=== PATIENT | male | born 1950 | race Caucasian/White ===

== ENCOUNTER 2018-01-15 14:40 | Inpatient (IN) | payer OTHER, MEDICARE ==
[~2018-01-15] VITALS: Ht 188 cm; Wt 106.6 kg
[~2018-01-15 14:40] MED LIST: AMLODIPINE BESYL5 M1 PO; HYZAAR 25 MG-101 TAB PO; LOSARTAN POTAS100 M1 PO; NORVASC 5MG TAB5 MG PO; TYLENOL XSTR500 MG PO; VALTREX1000 MG PO
--- NOTE | 2018-01-15 15:00 | ED DYSPNEA/ASTHMA COMPLAINT ---
History of Present Illness General Chief Complaint: Dyspnea (COPD, CHF, Other) Stated Complaint: SOB Source: patient, old records, EMS Exam Limitations: no limitations Vital Signs & Intake/Output Vital Signs & Intake/Output ED Intake and Output 01/19 0000 01/18 1200 Intake Total 350 Output Total Balance 350 Intake, Oral 350 Allergies Coded Allergies: No Known Allergies (09/13/17) Triage Note: 67 YO MALE FRANSISCO FROM URGENT CARE. PT STATES HE HAS BEEN HAVING EXERTIONAL SOB FOR THE PAST COUPLE DAYS. STATES HE HAS ARTHRITIS IN HIS BACK AND HAS BEEN TAKING IT EASY AT HOME. STATES TODAY THE SOB GOT WORSE AND HE WENT TO THE URGENT CARE WHO SENT HIM HERE. DENEIS ANY PAIN. STATSE TOOK 2 TYLENOL TABS THIS AM FOR HIS BACK PAIN WITH RELIEF. RA SATS 97%. HR 110s ON MONITOR. Triage Nurses Notes Reviewed? yes Onset: Abrupt Duration: day(s): (3), constant, getting worse Timing: recent history Severity: moderate Activities at Onset: none Modifying Factors: Improves With: rest. Worsens With: movement. Associated Symptoms: denies HPI: 67-year-old male history of hypertension high cholesterol presents brought in by an was from urgent care. The patient states that he has had progressively worsening exertional dyspnea now at rest for the past few days. No history of underlying lung disease or shortness of breath in the past. No cough or pain with inspiration or hemoptysis. No chest pain. He does not smoke. The patient was recently seen by his orthopedist because he was having a sore lower back for which she's been wearing a brace. He denies recent immobility he's been caring for his who recently had hip surgery. No leg swelling. No history of similar symptoms in the past (Clarke MONTEIRO,Pipo) Reconcile Medications Amlodipine Besylate 5 MG TABLET 1 TAB PO DAILY BP (Reported) Losartan Potassium 100 MG TABLET 1 TAB PO DAILY BP (Reported) Meloxicam 7.5 MG TABLET 1 TAB PO DAILY inflammation pain (Reported) Rivaroxaban (Xarelto) 15 MG TABLET 1 TAB PO BID pulmonary embolism take 1 tab (15 mg) twice a day for 3 weeks then switch to 1 tab (20 mg) daily with food. Rivaroxaban (Xarelto) 20 MG TABLET 1 TAB PO DAILY pulmonary embolism with food (Andrew CORTES,Nino Laguna) Past History Travel History Traveled to [place] past 21 day No Medical History Any Pertinent Medical History? see below for history Cardiovascular: hypertension, hyperlipidemia Gastrointestinal: pancreatitis Musculoskeletal: rotator cuff injury History of MRSA: No History of VRE: No History of CDIFF: No Tetanus Vaccine: 09/13/17 Surgical History Surgical History: none Psychosocial History Who do you live with Spouse Services at Home None What is your primary language Nigerien Tobacco Use: Never used Family History Family History, If Any: SISTER FH: colon cancer Hx Contributory? No (Pipo Martins) Review of Systems Review of Systems Constitutional: Reports: see HPI. Comments Review of systems: See HPI, All other systems negative. Constitutional, no chills no fever HEENT: no sore throat no congestion Cardiovascular: No chest pain , Skin: no rashes, no change in skin Respiratory: dyspnea no cough no sputum GI: No nausea no vomiting, no diarrhea : No dysuria Muscle skeletal: No joint pain, no back pain, Neurologic: , no headache Heme/endocrine: No bruising Immunology: No lymphadenopathy (Pipo Martins) Physical Exam Physical Exam General Appearance: well developed/nourished, alert, awake Respiratory: normal breath sounds Comments: Well-developed well-nourished person in no acute distress HEENT: Normal EENT exam; PERRL, EOMI, HEAD is atraumatic. moist mucous membranes. Neck: Supple, normal range of motion Back: Nontender, Full range of motion Cardiovascular: Regular rate and rhythms no murmurs rubs or gallops, normal JVP Respiratory: Chest nontender.There were no bony deformities, no asymmetry. No respiratory distress. Patient speaking in full complete sentences. Breath sounds clear to auscultation bilaterally: NO W/R/R Abdomen: Soft, nontender nondistended, no appreciable organomegaly. Normal bowel sounds. No rebound/guarding, No ascites. Rectal: Nontender. Heme negative stool. Extremity: No edema, full range of motion of extremities, Neuro: Alert oriented x3, motor sensory normal, There were no obvious focal neurologic abnormalities. Skin: No appreciable rash on exposed skin, skin is warm and dry. Psych: Mood and affect is normal, memory and judgment is normal. Core Measures ACS in differential dx? Yes CVA/TIA Diagnosis No Sepsis Present: No Sepsis Focused Exam Completed? No (Pipo Martins) Progress Differential Diagnosis: asthma, AMI, CHF, COPD, pericarditis, pulmonary embolism , pneumonia, pneumothorax, unstable angina Diagnostic Imaging: Viewed by Me: Radiology Read. Discussed w/RAD: Radiology Read. Radiology Impression: PATIENT: CHARLINE SHAFER PRESENT AGE: 67 PATIENT ACCOUNT NO: [id number] : 52 LOCATION: ER ORDERING PHYSICIAN: Pipo MONTEIRO SERVICE DATE: 01/15/18150 EXAM TYPE: RAD - XRY-PORTABLE CHEST XRAY EXAMINATION: XR PORTABLE CHEST CLINICAL INFORMATION: Dyspnea, evaluate for pneumonia or CHF. COMPARISON: Chest x-ray dated 01/19/2015. TECHNIQUE: Portable frontal view of the chest was obtained. FINDINGS: No significant abnormality is noted involving the heart, lungs, mediastinum, bony thorax or soft tissues. IMPRESSION: No acute cardiopulmonary findings, no significant interval change compared to the previous study. DICTATED BY: Estrella Ludwig MD DATE/TIME DICTATED:01/15/181530 ASSOCIATE PROFESSOR:ASMITA DATE/TIME TRANSCRIBED:01/15/181530 CONFIDENTIAL, DO NOT COPY WITHOUT APPROPRIATE AUTHORIZATION. <Electronically signed in Other Vendor System> SIGNED BY: Estrella Lduwig MD 01/15/18 1536, PATIENT: CHARLINE SHAFER PRESENT AGE: 67 PATIENT ACCOUNT NO : [id number] : 52 LOCATION: [facility] ORDERING PHYSICIAN: Pipo MONTEIRO SERVICE DATE: 01/15/18651 EXAM TYPE: CAT - CTA CHEST-PULMONARY EMBOLISM EXAMINATION: CT ANGIOGRAM OF THE CHEST WITH AND WITHOUT CONTRAST (CT PULMONARY ANGIOGRAM FOR PE) CLINICAL INFORMATION: Dyspnea. COMPARISON: Portable chest . CT of abdomen and pelvis 01/19/2016, 11/26/2014. TECHNIQUE: Prior to contrast administration, noncontrast localization images were obtained. Subsequently, multidetector volumetric imaging was performed from the thoracic inlet to below the diaphragms following the administration of 95 mL Optiray 350 intravenous contrast. No contrast reaction reported. Sagittal, coronal, and MIP oblique sagittal reformatted images were obtained on the CT workstation, uploaded to PACS, and reviewed. DLP: 532.45 mGy-cm FINDINGS: QUALITY OF STUDY/ CONTRAST BOLUS: Satisfactory. PULMONARY ARTERIES: There is extensive bilateral pulmonary emboli. Multiple emboli seen in both the right and left lungs in the secondary and tertiary branches of the vessels involving all lobes. THORACIC AORTA: No aneurysm or dissection. Scattered vascular wall calcification of the aorta at the aortic arch. LUNG: No focal consolidation, nodules or masses. PLEURA: No pleural effusion or pneumothorax. MEDIASTINUM: Normal heart size. No pericardial effusion. No hilar or mediastinal lymphadenopathy. No evidence of septal bowing or right heart strain. CHEST WALL/AXILLA: No axillary or internal mammary lymphadenopathy. OSSEOUS STRUCTURES: Degenerative spondylosis of spine with multilevel endplate spurring of the vertebrae. UPPER ABDOMEN: Focal low attenuation in the left lobe of liver adjacent to the gallbladder fossa and around a geographic area measuring about 5 cm. This is likely focal fatty infiltration. Not seen on the CAT scan of 01/19/2015. This can be further assessed with MRI. No reflux of contrast into the hepatic veins to suggest elevated right heart pressures. IMPRESSION: 1. Extensive bilateral pulmonary emboli. 2. Focal low-attenuation left lobe of liver near the gallbladder fossa likely from focal fatty change. This can be further assessed with dynamic MRI imaging. VTE: Negative. This critical result was discussed with Pipo Mir on 01/15/2018, 5:10 PM and it was ascertained that the content and urgency of the report was understood at the time of direct communication. DICTATED BY: Evan Garcia MD DATE/TIME DICTATED:01/15/181702 ASSOCIATE PROFESSOR:ASMITA DATE/TIME TRANSCRIBED:01/15/181702 CONFIDENTIAL, DO NOT COPY WITHOUT APPROPRIATE AUTHORIZATION. <Electronically signed in Other Vendor System> SIGNED BY: Evan Garcia MD 01/15/18 173 Initial ED EKG: stach at 100, no acute st seg changes, normal axis Rhythm Strip: sinus tachycardia (Pipo Martins) Plan of Care: Orders Procedure Date/time Status Heart Healthy Diet 01/16 B Active Patient Data 01/15 1835 Active ED Holding Orders 01/15 1719 Active Admit to inpatient 01/15 1719 Active Vital Signs 01/15 1719 Active Code Status 01/15 1719 Active Add-on Test (ER Only) 01/15 1714 Active PARTIAL THROMBOPLASTIN TIME 01/15 1550 Complete FingerStick- Glucose 01/15 1547 Active D-DIMER 01/15 1506 Complete Telemetry/Cube Cutter 01/15 1500 Active TROPONIN LEVEL 01/15 1500 Complete PROTHROMBIN TIME 01/15 1500 Complete COMPREHENSIVE METABOLIC PANEL 01/15 1500 Complete CBC WITHOUT DIFFERENTIAL 01/15 1500 Complete B-TYPE NATRIURETIC PEP (BNP) 01/15 1500 Complete Intake & Output 01/15 1448 Active EKG 01/15 1442 Active Laboratory Tests 01/15/18 1550: PT 13.1 H, INR 1.25 H 01/15/18 1550: Anion Gap 14, Estimated GFR > 60, BUN/Creatinine Ratio 16.7, Glucose 111 H, Calcium 9.4, Total Bilirubin 0.4, AST 20, ALT 10 L, Alkaline Phosphatase 81, Troponin I 0.59 *H, Dok-E-Qiponxinqsc Pept 864 H, Total Protein 7.7, Albumin 4.2, Globulin 3.5, Albumin/Globulin Ratio 1.2, APTT 31, D-Dimer High Sensitivty 61869 H, CBC w Diff NO MAN DIFF REQ, RBC 3.81 L, MCV 86.7, MCH 28.3, MCHC 32.6 L, RDW 13.4, MPV 8.7, Gran % 71.7, Lymphocytes % 15.8 L, Monocytes % 8.5, Eosinophils % 3.0, Basophils % 1.0, Absolute Granulocytes 8.1 H, Absolute Lymphocytes 1.8, Absolute Monocytes 1.0 H, Absolute Eosinophils 0.3, Absolute Basophils 0.1 Labs ordered juanjo Capps reviewed patient make you sign Medrol DuoNeb with minimal improvement after breathing treatment plan patient placed on 2 L by myself medicated morphine 4 Nicolas grams IV for comfort as he cannot find a comfortable position secondary to his chronic lower back pain CTA ordered after I discussed with the patient his labs to date and a troponin Case discussed with Dr. Morales heparin ordered pending CTA results Dr. Morales spoke with Dr. ALICEA- we will admit to telemetry I spoke with Dr. Mckee's community relations assistant who will consult there has been no chest pain, no ekg changes (Pipo Martins) (Andrew CORTES,Nino Laguna) Departure Departure Time of Disposition: 1708 Disposition: STILL A PATIENT Condition: Stable Clinical Impression Primary Impression: Pulmonary emboli Secondary Impressions: Elevated troponin, Liver lesion Referrals: Doroteo CORTES,Evan Payne (PCP/Family) Departure Forms: Customer Survey General Discharge Information Admission Note Spoke With: Cheko CORTES,Debbie Documentation of Exam: Documentation of any treatments & extenuating circumstances including Concerns Regarding Discharge (functional status, medication knowledge or non-compliance, living conditions, etc.) that warrant an admission rather than observation: CARDIOLOGY CONSULT, TREND LABS, TREND TROPS TELE MONOTRING PRMEATURE DISCHARGE MEDICALLY HARMFUL, MRI OF ABD TO INVESTIGATE LIVER FINDINGS (Pipo Martins) Departure Prescriptions: Current Visit Scripts Rivaroxaban (Xarelto) 1 TAB PO BID #42 TAB take 1 tab (15 mg) twice a day for 3 weeks then switch to 1 tab (20 mg) daily with food. Rivaroxaban (Xarelto) 1 TAB PO DAILY #14 TAB with food Admission Note Documentation of Exam: Documentation of any treatments & extenuating circumstances including Concerns Regarding Discharge (functional status, medication knowledge or non-compliance, living conditions, etc.) that warrant an admission rather than observation: PA/OFFICE SPEC Co-Sign Statement Statement: ED Attending supervision documentation- [X] I saw and evaluated the patient. I have also reviewed all the pertinent lab results and diagnostic results. I agree with the findings and the plan of care as documented in the PA's/OFFICE SPEC's documentation. [X] I have reviewed the ED Record and agree with the PA's/OFFICE SPEC's documentation. [] Additions or exceptions (if any) to the PAs/OFFICE SPEC's note and plan are summarized below: [PT TO BE ADMITTED IV HEPARIN, CARDIOLOGY CONSULTATION, PULM CONSULT, ECHO, ] (Andrew CORTES,Nino Laguna) Critical Care Note Critical Care Note Critical Care Time: 30-74 min (Pipo Martins)
--- NOTE | 2018-01-15 15:36 | RADIOLOGY REPORT ---
EXAMINATION: XR PORTABLE CHEST CLINICAL INFORMATION: Dyspnea, evaluate for pneumonia or CHF. COMPARISON: Chest x-ray dated 01/19/2015. TECHNIQUE: Portable frontal view of the chest was obtained. FINDINGS: No significant abnormality is noted involving the heart, lungs, mediastinum, bony thorax or soft tissues. IMPRESSION: No acute cardiopulmonary findings, no significant interval change compared to the previous study.
[2018-01-15 16:10] LABS: PT 13.1 SEC (9.4-12.5)
[2018-01-15 16:11] LABS: ABSOLUTE BASOPHIL COUNT 0.1 /CUMM (0.0-0.2); ABSOLUTE EOSINOPHIL COUNT 0.3 /CUMM (0.0-0.7); ABSOLUTE GRANULOCYTE CT 8.1 /CUMM (1.4-6.5); ABSOLUTE LYMPH COUNT 1.8 /CUMM (1.2-3.4); GRANULOCYTE % 71.7 % (42.2-75.2); MEAN CORPUSCULAR HGB 28.3 PG (27.0-31.0); MEAN CORPUSCULAR HGB CONC 32.6 G/DL (33.0-37.0); MEAN CORPUSCULAR VOLUME 86.7 FL (80.0-94.0); MEAN PLATELET VOLUME 8.7 FL (7.4-10.4); PLATELET COUNT 361 /CUMM (130-400); RBC DISTRIBUTION WIDTH 13.4 % (11.5-14.5); RED BLOOD CELL CT 3.81 /CUMM (4.70-6.10); WHITE BLOOD CELL COUNT 11.2 /CUMM (4.8-10.8)
[2018-01-15 17:29] LABS: PTT 31 SEC (25-37)
--- NOTE | 2018-01-15 17:30 | History & Physical ---
General Information and HPI Allergies/Medications Allergies: Coded Allergies: No Known Allergies (09/13/17) Home Med list Amlodipine Besylate 5 MG TABLET 1 TAB PO DAILY BP (Reported) Losartan Potassium 100 MG TABLET 1 TAB PO DAILY BP (Reported) Past History Travel History Traveled to [place] past 21 day No Medical History Cardiovascular: hypertension, hyperlipidemia Gastrointestinal: pancreatitis Musculoskeletal: rotator cuff injury History of MRSA: No History of VRE: No History of CDIFF: No Tetanus Vaccine: 09/13/17 Surgical History Surgical History: none Past Family/Social History Family History Relations & Conditions if any SISTER FH: colon cancer Psychosocial History Services at Home: None
--- NOTE | 2018-01-15 17:30 | CT SCAN REPORT ---
EXAMINATION: CT ANGIOGRAM OF THE CHEST WITH AND WITHOUT CONTRAST (CT PULMONARY ANGIOGRAM FOR PE) CLINICAL INFORMATION: Dyspnea. COMPARISON: Portable chest 01/15/2018. CT of abdomen and pelvis 01/19/2016, 11/26/2014. TECHNIQUE: Prior to contrast administration, noncontrast localization images were obtained. Subsequently, multidetector volumetric imaging was performed from the thoracic inlet to below the diaphragms following the administration of 95 mL Optiray 350 intravenous contrast. No contrast reaction reported. Sagittal, coronal, and MIP oblique sagittal reformatted images were obtained on the CT workstation, uploaded to PACS, and reviewed. DLP: 532.45 mGy-cm FINDINGS: QUALITY OF STUDY/CONTRAST BOLUS: Satisfactory. PULMONARY ARTERIES: There is extensive bilateral pulmonary emboli. Multiple emboli seen in both the right and left lungs in the secondary and tertiary branches of the vessels involving all lobes. THORACIC AORTA: No aneurysm or dissection. Scattered vascular wall calcification of the aorta at the aortic arch. LUNG: No focal consolidation, nodules or masses. PLEURA: No pleural effusion or pneumothorax. MEDIASTINUM: Normal heart size. No pericardial effusion. No hilar or mediastinal lymphadenopathy. No evidence of septal bowing or right heart strain. CHEST WALL/AXILLA: No axillary or internal mammary lymphadenopathy. OSSEOUS STRUCTURES: Degenerative spondylosis of spine with multilevel endplate spurring of the vertebrae. UPPER ABDOMEN: Focal low attenuation in the left lobe of liver adjacent to the gallbladder fossa and around a geographic area measuring about 5 cm. This is likely focal fatty infiltration. Not seen on the CAT scan of 01/19/2015. This can be further assessed with MRI. No reflux of contrast into the hepatic veins to suggest elevated right heart pressures. IMPRESSION: 1. Extensive bilateral pulmonary emboli. 2. Focal low-attenuation left lobe of liver near the gallbladder fossa likely from focal fatty change. This can be further assessed with dynamic MRI imaging. VTE: Negative. This critical result was discussed with Pipo Mir on 01/15/2018, 5:10 PM and it was ascertained that the content and urgency of the report was understood at the time of direct communication.
--- NOTE | 2018-01-15 19:31 | History & Physical ---
Melissa CORTES,[facility] 01/15/181930: General Information and [facility] MD Statement: I have seen and personally examined CHARLINE SHAFER and documented this H&P. The patient is a 67 year old M who presented with a patient stated chief complaint of [shortness of breath]. Source of Information: patient Exam Limitations: no limitations History of Present Illness: Patient is a 67-year-old man with a past medical history of hypertension, hyperlipidemia, alcohol abuse with pancreatitis, vocal cord polyp and back pain due to cervical degenerative joint disease with recent aggravation in November ( on a back brace for symptomatic relief). He presents with shortness of breath of one-week duration with worsening 3 days ago. Patient noticed that had progressively worsening shortness of breath at exertion which started last week. Initially he was able to go up a flight of stairs and feels slightly short of breath but this progressed until he could only walk a few steps and felt extremity short of breath. Today he was feeling short of breath even at rest and while he was in the shower he experienced lightheadedness and palpitations then decided to go for evaluation in the urgent care clinic. He was sent to the ER from there. He denies chest pains, diaphoresis, orthopnea, leg swelling. However he did notice pain in his right calf and leg which he called a "charley horse" starting 1 week ago-at the onset of shortness of breath. The right leg pain subsequently resolved after a few days. He denies recent long distance travel or trauma to his legs. He denies prior history of DVT or pulmonary embolism. He has been fairly active despite his back pain for which he uses a back brace and is seen by orthopedic surgeon Dr. Bullock. Of note he reports intentional weight loss of about 70 pounds over the past 3 years from diet modifications. He denies loss of appetite change in bowel habits , nausea or abdominal pain. He denies dysuria, hematuria or difficulty with urine. He denies cough, fevers, chills or malaise. Allergies/Medications Allergies: Coded Allergies: No Known Allergies (09/13/17) Home Med list Amlodipine Besylate 5 MG TABLET 1 TAB PO DAILY BP (Reported) Losartan Potassium 100 MG TABLET 1 TAB PO DAILY BP (Reported) Meloxicam 7.5 MG TABLET 1 TAB PO DAILY inflammation pain (Reported) Past History Travel History Traveled to [place] past 21 day No Medical History Cardiovascular: hypertension, hyperlipidemia Gastrointestinal: pancreatitis Musculoskeletal: rotator cuff injury History of MRSA: No History of VRE: No History of CDIFF: No Tetanus Vaccine: 09/13/17 Surgical History Surgical History: rotator cuff repair Past Family/Social History Family History Relations & Conditions if any SISTER FH: colon cancer BROTHER FHx: congenital heart disease Psychosocial History Where do you live? Home Who Do You Live With? spouse Services at Home: None Primary Language: Hungarian Smoking Status: Former Smoker (quit 30 years ago. 3 pack yrs) ETOH Use: occasional use Functional Ability Ambulation: independent Review of Systems Review of Systems Constitutional: Reports: see HPI. Exam & Diagnostic Data Last 24 Hrs of Vital Signs/I&O Vital Signs Date Time Temp Pulse Resp B/P B/P Pulse O2 O2 Flow FiO2 Mean Ox Delivery Rate 01/15 2236 98.1 107 14 134/82 97 01/15 2157 Nasal 2.0L Cannula 01/15 2130 Nasal 2.0L Cannula 01/15 2043 98.7 117 16 150/84 92 01/15 1946 98.6 105 18 110/74 97 Nasal 2.0L Cannula 01/15 1639 98.4 103 18 116/83 100 Nasal 2.0L Cannula 01/15 1520 95 01/15 1448 97 Room Air 01/15 1445 97.3 113 18 126/73 97 Room Air Intake & Output 01/15 1600 01/15 0800 01/15 0000 Intake Total 0 Output Total Balance 0 Intake, Oral 0 Patient 235 lb Weight Weight Reported by Patient Measurement Method Physical Exam General Appearance Alert, Oriented X3, Cooperative, Mild Distress Skin No Rashes Skin Temp/Moisture Exam: Warm/Dry Sepsis Skin Exam (color): Normal for Ethnicity HEENT Atraumatic, PERRLA, EOMI, Mucous Membr. moist/pink Neck Supple, No JVD, No thryomegaly Lymphatic Cervical nl Cardiovascular Regular Rate, Normal S1, Normal S2, No Murmurs Lungs Clear to Auscultation, Normal Air Movement Abdomen Normal Bowel Sounds, Soft, No Tenderness, No Hepatospenomegaly, No Masses Neurological Normal Speech, Strength at 5/5 X4 Ext, Normal Tone, Sensation Intact, Cranial Nerves 3-12 NL Extremities No Edema, Normal Pulses Diagnostic Data CXR Results IMPRESSION: No acute cardiopulmonary findings, no significant interval change compared to the previous study. Other Results CTA chest IMPRESSION: 1. Extensive bilateral pulmonary emboli. 2. Focal low-attenuation left lobe of liver near the gallbladder fossa likely from focal fatty change. This can be further assessed with dynamic MRI imaging. Assessment/Plan Assessment: Patient is a 67-year-old man with a past medical history of hypertension, hyperlipidemia, alcohol abuse with pancreatitis, vocal cord polyp and back pain due to cervical degenerative joint disease with recent aggravation in November ( on a back brace for symptomatic relief). He presents with shortness of breath of one-week duration with worsening 3 days ago, and transient right calf/leg pain 1 week ago. He was tachypneic, tachycardic with an elevated d-dimer on presentation. He had a CT angiogram of his chest that shows extensive bilateral pulmonary embolism but without overt signs of elevated right heart pressures. He has elevated troponin to 0.59 ng/ML with no chest pain and no EKG changes which could possibly be secondary to type II GA. He is hemodynamically stable and is on an IV heparin drip at this time which will be continued. There is some concern that his pulmonary embolism is unprovoked and he will need to be investigated with a hematology oncology workup and hematology consultation. Problem list 1. Acute bilateral pulmonary embolism 2. Suspected right leg DVT 3. Elevated troponin secondary to probable type II GA 3. Hypertension 4. Hyperlipidemia Plan * Admit to telemetry * Continue IV heparin drip pulmonary embolism protocol * Serial EKGs and troponins and trend troponins to a peak * Monitor CBC while on heparin drip * Urgent echocardiogram * Doppler ultrasound bilateral lower extremities to rule out DVT * Continue oxygen by nasal cannula to keep O2 sat greater than 92% * Monitor vital signs and blood pressure closely and if he becomes hypotensive we'll consider fibrinolytic therapy with TPA * Pulmonology consultation * Cardiology consultation * Hematology oncology evaluation in the morning for unprovoked pulmonary embolism * Hold antihypertensives with losartan and amlodipine for now and can restart his blood pressure greater than 160/100 mmhg * By mouth Tylenol, by mouth Motrin and IV morphine when necessary for pain * DVT prophylaxis with IV heparin drip * Add lipid panel in the a.m. * Patient is full code As Ranked By This Provider Problem List: 1. Pulmonary emboli 2. Elevated troponin 3. HTN (hypertension) 4. DVT prophylaxis 5. Full code status Core Measures/Misc (08/11) Acute Coronary Syndrome ACS Diagnosis: No Congestive Heart Failure Congestive Heart Failure Diagnosis No Cerebrovascular Accident CVA/TIA Diagnosis: No VTE (View Protocol) VTE Risk Factors Age>40 No Mechanical VTE Prophylaxis d/t N/A MechProphylax Ordered No VTE Pharm Prophylaxis d/t NA PharmProphylax ordered Sepsis (View protocol) Sepsis Present: No Jose M CORTES, [facility] 01/15/182035: Attending MD Review Statement Attending Statement Attending MD Statement: examined this patient, discuss w/resident/PA/CERTIFIED CREDIT COUNSELOR, agreed w/resident/PA/CERTIFIED CREDIT COUNSELOR, reviewed images, amended to note Attending Assessment/Plan: 67 yo M with h/o HTN, previous alcohol abuse, pancreatitis, is here for evaluation of progressively worsening exertional dyspnea and palpitations over the past 1 week. He is not able to carry out his activities of daily living for the past 3 days due to dyspnea with minimal exertion. He went to an Urgent care center from where he was sent to ER for evaluation. Of note, patient developed low back pain (Nov 2017) after shoveling snow. He was seen at a walk-in and prescribed naproxen, flexeril and vicodin without much relief. He then saw Dr. Bullock who suggested anti-inflammatory meloxicam and a back brace. If symptoms do not improve, plan is for MRI of lumbar spine. Due to the back pain, patient has been more sedentary than his usual active self. He also noticed pain in right calf 1 week back which he presumed was a ' charley horse'. He denies any personal h/o DVT or PE. No family h/o VTE. He denies recent long flights/ travel, hormone use or recent surgery. He reports 70 lbs weight loss over 2-3 years intentional. Never had a colonoscopy. Last PSA (May 2017) was normal. Vitals stable except for tachycardia. Exam as above. Labs: WBC 11.2, H/H 10.8/33 , Plt 361, INR 1.25, D-dimer 56105, glucose 111, trop 0.59. CXR: no acute findings. CTA chest: extensive bilateral pulmonary emboli, focal low attenuation left lobe of liver likely focal fatty change. Degenerative spondylosis of spine with multilevel endplate spurring of vertebrae. EKG: sinus tachycardia, Qtc 474. LE doppler: right occlusive thrombus from distal femoral vein through calf, left DVT in peroneal vein and posterior tibial vein. Assessment and plan: 1. Acute bilateral pulmonary embolism provoked vs unprovoked 2. Bilateral leg DVT 3. Elevated troponin likely Type 2 GA 4. Essential hypertension 5. Leukocytosis likely reactive - Admit to Telemetry - Serial EKG and troponin - Obtain Echo - Cardio consult - IV heparin per PTT protocol - Transition to NOAC in AM - Guaiac all stools, monitor H/H and Platelet counts - check urinalysis and urine tox screen - Pulm and Hematology consults - Vascular consult given extent of DVT - Hold amlodipine and losartan tonight, resume in AM - Check TSH, free T4, HbA1c, lipid panel - continue back brace and pain management with motrin and morphine PRN. DVT ppx IV heparin. Full code.
[2018-01-15 20:43] VITALS: BP 150/84
[2018-01-15] MEDS ORDERED: MELOXICAM7.5 M1 PO (20:44)
--- NOTE | 2018-01-15 21:54 | Admission Certification ---
Admission Certification Certification Statement - As attending physician, I certify that at the time of - admission, based on clinical presentation, severity of - symptoms, need for further diagnostic testing and - therapeutic interventions, and risk of adverse outcomes - without in-hospital treatment, in my clinical assessment, - this patient requires an acute hospital stay for a minimum - of two nights or longer. I have also considered psychsocial - factors such as support system, advanced age, financial - issues, cognitive issues, and failed out-patient treatments, - past re-admission history, safety of patient, and lack of - compliance as applicable. Specific rationale supporting this admission is: Acute bilateral pulmonary embolism, elevated troponin with bilateral leg DVT.
[2018-01-15 22:36] VITALS: BP 134/82
--- NOTE | 2018-01-15 23:47 | ULTRASOUND REPORT ---
EXAMINATION: US TRIPLEX OF LOWER EXTREMITIES, BILATERAL CLINICAL INFORMATION: Pulmonary embolism. 1 heparin. COMPARISON: None TECHNIQUE: Color-flow triplex imaging with spectral analysis and compression Doppler were performed on the lower extremities. FINDINGS: There is bilateral lower extremity deep vein thrombosis. Right lower leg: Thrombus present from the distal femoral vein through the popliteal vein into the calf involving the posterior tibial vein and peroneal veins. Left lower leg: Deep vein thrombosis is seen in the calf involving one of the paired posterior tibial veins and both of the peroneal veins. The veins more proximal, from the popliteal vein through the groin, is normal. There is no Morris's cyst. IMPRESSION: 1. Right lower extremity: Occlusive thrombus from the distal femoral vein through the calf. 2. Left lower extremity: Deep vein thrombosis in the peroneal vein and posterior tibial vein. This critical result was discussed with Dr. Lurdes Joya on 01/15/2018, 11:40 PM and it was ascertained that the content and urgency of the report was understood at the time of direct communication.
[2018-01-16 00:43] LABS: PTT 36 SEC (25-37)
[2018-01-16 04:04] LABS: ABSOLUTE BASOPHIL COUNT 0 /CUMM (0.0-0.2); ABSOLUTE EOSINOPHIL COUNT 0 /CUMM (0.0-0.7); ABSOLUTE GRANULOCYTE CT 10.6 /CUMM (1.4-6.5); ABSOLUTE LYMPH COUNT 0.6 /CUMM (1.2-3.4); ABSOLUTE MONOCYTE COUNT 0.2 /CUMM (0.10-0.60); BASOPHIL % 0.1 % (0.0-2.0); EOSINOPHIL % 0.2 % (0-5); MEAN CORPUSCULAR HGB 28.8 PG (27.0-31.0); MEAN CORPUSCULAR HGB CONC 33.2 G/DL (33.0-37.0); MEAN CORPUSCULAR VOLUME 86.8 FL (80.0-94.0); MEAN PLATELET VOLUME 8.7 FL (7.4-10.4); PLATELET COUNT 380 /CUMM (130-400); RBC DISTRIBUTION WIDTH 13.2 % (11.5-14.5); RED BLOOD CELL CT 3.81 /CUMM (4.70-6.10); WHITE BLOOD CELL COUNT 11.4 /CUMM (4.8-10.8)
[2018-01-16 06:00] VITALS: BP 130/76
--- NOTE | 2018-01-16 07:36 | PN- Housestaff ---
Casi CORTES,[facility] 01/16/18 0735: Subjective Follow-up For: Bilateral lower extremity DVT Bilateral PE Tele-Events Since Last Visit: Sinus tachycardia Heart rate 85-104. Subjective: Patient resting comfortably in bed, denies any chest pain, palpitations, shortness of breath, lightheadedness/dizziness or any syncopal episodes. Review of Systems Constitutional: Reports: no symptoms. EENTM: Reports: no symptoms. Cardiovascular: Reports: no symptoms. Respiratory: Reports: no symptoms. Gastrointestinal: Reports: no symptoms. Genitourinary: Reports: no symptoms. Musculoskeletal: Reports: no symptoms. Skin: Reports: no symptoms. Neurological/Psychological: Reports: no symptoms. Hematologic/Endocrine: Reports: no symptoms. Immunologic/Allergic: Reports: no symptoms. Objective Last 24 Hrs of Vital Signs/I&O Vital Signs Date Time Temp Pulse Resp B/P B/P Pulse O2 O2 Flow FiO2 Mean Ox Delivery Rate 01/16 1433 98.8 90 20 156/84 96 Room Air 01/16 0800 Nasal 2.0L Cannula 01/16 0600 98.5 93 20 130/76 100 01/15 2236 98.1 107 14 134/82 97 01/15 2157 Nasal 2.0L Cannula 01/150 Nasal 2.0L Cannula 01/153 98.7 117 16 150/84 92 01/15 1946 98.6 105 18 110/74 97 Nasal 2.0L Cannula Intake & Output 01/16 1600 01/16 0800 01/16 0000 Intake Total 1214.5 600 26 Output Total 250 Balance 1214.5 350 26 Intake, IV 254.5 240 26 Intake, Oral 960 360 Output, Urine 250 Weight Reported by Patient Measurement Method Physical Exam General Appearance: Alert, Oriented X3, Cooperative Skin: No Rashes, No Breakdown Cardiovascular: Regular Rate, Normal S1, Normal S2 Lungs: Normal Air Movement Abdomen: Normal Bowel Sounds, Soft, No Tenderness Extremities: No Clubbing, No Cyanosis, No Edema Current Medications: Current Medications Sig/Natalee Start time Last Medication Dose Route Stop Time Status Admin Acetaminophen 650 MG Q6P PRN 01/15 2100 AC PO Heparin Sodium 4,200 UNIT ONCE ONE 01/16 1700 DC 01/16 (Porcine) IV 01/16 1701 1655 Heparin Sodium 10,000 UNIT .STK-MED ONE 01/16 0133 DC (Porcine) IV 01/16 0134 Heparin Sodium 7,995 UNIT ONCE ONE 01/16 013 DC 01/16 (Porcine) IV 01/16 013 0130 Heparin Sodium 25,000 UNIT Q24H 01/15 2100 AC 01/16 (Porcine) IV 1109 Sodium Chloride 500 ML Ibuprofen 600 MG Q6P PRN 01/15 2100 AC 01/16 PO 0306 Melatonin 5 MG AT BEDTIME 01/16 2345 AC PO Morphine Sulfate 2 MG Q4P PRN 01/15 2100 AC 01/15 IV 2155 Last 24 Hrs of Lab/Marlon Results Last 24 Hrs of Labs/Mics: Laboratory Tests 01/16/18 1540: APTT 53 H 01/16/18 0630: APTT 100 H 01/16/18 0550: Urine Opiates Screen 3825.00 H, Methadone Screen < 40, Barbiturate Screen < 60, Ur Phencyclidine Scrn < 6.00, Amphetamines Screen < 100, U Benzodiazepines Scrn < 85, Urine Cocaine Screen < 50, Urine Cannabis Screen > 80.00 H, Urine Color YEL, Urine Clarity CLEAR, Urine pH 6.0, Ur Specific [place] 1.020, Urine Protein TRACE H, Urine Ketones TRACE H, Urine Nitrite NEG, Urine Bilirubin NEG, Urine Urobilinogen 0.2, Ur Leukocyte Esterase NEG, Ur Microscopic SEDIMENT EXAMINED, Urine WBC RARE, Urine Mucus MOD H, Urine Hemoglobin NEG, Urine Glucose 100 H 01/16/18 0300: Anion Gap 15, Estimated GFR > 60, BUN/Creatinine Ratio 17.8, Troponin I 0.35 *H, Triglycerides 60, Cholesterol 176, LDL Cholesterol, Calc 106, HDL Cholesterol 58 , Cholesterol/HDL Ratio 3, APTT Cancelled, CBC w Diff NO MAN DIFF REQ, RBC 3.81 L, MCV 86.8, MCH 28.8, MCHC 33.2, RDW 13.2, MPV 8.7, Gran % 93.0 H, Lymphocytes % 5.3 L, Monocytes % 1.4 L, Eosinophils % 0.2, Basophils % 0.1, Absolute Granulocytes 10.6 H, Absolute Lymphocytes 0.6 L, Absolute Monocytes 0.2, Absolute Eosinophils 0, Absolute Basophils 0 01/15/18 2350: APTT 36 01/15/18 2100: Troponin I 0.49 *H Assessment/Plan Assessment: Patient is a 67-year-old man with a past medical history of hypertension, hyperlipidemia, alcohol abuse with pancreatitis, vocal cord polyp and back pain due to cervical degenerative joint disease with recent aggravation in November ( on a back brace for symptomatic relief) presents with shortness of breath and right leg pain. Problem list; 1. Bilateral lower extremity DVT 2. Bilateral PE 3. History of hypertension, hyperlipidemia, pancreatitis and back pain due to DJD - Continue IV heparin. We'll change to oral anticoagulation tomorrow - Appreciate Haem/Onc recommendations. Suggests hypercoagulable workup as an outpatient. - O2 sats 93% on 2 L of oxygen. Will try to wean the patient off of oxygen. - Appreciate vascular surgery consult; recommends continuing IV heparin. No surgical intervention needed for now. - Echocardiogram pending - U tox positive for opiates and cannabis. Denies opiate use, states it could be from the morphine injection he was given in the ER for pain. - TSH, free T4 and A1c pending. - Repeat CBC in the a.m. while on heparin. - Continue home medications. DVT prophylaxis; on IV heparin Patient is full code Problem List: 1. DVT (deep venous thrombosis) 2. Pulmonary emboli 3. Elevated troponin Pain Ratin Pain Location: None Pain Goal: Remain pain free Pain Plan: Pain pathway Tomorrow's Labs & Rationales: CBC(on Heparin) Cheko CORTES,Debbie 01/16/18 1629: Attending MD Review Statement Attending Statement Attending Statement: examined this patient, discuss w/resident/PA/JEWELRY BEARING MAKER, agreed w/resident/PA/JEWELRY BEARING MAKER, reviewed EMR data (avail) Attending Assessment/Plan: Patient seen and examined. Plan of care discussed with the medical team and the patient. Available lab work and radiology test reports were reviewed. Patient does not report any difficulty breathing. Overnight he was slightly tachycardic but afebrile. Other vital signs are stable. Room air saturations 96%. Chest exam is clear legs do not show any tender spots or swelling. WBC count is 11.4 and chemistry labs within normal limits. Tox screen positive for opiates and cannabis. Findings on venous Doppler and CT were noted. Assessment plan Unprovoked DVT bilateral with primary embolism Rule out metastatic malignancy liver Note that patient had not had any colonoscopy Plan Obtain ultrasound the liver to further delineate the hypoattenuated lesion in the left lobe Check CEA and PSA, check alpha-fetoprotein Patient should undergo colonoscopy in near future Echocardiogram to assess heart function Await [facility] surgery input Will plan to switch to oral eliquis in the morning
[2018-01-16 09:39] LABS: PTT 100 SEC (25-37)
--- NOTE | 2018-01-16 09:57 | Cons- Hematology ---
General Information and HPI Consulting Request Date of Consult: 01/16/18 Requested By: Cheko CORTES,Debbie Reason for Consult: PE Source of Information: patient Exam Limitations: no limitations History of Present Illness: Mr. Salter is a 67-year-old male with hypertension, hyperlipidemia, alcohol abuse with pancreatitis, vocal cord polyp and back pain due to cervical degenerative joint disease who presented to [facility] with new worsening dyspnea. He has been having worsening shortness of breath for about 1 week. Over last 3 days he is unable to do much activity due to the dyspnea. Due to the progressive symptoms, he presented to urgent care clinic. He was subsequently sent to the hospital for evaluation. Of note, he had hurt his back and has been relatively immobile for the last few weeks. He has had a back brace in place. On presentation to the hospital, CTA was done and showed extensive bilateral pulmonary emboli. Ultrasound of the lower extremity demonstrated bilateral DVT. He was started on heparin drip and admitted to the hospital. He is doing well this morning. He has no new symptoms. Breathing is about the same. He has no nausea or vomiting. He has no bleeding complication. Allergies/Medications Allergies: Coded Allergies: No Known Allergies (09/13/17) Home Med List: Amlodipine Besylate 5 MG TABLET 1 TAB PO DAILY BP (Reported) Losartan Potassium 100 MG TABLET 1 TAB PO DAILY BP (Reported) Meloxicam 7.5 MG TABLET 1 TAB PO DAILY inflammation pain (Reported) Current Medications: Current Medications Sig/Natalee Start time Last Medication Dose Route Stop Time Status Admin Acetaminophen 650 MG Q6P PRN 01/15 2100 AC PO Albuterol Sulfate 3 ML ONCE ONE 01/15 1515 DC 01/15 INH 01/15 1516 1509 Heparin Sodium 10,000 UNIT .STK-MED ONE 01/16 0133 DC (Porcine) IV 01/16 0134 Heparin Sodium 7,995 UNIT ONCE ONE 01/16 0130 DC 01/16 (Porcine) IV 01/16 0131 0130 Heparin Sodium 25,000 UNIT Q24H 01/15 2100 AC 01/15 (Porcine) IV 0930 Sodium Chloride 500 ML Heparin Sodium 0 .STK-MED ONE 01/15 1648 DC (Porcine) .ROUTE Heparin Sodium 5,000 UNIT ONCE ONE 01/15 1645 DC 01/15 (Porcine) IV 01/15 1646 1657 Heparin Sodium/ 25,000 UNIT ONCE ONE 01/15 1645 DC 01/15 Dextrose IV 01/15 1646 1657 Dextrose/Water 500 ML Ibuprofen 600 MG Q6P PRN 01/15 2100 AC 01/16 PO 0306 Ipratropium [place] 2.5 ML ONCE ONE 01/15 1515 DC 01/15 INH 01/15 1516 1509 Melatonin 5 MG AT BEDTIME 01/16 2345 AC PO Methylprednisolone 0 .STK-MED ONE 01/15 1523 DC .ROUTE Methylprednisolone 125 MG ONCE ONE 01/15 1515 DC 01/15 IV 01/15 1516 1526 Morphine Sulfate 2 MG Q4P PRN 01/15 2100 AC 01/15 IV 2155 Morphine Sulfate 0 .STK-MED ONE 01/15 1650 DC .ROUTE Morphine Sulfate 4 MG ONCE ONE 01/15 1645 DC 01/15 IV 01/15 1646 1657 Review of Systems Review of Systems Constitutional: Denies: chills, fever, malaise, weakness. EENTM: Denies: blurred vision, double vision. Cardiovascular: Denies: chest pain. Respiratory: Reports: short of breath. GI: Denies: abdominal pain. Genitourinary: Denies: dysuria. Musculoskeletal: Reports: back pain. Neurological/Psychological: Denies: anxiety, confusion. Hematologic/Endocrine: Denies: bruising, bleeding. 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 Home Who Do You Live With? spouse Services at Home: None Primary Language: Angolan Smoking Status: Former Smoker (quit 30 years ago. 3 pack yrs) ETOH Use: occasional use Functional Ability Ambulation: independent Exam & Diagnostic Data Vital Signs and I&O Vital Signs Date Time Temp Pulse Resp B/P B/P Pulse O2 O2 Flow FiO2 Mean Ox Delivery Rate 01/16 0800 Nasal 2.0L Cannula 01/16 0600 98.5 93 20 130/76 100 01/15 2236 98.1 107 14 134/82 97 01/15 2157 Nasal 2.0L Cannula 01/150 Nasal 2.0L Cannula 01/15 2043 98.7 117 16 150/84 92 01/15 1946 98.6 105 18 110/74 97 Nasal 2.0L Cannula 01/15 1639 98.4 103 18 116/83 100 Nasal 2.0L Cannula 01/15 1520 95 01/15 1448 97 Room Air 01/15 1445 97.3 113 18 126/73 97 Room Air Intake & Output 01/16 1600 01/16 0800 01/16 0000 Intake Total 600 26 Output Total 250 Balance 350 26 Intake, IV 240 26 Intake, Oral 360 Output, Urine 250 Weight Reported by Patient Measurement Method Physical Exam General Appearance: well developed/nourished, no apparent distress, alert, awake , comfortable Head: atraumatic, normal appearance Eyes: Bilateral: PERRL, EOMI. Ears, Nose, Throat: normal pharynx Neck: normal inspection Respiratory: normal breath sounds, chest non-tender, no respiratory distress Cardiovascular: regular rate/rhythm Gastrointestinal: normal bowel sounds, soft, non-tender Extremities: normal inspection, no edema Neurologic/Psych: awake, alert, oriented x 3 Lymphatic: no anterior cervical sara Last 48 Hours of Lab Results: Laboratory Tests 01/16 01/16 0630 0550 Coagulation APTT (25 - 37 SEC) 100 H Toxicology Urine Opiates Screen (>2000 NG/ML) 3825.00 H Methadone Screen (>300 NG/ML) < 40 Barbiturate Screen (>200 NG/ML) < 60 Ur Phencyclidine Scrn (>25 NG/ML) < 6.00 Amphetamines Screen (>1000 NG/ML) < 100 U Benzodiazepines Scrn (>200 NG/ML) < 85 Urine Cocaine Screen (>300 NG/ML) < 50 Urine Cannabis Screen (>50 NG/ML) > 80.00 H Urines Urine Color (YEL,AMB,STR) YEL Urine Clarity (CLEAR) CLEAR Urine pH (5.0 - 8.0) 6.0 Ur Specific [place] (1.001 - 1.035) 1.020 Urine Protein (NEG,<30 MG/DL) TRACE H Urine Ketones (NEG) TRACE H Urine Nitrite (NEG) NEG Urine Bilirubin (NEG) NEG Urine Urobilinogen (0.1 - 1.0 EU/dl) 0.2 Ur Leukocyte Esterase (NEG) NEG Ur Microscopic SEDIMENT EXAMINED Urine WBC (0 - 2 /HPF) RARE Urine Mucus (FEW,NONE) MOD H Urine Hemoglobin (NEG) NEG Urine Glucose (N MG/DL) 100 H 01/16 01/15 01/15 0300 2350 2100 Chemistry Sodium (137 - 145 mmol/L) 141 Potassium (3.5 - 5.1 mmol/L) 4.2 Chloride (98 - 107 mmol/L) 100 Carbon Dioxide (22 - 30 mmol/L) 25 Anion Gap (5 - 16) 15 BUN (9 - 20 mg/dL) 16 Creatinine (0.7 - 1.2 mg/dL) 0.9 Estimated GFR (>60 ml/min) > 60 BUN/Creatinine Ratio (7 - 25 %) 17.8 Troponin I (<0.11 ng/ml) 0.35 *H 0.49 *H Triglycerides (<150 mg/dL) 60 Cholesterol (< 200 MG/DL) 176 LDL Cholesterol, Calc (65 - 129 mg/dL) 106 HDL Cholesterol (40 - 60 mg/dL) 58 Cholesterol/HDL Ratio (0.00 - 4.88 %) 3 Coagulation APTT (25 - 37 SEC) Cancelled 36 Hematology CBC w Diff NO MAN DIFF REQ WBC (4.8 - 10.8 /CUMM) 11.4 H RBC (4.70 - 6.10 /CUMM) 3.81 L Hgb (14.0 - 18.0 G/DL) 11.0 L Hct (42 - 52 %) 33.0 L MCV (80.0 - 94.0 FL) 86.8 MCH (27.0 - 31.0 PG) 28.8 MCHC (33.0 - 37.0 G/DL) 33.2 RDW (11.5 - 14.5 %) 13.2 Plt Count (130 - 400 /CUMM) 380 MPV (7.4 - 10.4 FL) 8.7 Gran % (42.2 - 75.2 %) 93.0 H Lymphocytes % (20.5 - 51.1 %) 5.3 L Monocytes % (1.7 - 9.3 %) 1.4 L Eosinophils % (0 - 5 %) 0.2 Basophils % (0.0 - 2.0 %) 0.1 Absolute Granulocytes (1.4 - 6.5 /CUMM) 10.6 H Absolute Lymphocytes (1.2 - 3.4 /CUMM) 0.6 L Absolute Monocytes (0.10 - 0.60 /CUMM) 0.2 Absolute Eosinophils (0.0 - 0.7 /CUMM) 0 Absolute Basophils (0.0 - 0.2 /CUMM) 0 01/15 01/15 1550 1550 Chemistry Sodium (137 - 145 mmol/L) 141 Potassium (3.5 - 5.1 mmol/L) 4.0 Chloride (98 - 107 mmol/L) 101 Carbon Dioxide (22 - 30 mmol/L) 26 Anion Gap (5 - 16) 14 BUN (9 - 20 mg/dL) 15 Creatinine (0.7 - 1.2 mg/dL) 0.9 Estimated GFR (>60 ml/min) > 60 BUN/Creatinine Ratio (7 - 25 %) 16.7 Glucose (65 - 99 mg/dL) 111 H Calcium (8.4 - 10.2 mg/dL) 9.4 Total Bilirubin (0.2 - 1.3 mg/dL) 0.4 AST (17 - 59 U/L) 20 ALT (21 - 72 U/L) 10 L Alkaline Phosphatase (< 127 U/L) 81 Troponin I (<0.11 ng/ml) 0.59 *H Eru-G-Pncpeobvxrm Pept (<125 pg/mL) 864 H Total Protein (6.3 - 8.2 g/dL) 7.7 Albumin (3.5 - 5.0 g/dL) 4.2 Globulin (1.9 - 4.2 gm/dL) 3.5 Albumin/Globulin Ratio (1.1 - 2.2 %) 1.2 Coagulation PT (9.4 - 12.5 SEC) 13.1 H INR (0.90 - 1.17) 1.25 H APTT (25 - 37 SEC) 31 D-Dimer High Sensitivty (0 - 243 ng/ml) 98652 H Hematology CBC w Diff NO MAN DIFF REQ WBC (4.8 - 10.8 /CUMM) 11.2 H RBC (4.70 - 6.10 /CUMM) 3.81 L Hgb (14.0 - 18.0 G/DL) 10.8 L Hct (42 - 52 %) 33.0 L MCV (80.0 - 94.0 FL) 86.7 MCH (27.0 - 31.0 PG) 28.3 MCHC (33.0 - 37.0 G/DL) 32.6 L RDW (11.5 - 14.5 %) 13.4 Plt Count (130 - 400 /CUMM) 361 MPV (7.4 - 10.4 FL) 8.7 Gran % (42.2 - 75.2 %) 71.7 Lymphocytes % (20.5 - 51.1 %) 15.8 L Monocytes % (1.7 - 9.3 %) 8.5 Eosinophils % (0 - 5 %) 3.0 Basophils % (0.0 - 2.0 %) 1.0 Absolute Granulocytes (1.4 - 6.5 /CUMM) 8.1 H Absolute Lymphocytes (1.2 - 3.4 /CUMM) 1.8 Absolute Monocytes (0.10 - 0.60 /CUMM) 1.0 H Absolute Eosinophils (0.0 - 0.7 /CUMM) 0.3 Absolute Basophils (0.0 - 0.2 /CUMM) 0.1 Imaging/Other Studies: US lower extremity 01/15/2018: 1. Right lower extremity: Occlusive thrombus from the distal femoral vein through the calf. 2. Left lower extremity: Deep vein thrombosis in the peroneal vein and posterior tibial vein. Chest CTA 01/15/2018: 1. Extensive bilateral pulmonary emboli. 2. Focal low-attenuation left lobe of liver near the gallbladder fossa likely from focal fatty change. This can be further assessed with dynamic MRI imaging. Assessment/Plan Assessment: Mr. Salter is a 67-year-old male with hypertension, hyperlipidemia, alcohol abuse with pancreatitis, vocal cord polyp and back pain due to cervical degenerative joint disease who presented to [facility] with new worsening dyspnea. On admission he was found to have bilateral pulmonary embolism and bilateral DVT. He has been relatively immobile recently due to a back injury. He has a back brace on previously. His DVT is concerning for provoked PE. He does have a family history with a brother with clotting issues. Due to the family history, he may need hypercoagulable workup as an outpatient. For now, he will discontinue on anticoagulation as workup primary team. He will need his age-appropriate health screening including colonoscopy. Recommendations: Bilateral pulmonary emboli with bilateral lower extremity DVT: - hypercoagulable workup as outpatient - continue anticoagulation and transition to oral anticoagulant as per primary team - obtain echocardiogram - age-appropriate health screening recommendation - plan for at least 6 months of anticoagulation Problem List: 1. Pulmonary emboli 2. DVT (deep venous thrombosis) Other Findings/Comments: Please call [phone] with any questions or concerns. Consult Acknowledgment - Thank you for your consult request.
[2018-01-16 14:33] VITALS: BP 156/84
[2018-01-16 16:23] LABS: PTT 53 SEC (25-37)
--- NOTE | 2018-01-16 17:29 | Cons- Vascular Surgery ---
General Information and HPI Consulting Request Date of Consult: 01/16/18 Requested By: Cheko CORTES,Debbie Reason for Consult: DVT, PE Source of Information: patient History of Present Illness: This is a 67 year-old male with a history of hypertension, hyperlipidemia, alcohol abuse with pancreatitis, vocal cord polyp and chronic back pain who was admitted to medicine yesterday with a one week history of worsening dyspnea, found on imaging to have extensive bilateral pulmonary emboli and DVT. He states he's been having worsening back pain and saw his Orthopedic surgeon, Dr. Bullock who recommended a back brace for osteoarthritis back in November. He states he is realtively active in his community and denies any trauma, recent travel or hypercoaguable problems. He denies ever having a colonoscopy. Currently, he denies any chest pain, shortness of breath or dyspnea. Allergies/Medications Allergies: Coded Allergies: No Known Allergies (09/13/17) Home Med List: Amlodipine Besylate 5 MG TABLET 1 TAB PO DAILY BP (Reported) Losartan Potassium 100 MG TABLET 1 TAB PO DAILY BP (Reported) Meloxicam 7.5 MG TABLET 1 TAB PO DAILY inflammation pain (Reported) Current Medications: Current Medications Sig/Natalee Start time Last Medication Dose Route Stop Time Status Admin Acetaminophen 650 MG Q6P PRN 01/15 2100 AC PO Heparin Sodium 4,200 UNIT ONCE ONE 01/16 1700 DC 01/16 (Porcine) IV 01/16 1701 1655 Heparin Sodium 10,000 UNIT .STK-MED ONE 01/16 0133 DC (Porcine) IV 01/16 0134 Heparin Sodium 7,995 UNIT ONCE ONE 01/16 0130 DC 01/16 (Porcine) IV 01/16 0131 0130 Heparin Sodium 25,000 UNIT Q24H 01/15 2100 AC 01/16 (Porcine) IV 1109 Sodium Chloride 500 ML Ibuprofen 600 MG Q6P PRN 01/15 2100 AC 01/16 PO 0306 Melatonin 5 MG AT BEDTIME 01/16 2345 AC PO Morphine Sulfate 2 MG Q4P PRN 01/15 2100 AC 01/15 IV 2155 Past History Medical History Blood Transfusion Hx: No Neurological: NONE EENT: NONE Cardiovascular: hypertension, hyperlipidemia Respiratory: NONE Gastrointestinal: pancreatitis Hepatic: NONE Renal: NONE Musculoskeletal: osteoarthritis, rotator cuff injury Psychiatric: NONE Endocrine: NONE Blood Disorders: NONE Cancer(s): NONE 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 Home Who Do You Live With? spouse Services at Home: None Primary Language: Luxembourgish Smoking Status: Former Smoker (quit 30 years ago. 3 pack yrs) ETOH Use: occasional use Illicit Drug Use: marijuana (occasionally for insomina) Functional Ability Ambulation: independent Employment History Employment: Retired Exam & Diagnostic Data Vital Signs and I&O Vital Signs Date Time Temp Pulse Resp B/P B/P Pulse O2 O2 Flow FiO2 Mean Ox Delivery Rate 01/16 1433 98.8 90 20 156/84 96 Room Air 01/16 0800 Nasal 2.0L Cannula 01/16 06 98.5 93 20 130/76 100 01/15 2236 98.1 107 14 134/82 97 01/15 2157 Nasal 2.0L Cannula 01/15 2130 Nasal 2.0L Cannula 01/153 98.7 117 16 150/84 92 01/15 1946 98.6 105 18 110/74 97 Nasal 2.0L Cannula Intake & Output 01/16 1600 01/16 0800 01/16 0000 01/15 1600 01/15 0800 01/15 0000 Intake Total 1214.5 600 26 0 Output Total 250 Balance 1214.5 350 26 0 Intake, IV 254.5 240 26 Intake, Oral 960 360 0 Output, Urine 250 Patient 235 lb Weight Weight Reported by Patient Reported by Patient Measurement Method Physical Exam: General: Resting comfortably in NAD Cardiac: S1S2 noted, RRR Lungs: CTAB Abdomen: Soft, nontender Extremities: No edema or swelling B/L, firm to palpation on the posterior right calf Neuro: Alert and oriented x3 Skin: Warm and nondiaphoretic Last 24 Hours of Labs: Laboratory Tests 01/16 01/16 01/16 1540 0630 0550 Coagulation APTT (25 - 37 SEC) 53 H 100 H Toxicology Urine Opiates Screen (>2000 NG/ML) 3825.00 H Methadone Screen (>300 NG/ML) < 40 Barbiturate Screen (>200 NG/ML) < 60 Ur Phencyclidine Scrn (>25 NG/ML) < 6.00 Amphetamines Screen (>1000 NG/ML) < 100 U Benzodiazepines Scrn (>200 NG/ML) < 85 Urine Cocaine Screen (>300 NG/ML) < 50 Urine Cannabis Screen (>50 NG/ML) > 80.00 H Urines Urine Color (YEL,AMB,STR) YEL Urine Clarity (CLEAR) CLEAR Urine pH (5.0 - 8.0) 6.0 Ur Specific [place] (1.001 - 1.035) 1.020 Urine Protein (NEG,<30 MG/DL) TRACE H Urine Ketones (NEG) TRACE H Urine Nitrite (NEG) NEG Urine Bilirubin (NEG) NEG Urine Urobilinogen (0.1 - 1.0 EU/dl) 0.2 Ur Leukocyte Esterase (NEG) NEG Ur Microscopic SEDIMENT EXAMINED Urine WBC (0 - 2 /HPF) RARE Urine Mucus (FEW,NONE) MOD H Urine Hemoglobin (NEG) NEG Urine Glucose (N MG/DL) 100 H 01/16 01/15 01/15 0300 2350 2100 Chemistry Sodium (137 - 145 mmol/L) 141 Potassium (3.5 - 5.1 mmol/L) 4.2 Chloride (98 - 107 mmol/L) 100 Carbon Dioxide (22 - 30 mmol/L) 25 Anion Gap (5 - 16) 15 BUN (9 - 20 mg/dL) 16 Creatinine (0.7 - 1.2 mg/dL) 0.9 Estimated GFR (>60 ml/min) > 60 BUN/Creatinine Ratio (7 - 25 %) 17.8 Troponin I (<0.11 ng/ml) 0.35 *H 0.49 *H Triglycerides (<150 mg/dL) 60 Cholesterol (< 200 MG/DL) 176 LDL Cholesterol, Calc (65 - 129 mg/dL) 106 HDL Cholesterol (40 - 60 mg/dL) 58 Cholesterol/HDL Ratio (0.00 - 4.88 %) 3 Coagulation APTT (25 - 37 SEC) Cancelled 36 Hematology CBC w Diff NO MAN DIFF REQ WBC (4.8 - 10.8 /CUMM) 11.4 H RBC (4.70 - 6.10 /CUMM) 3.81 L Hgb (14.0 - 18.0 G/DL) 11.0 L Hct (42 - 52 %) 33.0 L MCV (80.0 - 94.0 FL) 86.8 MCH (27.0 - 31.0 PG) 28.8 MCHC (33.0 - 37.0 G/DL) 33.2 RDW (11.5 - 14.5 %) 13.2 Plt Count (130 - 400 /CUMM) 380 MPV (7.4 - 10.4 FL) 8.7 Gran % (42.2 - 75.2 %) 93.0 H Lymphocytes % (20.5 - 51.1 %) 5.3 L Monocytes % (1.7 - 9.3 %) 1.4 L Eosinophils % (0 - 5 %) 0.2 Basophils % (0.0 - 2.0 %) 0.1 Absolute Granulocytes (1.4 - 6.5 /CUMM) 10.6 H Absolute Lymphocytes (1.2 - 3.4 /CUMM) 0.6 L Absolute Monocytes (0.10 - 0.60 /CUMM) 0.2 Absolute Eosinophils (0.0 - 0.7 /CUMM) 0 Absolute Basophils (0.0 - 0.2 /CUMM) 0 Imaging Results: SERVICE DATE: 01/15/18 EXAM TYPE: RAD - XRY-PORTABLE CHEST XRAY EXAMINATION: XR PORTABLE CHEST CLINICAL INFORMATION: Dyspnea, evaluate for pneumonia or CHF. COMPARISON: Chest x-ray dated 01/19/2015. TECHNIQUE: Portable frontal view of the chest was obtained. FINDINGS: No significant abnormality is noted involving the heart, lungs, mediastinum, bony thorax or soft tissues. IMPRESSION: No acute cardiopulmonary findings, no significant interval change compared to the previous study. SERVICE DATE: 01/15/18 EXAM TYPE: CAT - CTA CHEST-PULMONARY EMBOLISM EXAMINATION: CT ANGIOGRAM OF THE CHEST WITH AND WITHOUT CONTRAST (CT PULMONARY ANGIOGRAM FOR PE) CLINICAL INFORMATION: Dyspnea. COMPARISON: Portable chest 01/15/2018. CT of abdomen and pelvis 01/19/2016, 11/26/2014. TECHNIQUE: Prior to contrast administration, noncontrast localization images were obtained. Subsequently, multidetector volumetric imaging was performed from the thoracic inlet to below the diaphragms following the administration of 95 mL Optiray 350 intravenous contrast. No contrast reaction reported. Sagittal, coronal, and MIP oblique sagittal reformatted images were obtained on the CT workstation, uploaded to PACS, and reviewed. DLP: 532.45 mGy-cm FINDINGS: QUALITY OF STUDY/CONTRAST BOLUS: Satisfactory. PULMONARY ARTERIES: There is extensive bilateral pulmonary emboli. Multiple emboli seen in both the right and left lungs in the secondary and tertiary branches of the vessels involving all lobes. THORACIC AORTA: No aneurysm or dissection. Scattered vascular wall calcification of the aorta at the aortic arch. LUNG: No focal consolidation, nodules or masses. PLEURA: No pleural effusion or pneumothorax. MEDIASTINUM: Normal heart size. No pericardial effusion. No hilar or mediastinal lymphadenopathy. No evidence of septal bowing or right heart strain. CHEST WALL/AXILLA: No axillary or internal mammary lymphadenopathy. OSSEOUS STRUCTURES: Degenerative spondylosis of spine with multilevel endplate spurring of the vertebrae. UPPER ABDOMEN: Focal low attenuation in the left lobe of liver adjacent to the gallbladder fossa and around a geographic area measuring about 5 cm. This is likely focal fatty infiltration. Not seen on the CAT scan of 01/19/2015. This can be further assessed with MRI. No reflux of contrast into the hepatic veins to suggest elevated right heart pressures. IMPRESSION: 1. Extensive bilateral pulmonary emboli. 2. Focal low-attenuation left lobe of liver near the gallbladder fossa likely from focal fatty change. This can be further assessed with dynamic MRI imaging. VTE: Negative. SERVICE DATE: 01/15/18 EXAM TYPE: US - US-EXT BILAT VENOUS DOPPLER EXAMINATION: US TRIPLEX OF LOWER EXTREMITIES, BILATERAL CLINICAL INFORMATION: Pulmonary embolism. 1 heparin. COMPARISON: None TECHNIQUE: Color-flow triplex imaging with spectral analysis and compression Doppler were performed on the lower extremities. FINDINGS: There is bilateral lower extremity deep vein thrombosis. Right lower leg: Thrombus present from the distal femoral vein through the popliteal vein into the calf involving the posterior tibial vein and peroneal veins. Left lower leg: Deep vein thrombosis is seen in the calf involving one of the paired posterior tibial veins and both of the peroneal veins. The veins more proximal, from the popliteal vein through the groin, is normal. There is no Morris's cyst. IMPRESSION: 1. Right lower extremity: Occlusive thrombus from the distal femoral vein through the calf. 2. Left lower extremity: Deep vein thrombosis in the peroneal vein and posterior tibial vein. Assessment/Plan Assessment/Plan This is a 67 year-old male with a history of hypertension, hyperlipidemia, alcohol abuse with pancreatitis, vocal cord polyp and chronic back pain who was admitted to medicine yesterday with a one week history of worsening dyspnea, found on imaging to have extensive bilateral pulmonary emboli and bilateral DVT, with no evidence of right-sided heart strain on echo. He is currently being transitioned off a heparin drip. No surgical intervention is warrented at this time Transition to oral anticoagulation per primary team Will likely require hypercoagulable workup as outpatient Follow up with Dr. Garcia in [address] Garcia who is in agreement Consult Acknowledgment - Thank you for your consult request.
--- NOTE | 2018-01-16 20:37 | Cons- Cardiology ---
General Information and HPI Consulting Request Date of Consult: 01/16/18 Requested By: Cheko CORTES,Debbie History of Present Illness: Fermin is a 67 year old male with history of hypertension, dyslipidemia and alcohol abuse with pancreatitis. He presented to [facility] for evaluation of shortness of breath which began acutely and became progressively worse until he could only walk a few steps. This symptom was accompanied by lightheadedness and palpitations. He denies any chest discomfort or pleuritic discomfort. He did mention a right lower extremity cramp beginning a week ago without any associated swelling. He denies any prolonged period of inactivity or LE trauma. It should be noted that this patient has had a 70 pound weight loss over the past 3 years. He thinks that he is eating less but it does not appear that he went on an active and purposeful diet. In the ER the patient was discovered to have multiple pulmonary emboli and positive cardiac enzymes. Allergies/Medications Allergies: Coded Allergies: No Known Allergies (09/13/17) Home Med List: Amlodipine Besylate 5 MG TABLET 1 TAB PO DAILY BP (Reported) Losartan Potassium 100 MG TABLET 1 TAB PO DAILY BP (Reported) Meloxicam 7.5 MG TABLET 1 TAB PO DAILY inflammation pain (Reported) Review of Systems Review of Systems: A 12 point review of systems is unremarkable other than the above. Past History Travel History Traveled to [place] past 21 day No Medical History Blood Transfusion Hx: No Neurological: NONE EENT: NONE Cardiovascular: hypertension, hyperlipidemia Respiratory: NONE Gastrointestinal: pancreatitis Hepatic: NONE Renal: NONE Musculoskeletal: osteoarthritis, rotator cuff injury Psychiatric: NONE Endocrine: NONE Blood Disorders: NONE Cancer(s): NONE BODY REPAIRER/Reproductive: NONE Surgical History Surgical History: B/L rotator cuff repair Family History Relations & Conditions If Any: SISTER FH: colon cancer BROTHER FHx: congenital heart disease Psychosocial History Where Do You Live? Home Who Do You Live With? spouse Services at Home: None Primary Language: Colombian Smoking Status: Former Smoker (quit 30 years ago. 3 pack yrs) ETOH Use: occasional use Illicit Drug Use: marijuana (occasionally for insomina) Functional Ability Ambulation: independent Employment History Employment: Retired Exam & Diagnostic Data Vital Signs and I&O Vital Signs Date Time Temp Pulse Resp B/P B/P Pulse O2 O2 Flow FiO2 Mean Ox Delivery Rate 01/16 1433 98.8 90 20 156/84 96 Room Air 01/16 0800 Nasal 2.0L Cannula 01/16 0600 98.5 93 20 130/76 100 01/15 2236 98.1 107 14 134/82 97 01/15 2157 Nasal 2.0L Cannula 01/15 2130 Nasal 2.0L Cannula 01/15 2043 98.7 117 16 150/84 92 Intake & Output 01/16 1600 01/16 0800 01/16 0000 01/15 1600 01/15 0800 01/15 0000 Intake Total 1214.5 600 26 0 Output Total 250 Balance 1214.5 350 26 0 Intake, IV 254.5 240 26 Intake, Oral 960 360 0 Output, Urine 250 Patient 235 lb Weight Weight Reported by Patient Reported by Patient Measurement Method Physical Exam: General: WD/overweight male in NAD; alert and oriented x 3 HEENT: NC/AT, PERRL, EOMI Neck: no JVD, no carotid bruit Heart: RRR w/o murmur Lungs: clear bilaterally Abdomen: soft, NT, +ve bowel sounds Extremities: no edema Assessment/Plan Assessment/Plan * This patient has multiple pulmonary emboli along with bilateral DVT's. This alone is enough to elicit the troponin rise in this patient although it is reasonable to pursue a routine stress test to assess for myocardial ischemia as an outpatient when more stable considering his risk factors. I would also obtain an echocardiogram today. * This patient will need to be anticoagulated. I am suspicious of a hypercoagulable state due to a malignancy given his tremendous weight loss. His liver lesion is hypoattenuating but is still suspicious for an anatomical abnormality. A hypercoagulable workup should be pursued. If he does have a chronic hypercoagulable state then consideration should be given to an IVC filter. Consult Acknowledgment - Thank you for your consult request.
[2018-01-16 21:58] VITALS: BP 148/78
[2018-01-16 23:03] LABS: PTT 49 SEC (25-37)
[2018-01-17 06:30] VITALS: BP 126/68
--- NOTE | 2018-01-17 07:16 | PN- Housestaff ---
Subjective Follow-up For: Bilateral lower extremity DVT Bilateral PE Tele-Events Since Last Visit: Normal sinus rhythm Heart rate 74-97 Subjective: Patient states he was able to sleep last night after getting the Ambien. Complaining of back pain which was precipitated while performing the echo last night. Denies any chest pain, shortness of breath, palpitations, or lightheadedness/dizziness. Review of Systems Constitutional: Reports: no symptoms. EENTM: Reports: no symptoms. Cardiovascular: Reports: no symptoms. Respiratory: Reports: no symptoms. Gastrointestinal: Reports: no symptoms. Genitourinary: Reports: no symptoms. Musculoskeletal: Reports: back pain. Skin: Reports: no symptoms. Neurological/Psychological: Reports: no symptoms. Hematologic/Endocrine: Reports: no symptoms. Immunologic/Allergic: Reports: no symptoms. Objective Last 24 Hrs of Vital Signs/I&O Vital Signs Date Time Temp Pulse Resp B/P B/P Pulse O2 O2 Flow FiO2 Mean Ox Delivery Rate 01/17 1246 128/72 01/17 1245 128/72 01/17 0630 98.0 90 18 126/68 96 01/17 0000 Room Air 01/16 2158 98.3 95 16 148/78 95 01/16 1433 98.8 90 20 156/84 96 Room Air Intake & Output 01/17 1600 01/17 0800 01/17 0000 Intake Total 440 783.1 Output Total Balance 440 783.1 Intake, IV 240 123.1 Intake, Oral 200 660 Physical Exam General Appearance: Alert, Oriented X3, Cooperative Skin: No Rashes, No Breakdown Cardiovascular: Regular Rate, Normal S1, Normal S2 Lungs: Clear to Auscultation, Normal Air Movement Abdomen: Normal Bowel Sounds, Soft, No Tenderness Extremities: No Clubbing, No Cyanosis, No Edema Current Medications: Current Medications Sig/Natalee Start time Last Medication Dose Route Stop Time Status Admin Acetaminophen 650 MG Q6P PRN 01/15 2100 AC PO Amlodipine Besylate 5 MG DAILY 01/17 1105 AC 01/17 PO 1246 Apixaban 5 MG BID 01/17 1000 AC 01/17 PO 1024 Diclofenac Sodium 1 RAFIA 4 TIMES/DAY PRN 01/17 1315 AC TOP Heparin Sodium 5,000 UNIT .STK-MED ONE 01/16 2359 DC (Porcine) IV 01/17 0000 Heparin Sodium 4,264 UNIT ONCE ONE 01/16 2245 DC 01/16 (Porcine) IV 01/16 2246 2345 Heparin Sodium 4,264 UNIT ONCE ONE 01/16 2045 CAN (Porcine) IV 01/17 0200 Heparin Sodium 4,200 UNIT ONCE ONE 01/16 1700 DC 01/16 (Porcine) IV 01/16 1701 1655 Heparin Sodium 25,000 UNIT Q24H 01/15 2100 DC 01/17 (Porcine) IV 0409 Sodium Chloride 500 ML Ibuprofen 600 MG Q6P PRN 01/15 2100 DC 01/16 PO 1855 Losartan Potassium 100 MG DAILY 01/17 1105 AC 01/17 PO 1245 Melatonin 5 MG AT BEDTIME 01/16 2345 DC 01/16 PO 2221 Morphine Sulfate 2 MG Q4P PRN 01/15 2100 AC 01/16 IV 2018 Zolpidem Tartrate 5 MG AT BEDTIME 01/16 220 AC 01/16 PO 222 Last 24 Hrs of Lab/Marlon Results Last 24 Hrs of Labs/Mics: Laboratory Tests 01/17/18 0645: Total PSA 0.56 01/17/18 0645: Alpha Fetoprotein Pending, Carcinoembryonic Ag Pending, APTT 59 H, CBC w Diff NO MAN DIFF REQ, RBC 3.33 L, MCV 86.9, MCH 29.0, MCHC 33.3, RDW 13.3, MPV 8.6, Gran % 74.4, Lymphocytes % 16.9 L, Monocytes % 6.1, Eosinophils % 1.9, Basophils % 0.7, Absolute Granulocytes 9.1 H, Absolute Lymphocytes 2.1, Absolute Monocytes 0.7 H, Absolute Eosinophils 0.2, Absolute Basophils 0.1 01/16/18 2210: APTT 49 H 01/16/18 1540: APTT 53 H Assessment/Plan Assessment: Patient is a 67-year-old man with a past medical history of hypertension, hyperlipidemia, alcohol abuse with pancreatitis, vocal cord polyp and back pain due to cervical degenerative joint disease with recent aggravation in November ( on a back brace for symptomatic relief) presents with shortness of breath and right leg pain. Problem list; 1. Bilateral lower extremity DVT 2. Bilateral PE 3. History of hypertension, hyperlipidemia, pancreatitis and back pain due to DJD - Will change to oral anticoagulation (Eliquis) today. - Patient saturating above 90s on room air. Was weaned off oxygen yesterday evening. - Appreciate Haem/Onc recommendations. - Appreciate vascular surgery consult; - Echocardiogram shows ejection fraction > 55% with no regional wall motion abnormalities. Diastolic filling pattern is consistent with impaired LV relaxation. - Focal low attenuation in the left lobe of liver was found on CAT scan, we will do an abdominal ultrasound to look rule out any liver pathology. Patient might need an MRI as an outpatient for further evaluation. Also will need a colonoscopy as an outpatient. - Continue home medications. DVT prophylaxis; on IV heparin Patient is full code Problem List: 1. DVT (deep venous thrombosis) 2. Pulmonary emboli Pain Ratin Pain Location: Back Pain Goal: Remain pain free Pain Plan: PAin [facility] Tomorrow's Labs & Rationales: None
--- NOTE | 2018-01-17 07:50 | PN- Hematology ---
Subjective Subjective: He feels well. He denies any new symptoms. Breathing is stable. Review of Systems Constitutional: Denies: chills, fever, weakness. Cardiovascular: Denies: chest pain. Respiratory: Denies: short of breath. Gastrointestinal: Denies: abdominal pain. Genitourinary: Denies: dysuria. Musculoskeletal: Reports: back pain. Neurological/Psychological: Denies: anxiety, confusion. Hematologic/Endocrine: Denies: bruising, bleeding. All Other Systems: Reviewed and Negative Objective Vital Signs and I&Os Vital Signs Date Time Temp Pulse Resp B/P B/P Pulse O2 O2 Flow FiO2 Mean Ox Delivery Rate 01/17 0000 Room Air 01/16 2158 98.3 95 16 148/78 95 01/16 1433 98.8 90 20 156/84 96 Room Air 01/16 0800 Nasal 2.0L Cannula Intake & Output 01/17 0800 01/17 0000 01/16 1600 01/16 0800 01/16 0000 01/15 1600 Intake Total 440 783.1 1214.5 600 26 0 Output Total 250 Balance 440 783.1 1214.5 350 26 0 Intake, IV 240 123.1 254.5 240 26 Intake, Oral 200 660 960 360 0 Output, Urine 250 Patient 106.594 kg Weight Weight Reported by Patient Reported by Patient Measurement Method Physical Exam: General Appearance: well developed/nourished, no apparent distress, alert, awake , comfortable Head: atraumatic, normal appearance Respiratory: normal breath sounds, chest non-tender, no respiratory distress Cardiovascular: regular rate/rhythm Gastrointestinal: normal bowel sounds, soft, non-tender Extremities: normal inspection, no edema Neurologic/Psych: awake, alert, oriented x 3 Current Medications: Current Medications Sig/Natalee Start time Last Medication Dose Route Stop Time Status Admin Acetaminophen 650 MG Q6P PRN 01/15 2100 AC PO Heparin Sodium 4,264 UNIT ONCE ONE 01/16 2245 DC 01/16 (Porcine) IV 01/16 224 2345 Heparin Sodium 4,264 UNIT ONCE ONE 01/16 2045 CAN (Porcine) IV 01/17 0200 Heparin Sodium 4,200 UNIT ONCE ONE 01/16 1700 DC 01/16 (Porcine) IV 01/16 1701 1655 Heparin Sodium 25,000 UNIT Q24H 01/15 2100 AC 01/17 (Porcine) IV 0409 Sodium Chloride 500 ML Ibuprofen 600 MG Q6P PRN 01/15 2100 AC 01/16 PO 1855 Melatonin 5 MG AT BEDTIME 01/16 2345 DC 01/16 PO 2221 Morphine Sulfate 2 MG Q4P PRN 01/15 2100 AC 01/16 IV 2018 Zolpidem Tartrate 5 MG AT BEDTIME 01/16 2200 AC 01/16 PO 2221 Results Last 24 Hours of Lab Results: Laboratory Tests 01/17 01/17 01/16 01/16 0645 0645 2210 1540 Chemistry Alpha Fetoprotein Pending Carcinoembryonic Ag Pending Total PSA Pending Coagulation APTT (25 - 37 SEC) Pending 49 H 53 H Hematology CBC w Diff Pending WBC Pending RBC Pending Hgb Pending Hct Pending MCV Pending MCH Pending MCHC Pending RDW Pending Plt Count Pending MPV Pending Assessment/Plan Hematology Assessment/Recommendations: Mr. Salter is a 67-year-old male with hypertension, hyperlipidemia, alcohol abuse with pancreatitis, vocal cord polyp and back pain due to cervical degenerative joint disease who presented to [facility] with new worsening dyspnea. On admission he was found to have bilateral pulmonary embolism and bilateral DVT. He has been relatively immobile recently due to a back injury. He has a back brace on previously. His DVT is concerning for provoked PE. He does have a family history with a brother with clotting issues. Due to the family history, he may benefit from hypercoagulable workup as an outpatient. He will be on anticoagulation for at least 6 months. IV heparin will be transitioned to oral anticoagulant. He will need his age-appropriate health screening including colonoscopy. Liver finding is nonspecific and concerning for infiltrate. It was recommended to be evaluated with MRI. Bilateral pulmonary emboli with bilateral lower extremity DVT: - hypercoagulable workup as outpatient - transition to oral anticoagulant as per primary team - obtain echocardiogram - age-appropriate health screening recommendation - plan for at least 6 months of anticoagulation Liver abnormality: - may be work up with MRI Please call [phone] with any questions or concerns. Problem List: 1. DVT (deep venous thrombosis) 2. Liver lesion 3. Pulmonary emboli
--- NOTE | 2018-01-17 08:16 | ECHOCARDIOGRAM REPORT ---
CHARLINE SHAFER Age: 67 : 1950 Gender: M Exam Date: 01/16/2018 15:51 Exam Location: 1 [address] Ht (in): 74 Wt (lb): 235 BSA: 2.38 BP: 130 / 76 Ordering Physician: Suki Torres MD Referring Physician: Ramírez Mckee MD, PhD Technologist: Stephanie Simmons [facility] Room Number: [id number] Indications: ACUTE PULMONARY EMBOLISM Rhythm: Technical Quality: good FINDINGS Left Ventricle Normal left ventricular size with mild left ventricular hypertrophy. Normal systolic function with no obvious regional wall motion abnormalities. Diastolic filling pattern is consistent with impaired LV relaxation. The ejection fraction is visually estimated at 55%. Right Ventricle The right ventricle is normal in size and function. Right Atrium The right atrium is normal in size. Left Atrium The left atrium is mildly enlarged. The interatrial septum is intact. Mitral Valve The mitral valve is normal in structure and function. There is mild mitral regurgitation. Aortic Valve Structurally normal aortic valve without significant sclerosis or stenosis. There is no aortic regurgitation. Tricuspid Valve The tricuspid valve is normal in structure and function. There is trace to mild tricuspid regurgitation. Pulmonary artery systolic pressure is normal. Pulmonic Valve Structurally normal pulmonic valve. There is no pulmonic regurgitation. Pericardium Normal pericardium without effusion. No pleural effusion. Great Vessels Normal aortic root dimension. The aortic arch and great vessels are well seen and are normal. CONCLUSIONS 1. Normal EF of 55% with impaired LV relaxation. 2. Mild left ventricular hypertrophy. 3. Mild left atrial enlargement. 4. Mild mitral regurgitation. 5. Trace to mild tricuspid regurgitation. 6. Normal pulmonary pressures. Ramírez Mckee M.D. (Electronically Signed) Final Date: 17 January 2018 08:15 MEASUREMENTS (Male / Female) Normal Values 2D ECHO LV Diastolic Diameter PLAX 5.2 cm 4.2 - 5.9 / 3.9 - 5.3 cm LV Systolic Diameter PLAX 3.2 cm 2.1 - 4.0 cm LV Fractional Shortening PLAX 38.5 % 25 - 46 % LV Ejection Fraction 2D Teich 68.4 % IVS Diastolic Thickness 1.3 cm LVPW Diastolic Thickness 1.2 cm LV Relative Wall Thickness 0.5 RV Internal Dim ED PLAX 3.4 cm 1.9 - 3.8 cm LVOT Diameter 2.4 cm Aortic Root Diameter 3.5 cm LA Systolic Diameter LX 4.4 cm 3.0 - 4.0 / 2.7 - 3.8 cm Ascending Aorta Diameter 3.5 cm DOPPLER AV Peak Velocity 150.0 cm/s AV Peak Gradient 9.0 mmHg AV Mean Velocity 101.0 cm/s AV Mean Gradient 5.0 mmHg AV Velocity Time Integral 29.1 cm LVOT Peak Velocity 120.0 cm/s LVOT Peak Gradient 5.8 mmHg LVOT Mean Velocity 76.9 cm/s LVOT Mean Gradient 3.0 mmHg LVOT Velocity Time Integral 23.7 cm LVOT Stroke Volume 107.2 cm AV Area Cont Eq vti 3.7 cm AV Area Cont Eq pk 3.6 cm MV Peak Velocity 127.0 cm/s MV Peak Gradient 6.5 mmHg MV Mean Velocity 75.0 cm/s MV Mean Gradient 3.0 mmHg Mitral E Point Velocity 75.5 cm/s Mitral A Point Velocity 106.0 cm/s Mitral E to A Ratio 0.7 MV PHT Velocity 104.0 cm/s MV Deceleration Tillman 319.0 cm/s MV Pressure Half Time 97.8 ms MV Area PHT 2.2 cm MV Deceleration Time 277.0 ms TR Peak Velocity 247.0 cm/s TR Peak Gradient 24.4 mmHg Right Atrial Pressure 5.0 mmHg Pulmonary Artery Systolic Pressu 29.4 mmHg Right Ventricular Systolic Press 29.4 mmHg PV Peak Velocity 84.1 cm/s PV Peak Gradient 2.8 mmHg PV Mean Velocity 56.2 cm/s PV Mean Gradient 1.0 mmHg PV Velocity Time Integral 17.7 cm LV E' Lateral Velocity 11.1 cm/s Mitral E to LV E' Lateral Ratio 6.8 LV E' Septal Velocity 7.5 cm/s Mitral E to LV E' Septal Ratio 10.0
[2018-01-17 08:17] LABS: PTT 59 SEC (25-37)
[2018-01-17 08:19] LABS: ABSOLUTE BASOPHIL COUNT 0.1 /CUMM (0.0-0.2); ABSOLUTE EOSINOPHIL COUNT 0.2 /CUMM (0.0-0.7); ABSOLUTE GRANULOCYTE CT 9.1 /CUMM (1.4-6.5); ABSOLUTE LYMPH COUNT 2.1 /CUMM (1.2-3.4); ABSOLUTE MONOCYTE COUNT 0.7 /CUMM (0.10-0.60); BASOPHIL % 0.7 % (0.0-2.0); EOSINOPHIL % 1.9 % (0-5); GRANULOCYTE % 74.4 % (42.2-75.2); HEMATOCRIT 28.9 % (42-52); MEAN CORPUSCULAR HGB CONC 33.3 G/DL (33.0-37.0); MEAN CORPUSCULAR VOLUME 86.9 FL (80.0-94.0); MEAN PLATELET VOLUME 8.6 FL (7.4-10.4); PLATELET COUNT 373 /CUMM (130-400); RBC DISTRIBUTION WIDTH 13.3 % (11.5-14.5); RED BLOOD CELL CT 3.33 /CUMM (4.70-6.10); WHITE BLOOD CELL COUNT 12.2 /CUMM (4.8-10.8)
--- NOTE | 2018-01-17 11:57 | PN- Att Addend ---
Attending Addendum Attending Brief Note Attending MD Statement: examined this patient, discuss w/resident/PA/MONOTYPE CASTER, agreed w/resident/PA/MONOTYPE CASTER, reviewed EMR data (avail) Attending Assessment/Plan: Patient seen and examined. Plan of care discussed with the medical team and the patient. Available lab work and radiology test reports were reviewed. Patient does not report any difficulty breathing. Overnight he was slightly tachycardic but afebrile. Chest exam is clear. Legs show no edema. Assessment plan Unprovoked DVT bilateral with pulmonary embolism Rule out metastatic malignancy and liver liver Note that patient had not had any colonoscopy Plan Obtain ultrasound the liver to further delineate the hypoattenuated lesion in the left lobe; patient may need their outpatient MRI of liver Follow-up on CEA and PSA, alpha-fetoprotein Patient should undergo colonoscopy in near future; he is agreeable to colonoscopy in the future Will plan to switch to oral eliquis today and then stop IV heparin in 2-4 hours Patient likely can be discharged home in the afternoon with close follow-up with primary care physician to workup underlying malignancy; patient was informed about our concerns about underlying cancer. He is aware that he may need MRI of liver as well as colonoscopy as outpatient.
[2018-01-17] MEDS ORDERED: ELIQUIS5 M1 PO (13:49)
--- NOTE | 2018-01-17 13:55 | Patient Discharge Instructions ---
Discharge Instructions General Discharge Information You were seen/treated for: Bilateral lower extremity DVT Bilateral pulmonary embolism Watch for these problems: Please return to the ER in case of any chest pain, shortness of breath, palpitations, lightheadedness/dizziness or lower extremity pain/swelling. Special Instructions: Please follow-up with your PCP within a week after discharge. You may need MRI of liver( for the suspicious lesions seen on Ct scan and Ultrasound) as well as colonoscopy as outpatient. Please follow-up with the full stack developer/oncologist within a week after discharge. Please follow-up with the personnel generalist manager within a week after discharge. Please follow-up with the vascular surgeon within 1 month after discharge. Diet Continue normal diet: Yes Activity Full Activity/No Limits: Yes Acute Coronary Syndrome Inclusion Criteria At DC or during hospital stay patient has or had the following: ACS DIAGNOSIS No Discharge Core Measures Meds if any: Prescribed or Continued at Discharge Meds if any: NOT Prescribed or Continued at Discharge Congestive Heart Failure Inclusion Criteria At DC or during hospital stay patient has or had the following: CHF DIAGNOSIS No Discharge Core Measures Meds if any: Prescribed or Continued at Discharge Meds if any: NOT Prescribed or Continued at Discharge Cerebrovascular accident Inclusion Criteria At DC or during hospital stay patient has or had the following: CVA/TIA Diagnosis No Discharge Core Measures Meds if any: Prescribed or Continued at Discharge Meds if any: NOT Prescribed or Continued at Discharge Venous thromboembolism Inclusion Criteria VTE Diagnosis Yes VTE Type Pulmonary Embolism VTE Confirmed by (Test) CT CHEST ANGIOGRAM Discharge Core Measures - Per Current guidelines, there needs to be overlap - treatment for the first 5 days of Warfarin therapy. - If discharged on Warfarin prior to 5 days of - overlap therapy, the patient will need to be - assessed for post discharge needs including - *Post discharge parental anticoagulation - *Warfarin and/or parental anticoagulation education - *Follow up date to check INR post discharge At least 5 days overlap therapy as Inpatient Yes Meds if any: Prescribed or Continued at Discharge Note: Overlap Therapy is Warfarin and Anticoagulant Meds if any: NOT Prescribed or Continued at Discharge
[2018-01-17 14:51] VITALS: BP 146/82
--- NOTE | 2018-01-17 18:16 | PN- Cardiology ---
Subjective Subjective: * Patient is a bit worn-out without shortness of breath at rest. No chest pain. * sinus rhythm * Normal EF with normal RV size and pressures on echo. Objective Vital Signs and I&Os Vital Signs Date Time Temp Pulse Resp B/P B/P Pulse O2 O2 Flow FiO2 Mean Ox Delivery Rate 01/17 1451 97.7 86 18 146/82 98 Room Air 01/17 1246 128/72 01/17 1245 128/72 01/17 0630 98.0 90 18 126/68 96 01/17 0000 Room Air 01/16 2158 98.3 95 16 148/78 95 Intake & Output 01/17 1600 01/17 0800 01/17 0000 01/16 1600 01/16 0800 01/16 0000 Intake Total 240 440 783.1 1214.5 600 26 Output Total 250 Balance 240 440 783.1 1214.5 350 26 Intake, IV 40 240 123.1 254.5 240 26 Intake, Oral 200 200 660 960 360 Output, Urine 250 Weight Reported by Patient Measurement Method Physical Exam: General: WD/overweight male in NAD; alert and oriented x 3 HEENT: NC/AT, PERRL, EOMI Neck: no JVD, no carotid bruit Heart: RRR w/o murmur Lungs: clear bilaterally Abdomen: soft, NT, +ve bowel sounds Extremities: no edema Assessment/Plan Assessment/Plan * This patient has multiple pulmonary emboli along with bilateral DVT's. This alone is enough to elicit the troponin rise in this patient although it is reasonable to pursue a routine stress test to assess for myocardial ischemia as an outpatient when more stable considering his risk factors. Normal RV size and pressures on echocardiogram. * This patient will need to be anticoagulated. The initial dosing of Eliquis is 10mg BID. I am suspicious of a hypercoagulable state due to a malignancy given his tremendous weight loss. His liver lesion is hypoattenuating but is still suspicious for an anatomical abnormality. A hypercoagulable workup should be pursued. If he does have a chronic hypercoagulable state then consideration should be given to an IVC filter. Continue telemetry? Yes
--- NOTE | 2018-01-17 19:23 | ULTRASOUND REPORT ---
EXAMINATION: US ABDOMEN COMPLETE CLINICAL INFORMATION: Tachycardia. DVT. Focal liver lesion seen on CTA of chest.. COMPARISON: CTA of chest 01/15/2018 TECHNIQUE: Real-time imaging of the abdominal viscera. Color Doppler exam is used. FINDINGS: PANCREAS: Limited visibility due to bowel gas. ABDOMINAL AORTA: Proximal aorta is not visualized. Portion of the mid aorta is unremarkable. INFERIOR VENA CAVA: Visualized portions are normal. LIVER: There are 2 round focal hypoechoic lesions in the liver. Both are within the right lobe. The largest measures 4.9 x 4.2 x 5.9 cm. This correlates with a hypodense lesion seen on the CTA of the chest. The second measures 1.9 x 1.4 x 1.8 cm. There is no intrahepatic bile duct dilatation. There are lymph nodes in the epigastric area near the liver at the jessica hepatis measuring about 2 cm of size. GALLBLADDER: The gallbladder is nearly filled with hyperechoic material with multiple tiny echogenic foci. The small foci though do have some ring down artifact. May be tiny gallstones and/or echogenic sludge. The thickness of the gallbladder wall is borderline measuring 0.4 cm. There is no pericholecystic fluid. Negative ultrasound Sin's sign. The gallbladder is distended to a length of 10 cm. COMMON BILE DUCT: Normal in caliber measuring 0.2 cm in diameter. RIGHT KIDNEY: There is an anechoic cyst in the upper pole of the right kidney measuring 1.8 cm. No hydronephrosis. No renal calculi or focal parenchymal lesions. The kidney measures 11.9 cm in maximum dimension. LEFT KIDNEY: Normal. No hydronephrosis. No renal calculi or focal parenchymal lesions. The kidney measures 12.7 cm in maximum dimension. SPLEEN: Normal. The spleen measures 12.6 cm in maximum dimension. FREE FLUID: None. IMPRESSION: 1. 2 hypoechoic lesions in the liver. The largest correlates to the hypodense lesion seen on the CTA of the chest. This is suspicious for metastatic malignancy. Dynamic MRI would be helpful for further assessment. 2. Lymphadenopathy at the jessica hepatis. This also suggest metastatic disease. 3. Echogenic material nearly fills the gallbladder likely from tiny gallstones and echogenic sludge. Borderline gallbladder wall thickening but no pericholecystic fluid and negative ultrasound Sin's sign. The gallbladder however is distended to a length of 10 cm. 4. Cyst upper pole of right kidney. This critical result was discussed with Dr. Florez on 01/17/2018, 7:15 PM. and it was ascertained that the content and urgency of the report was understood at the time of direct communication.
[2018-01-17 21:51] VITALS: BP 142/80
[2018-01-18 06:48] VITALS: BP 130/80
--- NOTE | 2018-01-18 08:16 | PN- Housestaff ---
Casi CORTES,Meagan 01/18/18 0816: Subjective Follow-up For: Bilateral lower extremity DVT Bilateral unprovoked PE Tele-Events Since Last Visit: Normal sinus rhythm No overnight events noted Subjective: Patient sitting comfortably in bed, denies any active complaints. Abdominal Ultrasound findings and need for further workup including liver MRI, biopsy and colonoscopy as an outpatient discussed with the patient. Review of Systems Constitutional: Reports: no symptoms. EENTM: Reports: no symptoms. Cardiovascular: Reports: no symptoms. Respiratory: Reports: no symptoms. Gastrointestinal: Reports: no symptoms. Genitourinary: Reports: no symptoms. Musculoskeletal: Reports: no symptoms. Skin: Reports: no symptoms. Neurological/Psychological: Reports: no symptoms. Hematologic/Endocrine: Reports: no symptoms. Immunologic/Allergic: Reports: no symptoms. Objective Last 24 Hrs of Vital Signs/I&O Vital Signs Date Time Temp Pulse Resp B/P B/P Pulse O2 O2 Flow FiO2 Mean Ox Delivery Rate 01/18 0842 96 120/66 01/18 0842 96 120/66 01/18 0841 96 120/01/18 0800 Room Air 01/18 0648 98.1 82 20 130/80 96 Room Air 01/17 2151 98.2 86 16 142/80 94 Intake & Output 01/18 1600 01/18 0800 01/18 0000 Intake Total 350 310 Output Total Balance 350 310 Intake, IV 10 Intake, Oral 350 300 Physical Exam General Appearance: Alert, Oriented X3, Cooperative, No Acute Distress Skin: No Rashes, No Breakdown Cardiovascular: Regular Rate, Normal S1, Normal S2 Lungs: Clear to Auscultation, Normal Air Movement Abdomen: Normal Bowel Sounds, Soft, No Tenderness Extremities: No Clubbing, No Cyanosis, No Edema Current Medications: Current Medications Sig/Natalee Start time Last Medication Dose Route Stop Time Status Admin Acetaminophen 650 MG .STK-MED ONE 01/18 044 DC PO 01/18 044 Acetaminophen 650 MG .STK-MED ONE 01/18 044 DC PO 01/18 0447 Acetaminophen 650 MG Q6P PRN 01/15 2100 DCD PO Amlodipine Besylate 5 MG DAILY 01/17 1105 DCD 01/18 PO 0842 Apixaban 10 MG BID 01/18 1000 DCD 01/18 PO 0842 Apixaban 5 MG ONCE ONE 01/17 2045 DC 01/17 PO 01/17 Apixaban 5 MG BID 01/17 1000 DC 01/17 PO 2021 Diclofenac Sodium 1 RAFIA 4 TIMES/DAY PRN 01/17 1315 DCD TOP Losartan Potassium 100 MG DAILY 01/17 1105 DCD 01/18 PO 0842 Morphine Sulfate 2 MG Q4P PRN 01/15 2100 DCD 01/17 IV 1918 Zolpidem Tartrate 5 MG AT BEDTIME 01/16 2200 DCD 01/17 PO 2020 Assessment/Plan Assessment: Patient is a 67-year-old man with a past medical history of hypertension, hyperlipidemia, alcohol abuse with pancreatitis, vocal cord polyp and back pain due to cervical degenerative joint disease with recent aggravation in November ( on a back brace for symptomatic relief) presents with shortness of breath and right leg pain. Problem list; 1. Bilateral lower extremity DVT 2. Bilateral PE 3. History of hypertension, hyperlipidemia, pancreatitis and back pain due to DJD - Eliquis changed to Xarelto(patient's insurance has a higher co-pay for Eliquis ). We'll continue Xarelto 15 mg twice a day for 3 weeks and then changed to 20 mg daily for 3-6 months. - Abdominal ultrasound done yesterday shows 2 hypoechoic lesions in the liver and lymphadenopathy at the jessica hepatis which are suspicious for metastatic disease. Discussed with the patient that he will need further workup for the lesions and lymphadenopathy found on ultrasound and he will need to follow-up with his primary care physician and precision jig grinder for outpatient MRI, biopsy and colonoscopy. - Continue home medications. DVT prophylaxis; on Xarelto Patient is full code Problem List: 1. Pulmonary emboli 2. Liver lesion 3. DVT (deep venous thrombosis) Pain Ratin Pain Location: None Pain Goal: Remain pain free Pain Plan: Pain pathway Tomorrow's Labs & Rationales: None Shashank CORTES,Amir 01/18/18 1255: Attending MD Review Statement Attending Statement Attending MD Statement: examined this patient, discuss w/resident/PA/TUG MASTER, agreed w/resident/PA/TUG MASTER, reviewed EMR data (avail), discussed with nursing Attending Assessment/Plan: Pt was seen. Chart reviwed. Reprots doing well and wants to go home. Liver US findigns were d/w him. Pt wants to follow with GI and Onc as outpt. Cont current meds. Pt advised to f/u with his PCP and specialisty. Rest of the plan as per resident's note.
[2018-01-18 08:41] VITALS: BP 120/66
[2018-01-18 08:42] VITALS: BP 120/66
[2018-01-18] MEDS ORDERED: ELIQUIS5 M1 PO ×4 (11:48→11:55)
[2018-01-18] MEDS ORDERED: XARELTO15 M1 PO (12:40)
[2018-01-18] MEDS ORDERED: XARELTO20 M2 PO (12:40)
--- NOTE | 2018-01-18 16:18 | Discharge Summary ---
Visit Information Visit Dates Admission Date: 01/15/18 Discharge Date: 01/18/18 Hospital Course Course Attending Physician: Cheko CORTES,Debbie Primary Care Physician: Doroteo CORTES,Evan Payne Hospital Course: Patient is a 67-year-old man with a past medical history of hypertension, hyperlipidemia, alcohol abuse with pancreatitis, vocal cord polyp and back pain due to cervical degenerative joint disease with recent aggravation in November ( on a back brace for symptomatic relief) presents with shortness of breath and right leg pain. Patient was admitted to the telemetry floor and following issues were addressed; 1. Bilateral lower extremity DVT 2. Bilateral unprovoked PE 3. History of hypertension, hyperlipidemia, pancreatitis and back pain due to DJD Patient was started on IV heparin after he was found to have bilateral emboli on CT angiogram and bilateral lower extremity DVT. Vascular surgery was consulted who did not recommend any surgical intervention at the time. Haem/Onc was also called who suggested doing a hypercoagulable workup as an outpatient. Cardiology was consulted for elevated troponins which were likely secondary to demand ischemia. Heparin was later switched to Xarelto to continue anti- cooperation for 3-[address] chest also showed a hypoechoic lesion in the right lobe of the liver which was further evaluated with an abdominal ultrasound showing 2 hypoechoic lesions in the right lobe and lymphadenopathy near the jessica hepatis. Patient was advised to follow-up with his primary care physician and the electric distribution engineer as he will need further workup i.e, MRI and liver biopsy for the lesions found on ultrasound abdomen. Patient will also need a colonoscopy as an outpatient as he has never had one in the past. Rest of [facility] home medications were continued. Allergies: Coded Allergies: No Known Allergies (09/13/17) Significant Procedures: XRY-PORTABLE CHEST XRAY IMPRESSION: No acute cardiopulmonary findings, no significant interval change compared to the previous study. CTA CHEST-PULMONARY EMBOLISM IMPRESSION: 1. Extensive bilateral pulmonary emboli. 2. Focal low-attenuation left lobe of liver near the gallbladder fossa likely from focal fatty change. This can be further assessed with dynamic MRI imaging. VTE: Negative. US-EXT BILAT VENOUS DOPPLER IMPRESSION: 1. Right lower extremity: Occlusive thrombus from the distal femoral vein through the calf. 2. Left lower extremity: Deep vein thrombosis in the peroneal vein and posterior tibial vein. ECHOCARDIOGRAM CONCLUSIONS 1. Normal EF of 55% with impaired LV relaxation. 2. Mild left ventricular hypertrophy. 3. Mild left atrial enlargement. 4. Mild mitral regurgitation. 5. Trace to mild tricuspid regurgitation. 6. Normal pulmonary pressures. US ABDOMEN IMPRESSION: 1. 2 hypoechoic lesions in the liver. The largest correlates to the hypodense lesion seen on the CTA of the chest. This is suspicious for metastatic malignancy. Dynamic MRI would be helpful for further assessment. 2. Lymphadenopathy at the jessica hepatis. This also suggest metastatic disease. 3. Echogenic material nearly fills the gallbladder likely from tiny gallstones and echogenic sludge. Borderline gallbladder wall thickening but no pericholecystic fluid and negative ultrasound Sin's sign. The gallbladder however is distended to a length of 10 cm. 4. Cyst upper pole of right kidney. Disposition Summary Disposition Principal Diagnosis: Bilateral lower extremity DVT Additional Diagnosis: Bilateral unprovoked PE Discharge Disposition: home or self care Discharge Instructions General Discharge Information Code Status: Full Code Patient's Diet: Regular Patient's Activity: As tolerated Follow-Up Instructions/Appts: Please follow-up with your PCP within a week after discharge. You may need MRI of liver( for the suspicious lesions seen on Ct scan and Ultrasound) as well as colonoscopy as outpatient. Please follow-up with the billposting supervisor/oncologist within a week after discharge. Please follow-up with the bi data architect within a week after discharge. Please follow-up with the vascular surgeon within 1 month after discharge. Medications at Discharge Discharge Medications: Continue taking these medications: Losartan Potassium (Losartan Potassium) 100 MG TABLET 1 Tablet ORAL DAILY Qty = 90 Comments: Last Taken: 01/18/18 Time: 9AM Amlodipine Besylate (Amlodipine Besylate) 5 MG TABLET 1 Tablet ORAL DAILY Qty = 90 Comments: Last Taken: 01/18/18 Time: 9AM Meloxicam (Meloxicam) 7.5 MG TABLET 1 Tablet ORAL DAILY Qty = 30 Comments: NOT GIVEN IN HOSPITAL Start taking the following new medications: Rivaroxaban (Xarelto) 15 MG TABLET 1 Tablet ORAL TWICE DAILY Qty = 42 No Refills Instructions: take 1 tab (15 mg) twice a day for 3 weeks then switch to 1 tab (20 mg) daily with food. Comments: NOT GIVEN IN HOSPITAL Rivaroxaban (Xarelto) 20 MG TABLET 1 Tablet ORAL DAILY Qty = 14 No Refills Instructions: with food Comments: NOT GIVEN IN HOSPITAL Copies To: Doroteo CORTES,Evan Payne; Devika CORTES,Josh; Anya CORTES,Getachew Acosta; Chong CORTES, [place]; Rylee CORTES PHD,Ramírez Stearns
== END 2018-01-18 13:18 | DRG 299 ==
LOC: ERH 14:40 → 1NO 17:19 → ERHI 17:19 → ENRESERV 18:59 → ENTRNSPT 19:50 → EDTRNSPTSTS 20:05 → EDTRNSPT 20:05 → 1NO 20:22 → CMPTRNSPT 20:27 → 1NO 22:40 → ENPENDDIS 01-18 12:14 → 1NO 01-18 13:18
PROVIDERS: Hospitalist; Internal Medicine; Physician Assistant Medical
DX: I82.411 Acute embolism and thrombosis of right femoral vein (principal); I26.99 Other pulmonary embolism without acute cor pulmonale; K86.0 Alcohol-induced chronic pancreatitis; D68.59 Other primary thrombophilia; I82.442 Acute embolism and thrombosis of left tibial vein; E78.5 Hyperlipidemia, unspecified; F10.10 Alcohol abuse, uncomplicated; J38.1 Polyp of vocal cord and larynx; M47.9 Spondylosis, unspecified; Z87.891 Personal history of nicotine dependence; D72.829 Elevated white blood cell count, unspecified; F12.90 Cannabis use, unspecified, uncomplicated; K76.9 Liver disease, unspecified; R00.0 Tachycardia, unspecified
CPT/HCPCS: 1NSP; 36415; 36592; 71045; 80307; 81001; 82436; 93005; 93010; 93306; 93970; J1644; J2930; J3490; J7060

== ENCOUNTER 2018-01-20 11:10 | Inpatient (IN) | payer OTHER, MEDICARE ==
[~2018-01-20] VITALS: Ht 188 cm; Wt 94.1 kg
[~2018-01-20 11:10] MED LIST changes: +ELIQUIS5 M1 PO; +MELOXICAM7.5 M1 PO; +XARELTO15 M1 PO; +XARELTO20 M2 PO
--- NOTE | 2018-01-20 12:13 | ED DYSPNEA/ASTHMA COMPLAINT ---
History of Present Illness General Chief Complaint: Dyspnea (COPD, CHF, Other) Stated Complaint: SOB RIGHT SIDE ACHES DOWN RIGHT LEG X5 DAYS Source: patient, old records Exam Limitations: no limitations Vital Signs & Intake/Output Vital Signs & Intake/Output Vital Signs Date Time Temp Pulse Resp B/P B/P Pulse O2 O2 Flow FiO2 Mean Ox Delivery Rate 01/20 1448 98.0 95 18 158/99 96 Room Air 01/20 1359 97.0 92 18 114/81 100 Room Air 01/20 1247 97.0 77 16 150/70 94 Room Air 01/20 1212 99 Room Air 01/20 1129 98.9 85 20 136/65 100 Room Air Allergies Coded Allergies: No Known Allergies (09/13/17) Reconcile Medications Amlodipine Besylate 5 MG TABLET 1 TAB PO DAILY BP (Reported) Losartan Potassium 100 MG TABLET 1 TAB PO DAILY BP (Reported) Meloxicam 7.5 MG TABLET 1 TAB PO DAILY inflammation pain (Reported) Rivaroxaban (Xarelto) 15 MG TABLET 1 TAB PO BID pulmonary embolism take 1 tab (15 mg) twice a day for 3 weeks then switch to 1 tab (20 mg) daily with food. Triage Note: STATES HE WAS DX WITH MULTIPLE PE'S LAST SATURDAY AND D/C ON SATURDAY. STATES TODAY HE GOT UP AND HAD BREAKFAST, STARTED HAVING AN ACHE IN THE RIGHT CALF, HAD SOB WITH EXERTION, ACHE IN RIGHT SIDE. Triage Nurses Notes Reviewed? yes Onset: Gradual Duration: day(s): Timing: recent history HPI: 67yo male with hx of recent PE/DVT diagnosis on Xarelto discharge 01/18, HTN presents to ED complaining of dyspnea x yesterday, worsening since onset. Dyspnea is worse with exertion. Patient also reports cramping in right calf which improved slightly after he walks. Patient has right lateral chest aching pain which has been constant. This morning patient reports lightheadedness. Patient reports blood in stool this morning described as dark stool with dark red tinge to water and toilet. Patient reports epistaxis yesterday. The patient denies chest pain, syncope, abdominal pain, fevers, chills, vomiting. (Farzana MONTEIRO,Carmelita Nolen) Past History Travel History Traveled to [place] past 21 day No Medical History Any Pertinent Medical History? 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 No (Carmelita Prescott) Review of Systems Review of Systems Constitutional: Reports: no symptoms. EENTM: Reports: see HPI. Respiratory: Reports: see HPI. Cardiovascular: Reports: no symptoms. GI: Reports: see HPI. Genitourinary: Reports: no symptoms. Musculoskeletal: Reports: see HPI. Skin: Reports: no symptoms. Neurological/Psychological: Reports: no symptoms. Hematologic/Endocrine: Reports: no symptoms. Immunologic/Allergic: Reports: no symptoms. All Other Systems: Reviewed and Negative (Carmelita Prescott) Physical Exam Physical Exam General Appearance: well developed/nourished, no apparent distress, alert, awake Head: atraumatic, normal appearance Eyes: Bilateral: normal appearance. Ears, Nose, Throat: hearing grossly normal Neck: normal inspection, supple, full range of motion Respiratory: normal breath sounds, no respiratory distress, lungs clear Cardiovascular: regular rate/rhythm Peripheral Pulses: 2+ radial (R), 2+ radial (L) Gastrointestinal: normal bowel sounds, soft, non-tender, no organomegaly Rectal: normal rectal tone, heme positive stool Extremities: normal inspection, normal capillary refill, NO CALF TENDERNESS Neurologic/Psych: awake, alert, oriented x 3 Skin: intact, normal color, warm/dry Core Measures ACS in differential dx? Yes CVA/TIA Diagnosis No Sepsis Present: No Sepsis Focused Exam Completed? No (Carmelita Prescott) Progress Differential Diagnosis: asthma, AMI, costochondritis, COPD, pulmonary embolism, DVT, ADVERSE DRUG REACTION, BLEEDING Plan of Care: Orders Procedure Date/time Status Regular Diet 01/[address] in observation 01/20 1454 Active Pathway - chart 01/20 1446 Active House Staff 01/20 1446 Active Patient Data 01/20 1446 Active Code Status 01/20 1446 Active Patient Data 01/20 1425 Active OXYGEN SETUP (GEN) 01/20 1348 Active Saline Lock 01/20 1348 Active Vital Signs 01/20 1348 Active Activity/Ambulation 01/20 1348 Active Code Status 01/20 1348 Complete Intake & Output 01/20 1212 Active TROPONIN LEVEL 01/20 1153 Complete PARTIAL THROMBOPLASTIN TIME 01/20 1153 Complete PROTHROMBIN TIME 01/20 1153 Complete CBC WITHOUT DIFFERENTIAL 01/20 1153 Complete BASIC ELECTROLYTES PLUS BUN&CR 01/20 1153 Complete EKG 01/20 1114 Active VTE Mechanical Prophylaxis 01/20 UNK Active MISTAKE 01/20 UNK Active Telemetry/Business Development Analyst 01/20 UNK Active Laboratory Tests 01/20/18 1155: Anion Gap 12, Estimated GFR > 60, BUN/Creatinine Ratio 22.7, Troponin I 0.19 *H, PT 28.2 H, INR 2.71 H, APTT 34, CBC w Diff NO MAN DIFF REQ, RBC 3.38 L, MCV 85.6, MCH 28.8, MCHC 33.7, RDW 13.3, MPV 8.3, Gran % 69.9, Lymphocytes % 12.1 L , Monocytes % 8.1, Eosinophils % 9.0 H, Basophils % 0.9, Absolute Granulocytes 8.2 H, Absolute Lymphocytes 1.4, Absolute Monocytes 0.9 H, Absolute Eosinophils 1.1, Absolute Basophils 0.1 Patient's troponin is elevated today however compared to recent studies his troponin is trending down since discharge. Patient has elevated coagulation panel, guaiac positive stool here in the emergency department, bleeding despite being on Xarelto for only a few days. I discussed this patient with Dr. Manjarrez, given recent symptoms he will require hospital stay for further evaluation of his anticoagulation. Spoke with hospitalist Dr. Simpson, patient is a candidate for IVC filter. Spoke with Dr. Soto, IR. Patient's last dose of Xarelto was this morning, patient can have IVC placement tomorrow possibly. Case management discussed this case with Dr. Arteaga and it was recommended patient started as observation. Initial ED EKG: sinus rythm @ 85, nonspecific ST changes Prior EKG: unchanged (Carmelita Prescott) Departure Departure Disposition: STILL A PATIENT Condition: Stable Clinical Impression Primary Impression: Pulmonary emboli Secondary Impressions: DVT (deep venous thrombosis), Epistaxis, Guaiac positive stools Referrals: Doroteo CORTES,Evan Payne (PCP/Family) Departure Forms: Customer Survey General Discharge Information Observation Note Spoke With: Calvin CORTES,Lamar Stearns Physician Advisor Notified: TAYLOR CORTES,SHAVONNE [place] Patient In: Non-ED OBS Care Area Rationale for Observation: My rational for observation is as follows [patient was bleeding well and Xarelto with elevated prothrombin time acquiring IVC filter placement tomorrow with IR, repeat labs, telemetry monitoring, recent diagnosis of pulmonary embolism/DVT]. (Carmelita Prescott) PA/GROUP LEADER SEMICONDUCTOR TESTING Co-Sign Statement Statement: ED Attending supervision documentation- x I saw and evaluated the patient. I have also reviewed all the pertinent lab results and diagnostic results. I agree with the findings and the plan of care as documented in the PA's/GROUP LEADER SEMICONDUCTOR TESTING's documentation. PE / DVT with epistaxis, continued leg pain, SOB [] I have reviewed the ED Record and agree with the PA's/GROUP LEADER SEMICONDUCTOR TESTING's documentation. [] Additions or exceptions (if any) to the PAs/GROUP LEADER SEMICONDUCTOR TESTING's note and plan are summarized below: [] (Josseline CORTES,Damian) Critical Care Note Critical Care Note Critical Care Time: non-applicable (Carmelita Prescott)
[2018-01-20 12:17] LABS: PT 28.2 SEC (9.4-12.5); PTT 34 SEC (25-37)
[2018-01-20 12:23] LABS: ABSOLUTE BASOPHIL COUNT 0.1 /CUMM (0.0-0.2); ABSOLUTE EOSINOPHIL COUNT 1.1 /CUMM (0.0-0.7); ABSOLUTE GRANULOCYTE CT 8.2 /CUMM (1.4-6.5); ABSOLUTE LYMPH COUNT 1.4 /CUMM (1.2-3.4); ABSOLUTE MONOCYTE COUNT 0.9 /CUMM (0.10-0.60); BASOPHIL % 0.9 % (0.0-2.0); GRANULOCYTE % 69.9 % (42.2-75.2); HEMATOCRIT 28.9 % (42-52); MEAN CORPUSCULAR HGB 28.8 PG (27.0-31.0); MEAN CORPUSCULAR HGB CONC 33.7 G/DL (33.0-37.0); MEAN CORPUSCULAR VOLUME 85.6 FL (80.0-94.0); MEAN PLATELET VOLUME 8.3 FL (7.4-10.4); PLATELET COUNT 441 /CUMM (130-400); RBC DISTRIBUTION WIDTH 13.3 % (11.5-14.5); RED BLOOD CELL CT 3.38 /CUMM (4.70-6.10); WHITE BLOOD CELL COUNT 11.7 /CUMM (4.8-10.8)
--- NOTE | 2018-01-20 14:30 | History & Physical ---
Goyo Paul 01/20/18 1429: General Information and HPI History of Present Illness: Mr. Salter is a 67-year-old man with a past medical history of Bilateral lower extremity DVT and Bilateral unprovoked PE (on Rivaroxaban) with recent admission 01/15/18-01/18/18 hypertension, hyperlipidemia, alcohol abuse with pancreatitis, vocal cord polyp and back pain due to cervical degenerative joint disease who presents to the ED with SOB and RLE pain. Patient reports yesterday he went to an [employer] with some friends and felt fine during the day. Later that day he had some Greek food. Yesterday evening after blowing his nose he noticed a "pinkish" colored tissue without gross blood. He states it "freaked him out with the blood thinner and all that" he also reports he had some mild shortness of breath that became progressively worse this morning. He felt lightheaded and that was aggravated by sitting and standing. This morning he also noticed after moving his bowels the toilet was filled with a reddish colored water with formed stools. He reports a right lateral abdominal and back pain and took one Tylenol PM pill without relief. He denies trauma, gingival bleeding, chest pain, nausea , vomiting, palpitations or urinary symptoms. Allergies/Medications Allergies: Coded Allergies: No Known Allergies (09/13/17) Home Med list Amlodipine Besylate 5 MG TABLET 1 TAB PO DAILY BP (Reported) Losartan Potassium 100 MG TABLET 1 TAB PO DAILY BP (Reported) Meloxicam 7.5 MG TABLET 1 TAB PO DAILY inflammation pain (Reported) Rivaroxaban (Xarelto) 15 MG TABLET 1 TAB PO BID pulmonary embolism take 1 tab (15 mg) twice a day for 3 weeks then switch to 1 tab (20 mg) daily with food. Past History Travel History Traveled to [place] past 21 day No Medical History Neurological: NONE EENT: NONE Cardiovascular: hypertension, hyperlipidemia Respiratory: NONE Gastrointestinal: pancreatitis Hepatic: NONE Renal: NONE Musculoskeletal: osteoarthritis, rotator cuff injury Psychiatric: NONE Endocrine: NONE Blood Disorders: NONE Cancer(s): NONE COMMUNITY PROGRAM ASSISTANT/Reproductive: NONE History of MRSA: No History of VRE: No History of CDIFF: No Tetanus Vaccine: 09/13/17 Surgical History Surgical History: B/L rotator cuff repair Past Family/Social History Family History Relations & Conditions if any SISTER FH: colon cancer BROTHER FHx: congenital heart disease Psychosocial History Who Do You Live With? spouse Services at Home: None Primary Language: Wolof ETOH Use: occasional use Illicit Drug Use: denies illicit drug use Functional Ability Ambulation: independent Review of Systems Review of Systems Constitutional: Reports: see HPI. Exam & Diagnostic Data Last 24 Hrs of Vital Signs/I&O Vital Signs Date Time Temp Pulse Resp B/P B/P Pulse O2 O2 Flow FiO2 Mean Ox Delivery Rate 01/20 1359 97.0 92 18 114/81 100 Room Air 01/20 1247 97.0 77 16 150/70 94 Room Air 01/20 1212 99 Room Air 01/20 1129 98.9 85 20 136/65 100 Room Air Intake & Output 01/20 1600 01/20 0800 01/20 0000 Intake Total 0 Output Total Balance 0 Intake, Oral 0 Patient 229 lb Weight Weight Reported by Patient Measurement Method Physical Exam General Appearance Alert, Oriented X3, Cooperative HEENT Atraumatic, PERRLA, EOMI, dry mucous membranes Cardiovascular Regular Rate, Normal S1, Normal S2, No Murmurs Lungs Clear to Auscultation, Normal Air Movement Abdomen Normal Bowel Sounds, Soft, No Tenderness Extremities No Edema, Normal Pulses Rectal Guaiac positive stools Last 24 Hrs of Labs/Marlon: Laboratory Tests 01/20/18 1155: Anion Gap 12, Estimated GFR > 60, BUN/Creatinine Ratio 22.7, Troponin I 0.19 *H, PT 28.2 H, INR 2.71 H, APTT 34, CBC w Diff NO MAN DIFF REQ, RBC 3.38 L, MCV 85.6, MCH 28.8, MCHC 33.7, RDW 13.3, MPV 8.3, Gran % 69.9, Lymphocytes % 12.1 L , Monocytes % 8.1, Eosinophils % 9.0 H, Basophils % 0.9, Absolute Granulocytes 8.2 H, Absolute Lymphocytes 1.4, Absolute Monocytes 0.9 H, Absolute Eosinophils 1.1, Absolute Basophils 0.1 Diagnostic Data EKG Results 11:23 SR, LAD, nonspecific T wave inversions in V2, V3 HR 85 QTc 452 Assessment/Plan Assessment: Mr. Salter is a 67-year-old man with a past medical history of Bilateral lower extremity DVT and Bilateral unprovoked PE (on Rivaroxaban) with recent admission 01/15/18-01/18/18 hypertension, hyperlipidemia, alcohol abuse with pancreatitis, vocal cord polyp and back pain due to cervical degenerative joint disease who presents to the ED with SOB and RLE pain. Dyspnea His SOB may be secondary to his recent VTE. Patient was recently admitted for an unprovoked PE with BLE DVT. He was initially placed on IV heparin and transitioned to Rivaroxaban upon discharge. Previous ECHO demonstrated a normal EF of 55% with impaired LV relaxation. * Place on 24-hour observation * Serial TROP/ECG to rule out ACS * Vitals every shift * Strict I&O * Cardiology consult * Continue home medications UGIB and LGIB Patient reported epistaxis and BRBPR. His GI bleeding may be secondary to anticoagulation with NSAID use or secondary to liver lesions. His stools was heme positive. On patient's previous admission he was found to have 2 hypoechoic lesions in the liver suspicious for metastatic malignancy on abdominal ultrasound. * GI consult for possible colonoscopy/endoscopy * Saline nasal spray for epistaxis * Avoid NSAIDs * Hold meloxicam * Vascular consult for possible IVC filter placement Elevated troponin most likely secondary to demand ischemia, history of DVT/PE Diet: NPO for possible IVC filter as per IR DVT prophylaxis: ALPS, Rivaroxaban on hold Code: FULL As Ranked By This Provider Problem List: 1. Elevated troponin Core Measures/Misc (08/11) Acute Coronary Syndrome ACS Diagnosis: No Congestive Heart Failure Congestive Heart Failure Diagnosis No Cerebrovascular Accident CVA/TIA Diagnosis: No VTE (View Protocol) VTE Risk Factors VTE (Previous) No Mechanical VTE Prophylaxis d/t N/A MechProphylax Ordered No VTE Pharm Prophylaxis d/t Bleeding (Active) Sepsis (View protocol) Sepsis Present: No Joe Wade MD 01/20/18 1436: Resident Review Statement Other Findings: Patient is a 67-year-old male recently discharged from the referring hospital on 01/18/2018 presented with shortness of breath,epistaxis, blood in the stool since one day, leading to anxiety so he came to the hospital. According to the patient he was having difficulty breathing going up and down stairs that was not new for him.Yesterday he was comfortable throughout the day and later on in the evening he had an episode of epistaxis/pinkish colored fluid from the nose, he become very anxious overnight and not able to sleep. In the morning he was slightly short of breath especially on walking up and down stairs , he felt a little bit lightheaded to. That he went to the bathroom he just saw some blood in the water along with a stool. He got scared and came to the . He denies currently chest pain, palpitation, nausea, vomiting, fever, runny nose , bleeding from any site of the body. Of note patient was also complaining of pain in the right side of the chest and upper abdomen. It was mild, aching in nature. Denies any aggravating or relieving factor. He took Tylenol for the pain. He was also complaining of pain in the right side of the knee and the calf. ED course - Vital signs -temperature 98.9, pulse 85, respiratory 20, blood pressure 136/65, SPO2 100% on room air.Blood work up WBC 9.7, hemoglobin 9.7, hematocrit 28.9, platelet count 441, granulocyte 69.9, sodium 140, potassium 3.7, BUN 25, creatinine 1.1, glucose 111, troponin I 0.19(0.35) 16, PT/INR -28.2/2.71 Past medical history - * History of PE/DVT on Xarelto * History of hypertension * History of hyperlipidemia * History of pancreatitis * History of osteoarthritis * Rotator cuff injury Allergies no known drug allergies Medication history -amlodipine, losartan, meloxicam, Rivaroxaban. Assessment and plan - Patient is a 67-year-old male recently discharged from the referring hospital treated for, bilateral DVT and PE by IV heparin followed by Xarelto. He was discharged on 01/18/2018 and was having baseline shortness of breath.He had bleeding through the nose and GI. His EKG was showing T-wave inversion in V2 and V3.His vitals were stable and on blood workup hemoglobin and hematocrit was stable. He denies for any active bleeding. Stool for occult blood was positive. It seems that he may have hemorrhoidal bleeding, but we need to stop anticoagulant for a while and discussed with GI for further evaluation and vascular if patient needed IVC filter. History of DVT/PE presented with, episodes of bleeding -GI bleeding and epistaxis * We will admit the patient to telemetry floor * We will repeat troponin and EKG in the morning * We will do CBC and BMP to see if there is any evidence of bleeding * Will obtain GI consult, to know the source of bleeding * We discussed with Dr. Borjas over the phone, he advised that patient may need IVC filter. To keep patient n.p.o. for tomorrow and call Dr. Soto, for IR guided IVC filter placement. * We will consult ENT to know the source of bleeding from the nose and start patient on saline nasal spray. * We will avoid NSAIDs including meloxicam * If patient had deteriorated or unstable will call GI immediately. Pain the right side of the chest - * Patient was having aching right-sided chest pain. He was having a mass in the right lobe of the liver. I am concerned that he might have, bleeding the mass. * We will watch for pain and if get worse than we will consider ultrasound of the abdomen. Hypertension - * Patient's blood pressure is stable we will continue all antihypertensive medication. CODE STATUS -full code Diet -heart healthy diet DVT prophylaxis-Fco Washington MD 01/20/18 2211: Attending MD Review Statement Attending Statement Attending MD Statement: examined this patient, discuss w/resident/PA/TRAVEL MANAGER, agreed w/resident/PA/TRAVEL MANAGER, reviewed EMR data (avail), reviewed images, amended to note Attending Assessment/Plan: The patient is a 67 yo male with h/o recent Can admission with diagnosis of bilateral LE DVT's along with bilateral pulmonary emboli. He was discharged on on Xarelto with plans for GI workup as OP. He presented in ED with c/o worsening GARAY and some generalized right sided discomfort. He denied any leg swelling. He c/o some blood from right nostril this morning and some red blood in bowl after bowel movement (no blood in stool itself or dark stool). He denied h/o recent nasal bleeding/GI bleeding. PA in ED had spoken to IR about possible IVC filter. H/H was stable since discharge. Physical Exam: VS: T 98.9, P 84, 20, BP 1136/65, PO 100% RA HEENT: eyes- PERRLA, EOMI nose- dry mucosa bilaterally w/o blood/bleeding (had blood day prior) nirav- no lesions Neck: no adenopathy Chest: clear Cor: RRR nl S1, S2 w/o murm Abd; BS+, soft, NT Ext: no edema, tenderness, cords- pulses 2+ Neuro: alert & oriented x 3, non-focal exam Labs/Tests- as above Impression/Plan: #Rectal Bleeding- patient describes red blood in toilet bowl with no blood in stool or dark stools. Possible etiologies include hemorrhoidal bleed, diverticular bleed, etc. Prior abd/pel CT showed some adenopathy and plan was for eventual colonoscopy to evaluate for tumor as cause of DVT/PE. Has been on Xarelto and Meloxicam since discharge. Plan: Bring in as observation patient per case management. Holding Xarelto/Meloxicam at present (took dose this morning). Follow H/H and for additional rectal bleeding. GI consult. Will determine if needs IVC filter pending evaluation. ? Colonoscopy. #Epistaxis- mild as noted by patient. As above, on Xarelto and Meloxicam. Plan: Hold meds- watch for further nasal bleeding. Nasal saline spray for moisturization and nasal bacitracin ointment (on Q-tip). ENT consult to evaluate for risk of further bleed. #Bilateral DVT's/PE's- as above, has been on Xarelto since discharge. Plan: Consider IVC filter in IR tomorrow. Holding Xarelto and Meloxicam. #Elevated Troponin I Level- is lower than last admission. Was considered demand ischemia. Plan: Will follow up troponin level in morning. Watch on telemetry tonight. #HTN- on Amlodipine/Losartan Plan: Continue Amlodipine/Losartan. #Chronic Back Pain- on Meloxicam. Plan: Hold Meloxicam- use Tylenol/Tramadol if needed.
[2018-01-20 16:51] VITALS: BP 130/70
[2018-01-20 22:16] VITALS: BP 140/80
[2018-01-21 07:08] VITALS: BP 146/78
[2018-01-21 08:23] LABS: ABSOLUTE BASOPHIL COUNT 0.1 /CUMM (0.0-0.2); ABSOLUTE EOSINOPHIL COUNT 0.9 /CUMM (0.0-0.7); ABSOLUTE GRANULOCYTE CT 6.5 /CUMM (1.4-6.5); ABSOLUTE LYMPH COUNT 1.3 /CUMM (1.2-3.4); BASOPHIL % 1.1 % (0.0-2.0); EOSINOPHIL % 9.4 % (0-5); GRANULOCYTE % 66.2 % (42.2-75.2); HEMATOCRIT 27.1 % (42-52); MEAN CORPUSCULAR HGB 28.8 PG (27.0-31.0); MEAN CORPUSCULAR HGB CONC 33.6 G/DL (33.0-37.0); MEAN CORPUSCULAR VOLUME 85.7 FL (80.0-94.0); MEAN PLATELET VOLUME 8.6 FL (7.4-10.4); PLATELET COUNT 406 /CUMM (130-400); RBC DISTRIBUTION WIDTH 13.9 % (11.5-14.5); RED BLOOD CELL CT 3.16 /CUMM (4.70-6.10); WHITE BLOOD CELL COUNT 9.8 /CUMM (4.8-10.8)
--- NOTE | 2018-01-21 09:59 | PN-Observation ---
Observation Note Observation Note _ I have personally examined CHARLINE SHAFER. him disposition is uncertain at this time. Before a determination can be made, he requires continued observation for the following reasons [bleeding per rectum]. Assessment/Plan Medical Assessment: Mr. Shafer is a 67-year-old man with a past medical history of Bilateral lower extremity DVT and Bilateral unprovoked PE (on Rivaroxaban) with recent admission 01/15/18-01/18/18 hypertension, hyperlipidemia, alcohol abuse with pancreatitis, vocal cord polyp and back pain due to cervical degenerative joint disease who presents to the ED with 1 episode of bleeding per retum on the morning of presentation. Patient was discharged on Xarelto on the after found to have unprovoked bilateral lower extremity DVT and bilateral PE. He was also found to have 2 hypoecoeic lesions in liver on abdominal US, with elevated CEA level(64) and with no colonoscopy done in the past. Family history also positive for sister with colon cancer. Problem List: 1. Epistaxis 2. Pulmonary emboli 3. Elevated troponin 4. Liver lesion 5. DVT (deep venous thrombosis) 6. Guaiac positive stools Plan: Probelm list; 1. Shortness of Breath 2. Positive troponins 3. GI Bleeding 4. Epistaxis 5. Liver lesions with elevated CEA ?? Colon Cancer - Continue to observe on telemetry floor. - Shortness of breath likely secondary to recent bilateral pulmonary emboli. - Positive troponins likely secondary to demand ischemia, troponin trended down from 0.119 0.15. - GI consult; plan for colonoscopy tomorrow. We'll start the patient on a clear liquid diet and bowel prep with GoLYTELY. - IV heparin -Patient was supposed to get an IVC filter placement today, we will defer the filter placement until colonoscopy results. - Saline nasal spray for epistaxis. - Repeat CBC in am to monitor H&H. HB goal > 8. DVT prophylaxis: IV heparin Patient is full code Subjective Follow-up For: GI Bleeding Episatxis Recent DVT/PE on Xarelto Tele-Events Since Last Visit: Sinus tachycardia Heart rate 85-124. Subjective: Patient sitting comfortably in the chair, no active complaints. Review of Systems Constitutional: Reports: no symptoms. Objective Last 24 Hrs of Vital Signs/I&O Vital Signs Date Time Temp Pulse Resp B/P B/P Pulse O2 O2 Flow FiO2 Mean Ox Delivery Rate 01/21 0933 86 146/70 01/21 0800 Room Air 01/21 0708 98.8 89 20 146/78 94 Room Air 01/21 0000 Room Air 01/20 2216 98.0 112 20 140/80 96 01/20 1755 Room Air 01/20 1651 97.9 92 20 130/70 95 01/20 1600 97.9 93 18 154/82 97 Room Air 01/20 1448 98.0 95 18 158/99 96 Room Air 01/20 1359 97.0 92 18 114/81 100 Room Air 01/20 1247 97.0 77 16 150/70 94 Room Air 01/20 1212 99 Room Air Intake & Output 01/21 1600 01/21 0800 01/21 0000 Intake Total 500 Output Total 400 Balance -400 500 Intake, Oral 500 Number 0 Bowel Movements Output, Urine 400 Patient 230 lb Weight Physical Exam General Appearance: Alert, Oriented X3, Cooperative Skin: No Rashes, No Breakdown Cardiovascular: Regular Rate, Normal S1, Normal S2 Lungs: Clear to Auscultation, Normal Air Movement Abdomen: Normal Bowel Sounds, Soft, No Tenderness Extremities: No Clubbing, No Cyanosis, No Edema, Normal Pulses Current Medications: Current Medications Sig/Natalee Start time Last Medication Dose Route Stop Time Status Admin Acetaminophen 650 MG Q4P PRN 01/21 0800 AC 01/21 PO 0835 Acetaminophen 650 MG ONCE ONE 01/20 2100 DC 01/20 PO 01/20 2101 2101 Amlodipine Besylate 5 MG DAILY 01/21 1000 AC 01/21 PO 0933 Dextrose/Sodium 1,000 ML Q13H 01/21 0930 AC 01/21 Chloride IV 01/21 2229 0933 Diclofenac Sodium 1 RAFIA 4 TIMES/DAY PRN 01/21 0800 AC 01/21 TOP 0844 Heparin Sodium 25,000 UNIT Q24H 01/21 1130 AC (Porcine) IV Sodium Chloride 500 ML Lidocaine 1 PAT DAILY 01/21 1000 AC EXT Losartan Potassium 100 MG DAILY 01/21 1000 AC 01/21 PO 0933 Morphine Sulfate 2 MG Q4P PRN 01/21 0800 AC IV Polyethylene Glycol 0.5 GAL 0500 01/22 0500 CAN PO 01/22 0501 Polyethylene Glycol 0.5 GAL 1700,0500 01/21 1700 AC PO 01/22 0501 Sodium Chloride 2 SPRAY Q4P PRN 01/20 1630 AC BEAU Zolpidem Tartrate 5 MG AT BEDTIME 01/20 2200 AC 01/20 PO 2148 Last 24 Hrs of Labs/Mics: Laboratory Tests 01/21/18 0615: Anion Gap 10, Estimated GFR > 60, BUN/Creatinine Ratio 20.0, Troponin I 0.15 *H, CBC w Diff NO MAN DIFF REQ, RBC 3.16 L, MCV 85.7, MCH 28.8, MCHC 33.6, RDW 13.9 , MPV 8.6, Gran % 66.2, Lymphocytes % 12.9 L, Monocytes % 10.4 H, Eosinophils % 9.4 H, Basophils % 1.1, Absolute Granulocytes 6.5, Absolute Lymphocytes 1.3, Absolute Monocytes 1.0 H, Absolute Eosinophils 0.9, Absolute Basophils 0.1 01/20/18 1155: Anion Gap 12, Estimated GFR > 60, BUN/Creatinine Ratio 22.7, Troponin I 0.19 *H, PT 28.2 H, INR 2.71 H, APTT 34, CBC w Diff NO MAN DIFF REQ, RBC 3.38 L, MCV 85.6, MCH 28.8, MCHC 33.7, RDW 13.3, MPV 8.3, Gran % 69.9, Lymphocytes % 12.1 L , Monocytes % 8.1, Eosinophils % 9.0 H, Basophils % 0.9, Absolute Granulocytes 8.2 H, Absolute Lymphocytes 1.4, Absolute Monocytes 0.9 H, Absolute Eosinophils 1.1, Absolute Basophils 0.1
--- NOTE | 2018-01-21 10:09 | PN- Att Addend ---
Attending Addendum Attending Brief Note Patient is a 67-year-old male recently diagnosed with unprovoked bilateral lower extremity deep vein thrombosis and bilateral pulmonary embolism. He was discharged home a few days ago on anticoagulation therapy with Xarelto. He presents with complaints of one episode of mild epistaxis and complaint of bright red blood per rectum. He is fortunately hemodynamically stable with normal blood pressure and no tachycardia. His hemoglobin level appears stable over the past few days. baseline hemoglobin in May and July 2017 was 15. On presentation to the hospital 6 days ago his hemoglobin was 10.8/11.0. During the hospitalization hemoglobin dropped to 9.6 on the day of discharge. His hemoglobin this morning is 9.1. Although he has had a significant drop of his hemoglobin level compared to baseline, over the past few days he does not appear to have had any significant blood loss. Also significant during his workup during the last admission was a hypoechoic lesion in the right lobe of the liver with lymphadenopathy near the jessica hepatis. His LFTs are within normal limits. He is currently lying comfortably in bed not in any acute distress. He is very jovial. He is not requiring oxygen supplementation. Denies nausea vomiting. Denies abdominal pain. Denies chest pain or shortness of breath. Denies palpitations. On examination heart sounds are regular. Lungs are clear to auscultation bilaterally. Abdomen is nondistended soft and nontender. He has no peripheral edema. He has no calf tenderness. Problems: 1. Lower GI bleed in the setting of oral anticoagulation therapy. 2. Recently diagnosed DVT/pulmonary embolism. 3. Chronic normocytic anemia. 4. Liver lesion. 5. Elevated CEA raising concern for colonic malignancy. 6. Elevated troponin; trending downwards from last admission. Attributed to demand ischemia at the time. Plan: -Keep n.p.o. Awaiting evaluation by the gastroenterology service. Patient will require colonoscopy. -Monitor H&H daily. Transfuse to keep hemoglobin level greater than 8. -Hold off placement of IVC filter for now. Decision will be made after colonoscopy if patient is not able to return on oral anticoagulation therapy. -Further workup of the liver lesion will be based on colonoscopy findings. Lesion may not need to be biopsied if a lesion that can be biopsied is noted on colonoscopy -His troponin appears to be down trending from last admission. No further cardiac workup indicated at present. -Patient is currently on observation level of care. Decision about discharge versus admitting to an inpatient level of care will be made after colonoscopy tomorrow.
--- NOTE | 2018-01-21 10:35 | PN- Student ---
Subjective Subjective: Mr. Alberts is 67 year old male who presented to the ED 01/19 after he noticed blood in his stools. He desribed it as "dark well formed stool with red in the water". He was discharged 01/17/18 on Xarelto due to DVT/PE. Pt also takes Mobic daily for back pain. He has no pain now and didnt have any yesterday before he presented to the ED. He does mention that the night before he noticed the bleeding that he had a "couple beers". On his last admisison 2 hypoechoic liver lesion were found on ultrasound 01/09/28. He has never had a colonoscopy. Denies any family history of malignancies. Objective Objective: General Appearance Alert, Oriented X3, Cooperative HEENT Atraumatic, PERRLA, EOMI, dry mucous membranes Cardiovascular Regular Rate, Normal S1, Normal S2, No Murmurs Lungs Clear to Auscultation, Normal Air Movement Abdomen Normal Bowel Sounds, Soft, No Tenderness Extremities No Edema, Normal Pulses Hb: 9.1 today down from 9.7 yesterday. Was 15 back in jul 2017. Assessment/Plan Assessment: 1. Rectal bleeding: colonoscopy to rule out any active bleeding or masses. Upper endoscopy to rule out esophageal varcies or ulcers. Pt. to be put on clear liquid diet with bowel prep at 5pm. 2. Liver masses: Further investigation with MRI and AFP level. 3. HTN: continue home medications 4. DVT/PE prophylaxis: Stop Xarelto due to its increased risk of GI bleeding and start on Levonox with last dose being tonight.
[2018-01-21 14:31] VITALS: BP 130/68
--- NOTE | 2018-01-21 17:04 | Cons- Gastroenterology ---
General Information and HPI Consulting Request Date of Consult: 01/21/18 Requested By: Hema Lamas MD Reason for Consult: 1. Acute Blood Loss Anemia 2. Abnormal US Abdomen 3. Elevated CEA 4. Chronic Anticoagulation Source of Information: patient, Electronic Medical Record History of Present Illness: Mr. Salter is a 67-year-old male who was admitted to [facility] in December () with acute shortness of breath. Patient was found to have bilateral DVT with bilateral pulmonary embolus with no clear risk factors. He was discharged to home on xarelto with plans for an outpatient workup for hypercoagulable state. He does report that he has a brother who has had a clotting disorder which is unspecified. He had not yet seen hematology as an outpatient when he returned to the hospital for a chief complaint of shortness of breath, mild epistaxis, and dark stools admixed with fresh blood. He takes Meloxicam for cervical arthritis as well as low back pain. He denies nausea, vomiting, abdominal pain. He has had no hematemesis. During patient's last admission he had an ultrasound of the abdomen the results of which are as follows. FINDINGS: PANCREAS: Limited visibility due to bowel gas. ABDOMINAL AORTA: Proximal aorta is not visualized. Portion of the mid aorta is unremarkable. INFERIOR VENA CAVA: Visualized portions are normal. LIVER: There are 2 round focal hypoechoic lesions in the liver. Both are within the right lobe. The largest measures 4.9 x 4.2 x 5.9 cm. This correlates with a hypodense lesion seen on the CTA of the chest. The second measures 1.9 x 1.4 x 1.8 cm. There is no intrahepatic bile duct dilatation. There are lymph nodes in the epigastric area near the liver at the jessica hepatis measuring about 2 cm of size. GALLBLADDER: The gallbladder is nearly filled with hyperechoic material with multiple tiny echogenic foci. The small foci though do have some ring down artifact. May be tiny gallstones and/or echogenic sludge. The thickness of the gallbladder wall is borderline measuring 0.4 cm. There is no pericholecystic fluid. Negative ultrasound Sin's sign. The gallbladder is distended to a length of 10 cm. COMMON BILE DUCT: Normal in caliber measuring 0.2 cm in diameter. RIGHT KIDNEY: There is an anechoic cyst in the upper pole of the right kidney measuring 1.8 cm. No hydronephrosis. No renal calculi or focal parenchymal lesions. The kidney measures 11.9 cm in maximum dimension. LEFT KIDNEY: Normal. No hydronephrosis. No renal calculi or focal parenchymal lesions. The kidney measures 12.7 cm in maximum dimension. SPLEEN: Normal. The spleen measures 12.6 cm in maximum dimension. FREE FLUID: None. IMPRESSION: 1. 2 hypoechoic lesions in the liver. The largest correlates to the hypodense lesion seen on the CTA of the chest. This is suspicious for metastatic malignancy. Dynamic MRI would be helpful for further assessment. 2. Lymphadenopathy at the jessica hepatis. This also suggest metastatic disease. 3. Echogenic material nearly fills the gallbladder likely from tiny gallstones and echogenic sludge. Borderline gallbladder wall thickening but no pericholecystic fluid and negative ultrasound Sin's sign. The gallbladder however is distended to a length of 10 cm. 4. Cyst upper pole of right kidney. As part of the workup given these abnormal findings on ultrasound he had a CEA which was 64.8 and alpha-fetoprotein which was 2.2. 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 He reports that he was a heavy drinker up until the mid but currently drinks only 2 or 3 beers on Saturday or Saturday. Allergies/Medications Allergies: Coded Allergies: No Known Allergies (09/13/17) Home Med List: Amlodipine Besylate 5 MG TABLET 1 TAB PO DAILY BP (Reported) Losartan Potassium 100 MG TABLET 1 TAB PO DAILY BP (Reported) Meloxicam 7.5 MG TABLET 1 TAB PO DAILY inflammation pain (Reported) Rivaroxaban (Xarelto) 15 MG TABLET 1 TAB PO BID pulmonary embolism take 1 tab (15 mg) twice a day for 3 weeks then switch to 1 tab (20 mg) daily with food. Current Medications: Current Medications Sig/Natalee Start time Last Medication Dose Route Stop Time Status Admin Acetaminophen 650 MG Q4P PRN 01/21 0800 AC 01/21 PO 0835 Acetaminophen 650 MG ONCE ONE 01/20 2100 DC 01/20 PO 01/201 2101 Amlodipine Besylate 5 MG DAILY 01/21 1000 AC 01/21 PO 0933 Dextrose/Sodium 1,000 ML Q13H 01/21 0930 AC 01/21 Chloride IV 01/21 2229 0933 Diclofenac Sodium 1 RAFIA 4 TIMES/DAY PRN 01/21 0800 AC 01/21 TOP 0844 Heparin Sodium 25,000 UNIT Q24H 01/21 1130 AC 01/21 (Porcine) IV 1233 Sodium Chloride 500 ML Lidocaine 1 PAT DAILY 01/21 1000 AC EXT Losartan Potassium 100 MG DAILY 01/21 1000 AC 01/21 PO 0933 Morphine Sulfate 2 MG Q4P PRN 01/21 0800 AC IV Patient Medication 1 ED ONE ONE 01/21 1515 DC Teaching ED 01/21 1516 Polyethylene Glycol 0.5 GAL 0500 01/22 0500 CAN PO 01/22 0501 Polyethylene Glycol 0.5 GAL 1700,0500 01/21 1700 AC 01/21 PO 01/22 0501 1639 Sodium Chloride 2 SPRAY Q4P PRN 01/20 1630 AC BEAU Zolpidem Tartrate 5 MG AT BEDTIME 01/20 2200 AC 01/20 PO 2148 Past History Travel History Traveled to [place] past 21 day No Medical History Blood Transfusion Hx: No Neurological: NONE EENT: NONE Cardiovascular: hypertension, hyperlipidemia Respiratory: NONE Gastrointestinal: pancreatitis Hepatic: NONE Renal: NONE Musculoskeletal: osteoarthritis, rotator cuff injury Psychiatric: NONE Endocrine: NONE Blood Disorders: DVT, PE Cancer(s): NONE MANAGER INSPECTION/Reproductive: NONE Surgical History Surgical History: B/L rotator cuff repair Family History Relations & Conditions If Any: SISTER FH: colon cancer BROTHER FHx: congenital heart disease Psychosocial History Who Do You Live With? spouse Services at Home: None Primary Language: Mozambican Smoking Status: Former Smoker ETOH Use: occasional use Illicit Drug Use: denies illicit drug use Functional Ability Ambulation: independent Exam & Diagnostic Data Vital Signs and I&O Vital Signs Date Time Temp Pulse Resp B/P B/P Pulse O2 O2 Flow FiO2 Mean Ox Delivery Rate 01/21 1431 98.9 83 18 130/68 98 Room Air 01/21 1346 Nasal 3.0L Cannula 01/21 0933 86 146/70 01/21 0800 Room Air 01/21 0708 98.8 89 20 146/78 94 Room Air 01/21 0000 Room Air 01/20 2216 98.0 112 20 140/80 96 01/20 1755 Room Air 01/20 1651 97.9 92 20 130/70 95 Intake & Output 0201/21 0400 01/20 0400 01/19 0400 Intake Total 1107 500 0 Output Total 400 Balance 707 500 0 Intake, IV 427 Intake, Oral 680 500 0 Number 0 Bowel Movements Output, Urine 400 Patient 230 lb 230 lb 229 lb Weight Weight Bed scale Reported by Patient Measurement Method Physical Exam General Appearance: no apparent distress, alert, awake Head: atraumatic, normal appearance Eyes: Bilateral: normal appearance. Ears, Nose, Throat: hearing grossly normal, rhinophyma Neck: supple, full range of motion Respiratory: normal breath sounds, chest non-tender, lungs clear Cardiovascular: regular rate/rhythm, Normal S1 and S2 Gastrointestinal: normal bowel sounds, soft, non-tender, no organomegaly Extremities: normal inspection, no edema Neurologic/Psych: awake, alert, oriented x 3 Cranial Nerves: Cranial Nerves II-XII intact Skin: warm/dry, pallor, No telangiectasia Results Pertinent Lab Results: Laboratory Tests 01/21 01/20 0615 1155 Chemistry Sodium (137 - 145 mmol/L) 139 140 Potassium (3.5 - 5.1 mmol/L) 4.2 3.7 Chloride (98 - 107 mmol/L) 103 101 Carbon Dioxide (22 - 30 mmol/L) 26 27 Anion Gap (5 - 16) 10 12 BUN (9 - 20 mg/dL) 20 25 H Creatinine (0.7 - 1.2 mg/dL) 1.0 1.1 Estimated GFR (>60 ml/min) > 60 > 60 BUN/Creatinine Ratio (7 - 25 %) 20.0 22.7 Troponin I (<0.11 ng/ml) 0.15 *H 0.19 *H Coagulation PT (9.4 - 12.5 SEC) 28.2 H INR (0.90 - 1.17) 2.71 H APTT (25 - 37 SEC) 34 Hematology CBC w Diff NO MAN DIFF REQ NO MAN DIFF REQ WBC (4.8 - 10.8 /CUMM) 9.8 11.7 H RBC (4.70 - 6.10 /CUMM) 3.16 L 3.38 L Hgb (14.0 - 18.0 G/DL) 9.1 L 9.7 L Hct (42 - 52 %) 27.1 L 28.9 L MCV (80.0 - 94.0 FL) 85.7 85.6 MCH (27.0 - 31.0 PG) 28.8 28.8 MCHC (33.0 - 37.0 G/DL) 33.6 33.7 RDW (11.5 - 14.5 %) 13.9 13.3 Plt Count (130 - 400 /CUMM) 406 H 441 H MPV (7.4 - 10.4 FL) 8.6 8.3 Gran % (42.2 - 75.2 %) 66.2 69.9 Lymphocytes % (20.5 - 51.1 %) 12.9 L 12.1 L Monocytes % (1.7 - 9.3 %) 10.4 H 8.1 Eosinophils % (0 - 5 %) 9.4 H 9.0 H Basophils % (0.0 - 2.0 %) 1.1 0.9 Absolute Granulocytes (1.4 - 6.5 /CUMM) 6.5 8.2 H Absolute Lymphocytes (1.2 - 3.4 /CUMM) 1.3 1.4 Absolute Monocytes (0.10 - 0.60 /CUMM) 1.0 H 0.9 H Absolute Eosinophils (0.0 - 0.7 /CUMM) 0.9 1.1 Absolute Basophils (0.0 - 0.2 /CUMM) 0.1 0.1 Assessment/Plan Assessment/Recommendations: ASSESSMENT: 1. Acute on chronic blood loss anemia 2. Chronic use of anticoagulation 3. Elevated CEA 4. Hypodense lesion seen on ultrasound but not visualized on CT of the abdomen. Question metastatic disease versus fatty replacement of the liver. 5. Chronic use of NSAIDs. Given patient's acute blood loss would be concerned about the possibility of peptic ulcer disease. Especially given history of dark stools. RECOMMENDATIONS: 1. EGD and Colonoscopy in a.m. 2. GoLYTELY 2 L at 5 PM and 2 L at 4 AM nothing by mouth after second 2 L 3. Protonix 40 mg IV q [address] Scan abdomen as well as Ultrasound with radiology. Patient may need MRI with and without contrast to beter delineate hepatic lesions seen on US of the RUQ. 5. Discontinue meloxicam. 6. PT/INR in a.m. 7. Would heparinize and discontinue 4-6 hours prior to EGD and colonoscopy. 8. Hold anticoagulation 9. Would get iron studies, B12 and folate as patient's anemia is normocytic and RDW is normal Consult Acknowledgment - Thank you for your consult request.
[2018-01-21 20:19] LABS: PTT 37 SEC (25-37)
[2018-01-21 22:28] VITALS: BP 132/80
[2018-01-22 04:44] LABS: ABSOLUTE BASOPHIL COUNT 0.1 /CUMM (0.0-0.2); ABSOLUTE EOSINOPHIL COUNT 0.8 /CUMM (0.0-0.7); ABSOLUTE GRANULOCYTE CT 6.2 /CUMM (1.4-6.5); ABSOLUTE LYMPH COUNT 1.3 /CUMM (1.2-3.4); ABSOLUTE MONOCYTE COUNT 0.9 /CUMM (0.10-0.60); BASOPHIL % 1.2 % (0.0-2.0); EOSINOPHIL % 8.2 % (0-5); GRANULOCYTE % 66.4 % (42.2-75.2); HEMATOCRIT 24.5 % (42-52); MEAN CORPUSCULAR HGB 28.4 PG (27.0-31.0); MEAN CORPUSCULAR HGB CONC 33.1 G/DL (33.0-37.0); MEAN CORPUSCULAR VOLUME 85.9 FL (80.0-94.0); MEAN PLATELET VOLUME 8.4 FL (7.4-10.4); PLATELET COUNT 401 /CUMM (130-400); RBC DISTRIBUTION WIDTH 13.7 % (11.5-14.5); RED BLOOD CELL CT 2.85 /CUMM (4.70-6.10); WHITE BLOOD CELL COUNT 9.4 /CUMM (4.8-10.8)
[2018-01-22 04:50] LABS: PT 14.4 SEC (9.4-12.5)
[2018-01-22 04:52] LABS: PTT 87 SEC (25-37)
--- NOTE | 2018-01-22 07:14 | PN- Housestaff ---
Casi CORTES,[facility] 01/22/18 0713: Subjective Follow-up For: - Blood Per rectum - Recently diagnosed bilateral DVT and PE on Xarelto - ?? Colon cancer - Ileocecal mass on colonoscopy with liver lesions Tele-Events Since Last Visit: Normal sinus rhythm Heart rate 62-87 Subjective: Patient denies any active complaints. Review of Systems Constitutional: Reports: no symptoms. EENTM: Reports: no symptoms. Cardiovascular: Reports: no symptoms. Respiratory: Reports: no symptoms. Gastrointestinal: Reports: no symptoms. Genitourinary: Reports: no symptoms. Musculoskeletal: Reports: no symptoms. Skin: Reports: no symptoms. Neurological/Psychological: Reports: no symptoms. Hematologic/Endocrine: Reports: no symptoms. Immunologic/Allergic: Reports: no symptoms. Objective Last 24 Hrs of Vital Signs/I&O Vital Signs Date Time Temp Pulse Resp B/P B/P Pulse O2 O2 Flow FiO2 Mean Ox Delivery Rate 01/22 1435 98.5 75 18 142/82 98 Room Air 01/22 0826 91 140/68 01/22 0826 91 140/68 01/22 0720 97.7 91 20 118/58 99 Room Air 01/21 2228 97.9 89 18 132/80 99 Intake & Output 01/22 1600 01/22 0800 01/22 0000 Intake Total 400 274.4 523 Output Total Balance 400 274.4 523 Intake, IV 274.4 303 Intake, Oral 400 0 220 Number 3 8 3 Bowel Movements Patient 230 lb Weight Weight Bed scale Measurement Method Physical Exam General Appearance: Alert, Oriented X3, Cooperative, No Acute Distress Skin: No Rashes, No Breakdown Cardiovascular: Regular Rate, Normal S1, Normal S2 Lungs: Clear to Auscultation, Normal Air Movement Abdomen: Normal Bowel Sounds, Soft, No Tenderness Extremities: No Clubbing, No Cyanosis, No Edema, Normal Pulses Current Medications: Current Medications Sig/Natalee Start time Last Medication Dose Route Stop Time Status Admin Acetaminophen 650 MG Q4P PRN 01/21 0800 AC 01/22 PO 1707 Amlodipine Besylate 5 MG DAILY 01/21 1000 AC 01/22 PO 0826 Chlorhexidine 1 GM .STK-MED ONE 01/22 1332 DC Gluconate TOP 01/22 1333 Dextrose/Sodium 1,000 ML Q13H 01/21 0930 DC 01/21 Chloride IV 02/27 2229 0933 Diclofenac Sodium 1 RAFIA 4 TIMES/DAY PRN 01/21 0800 AC 01/22 TOP 1706 Heparin Sodium 5,000 UNIT .STK-MED ONE 01/21 2201 DC (Porcine) IV 01/21 2202 Heparin Sodium 5,000 UNIT .STK-MED ONE 01/21 2156 DC (Porcine) IV 01/21 2157 Heparin Sodium 5,000 UNIT .STK-MED ONE 01/21 2153 DC (Porcine) IV 01/21 2154 Heparin Sodium 7,837.5 UNIT ONCE ONE 01/21 2045 DC 01/21 (Porcine) IV 01/21 Heparin Sodium 25,000 UNIT Q24H 01/21 1130 AC 01/22 (Porcine) IV 06 Sodium Chloride 500 ML Lidocaine 1 PAT DAILY 01/21 1000 AC EXT Losartan Potassium 100 MG DAILY 01/21 1000 AC 01/22 PO 08 Morphine Sulfate 2 MG Q4P PRN 01/21 0800 AC IV Pantoprazole Sodium 40 MG BID 01/21 2200 AC 01/22 IV 0826 Polyethylene Glycol 0.5 GAL 1700,0500 01/21 1700 DC 01/22 PO 01/22 0501 0503 Sodium Chloride 2 SPRAY Q4P PRN 01/20 1630 AC BEAU Zolpidem Tartrate 5 MG AT BEDTIME 01/20 2200 AC 01/21 PO 2101 Last 24 Hrs of Lab/Marlon Results Last 24 Hrs of Labs/Mics: Laboratory Tests 01/22/18 1600: APTT Cancelled 01/22/18 0356: PT 14.4 H, INR 1.38 H 01/22/18 0356: Iron 23 L, TIBC 264, Ferritin 138.0, Vitamin B12 321, Folate 8.9, APTT 87 H, CBC w Diff NO MAN DIFF REQ, RBC 2.85 L, MCV 85.9, MCH 28.4, MCHC 33.1, RDW 13.7 , MPV 8.4, Gran % 66.4, Lymphocytes % 14.3 L, Monocytes % 9.9 H, Eosinophils % 8.2 H, Basophils % 1.2, Absolute Granulocytes 6.2, Absolute Lymphocytes 1.3, Absolute Monocytes 0.9 H, Absolute Eosinophils 0.8, Absolute Basophils 0.1 01/21/18 1845: APTT 37 Assessment/Plan Assessment: Mr. 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 Probelm list; 1. Shortness of Breath 2. Positive troponins 3. GI Bleeding 4. Epistaxis 5. Liver lesions with elevated CEA ?? Colon Cancer -We will admit the patient to telemetry floor after found to have an ileocecal mass on colonoscopy today with elevated CEA and liver lesions , which will require further workup. Awaiting biopsy results. - Patient will go for an IVC filter placement tomorrow. - Continue IV heparin with close monitoring of H&H given GI bleeding. - General surgery consult - Hemoglobin consult - Saline nasal spray for epistaxis. - Repeat CBC in am to monitor H&H. HB goal > 8. DVT prophylaxis: IV heparin Patient is full code Problem List: 1. Epistaxis 2. Demand ischemia 3. DVT (deep venous thrombosis) 4. Pulmonary emboli 5. Colon malignancy Pain Ratin Pain Location: None Pain Goal: Remain pain free Pain Plan: Pain pathway Tomorrow's Labs & Rationales: CBC(bleeding per rectum, on IV heparin) Hema Lamas MD 01/22/18 1042: Attending MD Review Statement Attending Statement Attending MD Statement: examined this patient, discuss w/resident/PA/MILLING MACHINIST, agreed w/resident/PA/MILLING MACHINIST, reviewed EMR data (avail), discussed with nursing, discussed with case mgmt, amended to note Attending Assessment/Plan: Patient seen and examined. Resting comfortably and not in any acute distress. Bowel prep done overnight. Patient reported bowel movements overnight but did lighten up towards the end of his treatment. His hemoglobin level trended down from 9.1 yesterday to 8.1 this morning. He fortunately remains hemodynamically stable. He denies chest pain or shortness of breath. He denies palpitations. On examination heart sounds are regular. Lungs are clear bilaterally. He has no peripheral edema. Recommendations: Heparin drip is on hold and patient is scheduled to undergo and endoscopy evaluation later on today. Continue to monitor hemoglobin level daily. Will transfuse to keep hemoglobin level greater than 7 In view of his anemia with drop in hemoglobin level will need to monitor patient more closely to ensure that he does not need blood transfusion. Recommend changing patient to inpatient level of care. Decision regarding resuming his oral anticoagulation therapy will be decided after evaluation of colonoscopy results. Discontinue telemetry monitoring.
[2018-01-22 07:20] VITALS: BP 118/58
--- NOTE | 2018-01-22 13:04 | Proc Note Colonoscopy ---
Colonoscopy Procedure Medical History: unchanged Mental Status: alert/oriented Heart/Lung Eval Prior to Sedation: within normal limits Candidate for Sedation? Yes Date of Last Colonoscopy: Baseline Colonoscopy Procedure Date: 01/22/18 Procedure Type: Colonoscopy with biopsy and submucosal electrical prospecting observer: MD New Deborah E. Indications: 1. Acute on chronic blood loss anemia 2. Hematochezia 3. Elevated CEA Meds Received: MAC Patient's Tolerance: good Complications: none Extent Reached: cecum Prep: good Procedure: The patient took a split dose colonic preparation after which they were NPO for an appropriate time prior to procedure. Note: Informed consent was obtained prior to procedure. Risks and benefits of procedure were discussed with patient. Potential complications discussed included perforation, bleeding, abdominal pain, and adverse reaction to medications. It was explained that iany or all of these complications could result in the need for extended hospitalization, emergency surgery, transfusion of packed red blood cells (with the risk of HIV or hepatitis virus), intubation with mechanical ventilation, and possible need for antibiotics. It was further explained that an existing tumor polyp or mucosal abnormality might not be identified at the time of the procedure thus resulting in a missed opportunity for early diagnosis and treatment of a gastrointestinal malignancy or disease with possible interval development of a gastrointestinal cancer or other disease with possible worsening of clinical condition in the interval between endoscopies. It was also discussed that complications are not limited to those listed above. Possible alternatives to endoscopic treatment or evaluation were discussed. All questions were answered. Continuous EKG and blood pressure monitors were attached. Supplemental oxygen was provided with O2 Sat monitoring. Patient was placed in the left lateral decubitus position. A surgical timeout was performed. All persons in the room were identified. All concerns were expressed and answered. Sedation was administered by anesthesia and titrated to comfort prior to starting procdedure. A digital rectal exam was performed. There was normal tone and no masses. The Olympus CHF 180AL video colonoscope was advanced under direct vision to the level of the cecum. Cecal landmarks could not be clearly visualized and the ileocecal valve could not be intubated. There appeared to be a large ulcerated fungating mass involving was presumed to be the ileocecal valve. Multiple biopsies were obtained from this mass. Tattoo was applied in all 4 quadrants proximal to the mass once 2 mL per quadrant with appropriate blebs being visualized. There was also a 1 cm lipoma proximal to the mass which was not biopsied. With colonoscope in the forward-viewing position it was slowly withdrawn and all areas were reinspected. The cecum, ascending colon, hepatic flexure, transverse colon, splenic flexure, descending colon, sigmoid colon, rectosigmoid junction, rectum and retroflexed view of the rectum all fully examined. Retroflexed view of the rectum revealed a normal mucosal and vascular pattern. Biopsy of normal-appearing colonic mucosa was obtained for a normal control for MSI testing. Medium-sized, nonbleeding, Grade 2 Internal and External hemorrhoids seen on retroflexion. There was a normal mucosal and vascular pattern throughout the remainder of the colon. There was maroon- colored blood scattered throughout the descending and descending colon which was suctioned. Air was suctioned as the scope was withdrawn from the colon. Patient tolerated the procedure well. Cecal withdrawal time: 9 minutes Colonic preparation: Right Colon: 2.75; Transverse Colon: 3; Left Colon: 2.75. [place] Prep Scale Total: 8.5. Difficulty of Colonoscopy: Not difficult EBL: 2 mL Specimens Removed: 1. 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 Random normal colonic mucosa for MSI testing Findings: 1. 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 Proximal ascending colon lipoma 3. Medium-sized, nonbleeding, Grade 2 Internal and External hemorrhoids Impression: 1. Mass, presumed malignant involving the ileocecal valve 2. Proximal ascending colon lipoma 3. Medium-sized, nonbleeding, Grade 2 Internal and External hemorrhoids Recommendations: 1. Await pathology 2. Would place IVC filter given patient's need for surgical resection as well as likely need for ongoing anticoagulation 3. Would obtain MRI with and without contrast given lesions seen on ultrasound of the abdomen 4. Consult surgery for hemicolectomy 5. GI will sign off for now please do not hesitate to contact us as needed 6. Would re-consult hematology. CC: Doroteo CORTES,Evan Payne
--- NOTE | 2018-01-22 13:11 | Proc Note Endoscopy ---
See Addendum Endoscopy Procedure Medical History: unchanged Mental Status: alert/oriented Heart/Lung Eval Prior to Sedation: within normal limits Candidate for Sedation? Yes Procedure Date: 01/22/18 Procedure Type: EGD w/biopsy Medical Management Trainer: MD New Deborah E. ASA Classification: III Indications: 1. Chronic use of NSAIDs 2. Acute blood loss anemia 3. Melena Instrument: diagnostic gastroscope Meds Received: MAC Patient's Tolerance: good Complications: none Extent Reached: second part of duodenum Procedure: Note: Informed consent was obtained prior to procedure. Risks and benefits of procedure were discussed with patient. Potential complications discussed included perforation, bleeding, abdominal pain, and adverse reaction to medications. It was explained that iany or all of these complications could result in the need for extended hospitalization, emergency surgery, transfusion of packed red blood cells (with the risk of HIV or hepatitis virus), intubation with mechanical ventilation, and possible need for antibiotics. It was further explained that an existing tumor polyp or mucosal abnormality might not be identified at the time of the procedure thus resulting in a missed opportunity for early diagnosis and treatment of a gastrointestinal malignancy or disease with possible interval development of a gastrointestinal cancer or other disease with possible worsening of clinical condition in the interval between endoscopies. It was also discussed that complications are not limited to those listed above. Possible alternatives to endoscopic treatment or evaluation were discussed. All questions were answered. Continuous EKG and blood pressure monitors were attached. Supplemental oxygen was provided with O2 Sat monitoring. Patient was placed in the left lateral decubitus position. A surgical timeout was performed. All persons in the room were identified. All concerns were expressed and answered. A bite block was placed in the mouth and sedation was administered by anesthesia and titrated to comfort prior to starting the procedure. The Olympus upper endoscope was advanced under direct vision to the level of the third portion of the duodenum. Esophagus: The esophagus had a normal mucosal vascular pattern throughout its entirety. The GE junction was identified and was normal. The Z line was located at 43 cm from the incisors and was nondisplaced. There is a nonobstructing Schatzki's ring noted at the GE junction. Stomach: The stomach had a normal mucosal and vascular pattern throughout its entirety with the exception of scattered small linear erosions with no stigmata of bleeding.. Retroflexed view of the cardiofundic region revealed a normal mucosal and vascular pattern. There were normal rugae and normal distensibility. The pylorus was patent and easily intubated. Biopsies were obtained from the antrum, angularis, gastric body and lesser curvature to rule out H. Pylori. Duodenum: The duodenum was fully examined from bulb down to the third portion. There was a normal mucosal vascular pattern throughout. There was a submucosal nodule within the second portion of the duodenum. Multiple biopsies were obtained from this. It was nonobstructing and not clearly a lipoma although it was not tethered to the duodenal wall and was freely movable. With the endoscope in the forward-viewing position, it was slowly withdrawn and all areas were re-inspected and findings are as described previously. Patient tolerated the procedure well. EBL: Minimal Specimens Removed: 1. Submucosal nodule second portion of the duodenum 2. antrum, angularis, gastric body and lesser curvature to rule out H. Pylori. Findings: 1. Submucosal nodule second portion of duodenum 2. Scattered gastric erosions with no stigmata of bleeding 3. Nonobstructing Schatzki's ring Impression: 1. Submucosal nodule second portion of duodenum 2. Scattered gastric erosions with no stigmata of bleeding 3. Nonobstructing Schatzki's ring Recommendations: 1. Await pathology 2. Colonoscopy to complete workup 3. Avoid NSAIDs
[2018-01-22 14:35] VITALS: BP 142/82
--- NOTE | 2018-01-22 20:04 | Cons- Vascular Surgery ---
General Information and HPI Consulting Request Date of Consult: 01/22/18 Requested By: Hema Lamas MD Reason for Consult: IVC filter placement Source of Information: patient, old records Exam Limitations: no limitations History of Present Illness: Mr. Salter is a 7-year-old male admitted for bleeding per rectum, taking Xeralto at the time of admission for newly diagnosed bilateral leg DVT and bilateral lung PE. Subsequent workup on this admission by general surgery, gastroenterology, and radiographic studies revealed a likely source of this rectal bleeding is due to colon neoplasm. He has been put on a heparin drip and rectal bleeding has been followed closely by the medical service after gastroenterology intervention. However due to the expected prolonged nature of his current course and diagnosis of bilateral lower extremity DVT vascular surgery has been consult to place an IVC filter to help with the management of this current diagnosis area Allergies/Medications Allergies: Coded Allergies: No Known Allergies (09/13/17) Home Med List: Amlodipine Besylate 5 MG TABLET 1 TAB PO DAILY BP (Reported) Losartan Potassium 100 MG TABLET 1 TAB PO DAILY BP (Reported) Meloxicam 7.5 MG TABLET 1 TAB PO DAILY inflammation pain (Reported) Rivaroxaban (Xarelto) 15 MG TABLET 1 TAB PO BID pulmonary embolism take 1 tab (15 mg) twice a day for 3 weeks then switch to 1 tab (20 mg) daily with food. 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 spouse Services at Home: None Primary Language: Maltese Smoking Status: Former Smoker ETOH Use: occasional use Illicit Drug Use: denies illicit drug use Functional Ability Ambulation: independent Exam & Diagnostic Data Vital Signs and I&O Vital Signs Date Time Temp Pulse Resp B/P B/P Pulse O2 O2 Flow FiO2 Mean Ox Delivery Rate 01/22 1600 Room Air 01/22 1435 98.5 75 18 142/82 98 Room Air 01/22 0826 91 140/68 01/22 0826 91 140/68 01/22 0720 97.7 91 20 118/58 99 Room Air 01/21 2228 97.9 89 18 132/80 99 Intake & Output 01/22 0801/22 0000 01/21 0000 Intake Total 400 274.4 423 1207 500 Output Total 400 Balance 400 274.4 423 1207 -400 500 Intake, IV 274.4 303 427 Intake, Oral 400 0 120 780 500 Number 3 8 3 0 Bowel Movements Output, Urine 400 Patient 230 lb 230 lb 230 lb Weight Weight Bed scale Bed scale Measurement Method Last 24 Hours of Labs: Laboratory Tests 01/22 01/22 01/22 1600 0356 0356 Chemistry Iron (49 - 181 ug/dL) 23 L TIBC (261 - 462 ug/dL) 264 Ferritin (17.9 - 464 ng/mL) 138.0 Vitamin B12 (239 - 931 pg/mL) 321 Folate (2.76 - 20.0 ng/mL) 8.9 Coagulation PT (9.4 - 12.5 SEC) 14.4 H INR (0.90 - 1.17) 1.38 H APTT (25 - 37 SEC) Cancelled 87 H Hematology CBC w Diff NO MAN DIFF REQ WBC (4.8 - 10.8 /CUMM) 9.4 RBC (4.70 - 6.10 /CUMM) 2.85 L Hgb (14.0 - 18.0 G/DL) 8.1 L Hct (42 - 52 %) 24.5 L MCV (80.0 - 94.0 FL) 85.9 MCH (27.0 - 31.0 PG) 28.4 MCHC (33.0 - 37.0 G/DL) 33.1 RDW (11.5 - 14.5 %) 13.7 Plt Count (130 - 400 /CUMM) 401 H MPV (7.4 - 10.4 FL) 8.4 Gran % (42.2 - 75.2 %) 66.4 Lymphocytes % (20.5 - 51.1 %) 14.3 L Monocytes % (1.7 - 9.3 %) 9.9 H Eosinophils % (0 - 5 %) 8.2 H Basophils % (0.0 - 2.0 %) 1.2 Absolute Granulocytes (1.4 - 6.5 /CUMM) 6.2 Absolute Lymphocytes (1.2 - 3.4 /CUMM) 1.3 Absolute Monocytes (0.10 - 0.60 /CUMM) 0.9 H Absolute Eosinophils (0.0 - 0.7 /CUMM) 0.8 Absolute Basophils (0.0 - 0.2 /CUMM) 0.1 Imaging Results: SERVICE DATE: 01/15/18 EXAM TYPE: US - US-EXT BILAT VENOUS DOPPLER EXAMINATION: US TRIPLEX OF LOWER EXTREMITIES, BILATERAL CLINICAL INFORMATION: Pulmonary embolism. 1 heparin. COMPARISON: None TECHNIQUE: Color-flow triplex imaging with spectral analysis and compression Doppler were performed on the lower extremities. FINDINGS: There is bilateral lower extremity deep vein thrombosis. Right lower leg: Thrombus present from the distal femoral vein through the popliteal vein into the calf involving the posterior tibial vein and peroneal veins. Left lower leg: Deep vein thrombosis is seen in the calf involving one of the paired posterior tibial veins and both of the peroneal veins. The veins more proximal, from the popliteal vein through the groin, is normal. There is no Morris's cyst. IMPRESSION: 1. Right lower extremity: Occlusive thrombus from the distal femoral vein through the calf. 2. Left lower extremity: Deep vein thrombosis in the peroneal vein and posterior tibial vein. This critical result was discussed with Dr. Lurdes Joya on 01/15/2018, 11:40 PM and it was ascertained that the content and urgency of the report was understood at the time of direct communication. DICTATED BY: Evan Garcia MD DATE/TIME DICTATED:01/15/182334 ENTERPRISE APPLICATIONS MANAGER:ASMITA DATE/TIME TRANSCRIBED:01/15/182334 Other Results: SERVICE DATE: 01/15/18 EXAM TYPE: CAT - CTA CHEST-PULMONARY EMBOLISM EXAMINATION: CT ANGIOGRAM OF THE CHEST WITH AND WITHOUT CONTRAST (CT PULMONARY ANGIOGRAM FOR PE) CLINICAL INFORMATION: Dyspnea. COMPARISON: Portable chest 01/15/2018. CT of abdomen and pelvis 01/19/2016, 11/26/2014. TECHNIQUE: Prior to contrast administration, noncontrast localization images were obtained. Subsequently, multidetector volumetric imaging was performed from the thoracic inlet to below the diaphragms following the administration of 95 mL Optiray 350 intravenous contrast. No contrast reaction reported. Sagittal, coronal, and MIP oblique sagittal reformatted images were obtained on the CT workstation, uploaded to PACS, and reviewed. DLP: 532.45 mGy-cm FINDINGS: QUALITY OF STUDY/CONTRAST BOLUS: Satisfactory. PULMONARY ARTERIES: There is extensive bilateral pulmonary emboli. Multiple emboli seen in both the right and left lungs in the secondary and tertiary branches of the vessels involving all lobes. THORACIC AORTA: No aneurysm or dissection. Scattered vascular wall calcification of the aorta at the aortic arch. LUNG: No focal consolidation, nodules or masses. PLEURA: No pleural effusion or pneumothorax. MEDIASTINUM: Normal heart size. No pericardial effusion. No hilar or mediastinal lymphadenopathy. No evidence of septal bowing or right heart strain. CHEST WALL/AXILLA: No axillary or internal mammary lymphadenopathy. OSSEOUS STRUCTURES: Degenerative spondylosis of spine with multilevel endplate spurring of the vertebrae. UPPER ABDOMEN: Focal low attenuation in the left lobe of liver adjacent to the gallbladder fossa and around a geographic area measuring about 5 cm. This is likely focal fatty infiltration. Not seen on the CAT scan of 01/19/2015. This can be further assessed with MRI. No reflux of contrast into the hepatic veins to suggest elevated right heart pressures. IMPRESSION: 1. Extensive bilateral pulmonary emboli. 2. Focal low-attenuation left lobe of liver near the gallbladder fossa likely from focal fatty change. This can be further assessed with dynamic MRI imaging. VTE: Negative. This critical result was discussed with Pipo Mir on 01/15/2018, 5:10 PM and it was ascertained that the content and urgency of the report was understood at the time of direct communication. DICTATED BY: Evan Garcia MD DATE/TIME DICTATED:01/15/181702 ENTERPRISE APPLICATIONS MANAGER:ASMITA DATE/TIME TRANSCRIBED:01/15/181702 Assessment/Plan Assessment/Plan Mr. Salter is a 67-year-old male history of bilateral lower extremity DVT, bilateral lung PE, taking Xarelto at time of admission with GI bleed being managed by gastroenterology and medicine. Endoscopy by gastroenterology reveals mass that has been biopsied and is likely the source of his rectal bleeding. To help with the management of this current course, Dr. Guerra plans to take Mr. Salter to the operating room on 01/23/2018 for placement of IVC filter. Plan The patient be nothing by mouth after midnight Heparin drip should be stopped husbandry person to OR in a.m. This procedure was discussed with the patient in detail and he is in agreement Dr. Guerra will discuss this plan with the patient in a.m. prior to procedure. Consult Acknowledgment - Thank you for your consult request.
[2018-01-22 22:19] VITALS: BP 138/80
[2018-01-22 22:34] LABS: ABSOLUTE BASOPHIL COUNT 0.1 /CUMM (0.0-0.2); ABSOLUTE EOSINOPHIL COUNT 0.6 /CUMM (0.0-0.7); ABSOLUTE GRANULOCYTE CT 7.2 /CUMM (1.4-6.5); ABSOLUTE LYMPH COUNT 1.7 /CUMM (1.2-3.4); ABSOLUTE MONOCYTE COUNT 1.1 /CUMM (0.10-0.60); BASOPHIL % 0.8 % (0.0-2.0); EOSINOPHIL % 5.3 % (0-5); GRANULOCYTE % 68.2 % (42.2-75.2); HEMATOCRIT 24.6 % (42-52); MEAN CORPUSCULAR HGB 28.4 PG (27.0-31.0); MEAN CORPUSCULAR HGB CONC 33.6 G/DL (33.0-37.0); MEAN CORPUSCULAR VOLUME 84.7 FL (80.0-94.0); MEAN PLATELET VOLUME 8.5 FL (7.4-10.4); PLATELET COUNT 412 /CUMM (130-400); RBC DISTRIBUTION WIDTH 13.6 % (11.5-14.5); WHITE BLOOD CELL COUNT 10.6 /CUMM (4.8-10.8)
[2018-01-22 22:56] LABS: PTT 59 SEC (25-37)
--- NOTE | 2018-01-22 23:02 | Cons- General Surgery ---
General Information and HPI Consulting Request Date of Consult: 02/19/18 Requested By: Adams CORTES,Hema History of Present Illness: cc: Colon tumor HPI: 67-year-old nondiabetic nonsmoker, with a remote history of alcoholic pancreatitis, hypertension hypercholesterolemia, came to the ER last week with progressive dyspnea especially on exertion and was found to have bilateral leg DVT's, bilateral pulmonary emboli and liver lesions he was started on Xarelto was discharged stable planning outpatient workup but then returned two days ago, after noting bloody nose and with bowel movements. Colonoscopy today showed a tumor in the cecum. Postprocedure patient is tolerating diet denies shortness of breath chest pain or abdominal pain bloating and nausea cramping, no more bloody bowel movements, he's on a heparin drip he has not been transfused. Otherwise no changes bowel habits, weight or appetite. I've reviewed the [facility]. No history of GERD, PUD, bleeding problems, heart disease or issues with anesthesia. His sister had colon cancer in her 60s patient doesn't recall details of stage and treatment. Allergies/Medications Allergies: Coded Allergies: No Known Allergies (09/13/17) Home Med List: Amlodipine Besylate 5 MG TABLET 1 TAB PO DAILY BP (Reported) Losartan Potassium 100 MG TABLET 1 TAB PO DAILY BP (Reported) Meloxicam 7.5 MG TABLET 1 TAB PO DAILY inflammation pain (Reported) Rivaroxaban (Xarelto) 15 MG TABLET 1 TAB PO BID pulmonary embolism take 1 tab (15 mg) twice a day for 3 weeks then switch to 1 tab (20 mg) daily with food. Current Medications: I reviewed Current Medications Sig/Natalee Start time Last Medication Dose Route Stop Time Status Admin Acetaminophen 650 MG Q4P PRN 01/21 0800 AC 01/22 PO 1707 Amlodipine Besylate 5 MG DAILY 01/21 1000 AC 01/22 PO 0826 Chlorhexidine 1 GM .STK-MED ONE 01/22 1332 DC Gluconate TOP 01/22 1333 Diclofenac Sodium 1 RAFIA 4 TIMES/DAY PRN 01/21 0800 AC 01/22 TOP 2152 Heparin Sodium 25,000 UNIT Q24H 01/21 1130 AC 01/22 (Porcine) IV 0627 Sodium Chloride 500 ML Lidocaine 1 PAT DAILY 01/21 1000 AC EXT Losartan Potassium 100 MG DAILY 01/21 1000 AC 01/22 PO 0826 Morphine Sulfate 2 MG Q4P PRN 01/21 0800 AC IV Pantoprazole Sodium 40 MG BID 01/21 2200 AC 01/22 IV 2150 Polyethylene Glycol 0.5 GAL 1700,0500 01/21 1700 DC 01/22 PO 01/22 0501 0503 Sodium Chloride 2 SPRAY Q4P PRN 01/20 1630 AC BEAU Zolpidem Tartrate 5 MG AT BEDTIME 01/20 2200 AC 01/22 PO 2151 Past History Medical History Blood Transfusion Hx: No Neurological: NONE EENT: NONE Cardiovascular: hypertension, hyperlipidemia Respiratory: NONE Gastrointestinal: pancreatitis Hepatic: NONE Renal: NONE Musculoskeletal: osteoarthritis, rotator cuff injury Psychiatric: NONE Endocrine: NONE Blood Disorders: DVT, PE Cancer(s): NONE 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 spouse Services at Home: None Primary Language: Tamazight Smoking Status: Former Smoker ETOH Use: occasional use Illicit Drug Use: denies illicit drug use Functional Ability Ambulation: independent Review of Systems Review of Systems: Constitutional: No fever, sweats or weight loss ENMT: No sore throat Cardiovascular: No chest pain, palpitations or leg swelling Respiratory: No shortness of breath, cough, or sputum or dyspnea on exertion GI: No GERD or bleeding per rectum : No dysuria or hematuria Musculoskeletal: No new muscle weakness, bone or joint pain Skin / Breast: No jaundice, rashes or itching Psychiatric: No history of drug or alcohol abuse no depression or anxiety Hematologic / lymphatic system: No problems with excessive bleeding, bruising, or blood clots Exam & Diagnostic Data Vital Signs and I&O I reviewed Vital Signs Date Time Temp Pulse Resp B/P B/P Pulse O2 O2 Flow FiO2 Mean Ox Delivery Rate 01/22 2219 98.6 87 21 138/80 95 01/22 1600 Room Air 01/22 1435 98.5 75 18 142/82 98 Room Air 01/22 08 91 140/68 01/22 0826 91 140/68 01/22 0720 97.7 91 20 118/58 99 Room Air I reviewed Intake & Output 01/22 1600 01/22 0800 01/22 0000 01/21 1600 01/21 0801/21 0000 Intake Total 400 274.4 423 1207 500 Output Total 400 Balance 400 274.4 423 1207 -400 500 Intake, IV 274.4 303 427 Intake, Oral 400 0 120 780 500 Number 3 8 3 0 Bowel Movements Output, Urine 400 Patient 230 lb 230 lb 230 lb Weight Weight Bed scale Bed scale Measurement Method Physical Exam: Constitutional: pleasant, no acute distress, conversant Eyes: sclera anicteric ENMT: ears and nose atraumatic, moist mucous membranes, good dentition, no lip lesions Neck: Supple, trachea is midline, no cervical or supraclavicular adenopathy and no palpable thyromegaly Cardiovascular: S1, S2, no murmurs, no peripheral edema Respiratory: clear to auscultation with normal respiratory effort and no intercostal retractions GI: abdomen soft, nontender, nondistended, no palpable hepatosplenomegaly and no obvious right lower quadrant mass or tenderness Extremities / lymphatics: symmetrically warm, free range of motion no peripheral edema, no cervical, supraclavicular, axillary, or inguinal adenopathy Musculoskeletal: Did not evaluate gait and station, no digital cyanosis, good muscle strength and tone no atrophy, motor grossly 5 out of 5 throughout Skin: no jaundice, no rashes warm, nondiaphoretic, no areas of erythema or induration Psychiatric: mood and affect are appropriate and alert and oriented to person place and time Last 24 Hours of Labs: I reviewed Laboratory Tests 01/22 01/22 01/22 7479 1600 0356 Coagulation PT (9.4 - 12.5 SEC) 14.4 H INR (0.90 - 1.17) 1.38 H APTT (25 - 37 SEC) 59 H Cancelled Hematology CBC w Diff NO MAN DIFF REQ WBC (4.8 - 10.8 /CUMM) 10.6 RBC (4.70 - 6.10 /CUMM) 2.90 L Hgb (14.0 - 18.0 G/DL) 8.3 L Hct (42 - 52 %) 24.6 L MCV (80.0 - 94.0 FL) 84.7 MCH (27.0 - 31.0 PG) 28.4 MCHC (33.0 - 37.0 G/DL) 33.6 RDW (11.5 - 14.5 %) 13.6 Plt Count (130 - 400 /CUMM) 412 H MPV (7.4 - 10.4 FL) 8.5 Gran % (42.2 - 75.2 %) 68.2 Lymphocytes % (20.5 - 51.1 %) 15.7 L Monocytes % (1.7 - 9.3 %) 10.0 H Eosinophils % (0 - 5 %) 5.3 H Basophils % (0.0 - 2.0 %) 0.8 Absolute Granulocytes (1.4 - 6.5 /CUMM) 7.2 H Absolute Lymphocytes (1.2 - 3.4 /CUMM) 1.7 Absolute Monocytes (0.10 - 0.60 /CUMM) 1.1 H Absolute Eosinophils (0.0 - 0.7 /CUMM) 0.6 Absolute Basophils (0.0 - 0.2 /CUMM) 0.1 01/22 0356 Chemistry Iron (49 - 181 ug/dL) 23 L TIBC (261 - 462 ug/dL) 264 Ferritin (17.9 - 464 ng/mL) 138.0 Vitamin B12 (239 - 931 pg/mL) 321 Folate (2.76 - 20.0 ng/mL) 8.9 Coagulation APTT (25 - 37 SEC) 87 H Hematology CBC w Diff NO MAN DIFF REQ WBC (4.8 - 10.8 /CUMM) 9.4 RBC (4.70 - 6.10 /CUMM) 2.85 L Hgb (14.0 - 18.0 G/DL) 8.1 L Hct (42 - 52 %) 24.5 L MCV (80.0 - 94.0 FL) 85.9 MCH (27.0 - 31.0 PG) 28.4 MCHC (33.0 - 37.0 G/DL) 33.1 RDW (11.5 - 14.5 %) 13.7 Plt Count (130 - 400 /CUMM) 401 H MPV (7.4 - 10.4 FL) 8.4 Gran % (42.2 - 75.2 %) 66.4 Lymphocytes % (20.5 - 51.1 %) 14.3 L Monocytes % (1.7 - 9.3 %) 9.9 H Eosinophils % (0 - 5 %) 8.2 H Basophils % (0.0 - 2.0 %) 1.2 Absolute Granulocytes (1.4 - 6.5 /CUMM) 6.2 Absolute Lymphocytes (1.2 - 3.4 /CUMM) 1.3 Absolute Monocytes (0.10 - 0.60 /CUMM) 0.9 H Absolute Eosinophils (0.0 - 0.7 /CUMM) 0.8 Absolute Basophils (0.0 - 0.2 /CUMM) 0.1 Assessment/Plan Assessment/Plan Studies I reviewed patient's historical labs in July as hemoglobin was 15 prior this month when he came initially with shortness of breath it was 10, already low before the anticoagulant I reviewed the chest CT from last week on PACS myself it does not show the colon you can see some liver lesions and portal adenopathy in the bilateral pulmonary emboli. CEA is 68, BUN/creatinine are normal Impression is colon tumor that's bleeding, and metastatic to the liver, he's on for Lyle filter placement tomorrow but he will still need anticoagulation because of the extent of the pulmonary emboli and hypercoagulable state from the malignancy. Given the high CEA and extensive clot related to malignancy, first a needs more imaging I discussed with radiology will order a CT scan with IV contrast the abdomen and pelvis need to see the anatomic relationship of the tumor, and will see the entire liver. I also discussed the case with hematology oncology, although the pathology of the biopsy still pending, clinically he has metastatic malignancy, usually if the primary lesion is not symptomatic and there are metastases, surgery is not the first step but in his case this tumor is bleeding even without anticoagulation so he will need resection soon. Presently he is not actively bleeding is stable good urine output no signs of obstruction continue workup tomorrow and the Lyle filter and plan for surgery on Saturday. It is noted that regarding the pulmonary emboli and perioperative risks, his echo does not show significant effects from the emboli, his breathing has improved, the slightly elevated troponin was felt to be secondary to the pulmonary status initially and not primary cardiac. Problem List: 1. Colon malignancy 2. Demand ischemia 3. DVT (deep venous thrombosis) 4. Liver lesion 5. Elevated troponin 6. 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 Gastrointestinal bleeding Consult Acknowledgment - Thank you for your consult request.
[2018-01-23 07:11] VITALS: BP 122/64
--- NOTE | 2018-01-23 07:27 | PN- Housestaff ---
Casi CORTES,Meagan 01/23/18726: Subjective Follow-up For: Colon Mass with liver mets Bilateral lower extremity DVt Bilateral PE Tele-Events Since Last Visit: Off Telemetry Subjective: Patient just back from the IVC filter placement. Wondering if he could eat now. Otherwise remains asymptomatic. Review of Systems Constitutional: Reports: no symptoms. EENTM: Reports: no symptoms. Cardiovascular: Reports: no symptoms. Respiratory: Reports: no symptoms. Gastrointestinal: Reports: no symptoms. Genitourinary: Reports: no symptoms. Musculoskeletal: Reports: no symptoms. Skin: Reports: no symptoms. Neurological/Psychological: Reports: no symptoms. Hematologic/Endocrine: Reports: no symptoms. Immunologic/Allergic: Reports: no symptoms. Objective Last 24 Hrs of Vital Signs/I&O Vital Signs Date Time Temp Pulse Resp B/P B/P Pulse O2 O2 Flow FiO2 Mean Ox Delivery Rate 01/23 0952 84 122/64 01/23 0951 84 122/64 01/23 0711 98.4 84 20 122/64 99 Room Air 01/22 2219 98.6 87 21 138/80 95 01/22 1600 Room Air 01/22 1435 98.5 75 18 142/82 98 Room Air Intake & Output 01/23 1600 01/23 0800 01/23 0000 Intake Total 408 650 Output Total Balance 408 650 Intake, IV 308 275 Intake, Oral 100 375 Number 0 Bowel Movements Physical Exam General Appearance: Alert, Oriented X3, Cooperative Skin: No Rashes, No Breakdown Cardiovascular: Regular Rate, Normal S1, Normal S2 Lungs: Clear to Auscultation, Normal Air Movement Abdomen: Normal Bowel Sounds, Soft, No Tenderness Extremities: No Clubbing, No Cyanosis, No Edema Current Medications: Current Medications Sig/Natalee Start time Last Medication Dose Route Stop Time Status Admin Acetaminophen 650 MG .STK-MED ONE 01/22 1706 DC PO 01/22 1707 Acetaminophen 650 MG Q4P PRN 01/21 0800 AC 01/22 PO 1707 Amlodipine Besylate 5 MG DAILY 01/21 1000 AC 01/23 PO 0952 Chlorhexidine 1 GM .STK-MED ONE 01/22 1332 DC Gluconate TOP 01/22 1333 Diclofenac Sodium 1 RAFIA 4 TIMES/DAY PRN 01/21 0800 AC 01/22 TOP 2152 Heparin Sodium 4,172 UNIT BOLUS ONE 01/22 2340 DC 01/23 (Porcine) IV 01/22 2341 0231 Heparin Sodium 25,000 UNIT Q24H 01/21 1130 AC 01/23 (Porcine) IV 01/24 0700 0402 Sodium Chloride 500 ML Lidocaine 1 PAT DAILY 01/21 1000 AC EXT Losartan Potassium 100 MG DAILY 01/21 1000 AC 01/23 PO 0951 Morphine Sulfate 2 MG Q4P PRN 01/21 0800 AC IV Pantoprazole Sodium 40 MG BID 01/21 2200 AC 01/23 IV 0951 Sodium Chloride 2 SPRAY Q4P PRN 01/20 1630 AC BEAU Zolpidem Tartrate 5 MG AT BEDTIME 01/20 2200 AC 01/22 PO 2151 Last 24 Hrs of Lab/Marlon Results Last 24 Hrs of Labs/Mics: Laboratory Tests 01/23/18 0607: APTT > 120 *H, CBC w Diff NO MAN DIFF REQ, RBC 2.96 L, MCV 85.6, MCH 28.7, MCHC 33.5, RDW 13.9, MPV 8.6, Gran % 67.2, Lymphocytes % 14.2 L, Monocytes % 10.1 H , Eosinophils % 7.3 H, Basophils % 1.2, Absolute Granulocytes 6.2, Absolute Lymphocytes 1.3, Absolute Monocytes 0.9 H, Absolute Eosinophils 0.7, Absolute Basophils 0.1 01/22/185: APTT 59 H, CBC w Diff NO MAN DIFF REQ, RBC 2.90 L, MCV 84.7, MCH 28.4, MCHC 33.6, RDW 13.6, MPV 8.5, Gran % 68.2, Lymphocytes % 15.7 L, Monocytes % 10.0 H , Eosinophils % 5.3 H, Basophils % 0.8, Absolute Granulocytes 7.2 H, Absolute Lymphocytes 1.7, Absolute Monocytes 1.1 H, Absolute Eosinophils 0.6, Absolute Basophils 0.1 01/22/18 1600: APTT Cancelled Assessment/Plan Assessment: Mr. 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 Probelm list; 1. Shortness of Breath 2. Positive troponins 3. GI Bleeding 4. Epistaxis 5. Liver lesions with elevated CEA ?? Colon Cancer - Patient had IVC filter placed this morning. - City abdomen and pelvis with IV contrast shows Large hepatic flexure mass suspicious for a colon cancer which appears to be widely metastatic with large mesenteric, retroperitoneal and upper abdominal lymph nodes, and suspected hepatic metastases with 4 hypoenhancing solid liver masses. - We'll start the patient on clear liquid diet and keep him nothing by mouth after midnight for hemicolectomy tomorrow. - Appreciate Hemoccult recommendations - Continue IV heparin with close monitoring of H&H given GI bleeding, remains stable so far. Hemoglobin goal > 8. DVT prophylaxis: IV heparin Patient is full code Problem List: 1. Gastrointestinal bleeding 2. Colon malignancy 3. Epistaxis 4. Demand ischemia 5. DVT (deep venous thrombosis) 6. Pulmonary emboli Pain Ratin Pain Location: None Pain Goal: Remain pain free Pain Plan: None Tomorrow's Labs & Rationales: CBC, BEP (Pre-Op) Hema Lamas MD 01/23/18 1116: Attending MD Review Statement Attending Statement Attending MD Statement: examined this patient, discuss w/resident/PA/ENTRY LEVEL ACCOUNT EXECUTIVE, agreed w/resident/PA/ENTRY LEVEL ACCOUNT EXECUTIVE, reviewed EMR data (avail), discussed with nursing, discussed with case mgmt, amended to note Attending Assessment/Plan: Patient seen and examined. Resting comfortably not in any acute distress. No issues overnight. IVC filter was successfully placed today by the vascular surgery service. He is hemodynamically stable. Hemoglobin level is stable. He has no new complaints today. On examination abdomen is soft and nontender with normal bowel sounds. He has no peripheral edema. I did discuss this case with the oncology service as well as general Recommendations: -Keep patient on clear liquid diet today. Keep n.p.o. past midnight surgical resection of his colonic mass tomorrow. -Patient will undergo CT abdomen and pelvis today for further evaluation of his colonic mass. -Continue anticoagulation with heparin. Hold preoperatively tomorrow. Follow- up with surgical service tomorrow regarding when heparin may be reinitiated.
--- NOTE | 2018-01-23 08:08 | Cons- Oncology ---
General Information and HPI Consulting Request Date of Consult: 01/23/18 Requested By: Adams CORTES,Hema Reason for Consult: PE, colonic mass, liver mass Source of Information: patient, old records Exam Limitations: no limitations History of Present Illness: Mr. Salter is a 67-year-old male with recent admission on 01/15/2018-01/18/2018 with diagnosis of bilateral lower extremity DVT and bilateral pulmonary embolism been treated with rituximab, hypertension, hyperlipidemia, alcohol abuse with pancreatitis, vocal cord polyp and back pain due to cervical degenerative joint disease who presents hospital with blood in stool. Symptoms started day before admission. He started noticing having some blood in his nose and subsequently had a bowel movement with blood in the stool. Since admission he was seen by Gastroenterology and had underwent an EGD and colonoscopy on 01/22/[address] New. EGD noted submucosa nodule in the second portion of the duodenum and scatter gastric erosion. Colonoscopy noted mass involving the ileocecal valve. He has been on heparin drip for his anticoagulation. Vascular surgery has been consulted for IVC filter placed. General surgery has been consulted for evaluation of the colonic mass. This morning he is feeling well without any new symptoms. He has no fever or chills. He denies any new pain. He has no new bleeding. Allergies/Medications Allergies: Coded Allergies: No Known Allergies (09/13/17) Home Med List: Amlodipine Besylate 5 MG TABLET 1 TAB PO DAILY BP (Reported) Losartan Potassium 100 MG TABLET 1 TAB PO DAILY BP (Reported) Meloxicam 7.5 MG TABLET 1 TAB PO DAILY inflammation pain (Reported) Rivaroxaban (Xarelto) 15 MG TABLET 1 TAB PO BID pulmonary embolism take 1 tab (15 mg) twice a day for 3 weeks then switch to 1 tab (20 mg) daily with food. Current Medications: Current Medications Sig/Natalee Start time Last Medication Dose Route Stop Time Status Admin Acetaminophen 650 MG .STK-MED ONE 01/22 1706 DC PO 01/22 1707 Acetaminophen 650 MG Q4P PRN 01/21 0800 AC 01/22 PO 1707 Amlodipine Besylate 5 MG DAILY 01/21 1000 AC 01/22 PO 0826 Chlorhexidine 1 GM .STK-MED ONE 01/22 1332 DC Gluconate TOP 01/22 1333 Diclofenac Sodium 1 RAFIA 4 TIMES/DAY PRN 01/21 0800 AC 01/22 TOP 2152 Heparin Sodium 4,172 UNIT BOLUS ONE 01/22 2340 DC 01/23 (Porcine) IV 01/22 2341 0231 Heparin Sodium 25,000 UNIT Q24H 01/21 1130 AC 01/23 (Porcine) IV 0402 Sodium Chloride 500 ML Lidocaine 1 PAT DAILY 01/21 1000 AC EXT Losartan Potassium 100 MG DAILY 01/21 1000 AC 01/22 PO 0826 Morphine Sulfate 2 MG Q4P PRN 01/21 0800 AC IV Pantoprazole Sodium 40 MG BID 01/21 2200 AC 01/22 IV 2150 Sodium Chloride 2 SPRAY Q4P PRN 01/20 1630 AC BEAU Zolpidem Tartrate 5 MG AT BEDTIME 01/20 2200 AC 01/22 PO 2151 Review of Systems Review of Systems Constitutional: Denies: chills, fever, weakness. Cardiovascular: Denies: chest pain. Respiratory: Denies: short of breath. GI: Reports: melena, bloody stool. Denies: abdominal pain. Genitourinary: Denies: dysuria. Musculoskeletal: Reports: back pain, neck pain. Neurological/Psychological: Denies: anxiety, confusion. Hematologic/Endocrine: Reports: bleeding. All Other Systems: Reviewed and Negative Past History Travel History Traveled to [place] past 21 day No Medical History Blood Transfusion Hx: No Neurological: NONE EENT: NONE Cardiovascular: hypertension, hyperlipidemia Respiratory: NONE Gastrointestinal: pancreatitis Hepatic: NONE Renal: NONE Musculoskeletal: osteoarthritis, rotator cuff injury Psychiatric: NONE Endocrine: NONE Blood Disorders: DVT, PE Cancer(s): NONE COATING MIXER TENDER/Reproductive: NONE Surgical History Surgical History: B/L rotator cuff repair Family History Relations & Conditions If Any: SISTER FH: colon cancer BROTHER FHx: congenital heart disease Psychosocial History Who Do You Live With? spouse Services at Home: None Primary Language: Mauritanian Smoking Status: Former Smoker ETOH Use: occasional use Illicit Drug Use: denies illicit drug use Functional Ability Ambulation: independent Exam & Diagnostic Data Vital Signs and I&O Vital Signs Date Time Temp Pulse Resp B/P B/P Pulse O2 O2 Flow FiO2 Mean Ox Delivery Rate 01/23 0711 98.4 84 20 122/64 99 Room Air 01/22 2219 98.6 87 21 138/80 95 01/22 1600 Room Air 01/22 1435 98.5 75 18 142/82 98 Room Air Intake & Output 01/23 1600 01/23 0800 01/23 0000 Intake Total 408 650 Output Total Balance 408 650 Intake, IV 308 275 Intake, Oral 100 375 Number 0 Bowel Movements Physical Exam General Appearance: well developed/nourished, no apparent distress, alert, awake , comfortable Head: atraumatic, normal appearance Eyes: Bilateral: PERRL, EOMI. Ears, Nose, Throat: normal pharynx, normal ENT inspection Respiratory: normal breath sounds, chest non-tender, no respiratory distress, quiet respiration Cardiovascular: regular rate/rhythm Gastrointestinal: normal bowel sounds, soft, non-tender Extremities: no edema Neurologic/Psych: awake, alert, oriented x 3 Cranial Nerves: normal hearing, normal speech Skin: normal color, warm/dry Last 48 Hours of Lab Results: Laboratory Tests 01/23 01/22 0607 2135 Coagulation APTT (25 - 37 SEC) Pending 59 H Hematology CBC w Diff NO MAN DIFF REQ NO MAN DIFF REQ WBC (4.8 - 10.8 /CUMM) 9.3 10.6 RBC (4.70 - 6.10 /CUMM) 2.96 L 2.90 L Hgb (14.0 - 18.0 G/DL) 8.5 L 8.3 L Hct (42 - 52 %) 25.4 L 24.6 L MCV (80.0 - 94.0 FL) 85.6 84.7 MCH (27.0 - 31.0 PG) 28.7 28.4 MCHC (33.0 - 37.0 G/DL) 33.5 33.6 RDW (11.5 - 14.5 %) 13.9 13.6 Plt Count (130 - 400 /CUMM) 420 H 412 H MPV (7.4 - 10.4 FL) 8.6 8.5 Gran % (42.2 - 75.2 %) 67.2 68.2 Lymphocytes % (20.5 - 51.1 %) 14.2 L 15.7 L Monocytes % (1.7 - 9.3 %) 10.1 H 10.0 H Eosinophils % (0 - 5 %) 7.3 H 5.3 H Basophils % (0.0 - 2.0 %) 1.2 0.8 Absolute Granulocytes (1.4 - 6.5 /CUMM) 6.2 7.2 H Absolute Lymphocytes (1.2 - 3.4 /CUMM) 1.3 1.7 Absolute Monocytes (0.10 - 0.60 /CUMM) 0.9 H 1.1 H Absolute Eosinophils (0.0 - 0.7 /CUMM) 0.7 0.6 Absolute Basophils (0.0 - 0.2 /CUMM) 0.1 0.1 01/22 01/22 01/22 1600 0356 0356 Chemistry Iron (49 - 181 ug/dL) 23 L TIBC (261 - 462 ug/dL) 264 Ferritin (17.9 - 464 ng/mL) 138.0 Vitamin B12 (239 - 931 pg/mL) 321 Folate (2.76 - 20.0 ng/mL) 8.9 Coagulation PT (9.4 - 12.5 SEC) 14.4 H INR (0.90 - 1.17) 1.38 H APTT (25 - 37 SEC) Cancelled 87 H Hematology CBC w Diff NO MAN DIFF REQ WBC (4.8 - 10.8 /CUMM) 9.4 RBC (4.70 - 6.10 /CUMM) 2.85 L Hgb (14.0 - 18.0 G/DL) 8.1 L Hct (42 - 52 %) 24.5 L MCV (80.0 - 94.0 FL) 85.9 MCH (27.0 - 31.0 PG) 28.4 MCHC (33.0 - 37.0 G/DL) 33.1 RDW (11.5 - 14.5 %) 13.7 Plt Count (130 - 400 /CUMM) 401 H MPV (7.4 - 10.4 FL) 8.4 Gran % (42.2 - 75.2 %) 66.4 Lymphocytes % (20.5 - 51.1 %) 14.3 L Monocytes % (1.7 - 9.3 %) 9.9 H Eosinophils % (0 - 5 %) 8.2 H Basophils % (0.0 - 2.0 %) 1.2 Absolute Granulocytes (1.4 - 6.5 /CUMM) 6.2 Absolute Lymphocytes (1.2 - 3.4 /CUMM) 1.3 Absolute Monocytes (0.10 - 0.60 /CUMM) 0.9 H Absolute Eosinophils (0.0 - 0.7 /CUMM) 0.8 Absolute Basophils (0.0 - 0.2 /CUMM) 0.1 01/21 1845 Coagulation APTT (25 - 37 SEC) 37 Imaging/Other Studies: Colonoscopy 01/22/2018 Dr. Fanny New: 1. 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 Proximal ascending colon lipoma 3. Medium-sized, nonbleeding, Grade 2 Internal and External hemorrhoids EGD 01/22/2018 Dr. Fanny New: 1. Submucosal nodule second portion of duodenum 2. Scattered gastric erosions with no stigmata of bleeding 3. Nonobstructing Schatzki's ring Assessment/Plan Assessment: Mr. Salter is a 67-year-old male with recent admission on 01/15/2018-01/18/2018 with diagnosis of bilateral lower extremity DVT and bilateral pulmonary embolism been treated with rituximab, hypertension, hyperlipidemia, alcohol abuse with pancreatitis, vocal cord polyp and back pain due to cervical degenerative joint disease who presents hospital with blood in stool. Since admission, he had had an EGD and colonoscopy done. colonoscopy demonstrated a large ulcerated fungating mass involving the ileocecal valve. This is concerning for malignancy. He also does have an ultrasound during the last admission which demonstrated possible 2 liver lesions with portal adenopathy. He has not had a complete staging scan. It would be reasonable to obtain a CT scan of the abdomen pelvis with contrast to evaluate the liver lesion and the extent of the abdominal mass. If liver lesions are not definitively defined, MRI may be done to further evaluate the liver. Depending on the imaging finding, he may be a surgical candidate and curable. His hemoglobin continues to trend downward since admission. Vascular surgery has been consulted for IVC filter. Given his bilateral lower extremity DVT and bilateral PE, he was still need anticoagulation. Anticoagulation will be difficult given his history of GI bleeding from his ulcerated fungating mass. The decision will be whether to undergo surgical resection of the mass given the persistent bleeding and need for anticoagulation. Radiation with likely not be a great option for the patient. Embolization with also unlikely to be beneficial in a bleeding tumor. Option would be to put him on heparin drip and monitor for bleeding. if he does bleed, he may need surgical resection. Other option would be to proceed with palliative resection and continue with anticoagulation afterward. This case was discussed with Dr. Patiño. He will likely undergo a right hemicolectomy for palliation and continue anticoagulation afterward. Recommendations: Ileocecal mass likely malignant: -obtain CT of the abdomen/pelvis with contrast -consider MRI if liver imaging is inconclusive on CT -general surgery evaluation with likely hemicolectomy for recurrent bleeding Bilateral PE/DVT: -heparin drip -IVC filter Problem List: 1. Colon malignancy 2. Epistaxis 3. Guaiac positive stools 4. DVT (deep venous thrombosis) 5. Liver lesion 6. Pulmonary emboli Other Findings/Comments: Please call [phone] with any questions or concerns. Consult Acknowledgment - Thank you for your consult request.
[2018-01-23 08:09] LABS: ABSOLUTE BASOPHIL COUNT 0.1 /CUMM (0.0-0.2); ABSOLUTE EOSINOPHIL COUNT 0.7 /CUMM (0.0-0.7); ABSOLUTE GRANULOCYTE CT 6.2 /CUMM (1.4-6.5); ABSOLUTE LYMPH COUNT 1.3 /CUMM (1.2-3.4); ABSOLUTE MONOCYTE COUNT 0.9 /CUMM (0.10-0.60); BASOPHIL % 1.2 % (0.0-2.0); EOSINOPHIL % 7.3 % (0-5); GRANULOCYTE % 67.2 % (42.2-75.2); HEMATOCRIT 25.4 % (42-52); MEAN CORPUSCULAR HGB 28.7 PG (27.0-31.0); MEAN CORPUSCULAR HGB CONC 33.5 G/DL (33.0-37.0); MEAN CORPUSCULAR VOLUME 85.6 FL (80.0-94.0); MEAN PLATELET VOLUME 8.6 FL (7.4-10.4); PLATELET COUNT 420 /CUMM (130-400); RBC DISTRIBUTION WIDTH 13.9 % (11.5-14.5); RED BLOOD CELL CT 2.96 /CUMM (4.70-6.10); WHITE BLOOD CELL COUNT 9.3 /CUMM (4.8-10.8)
--- NOTE | 2018-01-23 08:42 | Operative Report ---
Operative/Inv Procedure Report Surgery Date: 01/23/18 Name of Procedure: Ultrasound guidance for vascular access, insertion of IVC filter (Cook Celect) Pre-Operative Diagnosis: DVT with contraindication to anticoagulation due to GI bleeding Post-Operative Diagnosis: Same Estimated Blood Loss: scant Surgeon/Deputy Editor In Chief: Ramesh Guerra MD Anesthesia: local monitored anesthesi Complications: None Operative Indication: 67-year-old male seen by the PA yesterday with a history of bilateral lower extremity infrapopliteal DVT. He is also recently developed a GI bleeding related to a possible gastrointestinal mass. He has a contraindication to anticoagulation. IVC filter is indicated. Operative/Procedure Note Note: Patient was brought to the operating room prepped and draped and lunate supine on the operating table. After adequate anesthesia, IV lines, timeout was held in accordance with [facility] policy. With the use of ultrasound guidance a 21-gauge micropuncture needle was used to puncture the vein. This was exchanged for 5 Georgian coaxial dilator system and a sheath. This was advanced into the right femoral vein. It was advanced to the level of the infrarenal IVC. A dilator was then brought into the field and used to dilate the tract. A Cook IVC filter sheath was then brought into the field and advanced into the region of the L1-L2 lumbar space. An IVC venogram was performed. IVC venography demonstrates a patent IVC and the level of the renal veins. A Cook Celect IVC filter sheath was then brought into the field and deployed under direct fluoroscopy in an upright position. Post completion venography demonstrates an upright filter with no evidence of extravasation. The catheter sheath and wire systems were removed. Direct manual compression was held on the groin for 4 minutes. BioGlue was used to close the tract. The patient tolerated the procedure well. The patient should follow up as an outpatient for DVT surveillance and discussion for IVC filter retrieval.
[2018-01-23 08:58] LABS: PTT > 120 SEC (25-37)
--- NOTE | 2018-01-23 09:57 | PN- General Surgery ---
Subjective Subjective: Follow-up of colon tumor Objective Vital Signs and I&Os I reviewed Vital Signs Date Time Temp Pulse Resp B/P B/P Pulse O2 O2 Flow FiO2 Mean Ox Delivery Rate 01/23 0952 84 122/64 01/23 0951 84 122/64 01/23 0711 98.4 84 20 122/64 99 Room Air 01/22 2219 98.6 87 21 138/80 95 01/22 1600 Room Air 01/22 1435 98.5 75 18 142/82 98 Room Air I reviewed Intake & Output 01/23 0801/23 0000 01/22 1600 01/22 0801/22 0000 Intake Total 408 650 400 274.4 523 Output Total Balance 408 650 400 274.4 523 Intake, IV 308 275 274.4 303 Intake, Oral 100 375 400 0 220 Number 0 3 8 3 Bowel Movements Patient 230 lb Weight Weight Bed scale Measurement Method Current Medications: I reviewed Current Medications Sig/Natalee Start time Last Medication Dose Route Stop Time Status Admin Acetaminophen 650 MG .STK-MED ONE 01/22 1706 DC PO 01/22 1707 Acetaminophen 650 MG Q4P PRN 01/21 0800 AC 01/22 PO 1707 Amlodipine Besylate 5 MG DAILY 01/21 1000 AC 01/23 PO 0952 Chlorhexidine 1 GM .STK-MED ONE 01/22 1332 DC Gluconate TOP 01/22 1333 Diclofenac Sodium 1 RAFIA 4 TIMES/DAY PRN 01/21 0800 AC 01/22 TOP 2152 Heparin Sodium 4,172 UNIT BOLUS ONE 01/22 2340 DC 01/23 (Porcine) IV 01/22 2341 0231 Heparin Sodium 25,000 UNIT Q24H 01/21 1130 AC 01/23 (Porcine) IV 0402 Sodium Chloride 500 ML Lidocaine 1 PAT DAILY 01/21 1000 AC EXT Losartan Potassium 100 MG DAILY 01/21 1000 AC 01/23 PO 0951 Morphine Sulfate 2 MG Q4P PRN 01/21 0800 AC IV Pantoprazole Sodium 40 MG BID 01/21 2200 AC 01/23 IV 0951 Sodium Chloride 2 SPRAY Q4P PRN 01/20 1630 AC BEAU Zolpidem Tartrate 5 MG AT BEDTIME 01/20 2200 AC 01/22 PO 2151 Results Last 48 Hours of Labs: I rev Laboratory Tests 01/23 01/22 0607 2135 Coagulation APTT (25 - 37 SEC) > 120 *H 59 H Hematology CBC w Diff NO MAN DIFF REQ NO MAN DIFF REQ WBC (4.8 - 10.8 /CUMM) 9.3 10.6 RBC (4.70 - 6.10 /CUMM) 2.96 L 2.90 L Hgb (14.0 - 18.0 G/DL) 8.5 L 8.3 L Hct (42 - 52 %) 25.4 L 24.6 L MCV (80.0 - 94.0 FL) 85.6 84.7 MCH (27.0 - 31.0 PG) 28.7 28.4 MCHC (33.0 - 37.0 G/DL) 33.5 33.6 RDW (11.5 - 14.5 %) 13.9 13.6 Plt Count (130 - 400 /CUMM) 420 H 412 H MPV (7.4 - 10.4 FL) 8.6 8.5 Gran % (42.2 - 75.2 %) 67.2 68.2 Lymphocytes % (20.5 - 51.1 %) 14.2 L 15.7 L Monocytes % (1.7 - 9.3 %) 10.1 H 10.0 H Eosinophils % (0 - 5 %) 7.3 H 5.3 H Basophils % (0.0 - 2.0 %) 1.2 0.8 Absolute Granulocytes (1.4 - 6.5 /CUMM) 6.2 7.2 H Absolute Lymphocytes (1.2 - 3.4 /CUMM) 1.3 1.7 Absolute Monocytes (0.10 - 0.60 /CUMM) 0.9 H 1.1 H Absolute Eosinophils (0.0 - 0.7 /CUMM) 0.7 0.6 Absolute Basophils (0.0 - 0.2 /CUMM) 0.1 0.1 01/22 01/22 01/22 1600 0356 0356 Chemistry Iron (49 - 181 ug/dL) 23 L TIBC (261 - 462 ug/dL) 264 Ferritin (17.9 - 464 ng/mL) 138.0 Vitamin B12 (239 - 931 pg/mL) 321 Folate (2.76 - 20.0 ng/mL) 8.9 Coagulation PT (9.4 - 12.5 SEC) 14.4 H INR (0.90 - 1.17) 1.38 H APTT (25 - 37 SEC) Cancelled 87 H Hematology CBC w Diff NO MAN DIFF REQ WBC (4.8 - 10.8 /CUMM) 9.4 RBC (4.70 - 6.10 /CUMM) 2.85 L Hgb (14.0 - 18.0 G/DL) 8.1 L Hct (42 - 52 %) 24.5 L MCV (80.0 - 94.0 FL) 85.9 MCH (27.0 - 31.0 PG) 28.4 MCHC (33.0 - 37.0 G/DL) 33.1 RDW (11.5 - 14.5 %) 13.7 Plt Count (130 - 400 /CUMM) 401 H MPV (7.4 - 10.4 FL) 8.4 Gran % (42.2 - 75.2 %) 66.4 Lymphocytes % (20.5 - 51.1 %) 14.3 L Monocytes % (1.7 - 9.3 %) 9.9 H Eosinophils % (0 - 5 %) 8.2 H Basophils % (0.0 - 2.0 %) 1.2 Absolute Granulocytes (1.4 - 6.5 /CUMM) 6.2 Absolute Lymphocytes (1.2 - 3.4 /CUMM) 1.3 Absolute Monocytes (0.10 - 0.60 /CUMM) 0.9 H Absolute Eosinophils (0.0 - 0.7 /CUMM) 0.8 Absolute Basophils (0.0 - 0.2 /CUMM) 0.1 01/21 1845 Coagulation APTT (25 - 37 SEC) 37
--- NOTE | 2018-01-23 10:13 | RADIOLOGY REPORT ---
EXAMINATION: XR ABDOMEN CLINICAL INDICATION: IVC filter placement in the OR. COMPARISON: CT abdomen 01/19/2015. TECHNIQUE: Multiple fluoroscopic images were provided for intraoperative guidance for IVC filter placement by Dr. Guerra. Fluoroscopy time: 1 minute 40 seconds Number of images: 3 fluoro runs and 1 spot view FINDINGS: Infrarenal IVC filter placement with retrievable filter. IMPRESSION: Retrievable IVC filter placement. Refer to operative notes for details.
--- NOTE | 2018-01-23 12:17 | CT SCAN REPORT ---
EXAMINATION: CT ABDOMEN AND PELVIS WITH CONTRAST CLINICAL INFORMATION: Colon mass on colonoscopy. Rectal bleeding. Liver nodules on previous imaging. Evaluate colon mass and liver nodule. COMPARISON: Ultrasound of the abdomen dated 01/17/2018. CTA of the chest dated 01/15/2018. CT scan of the abdomen dated 01/19/2013. CT scan of the abdomen and pelvis dated 11/26/2014. TECHNIQUE: Multidetector CT volumetric acquisition of the abdomen and pelvis was performed after the administration of 94 mL of intravenous Optiray 320. The data set was reformatted in the sagittal and coronal planes and reviewed on an independent workstation. DLP: 865.32 mGy-cm. FINDINGS: LOWER CHEST: Pleural-based reticular nodular opacities in the lateral basal segment of left lower lobe noted, possibly due to atelectasis. Included lung bases otherwise unremarkable. LIVER, GALLBLADDER, BILIARY TREE: Liver normal size and attenuation. There are at least 4 abnormal hypoenhancing solid liver masses seen, suspicious for metastatic disease, largest of which is a subcapsular segment 4B mass measuring 3.9 x 5.0 cm (series 2, image 22). Additional mass in segment 5/6 (series 2, image 28) measures 1.2 x 1.1 cm, subcapsular mass in segment 7 (series 2, image 14) measures 1.8 x 1.4 cm and mass in segment 2 (series 2, image 14) measures 1.0 x 0.6 cm. No intra-or extrahepatic ductal dilatation. Hepatic and portal veins patent (see pancreas section below). Gallbladder partially distended and filled with dense material as seen on the previous ultrasound, likely sludge. No gallbladder wall thickening or pericholecystic fluid. PANCREAS: Pancreatic head poorly evaluated due to extensive peripancreatic, periportal, periceliac axis, and portacaval low-attenuation adenopathy, with the largest lymph node masses measuring approximately 2.9 x 4.9 cm and 2.2 x 3.2 cm. There is extrinsic compression of the mid portal vein by the adenopathy. No pancreatic ductal dilatation, definite pancreatic mass, or surrounding stranding. SPLEEN: Normal size and appearance. 1 cm accessory splenule seen in the splenic hilum. Splenic vein patent. ADRENAL GLANDS AND KIDNEYS: Adrenal glands normal. Kidneys bilaterally symmetric in size and function. There is a partially exophytic 1.8 x 1.6 cm low-attenuation mass in the upper pole of the right kidney (series 2, image 23), a 1.8 x 1.3 cm low-attenuation mass in the lower pole of the right kidney (series 2, image 36), and a 0.9 x 0.8 cm low-attenuation mass in the mid right kidney (series 2, image 33), not adequately assessed on this exam but similar to the older CT scan from 01/19/2015, suggesting cysts. In the mid left kidney, a 0.5 cm low-attenuation mass is seen (series 2, image 33), unchanged, likely also a tiny cyst. No hydronephrosis, nephrolithiasis or perinephric stranding. URETERS AND BLADDER: Ureters decompressed and within normal limits. Bladder partially distended and within normal limits. PELVIC ORGANS: Coarse calcifications within the central gland of the prostate are noted. Seminal vesicles bilaterally are symmetric. GASTROINTESTINAL TRACT: Moderate sigmoid colonic diverticulosis with no evidence of acute diverticulitis. Abnormal circumferential segmental thickening of the hepatic flexure is seen extending over a length of approximately 6.7 cm (series 2, image 38), suspicious for a colon cancer. There is an adjacent bilobed low-attenuation mass (series 2, image 34), measuring 2.6 x 5.2 cm, suspicious for large mesenteric lymph node metastasis. Other smaller mesenteric lymph nodes are also seen. Small and large bowel loops remain decompressed, and no evidence of bowel obstruction or perforation is seen. Appendix is not visualized. LYMPHATIC STRUCTURES: As discussed in the various sections above, there is extensive bulky low attenuation adenopathy seen in the abdomen, including in the periportal, peripancreatic, periceliac axis regions, as well as in the right upper quadrant colonic mesentery. There is abnormal retroperitoneal adenopathy with aortocaval lymph nodes seen, measuring up to 2.6 cm in short axis, above, at, and slightly below the level of the renal diallo. There is an abnormal 2.0 x 1.5 cm low-attenuation lymph node in the left inguinal region just deep to the skin. VASCULAR STRUCTURES: An IVC filter is in place with tip below the level of the left renal vein. Abdominal aorta normal in caliber with moderate atherosclerotic calcifications. No periaortic collections. BONES: Scattered thoracolumbar vertebral spondylosis. No suspicious bone findings. IMPRESSION: 1. Large hepatic flexure mass is seen suspicious for a colon cancer. This appears to be widely metastatic with large mesenteric lymph nodes, retroperitoneal and upper abdominal lymph nodes, and suspected hepatic metastases seen. 2. No evidence of bowel obstruction or perforation. 3. Large amounts of dense material within the gallbladder, likely sludge. Gallbladder otherwise unremarkable. 4. Multiple bilateral renal masses, incompletely characterized on this exam, but similar to older exams and most likely small cysts.
[2018-01-23 14:16] VITALS: BP 140/68
[2018-01-23 19:48] LABS: PTT 72 SEC (25-37)
[2018-01-23 22:21] VITALS: BP 138/68
[2018-01-24 06:49] VITALS: BP 120/62
--- NOTE | 2018-01-24 07:25 | PN- Housestaff ---
Casi CORTES,Meagan 01/24/18 0725: Subjective Follow-up For: Colon Mass with liver mets Bilateral lower extremity DVt Bilateral PE Tele-Events Since Last Visit: Off telemetry Subjective: Patient resting comfortably, denies any active complaints. Review of Systems Constitutional: Reports: no symptoms. EENTM: Reports: no symptoms. Cardiovascular: Reports: no symptoms. Respiratory: Reports: no symptoms. Gastrointestinal: Reports: no symptoms. Genitourinary: Reports: no symptoms. Musculoskeletal: Reports: no symptoms. Skin: Reports: no symptoms. Neurological/Psychological: Reports: no symptoms. Hematologic/Endocrine: Reports: no symptoms. Immunologic/Allergic: Reports: no symptoms. Objective Last 24 Hrs of Vital Signs/I&O Vital Signs Date Time Temp Pulse Resp B/P B/P Pulse O2 O2 Flow FiO2 Mean Ox Delivery Rate 01/24 0649 98.0 84 20 120/62 97 Room Air 01/23 2221 98.8 85 20 138/68 98 Room Air 01/23 1416 98.3 86 20 140/68 97 Room Air Intake & Output 01/24 1600 01/24 0800 01/24 0000 Intake Total 270 Output Total Balance 270 Intake, IV 270 Patient 227 lb Weight Weight Bed scale Measurement Method Physical Exam General Appearance: Alert, Oriented X3, Cooperative, No Acute Distress Skin: No Rashes, No Breakdown Cardiovascular: Regular Rate, Normal S1, Normal S2 Lungs: Clear to Auscultation Abdomen: Normal Bowel Sounds, Soft, No Tenderness Extremities: No Clubbing, No Cyanosis, No Edema Current Medications: Current Medications Sig/Natalee Start time Last Medication Dose Route Stop Time Status Admin Acetaminophen 650 MG Q4P PRN 01/21 0800 AC 01/22 PO 1707 Amlodipine Besylate 5 MG DAILY 01/21 1000 AC 01/23 PO 0952 Dextrose/Sodium 1,000 ML Q13H 01/24 0845 AC Chloride IV Diclofenac Sodium 1 RAFIA 4 TIMES/DAY PRN 01/21 0800 AC 01/23 TOP 2106 Heparin Sodium 25,000 UNIT Q24H 01/21 1130 DC 01/23 (Porcine) IV 01/24 07 2320 Sodium Chloride 500 ML Lidocaine 1 PAT DAILY 01/21 1000 AC EXT Losartan Potassium 100 MG DAILY 01/21 1000 AC 01/23 PO 0951 Morphine Sulfate 2 MG Q4P PRN 01/21 0800 AC IV Pantoprazole Sodium 40 MG BID 01/21 2200 AC 01/23 IV 2102 Sodium Chloride 2 SPRAY Q4P PRN 01/20 1630 AC BEAU Zolpidem Tartrate 5 MG AT BEDTIME 01/20 2200 AC 01/23 PO 2102 Last 24 Hrs of Lab/Marlon Results Last 24 Hrs of Labs/Mics: Laboratory Tests 01/24/18 0630: Anion Gap 15, Estimated GFR > 60, BUN/Creatinine Ratio 8.0, APTT 94 H, CBC w Diff NO MAN DIFF REQ, RBC 3.06 L, MCV 86.2, MCH 27.9, MCHC 32.3 L, RDW 13.6, MPV 8.5, Gran % 71.7, Lymphocytes % 11.6 L, Monocytes % 7.5, Eosinophils % 8.1 H, Basophils % 1.1, Absolute Granulocytes 6.0, Absolute Lymphocytes 1.0 L, Absolute Monocytes 0.6, Absolute Eosinophils 0.7, Absolute Basophils 0.1 01/23/18 1755: APTT 72 H Assessment/Plan Assessment: Mr. 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 Probelm list; 1. Colon mass with metastatic liver lesion 2. Bialteral Lower Extremity DVTs and Bilateral PE s/p IVC Filter placement 3. Hx of hypertension and hyperlipidemia - Patient will follow for a hemicolectomy today. We will follow surgical recommendations regarding restarting heparin after the surgery. - Patient will be discharged on oral anticoagulation(lovenox or coumadin) for his recent bilateral PE. - Will check for KRAS, BRAF and MSI mutations. - Appreciate general surgery recommendations - Appreciate Hemoccult recommendations - Continue home medications. DVT prophylaxis: IV heparin Patient is full code Problem List: 1. Gastrointestinal bleeding 2. Colon malignancy 3. Liver lesion 4. DVT (deep venous thrombosis) 5. Pulmonary emboli Pain Ratin Pain Location: None Pain Goal: Remain pain free Pain Plan: Pain pathway Tomorrow's Labs & Rationales: CBC, BEP(Post Op) Adams CORTES,Hema 01/24/18 1122: Attending MD Review Statement Attending Statement Attending MD Statement: examined this patient, discuss w/resident/PA/DISTRIBUTOR OF DIRECTORIES, agreed w/resident/PA/DISTRIBUTOR OF DIRECTORIES, reviewed EMR data (avail), discussed with nursing, discussed with case mgmt, amended to note Attending Assessment/Plan: Patient seen and examined. Resting comfortably and not in any acute distress. No issues overnight. IVC filter was placed successfully yesterday. He is scheduled today to undergo a hemicolectomy by the surgical service. He is doing well this morning and offers no complaints. Denies any abdominal pain. On examination abdomen is soft and nontender. Hemoglobin level remained stable with no further drop. Recommendations: -Heparin infusion is on hold in anticipation of surgical intervention later on today. -Follow-up with surgical service regarding when heparin can be resumed postoperatively. -Please follow-up with the pathology lab to send tumor markers is recommended by the oncology service. -If patient does well postoperatively over the weekend he may be discharged home Saturday to follow-up with the oncology service as an outpatient.
--- NOTE | 2018-01-24 07:54 | PN- Oncology ---
Subjective Subjective: He is aggitated this morning due to everyone repeating the same information about his malignant. He tolerated the IVC placement yesterday. He is back on heparin drip and stable. He has had his CT scan. He is tentatively scheduled for palliative hemicolectomy today. Review of Systems Constitutional: Denies: chills, fever, weakness. Cardiovascular: Denies: chest pain. Gastrointestinal: Denies: abdominal pain. Genitourinary: Denies: dysuria, hematuria. Musculoskeletal: Denies: back pain. Skin: Denies: erythema. Neurological/Psychological: Reports: see HPI. Hematologic/Endocrine: Denies: bruising, bleeding. All Other Systems: Reviewed and Negative Objective Vital Signs and I&Os Vital Signs Date Time Temp Pulse Resp B/P B/P Pulse O2 O2 Flow FiO2 Mean Ox Delivery Rate 01/24 0649 98.0 84 20 120/62 97 Room Air 01/23 2221 98.8 85 20 138/68 98 Room Air 01/23 1416 98.3 86 20 140/68 97 Room Air 01/23 0952 84 122/64 01/23 0951 84 122/64 Intake & Output 01/24 0000 01/23 1600 01/23 0801/23 0000 01/22 1600 Intake Total 550 408 650 400 Output Total Balance 550 408 650 400 Intake, IV 200 308 275 Intake, Oral 350 100 375 400 Number 0 3 Bowel Movements Patient 102.965 kg 104.326 kg Weight Weight Bed scale Bed scale Measurement Method Physical Exam General Appearance: well developed/nourished, no apparent distress, alert, awake , comfortable Head: atraumatic, normal appearance Respiratory: normal breath sounds, chest non-tender, no respiratory distress Cardiovascular: regular rate/rhythm Abdomen: normal bowel sounds, soft, non-tender Extremities: no edema Neurologic/Psychiatric: awake, alert, oriented x 3 Skin: intact, normal color, warm/dry Current Medications: Current Medications Sig/Natalee Start time Last Medication Dose Route Stop Time Status Admin Acetaminophen 650 MG Q4P PRN 01/21 08 AC 01/22 PO 1707 Amlodipine Besylate 5 MG DAILY 01/21 1000 AC 01/23 PO 0952 Diclofenac Sodium 1 RAFIA 4 TIMES/DAY PRN 01/21 0800 AC 01/23 TOP 2106 Fentanyl Citrate 100 MCG .STK-MED ONE 01/23 0743 DC IM 01/23 0744 Heparin Sodium 25,000 UNIT Q24H 01/21 1130 DC 01/23 (Porcine) IV 01/24 0700 2320 Sodium Chloride 500 ML Lidocaine 1 PAT DAILY 01/21 1000 AC EXT Losartan Potassium 100 MG DAILY 01/21 1000 AC 01/23 PO 0951 Midazolam HCl 4 MG .STK-MED ONE 01/23 0743 DC IM 01/23 0744 Morphine Sulfate 2 MG Q4P PRN 01/21 0800 AC IV Pantoprazole Sodium 40 MG BID 01/21 2200 AC 01/23 IV 2103 Sodium Chloride 2 SPRAY Q4P PRN 01/20 1630 AC BEAU Zolpidem Tartrate 5 MG AT BEDTIME 01/20 2200 AC 01/23 PO 2103 Results Last 24 Hours of Lab Results: Laboratory Tests 01/24 01/23 0630 1755 Chemistry Sodium Pending Potassium Pending Chloride Pending Carbon Dioxide Pending Anion Gap Pending BUN Pending Creatinine Pending BUN/Creatinine Ratio Pending Coagulation APTT (25 - 37 SEC) Pending 72 H Hematology CBC w Diff Pending WBC Pending RBC Pending Hgb Pending Hct Pending MCV Pending MCH Pending MCHC Pending RDW Pending Plt Count Pending MPV Pending Recent Imaging Studies: LOWER CHEST: Pleural-based reticular nodular opacities in the lateral basal segment of left lower lobe noted, possibly due to atelectasis. Included lung bases otherwise unremarkable. LIVER, GALLBLADDER, BILIARY TREE: Liver normal size and attenuation. There are at least 4 abnormal hypoenhancing solid liver masses seen, suspicious for metastatic disease, largest of which is a subcapsular segment 4B mass measuring 3.9 x 5.0 cm (series 2, image 22). Additional mass in segment 5/6 (series 2, image 28) measures 1.2 x 1.1 cm, subcapsular mass in segment 7 (series 2, image 14) measures 1.8 x 1.4 cm and mass in segment 2 (series 2, image 14) measures 1.0 x 0.6 cm. No intra-or extrahepatic ductal dilatation. Hepatic and portal veins patent (see pancreas section below). Gallbladder partially distended and filled with dense material as seen on the previous ultrasound, likely sludge. No gallbladder wall thickening or pericholecystic fluid. PANCREAS: Pancreatic head poorly evaluated due to extensive peripancreatic, periportal, periceliac axis, and portacaval low-attenuation adenopathy, with the largest lymph node masses measuring approximately 2.9 x 4.9 cm and 2.2 x 3.2 cm. There is extrinsic compression of the mid portal vein by the adenopathy. No pancreatic ductal dilatation, definite pancreatic mass, or surrounding stranding. SPLEEN: Normal size and appearance. 1 cm accessory splenule seen in the splenic hilum. Splenic vein patent. ADRENAL GLANDS AND KIDNEYS: Adrenal glands normal. Kidneys bilaterally symmetric in size and function. There is a partially exophytic 1.8 x 1.6 cm low- attenuation mass in the upper pole of the right kidney (series 2, image 23), a 1.8 x 1.3 cm low-attenuation mass in the lower pole of the right kidney (series 2, image 36), and a 0.9 x 0.8 cm low-attenuation mass in the mid right kidney (series 2, image 33), not adequately assessed on this exam but similar to the older CT scan from 01/19/2015, suggesting cysts. In the mid left kidney, a 0.5 cm low-attenuation mass is seen (series 2, image 33), unchanged, likely also a tiny cyst. No hydronephrosis, nephrolithiasis or perinephric stranding. URETERS AND BLADDER: Ureters decompressed and within normal limits. Bladder partially distended and within normal limits. PELVIC ORGANS: Coarse calcifications within the central gland of the prostate are noted. Seminal vesicles bilaterally are symmetric. GASTROINTESTINAL TRACT: Moderate sigmoid colonic diverticulosis with no evidence of acute diverticulitis. Abnormal circumferential segmental thickening of the hepatic flexure is seen extending over a length of approximately 6.7 cm (series 2, image 38), suspicious for a colon cancer. There is an adjacent bilobed low- attenuation mass (series 2, image 34), measuring 2.6 x 5.2 cm, suspicious for large mesenteric lymph node metastasis. Other smaller mesenteric lymph nodes are also seen. Small and large bowel loops remain decompressed, and no evidence of bowel obstruction or perforation is seen. Appendix is not visualized. LYMPHATIC STRUCTURES: As discussed in the various sections above, there is extensive bulky low attenuation adenopathy seen in the abdomen, including in the periportal, peripancreatic, periceliac axis regions, as well as in the right upper quadrant colonic mesentery. There is abnormal retroperitoneal adenopathy with aortocaval lymph nodes seen, measuring up to 2.6 cm in short axis, above, at, and slightly below the level of the renal diallo. There is an abnormal 2.0 x 1.5 cm low-attenuation lymph node in the left inguinal region just deep to the skin. VASCULAR STRUCTURES: An IVC filter is in place with tip below the level of the left renal vein. Abdominal aorta normal in caliber with moderate atherosclerotic calcifications. No periaortic collections. BONES: Scattered thoracolumbar vertebral spondylosis. No suspicious bone findings. IMPRESSION: 1. Large hepatic flexure mass is seen suspicious for a colon cancer. This appears to be widely metastatic with large mesenteric lymph nodes, retroperitoneal and upper abdominal lymph nodes, and suspected hepatic metastases seen. 2. No evidence of bowel obstruction or perforation. 3. Large amounts of dense material within the gallbladder, likely sludge. Gallbladder otherwise unremarkable. 4. Multiple bilateral renal masses, incompletely characterized on this exam, but similar to older exams and most likely small cysts. Assessment/Plan Assessment/Recommendations: Mr. Salter is a 67-year-old male with recent admission on 01/15/2018-01/18/2018 with diagnosis of bilateral lower extremity DVT and bilateral pulmonary embolism been treated with rituximab, hypertension, hyperlipidemia, alcohol abuse with pancreatitis, vocal cord polyp and back pain due to cervical degenerative joint disease who presents hospital with blood in stool. EGD and colonoscopy were done on 01/22/2018. Colonoscopy demonstrated a large ulcerated fungating mass involving the ileocecal valve. Ultrasound during the last admission demonstrated possible 2 liver lesions with portal adenopathy. CT of the abdomen and pelvis were done yesterday and demonstrated large hepatic flexure mass, lymphadenopathy in the mesenteric lymph nodes, retroperitoneal and upper abdominal lymph nodes, and hepatic metastases. He has had IVC filter in place. Hemoglobin seems stable. Due to bilateral PE, he will need to be on anticoagulation. He will undergo palliative resection of colonic mass due to bleeding. He will get liver biopsy at that time. Tumor will need to be evaluated for KRAS, BRAF, and MSI. He will follow up as outpatient to discuss management of likely colonic malignancy. Ileocecal mass likely malignant: -general surgery evaluation with likely hemicolectomy for recurrent bleeding -tumor for KRAS, BRAF, and MSI -follow up as outpatient Bilateral PE/DVT: -heparin drip and likely transition of enoxaparin after discharge Please call [phone] with any questions or concerns. Problem List: 1. 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 Colon malignancy 4. Liver lesion 5. DVT (deep venous thrombosis) 6. Pulmonary emboli
[2018-01-24 07:59] LABS: ABSOLUTE BASOPHIL COUNT 0.1 /CUMM (0.0-0.2); ABSOLUTE EOSINOPHIL COUNT 0.7 /CUMM (0.0-0.7); ABSOLUTE MONOCYTE COUNT 0.6 /CUMM (0.10-0.60); BASOPHIL % 1.1 % (0.0-2.0); EOSINOPHIL % 8.1 % (0-5); GRANULOCYTE % 71.7 % (42.2-75.2); HEMATOCRIT 26.4 % (42-52); MEAN CORPUSCULAR HGB 27.9 PG (27.0-31.0); MEAN CORPUSCULAR HGB CONC 32.3 G/DL (33.0-37.0); MEAN CORPUSCULAR VOLUME 86.2 FL (80.0-94.0); MEAN PLATELET VOLUME 8.5 FL (7.4-10.4); PLATELET COUNT 457 /CUMM (130-400); RBC DISTRIBUTION WIDTH 13.6 % (11.5-14.5); RED BLOOD CELL CT 3.06 /CUMM (4.70-6.10); WHITE BLOOD CELL COUNT 8.3 /CUMM (4.8-10.8)
[2018-01-24 08:28] LABS: PTT 94 SEC (25-37)
[2018-01-24 14:32] VITALS: BP 130/52
--- NOTE | 2018-01-24 21:48 | PN- General Surgery ---
Subjective Subjective: POSTOP CHECK sleepy, some abd pain, no n/v, +uo via hitchcock. no oob. no cp/sob Objective Vital Signs and I&Os Vital Signs Date Time Temp Pulse Resp B/P B/P Pulse O2 O2 Flow FiO2 Mean Ox Delivery Rate 01/24 1432 98.9 83 18 130/52 99 Room Air 01/24 0649 98.0 84 20 120/62 97 Room Air Intake & Output 01/24 1600 01/24 0800 01/24 0000 01/23 1600 01/23 0800 01/23 0000 Intake Total 225 270 550 408 650 Output Total Balance 225 270 550 408 650 Intake, IV 225 270 200 308 275 Intake, Oral 350 100 375 Number 0 Bowel Movements Patient 227 lb Weight Weight Bed scale Measurement Method Physical Exam: GEN: NAD CARD: S1S2 RRR PULM: CTAB ABD: soft, ttp, incision dressed- cdi. quiet bs EXT: calves soft nt URO: clear yellow urine in hitchcock Assessment/Plan Assessment/Plan A- POD0 sp extended right colectomy, excisional liver biopsy, stable postop with appropriate pain and ngt/hitchcock in place, await return bowel fxn P- prn pain meds IVF NPO NGT OOB, ambulate Hold Hep gtt (and all anticoag) until OK'ed by Dr. Patiño home meds dc hitchcock in am will valentin attending
[2018-01-24 22:00] VITALS: BP 148/66
[2018-01-25] VITALS (8 sets, daily range): BP systolic 126–158; BP diastolic 48–70
[2018-01-25 08:35] LABS: ABSOLUTE BASOPHIL COUNT 0 /CUMM (0.0-0.2); ABSOLUTE EOSINOPHIL COUNT 0 /CUMM (0.0-0.7); ABSOLUTE LYMPH COUNT 0.7 /CUMM (1.2-3.4); BASOPHIL % 0.2 % (0.0-2.0); EOSINOPHIL % 0.1 % (0-5)
--- NOTE | 2018-01-25 08:45 | PN- Housestaff ---
Subjective Follow-up For: Colon Mass with liver mets Bilateral lower extremity DVt Bilateral PE Tele-Events Since Last Visit: Off telemetry Subjective: Was seen and examined at bedside, complaint of abdominal pain especially when moving, no acute events overnight, he underwent right hemicolectomy yesterday, excisional liver biopsy this morning Review of Systems Constitutional: Reports: see HPI. Objective Last 24 Hrs of Vital Signs/I&O Vital Signs Date Time Temp Pulse Resp B/P B/P Pulse O2 O2 Flow FiO2 Mean Ox Delivery Rate 01/25 1526 97.8 89 20 126/48 96 01/25 1235 97.8 89 20 126/48 96 01/25 1114 83 138/66 01/25 1114 83 138/66 01/25 0817 98 Nasal 1.0L Cannula 01/25 0817 98.0 83 18 138/66 98 Nasal 1.0L Cannula 01/25 0200 98.2 92 18 128/66 96 Nasal 1.0L Cannula 01/25 0200 98.2 96 18 140/68 97 Nasal 2.0L Cannula 01/25 0020 98.1 95 16 130/68 97 Nasal 3.0L Cannula 01/25 0000 97 Nasal 3.0L Cannula 01/24 2200 97.8 96 18 148/66 97 Nasal 3.0L Cannula Intake & Output 01/25 1600 01/25 0800 01/25 0000 Intake Total 950 700 Output Total 820 700 Balance 130 0 Intake, IV 950 700 Output, 20 Gastric Drainage Output, Urine 800 700 Patient 221 lb Weight Weight Bed scale Measurement Method Physical Exam General Appearance: Alert, Oriented X3, Cooperative, No Acute Distress HEENT: Atraumatic, PERRLA, EOMI, Mucous Membr. moist/pink Neck: Supple, No JVD Cardiovascular: Normal S1, Normal S2, No Murmurs Lungs: Clear to Auscultation Abdomen: Normal Bowel Sounds, Soft, No Tenderness Neurological: Normal Speech, Strength at 5/5 X4 Ext Extremities: No Clubbing, No Cyanosis, No Edema Vascular: Normal Pulses Assessment/Plan Assessment: Mr. 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 Probelm list; 1. Colon mass with metastatic liver lesion 2. Bialteral Lower Extremity DVTs and Bilateral PE s/p IVC Filter placement 3. Hx of hypertension and hyperlipidemia Plan -N.p.o. with nasogastric tube suction -Start heparin drip 25,000 units as per surgery recommendation -Hold p.o. antihypertensives -IV hydralazine 10 mg q. 8 as needed for blood pressure over 170, can increase the dose if still hypertensive -Pain controlled with IV morphine, IV Tylenol [id number] - Patient will be discharged on oral anticoagulation(lovenox or coumadin) for his recent bilateral PE. - Will check for KRAS, BRAF and MSI mutations. - Appreciate general surgery recommendations - Appreciate hematology recommendations - Continue home medications. DVT prophylaxis: IV heparin Patient is full code Problem List: 1. Colon malignancy 2. Liver lesion Pain Ratin Pain Location: Abdomen Pain Goal: Remain pain free Pain Plan: pathway Tomorrow's Labs & Rationales: cbc bep
--- NOTE | 2018-01-25 09:22 | PN- Att Addend ---
Attending Addendum Attending Brief Note Patient seen and examined. He underwent right hemicolectomy yesterday and excisional liver biopsy this morning he is lying in bed. Complains of abdominal discomfort. Hemodynamically stable. Vital Signs Date Time Temp Pulse Resp B/P B/P Pulse O2 O2 Flow FiO2 Mean Ox Delivery Rate 01/25 0817 98 Nasal 1.0L Cannula 01/25 0817 98.0 83 18 138/66 98 Nasal 1.0L Cannula 01/25 0200 98.2 92 18 128/66 96 Nasal 1.0L Cannula 01/25 0200 98.2 96 18 140/68 97 Nasal 2.0L Cannula 01/25 0020 98.1 95 16 130/68 97 Nasal 3.0L Cannula 01/25 0000 97 Nasal 3.0L Cannula 01/24 2200 97.8 96 18 148/66 97 Nasal 3.0L Cannula 01/24 1432 98.9 83 18 130/52 99 Room Air General appearance: Not in respiratory distress. Heart: S1-S2 regular Lungs: Clear bilaterally Abdomen: Intact surgical dressing along the midline. No blood stains. Abdomen is soft, mild diffuse tenderness. No rebound. No guarding. Bowel sounds are hypoactive. Extremities: No pedal edema. Laboratory Tests 01/25/18 0612: Anion Gap 12, Estimated GFR > 60, BUN/Creatinine Ratio 10.0, CBC w Diff Pending, WBC Pending, RBC Pending, Hgb Pending, Hct Pending, MCV Pending, MCH Pending, MCHC Pending, RDW Pending, Plt Count Pending, MPV Pending Microbiology 01/24 1700 URINE ROUT: Urine Culture - RECD Problems: 1. Colon cancer(biopsy results from colonoscopy shows poorly differentiated adenocarcinoma) with likely liver metastasis. 2. Recently diagnosed lower extremity DVT and PE. 3. Hypertension Plan: -Patient currently n.p.o. with NG tube to suction. Follow-up surgical recommendations. -Continue current pain management regimen with IV morphine. Add on IV Tylenol [id number] in addition to optimize pain control. -Hold heparin infusion pending clearance from the surgical service. Patient currently has an IVC filter in place. Lower extremity sequential compression device. -While he is n.p.o. hold his oral antihypertensive medications. Administer hydralazine 25 mg IV every 8 hours as needed for systolic blood pressure greater than 170.
[2018-01-25 09:35] LABS: ABSOLUTE MONOCYTE COUNT 1.2 /CUMM (0.10-0.60); HEMATOCRIT 25.3 % (42-52); MEAN CORPUSCULAR HGB 27.8 PG (27.0-31.0); MEAN CORPUSCULAR HGB CONC 32.1 G/DL (33.0-37.0); MEAN CORPUSCULAR VOLUME 86.6 FL (80.0-94.0); MEAN PLATELET VOLUME 8.6 FL (7.4-10.4); PLATELET COUNT 384 /CUMM (130-400); RBC DISTRIBUTION WIDTH 13.8 % (11.5-14.5); RED BLOOD CELL CT 2.92 /CUMM (4.70-6.10)
--- NOTE | 2018-01-25 22:42 | PN- General Surgery ---
Subjective Subjective: POD 1, sleepy, sore, not yet OOB, no CP SOB nausea Objective Vital Signs and I&Os I rev Vital Signs Date Time Temp Pulse Resp B/P B/P Pulse O2 O2 Flow FiO2 Mean Ox Delivery Rate 01/25 1550 98.1 90 20 140/56 91 01/25 1526 97.8 89 20 126/48 96 01/25 1235 97.8 89 20 126/48 96 01/25 1114 83 138/66 01/25 1114 83 138/66 01/25 0817 98 Nasal 1.0L Cannula 01/25 0817 98.0 83 18 138/66 98 Nasal 1.0L Cannula 01/25 0200 98.2 92 18 128/66 96 Nasal 1.0L Cannula 01/25 0200 98.2 96 18 140/68 97 Nasal 2.0L Cannula 01/25 0020 98.1 95 16 130/68 97 Nasal 3.0L Cannula 01/25 0000 97 Nasal 3.0L Cannula I rev Intake & Output 01/25 1600 01/25 0800 01/25 0000 01/24 1600 01/24 0800 01/24 0000 Intake Total 950 700 225 270 Output Total 820 700 Balance 130 0 225 270 Intake, IV 950 700 225 270 Output, 20 Gastric Drainage Output, Urine 800 700 Patient 221 lb 227 lb Weight Weight Bed scale Bed scale Measurement Method Physical Exam: Constitutional: no acute distress no pain Eyes: sclera anicteric ENMT: moist mucous membranes Cardiovascular: S1-S2 no murmurs no peripheral edema Respiratory: clear to auscultation with normal respiratory effort and no intercostal retractions GI: abdomen soft nondistended, incision dressing dry Extremities / lymphatics: free range of motion no peripheral edema Skin: no jaundice no rashes warm, nondiaphoretic Psychiatric: mood and affect are appropriate and alert and oriented to person place and time Current Medications: I revi Current Medications Sig/Natalee Start time Last Medication Dose Route Stop Time Status Admin Acetaminophen 1,000 MG Q8 01/25 1400 AC 01/25 N/A 1 UNIT IV 2212 Acetaminophen 650 MG Q4P PRN 01/21 0800 DC 01/22 PO 1707 Amlodipine Besylate 5 MG DAILY 01/21 1000 DC 01/23 PO 0952 Ampicillin Sodium/ 1,500 MG Q6 01/24 2359 DC 01/25 Sulbactam Sodium IV 01/25 1229 1054 Sodium Chloride 100 ML Dextrose/Sodium 1,000 ML Q13H 01/24 0845 AC 01/25 Chloride IV 1604 Diclofenac Sodium 1 RAFIA 4 TIMES/DAY PRN 01/21 0800 AC 01/23 TOP 2106 Heparin Sodium 25,000 UNIT Q24H 01/25 1500 AC 01/25 (Porcine) IV 1549 Sodium Chloride 500 ML Hydralazine HCl 10 MG Q8 PRN 01/25 1452 AC IV Hydralazine HCl 10 MG Q8 PRN 01/25 1200 DC IV Lidocaine 1 PAT DAILY 01/21 1000 AC EXT Losartan Potassium 100 MG DAILY 01/21 1000 DC 01/23 PO 0951 Morphine Sulfate 2 MG Q2-3 HRS NEEDED.. 01/24 2015 AC 01/25 IV 1100 Pantoprazole Sodium 40 MG BID 01/21 220 AC 01/25 IV 2208 Sodium Chloride 2 SPRAY Q4P PRN 01/20 1630 AC BEAU Zolpidem Tartrate 5 MG AT BEDTIME 01/20 220 AC 01/23 PO 2103 Results Last 48 Hours of Labs: I rev Laboratory Tests 01/25 01/25 2220 0612 Chemistry Sodium (137 - 145 mmol/L) 139 Potassium (3.5 - 5.1 mmol/L) 4.1 Chloride (98 - 107 mmol/L) 101 Carbon Dioxide (22 - 30 mmol/L) 26 Anion Gap (5 - 16) 12 BUN (9 - 20 mg/dL) 8 L Creatinine (0.7 - 1.2 mg/dL) 0.8 Estimated GFR (>60 ml/min) > 60 BUN/Creatinine Ratio (7 - 25 %) 10.0 Coagulation APTT Pending Hematology CBC w Diff NO MAN DIFF REQ WBC (4.8 - 10.8 /CUMM) 14.0 H RBC (4.70 - 6.10 /CUMM) 2.92 L Hgb (14.0 - 18.0 G/DL) 8.1 L Hct (42 - 52 %) 25.3 L MCV (80.0 - 94.0 FL) 86.6 MCH (27.0 - 31.0 PG) 27.8 MCHC (33.0 - 37.0 G/DL) 32.1 L RDW (11.5 - 14.5 %) 13.8 Plt Count (130 - 400 /CUMM) 384 MPV (7.4 - 10.4 FL) 8.6 Gran % (42.2 - 75.2 %) 86.0 H Lymphocytes % (20.5 - 51.1 %) 4.9 L Monocytes % (1.7 - 9.3 %) 8.8 Eosinophils % (0 - 5 %) 0.1 Basophils % (0.0 - 2.0 %) 0.2 Absolute Granulocytes (1.4 - 6.5 /CUMM) 12.0 H Absolute Lymphocytes (1.2 - 3.4 /CUMM) 0.7 L Absolute Monocytes (0.10 - 0.60 /CUMM) 1.2 H Absolute Eosinophils (0.0 - 0.7 /CUMM) 0 Absolute Basophils (0.0 - 0.2 /CUMM) 0 03/02 0630 Chemistry Sodium (137 - 145 mmol/L) 140 Potassium (3.5 - 5.1 mmol/L) 3.8 Chloride (98 - 107 mmol/L) 101 Carbon Dioxide (22 - 30 mmol/L) 24 Anion Gap (5 - 16) 15 BUN (9 - 20 mg/dL) 8 L Creatinine (0.7 - 1.2 mg/dL) 1.0 Estimated GFR (>60 ml/min) > 60 BUN/Creatinine Ratio (7 - 25 %) 8.0 Coagulation APTT (25 - 37 SEC) 94 H Hematology CBC w Diff NO MAN DIFF REQ WBC (4.8 - 10.8 /CUMM) 8.3 RBC (4.70 - 6.10 /CUMM) 3.06 L Hgb (14.0 - 18.0 G/DL) 8.5 L Hct (42 - 52 %) 26.4 L MCV (80.0 - 94.0 FL) 86.2 MCH (27.0 - 31.0 PG) 27.9 MCHC (33.0 - 37.0 G/DL) 32.3 L RDW (11.5 - 14.5 %) 13.6 Plt Count (130 - 400 /CUMM) 457 H MPV (7.4 - 10.4 FL) 8.5 Gran % (42.2 - 75.2 %) 71.7 Lymphocytes % (20.5 - 51.1 %) 11.6 L Monocytes % (1.7 - 9.3 %) 7.5 Eosinophils % (0 - 5 %) 8.1 H Basophils % (0.0 - 2.0 %) 1.1 Absolute Granulocytes (1.4 - 6.5 /CUMM) 6.0 Absolute Lymphocytes (1.2 - 3.4 /CUMM) 1.0 L Absolute Monocytes (0.10 - 0.60 /CUMM) 0.6 Absolute Eosinophils (0.0 - 0.7 /CUMM) 0.7 Absolute Basophils (0.0 - 0.2 /CUMM) 0.1 Assessment/Plan Assessment/Plan Typical course postop day 1 no signs of active bleeding Hb stable encouraged out of bed may restart heparin drip no bolus Problem List: 1. 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 Colon malignancy 4. Pulmonary emboli Core Measures Venous Thromboembolism VTE Risk Factors VTE (Previous) No Mechanical VTE Prophylaxis d/t N/A MechProphylax Ordered No VTE Pharm Prophylaxis d/t Bleeding (Active)
[2018-01-25 23:17] LABS: PTT 36 SEC (25-37)
[2018-01-26 06:00] VITALS: BP 134/72
[2018-01-26 08:26] LABS: PTT 52 SEC (25-37)
--- NOTE | 2018-01-26 08:39 | PN- Housestaff ---
Subjective Follow-up For: Colon Mass with liver mets s/p R colectomy Bilateral lower extremity DVT s/p IVC filter Bilateral PE Subjective: Patient reports abdominal pain overnight that subsided with pain meds. Review of Systems Constitutional: Reports: see HPI. Objective Last 24 Hrs of Vital Signs/I&O Vital Signs Date Time Temp Pulse Resp B/P B/P Pulse O2 O2 Flow FiO2 Mean Ox Delivery Rate 01/26 0600 97.7 73 20 134/72 96 01/25 2308 99.2 96 18 152/64 92 Room Air 01/25 2300 98.5 92 18 158/70 92 01/25 2235 92 Room Air 01/25 1550 98.1 90 20 140/56 91 01/25 1526 97.8 89 20 126/48 96 01/25 1235 97.8 89 20 126/48 96 03 1114 83 138/66 01/25 1114 83 138/66 Intake & Output 01/26 1600 01/26 0800 01/26 0000 Intake Total 940 280 Output Total 1000 525 Balance -60 -245 Intake, IV 940 280 Output, 250 Gastric Drainage Output, Urine 750 525 Patient 225 lb 226 lb Weight Weight Bed scale Measurement Method Physical Exam General Appearance: Alert, Oriented X3, Cooperative, No Acute Distress Cardiovascular: Regular Rate, Normal S1, Normal S2, No Murmurs Lungs: Clear to Auscultation, Normal Air Movement Abdomen: abdominal surgical incision dressing intact without drainage, hematoma or warmth Extremities: No Edema Current Medications: Current Medications Sig/Natalee Start time Last Medication Dose Route Stop Time Status Admin Acetaminophen 1,000 MG Q8 01/25 1400 AC 01/26 N/A 1 UNIT IV 0645 Acetaminophen 650 MG Q4P PRN 01/21 0800 DC 01/22 PO 1707 Amlodipine Besylate 5 MG DAILY 01/21 1000 DC 01/23 PO 0952 Ampicillin Sodium/ 1,500 MG Q6 01/24 2359 DC 01/25 Sulbactam Sodium IV 01/25 1229 1054 Sodium Chloride 100 ML Dextrose/Sodium 1,000 ML Q13H 01/24 0845 AC 01/26 Chloride IV 0234 Diclofenac Sodium 1 RAFIA 4 TIMES/DAY PRN 01/21 0800 AC 01/23 TOP 2106 Heparin Sodium 10,000 UNIT .STK-MED ONE 01/26 0044 DC (Porcine) IV 01/26 0045 Heparin Sodium 7,687 UNIT BOLUS ONE 01/26 0040 DC 01/26 (Porcine) IV 01/26 0041 0101 Heparin Sodium 25,000 UNIT Q24H 01/25 1500 AC 01/25 (Porcine) IV 1549 Sodium Chloride 500 ML Hydralazine HCl 10 MG Q8 PRN 01/25 1452 AC IV Hydralazine HCl 10 MG Q8 PRN 01/25 1200 DC IV Lidocaine 1 PAT DAILY 01/21 1000 AC EXT Losartan Potassium 100 MG DAILY 01/21 1000 DC 01/23 PO 0951 Morphine Sulfate 2 MG Q2-3 HRS NEEDED.. 01/24 2015 AC 01/26 IV 0459 Pantoprazole Sodium 40 MG BID 01/21 220 AC 01/26 IV 0828 Sodium Chloride 2 SPRAY Q4P PRN 01/20 1630 AC BEAU Zolpidem Tartrate 5 MG AT BEDTIME 01/20 2200 AC 01/23 PO 2103 Last 24 Hrs of Lab/Marlon Results Last 24 Hrs of Labs/Mics: Laboratory Tests 01/26/18 0643: Anion Gap 11, Estimated GFR > 60, BUN/Creatinine Ratio 6.3 L, APTT 52 H, CBC w Diff NO MAN DIFF REQ, RBC 2.93 L, MCV 84.8, MCH 28.1, MCHC 33.1, RDW 14.0, MPV 8.7, Gran % 80.2 H, Lymphocytes % 8.3 L, Monocytes % 5.6, Eosinophils % 5.4 H , Basophils % 0.5, Absolute Granulocytes 11.3 H, Absolute Lymphocytes 1.2, Absolute Monocytes 0.8 H, Absolute Eosinophils 0.8, Absolute Basophils 0.1 01/25/18 2220: APTT 36 Lines/Diet/Fluids Catheters/Tubes: NG Assessment/Plan Assessment: Mr. 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 Probelm list: 1. Colon mass with metastatic liver lesion s/p R colectomy 2. Bialteral Lower Extremity DVTs and Bilateral PE s/p IVC Filter placement 3. Hx of hypertension and hyperlipidemia Plan: * Monitor white count * Discontinue NGT as per surgery * Keep nothing by mouth as per surgery, will most likely advance tomorrow * Surgery recommendations appreciated * Vascular recommendations appreciated * Oncology recommendations appreciated * GI recommendations appreciated Problem List: 1. Colon malignancy 2. Liver lesion Pain Ratin Pain Location: NA Pain Goal: Remain pain free Pain Plan: Morphine, Lidoderm, Tylenol, diclofenac Tomorrow's Labs & Rationales: CBC for white count BEP for potassium
[2018-01-26 08:51] LABS: ABSOLUTE BASOPHIL COUNT 0.1 /CUMM (0.0-0.2); ABSOLUTE EOSINOPHIL COUNT 0.8 /CUMM (0.0-0.7); ABSOLUTE GRANULOCYTE CT 11.3 /CUMM (1.4-6.5); ABSOLUTE LYMPH COUNT 1.2 /CUMM (1.2-3.4); ABSOLUTE MONOCYTE COUNT 0.8 /CUMM (0.10-0.60); BASOPHIL % 0.5 % (0.0-2.0); EOSINOPHIL % 5.4 % (0-5); GRANULOCYTE % 80.2 % (42.2-75.2); HEMATOCRIT 24.8 % (42-52); MEAN CORPUSCULAR HGB 28.1 PG (27.0-31.0); MEAN CORPUSCULAR HGB CONC 33.1 G/DL (33.0-37.0); MEAN CORPUSCULAR VOLUME 84.8 FL (80.0-94.0); MEAN PLATELET VOLUME 8.7 FL (7.4-10.4); PLATELET COUNT 433 /CUMM (130-400); RED BLOOD CELL CT 2.93 /CUMM (4.70-6.10); WHITE BLOOD CELL COUNT 14.1 /CUMM (4.8-10.8)
--- NOTE | 2018-01-26 10:21 | PN- Att Addend ---
Attending Addendum Attending Brief Note Patient seen and examined. Sitting up in bed. Complains of some abdominal discomfort. Reports improvement with use of analgesic regimen. Denies nausea or vomiting. Denies shortness of breath or palpitations. NG tube remains in place to suction. NG tube output over 24 hours was documented as 20 yesterday. However so far today he has 250 cc documented. Vital Signs Date Time Temp Pulse Resp B/P B/P Pulse O2 O2 Flow FiO2 Mean Ox Delivery Rate 01/26 0600 97.7 73 20 134/72 96 01/25 2308 99.2 96 18 152/64 92 Room Air 01/25 2300 98.5 92 18 158/70 92 01/25 2235 92 Room Air 01/25 1550 98.1 90 20 140/56 91 01/25 1526 97.8 89 20 126/48 96 01/25 1235 97.8 89 20 126/48 96 03 1114 83 138/66 03 1114 83 138/66 General appearance: Well-developed. Not in respiratory distress. Heart: S1-S2 regular Lungs: Clear to auscultation bilaterally. Abdomen: Nondistended, soft, hypoactive bowel sounds. Intact surgical dressing. Extremities: No pedal edema bilaterally. Skin: Intact. Laboratory Tests 01/26/18 0643: Anion Gap 11, Estimated GFR > 60, BUN/Creatinine Ratio 6.3 L, APTT 52 H, CBC w Diff NO MAN DIFF REQ, RBC 2.93 L, MCV 84.8, MCH 28.1, MCHC 33.1, RDW 14.0, MPV 8.7, Gran % 80.2 H, Lymphocytes % 8.3 L, Monocytes % 5.6, Eosinophils % 5.4 H , Basophils % 0.5, Absolute Granulocytes 11.3 H, Absolute Lymphocytes 1.2, Absolute Monocytes 0.8 H, Absolute Eosinophils 0.8, Absolute Basophils 0.1 01/25/18 2220: APTT 36 Problems: 1. Colon cancer(biopsy results from colonoscopy shows poorly differentiated adenocarcinoma) with likely liver metastasis. 2. Recently diagnosed lower extremity DVT and PE. 3. Hypertension 4. Leukocytosis; likely reactive following surgery. No evidence of infectious process at present. Plan: -Continue current pain regimen. -Surgical service is clear patient for reinitiation of heparin infusion for his thromboembolic disease. -Follow-up with surgical service regarding when diet may be advanced. -If his n.p.o. status is going to be prolonged may consider administering TPN at that time. For now we will await further recommendations from the surgical service. -Hemoglobin level is stable. -Blood pressure remains stable off his antihypertensive medications. Administer hydralazine as needed for elevated blood pressure.
[2018-01-26 14:55] VITALS: BP 152/70
[2018-01-26 18:31] LABS: PTT 55 SEC (25-37)
--- NOTE | 2018-01-26 19:15 | PN- General Surgery ---
See Addendum Subjective Subjective: pt sitting in bad, feeling significantly better since his NGT was removed earlier today by Dr Comer. Minimal pain. Denies nausea. Still no flatus. Ambulating. voiding. using IS. Denies Cp/sob, fever Objective Vital Signs and I&Os Vital Signs Date Time Temp Pulse Resp B/P B/P Pulse O2 O2 Flow FiO2 Mean Ox Delivery Rate 01/26 1455 98.8 96 18 152/70 95 Room Air 01/26 0600 97.7 73 20 134/72 96 01/25 2308 99.2 96 18 152/64 92 Room Air 01/25 2300 98.5 92 18 158/70 92 01/25 2235 92 Room Air Intake & Output 01/26 1600 01/26 0801/26 0000 01/25 1600 01/25 0800 01/25 0000 Intake Total 1150 940 280 950 700 Output Total 800 1000 525 820 700 Balance 350 -60 -245 130 0 Intake, IV 1000 940 280 950 700 Intake, Oral 0 Intake, Other 150 Output, 250 20 Gastric Drainage Output, Urine 800 750 525 800 700 Patient 225 lb 226 lb 221 lb Weight Weight Bed scale Bed scale Measurement Method Physical Exam: gen- nad, much better spirits resp- clear cardio-rrr abd- ND, +BS, soft, appropriately tender around incision. dressing clean and dry ext- pulses equal 2+PT pulse bilat. no edema Assessment/Plan Assessment/Plan 67yo M SP extended right colectomy POD2, excisional liver biopsy, stable. Awaiting return of bowel function. NGT remved today per Dr. Comer request NPO for now, as long as pt isnt nauseous overnight, will likely advance to clear liquid diet in am prn pain meds IVF OOB, ambulate Hep gtt home meds will dw attending Core Measures Venous Thromboembolism VTE Risk Factors VTE (Previous) No Mechanical VTE Prophylaxis d/t N/A MechProphylax Ordered No VTE Pharm Prophylaxis d/t Bleeding (Active)
[2018-01-26 21:19] VITALS: BP 164/68
--- NOTE | 2018-01-26 21:48 | Operative Report ---
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 Using the preoperative CT as a guide and planning to access the liver for biopsy we aimed a midline incision supraumbilical ending about 5 cm below the xiphoid, about 16 cm total length Incision was made with a 10 blade then deepened with cautery through Jarvis's fascia clearing off the linea alba first then carefully incising it avoiding injury to the underlying bowel. The abdomen was explored there was no free fluid peritoneal studding . You could see an obvious liver metastases behind the gallbladder medially. The tumor was obvious in the mid transverse colon and the underlying mesentery seemed by palpation to be a continuation of the tumor encasing the middle colic vein practically to its origin with a palpable pulse just medial. The cecum was grasped and then retracted towards the incision, opening up the lateral and posterior attachments to the retroperitoneum with cautery including those to the terminal ileum and appendix continuing the retraction superiorly and mobilizing inferiorly and a little medially as well and then continuing laterally up towards the hepatic flexure along the white line of Toldt. Here cares taken to avoid injury to the ureter and gonadal vessels which are identified and left alone in a deeper plane This is continued back and forth mostly with cautery and a little bit of blunt dissection in the avascular areas until it starts to come up off Gerota's fascia and then the duodenum, the higher you get cares taken to avoid pulling because of the tension on the middle colic vessels. Next the hepatic flexure is taken down with the aid of LigaSure where it's more vascular and care is taken to distinguish between an separate the mesocolon and the omentum here. A point on the distal transverse colon is marked lightly with cautery and the omentum is divided here as well. On the other end, the terminal ileum was similarly marked just proximal to Treve's sail fold and in both areas, a small window was made on the mesenteric border to lane the lines of transection of the mesentery. Where it was supple the intervening mesentery was divided with LigaSure and also 2-0 Vicryl suture ligature for the ileocolic vessels but the middle colic was encased as mentioned above, we could also feel the enlarged portal nodes, There was edema at this level also around the duodenum. We could not peel or pull up those notes off the origin which was close to the SMV on the inferior border of the pancreas so making sure we had enough room for suture, we cut across the solid mass of nodes as high as possible there were vessels there and we oversewed them with 2-0 Vicryl suture and we inspected this numerous times to closure to make sure it wasn't bleeding. Next a side to side functional end to end stapled anastomosis was made using a KASSI stapler with two 80 mm cartridges, the first to make a common enterotomy, and the second to "T" -off the first. Before actually firing the stapler first we made sure that the distal small bowel and transverse colon are lined up parallel not twisted or stretched and that the mesenteric fat is cleared off circumferentially where the carmelo will go, we placed a 3-0 silk suture at the top and at the bottom to line them up, then make adjacent enterotomies on the antimesenteric borders inserted the stapler check that fat hasn't rolled in posteriorly, and fired. The second firing which completes the anastomosis and the resection, is checked for hemostasis with cautery but also the corners are dunked with 3-0 silk Lemberts. Next the abdomen is irrigated checked for hemostasis small bowel is run and checked for any twisting and positioned down and away from the mesenteric defect , repeatedly checking the anastomosis for any bleeding or twisting. We had Surgicel and chose a spot on the liver metastasis to cut a wedge of tissue out right next to the medial border of the gallbladder this hole oozed initially but then stopped and we laced some omentum over the hole. The position of the NG tube was checked and then the incision is closed in layers using 2 continuous runs of single 1 Maxon suture for the fascia then the subcutaneous layer is irrigated again, reapproximated subdermally with interrupted 3-0 Vicryl, followed by skin carmelo and an island dressing. EBL minimal lap and sponge counts correct wound expectancy was clean- contaminated, IV fluids crystalloid complications none, patient tolerated the procedure well and was returned to the recovery room in satisfactory condition.
[2018-01-27 01:28] LABS: PTT 77 SEC (25-37)
[2018-01-27 05:53] VITALS: BP 158/82
--- NOTE | 2018-01-27 07:37 | PN- Oncology ---
Subjective Subjective: He feels better today. He has not passed gas. He feels hungry. He denies any new pain. He is status post extended right hemicolectomy and open wedge biopsy of liver mass on 01/26/2018. Review of Systems Constitutional: Denies: chills, fever. Cardiovascular: Denies: chest pain. Gastrointestinal: Denies: abdominal pain. Musculoskeletal: Denies: back pain. Neurological/Psychological: Denies: anxiety, confusion. Hematologic/Endocrine: Denies: bruising, bleeding. All Other Systems: Reviewed and Negative Objective Vital Signs and I&Os Vital Signs Date Time Temp Pulse Resp B/P B/P Pulse O2 O2 Flow FiO2 Mean Ox Delivery Rate 01/27 0553 98.7 89 16 158/82 96 Room Air 01/26 2119 98.4 92 16 164/68 95 Room Air 01/26 1455 98.8 96 18 152/70 95 Room Air Intake & Output 01/27 0800 / 0000 01/26 1600 01/26 0800 01/26 0000 01/25 1600 Intake Total 642 201 0674 940 280 950 Output Total 800 1000 525 820 Balance 750 370 350 -60 -245 130 Intake, IV 587 782 0637 940 280 950 Intake, Oral 0 Intake, Other 150 Output, 250 20 Gastric Drainage Output, Urine 800 750 525 800 Patient 101.775 kg 102.058 kg 102.512 kg Weight Weight Bed scale Measurement Method Physical Exam: General Appearance: well developed/nourished, no apparent distress, alert, awake , comfortable Head: atraumatic, normal appearance Respiratory: normal breath sounds, chest non-tender, no respiratory distress Cardiovascular: regular rate/rhythm Abdomen: normal bowel sounds, soft, tender, midline dressing in place. Extremities: no edema Neurologic/Psychiatric: awake, alert, oriented x 3 Skin: intact, normal color, warm/dry Current Medications: Current Medications Sig/Natalee Start time Last Medication Dose Route Stop Time Status Admin Acetaminophen 1,000 MG Q8 01/25 1400 AC 01/27 N/A 1 UNIT IV 0557 Dextrose/Sodium 1,000 ML Q20H 01/26 1415 AC 01/27 Chloride IV 0559 Dextrose/Sodium 1,000 ML Q13H 01/24 0845 DC 01/26 Chloride IV 0234 Diclofenac Sodium 1 RAFIA 4 TIMES/DAY PRN 01/21 0800 AC 01/23 TOP 2106 Heparin Sodium 25,000 UNIT .STK-MED ONE 01/26 1054 DC (Porcine) IV 01/26 1055 Heparin Sodium 25,000 UNIT Q24H 01/25 1500 AC 01/26 (Porcine) IV 2348 Sodium Chloride 500 ML Hydralazine HCl 10 MG Q8 PRN 01/25 1452 AC IV Lidocaine 1 PAT DAILY 01/27 1000 DC EXT Lidocaine 1 PAT DAILY 01/26 1445 AC EXT Lidocaine 1 PAT DAILY 01/21 1000 DC EXT Morphine Sulfate 2 MG Q2-3 HRS NEEDED.. 01/24 2015 AC 01/26 IV 0459 Pantoprazole Sodium 40 MG BID 01/26 220 AC 01/26 IV 2105 Pantoprazole Sodium 40 MG BID 01/21 2200 DC 01/26 IV 0828 Sodium Chloride 2 SPRAY Q4P PRN 01/20 1630 AC BEAU Zolpidem Tartrate 5 MG AT BEDTIME 01/20 220 AC 01/27 PO 0042 Results Last 24 Hours of Lab Results: Laboratory Tests 01/27 01/27 01/26 0607 0049 1600 Chemistry Sodium Pending Potassium Pending Chloride Pending Carbon Dioxide Pending Anion Gap Pending BUN Pending Creatinine Pending BUN/Creatinine Ratio Pending Coagulation APTT (25 - 37 SEC) 77 H 55 H Hematology CBC w Diff Pending WBC Pending RBC Pending Hgb Pending Hct Pending MCV Pending MCH Pending MCHC Pending RDW Pending Plt Count Pending MPV Pending Assessment/Plan Assessment/Recommendations: Mr. Salter is a 67-year-old male with recent admission on 01/15/2018-01/18/2018 with diagnosis of bilateral lower extremity DVT and bilateral pulmonary embolism been treated with rituximab, hypertension, hyperlipidemia, alcohol abuse with pancreatitis, vocal cord polyp and back pain due to cervical degenerative joint disease who presents hospital with blood in stool. EGD and colonoscopy were done on 01/22/2018. Colonoscopy demonstrated a large ulcerated fungating mass involving the ileocecal valve. Ultrasound during the last admission demonstrated possible 2 liver lesions with portal adenopathy. CT of the abdomen and pelvis demonstrated large hepatic flexure mass, lymphadenopathy in the mesenteric lymph nodes, retroperitoneal and upper abdominal lymph nodes, and hepatic metastases. He has had IVC filter in place. He is status post extended right hemicolectomy and open wedge liver biopsy on 01/26/2018. Pathology is pending. KRAS, BRAF, and MSI pending. He is on heparin drip and is stable. He will need anticoagulation. He will likely need enoxaparin and transition back to oral anticoagulant once recovered from surgery. Metastatic adenocarcinoma of the colon: -follow up pathology from liver biopsy -follow up recent KRAS, BRAF, and MSI evaluation -follow up as outpatient Bilateral PE/DVT: -s/p IVC filter -heparin drip and likely transition of enoxaparin after discharge Please call [phone] with any questions or concerns. Problem List: 1. 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 DVT (deep venous thrombosis) 4. Liver lesion 5. Adenocarcinoma of colon metastatic to liver
--- NOTE | 2018-01-27 07:45 | PN- Housestaff ---
Subjective Follow-up For: - Poorly differentiated AdenoCa of Colon with Liver mets s/p right hemicolectomy - Bilateral Lower Ext PE and bialteral PE s/p IVC filter placement Tele-Events Since Last Visit: Off Telemetry Subjective: PAtient resting comfortably in bed, denies any fever,chills, abdominalpain except for tenderness at the incision site or nausea/vomiting and would want something to eat since he has not eaten properly for almost 1 week now. Review of Systems Constitutional: Reports: no symptoms. EENTM: Reports: no symptoms. Cardiovascular: Reports: no symptoms. Respiratory: Reports: no symptoms. Gastrointestinal: Reports: abdominal pain (at the incision site only). Genitourinary: Reports: no symptoms. Musculoskeletal: Reports: no symptoms. Skin: Reports: no symptoms. Neurological/Psychological: Reports: no symptoms. Hematologic/Endocrine: Reports: no symptoms. Immunologic/Allergic: Reports: no symptoms. Objective Last 24 Hrs of Vital Signs/I&O Vital Signs Date Time Temp Pulse Resp B/P B/P Pulse O2 O2 Flow FiO2 Mean Ox Delivery Rate 01/27 0553 98.7 89 16 158/82 96 Room Air 01/26 2119 98.4 92 16 164/68 95 Room Air / 1455 98.8 96 18 152/70 95 Room Air Intake & Output 01/27 1600 01/27 0800 01/27 0000 Intake Total 750 370 Output Total Balance 750 370 Intake, IV 750 370 Patient 224 lb Weight Physical Exam General Appearance: Alert, Oriented X3, Cooperative, No Acute Distress Skin: No Rashes, No Breakdown Cardiovascular: Regular Rate, Normal S1, Normal S2 Lungs: Clear to Auscultation Abdomen: Normal Bowel Sounds, Soft, No Tenderness Extremities: No Clubbing, No Cyanosis, No Edema, Normal Pulses Current Medications: Current Medications Sig/Antalee Start time Last Medication Dose Route Stop Time Status Admin Acetaminophen 1,000 MG Q8 01/25 1400 AC 01/27 N/A 1 UNIT IV 0557 Dextrose/Sodium 1,000 ML Q20H 01/26 1415 AC 01/27 Chloride IV 0559 Diclofenac Sodium 1 RAFIA 4 TIMES/DAY PRN 01/21 0800 AC 01/23 TOP 2106 Heparin Sodium 25,000 UNIT Q24H 01/25 1500 AC 01/26 (Porcine) IV 2348 Sodium Chloride 500 ML Hydralazine HCl 10 MG TID 01/27 1000 AC 01/27 PO 1139 Hydralazine HCl 10 MG Q8 PRN 01/25 1452 DC IV Insulin Aspart 0 TIDAC 01/27 1200 AC SC Lidocaine 1 PAT DAILY 01/27 1000 DC EXT Lidocaine 1 PAT DAILY 01/26 1445 AC EXT Morphine Sulfate 2 MG Q2-3 HRS NEEDED.. 01/24 2015 AC 01/26 IV 0459 Pantoprazole Sodium 40 MG BID 01/26 220 AC 01/27 IV 1131 Potassium Chloride 40 MEQ ONCE ONE 01/27 1000 DC 01/27 PO 01/27 1001 1130 Sodium Chloride 2 SPRAY Q4P PRN 01/20 1630 AC BEAU Zolpidem Tartrate 5 MG AT BEDTIME 01/20 220 AC 01/27 PO 0042 Last 24 Hrs of Lab/Marlon Results Last 24 Hrs of Labs/Mics: Laboratory Tests 01/27/18 1305: APTT 72 H 01/27/18 0607: Anion Gap 10, Estimated GFR > 60, BUN/Creatinine Ratio 6.3 L, CBC w Diff NO MAN DIFF REQ, RBC 3.02 L, MCV 85.1, MCH 28.4, MCHC 33.4, RDW 13.7, MPV 8.6, Gran % 78.2 H, Lymphocytes % 7.9 L, Monocytes % 4.9, Eosinophils % 8.5 H, Basophils % 0.5, Absolute Granulocytes 12.8 H, Absolute Lymphocytes 1.3, Absolute Monocytes 0.8 H, Absolute Eosinophils 1.4, Absolute Basophils 0.1 01/27/18 0049: APTT 77 H 01/26/18 1600: APTT 55 H Assessment/Plan Assessment: Mr. 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 Probelm list: 1. Colon mass with metastatic liver lesion s/p R colectomy 2. Bialteral Lower Extremity DVTs and Bilateral PE s/p IVC Filter placement 3. Leukocytosis 4. Hx of hypertension and hyperlipidemia Plan: - Right Hemicolectomy POD # 3. Patient started on clear liquid diet, will advance as tolerated. - Continue IV Heparin, likely transition to Lovenox on D/C. - White count slightly trending up, no obvious current source of infection. Will Continue to monitor. - Oncology and Surgery recommendations appreciated. DVT prophylaxis; IV Heparin Patient is full codePatient is full code Problem List: 1. Colon malignancy 2. Adenocarcinoma of colon metastatic to liver 3. DVT (deep venous thrombosis) 4. Pulmonary emboli Pain Ratin Pain Location: Abdominal Incision Site Pain Goal: Remain pain free Pain Plan: Pain Pathway Tomorrow's Labs & Rationales: BEP(hypokalemia), CBC (Leukocytosis)
[2018-01-27 08:07] LABS: ABSOLUTE BASOPHIL COUNT 0.1 /CUMM (0.0-0.2); ABSOLUTE EOSINOPHIL COUNT 1.4 /CUMM (0.0-0.7); ABSOLUTE GRANULOCYTE CT 12.8 /CUMM (1.4-6.5); ABSOLUTE LYMPH COUNT 1.3 /CUMM (1.2-3.4); ABSOLUTE MONOCYTE COUNT 0.8 /CUMM (0.10-0.60); BASOPHIL % 0.5 % (0.0-2.0); EOSINOPHIL % 8.5 % (0-5); GRANULOCYTE % 78.2 % (42.2-75.2); HEMATOCRIT 25.7 % (42-52); MEAN CORPUSCULAR HGB 28.4 PG (27.0-31.0); MEAN CORPUSCULAR HGB CONC 33.4 G/DL (33.0-37.0); MEAN CORPUSCULAR VOLUME 85.1 FL (80.0-94.0); MEAN PLATELET VOLUME 8.6 FL (7.4-10.4); PLATELET COUNT 412 /CUMM (130-400); RBC DISTRIBUTION WIDTH 13.7 % (11.5-14.5); RED BLOOD CELL CT 3.02 /CUMM (4.70-6.10); WHITE BLOOD CELL COUNT 16.4 /CUMM (4.8-10.8)
[2018-01-27 08:44] VITALS: BP 166/84
--- NOTE | 2018-01-27 08:44 | PN- Att Addend ---
Attending Addendum Attending Brief Note Patient seen and examined. Resting comfortably and not in any distress. NGT removed by the surgical service with plans for lear fluids today. Patient reports passing gas. Denies abdominal pain. No N/V. He is being transferred to the medical floor today. Vital Signs Date Time Temp Pulse Resp B/P B/P Pulse O2 O2 Flow FiO2 Mean Ox Delivery Rate 01/27 0553 98.7 89 16 158/82 96 Room Air / 2119 98.4 92 16 164/68 95 Room Air / 1455 98.8 96 18 152/70 95 Room Air Gen; Not in any distress. Heart: S1, S2 RRR Lungs: CTA bilaterally Abd: Soft, non-tender, BS + Ext: Trace edema bilateraly Current Medications Sig/Natalee Start time Last Medication Dose Route Stop Time Status Admin Acetaminophen 1,000 MG Q8 01/25 1400 AC 01/27 N/A 1 UNIT IV 0557 Dextrose/Sodium 1,000 ML Q20H 01/26 1415 AC 01/27 Chloride IV 0559 Dextrose/Sodium 1,000 ML Q13H 01/24 0845 DC 01/26 Chloride IV 0234 Diclofenac Sodium 1 RAFIA 4 TIMES/DAY PRN 01/21 0800 AC 01/23 TOP 2106 Heparin Sodium 25,000 UNIT .STK-MED ONE 01/26 1054 DC (Porcine) IV 01/26 1055 Heparin Sodium 25,000 UNIT Q24H 01/25 1500 AC 01/26 (Porcine) IV 2348 Sodium Chloride 500 ML Hydralazine HCl 10 MG Q8 PRN 01/25 1452 AC IV Lidocaine 1 PAT DAILY 01/27 1000 DC EXT Lidocaine 1 PAT DAILY 01/26 1445 AC EXT Lidocaine 1 PAT DAILY 01/21 1000 DC EXT Morphine Sulfate 2 MG Q2-3 HRS NEEDED.. 01/24 2015 AC 01/26 IV 0459 Pantoprazole Sodium 40 MG BID 01/26 220 AC 01/26 IV 2105 Pantoprazole Sodium 40 MG BID 01/21 220 DC 01/26 IV 0828 Sodium Chloride 2 SPRAY Q4P PRN 01/20 1630 AC BEAU Zolpidem Tartrate 5 MG AT BEDTIME 01/20 2200 AC 01/27 PO 0042 Laboratory Tests 01/27/18 0607: Anion Gap 10, Estimated GFR > 60, BUN/Creatinine Ratio 6.3 L, CBC w Diff Pending, WBC Pending, RBC Pending, Hgb Pending, Hct Pending, MCV Pending, MCH Pending, MCHC Pending, RDW Pending, Plt Count Pending, MPV Pending 01/27/18 0049: APTT 77 H 01/26/18 1600: APTT 55 H Problems: 1. Colon cancer(biopsy results from colonoscopy shows poorly differentiated adenocarcinoma) with likely liver metastasis. 2. Recently diagnosed lower extremity DVT and PE. 3. Hypertension 4. Leukocytosis; likely reactive following surgery. No evidence of infectious process at present. Plan: - Advance diet as recommended by the surgical service. -Follow up with the surgical service about transitioning back to his oral anti- coagulant. -Mobilize patient. -Follow up pathology report. -Out-patient follow up with the oncology service.
--- NOTE | 2018-01-27 09:29 | PN- General Surgery ---
Subjective Subjective: feeling good, no pain, walking, +voids, no flatus, no bm, no n/v, no belching. excited for clr liquids. Objective Vital Signs and I&Os Vital Signs Date Time Temp Pulse Resp B/P B/P Pulse O2 O2 Flow FiO2 Mean Ox Delivery Rate 01/28 844 98.0 87 20 166/84 96 Room Air 01/27 0553 98.7 89 16 158/82 96 Room Air 01/26 2119 98.4 92 16 164/68 95 Room Air 01/26 1455 98.8 96 18 152/70 95 Room Air Intake & Output 01/27 1600 01/27 0800 01/27 0000 01/26 1600 01/26 0800 01/26 0000 Intake Total 414 591 1657 940 280 Output Total 800 1000 525 Balance 750 370 350 -60 -245 Intake, IV 440 704 1541 940 280 Intake, Oral 0 Intake, Other 150 Output, 250 Gastric Drainage Output, Urine 800 750 525 Patient 224 lb 225 lb 226 lb Weight Weight Bed scale Measurement Method Physical Exam: geb- nad card- s1s2 rrr pulm- ctab abd- soft, mildly ttp at incision, dressed dc'ed- stapleline cdi, quiet bs ext- calves soft nt, no edema Assessment/Plan Assessment/Plan A- POD3 sp r colectomy, liver bx, stable, awating return bowel fxn. P- cont current meds clr liquids. HL once tolerating oob, ambulate hep gtt- ?transition to po agent for dvt/pe will dw attending Core Measures Venous Thromboembolism VTE Risk Factors VTE (Previous) No Mechanical VTE Prophylaxis d/t N/A MechProphylax Ordered No VTE Pharm Prophylaxis d/t Bleeding (Active)
[2018-01-27 14:24] VITALS: BP 160/80
[2018-01-27 14:25] LABS: PTT 72 SEC (25-37)
[2018-01-27 22:38] VITALS: BP 140/70
[2018-01-28 01:38] LABS: PTT 65 SEC (25-37)
[2018-01-28 06:46] VITALS: BP 150/80
--- NOTE | 2018-01-28 07:07 | PN- Housestaff ---
See Addendum Subjective Follow-up For: colon cancer with metastasis s/p hemicolectomy Subjective: No overnight events. PAtients tolerated clear liquid diet well and has passed flatulence. No BM yet. He has some incisional pain but not terrible and is well controlled. He walked with PT yesterday and is ok going home self care. Review of Systems Constitutional: Reports: no symptoms. EENTM: Reports: no symptoms. Cardiovascular: Reports: no symptoms. Respiratory: Reports: no symptoms. Gastrointestinal: Reports: see HPI. Genitourinary: Reports: no symptoms. Musculoskeletal: Reports: no symptoms. Skin: Reports: no symptoms. Neurological/Psychological: Reports: no symptoms. Hematologic/Endocrine: Reports: no symptoms. Immunologic/Allergic: Reports: no symptoms. Objective Last 24 Hrs of Vital Signs/I&O Vital Signs Date Time Temp Pulse Resp B/P B/P Pulse O2 O2 Flow FiO2 Mean Ox Delivery Rate 01/28 0646 98.2 87 20 150/80 96 Room Air 01/27 2238 98.4 86 18 140/70 96 Room Air 01/27 2232 88 154/70 01/27 1828 89 160/72 / 1424 97.6 83 20 160/80 100 Room Air / 1139 78 158/80 03/ 0844 98.0 87 20 166/84 96 Room Air Intake & Output 01/28 0800 01/28 0000 01/27 1600 Intake Total 496 1000 Output Total Balance 496 1000 Intake, IV 376 600 Intake, Oral 120 400 Number 0 0 Bowel Movements Physical Exam General Appearance: Alert, Oriented X3, Cooperative, No Acute Distress Skin: midline abd incision without erythema, induration, or drainage HEENT: Atraumatic Cardiovascular: Regular Rate, Normal S1, Normal S2 Lungs: Clear to Auscultation Abdomen: Normal Bowel Sounds, Soft, mildly tender around incision Extremities: No Edema, Normal Pulses Current Medications: Current Medications Sig/Natalee Start time Last Medication Dose Route Stop Time Status Admin Acetaminophen 1,000 MG Q8 01/25 1400 AC 01/28 N/A 1 UNIT IV 0551 Dextrose/Sodium 1,000 ML Q20H 01/26 1415 DC 01/27 Chloride IV 0559 Diclofenac Sodium 1 RAFIA 4 TIMES/DAY PRN 01/21 0800 AC 01/23 TOP 2106 Heparin Sodium 25,000 UNIT Q24H 01/25 1500 AC 01/28 (Porcine) IV 0343 Sodium Chloride 500 ML Hydralazine HCl 10 MG TID 01/27 1000 AC 01/27 PO 2232 Hydralazine HCl 10 MG Q8 PRN 01/25 1452 DC IV Insulin Aspart 0 TIDAC 01/27 1200 AC SC Lidocaine 1 PAT DAILY 01/27 1000 DC EXT Lidocaine 1 PAT DAILY 01/26 1445 AC EXT Morphine Sulfate 2 MG Q2-3 HRS NEEDED.. 01/24 2015 AC 01/26 IV 0459 Pantoprazole Sodium 40 MG BID 01/26 220 AC 01/27 IV 2232 Potassium Chloride 40 MEQ ONCE ONE 01/27 1000 DC 01/27 PO 01/27 1001 1130 Sodium Chloride 2 SPRAY Q4P PRN 01/20 1630 AC BEAU Zolpidem Tartrate 5 MG AT BEDTIME 01/20 2200 AC 01/27 PO 2232 Last 24 Hrs of Lab/Marlon Results Last 24 Hrs of Labs/Mics: Laboratory Tests 01/28/18 0105: APTT 65 H 01/27/18 1305: APTT 72 H Assessment/Plan Assessment: Mr. Salter is a 67-year-old man with a past medical history of Bilateral lower extremity DVT and Bilateral unprovoked PE (on Rivaroxaban) with recent admission 01/15/18-01/18/18 hypertension, hyperlipidemia, alcohol abuse with pancreatitis, vocal cord polyp and back pain due to cervical degenerative joint disease who was initially admitted to telemetry for GI bleed, found to have metastatic colon cancer after colonoscopy and imaging, now status post hemicolectomy. Probelm list: 1. Stage IV colon cancer with liver metastasis 2. Bialteral Lower Extremity DVTs and Bilateral PE s/p IVC Filter placement #Stage IV colon cancer with liver metastasis: Colonoscopy revealed an ileocecal valve mass. Pathology revealed invasive moderately to poorly differentiated adenocarcinoma. He then underwent right hemicolectomy for bleeding, now POD # 4. Patient tolerated clear liquid diet well yesterday and once his diet to be advanced. He has not had a bowel movement yet -Continue IV Heparin. Switch to oral anticoagulation versus enoxaparin depending on oncology and surgery recommendations -Oncology and Surgery recommendations appreciated. -Pain control -Follow pathology -Outpatient oncology follow-up #Chronic medical problems: -Hold oral hypoglycemics -insulin sliding scale -Continue home medications DVT prophylaxis with heparin Full liquid diet Full code Problem List: 1. Adenocarcinoma of colon metastatic to liver Pain Ratin Pain Location: no Pain Goal: Remain pain free Pain Plan: see a/p Tomorrow's Labs & Rationales: no
[2018-01-28 08:04] LABS: ABSOLUTE BASOPHIL COUNT 0.1 /CUMM (0.0-0.2); ABSOLUTE EOSINOPHIL COUNT 1.5 /CUMM (0.0-0.7); ABSOLUTE GRANULOCYTE CT 10.4 /CUMM (1.4-6.5); ABSOLUTE MONOCYTE COUNT 0.8 /CUMM (0.10-0.60); BASOPHIL % 0.7 % (0.0-2.0); EOSINOPHIL % 10.8 % (0-5); GRANULOCYTE % 75.6 % (42.2-75.2); HEMATOCRIT 24.5 % (42-52); MEAN CORPUSCULAR HGB 27.6 PG (27.0-31.0); MEAN CORPUSCULAR HGB CONC 32.5 G/DL (33.0-37.0); MEAN CORPUSCULAR VOLUME 85.1 FL (80.0-94.0); MEAN PLATELET VOLUME 8.2 FL (7.4-10.4); PLATELET COUNT 399 /CUMM (130-400); RBC DISTRIBUTION WIDTH 13.5 % (11.5-14.5); RED BLOOD CELL CT 2.88 /CUMM (4.70-6.10); WHITE BLOOD CELL COUNT 13.8 /CUMM (4.8-10.8)
--- NOTE | 2018-01-28 09:35 | PN- Oncology ---
Subjective Subjective: He is doing well without any new complaints. He is tolerating his clear diet. He is passing gas. He denies any new pain. He is ready to go home Review of Systems: . Review of Systems Constitutional: Denies: chills, fever. Cardiovascular: Denies: chest pain. Gastrointestinal: Reports: abdominal pain (improving). Hematologic/Endocrine: Denies: bruising, bleeding. All Other Systems: Reviewed and Negative Objective Vital Signs and I&Os Vital Signs Date Time Temp Pulse Resp B/P B/P Pulse O2 O2 Flow FiO2 Mean Ox Delivery Rate 01/28 0646 98.2 87 20 150/80 96 Room Air 01/27 2238 98.4 86 18 140/70 96 Room Air 01/27 2232 88 154/70 01/27 1828 89 160/72 01/27 1424 97.6 83 20 160/80 100 Room Air 01/27 1139 78 158/80 Intake & Output 01/28 1600 01/28 0800 01/28 0000 01/27 1600 01/27 0800 01/27 0000 Intake Total 787 093 7213 750 370 Output Total Balance 025 318 8994 750 370 Intake, IV 456 376 600 750 370 Intake, Oral 240 120 400 Number 0 0 0 Bowel Movements Patient 101.775 kg Weight Physical Exam General Appearance: well developed/nourished, no apparent distress, comfortable Head: atraumatic, normal appearance Respiratory: normal breath sounds, chest non-tender, no respiratory distress Cardiovascular: regular rate/rhythm Abdomen: normal bowel sounds, soft, tenderness Extremities: no edema Skin: normal color Current Medications: Current Medications Sig/Natalee Start time Last Medication Dose Route Stop Time Status Admin Acetaminophen 1,000 MG Q8 01/25 1400 AC 01/28 N/A 1 UNIT IV 0551 Amlodipine Besylate 5 MG DAILY 01/28 1000 AC PO Dextrose/Sodium 1,000 ML Q20H 01/26 1415 DC 01/27 Chloride IV 0559 Diclofenac Sodium 1 RAFIA 4 TIMES/DAY PRN 01/21 0800 AC 01/23 TOP 2106 Heparin Sodium 25,000 UNIT Q24H / 1500 AC 01/28 (Porcine) IV 0343 Sodium Chloride 500 ML Hydralazine HCl 10 MG TID 01/27 1000 DC 01/27 PO 2232 Hydralazine HCl 10 MG Q8 PRN 01/25 1452 DC IV Insulin Aspart 0 TIDAC 01/27 1200 AC SC Lidocaine 1 PAT DAILY 01/27 1000 DC EXT Lidocaine 1 PAT DAILY 01/26 1445 AC EXT Losartan Potassium 100 MG DAILY 01/28 1000 AC PO Morphine Sulfate 2 MG Q2-3 HRS NEEDED.. 01/24 2015 AC 01/26 IV 0459 Pantoprazole Sodium 40 MG BID 01/26 220 AC 01/27 IV 2232 Potassium Chloride 40 MEQ ONCE ONE 01/27 1000 DC 01/27 PO 01/27 1001 1130 Sodium Chloride 2 SPRAY Q4P PRN 01/20 1630 AC BEAU Zolpidem Tartrate 5 MG AT BEDTIME 01/20 2200 AC 01/27 PO 2232 Results Last 24 Hours of Lab Results: Laboratory Tests 01/28 01/28 01/27 0720 0105 1305 Chemistry Sodium (137 - 145 mmol/L) 136 L Potassium (3.5 - 5.1 mmol/L) 3.3 L Chloride (98 - 107 mmol/L) 99 Carbon Dioxide (22 - 30 mmol/L) 26 Anion Gap (5 - 16) 11 BUN (9 - 20 mg/dL) 7 L Creatinine (0.7 - 1.2 mg/dL) 0.7 Estimated GFR (>60 ml/min) > 60 BUN/Creatinine Ratio (7 - 25 %) 10.0 Coagulation APTT (25 - 37 SEC) 65 H 72 H Hematology CBC w Diff NO MAN DIFF REQ WBC (4.8 - 10.8 /CUMM) 13.8 H RBC (4.70 - 6.10 /CUMM) 2.88 L Hgb (14.0 - 18.0 G/DL) 8.0 L Hct (42 - 52 %) 24.5 L MCV (80.0 - 94.0 FL) 85.1 MCH (27.0 - 31.0 PG) 27.6 MCHC (33.0 - 37.0 G/DL) 32.5 L RDW (11.5 - 14.5 %) 13.5 Plt Count (130 - 400 /CUMM) 399 MPV (7.4 - 10.4 FL) 8.2 Gran % (42.2 - 75.2 %) 75.6 H Lymphocytes % (20.5 - 51.1 %) 7.2 L Monocytes % (1.7 - 9.3 %) 5.7 Eosinophils % (0 - 5 %) 10.8 H Basophils % (0.0 - 2.0 %) 0.7 Absolute Granulocytes (1.4 - 6.5 /CUMM) 10.4 H Absolute Lymphocytes (1.2 - 3.4 /CUMM) 1.0 L Absolute Monocytes (0.10 - 0.60 /CUMM) 0.8 H Absolute Eosinophils (0.0 - 0.7 /CUMM) 1.5 Absolute Basophils (0.0 - 0.2 /CUMM) 0.1 Assessment/Plan Assessment/Recommendations: Mr. Salter is a 67-year-old male with recent admission on 01/15/2018-01/18/2018 with diagnosis of bilateral lower extremity DVT and bilateral pulmonary embolism been treated with rituximab, hypertension, hyperlipidemia, alcohol abuse with pancreatitis, vocal cord polyp and back pain due to cervical degenerative joint disease who presents hospital with blood in stool. EGD and colonoscopy were done on 01/22/2018. Colonoscopy demonstrated a large ulcerated fungating mass involving the ileocecal valve. Ultrasound during the last admission demonstrated possible 2 liver lesions with portal adenopathy. CT of the abdomen and pelvis demonstrated large hepatic flexure mass, lymphadenopathy in the mesenteric lymph nodes, retroperitoneal and upper abdominal lymph nodes, and hepatic metastases. He has had IVC filter in place. He is status post extended right hemicolectomy and open wedge liver biopsy on 01/26/2018. Pathology is pending. KRAS, BRAF, and MSI pending. He is on heparin drip and is stable. He will need anticoagulation. He will likely need enoxaparin and transition back to oral anticoagulant once recovered risk of bleeding is lower. He may be transitioned to oral if surgery amenable. He will follow up as outpatient for discussion of treatment. Metastatic adenocarcinoma of the colon: -follow up pathology from liver biopsy and KRAS, BRAF, and MSI evaluation -follow up as outpatient Bilateral PE/DVT: -s/p IVC filter -heparin drip and likely transition of enoxaparin or oral if amenable by surgeon Please call [phone] with any questions or concerns. Problem List: 1. Adenocarcinoma of colon metastatic to liver 2. 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 DVT (deep venous thrombosis) 5. Pulmonary emboli
--- NOTE | 2018-01-28 09:53 | PN- General Surgery ---
See Addendum Subjective Subjective: No acute overnight events reported. Tolerated full liquid diet last night and this am. Anticipates regular diet this am. Is without complaints of chest pain , shortness of breath and difficulty breathing. Is without nausea or vomitting. Has passed flatus. Objective Vital Signs and I&Os Vital Signs Date Time Temp Pulse Resp B/P B/P Pulse O2 O2 Flow FiO2 Mean Ox Delivery Rate 01/28 646 98.2 87 20 150/80 96 Room Air 01/27 2238 98.4 86 18 140/70 96 Room Air 01/27 2232 88 154/70 01/27 1828 89 160/72 01/27 1424 97.6 83 20 160/80 100 Room Air 01/27 1139 78 158/80 Intake & Output 01/28 1600 01/28 0800 01/28 0000 01/27 1600 01/27 0800 01/27 0000 Intake Total 145 898 4452 750 370 Output Total Balance 089 955 7418 750 370 Intake, IV 456 376 600 750 370 Intake, Oral 240 120 400 Number 0 0 0 Bowel Movements Patient 224 lb Weight Physical Exam: General: Alert and oriented x3, no acute distress Cardiac: RRR, s1s2 Pulm: CTA bilaterally, diminished at bialteral bases Abdomen: Soft. No distension. Faviola-incisional tenderness. Wound open to air. [place] intact. No redness. No drainage. Extremities: Moves all extremities, distal sensation grossly intact. Skin warm and well perfused. DP pulses palpable. Bilateral calves non-tender. Assessment/Plan Assessment/Plan This is a 67 year old male, POD 4 s/p hemicolectomy for colon ca with metastatic evidence, biopies and pathology pending. Bowel function appears to be returning. -Regular diet -Discussed anticoagulation with Dr. Patiño. From surgical standpoint it is okay to resume the appropriate anticoagulation to treat his bilateral PE and DVT.
[2018-01-28] MEDS ORDERED: XARELTO10 M1 PO (13:46)
[2018-01-28 15:13] VITALS: BP 132/72
[2018-01-28 21:55] VITALS: BP 136/62
[2018-01-29 05:59] VITALS: BP 118/62
--- NOTE | 2018-01-29 06:50 | PN- Housestaff ---
See Addendum Subjective Follow-up For: Stage IV colon cancer s/p hemicolectomy Subjective: No overnight events. Patient feels physically well this morning but is upset that he has not had a BM yet. He very much wants to leave today. He also reports some back pain associated with laying in bed relieved by acetaminophen. He ate decently yesterday and has continued to pass flatulence. No abd pain, SOB, CP, or other issues. Review of Systems Constitutional: Reports: no symptoms. EENTM: Reports: no symptoms. Cardiovascular: Reports: no symptoms. Respiratory: Reports: no symptoms. Gastrointestinal: Reports: see HPI. Genitourinary: Reports: no symptoms. Musculoskeletal: Reports: no symptoms. Skin: Reports: no symptoms. Neurological/Psychological: Reports: no symptoms. Hematologic/Endocrine: Reports: no symptoms. Immunologic/Allergic: Reports: no symptoms. Objective Last 24 Hrs of Vital Signs/I&O Vital Signs Date Time Temp Pulse Resp B/P B/P Pulse O2 O2 Flow FiO2 Mean Ox Delivery Rate 01/29 0559 98.8 81 20 118/62 97 Room Air 01/28 2155 99.4 96 18 136/62 97 Room Air 01/28 1513 98.1 88 20 132/72 97 Room Air 01/28 1013 87 140/60 01/28 1013 87 140/60 Intake & Output 01/29 0800 01/29 0000 01/28 1600 Intake Total 800 576 Output Total Balance 800 576 Intake, IV 126 Intake, Oral 800 450 Number 0 Bowel Movements Physical Exam General Appearance: Alert, Oriented X3, Cooperative, No Acute Distress Cardiovascular: Regular Rate, Normal S1, Normal S2 Lungs: Clear to Auscultation Abdomen: Normal Bowel Sounds, Soft, No Tenderness, incision clean and dry Extremities: No Edema, Normal Pulses, No Tenderness/Swelling Current Medications: Current Medications Sig/[place] Start time Last Medication Dose Route Stop Time Status Admin Acetaminophen 975 MG Q8P PRN 01/28 1000 AC 01/29 PO 0614 Acetaminophen 1,000 MG Q8 01/25 1400 DC 01/28 N/A 1 UNIT IV 0551 Amlodipine Besylate 5 MG DAILY 01/28 1000 AC 01/28 PO 1013 Diclofenac Sodium 1 RAFIA 4 TIMES/DAY PRN 01/21 0800 AC 01/23 TOP 2106 Docusate Sodium 100 MG DAILY NEEDED PRN 01/29 0500 AC PO Heparin Sodium 25,000 UNIT Q24H 01/25 1500 DC 01/28 (Porcine) IV 0343 Sodium Chloride 500 ML Hydralazine HCl 10 MG TID 01/27 1000 DC 01/27 PO 2232 Insulin Aspart 0 TIDAC 01/27 1200 DC SC Lidocaine 1 PAT DAILY 01/26 1445 AC EXT Losartan Potassium 100 MG DAILY 01/28 1000 AC 01/28 PO 1013 Morphine Sulfate 2 MG Q2-3 HRS NEEDED.. 01/24 2015 AC 01/26 IV 0459 Omeprazole 40 MG DAILY AC 01/28 0952 AC 01/28 PO 1013 Pantoprazole Sodium 40 MG BID 01/26 2200 DC 01/27 IV 2232 Patient Medication 1 ED ONE ONE 01/28 1345 DC 01/28 Teaching ED 01/28 1346 1723 Polyethylene Glycol 17 GM DAILY 01/29 1000 AC PO Potassium Chloride 40 MEQ BID 01/28 1000 DC 01/28 PO 01/28 2201 2127 Rivaroxaban 20 MG DAILY 01/28 1100 AC 01/28 PO 1123 Senna 187 MG AT BEDTIME 01/29 2200 AC PO Sodium Chloride 2 SPRAY Q4P PRN 01/20 1630 AC BEAU Zolpidem Tartrate 5 MG AT BEDTIME 01/20 2200 AC 01/28 PO 2126 Last 24 Hrs of Lab/Marlon Results Last 24 Hrs of Labs/Mics: Laboratory Tests 01/28/18 1400: APTT Cancelled 01/28/18 0720: Anion Gap 11, Estimated GFR > 60, BUN/Creatinine Ratio 10.0, CBC w Diff NO MAN DIFF REQ, RBC 2.88 L, MCV 85.1, MCH 27.6, MCHC 32.5 L, RDW 13.5, MPV 8.2, Gran % 75.6 H, Lymphocytes % 7.2 L, Monocytes % 5.7, Eosinophils % 10.8 H, Basophils % 0.7, Absolute Granulocytes 10.4 H, Absolute Lymphocytes 1.0 L, Absolute Monocytes 0.8 H, Absolute Eosinophils 1.5, Absolute Basophils 0.1 Assessment/Plan Assessment: Mr. Salter is a 67-year-old man with a past medical history of Bilateral lower extremity DVT and Bilateral unprovoked PE (on Rivaroxaban) with recent admission 01/15/18-01/18/18 hypertension, hyperlipidemia, alcohol abuse with pancreatitis, vocal cord polyp and back pain due to cervical degenerative joint disease who was initially admitted to telemetry for GI bleed, found to have metastatic colon cancer after colonoscopy and imaging, now status post hemicolectomy and transfer to [facility] on 01/27/18. Probelm list: 1. Stage IV colon cancer with liver metastasis 2. Bialteral Lower Extremity DVTs and Bilateral PE s/p IVC Filter placement #Stage IV colon cancer with liver metastasis: Colonoscopy revealed an ileocecal valve mass. Pathology revealed invasive moderately to poorly differentiated adenocarcinoma. He then underwent right hemicolectomy for bleeding, now POD #5. He start a regular diet yesterday and tolerated it well. He has not had a bowel movement yet. He can likely be discharged after having a bowel movement. -Continue rivaroxaban -Oncology and Surgery recommendations appreciated. -Pain control -Follow pathology -Outpatient oncology follow-up #Chronic medical problems: -Hold oral hypoglycemics -insulin sliding scale -Continue home medications DVT prophylaxis with heparin Full liquid diet Full code Problem List: 1. Adenocarcinoma of colon metastatic to liver Pain Ratin Pain Location: no Pain Goal: Remain pain free Pain Plan: see a/p Tomorrow's Labs & Rationales: no
--- NOTE | 2018-01-29 07:14 | PN- General Surgery ---
See Addendum Subjective Subjective: POD#5 S/P RIGHT COLECTOMY NO MAJOR ISSUES OVENIGHT DENEIS CP, SOB, NO N+V OR BELCHING WITH REG DIET STARTED YESTERDAY Objective Vital Signs and I&Os Vital Signs Date Time Temp Pulse Resp B/P B/P Pulse O2 O2 Flow FiO2 Mean Ox Delivery Rate / 0559 98.8 81 20 118/62 97 Room Air / 2155 99.4 96 18 136/62 97 Room Air / 1513 98.1 88 20 132/72 97 Room Air / 1013 87 140/60 / 1013 87 140/60 Intake & Output 03/ 0800 03/ 0000 / 1600 / 0800 / 0000 / 1600 Intake Total 800 576 577 478 1710 Output Total Balance 800 576 533 455 5588 Intake, IV 126 456 376 600 Intake, Oral 800 450 240 120 400 Number 0 0 0 0 Bowel Movements Patient 208 lb Weight Physical Exam: CV: RRR LUNGS: CLEAR ABD: SOFT, +BS WOUND C/D/I NO TENDERNESS TO PALP EXT: WARM, NO CALF TENDERNESS CMS INTACT Assessment/Plan Assessment/Plan SURGICAL STABLE PLAN CONT DIET OOB AMBULATE FORM A SURGICAL STANDPOINT WILL SIGN OFF F/U DR JEAN 10 DAYS FOR STAPLE REMOVAL AVAILABLE FOR RECONSULT IF NECESSARY
--- NOTE | 2018-01-29 08:59 | Discharge Summary ---
Visit Information Visit Dates Admission Date: 01/22/18 Discharge Date: 01/29/18 Hospital Course Course Attending Physician: Marisol Vasquez MD Primary Care Physician: Evan Sadler MD Hospital Course: Mr. Salter is a 67-year-old man with a past medical history of bilateral lower extremity DVT and bilateral unprovoked PE (on Rivaroxaban) with recent admission 01/15/18-01/18/18, hypertension, hyperlipidemia, alcohol abuse complicated by pancreatitis, vocal cord polyp and back pain due to cervical degenerative joint disease who was initially admitted to telemetry for GI bleed, found to have metastatic colon cancer after colonoscopy and imaging, now status post hemicolectomy and transfer to [facility] on 01/27/18. On admission, vital signs were T 98.9, HR 85, RR 20, BP 136/65, saturating 100% on room air. Laboratories were significant for multiple cell count 11.7, hemoglobin 9.7, platelets 441, BUN 25, troponin 0.19. He was admitted initially to telemetry and then transferred to general medicine on 01/27/18 and treated for the following problems: 1. Stage IV colon cancer with liver metastasis 2. Bialteral Lower Extremity DVTs and Bilateral PE s/p IVC Filter placement 3. Epistaxis 4. Elevated troponin #Stage IV colon cancer with liver metastasis: The patient presented with rectal bleeding described as red blood in the toilet bowl. His anticoagulation was held and gastroenterology was consulted. The patient was placed on IV proton pump inhibitor. Endoscopy revealed submucosal nodule second portion of the duodenum, scattered gastric erosions with no stigmata of bleeding, and non-obstructing schtazki's ring. Colonoscopy revealed an ileocecal valve mass which pathology subsequently showed to be invasive moderately to poorly differentiated adenocarcinoma. Oncology was consulted and recommended CT abdomen/pelvis that revealed metastatic disease with large mesenteric lymph nodes, retroperitoneal and upper abdominal lymph nodes, and suspected hepatic metastases with no evidence of bowel obstruction. It also showed multiple bilateral renal masses, incompletely characterized on this exam, but similar to older exams and most likely small cysts and large amounts of dense material within the gallbladder, likely sludge. Surgery was consulted. He then underwent right hemicolectomy for bleeding and tolerated the surgery well with no complications. His diet was advanced as tolerated and he did have a bowel movement. He is being discharged on his home medications and can resume anticoagulation. He should also follow up with oncology as well as primary care. #Bialteral Lower Extremity DVTs and Bilateral PE s/p IVC Filter placement: Patient was recently admitted for bilateral lower extremity DVTs and PE. Because he needed to have a hemicolectomy, an IVC filter was placed by vascular surgery. He can now continue on the rivaroxaban and follow-up with primary care. The patient should also follow up as an outpatient for DVT surveillance and discussion for IVC filter retrieval. #Elevated troponin: On presentation, patient had mildly elevated troponin. Patient was recently admitted here and had a type II GA, demand ischemia. This troponin level was less than previous laboratory analysis showed that it was trended down further. It was therefore thought that this was not in acute elevation but rather residual elevation from prior event. #Epistaxis: Patient had some mild epistaxis on admission. Anticoagulation was held and then this resolved with saline nasal spray. #Chronic medical problems: His other medications from home were continued except as above. Allergies: Coded Allergies: No Known Allergies (09/13/17) Disposition Summary Disposition Principal Diagnosis: 1. Stage IV colon cancer with liver metastasis Additional Diagnosis: 2. Bialteral Lower Extremity DVTs and Bilateral PE s/p IVC Filter placement 3. Epistaxis 4. Elevated troponin Discharge Disposition: home or self care Discharge Instructions General Discharge Information Code Status: Full Code Patient's Diet: Regular diet Patient's Activity: As tolerated Follow-Up Instructions/Appts: Physical medications as directed. Please follow-up with primary care, oncology, and vascular surgery. Medications at Discharge Discharge Medications: Continue taking these medications: Losartan Potassium (Losartan Potassium) 100 MG TABLET 1 Tablet ORAL DAILY Qty = 90 Comments: Last Taken: 01/29/18 Time: 9:17 AM Amlodipine Besylate (Amlodipine Besylate) 5 MG TABLET 1 Tablet ORAL DAILY Qty = 90 Comments: Last Taken: 01/29/18 Time: 9:18 AM Meloxicam (Meloxicam) 7.5 MG TABLET 1 Tablet ORAL DAILY Qty = 30 Comments: NOT GIVEN IN HOSPITAL Rivaroxaban (Xarelto) 15 MG TABLET 1 Tablet ORAL TWICE DAILY Qty = 42 Instructions: take 1 tab (15 mg) twice a day for 3 weeks then switch to 1 tab (20 mg) daily with food. Comments: NOT GIVEN IN HOSPITAL XARELTO 20 MG GIVEN 01/29/18 @ 9:18 AM Copies To: Doroteo CORTES,Evan Payne; Shaq CORTES,Fanny; Devika CORTES,Josh; Kaylyn CORTES,Roel Acosta; Charlie CORTES,Ramesh Attending MD Review Statement Documenting Attending: Fco Osei MD Other Findings: I saw the patient on the day of discharge (was followed by Dr. Vasquez near end of hospital stay). Agree with the jeremias of care upon discharge. To follow-up with Oncology, surgery, PCP.
--- NOTE | 2018-01-29 09:03 | Patient Discharge Instructions ---
Discharge Instructions General Discharge Information You were seen/treated for: Stage IV colon cancer with hemicolectomy Watch for these problems: Fever, chest pain, shortness of breath Special Instructions: Please take all medications as directed. Please follow-up with primary care and oncology. Diet Continue normal diet: Yes Activity Full Activity/No Limits: Yes Acute Coronary Syndrome Inclusion Criteria At DC or during hospital stay patient has or had the following: ACS DIAGNOSIS No Discharge Core Measures Meds if any: Prescribed or Continued at Discharge Meds if any: NOT Prescribed or Continued at Discharge Congestive Heart Failure Inclusion Criteria At DC or during hospital stay patient has or had the following: CHF DIAGNOSIS No Discharge Core Measures Meds if any: Prescribed or Continued at Discharge Meds if any: NOT Prescribed or Continued at Discharge Cerebrovascular accident Inclusion Criteria At DC or during hospital stay patient has or had the following: CVA/TIA Diagnosis No Discharge Core Measures Meds if any: Prescribed or Continued at Discharge Meds if any: NOT Prescribed or Continued at Discharge Venous thromboembolism Inclusion Criteria VTE Diagnosis No VTE Type NONE VTE Confirmed by (Test) NONE Discharge Core Measures - Per Current guidelines, there needs to be overlap - treatment for the first 5 days of Warfarin therapy. - If discharged on Warfarin prior to 5 days of - overlap therapy, the patient will need to be - assessed for post discharge needs including - *Post discharge parental anticoagulation - *Warfarin and/or parental anticoagulation education - *Follow up date to check INR post discharge At least 5 days overlap therapy as Inpatient No Meds if any: Prescribed or Continued at Discharge Note: Overlap Therapy is Warfarin and Anticoagulant Meds if any: NOT Prescribed or Continued at Discharge
[2018-01-29 09:18] VITALS: BP 138/60
== END 2018-01-29 10:10 | DRG 329 ==
LOC: ERH 11:10 → ERHI 13:48 → EDBEDREQ 14:36 → 1NO 14:54 → ERH 14:54 → ERHI 14:54 → ENRESERV 15:19 → ENTRNSPT 16:04 → EDTRNSPT 16:21 → EDTRNSPTSTS 16:21 → 1NO 16:35 → ERHI 16:35 → 1NO 16:36 → CMPTRNSPT 16:39 → 1NO 22:38 → 2NB 01-22 16:12 → 1NO 01-22 16:18 → DELTRNSPT 01-23 09:21 → ENTRNSPT 01-23 09:21 → EDTRNSPT 01-23 09:39 → EDTRNSPTSTS 01-23 09:39 → CMPTRNSPT 01-23 09:59 → 1NO 01-23 22:54 → ENTRNSPT 01-24 21:13 → EDTRNSPTSTS 01-24 21:24 → EDTRNSPT 01-24 21:24 → CMPTRNSPT 01-24 21:42 → ENTRNSPT 01-27 07:52 → EDTRNSPTSTS 01-27 08:15 → 2NB 01-27 08:31 → CMPTRNSPT 01-27 08:37 → 2NB 01-27 08:45 → ENPENDDIS 01-29 08:59 → 2NB 01-29 10:10
PROVIDERS: Internal Medicine; Internal Medicine Adolescent Medicine; Physician Assistant; Student in an Organized Health Care Education/Training Program
PROC: 0DBB8ZX Excision of Ileum, Via Natural or Artificial Opening Endoscopic, Diagnostic (ICD-10-PCS; principal; 2018-01-22)
PROC: 0DB98ZX Excision of Duodenum, Via Natural or Artificial Opening Endoscopic, Diagnostic (ICD-10-PCS; 2018-01-22)
PROC: 0DB68ZX Excision of Stomach, Via Natural or Artificial Opening Endoscopic, Diagnostic (ICD-10-PCS; 2018-01-22)
PROC: 06H03DZ Insertion of Intraluminal Device into Inferior Vena Cava, Percutaneous Approach (ICD-10-PCS; 2018-01-23)
PROC: 0DTF0ZZ Resection of Right Large Intestine, Open Approach (ICD-10-PCS; 2018-01-24)
PROC: 0FB10ZX Excision of Right Lobe Liver, Open Approach, Diagnostic (ICD-10-PCS; 2018-01-24)
PROC: 3E0T3BZ Introduction of Anesthetic Agent into Peripheral Nerves and Plexi, Percutaneous Approach (ICD-10-PCS; 2018-01-24)
DX: C18.0 Malignant neoplasm of cecum (principal); I26.99 Other pulmonary embolism without acute cor pulmonale; I82.411 Acute embolism and thrombosis of right femoral vein; D62 Acute posthemorrhagic anemia; K22.2 Esophageal obstruction; C78.7 Secondary malignant neoplasm of liver and intrahepatic bile duct; I24.8 Other forms of acute ischemic heart disease; K92.2 Gastrointestinal hemorrhage, unspecified; K86.0 Alcohol-induced chronic pancreatitis; I82.442 Acute embolism and thrombosis of left tibial vein; I10 Essential (primary) hypertension; R04.0 Epistaxis; M54.9 Dorsalgia, unspecified; D17.79 Benign lipomatous neoplasm of other sites; Z79.01 Long term (current) use of anticoagulants; E78.5 Hyperlipidemia, unspecified; J38.1 Polyp of vocal cord and larynx; M47.9 Spondylosis, unspecified; Z80.0 Family history of malignant neoplasm of digestive organs; R79.89 Other specified abnormal findings of blood chemistry; Z87.891 Personal history of nicotine dependence; F10.10 Alcohol abuse, uncomplicated; K64.1 Second degree hemorrhoids
CPT/HCPCS: 1NP; 1NSP; 2NBSP; 36415; 36592; 74018; 74177; 82436; 87086; 88305; 88312; 93005; 93010; 97161-GP; C1725; C9290; C9399; J0131; J0360; J0690; J1644; J2270; J3490; J7042; Q9967

== ENCOUNTER 2018-02-11 21:17 | Inpatient (IN) | payer OTHER, MEDICARE ==
[~2018-02-11] VITALS: Ht 188 cm; Wt 92.7 kg
[~2018-02-11 21:17] MED LIST changes: +XARELTO10 M1 PO
--- NOTE | 2018-02-11 21:29 | ED NEURO DEFICIT/STROKE ---
History of Present Illness General Chief Complaint: General Adult Stated Complaint: BIBA FOR EVAL ?CVA Source: patient, old records Exam Limitations: aphasia, frustration Vital Signs & Intake/Output Vital Signs & Intake/Output Vital Signs Date Time Temp Pulse Resp B/P B/P Pulse O2 O2 Flow FiO2 Mean Ox Delivery Rate 02/17 0905 85 120/60 02/17 0904 85 120/60 02/17 0633 98.2 85 20 120/60 96 Room Air 02/17 0000 Room Air 02/16 2248 96.9 80 20 118/58 97 Room Air 02/16 1425 98.2 93 18 124/82 97 Room Air ED Intake and Output 02/17 0000 02/16 1200 Intake Total 620 110 Output Total Balance 620 110 Intake, IV 20 10 Intake, Oral 600 100 Number 1 Bowel Movements Patient 210 lb Weight Weight Bed scale Measurement Method Allergies Coded Allergies: No Known Allergies (09/13/17) Reconcile Medications Amlodipine Besylate 5 MG TABLET 1 TAB PO DAILY BP (Reported) Losartan Potassium 100 MG TABLET 1 TAB PO DAILY BP (Reported) Meloxicam 7.5 MG TABLET 1 TAB PO DAILY inflammation pain (Reported) Oxycodone HCl/Acetaminophen (Percocet 5-325 MG Tablet) 5 MG-325 MG TABLET 1 TAB PO Q4P PRN PAIN SCALE 7-10 (SEVERE) Rivaroxaban (Xarelto) 15 MG TABLET 1 TAB PO BID pulmonary embolism take 1 tab (15 mg) twice a day for 3 weeks then switch to 1 tab (20 mg) daily with food. Triage Nurses Notes Reviewed? yes HPI: Patient presents for evaluation of right hand grasp weakness and trouble speaking that began this morning. History is somewhat limited as the patient is extremely frustrated with the fact that he is having trouble expressing himself. He states he was seen by his primary care doctor earlier this morning and stated "the more I see doctors the more [expletive] up I get). Past History Travel History Traveled to [place] past 21 day No Medical History Any Pertinent Medical History? see below for history Neurological: NONE EENT: NONE Cardiovascular: hypertension, hyperlipidemia Respiratory: NONE Gastrointestinal: pancreatitis Hepatic: NONE Renal: NONE Musculoskeletal: osteoarthritis, rotator cuff injury Psychiatric: NONE Endocrine: NONE Blood Disorders: DVT, PE Cancer(s): NONE ON SITE PROPERTY MANAGER/Reproductive: NONE History of MRSA: No History of VRE: No History of CDIFF: No Tetanus Vaccine: 10/20/17 Surgical History Surgical History: B/L rotator cuff repair Psychosocial History Who do you live with Spouse Services at Home None What is your primary language Kiswahili ETOH Use: unknown Illicit Drug Use: unknown Other addictive behavior Hx Unknown Family History Family History, If Any: SISTER FH: colon cancer BROTHER FHx: congenital heart disease Hx Contributory? No Review of Systems Review of Systems Constitutional: Reports: no symptoms. EENTM: Reports: no symptoms. Respiratory: Reports: no symptoms. Cardiovascular: Reports: no symptoms. GI: Reports: no symptoms. Genitourinary: Reports: no symptoms. Musculoskeletal: Reports: no symptoms. Skin: Reports: no symptoms. Neurological/Psychological: Reports: see HPI. Hematologic/Endocrine: Reports: no symptoms. Immunologic/Allergic: Reports: no symptoms. All Other Systems: Reviewed and Negative Physical Exam Physical Exam General Appearance: see below Cranial Nerves: see below Core Measures CVA/TIA Diagnosis: Yes NIH Stroke Scale NIH Stroke Scale Response Value Level of Consciousness alert 0 LOC Questions answers both correctly 0 LOC Commands obeys both correctly 0 Best Gaze normal 0 Visual Parmar no visual loss 0 Facial Paresis normal 0 Motor Arm - Left drift 1 Motor Arm - Right drift 1 Motor Leg - Left no drift 0 Motor Leg - Right no drift 0 Limb Ataxia present in one limb 1 Sensory normal 0 Best Language mild to moderate aphasia 1 Dysarthria mild/mod slurring words 1 Extinction and Inattention no neglect 0 Total 5 Swallow Evaluation Pass Swallow eval date 02/12/18 Sepsis Present: No Sepsis Focused Exam Completed? No Progress Differential Diagnosis: cva, tia, HYPOGLYCEMIA, MEDICATION REACTION, COMPLICATED MIGRAINE Plan of Care: Orders Procedure Date/time Status Clear Liquid Diet 02/17 B Active CBC WITHOUT DIFFERENTIAL 02/17 0600 Complete BASIC ELECTROLYTES PLUS BUN&CR 02/17 0600 Complete Change service to 02/17 UNK Active Precautions 02/17 UNK Active PSYCHIATRIC CONSULT 02/17 UNK Active BLOOD PRODUCT PICKUP 02/16 2129 Active LEUKOCYTE POOR (PACKED CELLS) 02/16 2043 Active CBC WITHOUT DIFFERENTIAL 02/16 1728 Complete TYPE & SCREEN (NOT X-MATCH) 02/16 1727 Complete MISSING MEDICATION FORM 02/16 1359 Active Hemoccult 02/16 UNK Active Current Medications Sig/Natalee Start time Last Medication Dose Stop Time Status Admin Aspirin Buffered 81 MG DAILY 02/17 1000 AC 02/17 (Ecotrin) 0906 Omeprazole 40 MG DAILY AC 02/17 0045 AC (Prilosec) Zolpidem Tartrate 10 MG AT BEDTIME PRN 02/16 2345 AC 02/16 (Ambien) 2359 Senna/Docusate Sodium 2 TAB QPM 02/15 2200 AC 02/16 (Senokot S) 213 Simethicone 80 MG Q4P PRN 02/15 0300 AC 02/15 (Mylicon) 0335 Ramelteon 8 MG AT BEDTIME NEED.. 02/14 2115 AC 02/16 (Rozerem) 214 Docusate Sodium 100 MG DAILY NEEDED PRN 02/13 1915 AC (Colace) Senna 187 MG AT BEDTIME PRN 02/13 1915 AC 02/14 (Senokot) 0746 Nitroglycerin 0.5 GM Q6 02/13 1200 AC 02/16 (Nitro-Bid) 173 Alprazolam 0.25 MG DAILY 02/13 1000 AC 02/17 (Xanax) 02/20 0959 0901 Lidocaine 1 PAT DAILY 02/13 1000 AC 02/17 (Lidoderm) 0905 Morphine Sulfate 2 MG Q6-PRN PRN 02/12 1745 AC 02/17 (MORPHINE SULFATE) 0901 Oxycodone/ 1 TAB Q4P PRN 02/12 174 AC 02/16 Acetaminophen 2141 (Percocet) Cyclobenzaprine HCl 10 MG TID PRN 02/12 1545 AC 02/16 (Flexeril 10MG Tab) 0821 Amlodipine Besylate 5 MG DAILY 02/12 1000 AC 02/17 (Norvasc) 0905 Losartan Potassium 100 MG DAILY 02/12 1000 AC 02/17 (Cozaar) 0904 Atorvastatin Calcium 40 MG 1700 02/12 0300 AC 02/16 (Lipitor) 1733 Laboratory Tests 02/17/18 0937: Anion Gap 12, Estimated GFR > 60, BUN/Creatinine Ratio 27.5 H 02/17/18 0624: CBC w Diff NO MAN DIFF REQ, RBC 3.02 L, MCV 80.3, MCH 26.3 L, MCHC 32.8 L, RDW 15.3 H, MPV 8.5, Gran % 72.5, Lymphocytes % 11.5 L, Monocytes % 8.4, Eosinophils % 7.0 H, Basophils % 0.6, Absolute Granulocytes 7.7 H, Absolute Lymphocytes 1.2, Absolute Monocytes 0.9 H, Absolute Eosinophils 0.7, Absolute Basophils 0.1 02/16/181843: CBC w Diff NO MAN DIFF REQ, RBC 2.80 L, MCV 79.9 L, MCH 25.7 L, MCHC 32.1 L, RDW 15.9 H, MPV 8.6, Gran % 79.7 H, Lymphocytes % 9.3 L, Monocytes % 6.5, Eosinophils % 3.8, Basophils % 0.7, Absolute Granulocytes 7.3 H, Absolute Lymphocytes 0.9 L, Absolute Monocytes 0.6, Absolute Eosinophils 0.3, Absolute Basophils 0.1 Diagnostic Imaging: Discussed w/RAD: CT Scan. Radiology Impression: PATIENT: FERMIN HSAFER PRESENT AGE: 67 PATIENT ACCOUNT NO: [id number] : 52 LOCATION: ER ORDERING PHYSICIAN: Demetrio MONTEIRO SERVICE DATE: 02/11/18 EXAM TYPE : CAT - CT HEAD WO IV CONTRAST EXAMINATION: CT HEAD WITHOUT CONTRAST CLINICAL INFORMATION: Weakness COMPARISON: None TECHNIQUE: Contiguous axial imaging was performed from the skull base to vertex without intravenous administration of contrast. There is no midline shift. No mass effect. No hemorrhage. Basilar cisterns appear patent. Posterior fossa risk grossly within normal limits. There is no extra-axial collection. Areas of scattered white matter ischemic change most noted high parietal region on the right and occipital region IMPRESSION: Evidence of chronic white matter infarction and ischemic change. No acute midline shift, mass effect or hemorrhage here. DICTATED BY: Fermin Hidalgo MD DATE/TIME DICTATED:02/11/182218 BREAKFAST SERVER:ASMITA DATE/TIME TRANSCRIBED:02/11/182218 CONFIDENTIAL, DO NOT COPY WITHOUT APPROPRIATE AUTHORIZATION. <Electronically signed in Other Vendor System> SIGNED BY: Fermin Hidalgo MD 02/11/182224, PATIENT: FERMIN SHAFER PRESENT AGE: 67 PATIENT ACCOUNT NO: [id number] : 52 LOCATION: ER ORDERING PHYSICIAN: Fermin Ramos MD SERVICE DATE: 02/11/18 EXAM TYPE : CAT - CT HEAD ANGIOGRAM EXAMINATION: CT ANGIOGRAM HEAD CLINICAL INFORMATION: Aphasia. Weakness right hand. COMPARISON: CT head February 11, 2018 TECHNIQUE: Test bolus sequences followed by intravenous administration 95 mL of Optiray 320 intravenous contrast. Helical imaging was performed in the axial plane from the mediastinum to the skull vertex. The data was processed at the instructional technologist' s workstation for generation of MIP sequences. No 3-D images were performed. DLP : 1427.49 mGy-cm FINDINGS: HEAD: No abnormal enhancing lesion in the head. No intracranial mass, intercerebral edema, hemorrhage, or midline shift is evident. The ventricles and sulci are stable in size and configuration. No extra-axial collections are appreciated. The paranasal sinuses are well aerated and clear. CRANIAL CTA: There is normal opacification of the major intracranial vessels. No acute proximal large vessel occlusion, focal flow-limiting stenosis, or saccular intracranial aneurysm is identified. No abnormal parenchymal enhancement or regional oligemia is visualized. IMPRESSION: Normal CTA of head. DICTATED BY: Evan Garcia MD DATE/TIME DICTATED:02/12/1820 BREAKFAST SERVER:ASMITA DATE/TIME TRANSCRIBED:02/12/1820 CONFIDENTIAL, DO NOT COPY WITHOUT APPROPRIATE AUTHORIZATION. <Electronically signed in Other Vendor System> SIGNED BY: Evan Garcia MD 02/12/1827 Initial ED EKG: NSR, rate (77) Prior EKG: unchanged Comments: 02/11/2018 10:00:31 PM patient's case discussed with Dr. cheung who feels the patient could be a candidate for intravascular clot removal if a clot is seen on a CTA of the head, so long as there is no large infarct present. I've confirmed with his that symptoms began intermittently yesterday consisting of weakness of the right hand and then again today at about 8:00 this morning with an expressive aphasia. 02/12/2018 12:52:02 AM patient's case discussed with Dr. Mckee who feels that the troponins should be trended, otherwise, no acute change in medical management given the patient's anticoagulation. asa held due to current anticoagulation pending eval by neurology. Departure Departure Disposition: STILL A PATIENT Condition: Stable Clinical Impression Primary Impression: CVA (cerebral vascular accident) Qualifiers: CVA mechanism: unspecified Qualified Code: I63.9 - Cerebral infarction, unspecified Secondary Impressions: Elevated troponin Referrals: Doroteo CORTES,Evan Payne (PCP/Family) Departure Forms: Customer Survey General Discharge Information Prescriptions: Current Visit Scripts Oxycodone HCl/Acetaminophen (Percocet 5-325 MG Tablet) 1 TAB PO Q4P PRN PAIN SCALE 7-10 (SEVERE) #10 TAB Admission Note Spoke With: Jose M CORTES,Syed Documentation of Exam: Documentation of any treatments & extenuating circumstances including Concerns Regarding Discharge (functional status, medication knowledge or non-compliance, living conditions, etc.) that warrant an admission rather than observation: Patient presents with an expressive aphasia and decreased right hand grasp consistent with a CVA. Feel this patient now requires an expedited evaluation of potentially reversible causes of a stroke including cardioembolic phenomenon and carotid artery disease. He should have a neurology consultation, follow-up MRI scan echocardiogram and carotid Doppler studies as well as adjustment of his current medications. Given his expressive aphasia and weakness of his right hand, physical and occupational therapy should also be considered. Short-term rehabilitation placement is a possibility under the circumstances. In addition to the above and complicating this patient's care is the fact that he is currently taking an anticoagulant for a recent history of DVT and PE. I feel the patient will require a multiple day hospitalization.
--- NOTE | 2018-02-11 22:25 | CT SCAN REPORT ---
EXAMINATION: CT HEAD WITHOUT CONTRAST CLINICAL INFORMATION: Weakness COMPARISON: None TECHNIQUE: Contiguous axial imaging was performed from the skull base to vertex without intravenous administration of contrast. There is no midline shift. No mass effect. No hemorrhage. Basilar cisterns appear patent. Posterior fossa risk grossly within normal limits. There is no extra-axial collection. Areas of scattered white matter ischemic change most noted high parietal region on the right and occipital region IMPRESSION: Evidence of chronic white matter infarction and ischemic change. No acute midline shift, mass effect or hemorrhage here.
[2018-02-11 22:27] LABS: ABSOLUTE BASOPHIL COUNT 0.1 /CUMM (0.0-0.2); ABSOLUTE EOSINOPHIL COUNT 1.2 /CUMM (0.0-0.7); ABSOLUTE GRANULOCYTE CT 8.6 /CUMM (1.4-6.5); ABSOLUTE LYMPH COUNT 1.8 /CUMM (1.2-3.4); BASOPHIL % 0.9 % (0.0-2.0); EOSINOPHIL % 9.4 % (0-5); GRANULOCYTE % 67.7 % (42.2-75.2); MEAN CORPUSCULAR HGB 26.2 PG (27.0-31.0); MEAN CORPUSCULAR HGB CONC 32.5 G/DL (33.0-37.0); MEAN CORPUSCULAR VOLUME 80.6 FL (80.0-94.0); MEAN PLATELET VOLUME 8.1 FL (7.4-10.4); PLATELET COUNT 486 /CUMM (130-400); RBC DISTRIBUTION WIDTH 15.6 % (11.5-14.5); RED BLOOD CELL CT 3.35 /CUMM (4.70-6.10); WHITE BLOOD CELL COUNT 12.7 /CUMM (4.8-10.8)
[2018-02-11 22:47] LABS: PT 24.9 SEC (9.4-12.5); PTT 29 SEC (25-37)
--- NOTE | 2018-02-12 00:28 | CT SCAN REPORT ---
EXAMINATION: CT ANGIOGRAM HEAD CLINICAL INFORMATION: Aphasia. Weakness right hand. COMPARISON: CT head February 11, 2018 TECHNIQUE: Test bolus sequences followed by intravenous administration 95 mL of Optiray 320 intravenous contrast. Helical imaging was performed in the axial plane from the mediastinum to the skull vertex. The data was processed at the electrical engineering technologist's workstation for generation of MIP sequences. No 3-D images were performed. DLP: 1427.49 mGy-cm FINDINGS: HEAD: No abnormal enhancing lesion in the head. No intracranial mass, intercerebral edema, hemorrhage, or midline shift is evident. The ventricles and sulci are stable in size and configuration. No extra-axial collections are appreciated. The paranasal sinuses are well aerated and clear. CRANIAL CTA: There is normal opacification of the major intracranial vessels. No acute proximal large vessel occlusion, focal flow-limiting stenosis, or saccular intracranial aneurysm is identified. No abnormal parenchymal enhancement or regional oligemia is visualized. IMPRESSION: Normal CTA of head.
--- NOTE | 2018-02-12 01:56 | History & Physical ---
Casi CORTES,[facility] 02/12/18 0155: General Information and HPI MD Statement: I have seen and personally examined CHARLINE SHAFER and documented this H&P. The patient is a 67 year old M who presented with a patient stated chief complaint of [trouble speaking]. Source of Information: family Exam Limitations: clinical condition History of Present Illness: Mr. Shafer is a 67-year-old gentleman with past medical history significant for hypertension, hyperlipidemia, pancreatitis, osteoarthritis, recently diagnosed DVT and PE s/p IVC filter placement on Xarelto (Dec 2017) and metastatic poorly differentiated adenocarcinoma of the colon status post right hemicolectomy on presents with difficulty talking starting this morning. History was obtained from the as the patient was frustrated because of difficulty speaking. Per the , around 8-9 AM this morning patient mentioned that he wasn't able to make sentences and words were not coming out of his mouth. brought him to the ER in the evening as symptoms continued to persist without any improvement. Patient also had a transient episode of her right hand weakness, unable to make a fist, yesterday(saturday) that resolved on its own. Denies any confusion, facial droop, weakness or numbness in any part of the body, loss of consciousness or any visual changes. Patient has history of chronic headaches and denies any recent worsening. Patient continues to have the symptoms and reports feeling tired and frustrated. Endorses mild shortness of breath likely secondary to the recent PE but it has been getting better. No chest pain or palpitations. Patient has also been having a low backache since November. A bone scan was recommended by Dr. Moreno to rule out any metastasis from colon cancer even though less likely. Patient is also supposed to get a chemotherapy port and start the chemotherapy next month. Allergies/Medications Allergies: Coded Allergies: No Known Allergies (09/13/17) Home Med list Amlodipine Besylate 5 MG TABLET 1 TAB PO DAILY BP (Reported) Losartan Potassium 100 MG TABLET 1 TAB PO DAILY BP (Reported) Meloxicam 7.5 MG TABLET 1 TAB PO DAILY inflammation pain (Reported) Rivaroxaban (Xarelto) 15 MG TABLET 1 TAB PO BID pulmonary embolism take 1 tab (15 mg) twice a day for 3 weeks then switch to 1 tab (20 mg) daily with food. Past History Travel History Traveled to [place] past 21 day No Medical History Neurological: NONE EENT: NONE Cardiovascular: hypertension, hyperlipidemia Respiratory: NONE Gastrointestinal: pancreatitis Hepatic: NONE Renal: NONE Musculoskeletal: osteoarthritis, rotator cuff injury Psychiatric: NONE Endocrine: NONE Blood Disorders: DVT, PE Cancer(s): colon/rectal cancer OCEANOLOGIST/Reproductive: NONE History of MRSA: No History of VRE: No History of CDIFF: No Tetanus Vaccine: 09/13/17 Surgical History Surgical History: colon resection, B/L rotator cuff repair Past Family/Social History Family History Relations & Conditions if any SISTER FH: colon cancer BROTHER FHx: congenital heart disease Psychosocial History Who Do You Live With? spouse Services at Home: None Primary Language: Grenadian ETOH Use: unknown Illicit Drug Use: unknown Other Social History: Unknown Functional Ability ADLs Independent: dressing, eating, toileting, bathing. Ambulation: independent IADLs Independent: shopping, housework, finances, food prep, telephone, transportation , medication admin. Review of Systems Review of Systems Constitutional: Reports: malaise. EENTM: Reports: no symptoms. Cardiovascular: Reports: no symptoms. Respiratory: Reports: short of breath. GI: Reports: no symptoms. Genitourinary: Reports: no symptoms. Musculoskeletal: Reports: no symptoms. Skin: Reports: no symptoms. Neurological/Psychological: Reports: other. Hematologic/Endocrine: Reports: no symptoms. Immunologic/Allergic: Reports: no symptoms. All Other Systems: Reviewed and Negative Exam & Diagnostic Data Last 24 Hrs of Vital Signs/I&O Vital Signs Date Time Temp Pulse Resp B/P B/P Pulse O2 O2 Flow FiO2 Mean Ox Delivery Rate 02/12 0236 97.8 93 18 134/58 97 Room Air 02/12 0053 97.8 110 18 145/62 100 Room Air 02/11 2212 Room Air 02/11 2131 98.0 88 16 150/70 99 Room Air Room Air Intake & Output 02/12 0800 02/12 0000 02/11 1600 Intake Total Output Total Balance Patient 205 lb Weight Weight Bed scale Measurement Method Physical Exam General Appearance Alert, Cooperative, Frustrated Skin No Rashes, No Breakdown HEENT Atraumatic, PERRLA, EOMI Neck Supple, No JVD Cardiovascular Regular Rate, Normal S1, Normal S2, No Murmurs Lungs Clear to Auscultation, Normal Air Movement Abdomen Normal Bowel Sounds, Soft, No Tenderness Neurological Normal Tone, Sensation Intact, Reflexes 2+, RUE and RLE +4/5, left side 5/5, pronator drift +ve on right Last 24 Hrs of Labs/Marlon: Laboratory Tests 02/12/18 0400: Hemoglobin A1c Pending, Troponin I Pending, Triglycerides Pending, Cholesterol Pending, LDL Cholesterol, Calc Pending, HDL Cholesterol Pending, Cholesterol/HDL Ratio Pending 02/12/18 0400: Sodium Pending, Potassium Pending, Chloride Pending, Carbon Dioxide Pending, Anion Gap Pending, BUN Pending, Creatinine Pending, BUN/Creatinine Ratio Pending , CBC w Diff Pending, WBC Pending, RBC Pending, Hgb Pending, Hct Pending, MCV Pending, MCH Pending, MCHC Pending, RDW Pending, Plt Count Pending, MPV Pending 02/11/18 2205: Anion Gap 9, Estimated GFR > 60, BUN/Creatinine Ratio 20.0, Glucose 111 H, Calcium 9.0, Total Bilirubin 0.4, AST 18, ALT 27, Alkaline Phosphatase 104, Troponin I 0.42 *H, Total Protein 6.7, Albumin 3.5, Globulin 3.2, Albumin/ Globulin Ratio 1.1, PT 24.9 H, INR 2.27 H, APTT 29, CBC w Diff NO MAN DIFF REQ , RBC 3.35 L, MCV 80.6, MCH 26.2 L, MCHC 32.5 L, RDW 15.6 H, MPV 8.1, Gran % 67.7, Lymphocytes % 14.1 L, Monocytes % 7.9, Eosinophils % 9.4 H, Basophils % 0.9, Absolute Granulocytes 8.6 H, Absolute Lymphocytes 1.8, Absolute Monocytes 1.0 H, Absolute Eosinophils 1.2, Absolute Basophils 0.1 Diagnostic Data EKG Results Normal sinus rhythm Heart rate [address] QTC [address] Head There is no midline shift. No mass effect. No hemorrhage. Basilar cisterns appear patent. Posterior fossa risk grossly within normal limits. There is no extra-axial collection. Areas of scattered white matter ischemic change most noted high parietal region on the right and occipital region IMPRESSION: Evidence of chronic white matter infarction and ischemic change. No acute midline shift, mass effect or hemorrhage here. CT HEAD ANGIOGRAM FINDINGS: HEAD: No abnormal enhancing lesion in the head. No intracranial mass, intercerebral edema, hemorrhage, or midline shift is evident. The ventricles and sulci are stable in size and configuration. No extra-axial collections are appreciated. The paranasal sinuses are well aerated and clear. CRANIAL CTA: There is normal opacification of the major intracranial vessels. No acute proximal large vessel occlusion, focal flow-limiting stenosis, or saccular intracranial aneurysm is identified. No abnormal parenchymal enhancement or regional oligemia is visualized. IMPRESSION: Normal CTA of head. Assessment/Plan Assessment: Mr. Shafer is a 67-year-old gentleman with past medical history significant for hypertension, hyperlipidemia, pancreatitis, osteoarthritis, lower back pain, recently diagnosed DVT and PE s/p IVC filter placement on Xarelto (Dec 2017) and metastatic poorly differentiated adenocarcinoma of the colon status post right hemicolectomy on 01/24/18 presents with difficulty talking starting around 8:52 AM this morning. Problem list; 1. Stroke likely ischemic. The possibility of brain metastases from colon cancer is unlikely but could be one of the differentials. 2. Elevated troponins without any EKG changes. ?? demand Ischemia. 3. Recently diagnosed colon cancer status post right hemicolectomy 3. Recent DVT and PE s/p IVC filter on Xarelto 4. History of hypertension, hyperlipidemia, osteoarthritis and back pain. - We will admit patient to telemetry floor. - Start the patient on aspirin 81 mg and atorvastatin 40 mg daily. - MRI brain in am. - Carotid ultrasound. - Troponin and EKG 3 to rule out ACS. - Recent echocardiogram on January 16 showed an ejection fraction of greater than then 55% with impaired left ventricular relaxation. No need to repeat echocardiogram. - Neurology consult - Check lipid panel and A1c. - Hold antihypertensives for permissive hypertension. - Patient passed bedside swallow evaluation. - OT/PT evaluation in a.m. - Adequate pain management. - Haem/Onc Consult. - Continue Xarelto for DVT and PE. DVT prophylaxis; on Xarelto Patient is full code As Ranked By This Provider Problem List: 1. Adenocarcinoma of colon metastatic to liver 2. CVA (cerebral vascular accident) Qualifiers CVA mechanism: unspecified Qualified Code: I63.9 - Cerebral infarction, unspecified Core Measures/Misc (08/11) Acute Coronary Syndrome ACS Diagnosis: No Congestive Heart Failure Congestive Heart Failure Diagnosis No Cerebrovascular Accident CVA/TIA Diagnosis: Yes Swallow Evaluation Pass VTE (View Protocol) VTE Risk Factors Cancer/chemo/othr therapy No Mechanical VTE Prophylaxis d/t N/A MechProphylax Ordered No VTE Pharm Prophylaxis d/t NA PharmProphylax ordered Sepsis (View protocol) Sepsis Present: No Nishant Sifuentes 02/12/18 0307: Resident Review Statement Resident Statement: examined this patient, discussed with manager international, agreed with manager international, discussed with family, reviewed EMR data (avail), discussed with nursing , discussed with case mgmt, reviewed images, amended to note Other Findings: This is a 67-year-old unfortunate male with past medical history significant for hypertension, hyperlipidemia, alcohol induced pancreatitis, osteoarthritis, bilateral lower extremity DVT, bilateral unprovoked pulmonary embolism on Xarelto 15 twice daily, colon cancer status post resection presented to the emergency department with chief complaint of change in speech since 02/11/2018 8 AM. Patient was admitted to [facility] from 01/22 - 01/29 for GI bleed, found to have colon cancer with liver metastasis, status post hemicolectomy. He is following up with oncologist as an outpatient, planning to start chemotherapy in February. Of note he was admitted to [facility] 01/15/01/18 for bilateral lower extremity deep vein thrombosis and bilateral unprovoked pulmonary embolism, elevated troponin and he has been taking Xarelto 15 mg twice daily and he is status post IVC filter placement. After discharge from the hospital, he has been following up with oncologist and general surgeon. He is compliant with all the medications and follow-ups. Most of the history was provided by the who is at bedside as patient is frustrated about his speech changes. According to the , patient has some speech changes since 8 AM, and he couldnt speak full sentences, couldn't express what he wanted to speak, he feels that words are not coming out. He doesn't notice any facial droop, weakness, numbness, sensory changes, vision changes, gait abnormalities, headache. He is alert awake and oriented 3. Off note he and his also reports that he has some problems with the right hand grasping for 1 day. He denies any chest pain, palpitations, short of breath, fever, chills, productive cough, nausea, vomiting, abdominal pain, change in bladder or bowel habits. However he reports chronic back pain, his oncologist is planning to get bone scan to look for any metastasis. Last echocardiogram was done in December 2017 showed ejection fraction of 55% with impaired left ventricle relaxation ------- Vitals Afebrile, heart rate 90, respiratory rate 16, blood pressure 1 5270, saturating at 99 on room air On exam HEENT within normal limits, no JVD, S1-S2 normal no murmurs, bilateral breath sounds normal, Abdomen soft nontender nondistended Motor strength 5 out of 5 left, 4 out of 5 right, sensory exam within normal limit, cranial nerve exam 2-12 normal, cerebellar exam abnormal. Pertinent labs Leukocytosis 12.7, hemoglobin 8.8, hematocrit 27, platelets 486 CMP within normal limits EKG 77, sinus rhythm, no ST-T wave changes. CT head Evidence of chronic white matter infarction and ischemic change. No acute midline shift, mass effect or hemorrhage here. CTA head normal Ruling out stroke Patient presented with speech changes, expressive aphasia since 8 AM. Also reports difficulty with right hand grasping. Mild weakness noticed on right side. However CT head, CTA head was negative. Given his recent anticoagulation , Hemorrhage was ruled out. However given all his his risk factors- deep vein thrombosis, pulmonary embolism, cancer history we'll admit him to telemetry and get MRi head to rule out stroke. * Admit to telemetry * Continuous telemetry monitoring * Monitor vitals every shift * NIH stroke scale * Fall precautions * Aspirin 81 daily * Lipitor 40 daily * Follow-up MRi headache for any infarct * Follow-up carotid Doppler * Recent echo in December 2017 showed ejection fraction 55% with impaired left ventricular relaxation * Cardio consult * Neuro consult * PTOT * Speech and swallow * Passed bedside swallow eval * Follow-up HbA1c and lipid panel Elevated troponin On presentation, patient had mildly elevated troponin. Patient was recently admitted here and had a type II ID, demand ischemia. Troponin 0.42 at the time of admission. EKG showed sinus rhythm, rates of [address]-T wave changes. Looks like a type II ID/demand ischemia from PE. * Serial troponin and EKG * Cardiology consult * Telemetry monitoring * Echo based on cardiology recommendation * Continue aspirin and Lipitor Stage IV colon cancer with liver metastasis: During his last admission, Endoscopy revealed submucosal nodule second portion of the duodenum, scattered gastric erosions with no stigmata of bleeding, and non-obstructing schtazki's ring. Colonoscopy revealed an ileocecal valve mass which pathology subsequently showed to be invasive moderately to poorly differentiated adenocarcinoma. Oncology was consulted and recommended CT abdomen /pelvis that revealed metastatic disease with large mesenteric lymph nodes, retroperitoneal and upper abdominal lymph nodes, and suspected hepatic metastases with no evidence of bowel obstruction. Underwent hemicolectomy and he has been following up with oncologist as an outpatient to start chemotherapy. Bialteral Lower Extremity DVTs and Bilateral PE s/p IVC Filter placement: Patient was recently admitted for bilateral lower extremity DVTs and PE. Because he needed to have a hemicolectomy, an IVC filter was placed by vascular surgery. * xaralto 50 mg twice daily for 1 more week and then start 20 mg daily Hypertension * Continue amlodipine 5 daily and losartan 100 daily Chronic back pain * Continue Tylenol for mild pain and Percocet for moderate to severe. Patient is full code DVT prophylaxis on Xarelto Regular diet Jose M CORTES, [facility] 02/12/18 0548: Attending MD Review Statement Attending Statement Attending MD Statement: examined this patient, discuss w/resident/PA/TAXICAB DISPATCHER, agreed w/resident/PA/TAXICAB DISPATCHER, discussed with family, reviewed images, amended to note Attending Assessment/Plan: 67 yo M with h/o HTN, previous alcohol abuse, pancreatitis, recently diagnosed with bilateral DVT and PE s/p IVC filter on xarelto (Dec 2017), subsequently diagnosed with colon adenocarcinoma metastatic to the liver for which he underwent right hemicolectomy and is scheduled for chemotherapy later. He is brought in for evaluation of speech deficits. provides history. One day prior to admission, patient noted right hand stiffness (inability to make a fist) that resolved on its own. He went for his follow up visit to Dr. Comer (incisional carmelo removed) and Dr. Fortune (for eventual plan for chemo) and did well overnight. This morning, around 8 am, patient's speech was slurred and 'words were not coming out correctly' and patient was having difficulty forming sentences. did not notice any facial droop or hemiparesis. Patient is frustrated about his inability to express himself. He tried writing for me but just scribbled. He denies chest pain, dyspnea, vision changes, palpitations or lightheadedness. Patient has had chronic headaches and low back pain which seems to have been persistent. He is scheduled for a PET CT ?bone scan to assess for bony mets. Vitals stable except for mild tachycardia. Neuro exam: awake, alert, but unable to express words, speech slurred, power 4/5 on right upper and lower extremity, sensation is reduced on right side, cranial nerves normal, pronator drift to right, cerebellar function normal, romberg's test negative, gait slow and unsteady. Labs: H/H 8.8/27, WBC 12.7, Plt 486, INR 2.27, trop 0.42. CT head: chronic white matter infarction and ischemic change. CTA head: normal. EKG: sinus rhythm, TWI/ flattening in III, aVF. Echo (2018): EF 55%, impaired LV relaxation. Assessment and plan: 1. Expressive aphasia with RUE weakness 2. Acute ischemic stroke vs brain mets 3. Metastatic colonic adenocarcinoma s/p hemicolectomy 4. Elevated troponin likely demand ischemia 5. Bilateral DVT and PE s/p IVC filter on xarelto 6. Chronic blood loss anemia from colon cancer - Admit to Telemetry - Neurochecks Q2 - Fall, aspiration precautions - NPO - Aspirin and high dose statin - MRI brain w and w/o DONNIE - Serial EKG and troponin - No need to repeat Echo - Neuro and Cardio consult - Check lipid panel, TSH, free T4, A1C - Carotid dopplers - PT/OT/ speech-swallow therapist - Oncology Dr. Fortune to be informed about patient's admission DVT ppx xarelto. Full code.
[2018-02-12 04:00] VITALS: BP 127/59
[2018-02-12 04:44] LABS: ABSOLUTE BASOPHIL COUNT 0.1 /CUMM (0.0-0.2); ABSOLUTE EOSINOPHIL COUNT 0.7 /CUMM (0.0-0.7); ABSOLUTE GRANULOCYTE CT 9.6 /CUMM (1.4-6.5); ABSOLUTE LYMPH COUNT 1.4 /CUMM (1.2-3.4); ABSOLUTE MONOCYTE COUNT 0.8 /CUMM (0.10-0.60); BASOPHIL % 0.7 % (0.0-2.0); EOSINOPHIL % 5.5 % (0-5); GRANULOCYTE % 75.9 % (42.2-75.2); HEMATOCRIT 26.9 % (42-52); MEAN CORPUSCULAR HGB 25.8 PG (27.0-31.0); MEAN CORPUSCULAR HGB CONC 31.8 G/DL (33.0-37.0); MEAN CORPUSCULAR VOLUME 81.1 FL (80.0-94.0); MEAN PLATELET VOLUME 8.3 FL (7.4-10.4); PLATELET COUNT 476 /CUMM (130-400); RBC DISTRIBUTION WIDTH 15.4 % (11.5-14.5); RED BLOOD CELL CT 3.31 /CUMM (4.70-6.10); WHITE BLOOD CELL COUNT 12.6 /CUMM (4.8-10.8)
--- NOTE | 2018-02-12 05:50 | Admission Certification ---
Admission Certification Certification Statement - As attending physician, I certify that at the time of - admission, based on clinical presentation, severity of - symptoms, need for further diagnostic testing and - therapeutic interventions, and risk of adverse outcomes - without in-hospital treatment, in my clinical assessment, - this patient requires an acute hospital stay for a minimum - of two nights or longer. I have also considered psychsocial - factors such as support system, advanced age, financial - issues, cognitive issues, and failed out-patient treatments, - past re-admission history, safety of patient, and lack of - compliance as applicable. Specific rationale supporting this admission is: Expressive aphasia, acute stroke. Rule out brain mets in this patient with metastatic colon cancer.
--- NOTE | 2018-02-12 07:11 | Cons- Oncology ---
General Information and HPI Consulting Request Date of Consult: 02/12/18 Requested By: Jose M CORTES,Syed Reason for Consult: metastatic colon cancer, CVA Source of Information: patient, old records Exam Limitations: clinical condition History of Present Illness: Mr. Salter is a 67-year-old male with HTN, HLD, EtOH pancreatitis, OA, DVT/PE s /p IVC filter and currently on rivaroxaban, and stage IV adenocarcinoma of the colon with metastases to the liver s/p right hemicolectomy who presented with word finding difficulty, slurred speech, and right sided weakness. He states symptoms started Saturday morning around 8AM. He was seen last week in the clinic and was noted to have right sided headaches. CT of the head with contrast was planned. The symptoms didn't improved and his brought him to the ER to be evaluated. He denies any confusion, vision changes, facial drooping, numbness, falls, or significant weakness. He does have some trouble with dropping stuff at times. On presentation to the ER, he continues to have slurred speech and word finding difficulty. CT head and CTA of the head were done and were unremarkable. He had some elevation in troponin. He had a leukocytosis and anemia was stable. He was given aspirin and placed on telemetry. He continues to have word finding difficulties this morning. He denies any confusion. He is frustrated with the word finding difficulties. Allergies/Medications Allergies: Coded Allergies: No Known Allergies (09/13/17) Home Med List: Amlodipine Besylate 5 MG TABLET 1 TAB PO DAILY BP (Reported) Losartan Potassium 100 MG TABLET 1 TAB PO DAILY BP (Reported) Meloxicam 7.5 MG TABLET 1 TAB PO DAILY inflammation pain (Reported) Rivaroxaban (Xarelto) 15 MG TABLET 1 TAB PO BID pulmonary embolism take 1 tab (15 mg) twice a day for 3 weeks then switch to 1 tab (20 mg) daily with food. Current Medications: Current Medications Sig/Natalee Start time Last Medication Dose Route Stop Time Status Admin Acetaminophen 650 MG Q6P PRN 02/12 0230 AC PO Amlodipine Besylate 5 MG DAILY 02/12 1000 AC PO Aspirin 0 .STK-MED ONE 02/12 0320 DC PO Aspirin 81 MG DAILY 02/12 0300 AC 02/12 PO 0320 Atorvastatin Calcium 40 MG 1700 02/12 0300 AC PO Cyclobenzaprine HCl 0 .STK-MED ONE 02/12 010 DC PO Cyclobenzaprine HCl 10 MG ONCE ONE 02/12 0100 DC 02/12 PO 02/12 010 0102 Hydrocodone Bitart/ 0 .STK-MED ONE 02/12 0105 DC Acetaminophen PO Hydrocodone Bitart/ 1 TAB ONCE ONE 02/12 0100 DC 02/12 Acetaminophen PO 02/12 0101 0102 Losartan Potassium 100 MG DAILY 02/12 1000 AC PO Oxycodone/ 1 TAB Q6P PRN 02/12 0230 AC 02/12 Acetaminophen PO 0349 Rivaroxaban 15 MG BID 02/12 1000 AC PO Zolpidem Tartrate 0 .STK-MED ONE 02/12 0155 DC PO Zolpidem Tartrate 5 MG ONCE ONE 02/12 014 DC 02/12 PO 02/12 014 0155 Review of Systems Review of Systems Constitutional: Reports: weakness. Denies: chills, fever, malaise. EENTM: Denies: blurred vision, double vision. Cardiovascular: Denies: chest pain. Respiratory: Denies: short of breath. GI: Reports: abdominal pain. Genitourinary: Denies: dysuria. Musculoskeletal: Reports: back pain, joint pain. Neurological/Psychological: Reports: ataxia, headache, weakness (right), other (slurred speech). Hematologic/Endocrine: Denies: bruising, bleeding. 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 Home Who Do You Live With? spouse Services at Home: None Primary Language: Georgian Smoking Status: Never Smoked ETOH Use: unknown Illicit Drug Use: unknown Other Social History: Unknown Functional Ability ADLs Independent: dressing, eating, toileting, bathing. Ambulation: independent IADLs Independent: shopping, housework, finances, food prep, telephone, transportation , medication admin. Exam & Diagnostic Data Vital Signs and I&O Vital Signs Date Time Temp Pulse Resp B/P B/P Pulse O2 O2 Flow FiO2 Mean Ox Delivery Rate 02/12 0400 97.6 101 20 127/59 98 Room Air 02/12 0236 97.8 93 18 134/58 97 Room Air 02/12 0053 97.8 110 18 145/62 100 Room Air 02/11 2212 Room Air 02/11 2131 98.0 88 16 150/70 99 Room Air Room Air Intake & Output 02/12 0800 02/12 0000 02/11 1600 Intake Total 120 Output Total Balance 120 Intake, Oral 120 Patient 92.986 kg Weight Weight Bed scale Measurement Method Physical Exam General Appearance: no apparent distress, alert, awake, comfortable Head: atraumatic, normal appearance Eyes: Bilateral: PERRL, EOMI. Neck: supple Respiratory: normal breath sounds, chest non-tender, no respiratory distress, quiet respiration Cardiovascular: regular rate/rhythm Gastrointestinal: normal bowel sounds, soft, non-tender Extremities: no edema Neurologic/Psych: awake, alert, oriented x 3, slurred speech, no facial droop, word finding difficulty Cranial Nerves: PERRL, abnormal speech Skin: normal color Lymphatic: no anterior cervical sraa Last 48 Hours of Lab Results: Laboratory Tests 02/12 02/12 0400 0400 Chemistry Sodium (137 - 145 mmol/L) 140 Potassium (3.5 - 5.1 mmol/L) 4.0 Chloride (98 - 107 mmol/L) 101 Carbon Dioxide (22 - 30 mmol/L) 25 Anion Gap (5 - 16) 14 BUN (9 - 20 mg/dL) 14 Creatinine (0.7 - 1.2 mg/dL) 0.8 Estimated GFR (>60 ml/min) > 60 BUN/Creatinine Ratio (7 - 25 %) 17.5 Hemoglobin A1c (4.2 - 5.8 %) Pending Troponin I (<0.11 ng/ml) 0.36 *H Triglycerides (<150 mg/dL) 123 Cholesterol (< 200 MG/DL) 145 LDL Cholesterol, Calc (65 - 129 mg/dL) 73 HDL Cholesterol (40 - 60 mg/dL) 48 Cholesterol/HDL Ratio (0.00 - 4.88 %) 3 TSH (0.270 - 4.200 uIU/mL) 1.060 Free T4 (0.78 - 2.44 ng/dL) 1.67 Hematology CBC w Diff NO MAN DIFF REQ WBC (4.8 - 10.8 /CUMM) 12.6 H RBC (4.70 - 6.10 /CUMM) 3.31 L Hgb (14.0 - 18.0 G/DL) 8.6 L Hct (42 - 52 %) 26.9 L MCV (80.0 - 94.0 FL) 81.1 MCH (27.0 - 31.0 PG) 25.8 L MCHC (33.0 - 37.0 G/DL) 31.8 L RDW (11.5 - 14.5 %) 15.4 H Plt Count (130 - 400 /CUMM) 476 H MPV (7.4 - 10.4 FL) 8.3 Gran % (42.2 - 75.2 %) 75.9 H Lymphocytes % (20.5 - 51.1 %) 11.4 L Monocytes % (1.7 - 9.3 %) 6.5 Eosinophils % (0 - 5 %) 5.5 H Basophils % (0.0 - 2.0 %) 0.7 Absolute Granulocytes (1.4 - 6.5 /CUMM) 9.6 H Absolute Lymphocytes (1.2 - 3.4 /CUMM) 1.4 Absolute Monocytes (0.10 - 0.60 /CUMM) 0.8 H Absolute Eosinophils (0.0 - 0.7 /CUMM) 0.7 Absolute Basophils (0.0 - 0.2 /CUMM) 0.1 02/11 2205 Chemistry Sodium (137 - 145 mmol/L) 141 Potassium (3.5 - 5.1 mmol/L) 4.0 Chloride (98 - 107 mmol/L) 102 Carbon Dioxide (22 - 30 mmol/L) 29 Anion Gap (5 - 16) 9 BUN (9 - 20 mg/dL) 16 Creatinine (0.7 - 1.2 mg/dL) 0.8 Estimated GFR (>60 ml/min) > 60 BUN/Creatinine Ratio (7 - 25 %) 20.0 Glucose (65 - 99 mg/dL) 111 H Calcium (8.4 - 10.2 mg/dL) 9.0 Total Bilirubin (0.2 - 1.3 mg/dL) 0.4 AST (17 - 59 U/L) 18 ALT (21 - 72 U/L) 27 Alkaline Phosphatase (< 127 U/L) 104 Troponin I (<0.11 ng/ml) 0.42 *H Total Protein (6.3 - 8.2 g/dL) 6.7 Albumin (3.5 - 5.0 g/dL) 3.5 Globulin (1.9 - 4.2 gm/dL) 3.2 Albumin/Globulin Ratio (1.1 - 2.2 %) 1.1 Coagulation PT (9.4 - 12.5 SEC) 24.9 H INR (0.90 - 1.17) 2.27 H APTT (25 - 37 SEC) 29 Hematology CBC w Diff NO MAN DIFF REQ WBC (4.8 - 10.8 /CUMM) 12.7 H RBC (4.70 - 6.10 /CUMM) 3.35 L Hgb (14.0 - 18.0 G/DL) 8.8 L Hct (42 - 52 %) 27.0 L MCV (80.0 - 94.0 FL) 80.6 MCH (27.0 - 31.0 PG) 26.2 L MCHC (33.0 - 37.0 G/DL) 32.5 L RDW (11.5 - 14.5 %) 15.6 H Plt Count (130 - 400 /CUMM) 486 H MPV (7.4 - 10.4 FL) 8.1 Gran % (42.2 - 75.2 %) 67.7 Lymphocytes % (20.5 - 51.1 %) 14.1 L Monocytes % (1.7 - 9.3 %) 7.9 Eosinophils % (0 - 5 %) 9.4 H Basophils % (0.0 - 2.0 %) 0.9 Absolute Granulocytes (1.4 - 6.5 /CUMM) 8.6 H Absolute Lymphocytes (1.2 - 3.4 /CUMM) 1.8 Absolute Monocytes (0.10 - 0.60 /CUMM) 1.0 H Absolute Eosinophils (0.0 - 0.7 /CUMM) 1.2 Absolute Basophils (0.0 - 0.2 /CUMM) 0.1 Assessment/Plan Assessment: Mr. Salter is a 67-year-old male with HTN, HLD, EtOH pancreatitis, OA, DVT/PE s /p IVC filter and currently on rivaroxaban, and stage IV adenocarcinoma of the colon with metastases to the liver s/p right hemicolectomy who presented with word finding difficulty, slurred speech, and right sided weakness. He states symptoms started Saturday morning around 8AM. His presentation is concerning for CVA. CT head without contrast and CTA head were done and was unremarkable. It would be reasonable to obtain MRI/MRA of the head and neck. He has no obvious metastatic disease or ICH. He should also be elevated for infection. Neurology should be consulted. With his metastatic colon cancer, he is due to get port placed and have chemotherapy started in the next 1-2 weeks. Pathology is still pending KRAS and BRAF status. He should be continued on rivaroxaban for his PE/DVT. Recommendations: CVA: -MRI/MRA head/neck -neurology evaluation -continue anticoagulation -check blood cultures/UA Metastatic colon cancer: -bone scan to evaluate for metastatic disease -plan for port placement -plan for outpatient chemotherapy -follow up pathology for KRAS/BRAF status -follow up as outpatient DVT/PE: -continue anticoagulation Problem List: 1. Pulmonary emboli 2. DVT (deep venous thrombosis) 3. Adenocarcinoma of colon metastatic to liver 4. CVA (cerebral vascular accident) Other Findings/Comments: Please call [phone] with any questions or concerns. Consult Acknowledgment - Thank you for your consult request.
[2018-02-12 07:23] VITALS: BP 134/60
--- NOTE | 2018-02-12 07:35 | PN- Housestaff ---
EmilBrandi Audi Lara 02/12/18 0734: Subjective Follow-up For: 1. Expressive aphasia with RUE weakness 2. Acute ischemic stroke vs brain mets 3. Metastatic colonic adenocarcinoma s/p hemicolectomy 4. Elevated troponin likely demand ischemia 5. Bilateral DVT and PE s/p IVC filter on xarelto 6. Chronic blood loss anemia from colon cancer Tele-Events Since Last Visit: NSR Subjective: No overnight event. Patient appeared sad regarding this new-onset symptom and would not like to talk much pending MRI results. Review of Systems Constitutional: Reports: see HPI. Objective Last 24 Hrs of Vital Signs/I&O Vital Signs Date Time Temp Pulse Resp B/P B/P Pulse O2 O2 Flow FiO2 Mean Ox Delivery Rate 02/12 0951 94 134/60 02/12 0951 88 134/60 02/12 0723 98.2 84 20 134/60 95 Room Air 02/12 0400 97.6 101 20 127/59 98 Room Air 02/12 0236 97.8 93 18 134/58 97 Room Air 02/12 0053 97.8 110 18 145/62 100 Room Air 02/11 2212 Room Air 02/11 2131 98.0 88 16 150/70 99 Room Air Room Air Intake & Output 02/12 1600 02/12 0800 02/12 0000 Intake Total 120 Output Total Balance 120 Intake, Oral 120 Patient 92.986 kg Weight Weight Bed scale Measurement Method Physical Exam General Appearance: Alert, Oriented X3, No Acute Distress Cardiovascular: Regular Rate Current Medications: Current Medications Sig/Natalee Start time Last Medication Dose Route Stop Time Status Admin Acetaminophen 650 MG Q6P PRN 02/12 0230 AC PO Alprazolam 0.5 MG ONCE ONE 02/12 1015 DC 02/12 PO 02/12 1016 1035 Amlodipine Besylate 5 MG DAILY 02/12 1000 AC 02/12 PO 0951 Aspirin 0 .STK-MED ONE 02/12 0320 DC PO Aspirin 81 MG DAILY 02/12 0300 AC 02/12 PO 0949 Atorvastatin Calcium 40 MG 1700 02/12 0300 AC PO Cyclobenzaprine HCl 0 .STK-MED ONE 02/12 0105 DC PO Cyclobenzaprine HCl 10 MG ONCE ONE 02/12 0100 DC 02/12 PO 02/12 0101 0102 Hydrocodone Bitart/ 0 .STK-MED ONE 02/12 010 DC Acetaminophen PO Hydrocodone Bitart/ 1 TAB ONCE ONE 02/12 0100 DC 02/12 Acetaminophen PO 02/12 101 010 Losartan Potassium 100 MG DAILY 02/12 1000 AC 02/12 PO 0951 Oxycodone/ 1 TAB Q6P PRN 02/12 0230 AC 02/12 Acetaminophen PO 0952 Rivaroxaban 15 MG BID 02/12 1000 AC 02/12 PO 0951 Zolpidem Tartrate 0 .STK-MED ONE 02/12 0155 DC PO Zolpidem Tartrate 5 MG ONCE ONE 02/12 0145 DC 02/12 PO 02/12 0146 0155 Last 24 Hrs of Lab/Marlon Results Last 24 Hrs of Labs/Mics: Laboratory Tests 02/12/18 1115: Troponin I Pending 02/12/18 040: Hemoglobin A1c 5.1, Troponin I 0.36 *H, Triglycerides 123, Cholesterol 145, LDL Cholesterol, Calc 73, HDL Cholesterol 48, Cholesterol/HDL Ratio 3 02/12/18 0400: Anion Gap 14, Estimated GFR > 60, BUN/Creatinine Ratio 17.5, TSH 1.060, Free T4 1.67, CBC w Diff NO MAN DIFF REQ, RBC 3.31 L, MCV 81.1, MCH 25.8 L, MCHC 31.8 L, RDW 15.4 H, MPV 8.3, Gran % 75.9 H, Lymphocytes % 11.4 L, Monocytes % 6.5, Eosinophils % 5.5 H, Basophils % 0.7, Absolute Granulocytes 9.6 H, Absolute Lymphocytes 1.4, Absolute Monocytes 0.8 H, Absolute Eosinophils 0.7, Absolute Basophils 0.1 02/11/182204: Anion Gap 9, Estimated GFR > 60, BUN/Creatinine Ratio 20.0, Glucose 111 H, Calcium 9.0, Total Bilirubin 0.4, AST 18, ALT 27, Alkaline Phosphatase 104, Troponin I 0.42 *H, Total Protein 6.7, Albumin 3.5, Globulin 3.2, Albumin/ Globulin Ratio 1.1, PT 24.9 H, INR 2.27 H, APTT 29, CBC w Diff NO MAN DIFF REQ , RBC 3.35 L, MCV 80.6, MCH 26.2 L, MCHC 32.5 L, RDW 15.6 H, MPV 8.1, Gran % 67.7, Lymphocytes % 14.1 L, Monocytes % 7.9, Eosinophils % 9.4 H, Basophils % 0.9, Absolute Granulocytes 8.6 H, Absolute Lymphocytes 1.8, Absolute Monocytes 1.0 H, Absolute Eosinophils 1.2, Absolute Basophils 0.1 Assessment/Plan Assessment: Mr. Salter is a 67-year-old unfortunate male with past medical history significant for hypertension, hyperlipidemia, alcohol induced pancreatitis, osteoarthritis, bilateral lower extremity DVT, bilateral unprovoked pulmonary embolism on Xarelto 15 twice daily, colon cancer status post resection presented to the emergency department with chief complaint of change in speech since 02/11 8 AM, and RUE stiffness (cannot make a fist) which was self-resolved. ------- Vitals Afebrile, heart rate 90, respiratory rate 16, blood pressure 1 5270, saturating at 99 on room air On exam HEENT within normal limits, no JVD, S1-S2 normal no murmurs, bilateral breath sounds normal, Abdomen soft nontender nondistended Motor strength 5 out of 5 left, 4 out of 5 right, sensory exam within normal limit, cranial nerve exam 2-12 normal, cerebellar exam abnormal. Pertinent labs Leukocytosis 12.7, hemoglobin 8.8, hematocrit 27, platelets 486 CMP within normal limits EKG 77, sinus rhythm, no ST-T wave changes. CT head Evidence of chronic white matter infarction and ischemic change. No acute midline shift, mass effect or hemorrhage here. CTA head normal Ruling out stroke Patient presented with speech changes, expressive aphasia since 8 AM on the day of admission. Also reports difficulty with right hand grasping, however self- resolved. Mild weakness noticed on right side. However CT head, CTA head was negative. Given his recent anticoagulation, Hemorrhage was ruled out. However given all his his risk factors- deep vein thrombosis, pulmonary embolism, cancer history, further workup should be done. * Continue telemetry * Monitor vitals every shift * NIH stroke scale, mostly 2-4 * Fall precautions * Aspirin 81 daily * Lipitor 40 daily * Follow-up MRi w/ & w/o DONNIE for any infarct * Follow-up carotid Doppler * Recent echo in December 2017 showed ejection fraction 55% with impaired left ventricular relaxation * Cardio consult * Neuro consult * PTOT * Speech and swallow * Passed bedside swallow eval * Follow-up HbA1c and lipid panel (WNL) Elevated troponin On presentation, patient had mildly elevated troponin. Patient was recently admitted here and had a type II ID, demand ischemia. Troponin 0.42 at the time of admission. EKG showed sinus rhythm, rates of [address]-T wave changes. Looks like a type II ID/demand ischemia from PE. * Serial troponin and EKG had been trending down to 0.36 on 2nd set. * Cardiology consult * Telemetry monitoring * Echo based on cardiology recommendation * Continue aspirin and Lipitor as above Stage IV colon cancer with liver metastasis: During his last admission, Endoscopy revealed submucosal nodule second portion of the duodenum, scattered gastric erosions with no stigmata of bleeding, and non-obstructing schtazki's ring. Colonoscopy revealed an ileocecal valve mass which pathology subsequently showed to be invasive moderately to poorly differentiated adenocarcinoma. Oncology was consulted and recommended CT abdomen /pelvis that revealed metastatic disease with large mesenteric lymph nodes, retroperitoneal and upper abdominal lymph nodes, and suspected hepatic metastases with no evidence of bowel obstruction. Underwent hemicolectomy and he has been following up with oncologist as an outpatient to start chemotherapy. - Pending MRI for r/o CVA, and if any brain metastases. Bilateral Lower Extremity DVTs and Bilateral PE s/p IVC Filter placement: Patient was recently admitted for bilateral lower extremity DVTs and PE. Because he needed to have a hemicolectomy, an IVC filter was placed by vascular surgery. * xaralto 15 mg twice daily for 1 more week and then start 20 mg daily Hypertension * Continue amlodipine 5 daily and losartan 100 daily Chronic back pain * Continue Tylenol for mild pain and Percocet for moderate to severe. Patient is full code DVT prophylaxis on Xarelto + ALPS Regular diet Problem List: 1. Alcohol use 2. Adenocarcinoma of colon metastatic to liver 3. CVA (cerebral vascular accident) Pain Ratin Pain Location: NA Pain Goal: Remain pain free Pain Plan: see AP Tomorrow's Labs & Rationales: LUIS Lamas MD,Jaydanay 02/12/18 1449: Attending MD Review Statement Attending Statement Attending MD Statement: examined this patient, discuss w/resident/PA/HOUSING GRANT ANALYST, agreed w/resident/PA/HOUSING GRANT ANALYST, reviewed EMR data (avail), discussed with nursing, discussed with case mgmt, amended to note Attending Assessment/Plan: Patient seen and examined. He is very frustrated about his inability to express himself verbally. He clearly understands what is being said but is unable to express himself. Speech is garbled when he is able to vocalize himself. On examination he has mild weakness in the right upper and lower extremities. He is not in any respiratory distress. An MRI of the brain was attempted today to confirm diagnosis of stroke rule out any cerebral metastatic process however patient complained of back discomfort I was unable to tolerate the procedure. He reports that the back pain is chronic. He is on Percocet at home for this. Recommendations: -Reattempt MRI tomorrow. -Begin patient on Xanax 0.25 mg orally daily. -Continue PT/OT evaluation. Will need placement in an acute rehab facility upon discharge. -Continue anticoagulant therapy for his DVT/PE. -Follow-up with cardiology service regarding his elevated troponins. Troponins were elevated in the past when he had his DVT/PE at that time was attributed to his thromboembolic events. His current troponin rise is likely related to his stroke. Follow-up with the cardiology service regarding the need for ischemic workup. -Continue pain management with Percocet. We will escalated pain management as needed. -Patient to follow-up with the hematology/oncology service as an outpatient for PET scan to rule out diffuse metastasis. If back pain is requiring escalating pain medications he will benefit from imaging in the hospital to rule out metastatic lesions of the lower back.
--- NOTE | 2018-02-12 10:13 | Cons- Neurology ---
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 He states symptoms started yesterday morning around 8AM. There is no family history of stroke to his knowledge. He is a former smoker. Allergies/Medications Allergies: Coded Allergies: No Known Allergies (09/13/17) Home Med List: Amlodipine Besylate 5 MG TABLET 1 TAB PO DAILY BP (Reported) Losartan Potassium 100 MG TABLET 1 TAB PO DAILY BP (Reported) Meloxicam 7.5 MG TABLET 1 TAB PO DAILY inflammation pain (Reported) Rivaroxaban (Xarelto) 15 MG TABLET 1 TAB PO BID pulmonary embolism take 1 tab (15 mg) twice a day for 3 weeks then switch to 1 tab (20 mg) daily with food. Current Medications: Current Medications Sig/Natalee Start time Last Medication Dose Route Stop Time Status Admin Acetaminophen 650 MG Q6P PRN 02/12 0230 AC PO Alprazolam 0.5 MG ONCE ONE 02/12 1015 AC PO 02/12 1016 Amlodipine Besylate 5 MG DAILY 02/12 1000 AC 02/12 PO 0951 Aspirin 0 .STK-MED ONE 02/12 0320 DC PO Aspirin 81 MG DAILY 02/12 0300 AC 02/12 PO 0949 Atorvastatin Calcium 40 MG 1700 02/12 0300 AC PO Cyclobenzaprine HCl 0 .STK-MED ONE 02/12 0105 DC PO Cyclobenzaprine HCl 10 MG ONCE ONE 02/12 0100 DC 02/12 PO 02/12 010 0102 Hydrocodone Bitart/ 0 .STK-MED ONE 02/12 0105 DC Acetaminophen PO Hydrocodone Bitart/ 1 TAB ONCE ONE 02/12 0100 DC 02/12 Acetaminophen PO 02/12 0101 0102 Losartan Potassium 100 MG DAILY 02/12 1000 AC 02/12 PO 0951 Oxycodone/ 1 TAB Q6P PRN 02/12 0230 AC 02/12 Acetaminophen PO 0952 Rivaroxaban 15 MG BID 02/12 1000 AC 02/12 PO 0951 Zolpidem Tartrate 0 .STK-MED ONE 02/12 0155 DC PO Zolpidem Tartrate 5 MG ONCE ONE 02/12 0145 DC 02/12 PO 02/12 0146 0155 Review of Systems Review of Systems: REVIEW OF SYSTEMS: (-) = negative / normal blank = not discussed Neurologic: see HPI Eyes: Wears glasses ENT: Pending swallow evaluation Constitutional: (-) CV: (-) Respiratory: (-) /Renal: (-) Musculoskeletal: (-) Skin: (-) Psychiatric: Reports feeling anxious about his current speech difficulties Heme: (-) GI: See HPI Allergy/Immune: (-) Endocrine: (-) Other: (-) Past History Travel History Traveled to [place] past 21 day No Medical History Blood Transfusion Hx: No Neurological: NONE EENT: NONE Cardiovascular: hypertension, hyperlipidemia Respiratory: NONE Gastrointestinal: pancreatitis Hepatic: NONE Renal: NONE Musculoskeletal: osteoarthritis, rotator cuff injury Psychiatric: NONE Endocrine: NONE Blood Disorders: DVT, PE 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 Home Who Do You Live With? spouse Services at Home: None Primary Language: Frisian Smoking Status: Never Smoked ETOH Use: unknown Illicit Drug Use: unknown Other Social History: Unknown Functional Ability ADLs Independent: dressing, eating, toileting, bathing. Ambulation: independent IADLs Independent: shopping, housework, finances, food prep, telephone, transportation , medication admin. Exam & Diagnostic Data Vital Signs and I&O Vital Signs Date Time Temp Pulse Resp B/P B/P Pulse O2 O2 Flow FiO2 Mean Ox Delivery Rate 02/12 0951 94 134/60 02/12 0951 88 134/60 02/12 0723 98.2 84 20 134/60 95 Room Air 02/12 0400 97.6 101 20 127/59 98 Room Air 02/12 0236 97.8 93 18 134/58 97 Room Air 02/12 0053 97.8 110 18 145/62 100 Room Air 02/11 2212 Room Air 03/20 2131 98.0 88 16 150/70 99 Room Air Room Air Intake & Output 02/12 1600 02/12 0800 02/12 0000 Intake Total 120 Output Total Balance 120 Intake, Oral 120 Patient 205 lb Weight Weight Bed scale Measurement Method Physical Exam: Awake and alert, seated at the edge of the bed Head normocephalic atraumatic Neck supple No audible carotid or cranial bruits Heart regular rate and rhythm Extremities without clubbing cyanosis or edema Neurologic exam: Awake, alert, oriented Moderate dysarthria and apraxia of speech, with preserved comprehension Becomes frustrated and tearful when attempting to speak Cranial nerves: Visual morin full to confrontation Fundi benign Pupils equal round reactive to light Extraocular movements full Mild right lower facial weakness Symmetric elevation of the uvula and palate. Symmetric shoulder shrug Midline tongue protrusion Grossly intact hearing Motor: Mild right-sided weakness in the 4 out of 5 range. Left-sided strength normal. No abnormal involuntary movements. Rapid alternating and fine motor movements mildly impaired on the right Sensation of light touch and pin intact Tendon reflexes diffusely hypoactive Plantar responses flexor on the left extensor on the right Gait not tested Last 48 Hours of Lab Results: Laboratory Tests 02/12 02/12 0400 0400 Chemistry Sodium (137 - 145 mmol/L) 140 Potassium (3.5 - 5.1 mmol/L) 4.0 Chloride (98 - 107 mmol/L) 101 Carbon Dioxide (22 - 30 mmol/L) 25 Anion Gap (5 - 16) 14 BUN (9 - 20 mg/dL) 14 Creatinine (0.7 - 1.2 mg/dL) 0.8 Estimated GFR (>60 ml/min) > 60 BUN/Creatinine Ratio (7 - 25 %) 17.5 Hemoglobin A1c (4.2 - 5.8 %) 5.1 Troponin I (<0.11 ng/ml) 0.36 *H Triglycerides (<150 mg/dL) 123 Cholesterol (< 200 MG/DL) 145 LDL Cholesterol, Calc (65 - 129 mg/dL) 73 HDL Cholesterol (40 - 60 mg/dL) 48 Cholesterol/HDL Ratio (0.00 - 4.88 %) 3 TSH (0.270 - 4.200 uIU/mL) 1.060 Free T4 (0.78 - 2.44 ng/dL) 1.67 Hematology CBC w Diff NO MAN DIFF REQ WBC (4.8 - 10.8 /CUMM) 12.6 H RBC (4.70 - 6.10 /CUMM) 3.31 L Hgb (14.0 - 18.0 G/DL) 8.6 L Hct (42 - 52 %) 26.9 L MCV (80.0 - 94.0 FL) 81.1 MCH (27.0 - 31.0 PG) 25.8 L MCHC (33.0 - 37.0 G/DL) 31.8 L RDW (11.5 - 14.5 %) 15.4 H Plt Count (130 - 400 /CUMM) 476 H MPV (7.4 - 10.4 FL) 8.3 Gran % (42.2 - 75.2 %) 75.9 H Lymphocytes % (20.5 - 51.1 %) 11.4 L Monocytes % (1.7 - 9.3 %) 6.5 Eosinophils % (0 - 5 %) 5.5 H Basophils % (0.0 - 2.0 %) 0.7 Absolute Granulocytes (1.4 - 6.5 /CUMM) 9.6 H Absolute Lymphocytes (1.2 - 3.4 /CUMM) 1.4 Absolute Monocytes (0.10 - 0.60 /CUMM) 0.8 H Absolute Eosinophils (0.0 - 0.7 /CUMM) 0.7 Absolute Basophils (0.0 - 0.2 /CUMM) 0.1 03/20 2205 Chemistry Sodium (137 - 145 mmol/L) 141 Potassium (3.5 - 5.1 mmol/L) 4.0 Chloride (98 - 107 mmol/L) 102 Carbon Dioxide (22 - 30 mmol/L) 29 Anion Gap (5 - 16) 9 BUN (9 - 20 mg/dL) 16 Creatinine (0.7 - 1.2 mg/dL) 0.8 Estimated GFR (>60 ml/min) > 60 BUN/Creatinine Ratio (7 - 25 %) 20.0 Glucose (65 - 99 mg/dL) 111 H Calcium (8.4 - 10.2 mg/dL) 9.0 Total Bilirubin (0.2 - 1.3 mg/dL) 0.4 AST (17 - 59 U/L) 18 ALT (21 - 72 U/L) 27 Alkaline Phosphatase (< 127 U/L) 104 Troponin I (<0.11 ng/ml) 0.42 *H Total Protein (6.3 - 8.2 g/dL) 6.7 Albumin (3.5 - 5.0 g/dL) 3.5 Globulin (1.9 - 4.2 gm/dL) 3.2 Albumin/Globulin Ratio (1.1 - 2.2 %) 1.1 Coagulation PT (9.4 - 12.5 SEC) 24.9 H INR (0.90 - 1.17) 2.27 H APTT (25 - 37 SEC) 29 Hematology CBC w Diff NO MAN DIFF REQ WBC (4.8 - 10.8 /CUMM) 12.7 H RBC (4.70 - 6.10 /CUMM) 3.35 L Hgb (14.0 - 18.0 G/DL) 8.8 L Hct (42 - 52 %) 27.0 L MCV (80.0 - 94.0 FL) 80.6 MCH (27.0 - 31.0 PG) 26.2 L MCHC (33.0 - 37.0 G/DL) 32.5 L RDW (11.5 - 14.5 %) 15.6 H Plt Count (130 - 400 /CUMM) 486 H MPV (7.4 - 10.4 FL) 8.1 Gran % (42.2 - 75.2 %) 67.7 Lymphocytes % (20.5 - 51.1 %) 14.1 L Monocytes % (1.7 - 9.3 %) 7.9 Eosinophils % (0 - 5 %) 9.4 H Basophils % (0.0 - 2.0 %) 0.9 Absolute Granulocytes (1.4 - 6.5 /CUMM) 8.6 H Absolute Lymphocytes (1.2 - 3.4 /CUMM) 1.8 Absolute Monocytes (0.10 - 0.60 /CUMM) 1.0 H Absolute Eosinophils (0.0 - 0.7 /CUMM) 1.2 Absolute Basophils (0.0 - 0.2 /CUMM) 0.1 Imaging/Other Studies: Hd CT & CTA: normal Assessment/Plan Assessment: On clinical grounds, findings consistent with an acute left MCA territory ischemic stroke History of hypertension, hyperlipidemia, tobacco use, colon cancer On anticoagulation for DVT/PE prior to admission Recommendations: Continue low-dose aspirin, statin Obtain a brain MRI Nothing by mouth pending speech therapy swallow assessment Also speech therapy for speech articulation and expressive language dysfunction Physical and occupational therapy Consider acute rehabilitation at the [facility] Consider starting an SSRI for anxiety/dysthymia Consult Acknowledgment - Thank you for your consult request.
--- NOTE | 2018-02-12 14:26 | ULTRASOUND REPORT ---
EXAMINATION: DUPLEX BILATERAL CAROTID ULTRASOUND CLINICAL INFORMATION: Stroke COMPARISON: None. TECHNIQUE: Duplex bilateral carotid US was performed using real-time ultrasound and Doppler techniques (integrating B-mode 2D vascular images, Doppler spectral analysis and color flow Doppler imaging). These techniques were utilized to interrogate the extracranial carotid and vertebral arteries bilaterally. The degree of stenosis is based off criteria similar to NASCET. FINDINGS: 1. On the right: Plaque is present at the carotid bifurcation but velocity measurements are normal and do not suggest a stenosis of greater than 50% diameter reduction in the right ICA. The right ECA demonstrates a mild stenosis with peak systolic velocity of under 200 cm/s. The vertebral artery is patent demonstrating antegrade flow. 2. On the left: Plaque is present at the carotid bifurcation but velocity measurements are normal and do not suggest a stenosis of greater than 50% diameter reduction in the left ICA. The left ECA demonstrates a mild stenosis with peak systolic velocity of under 200 cm/s. Left vertebral artery was not visualized. IMPRESSION: Plaque is present in the internal carotid arteries but velocity measurements are normal and there is no evidence to suggest a hemodynamically significant stenosis of greater than 50% diameter reduction. Left vertebral artery is not visualized.
[2018-02-12 14:51] VITALS: BP 146/65
--- NOTE | 2018-02-12 16:22 | Patient Discharge Instructions ---
Discharge Instructions General Discharge Information Watch for these problems: In case of nausea, vomiting, abdominal pain, bleeding please go to nearest emergency room. Special Instructions: - Please ask the receiving facility to call and make an appointment for you at [facility] outpatient psychiatry: [phone]. [address], [place] The patient will need ongoing medication management for escitalopram, or other psychotropic medications that may be added later. -Please recheck CBC tomorrow. - Please follow up with your neurologist Dr. Cobos within 1-2 weeks of discharge. - Please follow up with your pharmacy specialist Dr. Mckee within 1-2 weeks of discharge. - Please follow up with your primary care physician within 1-2 weeks of discharge. Inform your primary care physician of this admission to [facility]. - Continue your current medications per discharge instructions. - Please watch for these problems: Fever, Chills, Nausea, Vomiting, Shortness of Breath, Productive Cough, Chest Pain/Discomfort, Abdominal Pain, Active Bleeding or Bloody urine/stool. Diet Continue normal diet: Yes Recommended Diet: Heart Healthy Activity Full Activity/No Limits: Yes Acute Coronary Syndrome Inclusion Criteria At DC or during hospital stay patient has or had the following: ACS DIAGNOSIS No Discharge Core Measures Meds if any: Prescribed or Continued at Discharge Meds if any: NOT Prescribed or Continued at Discharge Congestive Heart Failure Inclusion Criteria At DC or during hospital stay patient has or had the following: CHF DIAGNOSIS No Discharge Core Measures Meds if any: Prescribed or Continued at Discharge Meds if any: NOT Prescribed or Continued at Discharge Cerebrovascular accident Inclusion Criteria At DC or during hospital stay patient has or had the following: CVA/TIA Diagnosis Yes Discharge Core Measures Meds if any: Prescribed or Continued at Discharge Antithrombotic No Statin (required if LDL =>70) Yes Anticoagulant Yes Meds if any: NOT Prescribed or Continued at Discharge No Antithrombotic d/t Medical Contraindication Venous thromboembolism Inclusion Criteria VTE Diagnosis No VTE Type NONE VTE Confirmed by (Test) NONE Discharge Core Measures - Per Current guidelines, there needs to be overlap - treatment for the first 5 days of Warfarin therapy. - If discharged on Warfarin prior to 5 days of - overlap therapy, the patient will need to be - assessed for post discharge needs including - *Post discharge parental anticoagulation - *Warfarin and/or parental anticoagulation education - *Follow up date to check INR post discharge At least 5 days overlap therapy as Inpatient No Meds if any: Prescribed or Continued at Discharge Note: Overlap Therapy is Warfarin and Anticoagulant Meds if any: NOT Prescribed or Continued at Discharge
[2018-02-12 17:41] VITALS: BP 140/60
--- NOTE | 2018-02-12 19:53 | Cons- Cardiology ---
General Information and HPI Consulting Request Date of Consult: 02/12/18 Requested By: Hema Lamas MD History of Present Illness: Fermin is a 67 year old male with history of hypertension, dyslipidemia and alcohol abuse with pancreatitis. He also carries a history of adenocarcinoma of the colon with metastases that was recently diagnosed after presenting to [facility] with severe shortness of breath and being found to have a DVT and multiple pulmonary emboli. During his recent admission he was lucid of thought and reported a 70 pound weight loss. He denied chest pain but did demonstrate positive cardiac enzymes. He was started on Xarelto and had an IVC filter placed. He also had a hemicolectomy. This patient was brought to the ER for evaluation of right sided weakness consistent with a CVA. He was noted to have elevated cardiac enzymes. The patient is currently agitated with a speech deficit and unable to offer a cogent history. He denies chest pain or shortness of breath. Allergies/Medications Allergies: Coded Allergies: No Known Allergies (09/13/17) Home Med List: Amlodipine Besylate 5 MG TABLET 1 TAB PO DAILY BP (Reported) Losartan Potassium 100 MG TABLET 1 TAB PO DAILY BP (Reported) Meloxicam 7.5 MG TABLET 1 TAB PO DAILY inflammation pain (Reported) Rivaroxaban (Xarelto) 15 MG TABLET 1 TAB PO BID pulmonary embolism take 1 tab (15 mg) twice a day for 3 weeks then switch to 1 tab (20 mg) daily with food. Review of Systems Review of Systems: A review of systems was not obtainable. 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 Home Who Do You Live With? spouse Services at Home: None Primary Language: Bahraini Smoking Status: Never Smoked ETOH Use: unknown Illicit Drug Use: unknown Other Social History: Unknown Functional Ability ADLs Independent: dressing, eating, toileting, bathing. Ambulation: independent IADLs Independent: shopping, housework, finances, food prep, telephone, transportation , medication admin. Exam & Diagnostic Data Vital Signs and I&O Vital Signs Date Time Temp Pulse Resp B/P B/P Pulse O2 O2 Flow FiO2 Mean Ox Delivery Rate 02/12 1741 80 140/60 02/12 1451 97.4 85 20 146/65 98 Room Air 02/12 0951 94 134/60 02/12 0951 88 134/60 02/12 0723 98.2 84 20 134/60 95 Room Air 02/12 0400 97.6 101 20 127/59 98 Room Air 02/12 0236 97.8 93 18 134/58 97 Room Air 02/12 0053 97.8 110 18 145/62 100 Room Air 02/11 2212 Room Air 02/11 2131 98.0 88 16 150/70 99 Room Air Room Air Intake & Output 02/12 1600 02/12 0800 02/12 0000 02/11 1600 02/11 0800 02/11 0000 Intake Total 200 120 Output Total 500 Balance -300 120 Intake, Oral 200 120 Output, Urine 500 Patient 205 lb Weight Weight Bed scale Measurement Method Physical Exam: General: WD/overweight male in NAD; confused and agitated HEENT: NC/AT, PERRL, EOMI Neck: no JVD, no carotid bruit Heart: RRR w/o murmur Lungs: clear bilaterally Abdomen: soft, NT, +ve bowel sounds Extremities: no edema Assessment/Plan Assessment/Plan * This patient has elevated cardiac enzymes without a typical rise and fall and without clear chest discomfort. He may have recurrent or persistent pulmonary emboli although myocardial ischemia cannot be excluded. Continue Xarelto and aspirin at 81mg daily. Add nitroglycerin paste 1/2 inch Q 6 hours and a statin. In consideration of the patient's co-morbidities we will treat him medically. Repeat an echocardiogram. Consult Acknowledgment - Thank you for your consult request.
[2018-02-12 22:29] VITALS: BP 148/62
[2018-02-13 06:34] VITALS: BP 124/62
--- NOTE | 2018-02-13 07:26 | PN- Housestaff ---
EmilBrandi 02/13/18 0726: Subjective Follow-up For: 1. Expressive aphasia with RUE weakness 2. Acute ischemic stroke vs brain mets 3. Metastatic colonic adenocarcinoma s/p hemicolectomy 4. Elevated troponin likely demand ischemia 5. Bilateral DVT and PE s/p IVC filter on xarelto 6. Chronic blood loss anemia from colon cancer Tele-Events Since Last Visit: NSR 70-90s Subjective: No overngiht event. Patietn still have difficulty finding words, and rated his back pain as 10/10. Appeared frustrated however would still want to try for MRI today. Patient was walking with a walker along with physical therapy in [address] this morning as well. Review of Systems Constitutional: Reports: see HPI. Objective Last 24 Hrs of Vital Signs/I&O Vital Signs Date Time Temp Pulse Resp B/P B/P Pulse O2 O2 Flow FiO2 Mean Ox Delivery Rate 02/13 0634 97.7 107 20 124/62 97 Room Air 02/12 2229 97.1 64 14 148/62 98 Room Air 02/12 1741 80 140/60 02/12 1451 97.4 85 20 146/65 98 Room Air 02/12 0951 94 134/60 02/12 0951 88 134/60 Intake & Output 02/13 1600 02/13 0800 02/13 0000 Intake Total 200 240 Output Total 450 Balance -250 240 Intake, Oral 200 240 Output, Urine 450 Patient 94.631 kg Weight Physical Exam General Appearance: Alert, Oriented X3, Cooperative, Mild Distress Cardiovascular: Regular Rate Lungs: Clear to Auscultation, Normal Air Movement Abdomen: Soft, No Tenderness Neurological: difficulty finding words, walks with walker Extremities: No Edema, Normal Pulses Current Medications: Current Medications Sig/Natalee Start time Last Medication Dose Route Stop Time Status Admin Acetaminophen 1,000 MG Q6P PRN 02/12 1745 AC N/A 1 UNIT IV Acetaminophen 650 MG Q6P PRN 02/12 0230 DC PO Alprazolam 0.25 MG DAILY 02/13 1000 AC PO 02/20 0959 Alprazolam 0.5 MG Q6P PRN 02/12 1430 DC 02/12 PO 02/19 1429 1422 Alprazolam 0.5 MG ONCE ONE 02/12 1015 DC 02/12 PO 02/12 1016 1035 Amlodipine Besylate 5 MG DAILY 02/12 1000 AC 02/12 PO 0951 Aspirin 81 MG DAILY 02/12 0300 AC 02/12 PO 0949 Atorvastatin Calcium 40 MG 1700 02/12 0300 AC 02/12 PO 1700 Cyclobenzaprine HCl 10 MG TID PRN 02/12 1545 AC 02/13 PO 0525 Losartan Potassium 100 MG DAILY 02/12 1000 AC 02/12 PO 0951 Morphine Sulfate 2 MG Q6-PRN PRN 02/12 1745 AC 02/13 IV 0341 Morphine Sulfate 2 MG ONCE ONE 02/12 1315 DC IV 02/12 1316 Nitroglycerin 0.5 GM Q6 02/13 0600 AC 02/13 TOP 0548 Oxycodone/ 1 TAB Q4P PRN 02/12 1745 AC 02/12 Acetaminophen PO 2057 Oxycodone/ 1 TAB Q6P PRN 02/12 0230 DC 02/12 Acetaminophen PO 1517 Rivaroxaban 15 MG BID 02/12 1000 AC 02/12 PO 2057 Zolpidem Tartrate 5 MG ONCE ONE 02/12 2315 DC 02/12 PO 02/12 2316 2335 Last 24 Hrs of Lab/Marlon Results Last 24 Hrs of Labs/Mics: Laboratory Tests 02/13/18 0643: CBC w Diff Pending, WBC Pending, RBC Pending, Hgb Pending, Hct Pending, MCV Pending, MCH Pending, MCHC Pending, RDW Pending, Plt Count Pending, MPV Pending 02/12/18 1115: Troponin I 0.32 *H Assessment/Plan Assessment: Mr. Salter is a 67-year-old unfortunate male with past medical history significant for hypertension, hyperlipidemia, alcohol induced pancreatitis, osteoarthritis, bilateral lower extremity DVT, bilateral unprovoked pulmonary embolism on Xarelto 15 twice daily, colon cancer status post resection presented to the emergency department with chief complaint of change in speech since 02/11 8 AM, and RUE stiffness (cannot make a fist) which was self-resolved. ------- Vitals Afebrile, heart rate 90, respiratory rate 16, blood pressure 1 5270, saturating at 99 on room air On exam HEENT within normal limits, no JVD, S1-S2 normal no murmurs, bilateral breath sounds normal, Abdomen soft nontender nondistended Motor strength 5 out of 5 left, 4 out of 5 right, sensory exam within normal limit, cranial nerve exam 2-12 normal, cerebellar exam abnormal. Pertinent labs Leukocytosis 12.7, hemoglobin 8.8, hematocrit 27, platelets 486 CMP within normal limits EKG 77, sinus rhythm, no ST-T wave changes. CT head Evidence of chronic white matter infarction and ischemic change. No acute midline shift, mass effect or hemorrhage here. CTA head normal Ruling out stroke Patient presented with speech changes, expressive aphasia since 8 AM on the day of admission. Also reports difficulty with right hand grasping, however self- resolved. Mild weakness noticed on right side. However CT head, CTA head was negative. Given his recent anticoagulation, Hemorrhage was ruled out. However given all his his risk factors- deep vein thrombosis, pulmonary embolism, cancer history, further workup should be done. * May discontinue telemetry * Monitor vitals every shift * NIH stroke scale overnight mostly 3-4, unchanged from previous days * Fall precautions * Aspirin 81 daily * Lipitor 40 daily * Follow-up MRi w/ & w/o DONNIE for any infarct * Follow-up carotid Doppler * Recent echo in December 2017 showed ejection fraction 55% with impaired left ventricular relaxation * Cardio consult recommended adding NG ointment 0.5gm q6. * Neuro consult appreciated, pending MRI reattempt today * PTOT * Speech and swallow recommended Puree/thin liquid * HbA1c 5.1 and lipid panel (WNL) Elevated troponin On presentation, patient had mildly elevated troponin. Patient was recently admitted here and had a type II [place], demand ischemia. Troponin 0.42 at the time of admission. EKG showed sinus rhythm, rates of [address]-T wave changes. Looks like a type II [place]/demand ischemia from PE. * Serial troponin and EKG had been trending down to 0.32. * Cardiology consult as above * Pending Echo * Continue aspirin and Lipitor as above Stage IV colon cancer with liver metastasis: During his last admission, Endoscopy revealed submucosal nodule second portion of the duodenum, scattered gastric erosions with no stigmata of bleeding, and non-obstructing schtazki's ring. Colonoscopy revealed an ileocecal valve mass which pathology subsequently showed to be invasive moderately to poorly differentiated adenocarcinoma. Oncology was consulted and recommended CT abdomen /pelvis that revealed metastatic disease with large mesenteric lymph nodes, retroperitoneal and upper abdominal lymph nodes, and suspected hepatic metastases with no evidence of bowel obstruction. Underwent hemicolectomy and he has been following up with oncologist as an outpatient to start chemotherapy. - Pending MRI for r/o CVA, and if any brain metastases. Bilateral Lower Extremity DVTs and Bilateral PE s/p IVC Filter placement: Patient was recently admitted for bilateral lower extremity DVTs and PE. Because he needed to have a hemicolectomy, an IVC filter was placed by vascular surgery. * xaralto 15 mg twice daily for 1 more week and then start 20 mg daily Hypertension * Continue amlodipine 5 daily and losartan 100 daily Chronic back pain * Currently on IV tylenol (1-3), Percocet (4-6) and IV morphine 2mg (7-10). However pain still not controlled. -Potential pain management consult. Patient is full code DVT prophylaxis on Xarelto + ALPS Regular diet Problem List: 1. CVA (cerebral vascular accident) 2. Expressive aphasia Pain Ratin Pain Location: Back pain Pain Goal: Pain 7 or less Pain Plan: see AP Tomorrow's Labs & Rationales: Hema Lloyd MD 02/13/18 1053: Attending MD Review Statement Attending Statement Attending MD Statement: examined this patient, discuss w/resident/PA/CAR CARDER, agreed w/resident/PA/CAR CARDER, reviewed EMR data (avail), discussed with nursing, discussed with case mgmt, amended to note Attending Assessment/Plan: Patient seen and examined. Resting comfortably. No events on telemetry monitoring overnight. He continues to have difficulty expressing himself verbally. Continues to have weakness in the right upper and lower extremities. Continues to be frustrated about his current clinical state. Physical examination is no significant change from the day prior. I did discuss this case with the radiologist today. We reviewed his head imaging studies together. Patient has evidence of chronic infections in the right temporal and left occipital region. There was concern raised on the carotid ultrasound that the left vertebral artery could not be visualized. On the CT angiogram done on on admission the left vertebral artery is clearly seen and is prominence which is typical. Patient reports that his low back pain started first in November. He has required intravenous analgesics for pain control during this admission. Given his history of colon cancer there is concern for bony metastasis. This was discussed with the radiologist and he recommends an MRI of the lumbar spine as a better imaging modality. Recommendations: -Obtain MRI of the head confirmed presence of stroke and rule out any intracranial metastasis. -Obtain MRI of the lumbar spine to rule out any bony metastasis to this region causing the patient's pain. -No need for further imaging of the cranial vasculature at this time. -Continue anxiolytic therapy with Xanax as needed. -Continue pain control with Percocet. May utilize morphine for breakthrough pain. Discontinue IV Tylenol. -Continue anticoagulation with Xarelto. -Cardiology evaluation and recommendations appreciated. Repeat echocardiogram. If his ejection fraction remains within normal limits discontinue further telemetry monitoring. -Anticipate discharge tomorrow to residential facility for acute rehab.
[2018-02-13 08:29] LABS: ABSOLUTE BASOPHIL COUNT 0.1 /CUMM (0.0-0.2); ABSOLUTE EOSINOPHIL COUNT 1.2 /CUMM (0.0-0.7); ABSOLUTE GRANULOCYTE CT 6.3 /CUMM (1.4-6.5); ABSOLUTE LYMPH COUNT 1.1 /CUMM (1.2-3.4); ABSOLUTE MONOCYTE COUNT 0.7 /CUMM (0.10-0.60); BASOPHIL % 1.4 % (0.0-2.0); EOSINOPHIL % 12.5 % (0-5); GRANULOCYTE % 66.6 % (42.2-75.2); HEMATOCRIT 25.5 % (42-52); MEAN CORPUSCULAR HGB CONC 32.3 G/DL (33.0-37.0); MEAN CORPUSCULAR VOLUME 80.6 FL (80.0-94.0); MEAN PLATELET VOLUME 8.6 FL (7.4-10.4); PLATELET COUNT 397 /CUMM (130-400); RBC DISTRIBUTION WIDTH 15.3 % (11.5-14.5); RED BLOOD CELL CT 3.16 /CUMM (4.70-6.10); WHITE BLOOD CELL COUNT 9.4 /CUMM (4.8-10.8)
--- NOTE | 2018-02-13 08:42 | PN- Oncology ---
Subjective Subjective: He continues to have agitation. He continues to have severe back pain. He continues to have word finding difficulties. Review of Systems Constitutional: Denies: weakness. Cardiovascular: Denies: chest pain. Gastrointestinal: Reports: abdominal pain. Musculoskeletal: Reports: back pain. Neurological/Psychological: Reports: other (apraxia, dysarthria). Hematologic/Endocrine: Denies: bruising, bleeding. All Other Systems: Reviewed and Negative Objective Vital Signs and I&Os Vital Signs Date Time Temp Pulse Resp B/P B/P Pulse O2 O2 Flow FiO2 Mean Ox Delivery Rate 02/13 0810 107 124/62 02/13 0809 107 124/62 02/13 0634 97.7 107 20 124/62 97 Room Air 02/12 2229 97.1 64 14 148/62 98 Room Air 02/12 1741 80 140/60 02/12 1451 97.4 85 20 146/65 98 Room Air 02/12 0951 94 134/60 02/12 0951 88 134/60 Intake & Output 02/13 1600 02/13 0800 02/13 0000 02/12 1600 02/12 0800 02/12 0000 Intake Total 200 240 200 120 Output Total 450 500 Balance -250 240 -300 120 Intake, Oral 200 240 200 120 Output, Urine 450 500 Patient 94.631 kg 92.986 kg Weight Weight Bed scale Measurement Method Physical Exam General Appearance: well developed/nourished, alert, awake, anxious, mild distress Head: normal appearance Respiratory: normal breath sounds, chest non-tender, no respiratory distress Cardiovascular: regular rate/rhythm Abdomen: normal bowel sounds, soft, non-tender, midline incision intact Extremities: normal inspection Neurologic/Psychiatric: awake, alert, oriented x 3, apraxia, dysarthria Skin: normal color Current Medications: Current Medications Sig/Natalee Start time Last Medication Dose Route Stop Time Status Admin Acetaminophen 1,000 MG Q6P PRN 02/12 1745 AC N/A 1 UNIT IV Acetaminophen 650 MG Q6P PRN 02/12 0230 DC PO Alprazolam 0.25 MG DAILY 02/13 1000 AC 02/13 PO 02/20 0959 0810 Alprazolam 0.5 MG Q6P PRN 02/12 1430 DC 02/12 PO 02/19 1429 1422 Alprazolam 0.5 MG ONCE ONE 02/12 1015 DC 02/12 PO 02/12 1016 1035 Amlodipine Besylate 5 MG DAILY 02/12 1000 AC 02/13 PO 0810 Aspirin 81 MG DAILY 02/12 0300 AC 02/13 PO 0809 Atorvastatin Calcium 40 MG 1700 02/12 0300 AC 02/12 PO 1700 Cyclobenzaprine HCl 10 MG TID PRN 02/12 1545 AC 02/13 PO 0525 Lidocaine 1 PAT DAILY 02/13 1000 AC EXT Losartan Potassium 100 MG DAILY 02/12 1000 AC 02/13 PO 0809 Morphine Sulfate 2 MG Q6-PRN PRN 02/12 1745 AC 02/13 IV 0341 Morphine Sulfate 2 MG ONCE ONE 02/12 1315 DC IV 02/12 1316 Nitroglycerin 0.5 GM Q6 02/13 0600 AC 02/13 TOP 0548 Oxycodone/ 1 TAB Q4P PRN 02/12 1745 AC 02/13 Acetaminophen PO 0810 Oxycodone/ 1 TAB Q6P PRN 02/12 0230 DC 02/12 Acetaminophen PO 1517 Rivaroxaban 15 MG BID 02/12 1000 AC 02/13 PO 0810 Zolpidem Tartrate 5 MG ONCE ONE 02/12 2315 DC 02/12 PO 02/12 2316 2335 Results Last 24 Hours of Lab Results: Laboratory Tests 02/13 02/12 0643 1115 Chemistry Troponin I (<0.11 ng/ml) 0.32 *H Hematology CBC w Diff Pending WBC Pending RBC Pending Hgb Pending Hct Pending MCV Pending MCH Pending MCHC Pending RDW Pending Plt Count Pending MPV Pending Assessment/Plan Assessment/Recommendations: Mr. Salter is a 67-year-old male with HTN, HLD, EtOH pancreatitis, OA, DVT/PE s /p IVC filter and currently on rivaroxaban, and stage IV adenocarcinoma of the colon with metastases to the liver s/p right hemicolectomy who presented with word finding difficulty, slurred speech, and right sided weakness. He states symptoms started Saturday morning around 8AM. His presentation is concerning for CVA. CT head without contrast and CTA head were done and was unremarkable. He has no obvious metastatic disease or ICH. Neurology is following. MRI brain is pending. Given back pain, CT of the spines may be done versus bone scan. With his metastatic colon cancer, he is due to get port placed and have chemotherapy started in the next 1-2 weeks. Pathology is still pending KRAS and BRAF status. He should be continued on rivaroxaban for his PE/DVT. CVA: -MRI/MRA head/neck -neurology following -continue anticoagulation, ASA Metastatic colon cancer: -CT spines and bone scan to evaluate for metastatic disease -plan for port placement -plan for outpatient chemotherapy -follow up pathology for KRAS/BRAF status -follow up as outpatient DVT/PE: -continue anticoagulation Please call [phone] with any questions or concerns. Problem List: 1. Expressive aphasia 2. CVA (cerebral vascular accident) 3. 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 DVT (deep venous thrombosis) 6. Pulmonary emboli
--- NOTE | 2018-02-13 12:55 | MRI REPORT ---
EXAMINATION: MR BRAIN WITHOUT CONTRAST CLINICAL INFORMATION: Right upper extremity/right lower extremity weakness with expressive aphasia. COMPARISON: CT head CTA head 02/11/2018. TECHNIQUE: MRI of the brain without contrast was obtained using routine sequences. Images are degraded by patient motion artifact on some sequences. FINDINGS: There are multiple areas of increased diffusion signal. These are noted in the left greater than right cerebellar hemispheres, in the bilateral occipital lobes and in the right greater than left frontoparietal regions. There is also restricted diffusion in the left aspect of the splenium of the corpus callosum, and in the left falcon radiata. Most of these regions demonstrate increased T2 and FLAIR signal. Some of these areas correspond to foci of low attenuation on the prior CT scan, and may be consistent with subacute infarcts There is no evidence of hemorrhage. There is no significant mass effect from these areas. No mass effect or midline shift is seen. The ventricles and sulci are commensurately prominent consistent with diffuse volume loss. In addition to the above mentioned parenchymal changes there are scattered T2 and FLAIR hyperintensities in the periventricular and subcortical white matter, No extra-axial fluid collections are seen. The brainstem appears normal. No pathologic magnetic susceptibility artifact is identified on the gradient refocused acquisition. The craniovertebral junction, marrow signal, and midline structures are normal. The major intracranial flow-voids at the level of the [place] are preserved, but are suboptimally visualized due to patient motion artifact and technique. The dural venous sinus flow-voids are maintained. The mastoid air cells and paranasal sinuses are well-aerated. IMPRESSION: 1. There are multiple areas of restricted diffusion in the cerebellar hemispheres in the bilateral frontoparietal regions, most extensive on the right superiorly, consistent with areas of infarction. There is no evidence of hemorrhagic transformation. 2. There is diffuse volume loss and there are chronic microvascular ischemic changes. 3. This critical result was discussed with Brandi Stein by telephone on 02/13/2018 at 12:50 PM and it was ascertained that the content and urgency of the report was understood at the time of direct communication..
--- NOTE | 2018-02-13 13:14 | MRI REPORT ---
EXAMINATION: MR LUMBAR SPINE WITHOUT CONTRAST CLINICAL INFORMATION: Right upper extremity/lower extremity weakness. COMPARISON: CT scan of the abdomen and pelvis 01/23/2018. TECHNIQUE: MRI of the lumbar spine without contrast was obtained using routine sequences. The patient could not tolerate the exam, into anterolaterally motion degraded localizer, sagittal T1 and sagittal T2 sequences were obtained. FINDINGS: VERTEBRAL BODIES AND PARASPINAL STRUCTURES: There is a dextroscoliosis. There is a mild retrolisthesis of L4 on L5. There is narrowing of intervertebral disc height at this level posteriorly. Intervertebral disc signal is decreased at multiple levels. Vertebral body heights are maintained and there are no compression fractures. There are areas of increased T1 and T2 signal in multiple vertebrae consistent with focal fat or hemangiomata. The paravertebral structures are poorly evaluated. CONUS MEDULLARIS AND CAUDA EQUINA: The lower thoracic spinal cord appears normal. The conus is at the level of L1-L2. SPINAL LEVELS: Evaluation is limited as no axial images are available. L1-L2: Unremarkable L2-L3: There is a broad-based posterior disc protrusion extending into the inferior neural foramina bilaterally. There is no central stenosis. L3-L4: Unremarkable. L4-L5: There is a broad-based posterior disc protrusion with an annular fissure extending into the left greater than right neural foramina, and there may be impingement on the exiting left L4 nerve root. There is no central stenosis. There appears to be bilateral facet arthropathy. L5-S1: There is a posterior disc protrusion extending into the inferior neural foramina bilaterally without definite nerve root impingement. This appears worse on the left. There is no central stenosis. IMPRESSION: 1. Markedly suboptimal study, and only motion degraded sagittal images were obtained. 2. There is spondylosis at L2-L3, L4-L5 and L5-S1 as described above. There does not appear to be central stenosis.
[2018-02-13] MEDS ORDERED: PERCOCET 5-3251 EACH PO (13:44)
[2018-02-13 14:38] VITALS: BP 122/70
--- NOTE | 2018-02-13 15:34 | Discharge Summary ---
Visit Information Visit Dates Admission Date: 02/12/18 Discharge Date: 02/25/18 Hospital Course Course Attending Physician: Hema Lamas MD Primary Care Physician: Doroteo CORTES,Evan Payne Hospital Course: Mr. Salter is a 67-year-old unfortunate male with past medical history significant for hypertension, hyperlipidemia, alcohol induced pancreatitis, osteoarthritis, bilateral lower extremity DVT, bilateral unprovoked pulmonary embolism on Xarelto 15 twice daily, colon cancer status post resection presented to the emergency department with chief complaint of change in speech since 02/11 8 AM, and RUE stiffness (cannot make a fist) which was self-resolved. ------- On admission: Vitals Afebrile, heart rate 90, respiratory rate 16, blood pressure 1 5270, saturating at 99 on room air On exam HEENT within normal limits, no JVD, S1-S2 normal no murmurs, bilateral breath sounds normal, Abdomen soft nontender nondistended Motor strength 5 out of 5 left, 4 out of 5 right, sensory exam within normal limit, cranial nerve exam 2-12 normal, cerebellar exam abnormal. Pertinent labs Leukocytosis 12.7, hemoglobin 8.8, hematocrit 27, platelets 486 CMP within normal limits EKG 77, sinus rhythm, no ST-T wave changes. CT head Evidence of chronic white matter infarction and ischemic change. No acute midline shift, mass effect or hemorrhage here. CTA head normal #Ischemic stroke Patient presented with speech changes, expressive aphasia/dysphasia since 8 AM on the day of admission. Patient also reported difficulty with right hand grasping, however self-resolved prior this admission. He had mild weakness noticed on right side. However CT head, CTA head was negative. Given his recent anticoagulation, Hemorrhage was ruled out. However given all his his risk factors- deep vein thrombosis, pulmonary embolism, cancer history, patient was arranged for MRI however the first attempt was not successful due to his chronic back pain which prevented him from lying still within the machine. Premedication with morphine/xanax was given and second attempt was successful. MRI revealed multiple areas of restricted diffusion in the cerebellar hemispheres in the bilateral frontoparietal regions, most extensive on the right superiorly, consistent with areas of infarction. There is no evidence of hemorrhagic transformation. Over the hospital course, patient's NIH stroke scale remained about 3-4, with mostly symptomatic on speech difficulty (dysphasia/expressive aphasia), and RUE/ RLE weakness. Patient was given Aspirin 81 daily, Lipitor 40 daily, Cardio consult recommended adding NG ointment 0.5gm q6. Patient's HbA1c was 5.1 and lipid panel was unremarkable for hyperlipidemia. #Elevated troponin 2/2 demand ischemia On presentation, patient had mildly elevated troponin. Patient was recently admitted at [facility] and had a type II HI, demand ischemia. His troponin 0.42 at the time of this admission. EKG showed sinus rhythm, rates of [address]-T wave changes. Serial troponin and EKG had been trending down to 0.32. Cleared by cardiology #Stage IV colon cancer with liver metastasis: During his last admission, Endoscopy revealed submucosal nodule second portion of the duodenum, scattered gastric erosions with no stigmata of bleeding, and non-obstructing schtazki's ring. Colonoscopy revealed an ileocecal valve mass which pathology subsequently showed to be invasive moderately to poorly differentiated adenocarcinoma. Oncology was consulted and recommended CT abdomen /pelvis that revealed metastatic disease with large mesenteric lymph nodes, retroperitoneal and upper abdominal lymph nodes, and suspected hepatic metastases with no evidence of bowel obstruction. Underwent hemicolectomy and he has been following up with oncologist as an outpatient to start chemotherapy. Oncology consult recommend to plan for port placement, outpatient chemotherapy, follow up on KRAS/BRAF status, and continue to hold anticoagulation. Bone scan of patient's lumbar spine may be considered for further follow up of his chronic back pain. #Hx of Bilateral Lower Extremity DVTs and Bilateral PE s/p IVC Filter placement: Patient was recently admitted for bilateral lower extremity DVTs and PE. Because he needed to have a hemicolectomy, an Cook Celect IVC filter (MRI capable) was placed by vascular surgery. Patient was initially stated on xarelto but unfortunaltely developed GIB and aanemia. Full anticoag was stopped nad patient was then kept on baby ASA. Oncology/hematology awre and agree with this. #Hypertension Patient was continued on amlodipine 5 daily and losartan 50 daily. #Chronic back pain Patient back pain was managed with IV tylenol (1-3), Percocet (4-6) and IV morphine 2mg (7-10). However pain still not adequately controlled. His MRI spine study was limited to however no spondylosis was found. It remained questionable whether bone metastases would have caused his back pain. In this case, outpatient follow up is needed for further management. Patient sent with gabapentin, cyclobenzaprine, Lexapro. Due to usage of opiates for pain patient has constipation. He was started on stool softeners. #ABLA Bleeding likely from the site of surgery/anastamosis s/p hemicolectomy. Transfused 2 PRBCs. Hb stable now. Discontinued all anticoagulants as per Oncology. Patient is on aspirin 81 daily. No intervention such as colonoscopy to avoid risk of dehiscience of the surgical anastamosis. #Suicidal attempt Patient was seen by psychiatry who suggested that patient still has suicidal ideation and needs to be monitored by one is to one sitter. Psychiatry also suggested to be transferred to psych unit for the same. Patient is full code DVT prophylaxis on Xarelto + ALPS Heart Healthy Diet/Puree/Thin liquid Allergies: Coded Allergies: No Known Allergies (09/13/17) Pertinent Lab Results: SERVICE DATE: 02/11/18 EXAM TYPE: CAT - CT HEAD WO IV CONTRAST IMPRESSION: Evidence of chronic white matter infarction and ischemic change. No acute midline shift, mass effect or hemorrhage here. SERVICE DATE: 02/11/18 EXAM TYPE: CAT - CT HEAD ANGIOGRAM IMPRESSION: Normal CTA of head. SERVICE DATE: 02/12/18 EXAM TYPE: US - UV-VBYVIDS-AAEAPYGSS DOPPLER IMPRESSION: Plaque is present in the internal carotid arteries but velocity measurements are normal and there is no evidence to suggest a hemodynamically significant stenosis of greater than 50% diameter reduction. Left vertebral artery is not visualized. SERVICE DATE: 02/13/18- EXAM TYPE: MRI - MRI-HEAD W/O DONNIE IMPRESSION: 1. There are multiple areas of restricted diffusion in the cerebellar hemispheres in the bilateral frontoparietal regions, most extensive on the right superiorly, consistent with areas of infarction. There is no evidence of hemorrhagic transformation. 2. There is diffuse volume loss and there are chronic microvascular ischemic changes. 3. This critical result was discussed with Brandi Stein by telephone on 02/13/2018 at 12:50 PM and it was ascertained that the content and urgency of the report was understood at the time of direct communication. SERVICE DATE: 02/13/18- EXAM TYPE: MRI - MRI-LUMBAR SPINE IMPRESSION: 1. Markedly suboptimal study, and only motion degraded sagittal images were obtained. 2. There is spondylosis at L2-L3, L4-L5 and L5-S1 as described above. There does not appear to be central stenosis. CT abdomen and pelvis Partially visualized within the lung bases are bilateral pulmonary arterial filling defects concerning for pulmonary emboli. No abdominal or pelvic free fluid. Extensive abdominal lymphadenopathy, unchanged from prior exam. Low-attenuation lesion within the liver suspicious for metastatic disease. Status post hemicolectomy. No arterial injury identified. No contrast extravasati Disposition Summary Disposition Principal Diagnosis: 1. Expressive aphasia with RUE weakness 2. Acute ischemic stroke vs brain mets 3. Metastatic colonic adenocarcinoma s/p hemicolectomy 4. Elevated troponin likely demand ischemia 5. Bilateral DVT and PE s/p IVC filter on xarelto 6. Chronic blood loss anemia from colon cancer 7. Suicidal ideation Additional Diagnosis: As above Discharge Disposition: psychiatric unit at [facility] Discharge Instructions General Discharge Information Code Status: Full Code Patient's Diet: Regular diet Patient's Activity: As tolerated Follow-Up Instructions/Appts: Please follow-up with primary care physician/investor relations associate/oncologist / psychiatrist within 1-2 weeks of discharge. Medications at Discharge Discharge Medications: Stop taking the following medications: Losartan Potassium (Losartan Potassium) 100 MG TABLET ORAL DAILY Qty = 90 Amlodipine Besylate (Amlodipine Besylate) 5 MG TABLET ORAL DAILY Qty = 90 Meloxicam (Meloxicam) 7.5 MG TABLET ORAL DAILY Qty = 30 Rivaroxaban (Xarelto) 15 MG TABLET ORAL TWICE DAILY Qty = 42 Start taking the following new medications: Sennosides/Docusate Sodium (Senna Plus Tablet) 8.6 MG-50 MG TABLET 2 Tablet ORAL Every night as needed for constipation Qty = 60 No Refills Comments: Last Taken: 02/24/18 Time: 20:13 Oxycodone HCl/Acetaminophen (Percocet 5-325 MG Tablet) 5 MG-325 MG TABLET 1 Tablet ORAL EVERY 4 HOURS NEEDED as needed for PAIN SCALE 7-10 (SEVERE) Qty = 10 No Refills Comments: Last Taken: 02/22/18 Time: 13:59 Atorvastatin Calcium (Atorvastatin Calcium) 40 MG TABLET 40 Milligram ORAL 5 PM Qty = 30 No Refills Comments: Last Taken: 02/25/18 Time: 16:52 Losartan Potassium (Losartan Potassium) 50 MG TABLET 50 Milligram ORAL DAILY Qty = 30 No Refills Comments: Last Taken: 02/25/18 Time: 10:41 Aspirin (Ecotrin*) 81 MG TABLET. 81 Milligram ORAL DAILY Qty = 60 No Refills Comments: Last Taken: 02/25/18 Time: 10:41 Polyethylene Glycol 3350 (Miralax) 17 GRAM/DOSE POWDER 17 Gram ORAL DAILY Qty = 30 No Refills Comments: Last Taken: 02/25/18 Time: 10:42 Omeprazole (Omeprazole) 20 MG CAPSULE. 40 Milligram ORAL DAILY BEFORE BREAKFAST Qty = 30 No Refills Comments: Last Taken: 02/25/18 Time: 10:40 Lidocaine (Lidoderm) 5 % ADH..PATCH 1 Patch ON SKIN DAILY Qty = 30 No Refills Comments: Last Taken: 02/23/18 Time: 10:17 Gabapentin (Gabapentin) 100 MG CAPSULE 200 Milligram ORAL THREE TIMES DAILY Qty = 90 No Refills Comments: Last Taken: 02/25/18 Time: 16:52 Cyclobenzaprine HCl (Cyclobenzaprine HCl) 10 MG TABLET 10 Milligram ORAL THREE TIMES DAILY as needed for PAIN SCALE 4-6 (MODERATE) Qty = 90 No Refills Comments: Last Taken: 02/25/18 Time: 11:21 Escitalopram Oxalate (Lexapro) 10 MG TABLET 10 Milligram ORAL DAILY Qty = 30 No Refills Instructions: Monitor for hyponatremia or QTC prolongation; hold for either condition. Comments: Last Taken: 02/25/18 Time: 10:41 Copies To: Doroteo CORTES,Evan Payne; Devika CORTES,Josh; Anya CORTES,Getachew Acosta Attending MD Review Statement Documenting Attending: Cheko CORTES,Debbie
--- NOTE | 2018-02-13 21:12 | PN- Cardiology ---
Subjective Subjective: * Patient is very frustrated by inability to speak well. He has low back pain. No discernible chest pain. * Cardiac enzymes are coming down. * decreasing H/H with INR 2.2 Objective Vital Signs and I&Os Vital Signs Date Time Temp Pulse Resp B/P B/P Pulse O2 O2 Flow FiO2 Mean Ox Delivery Rate 02/13 1438 97.4 85 20 122/70 98 02/13 0810 107 124/62 02/13 0809 107 124/62 02/13 0634 97.7 107 20 124 97 Room Air 02/12 2229 97.1 64 14 148/62 98 Room Air Intake & Output 02/13 1600 02/13 0800 02/13 0000 02/12 1600 02/12 0800 02/12 0000 Intake Total 410 200 240 200 120 Output Total 450 450 500 Balance -40 -250 240 -300 120 Intake, IV 10 Intake, Oral 400 200 240 200 120 Output, Urine 450 450 500 Patient 209 lb 205 lb Weight Weight Bed scale Measurement Method Physical Exam: General: WD/overweight male in NAD; confused and agitated HEENT: NC/AT, PERRL, EOMI Neck: no JVD, no carotid bruit Heart: RRR w/o murmur Lungs: clear bilaterally Abdomen: soft, NT, +ve bowel sounds Extremities: no edema Assessment/Plan Assessment/Plan * This patient has elevated cardiac enzymes without a typical rise and fall and without clear chest discomfort. He may have recurrent or persistent pulmonary emboli although myocardial ischemia cannot be excluded. Continue Xarelto and aspirin at 81mg daily. Continue nitroglycerin paste 1/2 inch Q 6 hours and a statin. In consideration of the patient's co-morbidities we will treat him medically. Repeat an echocardiogram. Continue telemetry? Yes
[2018-02-13 21:20] VITALS: BP 122/50
--- NOTE | 2018-02-14 07:23 | PN- Housestaff ---
EmilBrandi 02/14/18 0723: Subjective Follow-up For: 1. Expressive aphasia with RUE weakness 2. Acute ischemic stroke vs brain mets 3. Metastatic colonic adenocarcinoma s/p hemicolectomy 4. Elevated troponin likely demand ischemia 5. Bilateral DVT and PE s/p IVC filter on xarelto 6. Chronic blood loss anemia from colon cancer Tele-Events Since Last Visit: Off Tele Subjective: No overngiht event. Patient still have difficulty finding words and denied any improvement, nor alleviation of his back pain. Denied chest pain/SOB/headache. Review of Systems Constitutional: Reports: see HPI. Objective Last 24 Hrs of Vital Signs/I&O Vital Signs Date Time Temp Pulse Resp B/P B/P Pulse O2 O2 Flow FiO2 Mean Ox Delivery Rate 02/130 98.8 95 18 122/50 97 Room Air 02/13 1438 97.4 85 20 122/70 98 02/13 0810 107 124/62 02/13 0809 107 124/62 Intake & Output 02/14 0800 02/14 0000 02/13 1600 Intake Total 120 410 Output Total 450 Balance 120 -40 Intake, IV 10 Intake, Oral 120 400 Output, Urine 450 Patient 95.396 kg Weight Weight Bed scale Measurement Method Physical Exam General Appearance: Alert, Oriented X3, Mild Distress Cardiovascular: Regular Rate Lungs: Clear to Auscultation, Normal Air Movement Abdomen: Soft, No Tenderness, Surgical site in dressing, no swelling/erythema/ signs of infection Neurological: Dysphasia Extremities: No Edema Current Medications: Current Medications Sig/Natalee Start time Last Medication Dose Route Stop Time Status Admin Acetaminophen 1,000 MG Q6P PRN 02/12 1745 DC N/A 1 UNIT IV Alprazolam 0.25 MG ONCE ONE 02/13 1830 DC 02/13 PO 02/13 1831 1842 Alprazolam 0.25 MG ONCE ONE 02/13 1315 DC 02/13 PO 02/13 1316 1313 Alprazolam 0.25 MG DAILY 02/13 1000 AC 02/14 PO 02/20 0959 0747 Amlodipine Besylate 5 MG DAILY 02/12 1000 AC 02/14 PO 0747 Aspirin 81 MG DAILY 02/12 0300 AC 02/14 PO 0746 Atorvastatin Calcium 40 MG 1700 02/12 0300 AC 02/13 PO 1640 Cyclobenzaprine HCl 10 MG TID PRN 02/12 1545 AC 02/13 PO 2209 Docusate Sodium 100 MG DAILY NEEDED PRN 02/13 1915 AC PO Lidocaine 1 PAT DAILY 02/13 1000 AC 02/14 EXT 0747 Losartan Potassium 100 MG DAILY 02/12 1000 AC 02/14 PO 0747 Morphine Sulfate 2 MG ONCE ONE 02/13 1315 DC 02/13 IV 02/13 1316 1314 Morphine Sulfate 2 MG Q6-PRN PRN 02/12 1745 AC 02/14 IV 0746 Nitroglycerin 0.5 GM Q6 02/13 1200 AC 02/14 TOP 0036 Nitroglycerin 0.5 GM Q6 02/13 0600 DC 02/13 TOP 0548 Oxycodone/ 1 TAB Q4P PRN 02/12 1745 AC 02/13 Acetaminophen PO 0810 Patient Medication 1 ED ONE ONE 02/13 1300 DC Teaching ED 02/13 1301 Rivaroxaban 15 MG BID 02/12 1000 AC 02/14 PO 0747 Senna 187 MG AT BEDTIME PRN 02/13 1915 AC 02/14 PO 0746 Zolpidem Tartrate 5 MG ONCE ONE 02/13 2215 DC 02/14 PO 02/13 2216 0036 Assessment/Plan Assessment: Mr. Salter is a 67-year-old unfortunate male with past medical history significant for hypertension, hyperlipidemia, alcohol induced pancreatitis, osteoarthritis, bilateral lower extremity DVT, bilateral unprovoked pulmonary embolism on Xarelto 15 twice daily, colon cancer status post resection presented to the emergency department with chief complaint of change in speech since 02/11 8 AM, and RUE stiffness (cannot make a fist) which was self-resolved. ------- Vitals Afebrile, heart rate 90, respiratory rate 16, blood pressure 1 5270, saturating at 99 on room air On exam HEENT within normal limits, no JVD, S1-S2 normal no murmurs, bilateral breath sounds normal, Abdomen soft nontender nondistended Motor strength 5 out of 5 left, 4 out of 5 right, sensory exam within normal limit, cranial nerve exam 2-12 normal, cerebellar exam abnormal. Pertinent labs Leukocytosis 12.7, hemoglobin 8.8, hematocrit 27, platelets 486 CMP within normal limits EKG 77, sinus rhythm, no ST-T wave changes. CT head Evidence of chronic white matter infarction and ischemic change. No acute midline shift, mass effect or hemorrhage here. CTA head normal Ischemic Stroke Patient presented with speech changes, expressive aphasia since 8 AM on the day of admission. Also reports difficulty with right hand grasping, however self- resolved. Mild weakness noticed on right side. However CT head, CTA head was negative. Given his recent anticoagulation, Hemorrhage was ruled out. However given all his his risk factors- deep vein thrombosis, pulmonary embolism, cancer history, further workup should be done. * NIH stroke scale overnight mostly 3-4, unchanged from previous days * Fall precautions * Aspirin 81 daily * Lipitor 40 daily * Recent echo in December 2017 showed ejection fraction 55% with impaired left ventricular relaxation - MRI Head: 1. There are multiple areas of restricted diffusion in the cerebellar hemispheres in the bilateral frontoparietal regions, most extensive on the right superiorly, consistent with areas of infarction. There is no evidence of hemorrhagic transformation. 2. There is diffuse volume loss and there are chronic microvascular ischemic changes. - MRI Spine: 1. Markedly suboptimal study, and only motion degraded sagittal images were obtained. 2. There is spondylosis at L2-L3, L4-L5 and L5-S1 as described above. There does not appear to be central stenosis. * Cardio consult recommended adding NG ointment 0.5gm q6. * Neuro consult appreciated * PTOT recommended STR * Speech and swallow recommended Puree/thin liquid * HbA1c 5.1 and lipid panel (WNL) Elevated troponin, demand ischemia On presentation, patient had mildly elevated troponin. Patient was recently admitted here and had a type II OK, demand ischemia. Troponin 0.42 at the time of admission. EKG showed sinus rhythm, rates of [address]-T wave changes. Looks like a type II OK/demand ischemia from PE. * Serial troponin and EKG had been trending down to 0.32. * Cardiology consult as above - Pending Echo - Continue aspirin and Lipitor as above Stage IV colon cancer with liver metastasis: During his last admission, Endoscopy revealed submucosal nodule second portion of the duodenum, scattered gastric erosions with no stigmata of bleeding, and non-obstructing schtazki's ring. Colonoscopy revealed an ileocecal valve mass which pathology subsequently showed to be invasive moderately to poorly differentiated adenocarcinoma. Oncology was consulted and recommended CT abdomen /pelvis that revealed metastatic disease with large mesenteric lymph nodes, retroperitoneal and upper abdominal lymph nodes, and suspected hepatic metastases with no evidence of bowel obstruction. Underwent hemicolectomy and he has been following up with oncologist as an outpatient to start chemotherapy. Bilateral Lower Extremity DVTs and Bilateral PE s/p IVC Filter placement: Patient was recently admitted for bilateral lower extremity DVTs and PE. Because he needed to have a hemicolectomy, an IVC filter was placed by vascular surgery. * xaralto 15 mg twice daily for 1 more week and then start 20 mg daily Hypertension * Continue amlodipine 5 daily and losartan 100 daily Chronic back pain * Currently on Percocet/IV morphine 2mg. Patient appeared restless overnight but refused pain meds. Patient is full code DVT prophylaxis on Xarelto + ALPS Regular diet Problem List: 1. Expressive aphasia 2. CVA (cerebral vascular accident) Pain Ratin Pain Location: Chronic back pain Pain Goal: Pain 7 or less Pain Plan: see AP Tomorrow's Labs & Rationales: AMI Lamas MD,Hema 02/14/18 1222: Attending MD Review Statement Attending Statement Attending MD Statement: examined this patient, discuss w/resident/PA/ICE GUARD INSPECTOR, agreed w/resident/PA/ICE GUARD INSPECTOR, reviewed EMR data (avail), discussed with nursing, discussed with case mgmt, amended to note Attending Assessment/Plan: Patient seen and examined. Resting comfortably not in any acute distress. No issues overnight. He continues to have significant dysarthria this morning. He is able to participate in physical therapy however continues to have right upper extremity weakness. MRI of the brain done yesterday showed multiple areas of restricted diffusion in the cerebral hemispheres in the bilateral frontoparietal regions more extensive on the right. The lower aspect of surgical incision has some nonpurulent discharge today. There is very mild surrounding erythema in this area. The wound continues to appear intact with no open areas. It is nontender and is no palpable crepitus. Recommendations: -Patient will require further care in an acute rehab facility. According to the case management service patient will now have a bed available until Saturday. He will continue physical therapy as tolerated in the hospital until then. -Since patient will be here over the weekend, please follow-up with the patient' s surgeon regarding timing of placement of a port in order to allow for planning of holding anticoagulations therapy. -Recommend consultation with the patient's general surgeon regarding evaluation of the surgical wound and recommendations on wound care. -Cardiology follow-up appreciated. Follow-up repeat echocardiogram. No recommendations for further ischemic workup with a stress test at this time. -No need for further telemetry monitoring at this time.
--- NOTE | 2018-02-14 08:48 | PN- Oncology ---
Subjective Subjective: He continues to have dsyarthria and apraxia. He continues to have back pain. He seems irritable. Review of Systems Constitutional: Denies: chills, fever. Cardiovascular: Denies: chest pain. Respiratory: Denies: short of breath. Gastrointestinal: Reports: abdominal pain. Musculoskeletal: Reports: back pain. Neurological/Psychological: Reports: other (word finding difficulties). All Other Systems: Reviewed and Negative Objective Vital Signs and I&Os Vital Signs Date Time Temp Pulse Resp B/P B/P Pulse O2 O2 Flow FiO2 Mean Ox Delivery Rate 02/14 0747 88 142/68 02/14 0747 88 142/68 02/13 2120 98.8 95 18 122/50 97 Room Air 02/13 1438 97.4 85 20 122/70 98 Intake & Output 02/14 1600 02/14 0800 02/14 0000 02/13 1600 02/13 0800 02/13 0000 Intake Total 120 410 200 240 Output Total 450 450 Balance 120 -40 -250 240 Intake, IV 10 Intake, Oral 120 400 200 240 Output, Urine 450 450 Patient 95.396 kg 94.631 kg Weight Weight Bed scale Measurement Method Physical Exam: General Appearance: well developed/nourished, alert, awake, anxious, moderate distress, irritable. Respiratory: normal breath sounds, chest non-tender, no respiratory distress Cardiovascular: regular rate/rhythm Abdomen: normal bowel sounds, soft, non-tender, midline incision intact Extremities: normal inspection Neurologic/Psychiatric: awake, alert, oriented x 3, apraxia, dysarthria, irritable Current Medications: Current Medications Sig/Natalee Start time Last Medication Dose Route Stop Time Status Admin Acetaminophen 1,000 MG Q6P PRN 02/12 1745 DC N/A 1 UNIT IV Alprazolam 0.25 MG ONCE ONE 02/13 1830 DC 02/13 PO 02/13 1831 1842 Alprazolam 0.25 MG ONCE ONE 02/13 1315 DC 02/13 PO 02/13 1316 1313 Alprazolam 0.25 MG DAILY 02/13 1000 AC 02/14 PO 02/20 0959 0747 Amlodipine Besylate 5 MG DAILY 02/12 1000 AC 02/14 PO 0747 Aspirin 81 MG DAILY 02/12 0300 AC 02/14 PO 0746 Atorvastatin Calcium 40 MG 1700 02/12 0300 AC 02/13 PO 1640 Cyclobenzaprine HCl 10 MG TID PRN 02/12 1545 AC 02/13 PO 2209 Docusate Sodium 100 MG DAILY NEEDED PRN 02/13 1915 AC PO Lidocaine 1 PAT DAILY 02/13 1000 AC 02/14 EXT 0747 Losartan Potassium 100 MG DAILY 02/12 1000 AC 02/14 PO 0747 Morphine Sulfate 2 MG ONCE ONE 02/13 1315 DC 02/13 IV 02/13 1316 1314 Morphine Sulfate 2 MG Q6-PRN PRN 02/12 1745 AC 02/14 IV 0746 Nitroglycerin 0.5 GM Q6 02/13 1200 AC 02/14 TOP 0036 Nitroglycerin 0.5 GM Q6 02/13 0600 DC 02/13 TOP 0548 Oxycodone/ 1 TAB Q4P PRN 02/12 1745 AC 02/13 Acetaminophen PO 0810 Patient Medication 1 ED ONE ONE 02/13 1300 DC Teaching ED 02/13 1301 Rivaroxaban 15 MG BID 02/12 1000 AC 02/14 PO 0747 Senna 187 MG AT BEDTIME PRN 02/13 1915 AC 02/14 PO 0746 Zolpidem Tartrate 5 MG .STK-MED ONE 02/14 0031 DC PO 02/14 0032 Zolpidem Tartrate 5 MG ONCE ONE 02/13 2215 DC 02/14 PO 02/13 2216 0036 Results Recent Imaging Studies: MRI brain 02/13/2018: 1. There are multiple areas of restricted diffusion in the cerebellar hemispheres in the bilateral frontoparietal regions, most extensive on the right superiorly, consistent with areas of infarction. There is no evidence of hemorrhagic transformation. 2. There is diffuse volume loss and there are chronic microvascular ischemic changes. MRI lumbar spine 02/13/2018: 1. Markedly suboptimal study, and only motion degraded sagittal images were obtained. 2. There is spondylosis at L2-L3, L4-L5 and L5-S1 as described above. There does not appear to be central stenosis. Assessment/Plan Assessment/Recommendations: Mr. Salter is a 67-year-old male with HTN, HLD, EtOH pancreatitis, OA, DVT/PE s /p IVC filter and currently on rivaroxaban, and stage IV adenocarcinoma of the colon with metastases to the liver s/p right hemicolectomy who presented with word finding difficulty, slurred speech, and right sided weakness. He states symptoms started Saturday morning around 8AM. His presentation is concerning for CVA. CT head without contrast and CTA head were done and was unremarkable. He has no obvious metastatic disease or ICH. Neurology is following. MRI brain is demonstrated multiple areas of restricted diffusion in the cerebellar hemispheres and in the bilateral frontoparietal regions. These were consistent with infarction. MRI lumbar demonstrated no evidence of metastatic disease. He has no evidence of hemorrhagic transformation. He will continue on rivaroxaban. He will need rehab. With his metastatic colon cancer, he is due to get port placed and have chemotherapy started in the next 1-2 weeks. Pathology is still pending KRAS and BRAF status. He should be continued on rivaroxaban for his PE/ DVT. CVA: -neurology following -continue anticoagulation, ASA -STR Metastatic colon cancer: -bone scan to evaluate for metastatic disease -need for port placement -outpatient chemotherapy pending (4-6 weeks after surgery) -follow up pathology for KRAS/BRAF status -follow up as outpatient DVT/PE: -continue anticoagulation Please call [phone] with any questions or concerns. Problem List: 1. CVA (cerebral vascular accident) 2. Adenocarcinoma of colon metastatic to liver 3. DVT (deep venous thrombosis) 4. Pulmonary emboli
--- NOTE | 2018-02-14 10:57 | ECHOCARDIOGRAM REPORT ---
CHARLINE SHAFER Age: 67 : 1950 Gender: M Exam Date: 02/13/2018 18:06 Exam Location: [address] Ht (in): 74 Wt (lb): 209 BSA: 2.24 BP: 124 / 62 Ordering Physician: Meagan Lance MD Referring Physician: Ramírez Mckee MD, PhD Technologist: Emanuel Beach [facility] Room Number: [id number] Indications: STROKE Rhythm: Sinus Technical Quality: limited study due to patient agitation FINDINGS Left Ventricle Normal left ventricular size, wall thickness and systolic function with no obvious regional wall motion abnormalities. Normal left ventricular diastolic filling pattern for age. The ejection fraction is visually estimated at 55%. Right Ventricle The right ventricle is normal in size and function. Right Atrium The right atrium is normal in size. Left Atrium The left atrium is normal in size. The interatrial septum is intact. Mitral Valve The mitral valve is normal in structure and function. There is trace mitral regurgitation. Aortic Valve Structurally normal aortic valve without significant sclerosis or stenosis. There is mild aortic regurgitation. Tricuspid Valve The tricuspid valve is normal in structure and function. There is trace tricuspid regurgitation. Pulmonary artery systolic pressure is normal. Pulmonic Valve Structurally normal pulmonic valve. There is no pulmonic regurgitation. Pericardium Normal pericardium without effusion. No pleural effusion. Great Vessels Normal aortic root dimension. The aortic arch and great vessels are well seen and are normal. CONCLUSIONS 1. Limited study due to patient agitation. 2. Normal EF of 55%. 3. Trace mitral regurgitation. 4. Trace tricuspid regurgitation. 5. Mild aortic regurgitation. Ramírez Mckee M.D. (Electronically Signed) Final Date: 14 February 2018 10:57 MEASUREMENTS (Male / Female) Normal Values 2D ECHO LV Diastolic Diameter PLAX 5.4 cm 4.2 - 5.9 / 3.9 - 5.3 cm LV Systolic Diameter PLAX 3.4 cm 2.1 - 4.0 cm LV Fractional Shortening PLAX 37.0 % 25 - 46 % LV Ejection Fraction 2D Teich 66.4 % IVS Diastolic Thickness 1.1 cm LVPW Diastolic Thickness 1.1 cm LV Relative Wall Thickness 0.4 LVOT Diameter 2.5 cm Aortic Root Diameter 3.5 cm LA Systolic Diameter LX 3.4 cm 3.0 - 4.0 / 2.7 - 3.8 cm Ascending Aorta Diameter 3.3 cm DOPPLER MV Peak Velocity 77.7 cm/s MV Peak Gradient 2.4 mmHg MV Mean Velocity 55.5 cm/s MV Mean Gradient 1.0 mmHg Mitral E Point Velocity 86.3 cm/s Mitral A Point Velocity 102.0 cm/s Mitral E to A Ratio 0.8 MV PHT Velocity 78.8 cm/s MV Deceleration [place] 400.5 cm/s MV Pressure Half Time 59.0 ms MV Area PHT 3.7 cm MV Deceleration Time 246.0 ms TV Peak Velocity 240.0 cm/s TV Peak E Velocity 40.4 cm/s TV Peak A Velocity 35.3 cm/s TV E to A Ratio 1.1 Right Atrial Pressure 5.0 mmHg PV Peak Velocity 95.9 cm/s PV Peak Gradient 3.7 mmHg PV Mean Velocity 80.0 cm/s PV Mean Gradient 3.0 mmHg PV Velocity Time Integral 16.4 cm
--- NOTE | 2018-02-14 12:01 | PN- Neurology ---
Subjective Subjective: Out of bed in the chair, appears calm Objective Vital Signs and I&Os Vital Signs Date Time Temp Pulse Resp B/P B/P Pulse O2 O2 Flow FiO2 Mean Ox Delivery Rate 02/14 0747 88 142/68 02/14 0747 88 142/68 02/13 2120 98.8 95 18 122/50 97 Room Air 02/13 1438 97.4 85 20 122/70 98 Intake & Output 02/14 1600 02/14 0800 02/14 0000 02/13 1600 02/13 0800 02/13 0000 Intake Total 120 410 200 240 Output Total 450 450 Balance 120 -40 -250 240 Intake, IV 10 Intake, Oral 120 400 200 240 Output, Urine 450 450 Patient 210 lb 209 lb Weight Weight Bed scale Measurement Method Physical Exam: Awake alert and oriented Moderate dysarthria/verbal apraxia Preserved comprehension Visual morin full to confrontation Full extraocular motility Mild right lower facial weakness Midline tongue protrusion Right upper extremity strength 3+ to 4 minus out of 5 right lower extremity strength 4-4+ out of 5. Left arm and leg strength normal Current Medications: Current Medications Sig/Naatlee Start time Last Medication Dose Route Stop Time Status Admin Acetaminophen 1,000 MG Q6P PRN 02/12 1745 DC N/A 1 UNIT IV Alprazolam 0.25 MG ONCE ONE 02/13 1830 DC 02/13 PO 02/13 1831 1842 Alprazolam 0.25 MG ONCE ONE 02/13 1315 DC 02/13 PO 02/13 1316 1313 Alprazolam 0.25 MG DAILY 02/13 1000 AC 02/14 PO 02/20 0959 0747 Amlodipine Besylate 5 MG DAILY 02/12 1000 AC 02/14 PO 0747 Aspirin 81 MG DAILY 02/12 0300 AC 02/14 PO 0746 Atorvastatin Calcium 40 MG 1700 02/12 0300 AC 02/13 PO 1640 Cyclobenzaprine HCl 10 MG TID PRN 02/12 1545 AC 02/13 PO 2209 Docusate Sodium 100 MG DAILY NEEDED PRN 02/13 1915 AC PO Lidocaine 1 PAT DAILY 02/13 1000 AC 02/14 EXT 0747 Losartan Potassium 100 MG DAILY 02/12 1000 AC 02/14 PO 0747 Morphine Sulfate 2 MG ONCE ONE 02/13 1315 DC 02/13 IV 02/13 1316 1314 Morphine Sulfate 2 MG Q6-PRN PRN 02/12 1745 AC 02/14 IV 0746 Nitroglycerin 0.5 GM Q6 02/13 1200 AC 02/14 TOP 0036 Oxycodone/ 1 TAB Q4P PRN 02/12 1745 AC 02/13 Acetaminophen PO 0810 Patient Medication 1 ED ONE ONE 02/13 1300 DC Teaching ED 02/13 1301 Rivaroxaban 15 MG BID 02/12 1000 AC 02/14 PO 0747 Senna 187 MG AT BEDTIME PRN 02/13 1915 AC 02/14 PO 0746 Zolpidem Tartrate 5 MG .STK-MED ONE 02/14 0031 DC PO 02/14 0032 Zolpidem Tartrate 5 MG ONCE ONE 02/13 2215 DC 02/14 PO 02/13 2216 0036 Results Recent Imaging Studies: Brain MRI shows acute infarcts in the right MCA and right PICA territories Carotid ultrasound shows no hemodynamically significant stenosis Lumbar spine MRI negative for metastatic disease Assessment/Plan Assessment: Embolic ischemic strokes in a 67-year-old man with colon cancer, presumably hypercoagulable on this basis, already on anticoagulation for DVT/PE Plan: Continue aspirin, statin, anticoagulation Excellent candidate for acute rehabilitation, after which the plan according to oncology is to begin chemotherapy ?To have bone scan/port prior to d/c
[2018-02-14 15:08] VITALS: BP 128/60
--- NOTE | 2018-02-14 16:41 | Event Note ---
Event Note Event Note: Roel Patiño MD was consulted for patient's port placement for chemotherapy in the future. Roel Patiño MD stated that patient will not need a port placement in the coming week and there is no need to hold patient's anticoagulation until decision made for the date of port placement.
--- NOTE | 2018-02-14 19:13 | PN- General Surgery ---
Surgical Brief Attending Note Brief Attending Note: Patient underwent colectomy on 01/24/2018 I just saw him in the office on Saturday took out the carmelo, he was following up with his oncologist, because of the dyspnea we referred him to a title searcher, he's had some serous drainage from the bottom of his incision all along, this continues I feel is an element of fat necrosis it's not pus, no signs of infection or surrounding cellulitis I would continue local wound care and regarding a Port-A-Cath it's too soon for him I would not mg of procedure right now as he has more acute issues. Interestingly his dyspnea has much improved.
--- NOTE | 2018-02-14 21:49 | PN- Cardiology ---
Subjective Subjective: * Patient continues to have difficulty with his speech and word finding. * Normal EF on echo without any obvious thrombus or significant valvular disease. * moderate anemia noted Objective Vital Signs and I&Os Vital Signs Date Time Temp Pulse Resp B/P B/P Pulse O2 O2 Flow FiO2 Mean Ox Delivery Rate 02/14 1508 97.5 90 20 128/60 96 02/14 0747 88 142/68 02/14 0747 88 142/68 Intake & Output 02/14 1600 02/14 0800 02/14 0000 02/13 1600 02/13 0800 02/13 0000 Intake Total 410 120 410 200 240 Output Total 450 450 Balance 410 120 -40 -250 240 Intake, IV 10 10 Intake, Oral 400 120 400 200 240 Output, Urine 450 450 Patient 210 lb 209 lb Weight Weight Bed scale Measurement Method Physical Exam: General: WD/overweight male in NAD; confused and agitated HEENT: NC/AT, PERRL, EOMI Neck: no JVD, no carotid bruit Heart: RRR w/o murmur Lungs: clear bilaterally Abdomen: soft, NT, +ve bowel sounds Extremities: no edema Assessment/Plan Assessment/Plan * This patient had elevated cardiac enzymes without a typical rise and fall and without clear chest discomfort. He may have recurrent or persistent pulmonary emboli although myocardial ischemia cannot be excluded. Continue Xarelto and aspirin at 81mg daily. Continue nitroglycerin paste 1/2 inch Q 6 hours and a statin. In consideration of the patient's co-morbidities we will treat him medically. His EF is normal without regional wall motion abnormality and without thrombus. No PFO/ASD. Stable for discharge to rehabilitation facility. Continue telemetry? Yes
[2018-02-14 22:15] VITALS: BP 122/54
[2018-02-15 07:00] VITALS: BP 120/52
--- NOTE | 2018-02-15 08:38 | PN- Housestaff ---
Subjective Follow-up For: Ischemic CVA Complaints: complains of back pain Tele-Events Since Last Visit: off tele Subjective: Mr Alberts was comfortably sleeping in a sterile and walked into his room this morning. He walked with PT prior to me examining the patient. He did not have any new concerns, but was frustrated that he could not express himself. He also continued to complain of pain in his lower back. Vitals remain stable overnight. He did not have any fever. Review of Systems Constitutional: Reports: see HPI. Objective Last 24 Hrs of Vital Signs/I&O Vital Signs Date Time Temp Pulse Resp B/P B/P Pulse O2 O2 Flow FiO2 Mean Ox Delivery Rate 02/15 0700 97.6 86 16 120/52 96 Room Air 02/14 2215 97.7 90 16 122/54 96 Room Air 02/14 1508 97.5 90 20 128/60 96 Intake & Output 02/15 1600 02/15 0800 02/15 0000 Intake Total Output Total Balance Patient 210 lb Weight Weight Bed scale Measurement Method Physical Exam General Appearance: No Acute Distress Other Physical Findings: General Appearance: Alert, Oriented X3, Mild Distress Cardiovascular: Regular Rate Lungs: Clear to Auscultation, Normal Air Movement Abdomen: Soft, No Tenderness, Surgical site in dressing, no swelling/erythema/ signs of infection, skin ulceration( dressing in place ). Neurological: Strength 4/5 on RUE, Strenght 5/5 on LUE, LLE, RLE. Expressive aphasia. Reflexes 2+, No sensory deficits. Extremities: No Edema Current Medications: Current Medications Sig/Natalee Start time Last Medication Dose Route Stop Time Status Admin Alprazolam 0.25 MG ONCE ONE 02/14 2115 DC 02/14 PO 02/14 Alprazolam 0.25 MG DAILY 02/13 1000 AC 02/14 PO 02/20 0959 0747 Amlodipine Besylate 5 MG DAILY 02/12 1000 AC 02/14 PO 0747 Aspirin 81 MG DAILY 02/12 0300 AC 02/14 PO 0746 Atorvastatin Calcium 40 MG 1700 02/12 0300 AC 02/14 PO 1845 Cyclobenzaprine HCl 10 MG TID PRN 02/12 1545 AC 02/13 PO 2209 Docusate Sodium 100 MG DAILY NEEDED PRN 02/13 1915 AC PO Lidocaine 1 PAT DAILY 02/13 1000 AC 02/14 EXT 0747 Losartan Potassium 100 MG DAILY 02/12 1000 AC 02/14 PO 0747 Morphine Sulfate 2 MG Q6-PRN PRN 02/12 1745 AC 02/15 IV 0428 Nitroglycerin 0.5 GM Q6 02/13 1200 AC 02/14 TOP 2241 Oxycodone/ 1 TAB Q4P PRN 02/12 1745 AC 02/14 Acetaminophen PO 1205 Ramelteon 8 MG AT BEDTIME NEED.. 02/14 2115 AC 02/14 PO 2141 Rivaroxaban 15 MG BID 02/12 1000 AC 02/14 PO 2141 Senna 187 MG AT BEDTIME PRN 02/13 1915 AC 02/14 PO 0746 Simethicone 80 MG Q4P PRN 02/15 0300 AC 02/15 PO 0335 Zolpidem Tartrate 10 MG AT BEDTIME PRN 02/14 2130 AC PO Assessment/Plan Assessment: Mr. Salter is a 67-year-old unfortunate male with past medical history significant for hypertension, hyperlipidemia, alcohol induced pancreatitis, osteoarthritis, bilateral lower extremity DVT, bilateral unprovoked pulmonary embolism on Xarelto 15 twice daily, colon cancer status post resection presented to the emergency department with chief complaint of change in speech since 02/11 8 AM, and RUE stiffness (cannot make a fist) which was self-resolved. Pertinent labs in the last 24 hrs: No new labs Ischemic Stroke: Patient presented with speech changes, expressive aphasia since 8 AM on the day of admission. Also reports difficulty with right hand grasping, however self-resolved. Mild weakness noticed on right side. However CT head, CTA head was negative. Given his recent anticoagulation, Hemorrhage was ruled out. However given all his his risk factors- deep vein thrombosis, pulmonary embolism, cancer history, further workup should be done. * NIH stroke scale overnight mostly 3, unchanged from previous days * Fall precautions * Aspirin 81 daily * Lipitor 40 daily * Recent echo in December 2017 showed ejection fraction 55% with impaired left ventricular relaxation - MRI Head: 1. There are multiple areas of restricted diffusion in the cerebellar hemispheres in the bilateral frontoparietal regions, most extensive on the right superiorly, consistent with areas of infarction. There is no evidence of hemorrhagic transformation. 2. There is diffuse volume loss and there are chronic microvascular ischemic changes. - MRI Spine: 1. Markedly suboptimal study, and only motion degraded sagittal images were obtained. 2. There is spondylosis at L2-L3, L4-L5 and L5-S1 as described above. There does not appear to be central stenosis. * Cardio consult recommended adding NG ointment 0.5gm q6. * Neuro consult appreciated * PTOT recommended STR * Speech and swallow recommended Puree/thin liquid * HbA1c 5.1 and lipid panel (WNL) Elevated troponin, demand ischemia: On presentation, patient had mildly elevated troponin. Patient was recently admitted here and had a type II OH, demand ischemia. Troponin 0.42 at the time of admission. EKG showed sinus rhythm, rates of [address]-T wave changes. Looks like a type II OH/demand ischemia from PE. * Serial troponin and EKG had been trending down to 0.32. * Cardiology consult as above - Pending Echo - Continue aspirin and Lipitor as above Stage IV colon cancer with liver metastasis: During his last admission, Endoscopy revealed submucosal nodule second portion of the duodenum, scattered gastric erosions with no stigmata of bleeding, and non-obstructing schtazki's ring. Colonoscopy revealed an ileocecal valve mass which pathology subsequently showed to be invasive moderately to poorly differentiated adenocarcinoma. Oncology was consulted and recommended CT abdomen/pelvis that revealed metastatic disease with large mesenteric lymph nodes, retroperitoneal and upper abdominal lymph nodes, and suspected hepatic metastases with no evidence of bowel obstruction. Underwent hemicolectomy and he has been following up with oncologist as an outpatient to start chemotherapy. Bilateral Lower Extremity DVTs and Bilateral PE s/p IVC Filter placement: Patient was recently admitted for bilateral lower extremity DVTs and PE. Because he needed to have a hemicolectomy, an IVC filter was placed by vascular surgery. * xaralto 15 mg twice daily for 1 more week and then start 20 mg daily Hypertension * Continue amlodipine 5 daily and losartan 100 daily Chronic back pain * Currently on Percocet/IV morphine 2mg. Patient appeared restless overnight but refused pain meds. Patient is full code DVT prophylaxis on Xarelto + ALPS Regular diet Problem List: 1. Expressive aphasia 2. CVA (cerebral vascular accident) 3. Adenocarcinoma of colon metastatic to liver Pain Ratin Pain Location: Back Pain Goal: Pain 4 or less Pain Plan: percocet Tomorrow's Labs & Rationales: cbc
--- NOTE | 2018-02-15 12:10 | PN- Att Addend ---
Attending Addendum Attending Brief Note Patient seen and examined. Plan of care discussed with the medical team and the patient. Available lab work and radiology test reports were reviewed. Patient's found to be sitting in chair. He appears pale. Patient states that he is having lower back pain and appears irritable. His by mouth intake has been relatively poor. Patient denies any recent fever or chest pain difficulty breathing. Exam: General: Patient awake but appears lethargic and irritable- patient suddenly pushed his table away; he appears pale CVS: S1 plus S2 without any murmur or gallops Chest: Few scattered crepitation without any wheeze. There is no respiratory distress. 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: Residual right-sided weaknessl appears lethargic but follows commands appropriately Extremities: No edema; no clubbing or cyanosis noted Current Medications Sig/Natalee Start time Last Medication Dose Route Stop Time Status Admin Alprazolam 0.25 MG ONCE ONE 02/14 2115 DC 02/14 PO 02/14 Alprazolam 0.25 MG DAILY 02/13 1000 AC 02/15 PO 02/20 0959 0851 Amlodipine Besylate 5 MG DAILY 02/12 1000 AC 02/15 PO 0850 Aspirin 81 MG DAILY 02/12 0300 AC 02/15 PO 0850 Atorvastatin Calcium 40 MG 1700 02/12 0300 AC 02/14 PO 1845 Cyclobenzaprine HCl 10 MG TID PRN 02/12 1545 AC 02/13 PO 2209 Docusate Sodium 100 MG DAILY NEEDED PRN 02/13 1915 AC PO Lidocaine 1 PAT DAILY 02/13 1000 AC 02/15 EXT 0857 Losartan Potassium 100 MG DAILY 02/12 1000 AC 02/15 PO 0850 Morphine Sulfate 2 MG Q6-PRN PRN 02/12 1745 AC 02/15 IV 1012 Nitroglycerin 0.5 GM Q6 02/13 1200 AC 02/14 TOP 2241 Oxycodone/ 1 TAB Q4P PRN 02/12 174 AC 02/14 Acetaminophen PO 1205 Ramelteon 8 MG AT BEDTIME NEED.. 02/14 2115 AC 02/14 PO 2141 Rivaroxaban 15 MG BID 02/12 1000 AC 02/15 PO 0850 Senna 187 MG AT BEDTIME PRN 02/13 1915 AC 02/14 PO 0746 Senna/Docusate Sodium 2 TAB QPM 02/15 2200 AC PO Simethicone 80 MG Q4P PRN 02/15 0300 AC 02/15 PO 0335 Zolpidem Tartrate 10 MG AT BEDTIME PRN 02/14 2130 AC PO Laboratory Tests 02/13/18 0643: CBC w Diff NO MAN DIFF REQ, RBC 3.16 L, MCV 80.6, MCH 26.0 L, MCHC 32.3 L, RDW 15.3 H, MPV 8.6, Gran % 66.6, Lymphocytes % 12.1 L, Monocytes % 7.4, Eosinophils % 12.5 H, Basophils % 1.4, Absolute Granulocytes 6.3, Absolute Lymphocytes 1.1 L, Absolute Monocytes 0.7 H, Absolute Eosinophils 1.2, Absolute Basophils 0.1 Vital Signs Date Time Temp Pulse Resp B/P B/P Pulse O2 O2 Flow FiO2 Mean Ox Delivery Rate 02/15 0850 86 120/52 02/15 0700 97.6 86 16 120/52 96 Room Air 02/14 2215 97.7 90 16 122/54 96 Room Air 02/14 1508 97.5 90 20 128/60 96 Intake & Output 02/15 1600 02/15 0800 02/15 0000 Intake Total Output Total Balance Patient 210 lb Weight Weight Bed scale Measurement Method Assessment * CVA * Elevated troponin * hypertension, * hyperlipidemia, * History of alcohol induced pancreatitis, * osteoarthritis, * bilateral lower extremity DVT, bilateral unprovoked pulmonary embolism on Xarelto * Stage IV adenocarcinoma of colon with liver metastases- waiting for port insertion Plan * Continue aspirin and Lipitor and other medications * Await short-term rehabilitation placement on Saturday * Continue PT/OT
[2018-02-15 16:01] VITALS: BP 124/54
[2018-02-15 22:31] VITALS: BP 120/60
[2018-02-16 06:13] VITALS: BP 120/55
--- NOTE | 2018-02-16 09:14 | PN- Housestaff ---
Subjective Follow-up For: CVA Tele-Events Since Last Visit: Off telemetry Subjective: No acute events overnight. Patient states no issues. Review of Systems Constitutional: Reports: see HPI. Objective Last 24 Hrs of Vital Signs/I&O Vital Signs Date Time Temp Pulse Resp B/P B/P Pulse O2 O2 Flow FiO2 Mean Ox Delivery Rate 02/16 1425 98.2 93 18 124/82 97 Room Air 02/16 0613 97.8 78 20 120/55 96 Room Air 02/15 2231 97.8 83 16 120/60 98 Room Air Intake & Output 02/16 1600 02/16 0800 02/16 0000 Intake Total 400 110 350 Output Total 300 Balance 400 110 50 Intake, IV 10 Intake, Oral 400 100 350 Output, Urine 300 Patient 201 lb Weight Weight Bed scale Measurement Method Physical Exam General Appearance: Alert, uncooperative and reluctant neuro exam Skin: skin ulcerations covered by dressing Cardiovascular: Regular Rate, Normal S1, Normal S2 Lungs: Clear to Auscultation, Normal Air Movement Abdomen: Normal Bowel Sounds, Soft, No Tenderness Neurological: Reflexes 2+, cranial nerves II through XII appears grossly intact except patient appears to have trouble with following finger/ movements. Unclear whether this is due to poor effort this patient was able to follow my finger with his eyes after 3 attempts of repeat commands Extremities: 4-5 right sided strengthcompared to left 5 out of 5 Assessment/Plan Assessment: A: 67-year-old unfortunate male with past medical history significant for hypertension, hyperlipidemia, alcohol induced pancreatitis, osteoarthritis, bilateral lower extremity DVT, bilateral unprovoked pulmonary embolism on Xarelto 15 twice daily, colon cancer status post resection presented to the emergency department with chief complaint of change in speech since 02/11/2018 8 AM, and RUE stiffness found to have a CVA. P: #?bloody BM H/H dropped 8.2 -> 7.2 -nurse reported blood BM with maggie blood this evening -repeat cbc @ 530pm -guaiac all stools -consider GI consult -typed and cross pending #CVA: MRI Head: 1. There are multiple areas of restricted diffusion in the cerebellar hemispheres in the bilateral frontoparietal regions, most extensive on the right superiorly, consistent with areas of infarction. There is no evidenceof hemorrhagic transformation. 2. There is diffuse volume loss and there are chronic microvascular ischemicchanges. MRI Spine: 1. Markedly suboptimal study, and only motion degraded sagittal images were obtained. 2. There is spondylosis at L2-L3, L4-L5 and L5-S1 as described above. Theredoes not appear to be central stenosis. * Continue neuro checks and fall precautions * Continue aspirin and Lipitor * Recent echo in December 2017 showed ejection fraction 55% with impaired left ventricular relaxation * Cardio consult recommended adding NG ointment 0.5gm q6. * Continue cardiology neurology recommendations * PTOT recommended STR * Speech and swallow recommended Puree/thin liquid * HbA1c 5.1 and lipid panel (WNL) #Elevated troponin, demand ischemia Troponins 0.42, 0.26, 0.32 Echocardiogram: 1. Limited study due to patient agitation. 2. Normal EF of 55% . * Continue cardiology recommendations * Continue aspirin and Lipitor as above #Stage IV colon cancer with liver metastasis: During his last admission, Endoscopy revealed submucosal nodule second portion of the duodenum, scattered gastric erosions with no stigmata of bleeding, and non-obstructing schtazki's ring. Colonoscopy revealed an ileocecal valve mass which pathology subsequently showed to be invasive moderately to poorly differentiated adenocarcinoma. Oncology was consulted and recommended CT abdomen/pelvis that revealed metastatic disease with large mesenteric lymph nodes, retroperitoneal and upper abdominal lymph nodes, and suspected hepatic metastases with no evidence of bowel obstruction. Underwent hemicolectomy and he has been following up with oncologist as an outpatient to start chemotherapy. #Bilateral Lower Extremity DVTs and Bilateral PE s/p IVC Filter placement: Patient was recently admitted for bilateral lower extremity DVTs and PE. Because he needed to have a hemicolectomy, an IVC filter was placed by vascular surgery. * xaralto 15 mg twice daily for 1 more week and then start 20 mg daily #Hypertension * Continue amlodipine and losartan #Chronic back pain * Continue pain control #full code #DVT prophylaxis - Xarelto Problem List: 1. CVA (cerebral vascular accident) 2. Adenocarcinoma of colon metastatic to liver Pain Ratin Pain Location: none Pain Goal: Pain 4 or less Pain Plan: pain pathway Tomorrow's Labs & Rationales: cbc bep
--- NOTE | 2018-02-16 11:32 | PN- Att Addend ---
Attending Addendum Attending Brief Note Patient seen and examined. Plan of care discussed with the medical team and the patient. Available lab work and radiology test reports were reviewed. Patient's found to be lying in bed with his clothes off. Patient has a sitter. As per sitter patient has been confused a table and could not sleep last night. He appears pale. His by mouth intake has been relatively poor. Patient denies any recent fever or chest pain difficulty breathing. Exam: General: Patient awake but appears lethargic and irritable- patient suddenly pushed his table away; he appears pale; patient lying in bed with only underwear on CVS: S1 plus S2 without any murmur or gallops Chest: Few scattered crepitation without any wheeze. There is no respiratory distress. Abdomen: Soft non-tender, bowel sound present, no guarding or rebound [employer]: Residual right-sided weaknessl appears lethargic but follows commands appropriately Extremities: No edema; no clubbing or cyanosis noted Assessment * CVA * Elevated troponin * ? delirium * hypertension, * hyperlipidemia, * History of alcohol induced pancreatitis, * osteoarthritis, * bilateral lower extremity DVT, bilateral unprovoked pulmonary embolism on Xarelto * Stage IV adenocarcinoma of colon with liver metastases- waiting for port insertion as out pt Plan * Continue aspirin and Lipitor and other medications * Await short-term rehabilitation placement when mental status stable * Continue PT/OT Current Medications Sig/Natalee Start time Last Medication Dose Route Stop Time Status Admin Alprazolam 0.25 MG DAILY 02/13 1000 AC 02/16 PO 02/20 0959 0821 Amlodipine Besylate 5 MG DAILY 02/12 1000 AC 02/16 PO 0821 Aspirin 81 MG DAILY 02/12 0300 AC 02/16 PO 0820 Atorvastatin Calcium 40 MG 1700 02/12 0300 AC 02/15 PO 2216 Cyclobenzaprine HCl 10 MG TID PRN 02/12 1545 AC 02/16 PO 0821 Docusate Sodium 100 MG DAILY NEEDED PRN 02/13 1915 AC PO Lidocaine 1 PAT DAILY 02/13 1000 AC 02/16 EXT 0829 Losartan Potassium 100 MG DAILY 02/12 1000 AC 02/16 PO 0821 Morphine Sulfate 2 MG Q6-PRN PRN 02/12 1745 AC 02/16 IV 0823 Nitroglycerin 0.5 GM Q6 02/13 1200 AC 03/25 TOP 0540 Oxycodone/ 1 TAB Q4P PRN 02/12 1745 AC 02/15 Acetaminophen PO 2356 Ramelteon 8 MG AT BEDTIME NEED.. 02/14 211 AC 02/14 PO 2141 Rivaroxaban 15 MG BID 02/12 1000 AC 02/16 PO 0821 Senna 187 MG AT BEDTIME PRN 02/13 1915 AC 02/14 PO 0746 Senna/Docusate Sodium 2 TAB QPM 02/15 2200 AC 02/15 PO 2216 Simethicone 80 MG Q4P PRN 02/15 0300 AC 02/15 PO 0335 Zolpidem Tartrate 10 MG AT BEDTIME PRN 02/14 2130 DC 02/15 PO 2351 Vital Signs Date Time Temp Pulse Resp B/P B/P Pulse O2 O2 Flow FiO2 Mean Ox Delivery Rate 02/16 0613 97.8 78 20 120/55 96 Room Air 02/15 2231 97.8 83 16 120/60 98 Room Air 02/15 1601 98.3 88 16 124/54 95 Intake & Output 02/16 1600 02/16 0800 02/16 0000 Intake Total 110 350 Output Total 300 Balance 110 50 Intake, IV 10 Intake, Oral 100 350 Output, Urine 300 Patient 201 lb Weight Weight Bed scale Measurement Method
[2018-02-16 14:25] VITALS: BP 124/82
[2018-02-16 19:23] LABS: ABSOLUTE BASOPHIL COUNT 0.1 /CUMM (0.0-0.2); ABSOLUTE EOSINOPHIL COUNT 0.3 /CUMM (0.0-0.7); ABSOLUTE GRANULOCYTE CT 7.3 /CUMM (1.4-6.5); ABSOLUTE LYMPH COUNT 0.9 /CUMM (1.2-3.4); ABSOLUTE MONOCYTE COUNT 0.6 /CUMM (0.10-0.60); BASOPHIL % 0.7 % (0.0-2.0); EOSINOPHIL % 3.8 % (0-5); GRANULOCYTE % 79.7 % (42.2-75.2); MEAN CORPUSCULAR HGB 25.7 PG (27.0-31.0); MEAN CORPUSCULAR HGB CONC 32.1 G/DL (33.0-37.0); MEAN CORPUSCULAR VOLUME 79.9 FL (80.0-94.0); MEAN PLATELET VOLUME 8.6 FL (7.4-10.4); PLATELET COUNT 394 /CUMM (130-400); RBC DISTRIBUTION WIDTH 15.9 % (11.5-14.5); WHITE BLOOD CELL COUNT 9.1 /CUMM (4.8-10.8)
[2018-02-16 19:44] LABS: HEMATOCRIT 22.3 % (42-52)
--- NOTE | 2018-02-16 20:59 | Event Note ---
Event Note Event Note: The patient had an episode of unwitnessed rectal bleeding earlier this evening. Stat CBC and stat GI consult was requested. * Type and crossmatch done. * Got consent from patient regarding blood transfusion * Hemoglobin dropped to 7.2 from 8.8. * Spoke with Dr. Angel on-call business support regarding rectal bleed and acute drop in hemoglobin. * Advised to change diet to clear liquids * Transfuse 1 unit, keep hemoglobin about 8 * 2 large IV bore needles * Check CBC Q12h for now. * May continue ASA 81 mg daily, but switch to enteric coated form- Ecotrin 81 mg daily * Added prophylactic PPI daily. * hold Xarelto, for now. * Advised following up with oncology in am to get a general consensus regarding the overall risk:benefit ratio, or when to resume A/C therapy. * If active rebleed of any hemodynamic significance, will call GI. * DVT prophylaxis with mechanical ALPS. * Notified Dr. Carmen zaman about the above events * Discussed with patient at bedside
[2018-02-16 22:48] VITALS: BP 118/58
--- NOTE | 2018-02-16 22:49 | Cons- Gastroenterology ---
General Information and HPI Consulting Request Date of Consult: 02/16/18 Requested By: Adams CORTES,Hema Reason for Consult: I was just notified about 1/2 hour ago of a request to assess rectal bleeding in a patient on aspirin & Xarelto, with numerous comorbidities, including metastatic colon CA post right hemicolectomy, recent B/L PE & B/L LE DVT, recently readmitted 02/12/18 with [place] & CVA. *Extensive records reviewed. Source of Information: patient, old records Exam Limitations: extensive PMHx/PSHx History of Present Illness: Unfortunate 67 y/o male, HTN, HLD, hx EtOH pancreatitis, ex-smoker, DJD, post recent 01/15/18: B/L LE infrapopliteal DVT & large B/L PE (verified by B/L LE doppler & CTA chest ; d-Dimer [id number] then)-> placed on Xarelto. 01/17/18: elevated CEA 64.8, nl AFP 2.2. The patient subsequently had 01/22/18: EGD to D3/baseline colonoscopy per Dr. New (for anemia, GI bleeding, NSAID use, elevated CEA, & hypercoaguable state)- gastric erosions with antral bxs HP-neg, submucosal nodule D2- bxs nl duodenal mucosa & submucosa, nonobstructing Schatzki ring with Z line at 43 cm; large fungating mass at ICV- SPOT tattoo/bxs moderate to poorly differentiated adeno CA, no abnormal loss of DNA mismatch repair, 1 cm right colon lipoma, & mixed grade 2 hemorrhoids. There was no mention of diverticula on the colonoscopy report, however preoperative CT showed moderate sigmoid diverticula & suggestion of liver metastases. The colon lesion on CT appeared to be at the hepatic flexure. 01/23/18: *IVC filter placed, as patient was at risk for GI bleeding. Having stated that, the patient obviously was hypercoagulable from underlying malignancy & A/C tx was advised for 3 months, per Heme/Onc, based on the large B/L PE (which existed prior to the IVC filter) & B/L LE DVT. 01/24/18: Extended right hemicolectomy, removal of 5 cm TI, & open wedge bx of liver mass, per Dr. Patiño- Colon pathology- poorly differentiated adeno CA extending into pericolonic adipose tissue, 2 of 13 nodes positive, no loss of DNA mismatch repair, submucosal lipoma; liver bx- met colon Ca (*consistent with Stage 4/Asher D colon Ca). The patient had not yet had a Port-A-Cath placed for CTX, which had not yet been started. He is a full code. The patient was admitted to [facility] 02/12/18 with dysarthria, slurred speech, and right-sided weakness, clinically consistent with acute left MCA ischemic stroke. He had multiple imaging studies per neurology (*see imaging section). He also had a troponin bump, felt to probably be demand ischemia. : Echocardiogram- normal LVEF 55%, without regional wall motion abnormality or thrombus. No PFO/ASD. There is no history of A. fib. *He was on outpatient Xarelto, started approximately 1 month prior, at the time of the B/L LE DVT & large B/L PE. *ASA 81 mg daily was added to the Xarelto at the time of his 02/12 readmission for CVA/demand ischemia. Over the past 1-2 months, the has been seen by numerous disciplines, including oncology, GI, surgery, vascular, cardiology, & neurology. He was getting PT/OT. The patient's Hgb since 01/22/18 has been in the low-to-mid 8 range. He had never been transfused. 02/11/18: PT 24.9, INR 2.27, PTT 29 (albeit on Xarelto), nl LFTs with alb 3.5, glob 3.2, *troponin 0.42-> 0.36-> 0.32. 02/12/18: Admission WBC 12.6 (76% gran/10 gran Ab), *H/H 8.6/26.9, MCV 81.1, RDW 15.4, PLT 476, BUN/Cr 14/0.8, GFR > 60, Na 140, K 4.0, HCO3 25, AG 14, nl FT4 with nl TSH 1.06 The patient had an episode of unwitnessed rectal bleeding earlier this evening of 02/16/18, & his 02/16/18: Labs- WBC 9.1, *H/H 7.2/22.3, MCV 79.9, RDW 15.9, PLT 394, prompting the request for a GI consult. He was hemodynamically stable and afebrile, with O2 sat RA 97%. He was neither hypotensive nor tachycardic. As per my discussion with the medical house staff a short while ago, Xarelto was held, but baby ASA was continued. He was not on NSAIDs. According to the patient's RN, he was on the toilet bowl and was found to have blood in the toilet water, along with brown stool and urine. The patient will only answer limited questions. He denied any abdominal pain, rectal pain, diarrhea, constipation, obstipation, or incomplete evacuation. He had no upper GI symptoms, hematemesis, or melena. He denied any chest pain, shortness of breath, or additional neurologic symptoms, compared to when he was admitted 02/12/18. He stated his sister had colon CA. The patient has a 1:1 sitter. The patient had been confused, but is now O x 3. His intake has been poor. He was previously lethargic and irritable. He was previously found lying in bed by the hospitalist service with only his underwear on. The patient was extremely depressed. He claimed he had no living will or POA and "wanted to ". He was in the process of being transfused. He had passed a swallow evaluation on 02/12/18. Allergies/Medications Allergies: Coded Allergies: No Known Allergies (09/13/17) Home Med List: Amlodipine Besylate 5 MG TABLET 1 TAB PO DAILY BP (Reported) Losartan Potassium 100 MG TABLET 1 TAB PO DAILY BP (Reported) Meloxicam 7.5 MG TABLET 1 TAB PO DAILY inflammation pain (Reported) Oxycodone HCl/Acetaminophen (Percocet 5-325 MG Tablet) 5 MG-325 MG TABLET 1 TAB PO Q4P PRN PAIN SCALE 7-10 (SEVERE) Rivaroxaban (Xarelto) 15 MG TABLET 1 TAB PO BID pulmonary embolism take 1 tab (15 mg) twice a day for 3 weeks then switch to 1 tab (20 mg) daily with food. Current Medications: Current Medications Sig/Natalee Start time Last Medication Dose Route Stop Time Status Admin Alprazolam 0.25 MG DAILY 02/13 1000 AC 02/16 PO 02/20 0959 0821 Amlodipine Besylate 5 MG DAILY 02/12 1000 AC 02/16 PO 0821 Aspirin 81 MG DAILY 02/12 0300 AC 02/16 PO 0820 Atorvastatin Calcium 40 MG 1700 02/12 0300 AC 02/16 PO 1733 Cyclobenzaprine HCl 10 MG TID PRN 02/12 1545 AC 02/16 PO 0821 Docusate Sodium 100 MG DAILY NEEDED PRN 02/13 191 AC PO Lidocaine 1 PAT DAILY 02/13 1000 AC 02/16 EXT 0829 Losartan Potassium 100 MG DAILY 02/12 1000 AC 02/16 PO 0821 Morphine Sulfate 2 MG Q6-PRN PRN 02/12 1745 AC 02/16 IV 1738 Nitroglycerin 0.5 GM Q6 02/13 1200 AC 02/16 TOP 1732 Oxycodone/ 1 TAB Q4P PRN 02/12 1745 AC 02/16 Acetaminophen PO 2141 Ramelteon 8 MG AT BEDTIME NEED.. 02/14 2115 AC 02/16 PO 2141 Rivaroxaban 15 MG BID 02/12 1000 DC 02/16 PO 0821 Senna 187 MG AT BEDTIME PRN 02/13 1915 AC 02/14 PO 0746 Senna/Docusate Sodium 2 TAB QPM 02/15 2200 AC 02/16 PO 2137 Simethicone 80 MG Q4P PRN 02/15 0300 AC 02/15 PO 0335 Zolpidem Tartrate 10 MG AT BEDTIME PRN 02/16 2345 UNVr 02/16 PO 2359 Zolpidem Tartrate 10 MG AT BEDTIME PRN 02/14 2130 DC 02/15 PO 2351 Past History Travel History Traveled to [place] past 21 day No Medical History Blood Transfusion Hx: No (not before 02/16/18) Neurological: NONE (02/12/18), CVA EENT: NONE Cardiovascular: hypertension, hyperlipidemia Respiratory: NONE Gastrointestinal: pancreatitis (ex-smoker/ex-EtOH) Hepatic: NONE Renal: NONE Musculoskeletal: osteoarthritis, rotator cuff injury Psychiatric: depression (post CVA) Endocrine: NONE Blood Disorders: DVT (01/15/18: B/L LE; has IVC filt), PE (01/15/18: large B/L PE-Xarelto) Cancer(s): colon/rectal cancer LEATHER LEVELER/Reproductive: NONE Surgical History Surgical History: colon resection (01/24/18: extended right thomas), B/L rotator cuff repair Family History Relations & Conditions If Any: SISTER, Age 63. FH: colon cancer BROTHER FHx: congenital heart disease MOTHER, ; Cause: Old age. FATHER, ; Cause: Old age. Relation not specified for: colon cancer Psychosocial History Where Do You Live? Home Who Do You Live With? spouse Services at Home: None Primary Language: Greenlandic Smoking Status: Former Smoker ETOH Use: former EtOH Illicit Drug Use: denies illicit drug use (qzzzzzzzzzzzzzzzzzzzzzzzzzzzzz), unknown Living Will? no Power of Core Driller Helper/HCP? no Other Social History: to Rowena aSlter (cell:[phone]). No children. Remote hx cigarette smoking & EtOH, both reportedly stopped in the . Denied illicit drug use. 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 Functional Ability ADLs Unknown: dressing, eating, toileting, bathing. Ambulation: unknown IADLs Unknown: shopping, housework, finances, food prep, telephone, transportation, medication admin. 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 (*See HPI). Review of Systems All Other Systems: Reviewed and Negative (pt refused to elaborate ROS) Exam & Diagnostic Data Vital Signs and I&O Vital Signs Date Time Temp Pulse Resp B/P B/P Pulse O2 O2 Flow FiO2 Mean Ox Delivery Rate 02/16 1425 98.2 93 18 124/82 97 Room Air 02/16 0613 97.8 78 20 120/55 96 Room Air 02/15 2231 97.8 83 16 120/60 98 Room Air Intake & Output 02/16 1600 02/16 0400 02/15 1600 02/15 0400 02/14 1600 02/14 040 Intake Total 510 350 420 410 120 Output Total 300 350 Balance 510 50 70 410 120 Intake, IV 10 10 Intake, Oral 500 350 420 400 120 Output, Urine 300 350 Patient 201 lb 210 lb 210 lb Weight Weight Bed scale Bed scale Bed scale Measurement Method Physical Exam: Well-developed, well-nourished, depressed male, in NAD, slightly agitated. Sclera anicteric. Conjunctiva pink. Oropharynx clear. No oral thrush. No aphthous ulcers. There is no adenopathy, thyromegaly, or JVD. No peripheral stigmata of inflammatory bowel disease or chronic liver disease on exam. No spiders on the anerior chest wall. No gynecomastia. No CVA tenderness. Lungs: clear to A&P, with slight decreased BS at the bases B/L. No wheezing, rales, or rhonchi. Heart exam: regular rate rhythm, S1 and S2, without any murmur. Abdominal exam: normal bowel sounds, soft belly, essentially nontender (except near healing wound), without guarding or rebound. Midline wound dressed. No mass. No organomegaly. No fluid shift. No pulsatile mass. No epigastric bruit. Digital rectal exam by myself 02/16/18: Brown stool mixed with BRB, obviously OB positive, no masses, normal sphincter tone, no external hemorrhoids , no fissure, smooth enlarged prostate. Extremities: without C, C, or E. No palpable cords. Mild DJD, without acute arthropathy. No rash. Old tattoo. No palmar erythema. No Dupuytren's contractures. DP 1+ bilaterally. Right handed. Mild to moderate dysarthria & verbal apraxia, CN II-XII essentially intact, except for mild R VII. Motor RUE 3-4/5, RLE 4-5/5. Motor 5/5 on left. DTR 2+ on left, 2-3+ on right. No clonus. Alert and oriented x 3, but very depressed & agitated. No tremor. No asterixis. Results Pertinent Lab Results: Laboratory Tests 02/17 1844 Hematology CBC w Diff NO MAN DIFF REQ WBC (4.8 - 10.8 /CUMM) 9.1 RBC (4.70 - 6.10 /CUMM) 2.80 L Hgb (14.0 - 18.0 G/DL) 7.2 *L Hct (42 - 52 %) 22.3 L MCV (80.0 - 94.0 FL) 79.9 L MCH (27.0 - 31.0 PG) 25.7 L MCHC (33.0 - 37.0 G/DL) 32.1 L RDW (11.5 - 14.5 %) 15.9 H Plt Count (130 - 400 /CUMM) 394 MPV (7.4 - 10.4 FL) 8.6 Gran % (42.2 - 75.2 %) 79.7 H Lymphocytes % (20.5 - 51.1 %) 9.3 L Monocytes % (1.7 - 9.3 %) 6.5 Eosinophils % (0 - 5 %) 3.8 Basophils % (0.0 - 2.0 %) 0.7 Absolute Granulocytes (1.4 - 6.5 /CUMM) 7.3 H Absolute Lymphocytes (1.2 - 3.4 /CUMM) 0.9 L Absolute Monocytes (0.10 - 0.60 /CUMM) 0.6 Absolute Eosinophils (0.0 - 0.7 /CUMM) 0.3 Absolute Basophils (0.0 - 0.2 /CUMM) 0.1 Imaging/Other Studies: 01/23/18: CT ABDOMEN AND PELVIS WITH CONTRAST- 1. *Large hepatic flexure mass is seen suspicious for a colon cancer. This appears to be widely metastatic with large mesenteric lymph nodes, retroperitoneal and upper abdominal lymph nodes, and suspected hepatic metastases seen. 2. No evidence of bowel obstruction or perforation. 3. Large amounts of dense material within the gallbladder, likely sludge. Gallbladder otherwise unremarkable. 4. Multiple bilateral renal masses, incompletely characterized on this exam, but similar to older exams and most likely small cysts. 02/11/18: EKG- NSR @ 77, baseline artifact, IRBBB, flipped T in III, flat T in F , w/o significant change. 02/12/18: EKG- NSR @ 97, borderline LAD, IRBBB, w/o change. 02/12/18: EKG- NSR @ 78, IRBBB, borderline T wave abnl inferiorly. 02/11/18: CT HEAD WO IV CONTRAST- Evidence of chronic white matter infarction and ischemic change, mostly in right parietal & occipital region. No acute midline shift, mass effect or hemorrhage. 02/11/18: CT HEAD ANGIOGRAM- Normal CTA of head. 02/12/18: DUPLEX BILATERAL CAROTID ULTRASOUND- Plaque is present in the internal carotid arteries but velocity measurements are normal and there is no evidence to suggest a hemodynamically significant stenosis of greater than 50% diameter reduction. Left vertebral artery is not visualized. 02/13/18: MRI-HEAD W/O DONNIE- 1. There are multiple areas of restricted diffusion in the cerebellar hemispheres in the bilateral frontoparietal regions, most extensive on the right superiorly, consistent with areas of infarction. There is no evidence of hemorrhagic transformation. 2. There is diffuse volume loss and there are chronic microvascular ischemic changes. 3. This critical result was discussed with Brandi Stein by telephone on 02/13/2018 at 12:50 PM and it was ascertained that the content and urgency of the report was understood at the time of direct communication.. DICTATED BY: Chaim Francis MD DATE/TIME DICTATED:02/13/18 / 1238 02/13/18: MR LUMBAR SPINE WITHOUT CONTRAST- 1. Markedly suboptimal study, and only motion degraded sagittal images were obtained. 2. There is spondylosis at L2-L3, L4-L5 and L5-S1 as described above. There does not appear to be central stenosis. DICTATED BY: Chaim Francis MD DATE/TIME DICTATED:02/13/18 / 12502/13/18: Echocardiogram- normal LVEF 55%, without regional wall motion abnormality or thrombus. Tr MR/TR. Mild AR. No PFO/ASD. Assessment/Plan Assessment/Recommendations: Unfortunate 67 y/o male, HTN, HLD, hx EtOH pancreatitis, ex-smoker, DJD, post recent 01/15/18: B/L LE infrapopliteal DVT & large B/L PE (verified by B/L LE doppler & CTA chest ; d-Dimer [id number] then)-> placed on Xarelto. 01/17/18: elevated CEA 64.8, nl AFP 2.2.The patient subsequently had 01/22/18: EGD to D3/baseline colonoscopy per Dr. New (for anemia, GI bleeding, NSAID use, elevated CEA, & hypercoaguable state)- gastric erosions with antral bxs HP-neg, submucosal nodule D2- bxs nl duodenal mucosa & submucosa, nonobstructing Schatzki ring with Z line at 43 cm; large fungating mass at ICV- SPOT tattoo/bxs moderate to poorly differentiated adeno CA, no abnormal loss of DNA mismatch repair, 1 cm right colon lipoma, & mixed grade 2 hemorrhoids. There was no mention of diverticula on the colonoscopy report, however preoperative CT showed moderate sigmoid diverticula & suggestion of liver metastases. The colon lesion on CT appeared to be at the hepatic flexure. 01/23/18: *IVC filter placed, as patient was at risk for GI bleeding. Having stated that, the patient obviously was hypercoagulable from underlying malignancy & A/C tx was advised for 3 months, per Heme/Onc, based on the large B/L PE (which existed prior to the IVC filter) & B/L LE DVT. 01/24/18: Extended right hemicolectomy, removal of 5 cm TI, & open wedge bx of liver mass, per Dr. Patiño- Colon pathology- poorly differentiated adeno CA extending into pericolonic adipose tissue, 2 of 13 nodes positive, no loss of DNA mismatch repair, submucosal lipoma; liver bx- met colon Ca (*consistent with Stage 4/Asher D colon Ca). The patient had not yet had a Port-A-Cath placed for CTX, which had not yet been started. He is a full code. The patient was admitted to [facility] 02/12/18 with dysarthria, slurred speech, and right-sided weakness, clinically consistent with acute left MCA ischemic stroke. He had multiple imaging studies per neurology (*see imaging section). He also had a troponin bump, felt to probably be demand ischemia. : Echocardiogram- normal LVEF 55%, without regional wall motion abnormality or thrombus. No PFO/ASD. There is no history of A. fib. *He was on outpatient Xarelto, started approximately 1 month prior, at the time of the B/L LE DVT & large B/L PE. *ASA 81 mg daily was added to the Xarelto at the time of his 02/12 readmission for CVA/demand ischemia. Over the past 1-2 months, the has been seen by numerous disciplines, including oncology, GI, surgery, vascular, cardiology, & neurology. He was getting PT/OT. The patient's Hgb since 01/22/18 has been in the low-to-mid 8 range. He had never been transfused. 02/11/18: PT 24.9, INR 2.27, PTT 29 (albeit on Xarelto), nl LFTs with alb 3.5, glob 3.2, *troponin 0.42-> 0.36-> 0.32. 02/12/18: Admission WBC 12.6 (76% gran/10 gran Ab), *H/H 8.6/26.9, MCV 81.1, RDW 15.4, PLT 476, BUN/Cr 14/0.8, GFR > 60, Na 140, K 4.0, HCO3 25, AG 14, nl FT4 with nl TSH 1.06 The patient had an episode of unwitnessed rectal bleeding earlier this evening of 02/16/18, & his 02/16/18: Labs- WBC 9.1, *H/H 7.2/22.3, MCV 79.9, RDW 15.9, PLT 394, prompting the request for a GI consult. He was hemodynamically stable and afebrile, with O2 sat RA 97%. He was neither hypotensive nor tachycardic. As per my discussion with the medical house staff a short while ago, Xarelto was held, but baby ASA was continued. He was not on NSAIDs. According to the patient's RN, he was on the toilet bowl and was found to have blood in the toilet water, along with brown stool and urine. The patient will only answer limited questions. He denied any abdominal pain, rectal pain, diarrhea, constipation, obstipation, or incomplete evacuation. He had no upper GI symptoms, hematemesis, or melena. He denied any chest pain, shortness of breath, or additional neurologic symptoms, compared to when he was admitted 02/12/18. He stated his sister had colon CA. The patient has a 1:1 sitter. The patient had been confused, but is now O x 3. His intake has been poor. He was previously lethargic and irritable. He was previously found lying in bed by the hospitalist service with only his underwear on. The patient was extremely depressed. He claimed he had no living will or POA (verified by his , whom I called), and "wanted to ". He was in the process of being transfused. He had passed a swallow evaluation on 02/12/18. *The patient's 01/15/18: B/L LE DVT & large B/L PE most probably were from a hypercoagulable state, related to his stage IV colon Ca. *He was placed on Xarelto at that time. Colon cancer was subsequently diagnosed as above, by the relatively recent 01/22/18: EGD/baseline colonoscopy. 01/23/18: IVC filter placed. However, although this will potentially prevent further clots from going to the lungs, the large B/L PE preceded this & ideally, Heme Onc wanted A/C tx continued for 3 months, if possible. Additionally, the patient was just readmitted 02/12/18 for embolic ischemic strokes, again presumably hypercoagulable, on the basis of metastatic colon CA & had a mild troponin bump, felt to be from demand ischemia. 02/13/18: Echo- normal LVEF without wall motion abnormalities, thrombus, PFO or ASD. The patient has not yet had a Port-A-Cath placed to start CTX, due to his other numerous issues. His abdominal wounds were still healing. *I had a long discussion with the patient's , Rowena Salter, on at 11:20 PM, at cell: [phone], regarding the above. She is aware of the fact that her is stuck in a precarious position. He is at risk for further thrombotic/embolic events off of A/C therapy, but on the other hand, he has subacute on chronic anemia, and was bleeding on the Xarelto. The patient could be oozing from his recent 01/24/18: ileocolonic anastomosis. The colonic mucosa was recently cleared, as above. There is a possibility, albeit less likely, that he was having a slow diverticular bleed. The above clinically did not appear to be a rapid transit UGI bleed, and he recently had an EGD, as well. *Furthermore, at the moment, I would not advocate a repeat colonoscopy, as his recent wounds and anastomosis could dehisce. Additionally, I would be leery of performing a colonoscopy on a patient post recent CVA. The patient and his were okay with holding the Xarelto at present. *SUGGEST: Change diet to clears po, with aspiration precautions. T&C 2u PRBC. Keep Hgb > 8 (probable underlying ASHD). 2 large bore IV. Check CBC Q12h for now. Supplemental O2 as needed. May continue ASA 81 mg daily, but switch to enteric coated form- Ecotrin 81 mg daily). *Empirically add prophylactic PPI daily. * Carefully hold Xarelto, for now. *Advise following up with numerous disciplines (including oncology, neurology, cardiology, vascular, etc.), to get a general consensus regarding the overall risk:benefit ratio, of if or when to resume A/C therapy. *If active rebleed of any hemodynamic significance, call GI & get *CTA abdomen. DVT prophylaxis with mechanical ALPS. Continue OT/PT. Eventual bone scan per oncology. Pathology is still pending, regarding KRAS and BRAF status. Eventual Port-A-Cath placement for initiation of CTX (as patient allows), once patient hopefully stabilizes. Treatment of depression, which is understandable. *Code status needs to be readdressed, especially if patient refuses therapy. The case was discussed with the medical house staff earlier this evening, & briefly witrh Dr. Fortune, although he was not officially flowers salesperson. I will speak with oncology again tomorrow. *Further GI recommendations to follow, depending on clinical course. Problem List: 1. Adenocarcinoma of colon metastatic to liver 2. Gastrointestinal bleeding 3. Anemia 4. Diverticulosis of colon 5. Pulmonary emboli 6. DVT (deep venous thrombosis) 7. Elevated troponin 8. Demand ischemia 9. CVA (cerebral vascular accident) 10. Expressive aphasia 11. Family history of colon cancer Copies To: Adams CORTES,Hema; Doroteo CORTES,Evan Payne; Shaq CORTES,Fanny; Devika CORTES,On License Of [facility]; Kaylyn CORTES,Roel N.; Charlie CORTES,Ramesh; Rylee CORTES PHD,[facility] [employer]; Papito CORTES, Yolande Alberto. Consult Acknowledgment - Thank you for your consult request.
[2018-02-17 06:33] VITALS: BP 120/60
--- NOTE | 2018-02-17 07:14 | PN- Oncology ---
Subjective Subjective: He was noted to have a GI bleeding over the weekend. Hemoglobin decreased to 7.2 from 8.2. He was given 1 unit pRBC. GI was consulted. Rivaroxaban was held. This morning he continues to be agitated. He is irritable and unable to answer many questions. He denies any pain. He states "who knows" when asked if he had bleeding or pain. Review of Systems: Limited due to mental status. Review of Systems Constitutional: Denies: chills, fever. Gastrointestinal: Reports: abdominal pain, bloody stool. Hematologic/Endocrine: Denies: bruising, bleeding. All Other Systems: Reviewed and Negative Objective Vital Signs and I&Os Vital Signs Date Time Temp Pulse Resp B/P B/P Pulse O2 O2 Flow FiO2 Mean Ox Delivery Rate 02/17 0633 98.2 85 20 120/60 96 Room Air 02/17 0000 Room Air 02/16 2248 96.9 80 20 118/58 97 Room Air 02/16 1425 98.2 93 18 124/82 97 Room Air Intake & Output 02/17 0800 02/17 0000 02/16 1600 02/16 0800 02/16 0000 02/15 1600 Intake Total 240 220 400 110 350 420 Output Total 500 300 350 Balance -260 220 400 110 50 70 Intake, IV 20 10 Intake, Oral 240 200 400 100 350 420 Number 1 Bowel Movements Output, Urine 500 300 350 Patient 95.056 kg 91.2 kg Weight Weight Bed scale Bed scale Measurement Method Physical Exam: General Appearance: well developed/nourished, alert, awake, anxious, moderate distress, irritable, disoriented. Respiratory: normal breath sounds, chest non-tender, no respiratory distress Cardiovascular: regular rate/rhythm Abdomen: normal bowel sounds, soft, non-tender, midline incision intact, mild drainage Extremities: normal inspection Neurologic/Psychiatric: awake, alert, oriented x 3, apraxia, dysarthria, irritable, agitated Current Medications: Current Medications Sig/Natalee Start time Last Medication Dose Route Stop Time Status Admin Alprazolam 0.25 MG DAILY 02/13 1000 AC 02/16 PO 02/20 0959 0821 Amlodipine Besylate 5 MG DAILY 02/12 1000 AC 02/16 PO 0821 Aspirin 81 MG DAILY 02/12 0300 DC 02/16 PO 0820 Aspirin Buffered 81 MG DAILY 02/17 1000 AC PO Atorvastatin Calcium 40 MG 1700 02/12 0300 AC 02/16 PO 1733 Cyclobenzaprine HCl 10 MG TID PRN 02/12 1545 AC 02/16 PO 0821 Docusate Sodium 100 MG DAILY NEEDED PRN 02/13 191 AC PO Lidocaine 1 PAT DAILY 02/13 1000 AC 02/16 EXT 0829 Losartan Potassium 100 MG DAILY 02/12 1000 AC 02/16 PO 0821 Morphine Sulfate 2 MG Q6-PRN PRN 02/12 1745 AC 02/16 IV 1738 Nitroglycerin 0.5 GM Q6 02/13 1200 AC 02/16 TOP 1732 Omeprazole 40 MG DAILY AC 02/17 0045 AC PO Oxycodone/ 1 TAB Q4P PRN 02/12 1745 AC 02/16 Acetaminophen PO 2141 Ramelteon 8 MG .STK-MED ONE 02/16 2139 DC PO 02/16 2140 Ramelteon 8 MG AT BEDTIME NEED.. 02/14 211 AC 02/16 PO 2141 Rivaroxaban 15 MG BID 02/12 1000 DC 02/16 PO 0821 Senna 187 MG AT BEDTIME PRN 02/13 1915 AC 02/14 PO 0746 Senna/Docusate Sodium 2 TAB QPM 02/15 2200 AC 02/16 PO 2137 Simethicone 80 MG Q4P PRN 02/15 0300 AC 02/15 PO 0335 Zolpidem Tartrate 10 MG AT BEDTIME PRN 02/16 2345 AC 02/16 PO 2359 Zolpidem Tartrate 10 MG AT BEDTIME PRN 02/14 2130 DC 02/15 PO 2351 Results Last 24 Hours of Lab Results: Laboratory Tests 02/17 02/16 0624 1844 Chemistry Sodium Pending Potassium Pending Chloride Pending Carbon Dioxide Pending Anion Gap Pending BUN Pending Creatinine Pending BUN/Creatinine Ratio Pending Hematology CBC w Diff Pending NO MAN DIFF REQ WBC (4.8 - 10.8 /CUMM) Pending 9.1 RBC (4.70 - 6.10 /CUMM) Pending 2.80 L Hgb (14.0 - 18.0 G/DL) Pending 7.2 *L Hct (42 - 52 %) Pending 22.3 L MCV (80.0 - 94.0 FL) Pending 79.9 L MCH (27.0 - 31.0 PG) Pending 25.7 L MCHC (33.0 - 37.0 G/DL) Pending 32.1 L RDW (11.5 - 14.5 %) Pending 15.9 H Plt Count (130 - 400 /CUMM) Pending 394 MPV (7.4 - 10.4 FL) Pending 8.6 Gran % (42.2 - 75.2 %) 79.7 H Lymphocytes % (20.5 - 51.1 %) 9.3 L Monocytes % (1.7 - 9.3 %) 6.5 Eosinophils % (0 - 5 %) 3.8 Basophils % (0.0 - 2.0 %) 0.7 Absolute Granulocytes (1.4 - 6.5 /CUMM) 7.3 H Absolute Lymphocytes (1.2 - 3.4 /CUMM) 0.9 L Absolute Monocytes (0.10 - 0.60 /CUMM) 0.6 Absolute Eosinophils (0.0 - 0.7 /CUMM) 0.3 Absolute Basophils (0.0 - 0.2 /CUMM) 0.1 Assessment/Plan Assessment/Recommendations: Mr. Salter is a 67-year-old male with HTN, HLD, EtOH pancreatitis, OA, DVT/PE s /p IVC filter and currently on rivaroxaban, and stage IV adenocarcinoma of the colon with metastases to the liver s/p right hemicolectomy who presented with word finding difficulty, slurred speech, and right sided weakness. CT head without contrast and CTA head were done and was unremarkable. He has no obvious metastatic disease or ICH. MRI brain is demonstrated multiple areas of restricted diffusion in the cerebellar hemispheres and in the bilateral frontoparietal regions. These were consistent with infarction. MRI lumbar demonstrated no evidence of metastatic disease. He has no evidence of hemorrhagic transformation. Neurology is following. Over the weekend, he had an episode of GI bleeding (unwitnessed). His hemoglobin decreased from 8.2 to 7.2. He was taken of rivaroxaban. Aspirin was continued. GI was consulted. It is reasonable to keep him off rivaroxaban for now. He should be observed for worsening bleeding. If stable, he may go back on anticoagulation. One option would be enoxaparin for a more short acting anticoagulant. If stable, he may be switched back to rivaroxaban. With his metastatic colon cancer, he will eventually need port placed and have chemotherapy started. Hopefully, this will occur in the next few weeks once he is stable. Pathology is still pending KRAS and BRAF status. He should be continued on rivaroxaban for his PE/DVT. ?GI Bleeding: -hold anticoagulation at the moment -if no bleeding >24 hours, consider restarting with enoxaparin 1 mg/kg q12 hour -once stable, can restart rivaroxaban CVA: -neurology following -continue ASA -STR Metastatic colon cancer: -bone scan to evaluate for metastatic disease -need for port placement -outpatient chemotherapy 4-6 weeks after surgery -follow up pathology for KRAS/BRAF status DVT/PE: -hold anticoagulation for now, given GI bleeding and anemia -consider enoxaparin if no bleeding Please call [phone] with any questions or concerns. Problem List: 1. Anemia 2. Expressive aphasia 3. CVA (cerebral vascular accident) 4. Adenocarcinoma of colon metastatic to liver 5. Gastrointestinal bleeding 6. DVT (deep venous thrombosis) 7. Pulmonary emboli
--- NOTE | 2018-02-17 07:28 | PN- Housestaff ---
Subjective Follow-up For: 1. Expressive aphasia with RUE weakness 2. Acute ischemic stroke vs brain mets 3. Metastatic colonic adenocarcinoma s/p hemicolectomy 4. Elevated troponin likely demand ischemia 5. Bilateral DVT and PE s/p IVC filter on xarelto 6. Chronic blood loss anemia from colon cancer 7. New onset GI bleed 02/16 Tele-Events Since Last Visit: Off tele Subjective: Patient had an episode of GI bleed overnight and s/p 1U transfusion. This morning patient was lying on bed without specific complaint, however appeared to be frustrated and did not wish to talk much. Review of Systems Constitutional: Reports: see HPI. Objective Last 24 Hrs of Vital Signs/I&O Vital Signs Date Time Temp Pulse Resp B/P B/P Pulse O2 O2 Flow FiO2 Mean Ox Delivery Rate 02/17 0905 85 120/60 02/17 0904 85 120/60 02/17 0633 98.2 85 20 120/60 96 Room Air 02/17 0000 Room Air 02/16 2248 96.9 80 20 118/58 97 Room Air 02/16 1425 98.2 93 18 124/82 97 Room Air Intake & Output 02/17 1600 02/17 0800 02/17 0000 Intake Total 240 220 Output Total 500 Balance -260 220 Intake, IV 20 Intake, Oral 240 200 Number 1 Bowel Movements Output, Urine 500 Patient 95.056 kg Weight Weight Bed scale Measurement Method Physical Exam General Appearance: Alert, Oriented X3, No Acute Distress Cardiovascular: Regular Rate, Normal S1 Lungs: Clear to Auscultation, Normal Air Movement Abdomen: Surgical dressing on, without much serous discharge. Extremities: No Edema Current Medications: Current Medications Sig/Natalee Start time Last Medication Dose Route Stop Time Status Admin Alprazolam 0.25 MG DAILY 02/13 1000 AC 02/17 PO 02/20 0959 0901 Amlodipine Besylate 5 MG DAILY 02/12 1000 AC 02/17 PO 0905 Aspirin 81 MG DAILY 02/12 0300 DC 02/16 PO 0820 Aspirin Buffered 81 MG DAILY 02/17 1000 AC 02/17 PO 0906 Atorvastatin Calcium 40 MG 1700 02/12 0300 AC 02/16 PO 1733 Cyclobenzaprine HCl 10 MG TID PRN 02/12 1545 AC 02/16 PO 0821 Docusate Sodium 100 MG DAILY NEEDED PRN 02/13 1915 AC PO Lidocaine 1 PAT DAILY 02/13 1000 AC 02/17 EXT 0905 Losartan Potassium 100 MG DAILY 02/12 1000 AC 02/17 PO 0904 Morphine Sulfate 2 MG Q6-PRN PRN 02/12 1745 AC 02/17 IV 0901 Nitroglycerin 0.5 GM Q6 02/13 1200 AC 02/16 TOP 1732 Omeprazole 40 MG DAILY AC 02/17 0045 AC PO Oxycodone/ 1 TAB Q4P PRN 02/12 1745 AC 02/16 Acetaminophen PO 214 Ramelteon 8 MG .STK-MED ONE 02/16 2139 DC PO 02/16 2140 Ramelteon 8 MG AT BEDTIME NEED.. 02/14 2115 AC 02/16 PO 2141 Rivaroxaban 15 MG BID 02/12 1000 DC 02/16 PO 0821 Senna 187 MG AT BEDTIME PRN 02/13 1915 AC 02/14 PO 0746 Senna/Docusate Sodium 2 TAB QPM 02/15 2200 AC 02/16 PO 2137 Simethicone 80 MG Q4P PRN 02/15 0300 AC 02/15 PO 0335 Zolpidem Tartrate 10 MG .STK-MED ONE 02/16 2358 DC PO 02/16 2359 Zolpidem Tartrate 10 MG AT BEDTIME PRN 02/16 2345 AC 02/16 PO 2359 Last 24 Hrs of Lab/[place] Results Last 24 Hrs of Labs/Mics: Laboratory Tests 02/17/18 0937: Anion Gap 12, Estimated GFR > 60, BUN/Creatinine Ratio 27.5 H 02/17/18 0624: CBC w Diff NO MAN DIFF REQ, RBC 3.02 L, MCV 80.3, MCH 26.3 L, MCHC 32.8 L, RDW 15.3 H, MPV 8.5, Gran % 72.5, Lymphocytes % 11.5 L, Monocytes % 8.4, Eosinophils % 7.0 H, Basophils % 0.6, Absolute Granulocytes 7.7 H, Absolute Lymphocytes 1.2, Absolute Monocytes 0.9 H, Absolute Eosinophils 0.7, Absolute Basophils 0.1 02/16/18 1844: CBC w Diff NO MAN DIFF REQ, RBC 2.80 L, MCV 79.9 L, MCH 25.7 L, MCHC 32.1 L, RDW 15.9 H, MPV 8.6, Gran % 79.7 H, Lymphocytes % 9.3 L, Monocytes % 6.5, Eosinophils % 3.8, Basophils % 0.7, Absolute Granulocytes 7.3 H, Absolute Lymphocytes 0.9 L, Absolute Monocytes 0.6, Absolute Eosinophils 0.3, Absolute Basophils 0.1 Assessment/Plan Assessment: 67-year-old unfortunate male with past medical history significant for hypertension, hyperlipidemia, alcohol induced pancreatitis, osteoarthritis, bilateral lower extremity DVT, bilateral unprovoked pulmonary embolism on Xarelto 15 twice daily, colon cancer status post resection presented to the emergency department with chief complaint of change in speech since 02/11/2018 8 AM, and RUE stiffness found to have a CVA. P: #?bloody BM H/H dropped 8.2 -> 7.2 -> 7.9 on latest lab s/p 1U pRBC. Will continue monitor this PM and in the AM. - If stable, will restart Enoxaprin 1mg/kg q12 per Oncology recommendation. -guaiac all stools -Pending GI consult #CVA: MRI Head: 1. There are multiple areas of restricted diffusion in the cerebellar hemispheres in the bilateral frontoparietal regions, most extensive on the right superiorly, consistent with areas of infarction. There is no evidenceof hemorrhagic transformation. 2. There is diffuse volume loss and there are chronic microvascular ischemicchanges. MRI Spine: 1. Markedly suboptimal study, and only motion degraded sagittal images were obtained. 2. There is spondylosis at L2-L3, L4-L5 and L5-S1 as described above. Theredoes not appear to be central stenosis. * Continue neuro checks and fall precautions * Continue aspirin and Lipitor * Recent echo in December 2017 showed ejection fraction 55% with impaired left ventricular relaxation * Cardio consult recommended adding NG ointment 0.5gm q6. * Continue cardiology neurology recommendations * PTOT recommended STR, pending bed placement. * Speech and swallow recommended Puree/thin liquid * HbA1c 5.1 and lipid panel (WNL) #Elevated troponin, demand ischemia Troponins 0.42, 0.26, 0.32 Echocardiogram: 1. Limited study due to patient agitation. 2. Normal EF of 55% . * Continue cardiology recommendations * Continue aspirin and Lipitor as above #Stage IV colon cancer with liver metastasis: During his last admission, Endoscopy revealed submucosal nodule second portion of the duodenum, scattered gastric erosions with no stigmata of bleeding, and non-obstructing schtazki's ring. Colonoscopy revealed an ileocecal valve mass which pathology subsequently showed to be invasive moderately to poorly differentiated adenocarcinoma. Oncology was consulted and recommended CT abdomen/pelvis that revealed metastatic disease with large mesenteric lymph nodes, retroperitoneal and upper abdominal lymph nodes, and suspected hepatic metastases with no evidence of bowel obstruction. Underwent hemicolectomy and he has been following up with oncologist as an outpatient to start chemotherapy. #Bilateral Lower Extremity DVTs and Bilateral PE s/p IVC Filter placement: Patient was recently admitted for bilateral lower extremity DVTs and PE. Because he needed to have a hemicolectomy, an IVC filter was placed by vascular surgery. * original plan was xaralto 15 mg twice daily for 1 more week and then start 20 mg daily, however now on hold as above due to GI pleed. #Hypertension * Continue amlodipine and losartan #Chronic back pain * Continue pain control #full code #DVT prophylaxis none 2/2 GI bleed Problem List: 1. Anemia 2. Expressive aphasia Pain Ratin Pain Location: see AP Pain Goal: Remain pain free Pain Plan: see AP Tomorrow's Labs & Rationales: CBC/BEP
[2018-02-17 09:57] LABS: ABSOLUTE BASOPHIL COUNT 0.1 /CUMM (0.0-0.2); ABSOLUTE EOSINOPHIL COUNT 0.7 /CUMM (0.0-0.7); ABSOLUTE GRANULOCYTE CT 7.7 /CUMM (1.4-6.5); ABSOLUTE LYMPH COUNT 1.2 /CUMM (1.2-3.4); ABSOLUTE MONOCYTE COUNT 0.9 /CUMM (0.10-0.60); BASOPHIL % 0.6 % (0.0-2.0); GRANULOCYTE % 72.5 % (42.2-75.2); HEMATOCRIT 24.3 % (42-52); MEAN CORPUSCULAR HGB 26.3 PG (27.0-31.0); MEAN CORPUSCULAR HGB CONC 32.8 G/DL (33.0-37.0); MEAN CORPUSCULAR VOLUME 80.3 FL (80.0-94.0); MEAN PLATELET VOLUME 8.5 FL (7.4-10.4); PLATELET COUNT 360 /CUMM (130-400); RBC DISTRIBUTION WIDTH 15.3 % (11.5-14.5); RED BLOOD CELL CT 3.02 /CUMM (4.70-6.10); WHITE BLOOD CELL COUNT 10.7 /CUMM (4.8-10.8)
--- NOTE | 2018-02-17 11:55 | PN- Att Addend ---
Attending Addendum Attending Brief Note Patient seen and examined. Plan of care discussed with the medical team and the patient. Available lab work and radiology test reports were reviewed. Patient had an acute lower GI bleed yesterday. He was given 1 unit of blood transfusion and his a Xarelto was held. Patient's found to be lying in bed with his clothes off. Patient has a sitter. As per sitter patient has been confused and agitated at times. Patient denies any recent fever or chest pain difficulty breathing. He does not report any abdominal pain and nausea vomiting. Exam: General: Patient awake but appears lethargic and irritable- patient suddenly pushed his table away; he appears pale; patient lying in bed with only underwear on CVS: S1 plus S2 without any murmur or gallops Chest: Few scattered crepitation without any wheeze. There is no respiratory distress. Abdomen: Soft non-tender, bowel sound present, no guarding or rebound [employer]: Residual right-sided weaknessl appears lethargic but follows commands appropriately Extremities: No edema; no clubbing or cyanosis noted Assessment * CVA * Elevated troponin * ? delirium * hypertension, * hyperlipidemia, * History of alcohol induced pancreatitis, * osteoarthritis, * bilateral lower extremity DVT, bilateral unprovoked pulmonary embolism on Xarelto * Stage IV adenocarcinoma of colon with liver metastases- waiting for port insertion as out pt * Possible depression * Lower GI bleed- likely contributed by adenocarcinoma of colon and being on Xeralto Plan * Continue aspirin and Lipitor and other medications * Continue to hold Xeralto * Recheck CBC tomorrow * Await GI consult * As per hematology no if no further bleeding is noted issue and can resume Lovenox in next 24 hours * Await short-term rehabilitation placement when mental status stable and GI workup has been completed * Continue PT/OT * Consider psychiatry evaluation for depression Current Medications Sig/Natalee Start time Last Medication Dose Route Stop Time Status Admin Alprazolam 0.25 MG DAILY 02/13 1000 AC 02/17 PO 02/20 0959 0901 Amlodipine Besylate 5 MG DAILY 02/12 1000 AC 02/17 PO 0905 Aspirin 81 MG DAILY 02/12 0300 DC 02/16 PO 0820 Aspirin Buffered 81 MG DAILY 02/17 1000 AC 02/17 PO 0906 Atorvastatin Calcium 40 MG 1700 02/12 0300 AC 02/16 PO 1733 Cyclobenzaprine HCl 10 MG TID PRN 02/12 1545 AC 02/16 PO 0821 Docusate Sodium 100 MG DAILY NEEDED PRN 02/13 1915 AC PO Lidocaine 1 PAT DAILY 02/13 1000 AC 02/17 EXT 0905 Losartan Potassium 100 MG DAILY 02/12 1000 AC 02/17 PO 0904 Morphine Sulfate 2 MG Q6-PRN PRN 02/12 1745 AC 02/17 IV 0901 Nitroglycerin 0.5 GM Q6 02/13 1200 AC 02/16 TOP 1732 Omeprazole 40 MG DAILY AC 02/17 0045 AC PO Oxycodone/ 1 TAB Q4P PRN 02/12 1745 AC 02/16 Acetaminophen PO 2141 Ramelteon 8 MG .STK-MED ONE 02/16 2139 DC PO 02/16 2140 Ramelteon 8 MG AT BEDTIME NEED.. 02/14 2115 AC 02/16 PO 2141 Rivaroxaban 15 MG BID 02/12 1000 DC 02/16 PO 0821 Senna 187 MG AT BEDTIME PRN 02/13 1915 AC 02/14 PO 0746 Senna/Docusate Sodium 2 TAB QPM 02/15 2200 AC 02/16 PO 2137 Simethicone 80 MG Q4P PRN 02/15 0300 AC 02/15 PO 0335 Zolpidem Tartrate 10 MG .STK-MED ONE 02/16 2358 DC PO 02/16 2359 Zolpidem Tartrate 10 MG AT BEDTIME PRN 02/16 2345 AC 02/16 PO 2359 Laboratory Tests 02/17/18 0937: Anion Gap 12, Estimated GFR > 60, BUN/Creatinine Ratio 27.5 H 02/17/18 0624: CBC w Diff NO MAN DIFF REQ, RBC 3.02 L, MCV 80.3, MCH 26.3 L, MCHC 32.8 L, RDW 15.3 H, MPV 8.5, Gran % 72.5, Lymphocytes % 11.5 L, Monocytes % 8.4, Eosinophils % 7.0 H, Basophils % 0.6, Absolute Granulocytes 7.7 H, Absolute Lymphocytes 1.2, Absolute Monocytes 0.9 H, Absolute Eosinophils 0.7, Absolute Basophils 0.1 02/16/18 1844: CBC w Diff NO MAN DIFF REQ, RBC 2.80 L, MCV 79.9 L, MCH 25.7 L, MCHC 32.1 L, RDW 15.9 H, MPV 8.6, Gran % 79.7 H, Lymphocytes % 9.3 L, Monocytes % 6.5, Eosinophils % 3.8, Basophils % 0.7, Absolute Granulocytes 7.3 H, Absolute Lymphocytes 0.9 L, Absolute Monocytes 0.6, Absolute Eosinophils 0.3, Absolute Basophils 0.1 Vital Signs Date Time Temp Pulse Resp B/P B/P Pulse O2 O2 Flow FiO2 Mean Ox Delivery Rate 02/17 0905 85 120/60 02/17 0904 85 120/60 02/17 0633 98.2 85 20 120/60 96 Room Air 02/17 0000 Room Air 02/16 2248 96.9 80 20 118/58 97 Room Air 02/16 1425 98.2 93 18 124/82 97 Room Air Intake & Output 02/17 1600 02/17 0800 02/17 0000 Intake Total 240 220 Output Total 500 Balance -260 220 Intake, IV 20 Intake, Oral 240 200 Number 1 Bowel Movements Output, Urine 500 Patient 210 lb Weight Weight Bed scale Measurement Method
--- NOTE | 2018-02-17 13:46 | Cons- Psychiatry ---
Psychiatric Consult Date of Consult: 02/17/18 Reason for Consult: "Depression/anxiety, recently diagnosed colon cancer, now admitted with stroke ( aphasia)" History of Present Illness: The patient was brought in by ambulance from home on 02/11/2018 at 2131 the chief complaint of right side deficit and difficulty speaking since the morning. 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 Electrolytes within normal limits on 02/12/2018. Elevated troponin I noted on that day 0.36. TSH 1.06/FT4 1.67, both within normal limits. WBC on that date was 12.6, which has resolved to 9.1 as of 02/16/2018. Most recent absolute granulocyte count 7.3 As of 02/17/2018, vitamin B12 and folic acid are pending. Allergies: Coded Allergies: No Known Allergies (09/13/17) Current Medications: Current Medications Sig/Natalee Start time Last Medication Dose Route Stop Time Status Admin Alprazolam 0.25 MG DAILY 02/13 1000 AC 02/17 PO 02/20 0959 0901 Amlodipine Besylate 5 MG DAILY 02/12 1000 AC 02/17 PO 0905 Aspirin 81 MG DAILY 02/12 0300 DC 02/16 PO 0820 Aspirin Buffered 81 MG DAILY 02/17 1000 AC 02/17 PO 0906 Atorvastatin Calcium 40 MG 1700 02/12 0300 AC 02/16 PO 1733 Cyclobenzaprine HCl 10 MG TID PRN 02/12 1545 AC 02/16 PO 0821 Docusate Sodium 100 MG DAILY NEEDED PRN 02/13 1915 AC PO Lidocaine 1 PAT DAILY 02/13 1000 AC 02/17 EXT 0905 Losartan Potassium 100 MG DAILY 02/12 1000 AC 02/17 PO 0904 Morphine Sulfate 2 MG Q6-PRN PRN 02/12 1745 AC 02/17 IV 0901 Nitroglycerin 0.5 GM Q6 02/13 1200 AC 02/17 TOP 1217 Omeprazole 40 MG DAILY AC 02/17 0045 AC PO Oxycodone/ 1 TAB Q4P PRN 02/12 1745 AC 02/17 Acetaminophen PO 1220 Ramelteon 8 MG .STK-MED ONE 02/16 2139 DC PO 02/16 2140 Ramelteon 8 MG AT BEDTIME NEED.. 02/14 211 AC 02/16 PO 2141 Rivaroxaban 15 MG BID 02/12 1000 DC 02/16 PO 0821 Senna 187 MG AT BEDTIME PRN 02/13 1915 AC 02/14 PO 0746 Senna/Docusate Sodium 2 TAB QPM 02/15 2200 AC 02/16 PO 2137 Simethicone 80 MG Q4P PRN 02/15 0300 AC 02/15 PO 0335 Zolpidem Tartrate 10 MG .STK-MED ONE 02/16 2358 DC PO 02/16 235 Zolpidem Tartrate 10 MG AT BEDTIME PRN 02/16 2345 AC 02/16 PO 235 Past History Past Medical History Neurological: NONE (02/12/18), CVA EENT: NONE Cardiovascular: hypertension, hyperlipidemia Respiratory: NONE Gastrointestinal: pancreatitis (ex-smoker/ex-EtOH) Hepatic: NONE Renal: NONE Musculoskeletal: osteoarthritis, rotator cuff injury Psychiatric: depression (post CVA) Endocrine: NONE Blood Disorders: DVT (01/15/18: B/L LE; has IVC filt), PE (01/15/18: large B/L PE-Xarelto) Cancer(s): colon/rectal cancer COUNTER INTELLIGENCE/Reproductive: NONE Past Surgical History Surgical History: colon resection (01/24/18: extended right thomas), B/L rotator cuff repair Psychosocial History Strengths/Capabilities: Motivated for treatment, supportive spouse. Physical Limitations (Interventions): Right side deficits, dysarthria (Improving) Psychiatric Treatment History Psych Treatment Psychiatric Treatment No (denies) Diagnosis: F32.9 Major depressive disorder, unspecified r/o Adjustment disorder, unspecified Risk Factors: chronic/serious med cond., male Substance Use/Abuse History Drug Use/Abuse Substances Used/Abused Yes Substance Used/Abused Alcohol First Use not evaluated Last Used unknown How much used/taken per his spouse, a few beers occasionally at his social club How often occasionally Substance Abuse Treatment Substance Abuse Treatment Past Substance Abuse [place] No Comments: The patient does not drink at home Assessment/Plan Mental Status Orientation: person, place, month, year, but off by 2 days (.) Affect: Depressed, Hopeless, Sad Speech: Poverty (dysarthria status post CVA) Neuro-vegetative: Anhedonia, Helpless, Sleep Disturbance Mental Status Exam: The patient is lying on his side in his bed, making occasional eye contact. His affect is sad and depressed. He is alert and oriented, except off by 3 days. He endorses helplessness hopelessness worthlessness, but denies feelings of guilt. He denies current suicidal or homicidal ideation, and denies any history of suicide attempts. He reports that he sometimes has passive suicidal ideation. He denies use of alcohol or drugs, including cannabis. He does not smoke, having quit many years ago. He denies any family psychiatric history. He lives at home with his spouse, Rowena Peoples in [place]. Lab Results: Laboratory Tests 02/17 02/17 0937 0624 Chemistry Sodium (137 - 145 mmol/L) 138 Potassium (3.5 - 5.1 mmol/L) 3.9 Chloride (98 - 107 mmol/L) 101 Carbon Dioxide (22 - 30 mmol/L) 26 Anion Gap (5 - 16) 12 BUN (9 - 20 mg/dL) 22 H Creatinine (0.7 - 1.2 mg/dL) 0.8 Estimated GFR (>60 ml/min) > 60 BUN/Creatinine Ratio (7 - 25 %) 27.5 H Vitamin B12 (239 - 931 pg/mL) Pending Folate (2.76 - 20.0 ng/mL) Pending Hematology CBC w Diff NO MAN DIFF REQ WBC (4.8 - 10.8 /CUMM) 10.7 RBC (4.70 - 6.10 /CUMM) 3.02 L Hgb (14.0 - 18.0 G/DL) 7.9 L Hct (42 - 52 %) 24.3 L MCV (80.0 - 94.0 FL) 80.3 MCH (27.0 - 31.0 PG) 26.3 L MCHC (33.0 - 37.0 G/DL) 32.8 L RDW (11.5 - 14.5 %) 15.3 H Plt Count (130 - 400 /CUMM) 360 MPV (7.4 - 10.4 FL) 8.5 Gran % (42.2 - 75.2 %) 72.5 Lymphocytes % (20.5 - 51.1 %) 11.5 L Monocytes % (1.7 - 9.3 %) 8.4 Eosinophils % (0 - 5 %) 7.0 H Basophils % (0.0 - 2.0 %) 0.6 Absolute Granulocytes (1.4 - 6.5 /CUMM) 7.7 H Absolute Lymphocytes (1.2 - 3.4 /CUMM) 1.2 Absolute Monocytes (0.10 - 0.60 /CUMM) 0.9 H Absolute Eosinophils (0.0 - 0.7 /CUMM) 0.7 Absolute Basophils (0.0 - 0.2 /CUMM) 0.1 02/17 1844 Hematology CBC w Diff NO MAN DIFF REQ WBC (4.8 - 10.8 /CUMM) 9.1 RBC (4.70 - 6.10 /CUMM) 2.80 L Hgb (14.0 - 18.0 G/DL) 7.2 *L Hct (42 - 52 %) 22.3 L MCV (80.0 - 94.0 FL) 79.9 L MCH (27.0 - 31.0 PG) 25.7 L MCHC (33.0 - 37.0 G/DL) 32.1 L RDW (11.5 - 14.5 %) 15.9 H Plt Count (130 - 400 /CUMM) 394 MPV (7.4 - 10.4 FL) 8.6 Gran % (42.2 - 75.2 %) 79.7 H Lymphocytes % (20.5 - 51.1 %) 9.3 L Monocytes % (1.7 - 9.3 %) 6.5 Eosinophils % (0 - 5 %) 3.8 Basophils % (0.0 - 2.0 %) 0.7 Absolute Granulocytes (1.4 - 6.5 /CUMM) 7.3 H Absolute Lymphocytes (1.2 - 3.4 /CUMM) 0.9 L Absolute Monocytes (0.10 - 0.60 /CUMM) 0.6 Absolute Eosinophils (0.0 - 0.7 /CUMM) 0.3 Absolute Basophils (0.0 - 0.2 /CUMM) 0.1 Diffential Diagnosis: F32.9 major depressive disorder, unspecified Rule out adjustment disorder Impression: The patient gave verbal permission for me to speak with his spouse, Rowena Conley. She reports that his current trouble began with blood clots in his legs and lungs, he had difficulty breathing. He has had an IVC trap placed and has been on a blood thinner. Since the new year, the patient has been diagnosed with colon cancer, and has had surgery, from which he is recovering. She hasn't noticed a change in his mood for approximately one month, which predates his surgery. He had been complaining about insomnia at night secondary to back pain since November. She believes that the plan is to receive a port for chemotherapy after his surgery has healed for several more weeks. The patient has had a GI bleed yesterday. The plan is for the patient to go to acute rehabilitation before his stroke. In addition to poor sleep, she reports that he has not been eating, due to the pured food, a precaution after his stroke. She believes that his appetite would return if he can eat normally. Provisional Treatment Plan: 1. I have ordered Ativan on labs for vitamin B12 and folic acid, both of which may contribute to low mood. 2. After discussion with the medical team, I will start escitalopram 5 mg by mouth daily for depression and anxiety. Risks, benefits and side effects were reviewed with the patient. 3. When the patient is transferred to a short-term rehabilitation, please ask for psychiatric consult, to monitor and consider titration of the escitalopram 5 mg, a new med today. 4. Monitor for hyponatremia and QTC prolongation, two possible side effects of escitalopram. 5. Please ask the receiving facility to call and make an appointment for the patient at [facility] outpatient psychiatry when his discharge date is known: [phone]. [address] [place], [place]. The patient will need ongoing medication management for escitalopram, or other psychotropic medications that may be added later. We would especially like the patient to receive talk therapy in addition to medication following. 6. Please discontinue alprazolam, as this can cause or exacerbate delirium in the elderly. 7. Continue ramelteon for insomnia. 8. Please discontinue zolpidem, which impacts the same JIGAR receptors as benzodiazepines. Instead, if ramelteon is not sufficient, consider hydroxyzine 25-50 mg by mouth at bedtime, or trazodone 50 mg at bedtime as needed for insomnia as needed for insomnia. We will continue to follow along with you. Thank you for this consult
[2018-02-17 14:00] VITALS: BP 108/60
--- NOTE | 2018-02-17 16:46 | PN- Gastroenterology ---
Assessment/Plan GI Assessment/Recommendations: Unfortunate 67 y/o male, HTN, HLD, hx EtOH pancreatitis, ex-smoker, DJD, post recent 01/15/18: B/L LE infrapopliteal DVT & large B/L PE (verified by B/L LE doppler & CTA chest ; d-Dimer [id number] then)-> placed on Xarelto. 01/17/18: elevated CEA 64.8, nl AFP 2.2.The patient subsequently had 01/22/18: EGD to D3/baseline colonoscopy per Dr. New (for anemia, GI bleeding, NSAID use, elevated CEA, & hypercoaguable state)- gastric erosions with antral bxs HP-neg, submucosal nodule D2- bxs nl duodenal mucosa & submucosa, nonobstructing Schatzki ring with Z line at 43 cm; large fungating mass at ICV- SPOT tattoo/bxs moderate to poorly differentiated adeno CA, no abnormal loss of DNA mismatch repair, 1 cm right colon lipoma, & mixed grade 2 hemorrhoids. There was no mention of diverticula on the colonoscopy report, however preoperative CT showed moderate sigmoid diverticula & suggestion of liver metastases. The colon lesion on CT appeared to be at the hepatic flexure. 01/23/18: *IVC filter placed, as patient was at risk for GI bleeding. Having stated that, the patient obviously was hypercoagulable from underlying malignancy & A/C tx was advised for 3 months, per Heme/Onc, based on the large B/L PE (which existed prior to the IVC filter) & B/L LE DVT. 01/24/18: Extended right hemicolectomy, removal of 5 cm TI, & open wedge bx of liver mass, per Dr. Patiño- Colon pathology- poorly differentiated adeno CA extending into pericolonic adipose tissue, 2 of 13 nodes positive, no loss of DNA mismatch repair, submucosal lipoma; liver bx- met colon Ca (*consistent with Stage 4/Asher D colon Ca). The patient had not yet had a Port-A-Cath placed for CTX, which had not yet been started. He is a full code. The patient was admitted to [facility] 02/12/18 with dysarthria, slurred speech, and right-sided weakness, clinically consistent with acute left MCA ischemic stroke. He had multiple imaging studies per neurology (*see imaging section). He also had a troponin bump, felt to probably be demand ischemia. : Echocardiogram- normal LVEF 55%, without regional wall motion abnormality or thrombus. No PFO/ASD. There is no history of A. fib. *He was on outpatient Xarelto, started approximately 1 month prior, at the time of the B/L LE DVT & large B/L PE. *ASA 81 mg daily was added to the Xarelto at the time of his 02/12 readmission for CVA/demand ischemia. Over the past 1-2 months, the has been seen by numerous disciplines, including oncology, GI, surgery, vascular, cardiology, & neurology. He was getting PT/OT. The patient's Hgb since 01/22/18 has been in the low-to-mid 8 range. He had never been transfused. 02/11/18: PT 24.9, INR 2.27, PTT 29 (albeit on Xarelto), nl LFTs with alb 3.5, glob 3.2, *troponin 0.42-> 0.36-> 0.32. 02/12/18: Admission WBC 12.6 (76% gran/10 gran Ab), *H/H 8.6/26.9, MCV 81.1, RDW 15.4, PLT 476, BUN/Cr 14/0.8, GFR > 60, Na 140, K 4.0, HCO3 25, AG 14, nl FT4 with nl TSH 1.06 The patient had an episode of unwitnessed rectal bleeding earlier this evening of 02/16/18, & his 02/16/18: Labs- WBC 9.1, *H/H 7.2/22.3, MCV 79.9, RDW 15.9, PLT 394, prompting the request for a GI consult. He was hemodynamically stable and afebrile, with O2 sat RA 97%. He was neither hypotensive nor tachycardic. As per my discussion with the medical house staff a short while ago, Xarelto was held, but baby ASA was continued. He was not on NSAIDs. According to the patient's RN, he was on the toilet bowl and was found to have blood in the toilet water, along with brown stool and urine. The patient will only answer limited questions. He denied any abdominal pain, rectal pain, diarrhea, constipation, obstipation, or incomplete evacuation. He had no upper GI symptoms, hematemesis, or melena. He denied any chest pain, shortness of breath, or additional neurologic symptoms, compared to when he was admitted 02/12/18. He stated his sister had colon CA. The patient has a 1:1 sitter. The patient had been confused, but is now O x 3. His intake has been poor. He was previously lethargic and irritable. He was previously found lying in bed by the hospitalist service with only his underwear on. The patient was extremely depressed. He claimed he had no living will or POA (verified by his , whom I called), and "wanted to ". He was in the process of being transfused. He had passed a swallow evaluation on 02/12/18. *The patient's 01/15/18: B/L LE DVT & large B/L PE most probably were from a hypercoagulable state, related to his stage IV colon Ca. *He was placed on Xarelto at that time. Colon cancer was subsequently diagnosed as above, by the relatively recent 01/22/18: EGD/baseline colonoscopy. 01/23/18: IVC filter placed. However, although this will potentially prevent further clots from going to the lungs, the large B/L PE preceded this & ideally, Heme Onc wanted A/C tx continued for 3 months, if possible. Additionally, the patient was just readmitted 02/12/18 for embolic ischemic strokes, again presumably hypercoagulable, on the basis of metastatic colon CA & had a mild troponin bump, felt to be from demand ischemia. 02/13/18: Echo- normal LVEF without wall motion abnormalities, thrombus, PFO or ASD. The patient has not yet had a Port-A-Cath placed to start CTX, due to his other numerous issues. His abdominal wounds were still healing. *I had a long discussion with the patient's , Rowena Salter, on at 11:20 PM, at cell: [phone], regarding the above. She is aware of the fact that her is stuck in a precarious position. He is at risk for further thrombotic/embolic events off of A/C therapy, but on the other hand, he has subacute on chronic anemia, and was bleeding on the Xarelto. The patient could be oozing from his recent 01/24/18: ileocolonic anastomosis. The colonic mucosa was recently cleared, as above. There is a possibility, albeit less likely, that he was having a slow diverticular bleed. The above clinically did not appear to be a rapid transit UGI bleed, and he recently had an EGD, as well. *Furthermore, at the moment, I would not advocate a repeat colonoscopy, as his recent wounds and anastomosis could dehisce. Additionally, I would be leery of performing a colonoscopy on a patient post recent CVA. The patient and his were okay with holding the Xarelto at present. 02/17/18: WBC 10.7, H/H 7.9/24.3 (post 1u PRBC on 02/16/18), PLT 360, BUN/Cr 22/ 0.8, GFR > 60, Na 138, K 3.9, HCO3 26, AG 12; B12 711, folate 8.3 (*both obtained after transfx). *As of 02/17/18, the patient had no recurrent rectal bleeding. There was no abdominal pain. He was on clears po. Apparently, he was previously on a pured diet, post CVA, but was interested in attempting to eat more. He was hemodynamically stable and afebrile, with O2 sat RA 98%. He remained on baby ASA , with Xarelto on hold, per my discussion with oncology. He remains at risk for recurrent thrombotic events, with stage IV colon Ca & liver mets. As per my discussion with oncology, options could include switching the patient to Lovenox in another 24 hrs if stable, which is probably a safer alternative to resuming Xarelto. The patient was seen by psychiatry 02/17/18, & Lexapro was advised, with suggestion to hold Ambien & Xanax, & to continue Ramelteon for insomnia. He seemed less irritable today, but was still depressed. *SUGGEST: *Advance diet as tolerated, with aspiration precautions. *Consider repeat assessmant by speech/swallow department. T&C 2u PRBC. Keep Hgb > 8 (probable underlying ASHD). 2 large bore IV. Check CBC Q12h for now. Supplemental O2 as needed. May continue ASA 81 mg daily, but switch to enteric coated form- Ecotrin 81 mg daily). *Agree with prophylactic PPI daily. *Carefully continue to hold Xarelto, for now (the patient may have been oozing from his anastomotic site). *Advise following up with numerous disciplines (including oncology, neurology, cardiology, vascular, etc.), to get a general consensus regarding the overall risk:benefit ratio, of if or when to resume A/C therapy. *As per my discussion with oncology, if stable within 24 hrs, substitute Lovenox for Xarelto. *If active rebleed of any hemodynamic significance, call GI & get *CTA abdomen (*would not advocate repeating a colonoscopy at present, post recent right hemicolectomy, with risk of dehiscence & low yield). DVT prophylaxis with mechanical ALPS. Continue OT/PT. Eventual bone scan per oncology. Pathology is still pending, regarding KRAS and BRAF status. Eventual Port-A-Cath placement for initiation of CTX (as patient allows) , once patient hopefully stabilizes. Treatment of depression with Lexapro, per psychiatry. *Code status needs to be readdressed, especially if patient refuses therapy. The case was previously discussed with the medical house staff & again with Dr. Fortune. I also spoke with the patient's again on 02/17/18, & updated her, regarding the above, & left a message with Dr. Still. *Further inpt GI followup as needed. Problem List: 1. Adenocarcinoma of colon metastatic to liver 2. Gastrointestinal bleeding 3. Anemia 4. Diverticulosis of colon 5. Pulmonary emboli 6. DVT (deep venous thrombosis) 7. Elevated troponin 8. Demand ischemia 9. CVA (cerebral vascular accident) 10. Expressive aphasia 11. Family history of colon cancer Subjective Subjective: 02/17/18: WBC 10.7, H/H 7.9/24.3 (post 1u PRBC on 02/16/18), PLT 360, BUN/Cr 22/ 0.8, GFR > 60, Na 138, K 3.9, HCO3 26, AG 12; B12 711, folate 8.3 (*both obtained after transfx). *As of 02/17/18, the patient had no recurrent rectal bleeding. There was no abdominal pain. He was on clears po. Apparently, he was previously on a pured diet, post CVA, but was interested in attempting to eat more. He was hemodynamically stable and afebrile, with O2 sat RA 98%. He remained on baby ASA , with Xarelto on hold, per my discussion with oncology. He remains at risk for recurrent thrombotic events, with stage IV colon Ca & liver mets. As per my discussion with oncology, options could include switching the patient to Lovenox in another 24 hrs if stable, which is probably a safer alternative to resuming Xarelto. The patient was seen by psychiatry 02/17/18, & Lexapro was advised, with suggestion to hold Ambien & Xanax, & to continue Ramelteon for insomnia. He seemed less irritable today, but was still depressed. Review of Systems: The patient was very depressed, and therefore, full 14 point ROS were not completely obtainable. (*See HPI). Objective Vital Signs and I&Os Vital Signs Date Time Temp Pulse Resp B/P B/P Pulse O2 O2 Flow FiO2 Mean Ox Delivery Rate 02/17 1400 98.0 79 20 108/60 98 Room Air 02/17 0905 85 120/60 02/17 0904 85 120/60 02/17 0633 98.2 85 20 120/60 96 Room Air 02/17 0000 Room Air 02/16 2248 96.9 80 20 118/58 97 Room Air Intake & Output 02/17 1600 02/17 0400 02/16 1600 02/16 0400 02/15 1600 02/15 0400 Intake Total 550 220 510 350 420 Output Total 500 300 350 Balance 50 220 510 50 70 Intake, IV 10 20 10 Intake, Oral 540 200 500 350 420 Number 1 Bowel Movements Output, Urine 500 300 350 Patient 210 lb 201 lb 210 lb Weight Weight Bed scale Bed scale Bed scale Measurement Method Physical Exam: Well-developed, well-nourished, depressed male, in NAD, slightly agitated. Sclera anicteric. Conjunctiva pink. Oropharynx clear. No oral thrush. No aphthous ulcers. There is no adenopathy, thyromegaly, or JVD. Carotids 1+ B/L without bruits. No peripheral stigmata of inflammatory bowel disease or chronic liver disease on exam. No spiders on the anerior chest wall. No gynecomastia. No CVA tenderness. Lungs: clear to A&P, with slight decreased BS at the bases B/L. No wheezing, rales, or rhonchi. Heart exam: regular rate rhythm, S1 and S2, without any murmur. Abdominal exam: normal bowel sounds, soft belly, essentially nontender (except near healing wound), without guarding or rebound. Midline wound dressed. No mass. No organomegaly. No fluid shift. No pulsatile mass. No epigastric bruit. Digital rectal exam by myself 02/16/18: Brown stool mixed with BRB, obviously OB positive, no masses, normal sphincter tone, no external hemorrhoids, no fissure, smooth enlarged prostate. Extremities : without C, C, or E. No palpable cords. Mild DJD, without acute arthropathy. No rash. Old tattoo. No palmar erythema. No Dupuytren's contractures. DP 1+ bilaterally. Right handed. Mild to moderate dysarthria & verbal apraxia, CN II- XII essentially intact, except for mild R VII. Motor RUE 3-4/5, RLE 4-5/5. Motor 5/5 on left. DTR 2+ on left, 2-3+ on right. No clonus. Alert and oriented x 3, but very depressed & agitated. No tremor. No asterixis. Current Medications: Current Medications Sig/Natalee Start time Last Medication Dose Route Stop Time Status Admin Alprazolam 0.25 MG DAILY 02/13 1000 DC 02/17 PO 02/20 0959 0901 Amlodipine Besylate 5 MG DAILY 02/12 1000 AC 02/17 PO 0905 Aspirin 81 MG DAILY 02/12 0300 DC 02/16 PO 0820 Aspirin Buffered 81 MG DAILY 02/17 1000 AC 02/17 PO 0906 Atorvastatin Calcium 40 MG 1700 02/12 0300 AC 02/17 PO 1602 Cyclobenzaprine HCl 10 MG TID PRN 02/12 1545 AC 02/16 PO 0821 Docusate Sodium 100 MG DAILY NEEDED PRN 02/13 1915 AC PO Escitalopram Oxalate 5 MG DAILY 02/18 1000 AC PO Lidocaine 1 PAT DAILY 02/13 1000 AC 02/17 EXT 0905 Losartan Potassium 100 MG DAILY 02/12 1000 AC 02/17 PO 0904 Morphine Sulfate 2 MG Q6-PRN PRN 02/12 1745 AC 02/17 IV 1601 Nitroglycerin 0.5 GM Q6 02/13 1200 AC 02/17 TOP 1603 Omeprazole 40 MG DAILY AC 02/17 0045 AC PO Oxycodone/ 1 TAB Q4P PRN 02/12 1745 AC 02/17 Acetaminophen PO 1220 Ramelteon 8 MG .STK-MED ONE 02/16 2139 DC PO 02/16 2140 Ramelteon 8 MG AT BEDTIME NEED.. 02/14 211 AC 02/16 PO 2141 Rivaroxaban 15 MG BID 02/12 1000 DC 02/16 PO 0821 Senna 187 MG AT BEDTIME PRN 02/13 1915 AC 02/14 PO 0746 Senna/Docusate Sodium 2 TAB QPM 02/15 2200 AC 02/16 PO 2137 Simethicone 80 MG Q4P PRN 02/15 0300 AC 02/15 PO 0335 Zolpidem Tartrate 10 MG .STK-MED ONE 02/16 2358 DC PO 02/16 2359 Zolpidem Tartrate 10 MG AT BEDTIME PRN 02/16 2345 DC 02/16 PO 2359 Results Pertinent Lab Results: Laboratory Tests 02/17 02/17 0937 0624 Chemistry Sodium (137 - 145 mmol/L) 138 Potassium (3.5 - 5.1 mmol/L) 3.9 Chloride (98 - 107 mmol/L) 101 Carbon Dioxide (22 - 30 mmol/L) 26 Anion Gap (5 - 16) 12 BUN (9 - 20 mg/dL) 22 H Creatinine (0.7 - 1.2 mg/dL) 0.8 Estimated GFR (>60 ml/min) > 60 BUN/Creatinine Ratio (7 - 25 %) 27.5 H Vitamin B12 (239 - 931 pg/mL) 711 Folate (2.76 - 20.0 ng/mL) 8.3 Hematology CBC w Diff NO MAN DIFF REQ WBC (4.8 - 10.8 /CUMM) 10.7 RBC (4.70 - 6.10 /CUMM) 3.02 L Hgb (14.0 - 18.0 G/DL) 7.9 L Hct (42 - 52 %) 24.3 L MCV (80.0 - 94.0 FL) 80.3 MCH (27.0 - 31.0 PG) 26.3 L MCHC (33.0 - 37.0 G/DL) 32.8 L RDW (11.5 - 14.5 %) 15.3 H Plt Count (130 - 400 /CUMM) 360 MPV (7.4 - 10.4 FL) 8.5 Gran % (42.2 - 75.2 %) 72.5 Lymphocytes % (20.5 - 51.1 %) 11.5 L Monocytes % (1.7 - 9.3 %) 8.4 Eosinophils % (0 - 5 %) 7.0 H Basophils % (0.0 - 2.0 %) 0.6 Absolute Granulocytes (1.4 - 6.5 /CUMM) 7.7 H Absolute Lymphocytes (1.2 - 3.4 /CUMM) 1.2 Absolute Monocytes (0.10 - 0.60 /CUMM) 0.9 H Absolute Eosinophils (0.0 - 0.7 /CUMM) 0.7 Absolute Basophils (0.0 - 0.2 /CUMM) 0.1 02/17 1844 Hematology CBC w Diff NO MAN DIFF REQ WBC (4.8 - 10.8 /CUMM) 9.1 RBC (4.70 - 6.10 /CUMM) 2.80 L Hgb (14.0 - 18.0 G/DL) 7.2 *L Hct (42 - 52 %) 22.3 L MCV (80.0 - 94.0 FL) 79.9 L MCH (27.0 - 31.0 PG) 25.7 L MCHC (33.0 - 37.0 G/DL) 32.1 L RDW (11.5 - 14.5 %) 15.9 H Plt Count (130 - 400 /CUMM) 394 MPV (7.4 - 10.4 FL) 8.6 Gran % (42.2 - 75.2 %) 79.7 H Lymphocytes % (20.5 - 51.1 %) 9.3 L Monocytes % (1.7 - 9.3 %) 6.5 Eosinophils % (0 - 5 %) 3.8 Basophils % (0.0 - 2.0 %) 0.7 Absolute Granulocytes (1.4 - 6.5 /CUMM) 7.3 H Absolute Lymphocytes (1.2 - 3.4 /CUMM) 0.9 L Absolute Monocytes (0.10 - 0.60 /CUMM) 0.6 Absolute Eosinophils (0.0 - 0.7 /CUMM) 0.3 Absolute Basophils (0.0 - 0.2 /CUMM) 0.1 Imaging/Other Studies: 01/23/18: CT ABDOMEN AND PELVIS WITH CONTRAST- 1. *Large hepatic flexure mass is seen suspicious for a colon cancer. This appears to be widely metastatic with large mesenteric lymph nodes, retroperitoneal and upper abdominal lymph nodes, and suspected hepatic metastases seen. 2. No evidence of bowel obstruction or perforation. 3. Large amounts of dense material within the gallbladder, likely sludge. Gallbladder otherwise unremarkable. 4. Multiple bilateral renal masses, incompletely characterized on this exam, but similar to older exams and most likely small cysts. 02/11/18: EKG- NSR @ 77, baseline artifact, IRBBB, flipped T in III, flat T in F , w/o significant change. 02/12/18: EKG- NSR @ 97, borderline LAD, IRBBB, w/o change. 02/12/18: EKG- NSR @ 78, IRBBB, borderline T wave abnl inferiorly. 02/11/18: CT HEAD WO IV CONTRAST- Evidence of chronic white matter infarction and ischemic change, mostly in right parietal & occipital region. No acute midline shift, mass effect or hemorrhage. 02/11/18: CT HEAD ANGIOGRAM- Normal CTA of head. 02/12/18: DUPLEX BILATERAL CAROTID ULTRASOUND- Plaque is present in the internal carotid arteries but velocity measurements are normal and there is no evidence to suggest a hemodynamically significant stenosis of greater than 50% diameter reduction. Left vertebral artery is not visualized. 02/13/18: MRI-HEAD W/O DONNIE- 1. There are multiple areas of restricted diffusion in the cerebellar hemispheres in the bilateral frontoparietal regions, most extensive on the right superiorly, consistent with areas of infarction. There is no evidence of hemorrhagic transformation. 2. There is diffuse volume loss and there are chronic microvascular ischemic changes. 3. This critical result was discussed with Brandi Stein by telephone on 02/13/2018 at 12:50 PM and it was ascertained that the content and urgency of the report was understood at the time of direct communication.. DICTATED BY: Chaim Francis MD DATE/TIME DICTATED:02/13/18 / 1238 02/13/18: MR LUMBAR SPINE WITHOUT CONTRAST- 1. Markedly suboptimal study, and only motion degraded sagittal images were obtained. 2. There is spondylosis at L2-L3, L4-L5 and L5-S1 as described above. There does not appear to be central stenosis. DICTATED BY: Chaim Francis MD DATE/TIME DICTATED:02/13/18 / 1259 02/13/18: Echocardiogram- normal LVEF 55%, without regional wall motion abnormality or thrombus. Tr MR/TR. Mild AR. No PFO/ASD.
[2018-02-17 19:16] LABS: ABSOLUTE BASOPHIL COUNT 0.1 /CUMM (0.0-0.2); ABSOLUTE EOSINOPHIL COUNT 0.9 /CUMM (0.0-0.7); ABSOLUTE GRANULOCYTE CT 7.4 /CUMM (1.4-6.5); ABSOLUTE LYMPH COUNT 1.4 /CUMM (1.2-3.4); ABSOLUTE MONOCYTE COUNT 0.8 /CUMM (0.10-0.60); BASOPHIL % 0.6 % (0.0-2.0); EOSINOPHIL % 8.4 % (0-5); GRANULOCYTE % 69.8 % (42.2-75.2); HEMATOCRIT 26.2 % (42-52); MEAN CORPUSCULAR HGB 26.3 PG (27.0-31.0); MEAN CORPUSCULAR HGB CONC 32.4 G/DL (33.0-37.0); MEAN CORPUSCULAR VOLUME 81.1 FL (80.0-94.0); MEAN PLATELET VOLUME 8.7 FL (7.4-10.4); PLATELET COUNT 399 /CUMM (130-400); RBC DISTRIBUTION WIDTH 15.6 % (11.5-14.5); RED BLOOD CELL CT 3.23 /CUMM (4.70-6.10); WHITE BLOOD CELL COUNT 10.6 /CUMM (4.8-10.8)
[2018-02-17 22:04] VITALS: BP 110/48
[2018-02-18 06:38] VITALS: BP 110/40
--- NOTE | 2018-02-18 06:50 | Event Note ---
Event Note Event Note: I was informed by the nurse that the patient has suicidal ideations, he wrapped a sheet around his neck and stated that he wants to . Continuous observation monitor was ordered. Will reevaluate by Psychiatry.
--- NOTE | 2018-02-18 07:46 | PN- Housestaff ---
Subjective Follow-up For: 1. Expressive aphasia with RUE weakness 2. Acute ischemic stroke vs brain mets 3. Metastatic colonic adenocarcinoma s/p hemicolectomy 4. Elevated troponin likely demand ischemia 5. Bilateral DVT and PE s/p IVC filter on xarelto 6. Chronic blood loss anemia from colon cancer 7. New onset GI bleed 02/16 Tele-Events Since Last Visit: Off Subjective: Patient had possible suicidal ideation overnight by "wanting to wrap something around his neck and ". SI monitor was in room to observe overnight and no further event. This morning patient was sitting at window with bedsheets covering his body. Appeared to be calm but stated that he felt frustrated. No other specific complaint besides the chronic back pain. His speech appeared to be more smooth and less difficult on finding words. Review of Systems Constitutional: Reports: see HPI. Objective Last 24 Hrs of Vital Signs/I&O Vital Signs Date Time Temp Pulse Resp B/P B/P Pulse O2 O2 Flow FiO2 Mean Ox Delivery Rate 02/18 0810 80 110/50 02/18 0810 80 110/50 02/18 0638 98.6 81 20 110/40 99 Room Air 02/17 2204 98.2 79 24 110/48 100 Room Air 02/17 1400 98.0 79 20 108/60 98 Room Air 02/17 0905 85 120/60 02/17 0904 85 120/60 Intake & Output 02/18 1600 02/18 0800 02/18 0000 Intake Total 500 240 Output Total Balance 500 240 Intake, Oral 500 240 Patient 93.695 kg Weight Weight Bed scale Measurement Method Physical Exam General Appearance: Alert, Oriented X3, No Acute Distress Cardiovascular: Regular Rate Lungs: Clear to Auscultation, Normal Air Movement Abdomen: Soft, No Tenderness, Surgical incision site appeared clear with some crust from previous serous effusion, no redness/erythema/tenderness. Extremities: No Cyanosis, No Edema, Normal Pulses Current Medications: Current Medications Sig/Natalee Start time Last Medication Dose Route Stop Time Status Admin Alprazolam 0.25 MG DAILY 02/13 1000 DC 02/17 PO 02/20 0959 0901 Amlodipine Besylate 5 MG DAILY 02/12 1000 AC 02/18 PO 0810 Aspirin Buffered 81 MG DAILY 02/17 1000 AC 02/18 PO 0810 Atorvastatin Calcium 40 MG 1700 02/12 0300 AC 02/17 PO 1602 Cyclobenzaprine HCl 10 MG TID PRN 02/12 1545 AC 02/18 PO 0314 Docusate Sodium 100 MG DAILY NEEDED PRN 02/13 191 AC PO Escitalopram Oxalate 5 MG DAILY 02/18 1000 AC 02/18 PO 0810 Lidocaine 1 PAT DAILY 02/13 1000 AC 02/18 EXT 0810 Losartan Potassium 100 MG DAILY 02/12 1000 AC 02/18 PO 0810 Morphine Sulfate 2 MG Q6-PRN PRN 02/12 1745 AC 02/18 IV 0811 Nitroglycerin 0.5 GM Q6 02/13 1200 AC 02/17 TOP 1603 Omeprazole 40 MG DAILY AC 02/17 0045 AC 02/18 PO 0603 Oxycodone/ 1 TAB Q4P PRN 02/12 1745 AC 02/18 Acetaminophen PO 0603 Ramelteon 8 MG AT BEDTIME NEED.. 02/14 211 AC 02/16 PO 2141 Senna 187 MG AT BEDTIME PRN 02/13 1915 AC 02/14 PO 0746 Senna/Docusate Sodium 2 TAB QPM 02/15 2200 AC 02/16 PO 2137 Simethicone 80 MG Q4P PRN 02/15 0300 AC 02/15 PO 0335 Zolpidem Tartrate 10 MG AT BEDTIME PRN 02/16 2345 DC 02/16 PO 2359 Last 24 Hrs of Lab/Marlon Results Last 24 Hrs of Labs/Mics: Laboratory Tests 02/18/18 0615: Anion Gap 14, Estimated GFR > 60, BUN/Creatinine Ratio 20.0, CBC w Diff Pending, WBC Pending, RBC Pending, Hgb Pending, Hct Pending, MCV Pending, MCH Pending, MCHC Pending, RDW Pending, Plt Count Pending, MPV Pending 02/17/18 1815: CBC w Diff NO MAN DIFF REQ, RBC 3.23 L, MCV 81.1, MCH 26.3 L, MCHC 32.4 L, RDW 15.6 H, MPV 8.7, Gran % 69.8, Lymphocytes % 13.5 L, Monocytes % 7.7, Eosinophils % 8.4 H, Basophils % 0.6, Absolute Granulocytes 7.4 H, Absolute Lymphocytes 1.4, Absolute Monocytes 0.8 H, Absolute Eosinophils 0.9, Absolute Basophils 0.1 02/17/18 0937: Anion Gap 12, Estimated GFR > 60, BUN/Creatinine Ratio 27.5 H, Vitamin B12 711, Folate 8.3 Assessment/Plan Assessment: 67-year-old unfortunate male with past medical history significant for hypertension, hyperlipidemia, alcohol induced pancreatitis, osteoarthritis, bilateral lower extremity DVT, bilateral unprovoked pulmonary embolism on Xarelto 15 twice daily, colon cancer status post resection presented to the emergency department with chief complaint of change in speech since 02/11/2018 8 AM, and RUE stiffness found to have a CVA. P: #?bloody BM H/H dropped 8.2 -> 7.2 -> 8.5 on latest lab s/p 1U pRBC on 02/16. Will continue monitor qd. - If stable >24hrs, will restart Lovenox 1mg/kg q12 per Oncology recommendation. -guaiac all stools -Pending GI consult #Suicidal ideation/Psych issues/Depression/Anxiety - Appreciated Psych consult, will continue lexapro 5mg po qd for depression/ anxiety, and titrate further when patient was sent for STR. - Continued ramelteon for insomnia - Discontinued Xanax to avoid exacerbating delirium in the elderly, and discontinued Zolpidem. - May consider hydroxyzine 25-50 mg by mouth at bedtime, or trazodone 50 mg at bedtime as needed for insomnia. - No Na abnormality on latest BEP. No QTc prolongation on EKG. #CVA: MRI Head: 1. There are multiple areas of restricted diffusion in the cerebellar hemispheres in the bilateral frontoparietal regions, most extensive on the right superiorly, consistent with areas of infarction. There is no evidenceof hemorrhagic transformation. 2. There is diffuse volume loss and there are chronic microvascular ischemicchanges. MRI Spine: 1. Markedly suboptimal study, and only motion degraded sagittal images were obtained. 2. There is spondylosis at L2-L3, L4-L5 and L5-S1 as described above. Theredoes not appear to be central stenosis. * Continue neuro checks and fall precautions * Continue aspirin and Lipitor * Recent echo in December 2017 showed ejection fraction 55% with impaired left ventricular relaxation * Cardio consult recommended adding NG ointment 0.5gm q6. * Continue cardiology neurology recommendations * PTOT recommended STR, pending bed placement. * Speech and swallow recommended Puree/thin liquid * HbA1c 5.1 and lipid panel (WNL) #Elevated troponin, demand ischemia Troponins 0.42, 0.26, 0.32 Echocardiogram: 1. Limited study due to patient agitation. 2. Normal EF of 55% . * Continue cardiology recommendations * Continue aspirin and Lipitor as above #Stage IV colon cancer with liver metastasis: During his last admission, Endoscopy revealed submucosal nodule second portion of the duodenum, scattered gastric erosions with no stigmata of bleeding, and non-obstructing schtazki's ring. Colonoscopy revealed an ileocecal valve mass which pathology subsequently showed to be invasive moderately to poorly differentiated adenocarcinoma. Oncology was consulted and recommended CT abdomen/pelvis that revealed metastatic disease with large mesenteric lymph nodes, retroperitoneal and upper abdominal lymph nodes, and suspected hepatic metastases with no evidence of bowel obstruction. Underwent hemicolectomy and he has been following up with oncologist as an outpatient to start chemotherapy. #Bilateral Lower Extremity DVTs and Bilateral PE s/p IVC Filter placement: Patient was recently admitted for bilateral lower extremity DVTs and PE. Because he needed to have a hemicolectomy, an IVC filter was placed by vascular surgery. * original plan was xaralto 15 mg twice daily for 1 more week and then start 20 mg daily, however now on hold as above due to GI bleed. #Hypertension * Continue amlodipine and losartan #Chronic back pain * Continue pain control #full code #DVT prophylaxis none 2/2 GI bleed Problem List: 1. Anemia 2. CVA (cerebral vascular accident) Pain Ratin Pain Location: NA Pain Goal: Remain pain free Pain Plan: see AP Tomorrow's Labs & Rationales: CBC
[2018-02-18 08:22] LABS: ABSOLUTE BASOPHIL COUNT 0.1 /CUMM (0.0-0.2); ABSOLUTE GRANULOCYTE CT 7.1 /CUMM (1.4-6.5); ABSOLUTE LYMPH COUNT 1.2 /CUMM (1.2-3.4); ABSOLUTE MONOCYTE COUNT 0.9 /CUMM (0.10-0.60); BASOPHIL % 1.1 % (0.0-2.0); EOSINOPHIL % 9.9 % (0-5); GRANULOCYTE % 68.5 % (42.2-75.2); HEMATOCRIT 25.4 % (42-52); MEAN CORPUSCULAR HGB 26.8 PG (27.0-31.0); MEAN CORPUSCULAR HGB CONC 33.1 G/DL (33.0-37.0); MEAN CORPUSCULAR VOLUME 80.8 FL (80.0-94.0); MEAN PLATELET VOLUME 8.9 FL (7.4-10.4); PLATELET COUNT 357 /CUMM (130-400); RBC DISTRIBUTION WIDTH 15.4 % (11.5-14.5); RED BLOOD CELL CT 3.14 /CUMM (4.70-6.10); WHITE BLOOD CELL COUNT 10.4 /CUMM (4.8-10.8)
--- NOTE | 2018-02-18 08:55 | PN- Oncology ---
Subjective Subjective: He was noted to have suicidal ideation overnight. Per report, he attempted to wrap the sheets around his neck. He denied doing this. He "doesn't know about it." He continues to be agitated and irritable. He continues to have back and side pain. Review of Systems Constitutional: Denies: chills, fever. Cardiovascular: Denies: chest pain. Gastrointestinal: Reports: abdominal pain. Musculoskeletal: Reports: back pain. Neurological/Psychological: Reports: confusion, emotional problems. Objective Vital Signs and I&Os Vital Signs Date Time Temp Pulse Resp B/P B/P Pulse O2 O2 Flow FiO2 Mean Ox Delivery Rate 02/18 0810 80 110/50 02/18 0810 80 110/50 02/18 0638 98.6 81 20 110/40 99 Room Air 02/17 2204 98.2 79 24 110/48 100 Room Air 02/17 1400 98.0 79 20 108/60 98 Room Air 02/17 0905 85 120/60 02/17 0904 85 120/60 Intake & Output 02/18 1600 02/18 0800 02/18 0000 02/17 1600 02/17 0800 02/17 0000 Intake Total 500 240 310 240 220 Output Total 500 Balance 500 240 310 -260 220 Intake, IV 10 20 Intake, Oral 500 240 300 240 200 Number 1 Bowel Movements Output, Urine 500 Patient 93.695 kg 95.056 kg Weight Weight Bed scale Bed scale Measurement Method Physical Exam: General Appearance: well developed/nourished, alert, awake, anxious, moderate distress, irritable, disoriented. Respiratory: normal breath sounds, chest non-tender, no respiratory distress Cardiovascular: regular rate/rhythm Abdomen: normal bowel sounds, soft, non-tender, midline incision intact, mild drainage Extremities: normal inspection Neurologic/Psychiatric: awake, alert, oriented x 3, apraxia, dysarthria, irritable, agitated, no SI Current Medications: Current Medications Sig/Natalee Start time Last Medication Dose Route Stop Time Status Admin Alprazolam 0.25 MG DAILY 02/13 1000 DC 02/17 PO 02/20 0959 0901 Amlodipine Besylate 5 MG DAILY 02/12 1000 AC 02/18 PO 0810 Aspirin Buffered 81 MG DAILY 02/17 1000 AC 02/18 PO 0810 Atorvastatin Calcium 40 MG 1700 02/12 0300 AC 02/17 PO 1602 Cyclobenzaprine HCl 10 MG TID PRN 02/12 1545 AC 02/18 PO 0314 Docusate Sodium 100 MG DAILY NEEDED PRN 02/13 1915 AC PO Escitalopram Oxalate 5 MG DAILY 02/18 1000 AC 02/18 PO 0810 Lidocaine 1 PAT DAILY 02/13 1000 AC 02/18 EXT 0810 Losartan Potassium 100 MG DAILY 02/12 1000 AC 02/18 PO 0810 Morphine Sulfate 2 MG Q6-PRN PRN 02/12 1745 AC 02/18 IV 0811 Nitroglycerin 0.5 GM Q6 02/13 1200 AC 02/17 TOP 1603 Omeprazole 40 MG DAILY AC 02/17 0045 AC 02/18 PO 0603 Oxycodone/ 1 TAB Q4P PRN 02/12 1745 AC 02/18 Acetaminophen PO 0603 Ramelteon 8 MG AT BEDTIME NEED.. 02/14 211 AC 02/16 PO 2141 Senna 187 MG AT BEDTIME PRN 02/13 1915 AC 02/14 PO 0746 Senna/Docusate Sodium 2 TAB QPM 02/15 2200 AC 02/16 PO 2137 Simethicone 80 MG Q4P PRN 02/15 0300 AC 02/15 PO 0335 Zolpidem Tartrate 10 MG AT BEDTIME PRN 02/16 2345 DC 02/16 PO 2359 Results Last 24 Hours of Lab Results: Laboratory Tests 02/18 02/17 02/17 0615 1815 0937 Chemistry Sodium (137 - 145 mmol/L) 139 138 Potassium (3.5 - 5.1 mmol/L) 3.9 3.9 Chloride (98 - 107 mmol/L) 98 101 Carbon Dioxide (22 - 30 mmol/L) 27 26 Anion Gap (5 - 16) 14 12 BUN (9 - 20 mg/dL) 16 22 H Creatinine (0.7 - 1.2 mg/dL) 0.8 0.8 Estimated GFR (>60 ml/min) > 60 > 60 BUN/Creatinine Ratio (7 - 25 %) 20.0 27.5 H Vitamin B12 (239 - 931 pg/mL) 711 Folate (2.76 - 20.0 ng/mL) 8.3 Hematology CBC w Diff Pending NO MAN DIFF REQ WBC (4.8 - 10.8 /CUMM) Pending 10.6 RBC (4.70 - 6.10 /CUMM) Pending 3.23 L Hgb (14.0 - 18.0 G/DL) Pending 8.5 L Hct (42 - 52 %) Pending 26.2 L MCV (80.0 - 94.0 FL) Pending 81.1 MCH (27.0 - 31.0 PG) Pending 26.3 L MCHC (33.0 - 37.0 G/DL) Pending 32.4 L RDW (11.5 - 14.5 %) Pending 15.6 H Plt Count (130 - 400 /CUMM) Pending 399 MPV (7.4 - 10.4 FL) Pending 8.7 Gran % (42.2 - 75.2 %) 69.8 Lymphocytes % (20.5 - 51.1 %) 13.5 L Monocytes % (1.7 - 9.3 %) 7.7 Eosinophils % (0 - 5 %) 8.4 H Basophils % (0.0 - 2.0 %) 0.6 Absolute Granulocytes (1.4 - 6.5 /CUMM) 7.4 H Absolute Lymphocytes (1.2 - 3.4 /CUMM) 1.4 Absolute Monocytes (0.10 - 0.60 /CUMM) 0.8 H Absolute Eosinophils (0.0 - 0.7 /CUMM) 0.9 Absolute Basophils (0.0 - 0.2 /CUMM) 0.1 Assessment/Plan Assessment/Recommendations: Mr. Salter is a 67-year-old male with HTN, HLD, EtOH pancreatitis, OA, DVT/PE s /p IVC filter and currently on rivaroxaban, and stage IV adenocarcinoma of the colon with metastases to the liver s/p right hemicolectomy who presented with word finding difficulty, slurred speech, and right sided weakness. CT head without contrast and CTA head were done and was unremarkable. He has no obvious metastatic disease or ICH. MRI brain is demonstrated multiple areas of restricted diffusion in the cerebellar hemispheres and in the bilateral frontoparietal regions. These were consistent with infarction. MRI lumbar demonstrated no evidence of metastatic disease. He has no evidence of hemorrhagic transformation. Neurology is following. He has no obvious bleeding overnight. Hemoglobin has been stable. CBC is pending today. He is off rivaroxaban. He is on aspirin. If he has no signs or symptoms of bleeding, he may be restarted on anticoagulation today with enoxaparin. If he does have repeated bleeding, he will be off anticoagulation indefinitely. He will need port placement and chemotherapy once stable. GI Bleeding: -if no bleeding >24 hours, trial of enoxaparin 1 mg/kg q12 hour -once stable, can restart rivaroxaban likely as an outpatient CVA: -neurology following -continue ASA -pending STR Metastatic colon cancer: -bone scan to evaluate for metastatic disease -port placement needed -outpatient chemotherapy 4-6 weeks after surgery DVT/PE: -hold anticoagulation for now, given GI bleeding and anemia -enoxaparin if no bleeding Please call [phone] with any questions or concerns. Problem List: 1. Diverticulosis of colon 2. Anemia 3. CVA (cerebral vascular accident) 4. Adenocarcinoma of colon metastatic to liver 5. Gastrointestinal bleeding 6. Pulmonary emboli 7. DVT (deep venous thrombosis)
[2018-02-18 14:00] VITALS: BP 98/40
[2018-02-18 22:08] VITALS: BP 120/68
[2018-02-19 06:45] VITALS: BP 110/50
--- NOTE | 2018-02-19 07:44 | PN- Housestaff ---
Subjective Follow-up For: 1. Expressive aphasia with RUE weakness, improving 2. Acute ischemic stroke vs brain mets 3. Metastatic colonic adenocarcinoma s/p hemicolectomy 4. Elevated troponin likely demand ischemia 5. Bilateral DVT and PE s/p IVC filter on xarelto 6. Chronic blood loss anemia from colon cancer, stable 7. New onset GI bleed 02/16, no new episodes Tele-Events Since Last Visit: Off Subjective: No overnight event. Patient stated during the night that he wanted to however no actual attempt was carried out. Appeared to be frustrated this morning and would not like to talk much. Stated that his back pain is still bothering him. Review of Systems Constitutional: Reports: see HPI. Objective Last 24 Hrs of Vital Signs/I&O Vital Signs Date Time Temp Pulse Resp B/P B/P Pulse O2 O2 Flow FiO2 Mean Ox Delivery Rate 02/19 0645 97.7 80 20 110/50 99 Room Air 02/18 2208 98.5 74 18 120/68 97 02/18 1400 97.8 82 20 98/40 97 Room Air 02/18 0810 80 110/50 02/18 0810 80 110/50 Intake & Output 02/19 0800 02/19 0000 02/18 1600 Intake Total 425 120 320 Output Total Balance 425 120 320 Intake, IV 20 Intake, Oral 425 120 300 Number 1 Bowel Movements Patient 95.3 kg Weight Physical Exam General Appearance: Alert, Oriented X3, Mild Distress Cardiovascular: Regular Rate Lungs: Clear to Auscultation, Normal Air Movement Abdomen: Soft, No Tenderness, incision site clean without discharge. Neurological: aphasia appeared to be improved Extremities: No Edema, Normal Pulses Current Medications: Current Medications Sig/Natalee Start time Last Medication Dose Route Stop Time Status Admin Amlodipine Besylate 5 MG DAILY 02/12 1000 AC 02/18 PO 0810 Aspirin Buffered 81 MG DAILY 02/17 1000 AC 02/18 PO 0810 Atorvastatin Calcium 40 MG 1700 02/12 0300 AC 02/18 PO 1745 Cyclobenzaprine HCl 10 MG TID PRN 02/12 1545 AC 02/18 PO 0314 Docusate Sodium 100 MG DAILY NEEDED PRN 02/13 1915 AC PO Enoxaparin Sodium 100 MG BID 02/18 1312 AC 02/18 SC 2032 Escitalopram Oxalate 5 MG DAILY 02/18 1000 AC 02/18 PO 0810 Lidocaine 1 PAT DAILY 02/13 1000 AC 02/18 EXT 0810 Losartan Potassium 100 MG DAILY 02/12 1000 AC 02/18 PO 0810 Morphine Sulfate 2 MG Q6-PRN PRN 02/12 1745 AC 02/19 IV 0508 Nitroglycerin 0.5 GM Q6 02/13 1200 AC 02/18 TOP 1745 Omeprazole 40 MG DAILY AC 02/17 0045 AC 02/18 PO 0603 Ondansetron HCl 4 MG ONCE ONE 02/19 0145 DC 02/19 IV 02/19 0146 0153 Oxycodone/ 1 TAB Q4P PRN 02/12 1745 AC 02/18 Acetaminophen PO 2032 Ramelteon 8 MG AT BEDTIME NEED.. 02/14 2115 AC 02/16 PO 2141 Senna 187 MG AT BEDTIME PRN 02/13 1915 AC 02/14 PO 0746 Senna/Docusate Sodium 2 TAB QPM 02/15 2200 AC 02/18 PO 2037 Simethicone 80 MG Q4P PRN 02/15 0300 AC 02/15 PO 0335 Last 24 Hrs of Lab/Marlon Results Last 24 Hrs of Labs/Mics: Laboratory Tests 02/19/18 0635: CBC w Diff Pending, WBC Pending, RBC Pending, Hgb Pending, Hct Pending, MCV Pending, MCH Pending, MCHC Pending, RDW Pending, Plt Count Pending, MPV Pending Assessment/Plan Assessment: Mr. Salter is a 67-year-old unfortunate male with past medical history significant for hypertension, hyperlipidemia, alcohol induced pancreatitis, osteoarthritis, bilateral lower extremity DVT, bilateral unprovoked pulmonary embolism on Xarelto 15 twice daily, colon cancer status post resection presented to the emergency department with chief complaint of change in speech since 02/11 8 AM, and RUE stiffness found to have a CVA. P: #?bloody BM H/H dropped 8.2 -> 7.2 -> 8.5 on latest lab s/p 1U pRBC on 02/16. Will continue monitor qd. - Restarted Lovenox 1mg/kg q12 on 02/18 as patient had been stable on H/H >24hrs, per Oncology recommendation. -guaiac all stools -GI consult appreciated #Suicidal ideation/Psych issues/Depression/Anxiety - Appreciated Psych consult, will continue lexapro 5mg po qd for depression/ anxiety, and titrate further when patient was sent for STR. - Pending re-eval of patient's SI by Psych for disposition plan - Continued ramelteon for insomnia - Discontinued Xanax to avoid exacerbating delirium in the elderly, and discontinued Zolpidem. - May consider hydroxyzine 25-50 mg by mouth at bedtime, or trazodone 50 mg at bedtime as needed for insomnia. - No Na abnormality on latest BEP. No QTc prolongation on EKG. #CVA: MRI Head: 1. There are multiple areas of restricted diffusion in the cerebellar hemispheres in the bilateral frontoparietal regions, most extensive on the right superiorly, consistent with areas of infarction. There is no evidenceof hemorrhagic transformation. 2. There is diffuse volume loss and there are chronic microvascular ischemicchanges. MRI Spine: 1. Markedly suboptimal study, and only motion degraded sagittal images were obtained. 2. There is spondylosis at L2-L3, L4-L5 and L5-S1 as described above. Theredoes not appear to be central stenosis. * Continue neuro checks and fall precautions * Continue aspirin and Lipitor * Recent echo in December 2017 showed ejection fraction 55% with impaired left ventricular relaxation * Cardio consult recommended adding NG ointment 0.5gm q6. * Continue cardiology neurology recommendations * PTOT recommended STR, pending bed placement. * Speech and swallow recommended Mechanical/thin liquid + plastic utensil * HbA1c 5.1 and lipid panel (WNL) #Elevated troponin, demand ischemia Troponins 0.42, 0.26, 0.32 Echocardiogram: 1. Limited study due to patient agitation. 2. Normal EF of 55% . * Continue cardiology recommendations * Continue aspirin and Lipitor as above #Stage IV colon cancer with liver metastasis: During his last admission, Endoscopy revealed submucosal nodule second portion of the duodenum, scattered gastric erosions with no stigmata of bleeding, and non-obstructing schtazki's ring. Colonoscopy revealed an ileocecal valve mass which pathology subsequently showed to be invasive moderately to poorly differentiated adenocarcinoma. Oncology was consulted and recommended CT abdomen/pelvis that revealed metastatic disease with large mesenteric lymph nodes, retroperitoneal and upper abdominal lymph nodes, and suspected hepatic metastases with no evidence of bowel obstruction. Underwent hemicolectomy and he has been following up with oncologist as an outpatient to start chemotherapy. #Bilateral Lower Extremity DVTs and Bilateral PE s/p IVC Filter placement: Patient was recently admitted for bilateral lower extremity DVTs and PE. Because he needed to have a hemicolectomy, an IVC filter was placed by vascular surgery. * original plan was xaralto 15 mg twice daily for 1 more week and then start 20 mg daily, however now on hold as above due to GI bleed. - Lovenox 100mg SC BID started, monitor for signs of bleeding #Hypertension * Continue amlodipine and losartan #Chronic back pain * Continue pain control #full code #DVT prophylaxis none 2/2 GI bleed Problem List: 1. Expressive aphasia 2. CVA (cerebral vascular accident) Pain Ratin Pain Location: Back Pain Goal: Pain 7 or less Pain Plan: see AP Tomorrow's Labs & Rationales: CBC
--- NOTE | 2018-02-19 07:47 | PN- Oncology ---
Subjective Subjective: He seems a little better today. He continues to have back pain. He has no bleeding complications with the enoxaparin for now. He remains irritable but seems more calmed. Review of Systems Constitutional: Denies: chills, fever. Cardiovascular: Denies: chest pain. Gastrointestinal: Reports: abdominal pain. Musculoskeletal: Reports: back pain. Neurological/Psychological: Denies: confusion. Hematologic/Endocrine: Denies: bruising, bleeding. All Other Systems: Reviewed and Negative Objective Vital Signs and I&Os Vital Signs Date Time Temp Pulse Resp B/P B/P Pulse O2 O2 Flow FiO2 Mean Ox Delivery Rate 02/19 0645 97.7 80 20 110/50 99 Room Air 02/18 2208 98.5 74 18 120/68 97 02/18 1400 97.8 82 20 98/40 97 Room Air 02/18 0810 80 110/50 02/18 0810 80 110/50 Intake & Output 02/19 0800 02/19 0000 02/18 1600 02/18 0800 02/18 0000 02/17 1600 Intake Total 425 120 320 500 240 310 Output Total Balance 425 120 320 500 240 310 Intake, IV 20 10 Intake, Oral 425 120 300 500 240 300 Number 1 Bowel Movements Patient 95.3 kg 93.695 kg Weight Weight Bed scale Measurement Method Physical Exam General Appearance: no apparent distress, comfortable Head: atraumatic, normal appearance Respiratory: normal breath sounds, chest non-tender, no respiratory distress, quiet respiration Cardiovascular: regular rate/rhythm Abdomen: soft, tenderness (around incision), midline incision Extremities: no edema Neurologic/Psychiatric: awake, alert, oriented x 3, apraxia improving, dysartheria improving Current Medications: Current Medications Sig/Natalee Start time Last Medication Dose Route Stop Time Status Admin Amlodipine Besylate 5 MG DAILY 02/12 1000 AC 02/18 PO 0810 Aspirin Buffered 81 MG DAILY 02/17 1000 AC 02/18 PO 0810 Atorvastatin Calcium 40 MG 1700 02/12 0300 AC 02/18 PO 1745 Cyclobenzaprine HCl 10 MG TID PRN 02/12 1545 AC 02/18 PO 0314 Docusate Sodium 100 MG DAILY NEEDED PRN 02/13 1915 AC PO Enoxaparin Sodium 100 MG BID 02/18 1312 AC 02/18 SC 2032 Escitalopram Oxalate 5 MG DAILY 02/18 1000 AC 02/18 PO 0810 Lidocaine 1 PAT DAILY 02/13 1000 AC 02/18 EXT 0810 Losartan Potassium 100 MG DAILY 02/12 1000 AC 02/18 PO 0810 Morphine Sulfate 2 MG Q6-PRN PRN 02/12 1745 AC 02/19 IV 0508 Nitroglycerin 0.5 GM Q6 02/13 1200 AC 02/18 TOP 1745 Omeprazole 40 MG DAILY AC 02/17 0045 AC 02/18 PO 0603 Ondansetron HCl 4 MG ONCE ONE 02/19 0145 DC 02/19 IV 02/19 0146 0153 Oxycodone/ 1 TAB Q4P PRN 02/12 1745 AC 02/18 Acetaminophen PO 2032 Ramelteon 8 MG AT BEDTIME NEED.. 02/14 2115 AC 02/16 PO 2141 Senna 187 MG AT BEDTIME PRN 02/13 1915 AC 02/14 PO 0746 Senna/Docusate Sodium 2 TAB QPM 02/15 2200 AC 02/18 PO 2037 Simethicone 80 MG Q4P PRN 02/15 0300 AC 02/15 PO 0335 Results Last 24 Hours of Lab Results: Laboratory Tests 02/19 0635 Hematology CBC w Diff Pending WBC Pending RBC Pending Hgb Pending Hct Pending MCV Pending MCH Pending MCHC Pending RDW Pending Plt Count Pending MPV Pending Assessment/Plan Assessment/Recommendations: Mr. Salter is a 67-year-old male with HTN, HLD, EtOH pancreatitis, OA, DVT/PE s /p IVC filter and currently on rivaroxaban, and stage IV adenocarcinoma of the colon with metastases to the liver s/p right hemicolectomy who presented with word finding difficulty, slurred speech, and right sided weakness. CT head without contrast and CTA head were done and was unremarkable. He has no obvious metastatic disease or ICH. MRI brain is demonstrated multiple areas of restricted diffusion in the cerebellar hemispheres and in the bilateral frontoparietal regions. MRI lumbar demonstrated no evidence of metastatic disease. He has no evidence of hemorrhagic transformation. He has been restarted on anticoagulation with enoxaparin 100 mg SQ every 12 hours. He has no bleeding currently. CBC is pending. He will need to be monitored closely for bleeding. Psychiatric issues are a major concern for him at the moment. He has no SI currently. Psychiatry is following. He will need port and chemotherapy for his metastatic colon cancer. Surgery was on 01/24. Ideally, therapy would be started 4-6 weeks after surgery. Depression/SI: -psychiatry following GI Bleeding: -monitor closely with restart of enoxaparin CVA: -neurology following -continue ASA -pending STR Metastatic colon cancer: -bone scan to evaluate for metastatic disease -port placement needed -outpatient chemotherapy 4-6 weeks after surgery -follow up as outpatient DVT/PE: -enoxaparin 1 mg/kg -monitor closely for bleeding Please call [phone] with any questions or concerns. Problem List: 1. Anemia 2. CVA (cerebral vascular accident) 3. Adenocarcinoma of colon metastatic to liver 4. DVT (deep venous thrombosis) 5. Pulmonary emboli 6. Depression
[2018-02-19 08:43] LABS: ABSOLUTE BASOPHIL COUNT 0.1 /CUMM (0.0-0.2); ABSOLUTE EOSINOPHIL COUNT 0.4 /CUMM (0.0-0.7); ABSOLUTE GRANULOCYTE CT 7.6 /CUMM (1.4-6.5); ABSOLUTE MONOCYTE COUNT 0.7 /CUMM (0.10-0.60); BASOPHIL % 0.8 % (0.0-2.0); EOSINOPHIL % 3.6 % (0-5); GRANULOCYTE % 77.4 % (42.2-75.2); HEMATOCRIT 24.9 % (42-52); MEAN CORPUSCULAR HGB 26.2 PG (27.0-31.0); MEAN CORPUSCULAR HGB CONC 32.6 G/DL (33.0-37.0); MEAN CORPUSCULAR VOLUME 80.2 FL (80.0-94.0); MEAN PLATELET VOLUME 9.3 FL (7.4-10.4); PLATELET COUNT 372 /CUMM (130-400); RBC DISTRIBUTION WIDTH 15.4 % (11.5-14.5); WHITE BLOOD CELL COUNT 9.9 /CUMM (4.8-10.8)
--- NOTE | 2018-02-19 11:27 | PN- Att Addend ---
Attending Addendum Attending Brief Note Patient seen and examined. Plan of care discussed with the medical team and the patient. Available lab work and radiology test reports were reviewed. No further GI bleed has been reported. No major change in clinical status since yesterday. Patient's found to be lying in bed with his clothes off and only wearing underwear as usual. Patient has a sitter. As per sitter patient has been confused and agitated at times. Patient denies any recent fever or chest pain difficulty breathing. He does not report any abdominal pain and nausea vomiting. His mood is depressed. Exam: General: Patient awake but appears lethargic and irritable- he appears pale; patient lying in bed with only underwear on CVS: S1 plus S2 without any murmur or gallops Chest: Few scattered crepitation without any wheeze. There is no respiratory distress. 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 delirium * hypertension, * hyperlipidemia, * History of alcohol induced pancreatitis, * osteoarthritis, * bilateral lower extremity DVT, bilateral unprovoked pulmonary embolism on Xarelto * Stage IV adenocarcinoma of colon with liver metastases- waiting for port insertion as out pt * Possible depression * Lower GI bleed- likely contributed by adenocarcinoma of colon and being on Xeralto * Depression and suicidal ideation * Uncontrolled back pain Plan * Continue aspirin and Lipitor and other medications * Continue Celexa; please assess psychiatric to reevaluate patient * Continue to hold Xeralto; continue aspirin * Continue Lovenox therapeutic dose 1 mg/kg twice a day subcutaneous * Recheck CBC tomorrow * Start Tylenol 500 mg every 6 hours [id number] * Add Neurontin 200 mg 3 times a day by mouth Current Medications Sig/Natalee Start time Last Medication Dose Route Stop Time Status Admin Acetaminophen 500 MG Q6P PRN 02/19 1130 AC PO Amlodipine Besylate 5 MG DAILY 02/12 1000 AC 02/18 PO 0810 Aspirin Buffered 81 MG DAILY 02/17 1000 AC 02/18 PO 0810 Atorvastatin Calcium 40 MG 1700 02/12 0300 AC 02/18 PO 1745 Cyclobenzaprine HCl 10 MG TID PRN 02/12 1545 AC 02/18 PO 0314 Docusate Sodium 100 MG DAILY NEEDED PRN 02/13 1915 AC PO Enoxaparin Sodium 100 MG BID 02/18 1312 AC 02/19 SC 1011 Escitalopram Oxalate 5 MG DAILY 02/18 1000 AC 02/18 PO 0810 Gabapentin 200 MG TID 02/19 1120 AC PO Lidocaine 1 PAT DAILY 02/13 1000 AC 02/19 EXT 1015 Losartan Potassium 100 MG DAILY 02/12 1000 AC 02/18 PO 0810 Morphine Sulfate 2 MG Q6-PRN PRN 02/12 1745 AC 02/19 IV 0508 Nitroglycerin 0.5 GM Q6 02/13 1200 AC 02/18 TOP 1745 Omeprazole 40 MG DAILY AC 02/17 0045 AC 02/18 PO 0603 Ondansetron HCl 4 MG ONCE ONE 02/19 0145 DC 02/19 IV 02/19 0146 0153 Oxycodone/ 1 TAB Q4P PRN 02/12 1745 AC 02/19 [place] 0803 Ramelteon 8 MG AT BEDTIME NEED.. 02/14 2115 AC 02/16 PO 2141 Senna 187 MG AT BEDTIME PRN 02/13 1915 AC 02/14 PO 0746 Senna/Docusate Sodium 2 TAB QPM 02/15 2200 AC 02/18 PO 2037 Simethicone 80 MG Q4P PRN 02/15 0300 AC 02/15 PO 0335 Laboratory Tests 02/19/18 0635: CBC w Diff NO MAN DIFF REQ, RBC 3.10 L, MCV 80.2, MCH 26.2 L, MCHC 32.6 L, RDW 15.4 H, MPV 9.3, Gran % 77.4 H, Lymphocytes % 10.6 L, Monocytes % 7.6, Eosinophils % 3.6, Basophils % 0.8, Absolute Granulocytes 7.6 H, Absolute Lymphocytes 1.0 L, Absolute Monocytes 0.7 H, Absolute Eosinophils 0.4, Absolute Basophils 0.1 02/18/18 0615: Anion Gap 14, Estimated GFR > 60, BUN/Creatinine Ratio 20.0, CBC w Diff NO MAN DIFF REQ, RBC 3.14 L, MCV 80.8, MCH 26.8 L, MCHC 33.1, RDW 15.4 H, MPV 8.9, Gran % 68.5, Lymphocytes % 11.7 L, Monocytes % 8.8, Eosinophils % 9.9 H, Basophils % 1.1, Absolute Granulocytes 7.1 H, Absolute Lymphocytes 1.2, Absolute Monocytes 0.9 H, Absolute Eosinophils 1.0, Absolute Basophils 0.1 02/17/18 181: CBC w Diff NO MAN DIFF REQ, RBC 3.23 L, MCV 81.1, MCH 26.3 L, MCHC 32.4 L, RDW 15.6 H, MPV 8.7, Gran % 69.8, Lymphocytes % 13.5 L, Monocytes % 7.7, Eosinophils % 8.4 H, Basophils % 0.6, Absolute Granulocytes 7.4 H, Absolute Lymphocytes 1.4, Absolute Monocytes 0.8 H, Absolute Eosinophils 0.9, Absolute Basophils 0.1 02/17/18 0937: Anion Gap 12, Estimated GFR > 60, BUN/Creatinine Ratio 27.5 H, Vitamin B12 711, Folate 8.3 02/17/18 0624: CBC w Diff NO MAN DIFF REQ, RBC 3.02 L, MCV 80.3, MCH 26.3 L, MCHC 32.8 L, RDW 15.3 H, MPV 8.5, Gran % 72.5, Lymphocytes % 11.5 L, Monocytes % 8.4, Eosinophils % 7.0 H, Basophils % 0.6, Absolute Granulocytes 7.7 H, Absolute Lymphocytes 1.2, Absolute Monocytes 0.9 H, Absolute Eosinophils 0.7, Absolute Basophils 0.1 02/16/18 1844: CBC w Diff NO MAN DIFF REQ, RBC 2.80 L, MCV 79.9 L, MCH 25.7 L, MCHC 32.1 L, RDW 15.9 H, MPV 8.6, Gran % 79.7 H, Lymphocytes % 9.3 L, Monocytes % 6.5, Eosinophils % 3.8, Basophils % 0.7, Absolute Granulocytes 7.3 H, Absolute Lymphocytes 0.9 L, Absolute Monocytes 0.6, Absolute Eosinophils 0.3, Absolute Basophils 0.1 Vital Signs Date Time Temp Pulse Resp B/P B/P Pulse O2 O2 Flow FiO2 Mean Ox Delivery Rate 02/19 0645 97.7 80 20 110/50 99 Room Air 02/18 2208 98.5 74 18 120/68 97 03/27 1400 97.8 82 20 98/40 97 Room Air Intake & Output 02/19 1600 02/19 0800 02/19 0000 Intake Total 425 120 Output Total Balance 425 120 Intake, Oral 425 120 Number 1 Bowel Movements Patient 210 lb Weight
[2018-02-19 14:27] VITALS: BP 100/42
--- NOTE | 2018-02-19 14:28 | PN- Psychiatry ---
Assessment/Plan Impression: On 02/18/18 at 0634, the patient was observed wrapping a sheet around his neck, and then atempting to wrap the nurse call guthrie cord around his neck. He reported this was intentional, "Yes, I don't want to do it anymore, I want to ." The patient had not expressed suicidality, active or passive to the staff before , nor to his spouse, who stated that "He did not quite say it." This happened in the setting of admission for a stroke on 02/11/18, and hemicolectomy on 01/24/18 for recently diagnosed colon/reactal cancer. He has had chronic back pain since November 2017, when his spouse noted a change in the patient's mood. The patient's report of wrapping the sheet around his neck as an attempt to get warm is not credible. He states that he does not recall the event with the call guthrie cord. He does not have any explanation or recall for the statement he made. We had started escitalopram 5 mg PO daily yesterday, but the first dose did not occur until after suicide attempt. Suggestion: 1. Continue continuous safety monitor. 2. Continue escitalopram 5 mg PO daily. Monitor for increased suicidal ideation. 3. Geriatric psychiatry for evaluation and treatment. 4. After the patient is treated at the geriatric psychiatry facility and physical rehab, we would like the receiving facility to call to make an appointment at [facility], , [address] [place] [id number]. 5. The patient may not leave the hospital, other than a transfer to geriatric psychiatry, until cleared by psychiatry. A Physician's Emergency Certificate has been partially completed and left in the chart for completion by the attending physician. We will continue to follow along with you. Subjective Subjective: Alert and oriented. Endorses hopelessness and helplessness, denies worthlessness. He then change his mind and denied feelings of hopelessness. He denies suicidal or homicidal ideation. He denies that he made a suicide attempt yesterday, but does not recall the event with the call guthrie cord. He understands why we are concerned abut his actions and his statement. He reports poor sleep. Back pain present earlier in the morning ws not present at the time of our evaluation visit. Review of Systems Neurological/Psychological: Reports: depressed. Objective Last 24 Hrs of Vital Signs/I&O Vital Signs Date Time Temp Pulse Resp B/P B/P Pulse O2 O2 Flow FiO2 Mean Ox Delivery Rate 02/19 1211 120/50 02/19 1211 112/50 02/19 0645 97.7 80 20 110/50 99 Room Air 02/18 2208 98.5 74 18 120/68 97 Intake & Output 02/19 1600 02/19 0800 02/19 0000 Intake Total 425 120 Output Total Balance 425 120 Intake, Oral 425 120 Number 1 Bowel Movements Patient 210 lb Weight Physical Exam: Not performed Physical Exam General Appearance: awake, mild distress Neurologic/Psychiatric: awake, oriented x 3 Current Medications: Current Medications Sig/Natalee Start time Last Medication Dose Route Stop Time Status Admin Acetaminophen 500 MG Q6P PRN 02/19 1130 AC PO Amlodipine Besylate 5 MG DAILY 02/12 1000 AC 02/19 PO 1211 Aspirin Buffered 81 MG DAILY 02/17 1000 AC 02/19 PO 1336 Atorvastatin Calcium 40 MG 1700 02/12 0300 AC 02/18 PO 1745 Cyclobenzaprine HCl 10 MG TID PRN 02/12 1545 AC 02/18 PO 0314 Docusate Sodium 100 MG DAILY NEEDED PRN 02/13 1915 AC PO Enoxaparin Sodium 100 MG BID 02/18 1312 AC 02/19 SC 1011 Escitalopram Oxalate 5 MG DAILY 02/18 1000 AC 02/19 PO 1211 Gabapentin 200 MG TID 02/19 1120 AC 02/19 PO 1336 Lidocaine 1 PAT DAILY 02/13 1000 AC 02/19 EXT 1015 Losartan Potassium 100 MG DAILY 02/12 1000 AC 02/19 PO 1211 Morphine Sulfate 2 MG Q6-PRN PRN 02/12 1745 AC 02/19 IV 1345 Nitroglycerin 0.5 GM Q6 02/13 1200 AC 02/18 TOP 1745 Omeprazole 40 MG DAILY AC 02/17 0045 AC 02/19 PO 1212 Ondansetron HCl 4 MG ONCE ONE 02/19 0145 DC 02/19 IV 02/19 0146 0153 Oxycodone/ 1 TAB Q4P PRN 02/12 1745 AC 02/19 Acetaminophen PO 0803 Ramelteon 8 MG AT BEDTIME NEED.. 02/14 2115 AC 02/16 PO 2141 Senna 187 MG AT BEDTIME PRN 03/22 1915 AC 02/14 PO 0746 Senna/Docusate Sodium 2 TAB QPM 02/15 2200 AC 02/18 PO 2037 Simethicone 80 MG Q4P PRN 02/15 0300 AC 02/15 PO 0335 Results Last 24 Hrs of Labs/Mics: Laboratory Tests 02/19 0635 Hematology CBC w Diff NO MAN DIFF REQ WBC (4.8 - 10.8 /CUMM) 9.9 RBC (4.70 - 6.10 /CUMM) 3.10 L Hgb (14.0 - 18.0 G/DL) 8.1 L Hct (42 - 52 %) 24.9 L MCV (80.0 - 94.0 FL) 80.2 MCH (27.0 - 31.0 PG) 26.2 L MCHC (33.0 - 37.0 G/DL) 32.6 L RDW (11.5 - 14.5 %) 15.4 H Plt Count (130 - 400 /CUMM) 372 MPV (7.4 - 10.4 FL) 9.3 Gran % (42.2 - 75.2 %) 77.4 H Lymphocytes % (20.5 - 51.1 %) 10.6 L Monocytes % (1.7 - 9.3 %) 7.6 Eosinophils % (0 - 5 %) 3.6 Basophils % (0.0 - 2.0 %) 0.8 Absolute Granulocytes (1.4 - 6.5 /CUMM) 7.6 H Absolute Lymphocytes (1.2 - 3.4 /CUMM) 1.0 L Absolute Monocytes (0.10 - 0.60 /CUMM) 0.7 H Absolute Eosinophils (0.0 - 0.7 /CUMM) 0.4 Absolute Basophils (0.0 - 0.2 /CUMM) 0.1
[2018-02-19 16:34] LABS: ABSOLUTE BASOPHIL COUNT 0.1 /CUMM (0.0-0.2); ABSOLUTE EOSINOPHIL COUNT 0.3 /CUMM (0.0-0.7); ABSOLUTE LYMPH COUNT 1.3 /CUMM (1.2-3.4); ABSOLUTE MONOCYTE COUNT 0.8 /CUMM (0.10-0.60); BASOPHIL % 0.7 % (0.0-2.0); EOSINOPHIL % 3.3 % (0-5); GRANULOCYTE % 73.8 % (42.2-75.2); MEAN CORPUSCULAR HGB 25.7 PG (27.0-31.0); MEAN CORPUSCULAR HGB CONC 32.5 G/DL (33.0-37.0); MEAN CORPUSCULAR VOLUME 79.2 FL (80.0-94.0); MEAN PLATELET VOLUME 9.4 FL (7.4-10.4); PLATELET COUNT 366 /CUMM (130-400); RBC DISTRIBUTION WIDTH 15.4 % (11.5-14.5); RED BLOOD CELL CT 2.78 /CUMM (4.70-6.10); WHITE BLOOD CELL COUNT 9.4 /CUMM (4.8-10.8)
[2018-02-19 17:12] VITALS: BP 120/62
[2018-02-19 17:58] VITALS: BP 80/50
[2018-02-19 18:45] VITALS: BP 98/48
[2018-02-19 22:28] VITALS: BP 90/42
[2018-02-19 23:35] LABS: ABSOLUTE BASOPHIL COUNT 0.1 /CUMM (0.0-0.2); ABSOLUTE EOSINOPHIL COUNT 0.2 /CUMM (0.0-0.7); ABSOLUTE GRANULOCYTE CT 7.5 /CUMM (1.4-6.5); ABSOLUTE LYMPH COUNT 1.2 /CUMM (1.2-3.4); ABSOLUTE MONOCYTE COUNT 0.8 /CUMM (0.10-0.60); BASOPHIL % 0.8 % (0.0-2.0); EOSINOPHIL % 2.5 % (0-5); GRANULOCYTE % 76.6 % (42.2-75.2); HEMATOCRIT 24.5 % (42-52); MEAN CORPUSCULAR HGB 25.4 PG (27.0-31.0); MEAN CORPUSCULAR HGB CONC 31.4 G/DL (33.0-37.0); MEAN CORPUSCULAR VOLUME 80.9 FL (80.0-94.0); MEAN PLATELET VOLUME 8.6 FL (7.4-10.4); PLATELET COUNT 389 /CUMM (130-400); RBC DISTRIBUTION WIDTH 15.9 % (11.5-14.5); RED BLOOD CELL CT 3.02 /CUMM (4.70-6.10); WHITE BLOOD CELL COUNT 9.7 /CUMM (4.8-10.8)
[2018-02-20 00:17] VITALS: BP 108/44
--- NOTE | 2018-02-20 01:44 | CT SCAN REPORT ---
EXAMINATION: CT ANGIOGRAM ABDOMEN AND PELVIS CLINICAL INFORMATION: Hypotension, melena. Status post hemicolectomy. COMPARISON: January 23, 2018. Chest CTA from January 15, 2018. TECHNIQUE: Multiple axial images were obtained through the abdomen and pelvis following the administration of 95 mL of Optiray 320 intravenous contrast. Multiplanar reconstructions were performed. 3-D reconstructions will be performed in conjunction with the CTA. Following review by Interventional Radiology, an addendum will be issued. DLP: 861 mGy-cm FINDINGS: Within the pulmonary arteries of the lower lobes on image 1/822, there are bilateral filling defects partially visualized. There is patchy atelectasis present within the periphery of the left lower lobe. The visualized lung bases are otherwise clear. The visualized portions of the heart are unremarkable. The liver is of normal size and attenuation without intrahepatic biliary ductal dilation. Again identified is a low-attenuation lesion within the right lobe of the liver adjacent to the falciform ligament measuring approximately 4.8 cm on image 183/822. A normal gallbladder is identified. There is no wall thickening or discernible pericholecystic fluid. There is extensive lymphadenopathy identified within the region of the jessica and about the pancreatic head. Lymphadenopathy is identified on either side of the branches of the celiac artery. The largest conglomeration of lymph nodes measures approximately 8.7 x 6.1 cm. There is also retroperitoneal lymphadenopathy identified along both sides of the aorta, right greater than left, at the level of the renal diallo. This is not significantly changed from prior exam. An IVC filter is in place. The spleen, pancreas, adrenal glands are unremarkable. Both kidneys are of normal size and attenuation without hydronephrosis or nephrolithiasis. Following the administration of IV contrast, prompt symmetric nephrograms are displayed. No arterial injury is demonstrable. There is no evidence for contrast extravasation adjacent to the arteries of the abdomen or pelvis. There is no abdominal free fluid. The patient is status post hemicolectomy. Surgical chain sutures are noted within the mid transverse colon. There is no pelvic free fluid. The urinary bladder is unremarkable. There is neither pelvic nor inguinal lymphadenopathy. Within the left inguinal region, a subcutaneous 18 mm lesion is identified likely residential sales representative of a sebaceous cyst. Bone windows: Neither sclerotic nor lytic bone lesions are identified. IMPRESSION: Partially visualized within the lung bases are bilateral pulmonary arterial filling defects concerning for pulmonary emboli. No abdominal or pelvic free fluid. Extensive abdominal lymphadenopathy, unchanged from prior exam. Low-attenuation lesion within the liver suspicious for metastatic disease. Status post hemicolectomy. No arterial injury identified. No contrast extravasation. The aforementioned was communicated to Dr. Fox at 0140 hours. 3-D reconstructions will be performed in conjunction with the CTA. Following review by Interventional Radiology, an addendum will be issued.
--- NOTE | 2018-02-20 05:09 | Event Note ---
Event Note Event Note: Patient had another episode of melena with associated weakness and hypotension SBP ~80. Patient had been transfused 1u prbc for hemoglobin 7.1 and therapeutic lovenox discontinued earlier in the day. Given hypotension with ongoing bleeding decision was made to transfuse an additional unit of prbc plus a 500cc NS bolus with improved systolic blood pressure. Gastroenterology (Leda) was informed. He discussed possible colonoscopy for suspected bleeding from anastamosis with Dr. Patiño. Given the high risk for anastomotic dehiscence during colonoscopy, the abdomen was evaluated with CTA instead. There were no acute findings on imaging in the abdomen, CT redemonstrated bilateral pulmonary emboli. The patients antihypertensive medications were discontinued. If patient's continues to have bleeding, the risk/benefit of discontinuing aspirin should be discussed with hem-onc.
[2018-02-20 06:49] VITALS: BP 100/40
--- NOTE | 2018-02-20 07:21 | PN- Housestaff ---
Subjective Follow-up For: 1. Expressive aphasia with RUE weakness, improving 2. Acute ischemic stroke vs brain mets 3. Metastatic colonic adenocarcinoma s/p hemicolectomy 4. Elevated troponin likely demand ischemia 5. Bilateral DVT and PE s/p IVC filter on xarelto 6. Chronic blood loss anemia from colon cancer, stable 7. New onset Melena 02/16, off anticoagulation, s/p 3U PRBC total Tele-Events Since Last Visit: Off Subjective: Patient had another episode of melena w/o BRBPR, and received 1U PRBC. Patient was seen by me and Dr. Tompkins, appeared to be more spirited than previous days , acknowledged that the GI bleed could be from fresh anastomosis of his surgery. Patient denied any SI. Endorsed chronic back pain however no other specific complaint. Review of Systems Constitutional: Reports: see HPI. Objective Last 24 Hrs of Vital Signs/I&O Vital Signs Date Time Temp Pulse Resp B/P B/P Pulse O2 O2 Flow FiO2 Mean Ox Delivery Rate 02/20 0649 98.6 80 20 100/40 96 Room Air 02/20 0017 98.5 82 18 108/44 97 Room Air 02/19 2228 97.4 99 20 90/42 96 Room Air 02/19 2135 Room Air 02/19 1845 98.4 78 20 98/48 97 Room Air 02/19 1758 97.9 100 20 80/50 97 Room Air 02/19 1712 96 120/62 02/19 1427 97.9 82 20 100/42 96 Room Air 02/19 1211 120/50 02/19 1211 112/50 Intake & Output 02/20 1600 02/20 0800 02/20 0000 Intake Total 200 700 Output Total 800 Balance -600 700 Intake, Blood 200 Product Intake, Oral 200 500 Number 1 1 Bowel Movements Output, Urine 800 Physical Exam General Appearance: Alert, Oriented X3, Cooperative Cardiovascular: Regular Rate Lungs: Clear to Auscultation, Normal Air Movement Abdomen: Soft, No Tenderness, incision clean Neurological: Normal Speech Extremities: No Edema, Normal Pulses Current Medications: Current Medications Sig/Natalee Start time Last Medication Dose Route Stop Time Status Admin Acetaminophen 500 MG Q6P PRN 02/19 1130 AC PO Amlodipine Besylate 5 MG DAILY 02/12 1000 DC 02/19 PO 1211 Aspirin Buffered 81 MG DAILY 02/17 1000 AC 02/19 PO 1336 Atorvastatin Calcium 40 MG 1700 02/12 0300 AC 02/19 PO 1705 Cyclobenzaprine HCl 10 MG TID PRN 02/12 1545 AC 02/18 PO 0314 Docusate Sodium 100 MG DAILY NEEDED PRN 02/13 1915 AC PO Enoxaparin Sodium 100 MG BID 02/18 1312 DC 02/19 SC 1011 Escitalopram Oxalate 5 MG DAILY 02/18 1000 AC 02/19 PO 1211 Gabapentin 200 MG TID 02/19 1120 AC 02/19 PO 2121 Lidocaine 1 PAT DAILY 02/13 1000 AC 02/19 EXT 1015 Losartan Potassium 100 MG DAILY 02/12 1000 DC 02/19 PO 1211 Morphine Sulfate 2 MG Q6-PRN PRN 02/12 1745 AC 02/20 IV 0817 Nitroglycerin 0.5 GM Q6 02/13 1200 DC 02/19 TOP 1705 Omeprazole 40 MG DAILY AC 02/17 0045 AC 02/20 PO 0634 Oxycodone/ 1 TAB Q4P PRN 02/12 1745 AC 02/20 Acetaminophen PO 0127 Ramelteon 8 MG AT BEDTIME NEED.. 02/14 2115 AC 02/16 PO 2141 Senna 187 MG AT BEDTIME PRN 02/13 1915 AC 02/14 PO 0746 Senna/Docusate Sodium 2 TAB QPM 02/15 2200 AC 02/19 PO 2121 Simethicone 80 MG Q4P PRN 02/15 0300 AC 02/15 PO 0335 Sodium Chloride 500 ML BOLUS ONE 02/19 2245 DC 02/19 IV 02/19 2344 2243 Last 24 Hrs of Lab/[place] Results Last 24 Hrs of Labs/Mics: Laboratory Tests 02/20/18 0737: CBC w Diff NO MAN DIFF REQ, RBC 3.08 L, MCV 80.6, MCH 26.4 L, MCHC 32.7 L, RDW 15.8 H, MPV 8.9, Gran % 71.2, Lymphocytes % 15.4 L, Monocytes % 10.5 H, Eosinophils % 2.1, Basophils % 0.8, Absolute Granulocytes 6.8 H, Absolute Lymphocytes 1.5, Absolute Monocytes 1.0 H, Absolute Eosinophils 0.2, Absolute Basophils 0.1 02/19/18 2304: CBC w Diff NO MAN DIFF REQ, RBC 3.02 L, MCV 80.9, MCH 25.4 L, MCHC 31.4 L, RDW 15.9 H, MPV 8.6, Gran % 76.6 H, Lymphocytes % 12.3 L, Monocytes % 7.8, Eosinophils % 2.5, Basophils % 0.8, Absolute Granulocytes 7.5 H, Absolute Lymphocytes 1.2, Absolute Monocytes 0.8 H, Absolute Eosinophils 0.2, Absolute Basophils 0.1 02/19/18 1445: CBC w Diff NO MAN DIFF REQ, RBC 2.78 L, MCV 79.2 L, MCH 25.7 L, MCHC 32.5 L, RDW 15.4 H, MPV 9.4, Gran % 73.8, Lymphocytes % 13.8 L, Monocytes % 8.4, Eosinophils % 3.3, Basophils % 0.7, Absolute Granulocytes 7.0 H, Absolute Lymphocytes 1.3, Absolute Monocytes 0.8 H, Absolute Eosinophils 0.3, Absolute Basophils 0.1 Assessment/Plan Assessment: Mr. Salter is a 67-year-old unfortunate male with past medical history significant for hypertension, hyperlipidemia, alcohol induced pancreatitis, osteoarthritis, bilateral lower extremity DVT, bilateral unprovoked pulmonary embolism on Xarelto 15 twice daily, colon cancer status post resection presented to the emergency department with chief complaint of change in speech since 02/11 8 AM, and RUE stiffness found to have a CVA. P: #Melena 2/2 anastomosis from hemicolectomy H/H dropped 8.2 -> 7.2 -> 8.5 ->7.1 -> 8.1 on latest lab s/p total 3U pRBC on & 02/19. Will continue monitor qd. - Discontinued Lovenox 1mg/kg q12 on 02/19 due to melena and dropping H/H. Will only continue ASA 81 and discontinued until stablized on bleeding. -GI consult appreciated, will not repeat colonoscopy. Patient was kept NPO overnight and will now revert back to clear liquid diet as no more episode of melena #Suicidal ideation/Psych issues/Depression/Anxiety - Appreciated Psych consult, will continue lexapro 5mg po qd for depression/ anxiety, and titrate further when patient was sent for STR. - pending discharge to [facility]/psych unit rather than STR. - Continued ramelteon for insomnia - Discontinued Xanax to avoid exacerbating delirium in the elderly, and discontinued Zolpidem. - May consider hydroxyzine 25-50 mg by mouth at bedtime, or trazodone 50 mg at bedtime as needed for insomnia. - No Na abnormality on latest BEP. No QTc prolongation on EKG. #CVA: MRI Head: 1. There are multiple areas of restricted diffusion in the cerebellar hemispheres in the bilateral frontoparietal regions, most extensive on the right superiorly, consistent with areas of infarction. There is no evidenceof hemorrhagic transformation. 2. There is diffuse volume loss and there are chronic microvascular ischemicchanges. MRI Spine: 1. Markedly suboptimal study, and only motion degraded sagittal images were obtained. 2. There is spondylosis at L2-L3, L4-L5 and L5-S1 as described above. Theredoes not appear to be central stenosis. * Continue neuro checks and fall precautions * Continue aspirin and Lipitor * Recent echo in December 2017 showed ejection fraction 55% with impaired left ventricular relaxation * Cardio consult recommended adding NG ointment 0.5gm q6. * Continue cardiology neurology recommendations * PTOT recommended STR, however now would plan to DC to [facility]/psych prior STR. * HbA1c 5.1 and lipid panel (WNL) #Elevated troponin, demand ischemia Troponins 0.42, 0.26, 0.32 Echocardiogram: 1. Limited study due to patient agitation. 2. Normal EF of 55% . * Appreciate cardiology recommendations * Continue aspirin and Lipitor as above #Stage IV colon cancer with liver metastasis: During his last admission, Endoscopy revealed submucosal nodule second portion of the duodenum, scattered gastric erosions with no stigmata of bleeding, and non-obstructing schtazki's ring. Colonoscopy revealed an ileocecal valve mass which pathology subsequently showed to be invasive moderately to poorly differentiated adenocarcinoma. Oncology was consulted and recommended CT abdomen/pelvis that revealed metastatic disease with large mesenteric lymph nodes, retroperitoneal and upper abdominal lymph nodes, and suspected hepatic metastases with no evidence of bowel obstruction. Underwent hemicolectomy and he has been following up with oncologist as an outpatient to start chemotherapy pending resolution of above. #Bilateral Lower Extremity DVTs and Bilateral PE s/p IVC Filter placement: Patient was recently admitted for bilateral lower extremity DVTs and PE. Because he needed to have a hemicolectomy, an IVC filter was placed by vascular surgery. * original plan was xaralto 15 mg twice daily for 1 more week and then start 20 mg daily, however now on hold as above due to GI bleed. - Lovenox 100mg SC BID discontinued as above. #Hypertension * Held amlodipine and losartan on 02/20 overnight due to GI bleed/melena as above. Pending restart once stablized on h/h. #Chronic back pain * Continue pain control #full code #DVT prophylaxis none 2/2 GI bleed Problem List: 1. History of right hemicolectomy 2. Anemia 3. Adenocarcinoma of colon metastatic to liver 4. CVA (cerebral vascular accident) Pain Ratin Pain Location: chronic back pain Pain Goal: Pain 7 or less Pain Plan: see AP Tomorrow's Labs & Rationales: CBC/BEP
--- NOTE | 2018-02-20 07:22 | PN- Gastroenterology ---
Assessment/Plan GI Assessment/Recommendations: Unfortunate 67 y/o male, HTN, HLD, hx EtOH pancreatitis, ex-smoker, DJD, post recent 01/15/18: B/L LE infrapopliteal DVT & large B/L PE (verified by B/L LE doppler & CTA chest ; d-Dimer [id number] then)-> placed on Xarelto. 01/17/18: elevated CEA 64.8, nl AFP 2.2.The patient subsequently had 01/22/18: EGD to D3/baseline colonoscopy per Dr. New (for anemia, GI bleeding, NSAID use, elevated CEA, & hypercoaguable state)- gastric erosions with antral bxs HP-neg, submucosal nodule D2- bxs nl duodenal mucosa & submucosa, nonobstructing Schatzki ring with Z line at 43 cm; large fungating mass at ICV- SPOT tattoo/bxs moderate to poorly differentiated adeno CA, no abnormal loss of DNA mismatch repair, 1 cm right colon lipoma, & mixed grade 2 hemorrhoids. There was no mention of diverticula on the colonoscopy report, however preoperative CT showed moderate sigmoid diverticula & suggestion of liver metastases. The colon lesion on CT appeared to be at the hepatic flexure. 01/23/18: *IVC filter placed, as patient was at risk for GI bleeding. Having stated that, the patient obviously was hypercoagulable from underlying malignancy & A/C tx was advised for 3 months, per Heme/Onc, based on the large B/L PE (which existed prior to the IVC filter) & B/L LE DVT. 01/24/18: Extended right hemicolectomy, removal of 5 cm TI, & open wedge bx of liver mass, per Dr. Patiño- Colon pathology- poorly differentiated adeno CA extending into pericolonic adipose tissue, 2 of 13 nodes positive, no loss of DNA mismatch repair, submucosal lipoma; liver bx- met colon Ca (*consistent with Stage 4/Asher D colon Ca). The patient had not yet had a Port-A-Cath placed for CTX, which had not yet been started. He is a full code. The patient was admitted to [facility] 02/12/18 with dysarthria, slurred speech, and right-sided weakness, clinically consistent with acute left MCA ischemic stroke. He had multiple imaging studies per neurology (*see imaging section). He also had a troponin bump, felt to probably be demand ischemia. : Echocardiogram- normal LVEF 55%, without regional wall motion abnormality or thrombus. No PFO/ASD. There is no history of A. fib. *He was on outpatient Xarelto, started approximately 1 month prior, at the time of the B/L LE DVT & large B/L PE. *ASA 81 mg daily was added to the Xarelto at the time of his 02/12 readmission for CVA/demand ischemia. Over the past 1-2 months, the has been seen by numerous disciplines, including oncology, GI, surgery, vascular, cardiology, & neurology. He was getting PT/OT. The patient's Hgb since 01/22/18 has been in the low-to-mid 8 range. He had never been transfused. 02/11/18: PT 24.9, INR 2.27, PTT 29 (albeit on Xarelto), nl LFTs with alb 3.5, glob 3.2, *troponin 0.42-> 0.36-> 0.32. 02/12/18: Admission WBC 12.6 (76% gran/10 gran Ab), *H/H 8.6/26.9, MCV 81.1, RDW 15.4, PLT 476, BUN/Cr 14/0.8, GFR > 60, Na 140, K 4.0, HCO3 25, AG 14, nl FT4 with nl TSH 1.06 The patient had an episode of unwitnessed rectal bleeding earlier this evening of 02/16/18, & his 02/16/18: Labs- WBC 9.1, *H/H 7.2/22.3, MCV 79.9, RDW 15.9, PLT 394, prompting the request for a GI consult. He was hemodynamically stable and afebrile, with O2 sat RA 97%. He was neither hypotensive nor tachycardic. As per my discussion with the medical house staff a short while ago, Xarelto was held, but baby ASA was continued. He was not on NSAIDs. According to the patient's RN, he was on the toilet bowl and was found to have blood in the toilet water, along with brown stool and urine. The patient will only answer limited questions. He denied any abdominal pain, rectal pain, diarrhea, constipation, obstipation, or incomplete evacuation. He had no upper GI symptoms, hematemesis, or melena. He denied any chest pain, shortness of breath, or additional neurologic symptoms, compared to when he was admitted 02/12/18. He stated his sister had colon CA. The patient has a 1:1 sitter. The patient had been confused, but is now O x 3. His intake has been poor. He was previously lethargic and irritable. He was previously found lying in bed by the hospitalist service with only his underwear on. The patient was extremely depressed. He claimed he had no living will or POA (verified by his , whom I called), and "wanted to ". He was in the process of being transfused. He had passed a swallow evaluation on 02/12/18. *The patient's 01/15/18: B/L LE DVT & large B/L PE most probably were from a hypercoagulable state, related to his stage IV colon Ca. *He was placed on Xarelto at that time. Colon cancer was subsequently diagnosed as above, by the relatively recent 01/22/18: EGD/baseline colonoscopy. 01/23/18: IVC filter placed. However, although this will potentially prevent further clots from going to the lungs, the large B/L PE preceded this & ideally, Heme Onc wanted A/C tx continued for 3 months, if possible. Additionally, the patient was just readmitted 02/12/18 for embolic ischemic strokes, again presumably hypercoagulable, on the basis of metastatic colon CA & had a mild troponin bump, felt to be from demand ischemia. 02/13/18: Echo- normal LVEF without wall motion abnormalities, thrombus, PFO or ASD. The patient has not yet had a Port-A-Cath placed to start CTX, due to his other numerous issues. His abdominal wounds were still healing. *I had a long discussion with the patient's , Rowena Salter, on at 11:20 PM, at cell: [phone], regarding the above. She is aware of the fact that her is stuck in a precarious position. He is at risk for further thrombotic/embolic events off of A/C therapy, but on the other hand, he has subacute on chronic anemia, and was bleeding on the Xarelto. The patient could be oozing from his recent 01/24/18: ileocolonic anastomosis. The colonic mucosa was recently cleared, as above. There is a possibility, albeit less likely, that he was having a slow diverticular bleed. The above clinically did not appear to be a rapid transit UGI bleed, and he recently had an EGD, as well. *Furthermore, at the moment, I would not advocate a repeat colonoscopy, as his recent wounds and anastomosis could dehisce. Additionally, I would be leery of performing a colonoscopy on a patient post recent CVA. The patient and his were okay with holding the Xarelto at present. My extensive signed GI progress note of 02/17/18, done one day after my GI consult was completely erased from the computer system, for unknown reasons! The medical records department was notified, when I became aware of this on 02/20/18. There were able to retrieve it. 02/17/18: WBC 10.7, H/H 7.9/24.3 (post 1u PRBC on 02/16/18), PLT 360, BUN/Cr 22/ 0.8, GFR > 60, Na 138, K 3.9, HCO3 26, AG 12; B12 711, folate 8.3 (*both obtained after transfx). *As of 02/17/18, the patient had no recurrent rectal bleeding. There was no abdominal pain. He was on clears po. Apparently, he was previously on a pured diet, post CVA, but was interested in attempting to eat more. He was hemodynamically stable and afebrile, with O2 sat RA 98%. He remained on baby ASA , with Xarelto on hold, per my discussion with oncology. He remains at risk for recurrent thrombotic events, with stage IV colon Ca & liver mets. As per my discussion with oncology, options could include switching the patient to Lovenox in another 24 hrs if stable, which is probably a safer alternative to resuming Xarelto. The patient was seen by psychiatry 02/17/18, & Lexapro was advised, with suggestion to hold Ambien & Xanax, & to continue Ramelteon for insomnia. He seemed less irritable today, but was still depressed. I had last seen the patient 02/17/18 and then signed off from a GI perspective. His records were reviewed. Since then, the patient had suicidal ideation, and was found with bedsheets around his neck. He was seen by psychiatry. He has a 1:1 sitter. He was very depressed. I was called a little after 11 PM on , as the patient developed melena/burgundy BM x 2, and multifactorial hypotension (SBP 80), some of which was from his antihypertensive medications & NTP. The patient previously bled on Xarelto, which had been stopped a few days ago. He was continued on baby aspirin. Lovenox was started 02/18/18. His pretransfusion Hgb had dropped from 8.1 to 7.1. He was given IV NS & 2 units PRBC overnight, and his BP stabilized. His antihypertensive agents were held. His Hgb improved to 7.7, in between units (await repeat). I spoke with the medical house staff late last evening, and Lovenox was stopped. I advised a CTA of the abdomen. Again, the patient had a recent 01/22/18: EGD/colonoscopy by Dr. eNw, where the diagnosis of colon cancer was made. *The patient was undoubtedly oozing from his anastomotic site, post right hemicolectomy, on A/C therapy, which was too fresh to re-instrument via colonoscopy, with increased risk of dehiscence. I contacted Dr. Patiño late last evening, 02/19/18,who concurred. I also spoke with Dr. Fortune, of heme/oncology, this morning, , who agreed that A/C therapy would have to be held indefinitely, despite history of B/L LE DVT, B/L PE & CVA (IVC filter placed after PE), but this would have to be readdressed down the road, perhaps after the ICA anastomosis heals. Baby aspirin (ECASA 81 mg daily), will carefully be continued in view of recent CVA. He remained on prophylactic Omeprazole 40 mg po daily. The patient remained a full code, despite his numerous comorbidities and stage IV colon Ca with liver metastases. As his BP stabilized, he was not transferred to the ICU. He had been made NPO. *As of 02/20/18, BP 100/40, P 80, RR 20, T 98.6, O2 sat RA 96%. There was no further melena. The patient had no specific GI complaints. He denied any chest pain or shortness of breath. Neurologically, he was slowly progressing. He appeared less depressed. 02/20/18: *CT ANGIOGRAM ABDOMEN AND PELVIS- IMPRESSION: Partially visualized within the lung bases are bilateral pulmonary arterial filling defects concerning for pulmonary emboli. No abdominal or pelvic free fluid. Extensive abdominal lymphadenopathy, unchanged from prior exam. Low-attenuation lesion within the liver suspicious for metastatic disease. Status post hemicolectomy. No arterial injury identified. No contrast extravasation. The aforementioned was communicated to Dr. Fox at 0140 hours. 3-D reconstructions will be performed in conjunction with the CTA. Following review by Interventional Radiology, an addendum will be issued. DICTATED BY: Fco Espinoza MD DATE/TIME DICTATED:02/20/18 01202/18/18: BUN/Cr 16/0.8, nl lytes, 02/19/18: WBC 9.7, H/H7.7/24.5, PLT 389 *As of 02/20/18, the patient was improved after IV NS, holding anti-HTN meds, & transfx 2u PRBC. Repeat CBC is pending. Most likely, the melena was from oozing from the ICA postop. The anastomosis is too fresh to instrument with repeat colonoscopy, for fear of dehiscence. 02/20/18: Preliminary CTA- negative. This does not appear to be a rapid transit upper GI bleed. He had a simultaneous EGD at the time of the 01/22/18 colonoscopy, which was essentially clean. The patient bled on Xarelto and re-bled on Lovenox. He is too high risk for A/C therapy at the moment, and oncology agrees. *SUGGEST: Clears po & advance diet as tolerated. Await follow-up CBC. Supplemental O2 as needed. T&C 2u PRBC. Keep Hgb > 8 (probable underlying ASHD). 2 large bore IV. Check CBC Q12h for now. Consider rechecking PT PTT. May carefully continue ECASA 81 mg daily. *Continue empiric prophylactic PPI daily. *Carefully hold A/C therapy for now. (*A/C tx can be reconsidered down the road by oncology, once the ICA heals ). The patient has an IVC filter, but the large bilateral PE occurred prior to this. DVT prophylaxis with mechanical ALPS. Continue OT/PT. Eventual bone scan per oncology. Pathology is still pending, regarding KRAS and BRAF status. Eventual Port-A-Cath placement for initiation of CTX (as patient allows), once patient hopefully stabilizes. Treatment of depression, which is understandable. *Code status remains full code. 1:1 sitter. The medical house staff will check the final reading of the 02/20/18: CTA AP by IR. *At the moment, there is nothing therapeutically to do from a GI perspective, for fear of wound dehiscence. The case was discussed with the medical house staff again, & with Dr. Fortune & Dr. Patiño. I also again called the patient's , Rowena Salter, and the case was discussed with her in detail. Please call GI if any new issues arise. *Further inpatient GI follow-up as needed. Problem List: 1. Adenocarcinoma of colon metastatic to liver 2. Gastrointestinal bleeding 3. Anemia 4. Diverticulosis of colon 5. Pulmonary emboli 6. DVT (deep venous thrombosis) 7. Elevated troponin 8. Demand ischemia 9. CVA (cerebral vascular accident) 10. Expressive aphasia 11. Family history of colon cancer 12. History of right hemicolectomy Subjective Subjective: I had last seen the patient 02/17/18 and then signed off from a GI perspective. His records were reviewed. Since then, the patient had suicidal ideation, and was found with bedsheets around his neck. He was seen by psychiatry. He has a 1:1 sitter. He was very depressed. I was called a little after 11 PM on , as the patient developed melena/burgundy BM x 2, and multifactorial hypotension (SBP 80), some of which was from his antihypertensive medications & NTP. The patient previously bled on Xarelto, which had been stopped a few days ago. He was continued on baby aspirin. Lovenox was started 02/18/18. His pretransfusion Hgb had dropped from 8.1 to 7.1. He was given IV NS & 2 units PRBC overnight, and his BP stabilized. His antihypertensive agents were held. His Hgb improved to 7.7, in between units (await repeat). I spoke with the medical house staff late last evening, and Lovenox was stopped. I advised a CTA of the abdomen. Again, the patient had a recent 01/22/18: EGD/colonoscopy by Dr. New, where the diagnosis of colon cancer was made. *The patient was undoubtedly oozing from his anastomotic site, post right hemicolectomy, on A/C therapy, which was too fresh to re-instrument via colonoscopy, with increased risk of dehiscence. I contacted Dr. Patiño late last evening, 02/19/18,who concurred. I also spoke with Dr. Fortune, of heme/oncology, this morning, , who agreed that A/C therapy would have to be held indefinitely, despite history of B/L LE DVT, B/L PE & CVA (IVC filter placed after PE), but this would have to be readdressed down the road, perhaps after the ICA anastomosis heals. Baby aspirin (ECASA 81 mg daily), will carefully be continued in view of recent CVA. He remained on prophylactic Omeprazole 40 mg po daily. The patient remained a full code, despite his numerous comorbidities and stage IV colon Ca with liver metastases. As his BP stabilized, he was not transferred to the ICU. He had been made NPO. *As of 02/20/18, BP 100/40, P 80, RR 20, T 98.6, O2 sat RA 96%. There was no further melena. The patient had no specific GI complaints. He denied any chest pain or shortness of breath. Neurologically, he was slowly progressing. He appeared less depressed. 02/20/18: *CT ANGIOGRAM ABDOMEN AND PELVIS- IMPRESSION: Partially visualized within the lung bases are bilateral pulmonary arterial filling defects concerning for pulmonary emboli. No abdominal or pelvic free fluid. Extensive abdominal lymphadenopathy, unchanged from prior exam. Low-attenuation lesion within the liver suspicious for metastatic disease. Status post hemicolectomy. No arterial injury identified. No contrast extravasation. The aforementioned was communicated to Dr. Fox at 0140 hours. *3-D reconstructions will be performed in conjunction with the CTA. Following review by Interventional Radiology, an addendum will be issued. DICTATED BY: Fco Espinoza MD DATE/TIME DICTATED:02/20/18 / 0122 02/18/18: BUN/Cr 16/0.8, nl lytes, 02/19/18: WBC 9.7, H/H7.7/24.5, PLT 389 Review of Systems: Full 14 point ROS otherwise noncontributory, and as above. Review of Systems Constitutional: Reports: weakness. Denies: chills, diaphoresis, fever, malaise, unexplained weight loss. EENTM: Denies: blurred vision, double vision, visual changes, eye pain, eye drainage, eye tearing, icterus, ear discharge, ear pain, ear redness, hearing changes, nasal congestion, epistaxis, nasal pain, throat pain, throat swelling, mouth pain, tooth pain. Cardiovascular: Denies: chest pain, edema, orthopena, palpitations, peripheral edema, syncope. Respiratory: Denies: cough, hemoptysis, orthopnea, short of breath, sputum production, stridor, wheezing. Gastrointestinal: Reports: bloody stool (post menelena). Denies: abdominal pain, bloating, constipation, diarrhea, distention, bowel incontinence, melena, nausea, changes in stool, vomiting, steatorrhea. Genitourinary: Denies: discharge, dysuria, frequency, hematuria, hesitation, nocturia, pain, urgency. Musculoskeletal: Denies: back pain, gout, joint pain, joint swelling, muscle pain, muscle stiffness, neck pain. Skin: Denies: cysts, change in skin color, change in hair/nails, dryness, erythema, jaundice, lesions, lymphangitis, lumps, moles, rash. Neurological/Psychological: Reports: depressed, emotional problems, weakness (on right, post CVA, dysarthria ). Denies: anxiety, ataxia, cognitive dysfunction, confusion, dementia, headache, numbness, paresthesia, pre-existing deficit, petit mal seizures, tingling, tremors, tonic-clonic seizures, unable to move lower ext, unable to move upper ext, other. Hematologic/Endocrine: Denies: bruising, bleeding, polyuria, polydipsia. Immunologic/Allergic: Denies: splenectomy, HIV/AIDS, lymphadenopathy. All Other Systems: Reviewed and Negative Objective Vital Signs and I&Os Vital Signs Date Time Temp Pulse Resp B/P B/P Pulse O2 O2 Flow FiO2 Mean Ox Delivery Rate 02/20 0649 98.6 80 20 100/40 96 Room Air 02/20 0017 98.5 82 18 108/44 97 Room Air 02/19 2228 97.4 99 20 90/42 96 Room Air 02/19 2135 Room Air 02/19 1845 98.4 78 20 98/48 97 Room Air 02/19 1758 97.9 100 20 80/50 97 Room Air 02/19 1712 96 120/62 02/19 1427 97.9 82 20 100/42 96 Room Air 02/19 1211 120/50 02/19 1211 112/50 Intake & Output 02/20 1600 02/20 0400 02/19 1600 02/19 0400 02/18 1600 02/18 0400 Intake Total 200 700 965 120 820 240 Output Total 800 Balance -600 700 965 120 820 240 Intake, Blood 200 Product Intake, IV 20 Intake, Oral 200 500 965 120 800 240 Number 1 1 2 Bowel Movements Output, Urine 800 Patient 210 lb 207 lb Weight Weight Bed scale Measurement Method Physical Exam: Well-developed, well-nourished, depressed male, in NAD, no longeragitated. Has 1 :1 sitter. Sclera anicteric. Conjunctiva slightly pale. Oropharynx clear. No oral thrush. No aphthous ulcers. There is no adenopathy, thyromegaly, or JVD. No peripheral stigmata of inflammatory bowel disease or chronic liver disease on exam. No spiders on the anerior chest wall. No gynecomastia. No CVA tenderness. Lungs: clear to A&P, with slight decreased BS at the bases B/L. No wheezing, rales, or rhonchi. Heart exam: regular rate rhythm, S1 and S2, without any murmur. Abdominal exam: normal bowel sounds, soft belly, nontender, without guarding or rebound. Clean midline wound. No mass. No organomegaly. No fluid shift. No pulsatile mass. No epigastric bruit. Digital rectal exam by myself : Brown stool mixed with BRB, obviously OB positive, no masses, normal sphincter tone, no external hemorrhoids, no fissure, smooth enlarged prostate ( not repeated on 02/20/18). Extremities: without C, C, or E. No palpable cords. Mild DJD, without acute arthropathy. No rash. Old tattoos. No palmar erythema. No Dupuytren's contractures. DP 1+ bilaterally. Right handed. Mild dysarthria & verbal apraxia (*improving), CN II-XII essentially intact, except for mild R VII. Motor RUE 3-4/5, RLE 4-5/5. Motor 5/5 on left. DTR 2+ on left, 2-3+ on right. No clonus. Alert and oriented x 3. Less depressed. No longer agitated. No tremor. No asterixis. Current Medications: Current Medications Sig/Natalee Start time Last Medication Dose Route Stop Time Status Admin Acetaminophen 500 MG Q6P PRN 02/19 1130 AC PO Amlodipine Besylate 5 MG DAILY 02/12 1000 DC 02/19 PO 1211 Aspirin Buffered 81 MG DAILY 02/17 1000 AC 02/19 PO 1336 Atorvastatin Calcium 40 MG 1700 02/12 0300 AC 02/19 PO 1705 Cyclobenzaprine HCl 10 MG TID PRN 02/12 1545 AC 02/18 PO 0314 Docusate Sodium 100 MG DAILY NEEDED PRN 02/13 191 AC PO Enoxaparin Sodium 100 MG BID 02/18 1312 DC 02/19 SC 1011 Escitalopram Oxalate 5 MG DAILY 02/18 1000 AC 02/19 PO 1211 Gabapentin 200 MG TID 02/19 1120 AC 02/19 PO 2121 Lidocaine 1 PAT DAILY 02/13 1000 AC 02/19 EXT 1015 Losartan Potassium 100 MG DAILY 02/12 1000 DC 02/19 PO 1211 Morphine Sulfate 2 MG Q6-PRN PRN 02/12 1745 AC 02/19 IV 2122 Nitroglycerin 0.5 GM Q6 02/13 1200 DC 02/19 TOP 1705 Omeprazole 40 MG DAILY AC 02/17 0045 AC 02/20 PO 0634 Oxycodone/ 1 TAB Q4P PRN 02/12 1745 AC 02/20 Acetaminophen PO 0127 Ramelteon 8 MG AT BEDTIME NEED.. 02/14 2115 AC 02/16 PO 2141 Senna 187 MG AT BEDTIME PRN 02/13 1915 AC 02/14 PO 0746 Senna/Docusate Sodium 2 TAB QPM 02/15 2200 AC 02/19 PO 2121 Simethicone 80 MG Q4P PRN 02/15 0300 AC 02/15 PO 0335 Sodium Chloride 500 ML BOLUS ONE 02/195 DC 02/19 IV 02/19 4110 6363 Results Pertinent Lab Results: Laboratory Tests 02/20 02/19 0737 2304 Hematology CBC w Diff Pending NO MAN DIFF REQ WBC (4.8 - 10.8 /CUMM) Pending 9.7 RBC (4.70 - 6.10 /CUMM) Pending 3.02 L Hgb (14.0 - 18.0 G/DL) Pending 7.7 L Hct (42 - 52 %) Pending 24.5 L MCV (80.0 - 94.0 FL) Pending 80.9 MCH (27.0 - 31.0 PG) Pending 25.4 L MCHC (33.0 - 37.0 G/DL) Pending 31.4 L RDW (11.5 - 14.5 %) Pending 15.9 H Plt Count (130 - 400 /CUMM) Pending 389 MPV (7.4 - 10.4 FL) Pending 8.6 Gran % (42.2 - 75.2 %) 76.6 H Lymphocytes % (20.5 - 51.1 %) 12.3 L Monocytes % (1.7 - 9.3 %) 7.8 Eosinophils % (0 - 5 %) 2.5 Basophils % (0.0 - 2.0 %) 0.8 Absolute Granulocytes (1.4 - 6.5 /CUMM) 7.5 H Absolute Lymphocytes (1.2 - 3.4 /CUMM) 1.2 Absolute Monocytes (0.10 - 0.60 /CUMM) 0.8 H Absolute Eosinophils (0.0 - 0.7 /CUMM) 0.2 Absolute Basophils (0.0 - 0.2 /CUMM) 0.1 02/19 02/19 1445 0828 Hematology CBC w Diff NO MAN DIFF REQ NO MAN DIFF REQ WBC (4.8 - 10.8 /CUMM) 9.4 9.9 RBC (4.70 - 6.10 /CUMM) 2.78 L 3.10 L Hgb (14.0 - 18.0 G/DL) 7.1 *L 8.1 L Hct (42 - 52 %) 22.0 L 24.9 L MCV (80.0 - 94.0 FL) 79.2 L 80.2 MCH (27.0 - 31.0 PG) 25.7 L 26.2 L MCHC (33.0 - 37.0 G/DL) 32.5 L 32.6 L RDW (11.5 - 14.5 %) 15.4 H 15.4 H Plt Count (130 - 400 /CUMM) 366 372 MPV (7.4 - 10.4 FL) 9.4 9.3 Gran % (42.2 - 75.2 %) 73.8 77.4 H Lymphocytes % (20.5 - 51.1 %) 13.8 L 10.6 L Monocytes % (1.7 - 9.3 %) 8.4 7.6 Eosinophils % (0 - 5 %) 3.3 3.6 Basophils % (0.0 - 2.0 %) 0.7 0.8 Absolute Granulocytes (1.4 - 6.5 /CUMM) 7.0 H 7.6 H Absolute Lymphocytes (1.2 - 3.4 /CUMM) 1.3 1.0 L Absolute Monocytes (0.10 - 0.60 /CUMM) 0.8 H 0.7 H Absolute Eosinophils (0.0 - 0.7 /CUMM) 0.3 0.4 Absolute Basophils (0.0 - 0.2 /CUMM) 0.1 0.1 02/18 02/17 0615 1815 Chemistry Sodium (137 - 145 mmol/L) 139 Potassium (3.5 - 5.1 mmol/L) 3.9 Chloride (98 - 107 mmol/L) 98 Carbon Dioxide (22 - 30 mmol/L) 27 Anion Gap (5 - 16) 14 BUN (9 - 20 mg/dL) 16 Creatinine (0.7 - 1.2 mg/dL) 0.8 Estimated GFR (>60 ml/min) > 60 BUN/Creatinine Ratio (7 - 25 %) 20.0 Hematology CBC w Diff NO MAN DIFF REQ NO MAN DIFF REQ WBC (4.8 - 10.8 /CUMM) 10.4 10.6 RBC (4.70 - 6.10 /CUMM) 3.14 L 3.23 L Hgb (14.0 - 18.0 G/DL) 8.4 L 8.5 L Hct (42 - 52 %) 25.4 L 26.2 L MCV (80.0 - 94.0 FL) 80.8 81.1 MCH (27.0 - 31.0 PG) 26.8 L 26.3 L MCHC (33.0 - 37.0 G/DL) 33.1 32.4 L RDW (11.5 - 14.5 %) 15.4 H 15.6 H Plt Count (130 - 400 /CUMM) 357 399 MPV (7.4 - 10.4 FL) 8.9 8.7 Gran % (42.2 - 75.2 %) 68.5 69.8 Lymphocytes % (20.5 - 51.1 %) 11.7 L 13.5 L Monocytes % (1.7 - 9.3 %) 8.8 7.7 Eosinophils % (0 - 5 %) 9.9 H 8.4 H Basophils % (0.0 - 2.0 %) 1.1 0.6 Absolute Granulocytes (1.4 - 6.5 /CUMM) 7.1 H 7.4 H Absolute Lymphocytes (1.2 - 3.4 /CUMM) 1.2 1.4 Absolute Monocytes (0.10 - 0.60 /CUMM) 0.9 H 0.8 H Absolute Eosinophils (0.0 - 0.7 /CUMM) 1.0 0.9 Absolute Basophils (0.0 - 0.2 /CUMM) 0.1 0.1 02/17 0937 Chemistry Sodium (137 - 145 mmol/L) 138 Potassium (3.5 - 5.1 mmol/L) 3.9 Chloride (98 - 107 mmol/L) 101 Carbon Dioxide (22 - 30 mmol/L) 26 Anion Gap (5 - 16) 12 BUN (9 - 20 mg/dL) 22 H Creatinine (0.7 - 1.2 mg/dL) 0.8 Estimated GFR (>60 ml/min) > 60 BUN/Creatinine Ratio (7 - 25 %) 27.5 H Vitamin B12 (239 - 931 pg/mL) 711 Folate (2.76 - 20.0 ng/mL) 8.3 Imaging/Other Studies: 01/23/18: CT ABDOMEN AND PELVIS WITH CONTRAST- 1. *Large hepatic flexure mass is seen suspicious for a colon cancer. This appears to be widely metastatic with large mesenteric lymph nodes, retroperitoneal and upper abdominal lymph nodes, and suspected hepatic metastases seen. 2. No evidence of bowel obstruction or perforation. 3. Large amounts of dense material within the gallbladder, likely sludge. Gallbladder otherwise unremarkable. 4. Multiple bilateral renal masses, incompletely characterized on this exam, but similar to older exams and most likely small cysts. 02/11/18: EKG- NSR @ 77, baseline artifact, IRBBB, flipped T in III, flat T in F , w/o significant change. 02/12/18: EKG- NSR @ 97, borderline LAD, IRBBB, w/o change. 02/12/18: EKG- NSR @ 78, IRBBB, borderline T wave abnl inferiorly. 02/11/18: CT HEAD WO IV CONTRAST- Evidence of chronic white matter infarction and ischemic change, mostly in right parietal & occipital region. No acute midline shift, mass effect or hemorrhage. 02/11/18: CT HEAD ANGIOGRAM- Normal CTA of head. 02/12/18: DUPLEX BILATERAL CAROTID ULTRASOUND- Plaque is present in the internal carotid arteries but velocity measurements are normal and there is no evidence to suggest a hemodynamically significant stenosis of greater than 50% diameter reduction. Left vertebral artery is not visualized. 02/13/18: MRI-HEAD W/O DONNIE- 1. There are multiple areas of restricted diffusion in the cerebellar hemispheres in the bilateral frontoparietal regions, most extensive on the right superiorly, consistent with areas of infarction. There is no evidence of hemorrhagic transformation. 2. There is diffuse volume loss and there are chronic microvascular ischemic changes. 3. This critical result was discussed with Brandi Stein by telephone on 02/13/2018 at 12:50 PM and it was ascertained that the content and urgency of the report was understood at the time of direct communication.. DICTATED BY: Chaim Francis MD DATE/TIME DICTATED:02/13/18 1238 02/13/18: MR LUMBAR SPINE WITHOUT CONTRAST- 1. Markedly suboptimal study, and only motion degraded sagittal images were obtained. 2. There is spondylosis at L2-L3, L4-L5 and L5-S1 as described above. There does not appear to be central stenosis. DICTATED BY: Chaim Francis MD DATE/TIME DICTATED:02/13/18 1259 02/13/18: Echocardiogram- normal LVEF 55%, without regional wall motion abnormality or thrombus. Tr MR/TR. Mild AR. No PFO/ASD. 02/20/18: *CT ANGIOGRAM ABDOMEN AND PELVIS-
--- NOTE | 2018-02-20 07:36 | PN- Oncology ---
Subjective Subjective: He was noted to have melena and hypotension yesterday evening. His hemoglobin decreased to 7.1. He was transfused with 1 unit of pRBC. He feels a little better today. He has no new pain. Back pain is stable. Review of Systems Constitutional: Denies: chills, fever. Cardiovascular: Denies: chest pain. Respiratory: Denies: short of breath. Gastrointestinal: Reports: melena. Musculoskeletal: Reports: back pain. Neurological/Psychological: Denies: confusion. Hematologic/Endocrine: Reports: bleeding. Denies: bruising. All Other Systems: Reviewed and Negative Objective Vital Signs and I&Os Vital Signs Date Time Temp Pulse Resp B/P B/P Pulse O2 O2 Flow FiO2 Mean Ox Delivery Rate 02/20 0649 98.6 80 20 100/40 96 Room Air 02/20 0017 98.5 82 18 108/44 97 Room Air 02/19 2228 97.4 99 20 90/42 96 Room Air 02/19 2135 Room Air 02/19 1845 98.4 78 20 98/48 97 Room Air 02/19 1758 97.9 100 20 80/50 97 Room Air 02/19 1712 96 120/62 02/19 1427 97.9 82 20 100/42 96 Room Air 02/19 1211 120/50 02/19 1211 112/50 Intake & Output 02/20 0800 02/20 0000 02/19 1600 02/19 0800 02/19 0000 02/18 1600 Intake Total 200 700 540 425 120 320 Output Total 800 Balance -600 700 540 425 120 320 Intake, Blood 200 Product Intake, IV 20 Intake, Oral 200 500 540 425 120 300 Number 1 1 1 1 Bowel Movements Output, Urine 800 Patient 95.3 kg Weight Physical Exam: General Appearance: no apparent distress, comfortable, calmer, less irritable Head: atraumatic, normal appearance Respiratory: normal breath sounds, chest non-tender, no respiratory distress, quiet respiration Cardiovascular: regular rate/rhythm Abdomen: soft, tenderness (around incision), midline incision Extremities: no edema, dry blood in nails Neurologic/Psychiatric: awake, alert, oriented x 3, apraxia improving, dysartheria improving Current Medications: Current Medications Sig/Natalee Start time Last Medication Dose Route Stop Time Status Admin Acetaminophen 500 MG Q6P PRN 02/19 1130 AC PO Amlodipine Besylate 5 MG DAILY 02/12 1000 DC 02/19 PO 1211 Aspirin Buffered 81 MG DAILY 02/17 1000 AC 02/19 PO 1336 Atorvastatin Calcium 40 MG 1700 02/12 0300 AC 02/19 PO 1705 Cyclobenzaprine HCl 10 MG TID PRN 02/12 1545 AC 02/18 PO 0314 Docusate Sodium 100 MG DAILY NEEDED PRN 02/13 1915 AC PO Enoxaparin Sodium 100 MG BID 02/18 1312 DC 02/19 SC 1011 Escitalopram Oxalate 5 MG DAILY 02/18 1000 AC 02/19 PO 1211 Gabapentin 200 MG TID 02/19 1120 AC 02/19 PO 2121 Lidocaine 1 PAT DAILY 02/13 1000 AC 02/19 EXT 1015 Losartan Potassium 100 MG DAILY 02/12 1000 DC 02/19 PO 1211 Morphine Sulfate 2 MG Q6-PRN PRN 02/12 1745 AC 02/19 IV 2122 Nitroglycerin 0.5 GM Q6 02/13 1200 DC 02/19 TOP 1705 Omeprazole 40 MG DAILY AC 02/17 0045 AC 02/20 PO 0634 Oxycodone/ 1 TAB Q4P PRN 02/12 1745 AC 02/20 Acetaminophen PO 0127 Ramelteon 8 MG AT BEDTIME NEED.. 02/14 2115 AC 02/16 PO 2141 Senna 187 MG AT BEDTIME PRN 02/13 1915 AC 02/14 PO 0746 Senna/Docusate Sodium 2 TAB QPM 02/15 2200 AC 02/19 PO 2121 Simethicone 80 MG Q4P PRN 02/15 0300 AC 02/15 PO 0335 Sodium Chloride 500 ML BOLUS ONE 02/19 2245 DC 02/19 IV 02/19 2344 2243 Results Last 24 Hours of Lab Results: Laboratory Tests 02/19 02/19 2304 1445 Hematology CBC w Diff NO MAN DIFF REQ NO MAN DIFF REQ WBC (4.8 - 10.8 /CUMM) 9.7 9.4 RBC (4.70 - 6.10 /CUMM) 3.02 L 2.78 L Hgb (14.0 - 18.0 G/DL) 7.7 L 7.1 *L Hct (42 - 52 %) 24.5 L 22.0 L MCV (80.0 - 94.0 FL) 80.9 79.2 L MCH (27.0 - 31.0 PG) 25.4 L 25.7 L MCHC (33.0 - 37.0 G/DL) 31.4 L 32.5 L RDW (11.5 - 14.5 %) 15.9 H 15.4 H Plt Count (130 - 400 /CUMM) 389 366 MPV (7.4 - 10.4 FL) 8.6 9.4 Gran % (42.2 - 75.2 %) 76.6 H 73.8 Lymphocytes % (20.5 - 51.1 %) 12.3 L 13.8 L Monocytes % (1.7 - 9.3 %) 7.8 8.4 Eosinophils % (0 - 5 %) 2.5 3.3 Basophils % (0.0 - 2.0 %) 0.8 0.7 Absolute Granulocytes (1.4 - 6.5 /CUMM) 7.5 H 7.0 H Absolute Lymphocytes (1.2 - 3.4 /CUMM) 1.2 1.3 Absolute Monocytes (0.10 - 0.60 /CUMM) 0.8 H 0.8 H Absolute Eosinophils (0.0 - 0.7 /CUMM) 0.2 0.3 Absolute Basophils (0.0 - 0.2 /CUMM) 0.1 0.1 Recent Imaging Studies: CTA abdomen/pelvis 02/20/2018: Partially visualized within the lung bases are bilateral pulmonary arterial filling defects concerning for pulmonary emboli. No abdominal or pelvic free fluid. Extensive abdominal lymphadenopathy, unchanged from prior exam. Low- attenuation lesion within the liver suspicious for metastatic disease. Status post hemicolectomy. No arterial injury identified. No contrast extravasation. Assessment/Plan Assessment/Recommendations: Mr. Salter is a 67-year-old male with HTN, HLD, EtOH pancreatitis, OA, DVT/PE s /p IVC filter and currently on rivaroxaban, and stage IV adenocarcinoma of the colon with metastases to the liver s/p right hemicolectomy who presented with word finding difficulty, slurred speech, and right sided weakness. CT head without contrast and CTA head were done and was unremarkable. He has no obvious metastatic disease or ICH. MRI brain is demonstrated multiple areas of restricted diffusion in the cerebellar hemispheres and in the bilateral frontoparietal regions. MRI lumbar demonstrated no evidence of metastatic disease. He has no evidence of hemorrhagic transformation. He had a bleeding episode yesterday. He was transfused with 1 unit of pRBC. He has no active bleed current. CTA was negative for obvious source of bleeding. It is likely a slow bleed from surgical anastomosis. Given hemodynamical changes, enoxaparin has been discontinued. He has demonstrated that he can not tolerate anticoagulation at the moment. He is not a candidate for heparin drip given mental status and agitation. It may need to be off anticoagulation for a few weeks before restarting it again in the future. He may need to be on at least aspirin given the recent CVA. Psychiatry is following patient. He currently has no SI. Hopefully, he will be stable enough to get port and eventually chemotherapy as outpatient. Depression/SI: -psychiatry following GI Bleeding: -discontinue enoxaparin -no anticoagulation for now -ASA for now, may need to discontinue if further bleeding CVA: -neurology following -continue ASA -pending STR Metastatic colon cancer: -bone scan to evaluate for metastatic disease -port placement needed -outpatient chemotherapy 4-6 weeks after surgery -follow up as outpatient DVT/PE: -IVC filter in place -discontinue anticoagulation due to hemodynamical bleeding Please call [phone] with any questions or concerns. Problem List: 1. Depression 2. Anemia 3. CVA (cerebral vascular accident) 4. Adenocarcinoma of colon metastatic to liver 5. Gastrointestinal bleeding 6. DVT (deep venous thrombosis) 7. Pulmonary emboli
[2018-02-20 08:29] LABS: ABSOLUTE BASOPHIL COUNT 0.1 /CUMM (0.0-0.2); ABSOLUTE EOSINOPHIL COUNT 0.2 /CUMM (0.0-0.7); ABSOLUTE GRANULOCYTE CT 6.8 /CUMM (1.4-6.5); ABSOLUTE LYMPH COUNT 1.5 /CUMM (1.2-3.4); BASOPHIL % 0.8 % (0.0-2.0); EOSINOPHIL % 2.1 % (0-5); GRANULOCYTE % 71.2 % (42.2-75.2); HEMATOCRIT 24.9 % (42-52); MEAN CORPUSCULAR HGB 26.4 PG (27.0-31.0); MEAN CORPUSCULAR HGB CONC 32.7 G/DL (33.0-37.0); MEAN CORPUSCULAR VOLUME 80.6 FL (80.0-94.0); MEAN PLATELET VOLUME 8.9 FL (7.4-10.4); PLATELET COUNT 338 /CUMM (130-400); RBC DISTRIBUTION WIDTH 15.8 % (11.5-14.5); RED BLOOD CELL CT 3.08 /CUMM (4.70-6.10); WHITE BLOOD CELL COUNT 9.6 /CUMM (4.8-10.8)
--- NOTE | 2018-02-20 10:18 | PN- Att Addend ---
Attending Addendum Attending Brief Note Patient seen and examined. Plan of care discussed with the medical team and the patient. Available lab work and radiology test reports were reviewed. Overnight events were noted. Patient had recurrent melena and had dropped his blood pressure to 80 systolic. He was given 1 unit of blood and normal saline bolus. Patient has a sitter. Patient appears more pleasant and more interactive today. He complains of right upper quadrant mild abdominal pain but denies any difficulty breathing or dizziness. Exam: General: Patient awake but appears lethargic and irritable- he appears pale CVS: S1 plus S2 without any murmur or gallops Chest: Few scattered crepitation without any wheeze. There is no respiratory distress. Abdomen: Soft with mild discomfort right upper quadrant area without any guarding or rebound. 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 delirium * hypertension, * hyperlipidemia, * History of alcohol induced pancreatitis, * osteoarthritis, * bilateral lower extremity DVT, bilateral unprovoked pulmonary embolism on Xarelto * Stage IV adenocarcinoma of colon with liver metastases- waiting for port insertion as out pt * Possible depression * Lower GI bleed- likely contributed by adenocarcinoma of colon and being on Xeralto; recurrent bleed despite being off Xeralto * Depression and suicidal ideation * Uncontrolled back pain Plan * Hold Lovenox; can continue aspirin; due to concerns with the recent the colonic surgery and anastomosis colonoscopy is deferred; the patient continues to bleed and drop his hematocrit we will need to hold aspirin as well. * Continue Celexa; * Hold all antihypertensives at this point * Recheck CBC tomorrow * Continue Tylenol 500 mg every 6 hours [id number] * Continue Neurontin 200 mg 3 times a day by mouth * DC telemetry * Overall prognosis poor given stage IV adenocarcinoma with metastasis, positive troponin and current GI bleed Current Medications Sig/Natalee Start time Last Medication Dose Route Stop Time Status Admin Acetaminophen 500 MG Q6P PRN 02/19 1130 AC PO Amlodipine Besylate 5 MG DAILY 02/12 1000 DC 02/19 PO 1211 Aspirin Buffered 81 MG DAILY 02/17 1000 AC 02/20 PO 0931 Atorvastatin Calcium 40 MG 1700 02/12 0300 AC 02/19 PO 1705 Cyclobenzaprine HCl 10 MG TID PRN 02/12 1545 AC 02/18 PO 0314 Docusate Sodium 100 MG DAILY NEEDED PRN 02/13 1915 AC PO Enoxaparin Sodium 100 MG BID 02/18 1312 DC 02/19 SC 1011 Escitalopram Oxalate 5 MG DAILY 02/18 1000 AC 02/20 PO 0931 Gabapentin 200 MG TID 02/19 1120 AC 02/20 PO 0931 Lidocaine 1 PAT DAILY 02/13 1000 AC 02/20 EXT 0931 Losartan Potassium 100 MG DAILY 02/12 1000 DC 02/19 PO 1211 Morphine Sulfate 2 MG Q6-PRN PRN 02/12 1745 AC 02/20 IV 0817 Nitroglycerin 0.5 GM Q6 02/13 1200 DC 02/19 TOP 1705 Omeprazole 40 MG DAILY AC 02/17 0045 AC 02/20 PO 0634 Oxycodone/ 1 TAB Q4P PRN 02/12 1745 AC 02/20 Acetaminophen PO 0127 Ramelteon 8 MG AT BEDTIME NEED.. 02/14 211 AC 02/16 PO 2141 Senna 187 MG AT BEDTIME PRN 02/13 1915 AC 02/14 PO 0746 Senna/Docusate Sodium 2 TAB QPM 02/15 2200 AC 02/19 PO 2121 Simethicone 80 MG Q4P PRN 02/15 0300 AC 02/15 PO 0335 Sodium Chloride 500 ML BOLUS ONE 02/19 2245 DC 02/19 IV 02/19 2344 2243 Laboratory Tests 02/20/18 0737: CBC w Diff NO MAN DIFF REQ, RBC 3.08 L, MCV 80.6, MCH 26.4 L, MCHC 32.7 L, RDW 15.8 H, MPV 8.9, Gran % 71.2, Lymphocytes % 15.4 L, Monocytes % 10.5 H, Eosinophils % 2.1, Basophils % 0.8, Absolute Granulocytes 6.8 H, Absolute Lymphocytes 1.5, Absolute Monocytes 1.0 H, Absolute Eosinophils 0.2, Absolute Basophils 0.1 02/19/18 2304: CBC w Diff NO MAN DIFF REQ, RBC 3.02 L, MCV 80.9, MCH 25.4 L, MCHC 31.4 L, RDW 15.9 H, MPV 8.6, Gran % 76.6 H, Lymphocytes % 12.3 L, Monocytes % 7.8, Eosinophils % 2.5, Basophils % 0.8, Absolute Granulocytes 7.5 H, Absolute Lymphocytes 1.2, Absolute Monocytes 0.8 H, Absolute Eosinophils 0.2, Absolute Basophils 0.1 02/19/18 1445: CBC w Diff NO MAN DIFF REQ, RBC 2.78 L, MCV 79.2 L, MCH 25.7 L, MCHC 32.5 L, RDW 15.4 H, MPV 9.4, Gran % 73.8, Lymphocytes % 13.8 L, Monocytes % 8.4, Eosinophils % 3.3, Basophils % 0.7, Absolute Granulocytes 7.0 H, Absolute Lymphocytes 1.3, Absolute Monocytes 0.8 H, Absolute Eosinophils 0.3, Absolute Basophils 0.1 02/19/18 0635: CBC w Diff NO MAN DIFF REQ, RBC 3.10 L, MCV 80.2, MCH 26.2 L, MCHC 32.6 L, RDW 15.4 H, MPV 9.3, Gran % 77.4 H, Lymphocytes % 10.6 L, Monocytes % 7.6, Eosinophils % 3.6, Basophils % 0.8, Absolute Granulocytes 7.6 H, Absolute Lymphocytes 1.0 L, Absolute Monocytes 0.7 H, Absolute Eosinophils 0.4, Absolute Basophils 0.1 02/18/18 0615: Anion Gap 14, Estimated GFR > 60, BUN/Creatinine Ratio 20.0, CBC w Diff NO MAN DIFF REQ, RBC 3.14 L, MCV 80.8, MCH 26.8 L, MCHC 33.1, RDW 15.4 H, MPV 8.9, Gran % 68.5, Lymphocytes % 11.7 L, Monocytes % 8.8, Eosinophils % 9.9 H, Basophils % 1.1, Absolute Granulocytes 7.1 H, Absolute Lymphocytes 1.2, Absolute Monocytes 0.9 H, Absolute Eosinophils 1.0, Absolute Basophils 0.1 02/17/18 1815: CBC w Diff NO MAN DIFF REQ, RBC 3.23 L, MCV 81.1, MCH 26.3 L, MCHC 32.4 L, RDW 15.6 H, MPV 8.7, Gran % 69.8, Lymphocytes % 13.5 L, Monocytes % 7.7, Eosinophils % 8.4 H, Basophils % 0.6, Absolute Granulocytes 7.4 H, Absolute Lymphocytes 1.4, Absolute Monocytes 0.8 H, Absolute Eosinophils 0.9, Absolute Basophils 0.1 Vital Signs Date Time Temp Pulse Resp B/P B/P Pulse O2 O2 Flow FiO2 Mean Ox Delivery Rate 02/20 0800 96 Room Air 02/20 0649 98.6 80 20 100/40 96 Room Air 02/20 0017 98.5 82 18 108/44 97 Room Air 02/19 2228 97.4 99 20 90/42 96 Room Air 02/19 2135 Room Air 02/19 1845 98.4 78 20 98/48 97 Room Air 02/19 1758 97.9 100 20 80/50 97 Room Air 02/19 1712 96 120/62 02/19 1427 97.9 82 20 100/42 96 Room Air 02/19 1211 120/50 02/19 1211 112/50 Intake & Output 02/20 1600 02/20 0800 02/20 0000 Intake Total 200 700 Output Total 800 Balance -600 700 Intake, Blood 200 Product Intake, Oral 200 500 Number 1 1 Bowel Movements Output, Urine 800 CTA abdomen Partially visualized within the lung bases are bilateral pulmonary arterial filling defects concerning for pulmonary emboli. No abdominal or pelvic free fluid. Extensive abdominal lymphadenopathy, unchanged from prior exam. Low-attenuation lesion within the liver suspicious for metastatic disease. Status post hemicolectomy. No arterial injury identified. No contrast extravasation. The aforementioned was communicated to Dr. Fox at 0140 hours.
[2018-02-20 12:31] VITALS: BP 140/68
[2018-02-20 14:51] VITALS: BP 134/50
[2018-02-20 22:31] VITALS: BP 148/62
[2018-02-21 06:20] VITALS: BP 140/64
--- NOTE | 2018-02-21 07:12 | PN- Housestaff ---
Yoni CORTES,Geri 02/21/18 0712: Subjective Follow-up For: Stroke Elevated troponin-resolved Stage IV colon cancer with liver metastasis History of Bilateral DVT and PE on xeralto. Complaints: no complaints Subjective: Patient seen and examined at bedside. Patient denied examination and was upset that he didn't get Rice Krispies for breakfast. Review of system-unobtainable Review of Systems Constitutional: Reports: see HPI. Objective Last 24 Hrs of Vital Signs/I&O Vital Signs Date Time Temp Pulse Resp B/P B/P Pulse O2 O2 Flow FiO2 Mean Ox Delivery Rate 02/21 0620 98.3 92 18 140/64 100 Room Air 02/20 2231 98.4 84 18 148/62 97 Room Air 02/20 1600 97 Room Air 02/20 1451 98.0 84 20 134/50 97 Room Air Intake & Output 02/21 1600 02/21 0800 02/21 0000 Intake Total 490 680 Output Total 500 Balance 490 180 Intake, IV 10 Intake, Oral 480 680 Output, Urine 500 Patient 204 lb 205 lb Weight Weight Bed scale Measurement Method Physical Exam General Appearance: Alert, Oriented X3, Cooperative, No Acute Distress Cardiovascular: Regular Rate, Normal S1, Normal S2, No Murmurs Lungs: Clear to Auscultation Abdomen: Soft, No Tenderness, No Hepatospenomegaly Extremities: No Cyanosis, No Edema, Normal Pulses Current Medications: Current Medications Sig/Natalee Start time Last Medication Dose Route Stop Time Status Admin Acetaminophen 500 MG Q6P PRN 02/19 1130 AC PO Aspirin Buffered 81 MG DAILY 02/17 1000 AC 02/21 PO 1314 Atorvastatin Calcium 40 MG 1700 02/12 0300 AC 02/20 PO 1659 Cyclobenzaprine HCl 10 MG TID PRN 02/12 1545 AC 02/18 PO 0314 Docusate Sodium 100 MG DAILY NEEDED PRN 02/13 1915 AC PO Escitalopram Oxalate 5 MG DAILY 02/18 1000 AC 02/21 PO 1314 Gabapentin 200 MG TID 02/19 1120 AC 02/21 PO 1314 Lidocaine 1 PAT DAILY 02/13 1000 AC 02/20 EXT 0931 Morphine Sulfate 2 MG Q6-PRN PRN 02/12 1745 AC 02/20 IV 1321 Omeprazole 40 MG DAILY AC 02/17 0045 AC 02/20 PO 0634 Oxycodone/ 1 TAB Q4P PRN 02/12 1745 AC 02/21 Acetaminophen PO 0159 Ramelteon 8 MG .STK-MED ONE 02/21 0158 DC PO 02/21 0159 Ramelteon 8 MG AT BEDTIME NEED.. 02/14 2115 AC 02/21 PO 0200 Senna 187 MG AT BEDTIME PRN 02/13 1915 AC 02/14 PO 0746 Senna/Docusate Sodium 2 TAB QPM 02/15 220 AC 02/20 PO 2059 Simethicone 80 MG Q4P PRN 02/15 0300 AC 02/15 PO 0335 Last 24 Hrs of Lab/Marlon Results Last 24 Hrs of Labs/Mics: Laboratory Tests 02/21/18 0705: Anion Gap 16, Estimated GFR > 60, BUN/Creatinine Ratio 23.8, CBC w Diff NO MAN DIFF REQ, RBC 3.35 L, MCV 81.0, MCH 26.4 L, MCHC 32.6 L, RDW 16.4 H, MPV 8.7 , Gran % 70.1, Lymphocytes % 12.9 L, Monocytes % 11.1 H, Eosinophils % 5.4 H, Basophils % 0.5, Absolute Granulocytes 7.2 H, Absolute Lymphocytes 1.3, Absolute Monocytes 1.1 H, Absolute Eosinophils 0.6, Absolute Basophils 0 Assessment/Plan Assessment: Mr. Salter is a 67-year-old male with past medical history significant for hypertension, hyperlipidemia, alcohol induced pancreatitis, osteoarthritis, bilateral lower extremity DVT, bilateral unprovoked pulmonary embolism on Xarelto 15 twice daily, colon cancer status post resection presented to the emergency department with chief complaint of change in speech since 02/11/2018 8 AM, and RUE stiffness found to have a CVA. Assessment and plan: * Melena-monitor CBC. Today hemoglobin 8.8 with a hematocrit of 27.1. Lovenox on hold. Continue aspirin. GI was on board. Suggested not to repeat the colonoscopy. Patient is on heart healthy diet. * CVA-MRI head multiple areas of restricted diffusion in the cerebellar hemisphere in the by lateral frontoparietal regions consistent with areas of infarction. Patient is on aspirin and Lipitor. Continue neuro checks and maintain fall precaution. PT/OT on board. He was evaluated and recommended short-term rehabilitation. Patient will be seen by psychiatry regarding discharge disposition aided to acute rehabilitation/GERIATRIC PSYCH placement. * Elevated troponin-resolved. Echo done shows normal ejection fraction of 55%. Appreciate cardiology recommendations * Stage IV colon cancer with liver metastasis-oncology on board who suggested a bone scan outpatient, for PORT placement in 4-6 weeks, chemotherapy with FOLFOX. * Suicidal ideation psychiatry on Board. Suggested not to discharge him AGAINST MEDICAL ADVICE. * B/L Lower extremity bilateral DVT, bilateral PE s/p IVC Filter placement: Patient was recently admitted for bilateral lower extremity DVTs and PE. Because he needed to have a hemicolectomy, an IVC filter was placed by vascular surgery. original plan was xaralto 15 mg twice daily for 1 more week and then start 20 mg daily, however now on hold as above due to GI bleed. Lovenox 100mg SC BID discontinued as above. * Hypertension- Held amlodipine and losartan on 02/20 overnight due to GI bleed/ melena as above. Pending restart once stablized on h/h. * Chronic back pain - Continue pain control #full code #DVT prophylaxis none 2/2 GI bleed Problem List: 1. Anemia 2. CVA (cerebral vascular accident) 3. Adenocarcinoma of colon metastatic to liver 4. DVT (deep venous thrombosis) Pain Ratin Pain Location: NONE Pain Goal: Remain pain free Pain Plan: TYLENOL Tomorrow's Labs & Rationales: CBC,BEP,MG Fco Osei MD 02/21/182126: Attending MD Review Statement Attending Statement Attending MD Statement: examined this patient, discuss w/resident/PA/ENVIRONMENTAL INSPECTOR, agreed w/resident/PA/ENVIRONMENTAL INSPECTOR, discussed with family, reviewed EMR data (avail), discussed with nursing, discussed with case mgmt, amended to note Attending Assessment/Plan: The patient was seen x 3 today. Discussed with house staff, , nursing, and psychiatry. Appreciate psychiatry follow-up. Still depressed and expressing some suicidal ideation. Psychiatry feels his capacity is impaired and should not be allowed to sign out AMA. He was agitated due to move from telemetry floor at 1 am. Some confusion after receiving IV morphine. Will try to avoid IV narcotics if possible. Liberalize diet (was on heart healthy and he mostly eats beef). Patient initially refused medication in morning, however took later. Neurologically improved. Continue speech therapy follow-up.
--- NOTE | 2018-02-21 07:34 | PN- Oncology ---
Subjective Subjective: He was moved to a different room overnight. He is angry to have moved to the room. He states he feels like he is in "jail." He remains agitated. He was not able to sleep much overnight. His pain is about the same. Review of Systems Constitutional: Denies: chills, fever. Cardiovascular: Denies: chest pain. Respiratory: Denies: short of breath. Gastrointestinal: Denies: abdominal pain. Musculoskeletal: Reports: back pain. Neurological/Psychological: Reports: see HPI, emotional problems. Hematologic/Endocrine: Denies: bruising, bleeding. All Other Systems: Reviewed and Negative Objective Vital Signs and I&Os Vital Signs Date Time Temp Pulse Resp B/P B/P Pulse O2 O2 Flow FiO2 Mean Ox Delivery Rate 02/21 0620 98.3 92 18 140/64 100 Room Air 02/20 2231 98.4 84 18 148/62 97 Room Air 02/20 1600 97 Room Air 02/20 1451 98.0 84 20 134/50 97 Room Air 02/20 1231 140/68 02/20 0800 96 Room Air Intake & Output 02/21 0800 02/21 0000 02/20 1600 02/20 0800 02/20 0000 02/19 1600 Intake Total 490 680 560 200 700 540 Output Total 500 700 800 Balance 490 180 -140 -600 700 540 Intake, Blood 200 Product Intake, IV 10 Intake, Oral 480 680 560 200 500 540 Number 1 1 1 Bowel Movements Output, Urine 500 700 800 Patient 92.618 kg 92.76 kg Weight Weight Bed scale Measurement Method Physical Exam: General Appearance: no apparent distress, comfortable, calmer, agitated Head: atraumatic, normal appearance Respiratory: normal breath sounds, chest non-tender, no respiratory distress, quiet respiration Cardiovascular: regular rate/rhythm Abdomen: soft, tenderness (around incision), midline incision Extremities: no edema, dry blood in nails Neurologic/Psychiatric: awake, alert, oriented x 3, apraxia and dysartheria stable Current Medications: Current Medications Sig/Natalee Start time Last Medication Dose Route Stop Time Status Admin Acetaminophen 500 MG Q6P PRN 02/19 1130 AC PO Aspirin Buffered 81 MG DAILY 02/17 1000 AC 02/20 PO 0931 Atorvastatin Calcium 40 MG 1700 02/12 0300 AC 02/20 PO 1659 Cyclobenzaprine HCl 10 MG TID PRN 02/12 1545 AC 02/18 PO 0314 Docusate Sodium 100 MG DAILY NEEDED PRN 02/13 1915 AC PO Escitalopram Oxalate 5 MG DAILY 02/18 1000 AC 02/20 PO 0931 Gabapentin 200 MG TID 02/19 1120 AC 02/20 PO 205 Lidocaine 1 PAT DAILY 02/13 1000 AC 02/20 EXT 0931 Morphine Sulfate 2 MG Q6-PRN PRN 02/12 1745 AC 02/20 IV 1321 Omeprazole 40 MG DAILY AC 02/17 0045 AC 02/20 PO 0634 Oxycodone/ 1 TAB Q4P PRN 02/12 1745 AC 02/21 Acetaminophen PO 0159 Ramelteon 8 MG AT BEDTIME NEED.. 02/14 211 AC 02/21 PO 0200 Senna 187 MG AT BEDTIME PRN 02/13 1915 AC 02/14 PO 0746 Senna/Docusate Sodium 2 TAB QPM 02/15 2200 AC 02/20 PO 2058 Simethicone 80 MG Q4P PRN 02/15 0300 AC 02/15 PO 0335 Results Last 24 Hours of Lab Results: Laboratory Tests 02/20 0737 Hematology CBC w Diff NO MAN DIFF REQ WBC (4.8 - 10.8 /CUMM) 9.6 RBC (4.70 - 6.10 /CUMM) 3.08 L Hgb (14.0 - 18.0 G/DL) 8.1 L Hct (42 - 52 %) 24.9 L MCV (80.0 - 94.0 FL) 80.6 MCH (27.0 - 31.0 PG) 26.4 L MCHC (33.0 - 37.0 G/DL) 32.7 L RDW (11.5 - 14.5 %) 15.8 H Plt Count (130 - 400 /CUMM) 338 MPV (7.4 - 10.4 FL) 8.9 Gran % (42.2 - 75.2 %) 71.2 Lymphocytes % (20.5 - 51.1 %) 15.4 L Monocytes % (1.7 - 9.3 %) 10.5 H Eosinophils % (0 - 5 %) 2.1 Basophils % (0.0 - 2.0 %) 0.8 Absolute Granulocytes (1.4 - 6.5 /CUMM) 6.8 H Absolute Lymphocytes (1.2 - 3.4 /CUMM) 1.5 Absolute Monocytes (0.10 - 0.60 /CUMM) 1.0 H Absolute Eosinophils (0.0 - 0.7 /CUMM) 0.2 Absolute Basophils (0.0 - 0.2 /CUMM) 0.1 Assessment/Plan Assessment/Recommendations: Mr. Salter is a 67-year-old male with HTN, HLD, EtOH pancreatitis, OA, DVT/PE s /p IVC filter and currently on rivaroxaban, and stage IV adenocarcinoma of the colon with metastases to the liver s/p right hemicolectomy who presented with word finding difficulty, slurred speech, and right sided weakness. CT head without contrast and CTA head were done and was unremarkable. He has no obvious metastatic disease or ICH. MRI brain is demonstrated multiple areas of restricted diffusion in the cerebellar hemispheres and in the bilateral frontoparietal regions. MRI lumbar demonstrated no evidence of metastatic disease. He has no evidence of hemorrhagic transformation. Anticoagulation has been stopped. He has no evidence of persistent GI bleeding at the moment. He remains on aspirin. Neurological symptoms seem stable. He remains agitated and irritable. Psychiatry is following for depression and SI. He has no active SI at the moment. His tumor is KRAS/BRAF wild type and GERDA. He will need chemotherapy with FOLFOX as an outpatient. He will need port placement prior. Depression/SI: -psychiatry following GI Bleeding: -no anticoagulation for now -ASA for now, may need to discontinue if persistent bleeding CVA: -neurology following -continue ASA -pending STR Metastatic colon cancer: -bone scan to evaluate for metastatic disease, may be done as outpatient -port placement needed -outpatient chemotherapy 4-6 weeks after surgery -follow up as outpatient DVT/PE: -IVC filter in place -off anticoagulation due to hemodynamically unstable and recurrent GI bleeding Please call [phone] with any questions or concerns. Problem List: 1. DVT (deep venous thrombosis) 2. Pulmonary emboli 3. Gastrointestinal bleeding 4. Adenocarcinoma of colon metastatic to liver 5. CVA (cerebral vascular accident) 6. Expressive aphasia 7. Depression
[2018-02-21 08:00] LABS: ABSOLUTE BASOPHIL COUNT 0 /CUMM (0.0-0.2); ABSOLUTE EOSINOPHIL COUNT 0.6 /CUMM (0.0-0.7); ABSOLUTE GRANULOCYTE CT 7.2 /CUMM (1.4-6.5); ABSOLUTE LYMPH COUNT 1.3 /CUMM (1.2-3.4); ABSOLUTE MONOCYTE COUNT 1.1 /CUMM (0.10-0.60); BASOPHIL % 0.5 % (0.0-2.0); EOSINOPHIL % 5.4 % (0-5); GRANULOCYTE % 70.1 % (42.2-75.2); HEMATOCRIT 27.1 % (42-52); MEAN CORPUSCULAR HGB 26.4 PG (27.0-31.0); MEAN CORPUSCULAR HGB CONC 32.6 G/DL (33.0-37.0); MEAN PLATELET VOLUME 8.7 FL (7.4-10.4); PLATELET COUNT 356 /CUMM (130-400); RBC DISTRIBUTION WIDTH 16.4 % (11.5-14.5); RED BLOOD CELL CT 3.35 /CUMM (4.70-6.10); WHITE BLOOD CELL COUNT 10.3 /CUMM (4.8-10.8)
[2018-02-21 14:45] VITALS: BP 140/62
--- NOTE | 2018-02-21 17:06 | PN- Psychiatry ---
Assessment/Plan Impression: This a 67-year-old male with PMH significant for hypertension, hyperlipidemia, alcohol induced pancreatitis, osteoarthritis, bilateral lower extremity DVT, bilateral unprovoked pulmonary embolism, colon cancer status post resection presented to the emergency department with chief complaint of change in speech since 02/11/2018 8 AM, and RUE stiffness found to have a L MCA ischemic stroke. Pt was seen and examined bedside. He is accompanied by his with whom I also spoke. Dr. Osei was kind enough to introduce to the pt and his . Pt made a suicidal gesture while in-house in the context of multiple medical problems including recent diagnosis of colon ca with liver mets, L sided stroke with residual weakness and dysarthria, He later minimized this gesture. On exam pt is irritable. He was "shanghai'd last night" when his room was moved, awakened multiple times, not allowed to eat certain foods, all of which put him in this irritable state. reports he "had a perfect day yesterday" and asked if she would take him home she states she is concerned about this acute change in his demeanor. I explained to pt that we are concerned about his safety and he bristled, stating he does not want to kill himself or anyone else. "How many times to I have to say it!!!" He understands that it is an option to go to a psych bed after he is medically cleared. He does not feel he needs psychiatric care and wants to go home. He is unable to answer any questions without extreme irritability even after I explain that he needs to answer me calmly. When I left the room he yelled "f* off!" He denies hallucinations, SI, HI. Endorses back pain which he feels is untreated. MSE: Pt is a 67 yo M sitting up in bed with tam partially draped over him, NAD. His speech is unclear 2/2 dysarthria. He is irritable, not wanting to answer questions, most questions he answers with a diatribe. He is not able to calm from the irritability to answer my questions in a credible fashion. His TP is circumstantial; TC He is intensely frustrated with the vicissitudes of medical care, no delusions, illusions or hallucinations. Insight pt is able to articulate his frustration but his minimization of his suicidal gesture and his inability to synthesize that his irritability may be due to mood changes are concerning Judgment: fair to poor. He states he wants to leave, he is refusing medication. Current Medications Sig/Natalee Start time Last Medication Dose Route Stop Time Status Admin Acetaminophen 500 MG Q6P PRN 02/19 1130 DC PO Aspirin Buffered 81 MG DAILY 02/17 1000 AC 02/21 PO 1314 Atorvastatin Calcium 40 MG 1700 02/12 0300 AC 02/21 PO 1624 Cyclobenzaprine HCl 10 MG TID PRN 02/12 1545 AC 02/18 PO 0314 Docusate Sodium 100 MG DAILY NEEDED PRN 02/13 191 AC PO Escitalopram Oxalate 5 MG DAILY 02/18 1000 AC 02/21 PO 1314 Gabapentin 200 MG TID 02/19 1120 AC 02/21 PO 1624 Lidocaine 1 PAT DAILY 02/13 1000 AC 02/20 EXT 0931 Morphine Sulfate 2 MG Q6-PRN PRN 02/12 1745 AC 02/20 IV 1321 Omeprazole 40 MG DAILY AC 02/17 0045 AC 02/20 PO 0634 Oxycodone/ 2 TAB Q6P PRN 02/21 1730 AC 02/21 Acetaminophen PO 1746 Oxycodone/ 1 TAB Q4P PRN 02/12 1745 AC 02/21 Acetaminophen PO 1408 Ramelteon 8 MG .STK-MED ONE 02/21 0158 DC PO 02/21 0159 Ramelteon 8 MG AT BEDTIME NEED.. 02/14 2115 AC 02/21 PO 0200 Senna 187 MG AT BEDTIME PRN 02/13 191 AC 02/14 PO 0746 Senna/Docusate Sodium 2 TAB QPM 02/15 2200 AC 02/20 PO 2059 Simethicone 80 MG Q4P PRN 02/15 0300 AC 02/15 PO 0335 Laboratory Tests 02/21 02/20 0705 0737 Chemistry Sodium (137 - 145 mmol/L) 137 Potassium (3.5 - 5.1 mmol/L) 3.9 Chloride (98 - 107 mmol/L) 100 Carbon Dioxide (22 - 30 mmol/L) 21 L Anion Gap (5 - 16) 16 BUN (9 - 20 mg/dL) 19 Creatinine (0.7 - 1.2 mg/dL) 0.8 Estimated GFR (>60 ml/min) > 60 BUN/Creatinine Ratio (7 - 25 %) 23.8 Hematology CBC w Diff NO MAN DIFF REQ NO MAN DIFF REQ WBC (4.8 - 10.8 /CUMM) 10.3 9.6 RBC (4.70 - 6.10 /CUMM) 3.35 L 3.08 L Hgb (14.0 - 18.0 G/DL) 8.8 L 8.1 L Hct (42 - 52 %) 27.1 L 24.9 L MCV (80.0 - 94.0 FL) 81.0 80.6 MCH (27.0 - 31.0 PG) 26.4 L 26.4 L MCHC (33.0 - 37.0 G/DL) 32.6 L 32.7 L RDW (11.5 - 14.5 %) 16.4 H 15.8 H Plt Count (130 - 400 /CUMM) 356 338 MPV (7.4 - 10.4 FL) 8.7 8.9 Gran % (42.2 - 75.2 %) 70.1 71.2 Lymphocytes % (20.5 - 51.1 %) 12.9 L 15.4 L Monocytes % (1.7 - 9.3 %) 11.1 H 10.5 H Eosinophils % (0 - 5 %) 5.4 H 2.1 Basophils % (0.0 - 2.0 %) 0.5 0.8 Absolute Granulocytes (1.4 - 6.5 /CUMM) 7.2 H 6.8 H Absolute Lymphocytes (1.2 - 3.4 /CUMM) 1.3 1.5 Absolute Monocytes (0.10 - 0.60 /CUMM) 1.1 H 1.0 H Absolute Eosinophils (0.0 - 0.7 /CUMM) 0.6 0.2 Absolute Basophils (0.0 - 0.2 /CUMM) 0 0.1 02/19 2304 Hematology CBC w Diff NO MAN DIFF REQ WBC (4.8 - 10.8 /CUMM) 9.7 RBC (4.70 - 6.10 /CUMM) 3.02 L Hgb (14.0 - 18.0 G/DL) 7.7 L Hct (42 - 52 %) 24.5 L MCV (80.0 - 94.0 FL) 80.9 MCH (27.0 - 31.0 PG) 25.4 L MCHC (33.0 - 37.0 G/DL) 31.4 L RDW (11.5 - 14.5 %) 15.9 H Plt Count (130 - 400 /CUMM) 389 MPV (7.4 - 10.4 FL) 8.6 Gran % (42.2 - 75.2 %) 76.6 H Lymphocytes % (20.5 - 51.1 %) 12.3 L Monocytes % (1.7 - 9.3 %) 7.8 Eosinophils % (0 - 5 %) 2.5 Basophils % (0.0 - 2.0 %) 0.8 Absolute Granulocytes (1.4 - 6.5 /CUMM) 7.5 H Absolute Lymphocytes (1.2 - 3.4 /CUMM) 1.2 Absolute Monocytes (0.10 - 0.60 /CUMM) 0.8 H Absolute Eosinophils (0.0 - 0.7 /CUMM) 0.2 Absolute Basophils (0.0 - 0.2 /CUMM) 0.1 A/ Pt is a 67 y/o MWM w/ new L sided stroke, stage 4 colon ca and multiple medical problems who currently presents as flippant and irritable in the context of many stressors. Patient may have an evolving depressive state that is manifesting in this heigthened irritablity. While he has reasons to be agitated he is unable to calm himself to discuss his mental state credibly. I am not concerned about acute suicidality in the hospital per se, and on my exam he is not delirious. The concern is that pt is s/p stroke with which can come psychiatric changes most commonly depression which can manifest in this type of irritablity, but other personality changes can appear as well. Pt is not making clear or rational decisions and his mental status while not delirious is still significantly changed. He made several flippant, nihilistic statements regarding his lifespan. While his frustration with his circumstances is understandable, he needs to be able to present himself in a less agitated state. P/ -Lexapro can be increased to 10 mg qDaily. -At this time patient's presentation is concerning enough that he lacks capacity to leave AMA; this may car changer time and can be reassessed. -Pt denies suicidality at this time. Until he can remain calm consistently, he should be continued on 1:1. -Monitor for acute confusion. -Regarding his ultimate disposition, patient should be reassessed for his need for a psychiatric bed. My concern is that we do not know his new baseline in terms of mood and cognition, and currently he is agitated enough to be potentially impulsive. He is also irritable about medical care and can be saying what he thinks we need to hear so he can leave. He may become more cooperative in time. Alternatively, he may manifest further despair and disorganization. -Psych will continue to follow with you. Leeann Rajan MD #[id number] Suggestion: see impression Subjective Subjective: see impression Objective Last 24 Hrs of Vital Signs/I&O Vital Signs Date Time Temp Pulse Resp B/P B/P Pulse O2 O2 Flow FiO2 Mean Ox Delivery Rate 02/21 1445 97.6 76 20 140/62 100 Room Air 02/21 0620 98.3 92 18 140/64 100 Room Air 02/20 2231 98.4 84 18 148/62 97 Room Air Intake & Output 02/21 1600 02/21 0800 02/21 0000 Intake Total 490 680 Output Total 500 Balance 490 180 Intake, IV 10 Intake, Oral 480 680 Output, Urine 500 Patient 204 lb 205 lb Weight Weight Bed scale Measurement Method
[2018-02-21 22:34] VITALS: BP 146/60
[2018-02-22 06:56] VITALS: BP 128/64
[2018-02-22 08:46] LABS: ABSOLUTE BASOPHIL COUNT 0.1 /CUMM (0.0-0.2); ABSOLUTE EOSINOPHIL COUNT 0.7 /CUMM (0.0-0.7); ABSOLUTE GRANULOCYTE CT 7.8 /CUMM (1.4-6.5); ABSOLUTE LYMPH COUNT 1.2 /CUMM (1.2-3.4); ABSOLUTE MONOCYTE COUNT 0.9 /CUMM (0.10-0.60); BASOPHIL % 0.5 % (0.0-2.0); EOSINOPHIL % 6.5 % (0-5); GRANULOCYTE % 73.7 % (42.2-75.2); HEMATOCRIT 26.5 % (42-52); MEAN CORPUSCULAR HGB 26.4 PG (27.0-31.0); MEAN CORPUSCULAR HGB CONC 32.6 G/DL (33.0-37.0); MEAN CORPUSCULAR VOLUME 80.9 FL (80.0-94.0); MEAN PLATELET VOLUME 8.9 FL (7.4-10.4); PLATELET COUNT 309 /CUMM (130-400); RBC DISTRIBUTION WIDTH 15.8 % (11.5-14.5); RED BLOOD CELL CT 3.28 /CUMM (4.70-6.10); WHITE BLOOD CELL COUNT 10.6 /CUMM (4.8-10.8)
--- NOTE | 2018-02-22 11:24 | PN- Housestaff ---
See Addendum Subjective Follow-up For: stroke, PR, Stage IV colon cancer Subjective: Patient is sleeping comfortably. Review of Systems Constitutional: Reports: no symptoms. EENTM: Reports: no symptoms. Cardiovascular: Reports: no symptoms. Respiratory: Reports: no symptoms. Gastrointestinal: Reports: no symptoms. Genitourinary: Reports: no symptoms. Musculoskeletal: Reports: no symptoms. Skin: Reports: no symptoms. Neurological/Psychological: Reports: no symptoms. Hematologic/Endocrine: Reports: no symptoms. Immunologic/Allergic: Reports: no symptoms. Objective Last 24 Hrs of Vital Signs/I&O Vital Signs Date Time Temp Pulse Resp B/P B/P Pulse O2 O2 Flow FiO2 Mean Ox Delivery Rate 02/22 0656 97.6 86 18 128/64 97 Room Air 02/21 2234 97.9 73 18 146/60 98 02/21 1445 97.6 76 20 140/62 100 Room Air Intake & Output 02/22 1600 02/22 0800 02/22 0000 Intake Total 490 490 Output Total Balance 490 490 Intake, IV 10 10 Intake, Oral 480 480 Patient 88.932 kg Weight Physical Exam General Appearance: Alert, Oriented X3, Cooperative, No Acute Distress Cardiovascular: Regular Rate, Normal S1, Normal S2 Lungs: Clear to Auscultation Abdomen: Normal Bowel Sounds, Soft, No Tenderness Current Medications: Current Medications Sig/Natalee Start time Last Medication Dose Route Stop Time Status Admin Acetaminophen 500 MG Q6P PRN 02/19 1130 DC PO Aspirin Buffered 81 MG DAILY 02/17 1000 AC 02/22 PO 0929 Atorvastatin Calcium 40 MG 1700 02/12 0300 AC 02/21 PO 1624 Cyclobenzaprine HCl 10 MG TID PRN 02/12 1545 AC 02/22 PO 0321 Docusate Sodium 100 MG DAILY NEEDED PRN 02/13 1915 AC PO Escitalopram Oxalate 10 MG DAILY 02/22 1000 AC 02/22 PO 0929 Escitalopram Oxalate 5 MG DAILY 02/18 1000 DC 02/21 PO 1314 Gabapentin 200 MG TID 02/19 1120 AC 02/22 PO 0929 Lidocaine 1 PAT DAILY 02/13 1000 AC 02/20 EXT 0931 Morphine Sulfate 2 MG Q6-PRN PRN 02/12 1745 AC 02/20 IV 1321 Omeprazole 40 MG DAILY AC 02/17 0045 AC 02/20 PO 0634 Oxycodone/ 2 TAB Q6P PRN 02/21 1730 AC 02/22 Acetaminophen PO 0320 Oxycodone/ 1 TAB Q4P PRN 02/12 1745 AC 02/22 Acetaminophen PO 0702 Ramelteon 8 MG .STK-MED ONE 02/21 2123 DC PO 02/22 2124 Ramelteon 8 MG AT BEDTIME NEED.. 02/14 2115 AC 02/21 PO 212 Senna 187 MG AT BEDTIME PRN 02/13 1915 AC 02/14 PO 0746 Senna/Docusate Sodium 2 TAB QPM 02/15 2200 AC 02/21 PO 212 Simethicone 80 MG Q4P PRN 02/15 0300 AC 02/15 PO 0335 Last 24 Hrs of Lab/Marlon Results Last 24 Hrs of Labs/Mics: Laboratory Tests 02/22/18 0800: Anion Gap 13, Estimated GFR > 60, BUN/Creatinine Ratio 22.5, CBC w Diff NO MAN DIFF REQ, RBC 3.28 L, MCV 80.9, MCH 26.4 L, MCHC 32.6 L, RDW 15.8 H, MPV 8.9 , Gran % 73.7, Lymphocytes % 11.1 L, Monocytes % 8.2, Eosinophils % 6.5 H, Basophils % 0.5, Absolute Granulocytes 7.8 H, Absolute Lymphocytes 1.2, Absolute Monocytes 0.9 H, Absolute Eosinophils 0.7, Absolute Basophils 0.1 Assessment/Plan Assessment: Mr. Salter is a 67-year-old male with past medical history significant for hypertension, hyperlipidemia, alcohol induced pancreatitis, osteoarthritis, bilateral lower extremity DVT, bilateral unprovoked pulmonary embolism on Xarelto 15 twice daily, colon cancer status post resection presented to the emergency department with chief complaint of change in speech since 02/11/2018 8 AM, and RUE stiffness found to have a CVA. Assessment and plan: * Melena-monitor CBC. Today hemoglobin 8.8 with a hematocrit of 27.1. Lovenox on hold. Continue aspirin. GI was on board. Suggested not to repeat the colonoscopy. Patient is on heart healthy diet. * CVA-MRI head multiple areas of restricted diffusion in the cerebellar hemisphere in the by lateral frontoparietal regions consistent with areas of infarction. Patient is on aspirin and Lipitor. Continue neuro checks and maintain fall precaution. PT/OT on board. He was evaluated and recommended short-term rehabilitation. Patient will be seen by psychiatry regarding discharge disposition aided to acute rehabilitation/GERIATRIC PSYCH placement. * Elevated troponin-resolved. Echo done shows normal ejection fraction of 55%. Appreciate cardiology recommendations * Stage IV colon cancer with liver metastasis-oncology on board who suggested a bone scan outpatient, for PORT placement in 4-6 weeks, chemotherapy with FOLFOX. * Suicidal ideation psychiatry on Board. Suggested not to discharge him AGAINST MEDICAL ADVICE. * B/L Lower extremity bilateral DVT, bilateral PE s/p IVC Filter placement: Patient was recently admitted for bilateral lower extremity DVTs and PE. Because he needed to have a hemicolectomy, an IVC filter was placed by vascular surgery. original plan was xaralto 15 mg twice daily for 1 more week and then start 20 mg daily, however now on hold as above due to GI bleed. Lovenox 100mg SC BID discontinued as above. * Hypertension- Held amlodipine and losartan on 02/20 overnight due to GI bleed/ melena as above. Pending restart once stablized on h/h. * Chronic back pain - Continue pain control Patient is very depressed. We will continue current management appreciate psych recommendations. We will also liberalize his diet given his multiple reasons to be depressed and desire to have regular food, I think this is reasonable. #full code #DVT prophylaxis none 2/2 GI bleed Problem List: 1. Depression Pain Ratin Pain Location: no Pain Goal: Remain pain free Pain Plan: see a/p Tomorrow's Labs & Rationales: cbc, bep
[2018-02-22 13:50] VITALS: BP 140/80
[2018-02-22 22:21] VITALS: BP 140/60
[2018-02-23 07:40] VITALS: BP 144/60
--- NOTE | 2018-02-23 09:04 | PN- Housestaff ---
See Addendum Subjective Follow-up For: Stroke, type II AR, stage IV colon cancer, history of DVT/PE, suicidal ideation Subjective: No overnight events. The patient is very agitated this morning and asking to go home. He does not want to answer other questions. Review of Systems Constitutional: Reports: no symptoms. EENTM: Reports: no symptoms. Cardiovascular: Reports: no symptoms. Respiratory: Reports: no symptoms. Gastrointestinal: Reports: no symptoms. Genitourinary: Reports: no symptoms. Musculoskeletal: Reports: no symptoms. Skin: Reports: no symptoms. Neurological/Psychological: Reports: see HPI. Hematologic/Endocrine: Reports: no symptoms. Immunologic/Allergic: Reports: no symptoms. Objective Last 24 Hrs of Vital Signs/I&O Vital Signs Date Time Temp Pulse Resp B/P B/P Pulse O2 O2 Flow FiO2 Mean Ox Delivery Rate 02/23 0740 98.0 109 20 144/60 98 Room Air 02/22 2221 98.2 90 18 140/60 98 Room Air 02/22 1350 98.0 78 20 140/80 98 Room Air Intake & Output 02/23 1600 02/23 0800 02/23 0000 Intake Total 200 100 Output Total Balance 200 100 Intake, Oral 200 100 Patient 93.157 kg Weight Weight Bed scale Measurement Method Physical Exam General Appearance: Alert, Oriented X3, No Acute Distress Cardiovascular: Regular Rate, Normal S1, Normal S2 Lungs: Clear to Auscultation Abdomen: Normal Bowel Sounds, Soft, No Tenderness Current Medications: Current Medications Sig/Natalee Start time Last Medication Dose Route Stop Time Status Admin Aspirin Buffered 81 MG DAILY 02/17 1000 AC 02/22 PO 0929 Atorvastatin Calcium 40 MG 1700 02/12 0300 02/22 PO 1725 Cyclobenzaprine HCl 10 MG TID PRN 02/12 1545 AC 02/22 PO 1359 Docusate Sodium 100 MG DAILY NEEDED PRN 02/13 1915 AC PO Escitalopram Oxalate 10 MG DAILY 02/22 1000 AC 02/22 PO 0929 Gabapentin 200 MG TID 02/19 1120 AC 02/22 PO 2150 Lidocaine 1 PAT DAILY 02/13 1000 AC 02/20 EXT 0931 Morphine Sulfate 2 MG Q6-PRN PRN 02/12 1745 02/20 IV 1321 Omeprazole 40 MG DAILY AC 02/17 0045 AC 02/23 PO 0553 Oxycodone/ 2 TAB Q6P PRN 02/21 1730 AC 02/23 Acetaminophen PO 0043 Oxycodone/ 1 TAB Q4P PRN 02/12 1745 AC 02/22 Acetaminophen PO 1359 Ramelteon 8 MG .STK-MED ONE 02/22 2147 DC PO 02/22 2148 Ramelteon 8 MG AT BEDTIME NEED.. 02/14 2115 AC 02/22 PO 2150 Senna 187 MG AT BEDTIME PRN 02/13 1915 AC 02/14 PO 0746 Senna/Docusate Sodium 2 TAB QPM 02/15 2200 AC 02/22 PO 2150 Simethicone 80 MG Q4P PRN 02/15 0300 AC 02/15 PO 0335 Last 24 Hrs of Lab/Marlon Results Last 24 Hrs of Labs/Mics: Laboratory Tests 02/23/18 0755: Sodium Pending, Potassium Pending, Chloride Pending, Carbon Dioxide Pending, Anion Gap Pending, BUN Pending, Creatinine Pending, BUN/Creatinine Ratio Pending , CBC w Diff Pending, WBC Pending, RBC Pending, Hgb Pending, Hct Pending, MCV Pending, MCH Pending, MCHC Pending, RDW Pending, Plt Count Pending, MPV Pending Assessment/Plan Assessment: Mr. Salter is a 67-year-old male with past medical history significant for hypertension, hyperlipidemia, alcohol induced pancreatitis, osteoarthritis, bilateral lower extremity DVT, bilateral unprovoked pulmonary embolism on Xarelto 15 twice daily, colon cancer status post resection presented to the emergency department with chief complaint of change in speech since 02/11/2018 8 AM, and RUE stiffness found to have a CVA. Assessment and plan: * Melena-monitor CBC. Today hemoglobin 8.8 with a hematocrit of 27.1. Lovenox on hold. Continue aspirin. GI was on board. Suggested not to repeat the colonoscopy. Patient is on heart healthy diet. * CVA-MRI head multiple areas of restricted diffusion in the cerebellar hemisphere in the by lateral frontoparietal regions consistent with areas of infarction. Patient is on aspirin and Lipitor. Continue neuro checks and maintain fall precaution. PT/OT on board. He was evaluated and recommended short-term rehabilitation. Patient will be seen by psychiatry regarding discharge disposition aided to acute rehabilitation/GERIATRIC PSYCH placement. * Elevated troponin-resolved. Echo done shows normal ejection fraction of 55%. Appreciate cardiology recommendations * Stage IV colon cancer with liver metastasis-oncology on board who suggested a bone scan outpatient, for PORT placement in 4-6 weeks, chemotherapy with FOLFOX. * Suicidal ideation psychiatry on Board. Suggested not to discharge him AGAINST MEDICAL ADVICE. * B/L Lower extremity bilateral DVT, bilateral PE s/p IVC Filter placement: Patient was recently admitted for bilateral lower extremity DVTs and PE. Because he needed to have a hemicolectomy, an IVC filter was placed by vascular surgery. original plan was xaralto 15 mg twice daily for 1 more week and then start 20 mg daily, however now on hold as above due to GI bleed. Lovenox 100mg SC BID discontinued as above. * Hypertension- Held amlodipine and losartan on 02/20 overnight due to GI bleed/ melena as above. Pending restart once stablized on h/h. * Chronic back pain - Continue pain control Patient is very agitated. We will continue current management appreciate oncology and psychiatry recommendations. #full code #DVT prophylaxis none 2/2 GI bleed Problem List: 1. Depression Pain Ratin Pain Location: no Pain Goal: Remain pain free Pain Plan: see a/p Tomorrow's Labs & Rationales: no
[2018-02-23 11:06] LABS: ABSOLUTE BASOPHIL COUNT 0.1 /CUMM (0.0-0.2); ABSOLUTE EOSINOPHIL COUNT 0.7 /CUMM (0.0-0.7); ABSOLUTE LYMPH COUNT 0.9 /CUMM (1.2-3.4); ABSOLUTE MONOCYTE COUNT 0.8 /CUMM (0.10-0.60); BASOPHIL % 0.6 % (0.0-2.0); EOSINOPHIL % 6.5 % (0-5); GRANULOCYTE % 76.1 % (42.2-75.2); HEMATOCRIT 25.2 % (42-52); MEAN CORPUSCULAR HGB 26.3 PG (27.0-31.0); MEAN CORPUSCULAR HGB CONC 32.5 G/DL (33.0-37.0); MEAN CORPUSCULAR VOLUME 80.8 FL (80.0-94.0); MEAN PLATELET VOLUME 8.7 FL (7.4-10.4); PLATELET COUNT 270 /CUMM (130-400); RBC DISTRIBUTION WIDTH 16.1 % (11.5-14.5); RED BLOOD CELL CT 3.12 /CUMM (4.70-6.10); WHITE BLOOD CELL COUNT 10.6 /CUMM (4.8-10.8)
[2018-02-23 15:26] VITALS: BP 140/54
[2018-02-23 22:03] VITALS: BP 146/60
--- NOTE | 2018-02-24 06:25 | PN- Housestaff ---
Yoni CORTES,Geri 02/24/18 0624: Subjective Follow-up For: Stroke Elevated troponin-resolved Stage IV colon cancer with liver metastasis History of Bilateral DVT and PE on xeralto. Complaints: abd cramps Subjective: Patient seen and examined at bedside. Patient is upset that he wants to go home and at the same time he complains of abdominal cramps. He complains of constipation and said his last bowel movement was 4-5 days ago. Review of Systems Constitutional: Reports: no symptoms. Cardiovascular: Reports: no symptoms. Respiratory: Reports: no symptoms. Gastrointestinal: Reports: abdominal pain. Genitourinary: Reports: no symptoms. Musculoskeletal: Reports: no symptoms. Skin: Reports: no symptoms. Objective Last 24 Hrs of Vital Signs/I&O Vital Signs Date Time Temp Pulse Resp B/P B/P Pulse O2 O2 Flow FiO2 Mean Ox Delivery Rate 02/24 0644 97.8 85 20 140/68 98 Room Air 02/24 0000 98 Room Air 02/23 2203 97.8 75 20 146/60 98 Room Air 02/23 1526 97.8 81 20 140/54 98 Intake & Output 02/24 1600 02/24 0800 02/24 0000 Intake Total 50 800 Output Total Balance 50 800 Intake, IV 0 Intake, Oral 50 800 Number 0 Bowel Movements Patient 204 lb Weight Weight Bed scale Measurement Method Physical Exam General Appearance: Alert, Oriented X3, stressed and upset and wanted to go home Cardiovascular: Regular Rate, Normal S1, Normal S2 Lungs: Clear to Auscultation Abdomen: Soft, No Tenderness, No Hepatospenomegaly Neurological: Normal Speech, Strength at 5/5 X4 Ext, Normal Tone, Sensation Intact Extremities: No Cyanosis, No Edema, Normal Pulses Current Medications: Current Medications Sig/Natalee Start time Last Medication Dose Route Stop Time Status Admin Aspirin Buffered 81 MG DAILY 02/17 1000 AC 02/24 PO 1019 Atorvastatin Calcium 40 MG 1700 02/12 0300 AC 02/23 PO 1530 Cyclobenzaprine HCl 10 MG TID PRN 02/12 1545 AC 02/23 PO 2103 Dicyclomine HCl 10 MG ONCE ONE 02/24 0745 DC 02/24 IM 02/24 0746 0754 Docusate Sodium 100 MG DAILY NEEDED PRN 02/13 1915 AC PO Escitalopram Oxalate 10 MG DAILY 02/22 1000 AC 02/24 PO 1019 Gabapentin 200 MG TID 02/19 1120 AC 02/24 PO 1019 Lidocaine 1 PAT DAILY 02/13 1000 AC 02/23 EXT 1017 Losartan Potassium 50 MG DAILY 02/24 1130 UNVr PO Morphine Sulfate 2 MG Q6-PRN PRN 02/12 1745 AC 02/20 IV 1321 Omeprazole 40 MG DAILY AC 02/17 0045 AC 02/24 PO 0618 Oxycodone/ 2 TAB Q6P PRN 02/21 1730 AC 02/23 Acetaminophen PO 2046 Oxycodone/ 1 TAB Q4P PRN 02/12 1745 AC 02/22 Acetaminophen PO 1359 Patient Medication 1 ED ONE ONE 02/24 1045 DC Teaching ED 02/24 1046 Polyethylene Glycol 17 GM DAILY 02/24 1000 AC 02/24 PO 1019 Ramelteon 8 MG AT BEDTIME NEED.. 02/14 2115 AC 02/22 PO 2150 Senna 187 MG AT BEDTIME PRN 02/13 1915 AC 02/14 PO 0746 Senna/Docusate Sodium 2 TAB QPM 02/15 2200 AC 02/23 PO 2046 Simethicone 80 MG Q4P PRN 02/15 0300 AC 02/24 PO 0754 Lines/Diet/Fluids Restraints: sitter Assessment/Plan Assessment: Mr. Salter is a 67-year-old male with past medical history significant for hypertension, hyperlipidemia, alcohol induced pancreatitis, osteoarthritis, bilateral lower extremity DVT, bilateral unprovoked pulmonary embolism on Xarelto 15 twice daily, colon cancer status post resection presented to the emergency department with chief complaint of change in speech since 02/11/2018 8 AM, and RUE stiffness found to have a CVA. Assessment and plan: * Melena-monitor CBC. Today hemoglobin 8.2 Lovenox on hold. Continue aspirin. GI is on board. Suggested not to repeat the colonoscopy. Patient is on heart healthy diet. * CVA-MRI head multiple areas of restricted diffusion in the cerebellar hemisphere in the by lateral frontoparietal regions consistent with areas of infarction. Patient is on aspirin and Lipitor. Continue neuro checks and maintain fall precaution. PT/OT on board. * Elevated troponin-resolved. Echo done shows normal ejection fraction of 55%. Appreciate cardiology recommendations * Stage IV colon cancer with liver metastasis-oncology on board who suggested bone scan as outpatient, for PORT placement in 4-6 weeks, chemotherapy with FOLFOX. * Suicidal ideation- psychiatry on Board. Suggested not to discharge him AGAINST MEDICAL ADVICE. * B/L Lower extremity bilateral DVT, bilateral PE s/p IVC Filter placement: Patient was recently admitted for bilateral lower extremity DVTs and PE. Because he needed to have a hemicolectomy, an IVC filter was placed by vascular surgery. original plan was xaralto 15 mg twice daily for 1 more week and then start 20 mg daily, however now on hold as above due to GI bleed. Lovenox 100mg SC BID discontinued as above. * Suicidal ideation-patient was evaluated by psychiatry who suggested that patient doesn't have capacity and appears confused/agitated. His Lexapro was increased to 10 mg daily. His capacity to make disposition and is final discharge disposition will be evaluated by psychiatry. Appreciate psychiatry follow-up. * Hypertension- Held amlodipine and losartan on 02/20 overnight due to GI bleed/ melena as above. Pending restart once stablized on h/h. * Chronic back pain - Continue pain control Patient is very agitated. We will continue current management appreciate oncology and psychiatry recommendations. #full code #DVT prophylaxis none 2/2 GI bleed #Diet-regular diet( patient was suggested chopped diet by speech therapist but the patient was agitated about this chopped diet. Hence with the attending on board his diet was changed to regular diet chopped with finger food only) Problem List: 1. DVT (deep venous thrombosis) 2. Colon malignancy 3. Depression 4. Anemia Pain Ratin Pain Location: none Pain Goal: Remain pain free Pain Plan: morphine Tomorrow's Labs & Rationales: cbc,bep Alonso CORTES,Bianca 02/24/18 1238: Attending MD Review Statement Attending Statement Attending MD Statement: examined this patient, discuss w/resident/PA/CONDENSER TESTER, agreed w/resident/PA/CONDENSER TESTER, discussed with family, reviewed EMR data (avail), discussed with nursing, discussed with case mgmt, reviewed images, amended to note Attending Assessment/Plan: Patient seen and examined, was upset about being here. Also c/o some stomach upset/gas. Vital Signs Date Time Temp Pulse Resp B/P B/P Pulse O2 O2 Flow FiO2 Mean Ox Delivery Rate 02/24 0644 97.8 85 20 140/68 98 Room Air 02/24 0000 98 Room Air 02/23 2203 97.8 75 20 146/60 98 Room Air 02/23 1526 97.8 81 20 140/54 98 on exam; aox3, nad. cv; s1, s2, rrr resp; clear abd; soft, nt, bs+ ext; no edema no labs today. A/P: Mr. Salter is a 67-year-old male with past medical history significant for hypertension, hyperlipidemia, alcohol induced pancreatitis, osteoarthritis, bilateral lower extremity DVT, bilateral unprovoked pulmonary embolism on Xarelto 15 twice daily, colon cancer status post resection admitted with Ischemic CVA, Elevated trops, Also had Melena, Suicide attempt. Patient still needs 1:1 sitter. Continue Simethicone, PPI. Now Off of Xarelto, On ASA. Pt will be seen by Psych again today. His Dispo plan is not clear yet. BP better , Will resume Losartan at half the dose today. Continue Statin. Patient also constipated. Will start Bowel regimen. DVt px; ALPS. Will d/w CM about the dispo>
[2018-02-24 06:44] VITALS: BP 140/68
--- NOTE | 2018-02-24 07:40 | PN- Oncology ---
Subjective Subjective: He is calmer this morning. He reports some abdominal cramping. He denies any fever or chills. He is constipated. He has no new bleeding. Review of Systems Constitutional: Denies: chills, fever. Cardiovascular: Denies: chest pain. Gastrointestinal: Reports: abdominal pain (cramping). Musculoskeletal: Reports: back pain. Neurological/Psychological: Reports: anxiety, confusion, other (dysarthria). Hematologic/Endocrine: Denies: bruising, bleeding. All Other Systems: Reviewed and Negative Objective Vital Signs and I&Os Vital Signs Date Time Temp Pulse Resp B/P B/P Pulse O2 O2 Flow FiO2 Mean Ox Delivery Rate 02/24 0644 97.8 85 20 140/68 98 Room Air 02/24 0000 98 Room Air 02/23 2203 97.8 75 20 146/60 98 Room Air 02/23 1526 97.8 81 20 140/54 98 02/23 0740 98.0 109 20 144/60 98 Room Air Intake & Output 02/24 0800 02/24 0000 02/23 1600 02/23 0802/23 0000 02/22 1600 Intake Total 800 200 100 160 Output Total Balance 800 200 100 160 Intake, Oral 800 200 100 160 Patient 92.731 kg 93.157 kg Weight Weight Bed scale Bed scale Measurement Method Physical Exam: General Appearance: no apparent distress, comfortable, calmer, agitated Head: atraumatic, normal appearance Respiratory: normal breath sounds, chest non-tender, no respiratory distress, quiet respiration Cardiovascular: regular rate/rhythm Abdomen: soft, tenderness (around incision), midline incision healing well Extremities: no edema, dry blood in nails Neurologic/Psychiatric: awake, alert, oriented x 3, apraxia and dysartheria stable Current Medications: Current Medications Sig/Natalee Start time Last Medication Dose Route Stop Time Status Admin Aspirin Buffered 81 MG DAILY 02/17 1000 AC 02/23 PO 1014 Atorvastatin Calcium 40 MG 1700 02/12 0300 AC 02/23 PO 1530 Cyclobenzaprine HCl 5 MG .STK-MED ONE 02/23 1012 DC PO 02/23 1013 Cyclobenzaprine HCl 5 MG .STK-MED ONE 02/23 1011 DC PO 02/23 1012 Cyclobenzaprine HCl 10 MG TID PRN 02/12 1545 AC 02/23 PO 2103 Dicyclomine HCl 10 MG ONCE ONE 02/24 0745 UNVr IM 02/24 0746 Docusate Sodium 100 MG DAILY NEEDED PRN 02/13 191 AC PO Escitalopram Oxalate 10 MG DAILY 02/22 1000 AC 02/23 PO 1014 Gabapentin 200 MG TID 02/19 1120 AC 02/23 PO 2046 Lidocaine 1 PAT DAILY 02/13 1000 AC 02/23 EXT 1017 Morphine Sulfate 2 MG Q6-PRN PRN 02/12 1745 AC 02/20 IV 1321 Omeprazole 40 MG DAILY AC 02/17 0045 AC 02/24 PO 0618 Oxycodone/ 2 TAB Q6P PRN 02/21 1730 AC 02/23 Acetaminophen PO 204 Oxycodone/ 1 TAB Q4P PRN 02/12 174 AC 02/22 Acetaminophen PO 1359 Ramelteon 8 MG AT BEDTIME NEED.. 02/14 2115 AC 02/22 PO 2150 Senna 187 MG AT BEDTIME PRN 02/13 1915 AC 02/14 PO 0746 Senna/Docusate Sodium 2 TAB QPM 02/15 2200 AC 02/23 PO 2046 Simethicone 80 MG Q4P PRN 02/15 0300 AC 02/15 PO 0335 Results Last 24 Hours of Lab Results: Laboratory Tests 02/23 02/23 1016 0755 Chemistry Sodium (137 - 145 mmol/L) 138 Potassium (3.5 - 5.1 mmol/L) 3.5 Chloride (98 - 107 mmol/L) 100 Carbon Dioxide (22 - 30 mmol/L) 25 Anion Gap (5 - 16) 13 BUN (9 - 20 mg/dL) 15 Creatinine (0.7 - 1.2 mg/dL) 0.7 Estimated GFR (>60 ml/min) > 60 BUN/Creatinine Ratio (7 - 25 %) 21.4 Hematology WBC (4.8 - 10.8 /CUMM) 10.6 RBC (4.70 - 6.10 /CUMM) 3.12 L Hgb (14.0 - 18.0 G/DL) 8.2 L Hct (42 - 52 %) 25.2 L MCV (80.0 - 94.0 FL) 80.8 MCH (27.0 - 31.0 PG) 26.3 L MCHC (33.0 - 37.0 G/DL) 32.5 L RDW (11.5 - 14.5 %) 16.1 H Plt Count (130 - 400 /CUMM) 270 MPV (7.4 - 10.4 FL) 8.7 Gran % (42.2 - 75.2 %) 76.1 H Lymphocytes % (20.5 - 51.1 %) 8.8 L Monocytes % (1.7 - 9.3 %) 8.0 Eosinophils % (0 - 5 %) 6.5 H Basophils % (0.0 - 2.0 %) 0.6 Absolute Granulocytes (1.4 - 6.5 /CUMM) 8.0 H Absolute Lymphocytes (1.2 - 3.4 /CUMM) 0.9 L Absolute Monocytes (0.10 - 0.60 /CUMM) 0.8 H Absolute Eosinophils (0.0 - 0.7 /CUMM) 0.7 Absolute Basophils (0.0 - 0.2 /CUMM) 0.1 Assessment/Plan Assessment/Recommendations: Mr. Salter is a 67-year-old male with HTN, HLD, EtOH pancreatitis, OA, DVT/PE s /p IVC filter and currently on rivaroxaban, and stage IV adenocarcinoma of the colon with metastases to the liver s/p right hemicolectomy who presented with word finding difficulty, slurred speech, and right sided weakness. CT head without contrast and CTA head were done and was unremarkable. He has no obvious metastatic disease or ICH. MRI brain is demonstrated multiple areas of restricted diffusion in the cerebellar hemispheres and in the bilateral frontoparietal regions. MRI lumbar demonstrated no evidence of metastatic disease. He has no evidence of hemorrhagic transformation. Breathing is stable. His anemia is stable. He has not had any more bleeding. He is on aspirin. Psychiatry is following patient for depression, agitation, and SI. He has no SI at the moment. With regard to his metastatic colon cancer, his tumor is KRAS/BRAF wild type and GERDA. He would be a candidate for FOLFOX. He will need port placement. Bone scan can be done as an outpatient. Depression/SI: -psychiatry following GI Bleeding: -CBC stable -hold off on anticoagulation -continue ASA for now, hold if bleeding CVA: -neurology following -continue ASA -pending STR Metastatic colon cancer: -bone scan to evaluate for metastatic disease, may be done as outpatient -port placement needed -outpatient chemotherapy in the next 1-2 weeks -follow up as outpatient DVT/PE: -IVC filter in place -off anticoagulation due to hemodynamically unstable and recurrent GI bleeding Please call [phone] with any questions or concerns. Problem List: 1. Pulmonary emboli 2. DVT (deep venous thrombosis) 3. Gastrointestinal bleeding 4. Adenocarcinoma of colon metastatic to liver 5. CVA (cerebral vascular accident) 6. Depression
[2018-02-24] MEDS ORDERED: LOSARTAN POTASS50 M1 PO (14:06)
[2018-02-24] MEDS ORDERED: OMEPRAZOLE20 M2 PO (14:06)
[2018-02-24] MEDS ORDERED: MIRALAX119 GM PO (14:06)
[2018-02-24] MEDS ORDERED: SENNA PLUS TAB1 EACH PO (14:06)
[2018-02-24] MEDS ORDERED: ATORVASTATIN CA40 M1 PO (14:06)
[2018-02-24] MEDS ORDERED: ASPIRIN EC81 M1 PO (14:06)
[2018-02-24] MEDS ORDERED: LIDODERM1 EACH EXT (14:06)
[2018-02-24] MEDS ORDERED: GABAPENTIN100 M2 PO (14:07)
[2018-02-24 14:42] VITALS: BP 140/62
--- NOTE | 2018-02-24 16:57 | PN- Psychiatry ---
Assessment/Plan Impression: We appreciate Dr. Salazar's psychiatry follow-up note of 02/21/18. The patient became agitated today, requiring the placement of a safety monitor. I spoke with the patient's , Rowena Peoples, today, , who reports that Saturday and Saturday were good, and she was surprised that the patient had a sitter again today. She reports that at home he is not a very patient person but not combative. He is usually willing to vocalize his opinions. She reports that she has no concerns for his safety with him coming home. The patient's mood is not at baseline, per discussion with his . She believes that his frustration with staff in the hospital is causing his agitation, yelling and swearing. She reports his behavior at home, before his recent diagnosis with cancer as being impatient, but able to handle stressors. He has poor insight into his change of mood and his irritability. We are concerned that patients who have experienced a stroke, become depressed, and may have alterations in mental status, including irritability, after such an event. Our concern extends to how he might behave at short-term rehabilitation or at home, if frustrated in those situations. Although we have determined through questioning the patient and his that there are no guns available in the house, he still might feel hurt himself. After reviewing this case again with Kofi Steinberg MD, chair psychiatry, we feel that the patient would benefit from transfer to geriatric psychiatry, where not only his mood might be stabilized, but perhaps any neurocognitive symptoms addressed as well. The patient was witnessed making a suicide attempt, stating that he wanted to , and he should be stabilized in a geriatric psychiatry facility before transfer to [facility]. Suggestion: 1. The patient will need transfer to a geriatric psychiatry, when he is medically clear. There is a physician's emergency certificate in the chart. 2. If the patient becomes severely or dangerously agitated, please consider haloperidol 0.5 mg by mouth every 12 hours as needed. If the patient cannot take PO, please order IM. Hold for oversedation or respiratory depression. Hold for hypokalemia or hypomagnesemia. Hold for QTC greater than 475 ms. Please try redirection first before using this medication. 3. Please continue escitalopram 10 mg by mouth daily. Monitor for hyponatremia , QTC prolongation, or suicidal ideation. 4. Please maintain the continuous safety monitor. 5. As before, we would like the patient to come to [place] [facility] outpatient psychiatry. Please ask the receiving facility to call and make an appointment for him when his discharge date is known, [phone]. 6. The patient may not leave the hospital, AMA, or otherwise, other than a transfer to geriatric psychiatry facility. We will continue to follow along with you. Subjective Subjective: The patient is lying on his bed and is calm and conversational at the beginning of the interview. He is alert and oriented to person, place, month, day, date, but not year. He denies hallucinations. He states that he only received 4 hours of sleep last night. He is currently complaining about stomach pain, related constipation. He verbalizes understanding that some pain medications, such as Percocet, can have a side effect of causing constipation. The patient states that he has been taking Percocet for his back pain, however his back pain is gone, per his report. As the interview progressed, the patient became increasingly irritable, without yelling or swearing. He does not have appreciation of our concern at this point about being seen with the nurse call cord wrapped around his neck last week, and stating that he wanted to . The patient states that he was diagnosed with cancer, had that addressed with surgery, had his stroke, and having gone through all that, "everything is my fault now." He also reports that his , Rowena Peoples, "listens to you and takes your side." He states that he is willing to do what he needs to do, and to remain calm, in order to return home, and continue with his life. He denies suicidal or homicidal ideation. Review of Systems Neurological/Psychological: Reports: see HPI. Objective Last 24 Hrs of Vital Signs/I&O Vital Signs Date Time Temp Pulse Resp B/P B/P Pulse O2 O2 Flow FiO2 Mean Ox Delivery Rate 02/24 1442 98.8 87 18 140/62 96 Room Air 02/24 1245 142/70 02/24 0644 97.8 85 20 140/68 98 Room Air 02/24 0000 98 Room Air 02/23 2203 97.8 75 20 146/60 98 Room Air Intake & Output 02/24 1600 02/24 0800 02/24 0000 Intake Total 100 50 800 Output Total Balance 100 50 800 Intake, IV 0 Intake, Oral 100 50 800 Number 0 Bowel Movements Patient 204 lb Weight Weight Bed scale Measurement Method Physical Exam: Not performed Physical Exam General Appearance: alert, awake, anxious Neurologic/Psychiatric: awake, alert, oriented x 3, depressed affect Current Medications: Current Medications Sig/Natalee Start time Last Medication Dose Route Stop Time Status Admin Aspirin Buffered 81 MG DAILY 02/17 1000 AC 02/24 PO 1019 Atorvastatin Calcium 40 MG 1700 02/12 0300 AC 02/24 PO 1917 Cyclobenzaprine HCl 10 MG TID PRN 02/12 1545 AC 02/23 PO 2103 Dicyclomine HCl 20 MG 4 TIMES/DAY PRN 02/24 1145 AC 02/24 PO 1245 Dicyclomine HCl 10 MG ONCE ONE 02/24 0745 DC 02/24 IM 02/24 0746 0754 Docusate Sodium 100 MG DAILY NEEDED PRN 02/13 1915 AC PO Escitalopram Oxalate 10 MG DAILY 02/22 1000 AC 02/24 PO 1019 Gabapentin 200 MG TID 02/19 1120 AC 02/24 PO 1601 Lidocaine 1 PAT DAILY 02/13 1000 AC 02/23 EXT 1017 Losartan Potassium 50 MG DAILY 02/24 1130 AC 02/24 PO 1245 Morphine Sulfate 2 MG Q6-PRN PRN 02/12 1745 AC 02/20 IV 1321 Omeprazole 40 MG DAILY AC 02/17 0045 AC 02/24 PO 0618 Oxycodone/ 2 TAB Q6P PRN 02/21 1730 AC 02/24 Acetaminophen PO 1431 Oxycodone/ 1 TAB Q4P PRN 02/12 1745 AC 02/22 Acetaminophen PO 1359 Patient Medication 1 ED ONE ONE 02/24 1045 DC 02/24 Teaching ED 02/24 1046 1246 Polyethylene Glycol 17 GM DAILY 02/24 1000 AC 02/24 PO 1019 Ramelteon 8 MG AT BEDTIME NEED.. 02/14 2115 AC 02/22 PO 2150 Senna 187 MG AT BEDTIME PRN 02/13 1915 AC 02/14 PO 0746 Senna/Docusate Sodium 2 TAB QPM 02/15 2200 AC 02/23 PO 2046 Simethicone 80 MG Q4P PRN 02/15 0300 AC 02/24 PO 1432
[2018-02-24 22:22] VITALS: BP 130/58
--- NOTE | 2018-02-25 07:20 | PN- Housestaff ---
Subjective Follow-up For: Stroke Elevated troponin-resolved Stage IV colon cancer with liver metastasis History of Bilateral DVT and PE Complaints: no complaints Subjective: Patient was seen and examined at bedside. No overnight events. Patient MOOD appears better today. Complaints of constipation. Sitting by the bedside. He denies chest pain, chest pressure, nausea, vomiting, abdominal pain Review of Systems Constitutional: Reports: no symptoms. Cardiovascular: Reports: no symptoms. Respiratory: Reports: no symptoms. Gastrointestinal: Reports: no symptoms. Genitourinary: Reports: no symptoms. Objective Last 24 Hrs of Vital Signs/I&O Vital Signs Date Time Temp Pulse Resp B/P B/P Pulse O2 O2 Flow FiO2 Mean Ox Delivery Rate 02/24 2222 98.7 89 18 130/58 99 Room Air 02/24 1442 98.8 87 18 140/62 96 Room Air 02/24 1245 142/70 Intake & Output 02/25 1600 02/25 0800 02/25 0000 Intake Total 250 800 Output Total Balance 250 800 Intake, IV 10 Intake, Oral 240 800 Physical Exam General Appearance: Alert, Oriented X3, Cooperative, No Acute Distress Cardiovascular: Regular Rate, Normal S1, Normal S2, No Murmurs Lungs: Clear to Auscultation, Normal Air Movement Abdomen: Soft, No Tenderness, No Hepatospenomegaly, No Masses Neurological: Normal Speech, Strength at 5/5 X4 Ext Current Medications: Current Medications Sig/Natalee Start time Last Medication Dose Route Stop Time Status Admin Aspirin Buffered 81 MG DAILY 02/17 1000 AC 02/25 PO 1041 Atorvastatin Calcium 40 MG 1700 02/12 0300 AC 02/24 PO 1917 Cyclobenzaprine HCl 10 MG TID PRN 02/12 1545 AC 02/25 PO 1121 Dicyclomine HCl 20 MG 4 TIMES/DAY PRN 02/24 1145 AC 02/24 PO 1245 Docusate Sodium 100 MG DAILY NEEDED PRN 02/13 1915 AC PO Escitalopram Oxalate 10 MG DAILY 02/22 1000 AC 02/25 PO 1041 Gabapentin 200 MG TID 02/19 1120 AC 02/25 PO 1041 Lidocaine 1 PAT DAILY 02/13 1000 AC 02/23 EXT 1017 Losartan Potassium 50 MG DAILY 02/24 1130 AC 02/25 PO 1041 Morphine Sulfate 2 MG Q6-PRN PRN 02/12 1745 DC 02/20 IV 1321 Omeprazole 40 MG DAILY AC 02/17 0045 AC 02/25 PO 1040 Oxycodone/ 2 TAB Q6P PRN 02/21 1730 AC 02/25 Acetaminophen PO 0212 Oxycodone/ 1 TAB Q4P PRN 02/12 1745 AC 02/22 Acetaminophen PO 1359 Polyethylene Glycol 17 GM DAILY 02/24 1000 AC 02/25 PO 1042 Potassium Chloride 40 MEQ ONCE ONE 02/25 1130 UNVr PO 02/25 1131 Ramelteon 8 MG .STK-MED ONE 02/24 2345 DC PO 02/24 2346 Ramelteon 8 MG AT BEDTIME NEED.. 02/14 2115 AC 02/24 PO 2346 Senna 187 MG AT BEDTIME PRN 02/13 1915 AC 02/14 PO 0746 Senna/Docusate Sodium 2 TAB QPM 02/15 2200 AC 02/24 PO 2013 Simethicone 80 MG Q4P PRN 02/15 0300 AC 02/25 PO 1041 Last 24 Hrs of Lab/Marlon Results Last 24 Hrs of Labs/Mics: Laboratory Tests 02/25/18 0700: Anion Gap 11, Estimated GFR > 60, BUN/Creatinine Ratio 16.3, CBC w Diff NO MAN DIFF REQ, RBC 2.97 L, MCV 81.3, MCH 26.1 L, MCHC 32.1 L, RDW 16.2 H, MPV 8.8 , Gran % 65.5, Lymphocytes % 14.3 L, Monocytes % 10.0 H, Eosinophils % 9.3 H, Basophils % 0.9, Absolute Granulocytes 5.4, Absolute Lymphocytes 1.2, Absolute Monocytes 0.8 H, Absolute Eosinophils 0.8, Absolute Basophils 0.1 Assessment/Plan Assessment: Mr. Salter is a 67-year-old male with past medical history significant for hypertension, hyperlipidemia, alcohol induced pancreatitis, osteoarthritis, bilateral lower extremity DVT, bilateral unprovoked pulmonary embolism on Xarelto 15 twice daily, colon cancer status post resection presented to the emergency department with chief complaint of change in speech since 02/11/2018 8 AM, and RUE stiffness found to have a CVA. Assessment and plan: * Melena-monitor CBC. Today hemoglobin 7.8 Lovenox on hold. Continue aspirin. GI is on board. Suggested not to repeat the colonoscopy. Patient is on heart healthy diet. * CVA-MRI head multiple areas of restricted diffusion in the cerebellar hemisphere in the by lateral frontoparietal regions consistent with areas of infarction. Patient is on aspirin and Lipitor. Continue neuro checks and maintain fall precaution. PT/OT on board. * Elevated troponin-resolved. Echo done shows normal ejection fraction of 55%. Appreciate cardiology recommendations * Stage IV colon cancer with liver metastasis-oncology on board, suggested bone scan as outpatient, for PORT placement in 4-6 weeks, chemotherapy with FOLFOX. * Suicidal ideation- psychiatry on Board. Suggested not to discharge him AGAINST MEDICAL ADVICE. * B/L Lower extremity bilateral DVT, bilateral PE s/p IVC Filter placement: Patient was recently admitted for bilateral lower extremity DVTs and PE. Because he needed to have a hemicolectomy, an IVC filter was placed by vascular surgery. original plan was xaralto 15 mg twice daily for 1 more week and then start 20 mg daily, however now on hold as above due to GI bleed. Lovenox 100mg SC BID discontinued as above. * Suicidal ideation-patient was evaluated by psychiatry who suggested that patient doesn't have capacity and appears confused/agitated. His Lexapro was increased to 10 mg daily. His capacity to make decision and is final discharge disposition will be evaluated by psychiatry. He was seen by psychiatry yesterday who suggested geriatric psych bed placement. Case management on board. Appreciate psychiatry follow-up. * Hypertension- Held amlodipine and losartan on 02/20 overnight due to GI bleed/ melena as above. Pending restart once stablized on h/h. * Chronic back pain - Continue pain control * Constipation-patient didn't have bowel movements for the past 5 days. Patient is on bowel regimen. If needed we can give supposistory. Patient is very agitated. We will continue current management appreciate oncology and psychiatry recommendations. #full code #DVT prophylaxis none 2/2 GI bleed #Diet-regular diet Problem List: 1. Depression 2. Colon malignancy 3. Anemia 4. Gastrointestinal bleeding Pain Ratin Pain Location: none Pain Goal: Remain pain free Pain Plan: tylenol Tomorrow's Labs & Rationales: none
[2018-02-25 08:37] LABS: ABSOLUTE BASOPHIL COUNT 0.1 /CUMM (0.0-0.2); ABSOLUTE EOSINOPHIL COUNT 0.8 /CUMM (0.0-0.7); ABSOLUTE GRANULOCYTE CT 5.4 /CUMM (1.4-6.5); ABSOLUTE LYMPH COUNT 1.2 /CUMM (1.2-3.4); ABSOLUTE MONOCYTE COUNT 0.8 /CUMM (0.10-0.60); BASOPHIL % 0.9 % (0.0-2.0); EOSINOPHIL % 9.3 % (0-5); GRANULOCYTE % 65.5 % (42.2-75.2); HEMATOCRIT 24.1 % (42-52); MEAN CORPUSCULAR HGB 26.1 PG (27.0-31.0); MEAN CORPUSCULAR HGB CONC 32.1 G/DL (33.0-37.0); MEAN CORPUSCULAR VOLUME 81.3 FL (80.0-94.0); MEAN PLATELET VOLUME 8.8 FL (7.4-10.4); PLATELET COUNT 214 /CUMM (130-400); RBC DISTRIBUTION WIDTH 16.2 % (11.5-14.5); RED BLOOD CELL CT 2.97 /CUMM (4.70-6.10); WHITE BLOOD CELL COUNT 8.2 /CUMM (4.8-10.8)
--- NOTE | 2018-02-25 11:36 | PN- Att Addend ---
Attending Addendum Attending Brief Note Patient seen and examined, denies any complaints. Still constipated. Does not want suppository yet. Vital Signs Date Time Temp Pulse Resp B/P B/P Pulse O2 O2 Flow FiO2 Mean Ox Delivery Rate 02/24 2222 98.7 89 18 130/58 99 Room Air 02/24 1442 98.8 87 18 140/62 96 Room Air 02/24 1245 142/70 on exam; awake, nad. Has a sitter. cv; s1,s2, rrr resp; clear abd; soft, nt, bs+ ext; no edema Laboratory Tests 02/25 0700 Chemistry Sodium (137 - 145 mmol/L) 137 Potassium (3.5 - 5.1 mmol/L) 3.4 L Chloride (98 - 107 mmol/L) 99 Carbon Dioxide (22 - 30 mmol/L) 28 Anion Gap (5 - 16) 11 BUN (9 - 20 mg/dL) 13 Creatinine (0.7 - 1.2 mg/dL) 0.8 Estimated GFR (>60 ml/min) > 60 BUN/Creatinine Ratio (7 - 25 %) 16.3 Hematology CBC w Diff NO MAN DIFF REQ WBC (4.8 - 10.8 /CUMM) 8.2 RBC (4.70 - 6.10 /CUMM) 2.97 L Hgb (14.0 - 18.0 G/DL) 7.8 L Hct (42 - 52 %) 24.1 L MCV (80.0 - 94.0 FL) 81.3 MCH (27.0 - 31.0 PG) 26.1 L MCHC (33.0 - 37.0 G/DL) 32.1 L RDW (11.5 - 14.5 %) 16.2 H Plt Count (130 - 400 /CUMM) 214 MPV (7.4 - 10.4 FL) 8.8 Gran % (42.2 - 75.2 %) 65.5 Lymphocytes % (20.5 - 51.1 %) 14.3 L Monocytes % (1.7 - 9.3 %) 10.0 H Eosinophils % (0 - 5 %) 9.3 H Basophils % (0.0 - 2.0 %) 0.9 Absolute Granulocytes (1.4 - 6.5 /CUMM) 5.4 Absolute Lymphocytes (1.2 - 3.4 /CUMM) 1.2 Absolute Monocytes (0.10 - 0.60 /CUMM) 0.8 H Absolute Eosinophils (0.0 - 0.7 /CUMM) 0.8 Absolute Basophils (0.0 - 0.2 /CUMM) 0.1 A/P: Mr. Salter is a 67-year-old male with past medical history significant for hypertension, hyperlipidemia, alcohol induced pancreatitis, osteoarthritis, bilateral lower extremity DVT, bilateral unprovoked pulmonary embolism on Xarelto 15 twice daily, colon cancer status post resection admitted with Ischemic CVA, Elevated trops, Also had Melena, Suicide attempt. There is a slight drop in H&H today. We'll monitor. If patient continues to drop, will condisder stopping aspirin as recommended by Heme onc. Replete potassium. Patient seen by psychiatry and distal recommended Brian psych. Patient still has one-to-one sitter. He will need to go to a psychiatric unit. Continue all other current meds. DVT px: ALPS.
[2018-02-25 14:03] VITALS: BP 100/68
--- NOTE | 2018-02-25 15:09 | IP CRISIS DIAG ASSESS PSYCH ---
See Addendum Diagnostic Assessment Basic Assessment Insurance Authorization: Insurance #1: Insurance name: MEDICARE A Phone number: Policy number: [id number] Group number: Authorization number: Primary Care Physician: Patient's PCP: Doroteo CORTES,Evan Payne PCP's Patient's Quote: i just rolled over on to the sheet, i did not try to hurt myself. Present Illness: Pt is a 67 yo M/W/M who came to the hospital on from home on 02/11/18 with chief complaint of right side weakness and difficulty speaking ( left side Stroke). Pt recently dx with colon cancer, DVT and PE. please see medical notes. Pt has been seen by Psych Consult service several times and it was determined pt was in need of inpt psych treatment. Geriatric bed was considered but ultimately it was determined by our Physicians that pt would go to our inpt general psych unit. On 02/18/18 6:34, per nursing note, 3 staff witnessed pt with " sheet around his neck as well as attempting to wrap call guthrie light cord around neck. When asked what he was doing and if it was intentional, pt stated 'yes, I don't want to do it anymore, I want to .'" During on going assessment pt has articulated frustration and minimized suicide gesture, shown extreme irritability and mood changes, yelling at staff, his agitation seemed to have impulsive qualities. During MD / SERVICING REP assessments he demonstrated poor insight into mood changes and irritability and his judgement presented as poor to fair. Pt noted once that in regards to his Rowena Peoples "listens to you (MD ) and takes your side". Sw to pt's bed side, finds pt frustrated with MDs wanting him to go to inpt psych to process suicide gesture, stablized his mood and discuss his new medical dx and increase his coping skills. Pt denies SI/HI and there con't to be no overt signs and sx of psychosis. Pt continues to minimize the seriousness of his gesture. Pt's speech is not fully clear and he is laying in his bed moving around in frustration. Pt noted he rolled on to the sheet, not trying to tie it. Limited eye contact asking sw if sw is aware of his medical problems. Pt is told he can come to inpt psych today and tx modality is explained briefly to him. Sw asks pt if sw can speak with his who, is in a lounge area. He agrees. pt is provided with support and feelings are validated. Sw engaged with spouse regarding education on PEC ,admit to inpt psych, tx, and visiting. Support and validation of feelings provided. Prior to speaking with pt and spouse, Sw spoke with RN , Shadi mccartney RN , MD Melissa and MD Alonso ( signed PEC) regarding admission to [facility]. MD Melissa reported MDs had spoke with pt about inpt psych being needed. Case discussed with Psych MD Ashley who agreed with need to admit for safety. Patient's Address: [address] [place] [address] [place] [address] Other Who Do You Live With? Spouse Feel Safe Where You Live? Yes Feel Safe in Your Relationship Yes Marital Status: Do You Have Children? No Primary Language? Malawian Language(s) Spoken At Home: Mal[place]ian Family/Informants Interviewed: spoke with spouse and pt Allergies - Coded Allergies: No Known Allergies (09/13/17) Current Medications - Scheduled Medications Amlodipine Besylate 5 MG TABLET 1 TAB PO DAILY BP #90 (Reported) Entered as Reported by Nakia Cruz on 08/11/17 1519 Aspirin (Ecotrin*) 81 MG TABLET.DR 81 MG PO DAILY HEART #60 TAB Prescribed by Geri Vallejo MD on 02/24/18 Atorvastatin Calcium 40 MG TABLET 40 MG PO 1700 hyperlipidemia #30 TAB Prescribed by Geri Vallejo MD on 02/24/18 Escitalopram Oxalate (Lexapro) 10 MG TABLET 10 MG PO DAILY pain #30 TAB Prescribed by Geri Vallejo MD on 02/25/18 Gabapentin 100 MG CAPSULE 200 MG PO TID pain #90 CAP Prescribed by Geri Vallejo MD on 02/24/18 Lidocaine (Lidoderm) 5 % ADH..PATCH 1 PAT EXT DAILY pain #30 PAT Prescribed by Geri Vallejo MD on 02/24/18 Losartan Potassium 100 MG TABLET 1 TAB PO DAILY BP #90 (Reported) Entered as Reported by Nakia Cruz on 08/11/17 1519 Losartan Potassium 50 MG TABLET 50 MG PO DAILY HTN #30 TAB Prescribed by Geri Vallejo MD on 02/24/18 Meloxicam 7.5 MG TABLET 1 TAB PO DAILY inflammation pain #30 (Reported) Entered as Reported by Suki Torres MD on 01/15/182043 Omeprazole 20 MG CAPSULE.DR 40 MG PO DAILY AC gerd #30 CAP Prescribed by Geri Vallejo MD on 02/24/18 Polyethylene Glycol 3350 (Miralax) 17 GRAM/DOSE POWDER 17 GM PO DAILY constipation #30 POW Prescribed by Geri Vallejo MD on 02/24/18 Rivaroxaban (Xarelto) 15 MG TABLET 1 TAB PO BID pulmonary embolism #42 TAB Prescribed by Meagan Lance MD on 01/18/18 Scheduled PRN Medications Cyclobenzaprine HCl 10 MG TABLET 10 MG PO TID PRN PAIN SCALE 4-6 (MODERATE) # 90 TAB Prescribed by Geri Vallejo MD on 02/25/18 Oxycodone HCl/Acetaminophen (Percocet 5-325 MG Tablet) 5 MG-325 MG TABLET 1 TAB PO Q4P PRN PAIN SCALE 7-10 (SEVERE) #10 TAB Prescribed by Brandi Stein on 02/13/18 Sennosides/Docusate Sodium (Senna Plus Tablet) 8.6 MG-50 MG TABLET 2 TAB PO QPM PRN constipation #60 TAB Prescribed by Geri Vallejo MD on 02/25/18 Consequences of Psych Med Use: psych started med on medical floor Lab Results: Laboratory Tests 02/25/18 0700: Anion Gap 11, Estimated GFR > 60, BUN/Creatinine Ratio 16.3, CBC w Diff NO MAN DIFF REQ, RBC 2.97 L, MCV 81.3, MCH 26.1 L, MCHC 32.1 L, RDW 16.2 H, MPV 8.8 , Gran % 65.5, Lymphocytes % 14.3 L, Monocytes % 10.0 H, Eosinophils % 9.3 H, Basophils % 0.9, Absolute Granulocytes 5.4, Absolute Lymphocytes 1.2, Absolute Monocytes 0.8 H, Absolute Eosinophils 0.8, Absolute Basophils 0.1 Toxicology Screen Completed? No Past History Past Medical History Medical History: None/Denies (CVA, Cancer), HTN Past Surgical History Surgical History rotator cuff repair, right shoulder Abuse/Trauma History Trauma History/Current Trauma: Pt not able to answer these questions Legal History Current Legal Status: none Have you ever been arrested? No Psychosocial History Strengths/Capabilities: Motivated for treatment, supportive spouse. Physical Limitations (Interventions): Right side deficits, dysarthria (Improving) Psychiatric Treatment History Psych Treatment Psychiatric Treatment No (denies) Inpatient Treatment No Outpatient Treatment No Diagnosis by History: F32.9 Major depressive disorder, unspecified r/o Adjustment disorder, unspecified Risk Factors: chronic/serious med cond., male Substance Use/Abuse History Drug Use/Abuse minimum 12mo Hx Substances Used/Abused Yes Substance Used/Abused Alcohol First Use not evaluated Last Used unknown How much used/taken per his spouse, a few beers occasionally at his social club How often occasionally Substance Abuse Treatment Substance Abuse Treatment Past Substance Abuse [place] No Sexual History Sexual Orientation Heterosexual Current Mental Status Mental Status Orientation: person, place, month, year, but off by 2 days (.) Affect: Depressed, Hopeless, Sad Speech: Poverty (dysarthria status post CVA) Neuro-vegetative: Anhedonia, Helpless, Sleep Disturbance Appearance Appearance- Dress/Hygiene: hospital clothing laying in bed Behaviors Thought Process: WNL Thought Content: overwhelmed frustrated Memory: WNL Insight: Poor SI/HI Risk Assessment - Minimum 6mo History- Current Suicidal Ideation/Att No ( no reporting) Past Homicidal Ideation/Att: No Current Homicidal Ideation/Attempts No Risk Factors: chronic/serious med cond., male Needs/Init TX Plan/Goals: Assess and monitor safety, mood and medication needs. Pt to take medication as directed, report report SI. Attend groups, build skills andparticipate in discharge planning. sw meeting, consider family meeting. comprehensive psych eval to be completed. AUDIT-C Questionnaire: AUDIT-C Questionnaire: Response Value ETOH use in the past year Monthly or less 1 # drinks typical/day 1 or 2 0 6 or > drinks per occasion Never 0 Total 1 DSM5/PS Stressors/Medical Prob Diagnosis' (DSM 5, Stressors, Medical): depression major disorder , unspecified r/o adjustment d/o Current GAF: 25 Comments: pt to be admitted to [facility] for safety and stablization. Pt discussed with MD Ashley and she will write orders to admit.
[2018-02-25] MEDS ORDERED: LEXAPRO10 M1 PO (15:20)
[2018-02-25] MEDS ORDERED: CYCLOBENZAPRINE10 M1 PO (15:20)
[2018-02-25] MEDS ORDERED: SENNA PLUS TAB1 EACH PO (15:21)
== END 2018-02-25 20:09 | disposition other institution (70) | DRG 65 ==
LOC: ERH 21:17 → 1NO 02-12 01:12 → 2NA 02-12 01:12 → ERHI 02-12 01:12 → ENRESERV 02-12 02:19 → 1NO 02-12 03:39 → ENTRNSPT 02-20 22:29 → 2NA 02-20 22:51 → CMPTRNSPT 02-20 23:00 → 2NA 02-21 08:10
PROVIDERS: Hospitalist; Internal Medicine; Physician Assistant Medical; Student in an Organized Health Care Education/Training Program
PROC: 30233N1 Transfusion of Nonautologous Red Blood Cells into Peripheral Vein, Percutaneous Approach (ICD-10-PCS; principal; 2018-02-17)
DX: I63.412 Cerebral infarction due to embolism of left middle cerebral artery (principal); C18.9 Malignant neoplasm of colon, unspecified; C78.7 Secondary malignant neoplasm of liver and intrahepatic bile duct; I24.8 Other forms of acute ischemic heart disease; I27.82 Chronic pulmonary embolism; K86.0 Alcohol-induced chronic pancreatitis; R45.851 Suicidal ideations; I82.509 Chronic embolism and thrombosis of unspecified deep veins of unspecified lower extremity; K92.2 Gastrointestinal hemorrhage, unspecified; I82.5Z3 Chronic embolism and thrombosis of unspecified deep veins of distal lower extremity, bilateral; R47.01 Aphasia; D50.0 Iron deficiency anemia secondary to blood loss (chronic); G83.21 Monoplegia of upper limb affecting right dominant side; Z86.711 Personal history of pulmonary embolism; Z79.01 Long term (current) use of anticoagulants; F32.9 Major depressive disorder, single episode, unspecified; F43.20 Adjustment disorder, unspecified; I10 Essential (primary) hypertension; E78.5 Hyperlipidemia, unspecified; M19.90 Unspecified osteoarthritis, unspecified site; Z95.9 Presence of cardiac and vascular implant and graft, unspecified; Z90.49 Acquired absence of other specified parts of digestive tract; Z80.0 Family history of malignant neoplasm of digestive organs; M54.9 Dorsalgia, unspecified; Z87.891 Personal history of nicotine dependence; F41.9 Anxiety disorder, unspecified; F34.1 Dysthymic disorder; G47.00 Insomnia, unspecified; K57.30 Diverticulosis of large intestine without perforation or abscess without bleeding; R79.89 Other specified abnormal findings of blood chemistry; M25.641 Stiffness of right hand, not elsewhere classified
CPT/HCPCS: 1NP; 2NAP; 70551; 72148; 36415; 36592; 74174; 82436; 86920; 93005; 93010; 93306; 97110-GO; 97112-GO; 97116-GO; 97161-GP; 97166-GO; 99232; 99233; G0463; J0131; J0500; J1650; J2270; J2405; J3490; P9016

== ENCOUNTER 2018-02-25 16:48 | Inpatient (IN) | payer OTHER, MEDICARE ==
[~2018-02-25] VITALS: Ht 188 cm; Wt 91.4 kg
[~2018-02-25 16:48] MED LIST changes: +ASPIRIN EC81 M1 PO; +ATORVASTATIN CA40 M1 PO; +CYCLOBENZAPRINE10 M1 PO; +GABAPENTIN100 M2 PO; +LEXAPRO10 M1 PO; +LIDODERM1 EACH EXT; +LOSARTAN POTASS50 M1 PO; +MIRALAX119 GM PO; +OMEPRAZOLE20 M2 PO; +PERCOCET 5-3251 EACH PO; +SENNA PLUS TAB1 EACH PO
[2018-02-25 20:42] VITALS: BP 136/56
[2018-02-26 08:50] VITALS: BP 114/56
--- NOTE | 2018-02-26 09:03 | CPS PROVIDER INIT ASMT PSYCH ---
Psychiatric Admission Electric Frying Pan Repairer's Note Reviewed: No (N/A) Patient Seen and Examined: Yes Identifying Information: The patient is a 67-year-old white male who was admitted from the medical floor. Chief Complaint: "I just rolled over on the sheet, I did not try to hurt myself." Reaction to Hospitalization: The patient did not want to be hospitalized and feels that it is a waste of time. History of Present Illness Onset of Illness: The patient reportedly presented to the emergency department on 02/12/2018 and a psych consultation was requested because it was determined that the patient was severely depressed and may have attempted to strangle himself using the sheets. It was reported that 3 staff members witnessed the patient with a sheet around his neck as well as trying to wrap a cord around his neck. Circumstances Leading to Admission: The patient was observed by staff attempting to strangle self with a sheet under court and reportedly when asked why he was doing that he said "I do not want to do it anymore "I want to " Problem(s) Justifying Need for Admission: Suspicion of suicidal behavior/suicide attempt Past Psychiatric History Past Diagnosis(es)- if any: The patient has history of major depressive disorder as well as history of colon cancer history of deep vein thrombosis and pulmonary embolus history of left- sided stroke as well Past Precipitating Factors- if any: It is not clear whether the patient had any previous precipitating factors - Include inpatient and outpatient treatment Treatment History: The patient was not very forthcoming about his past history he reported that he was prescribed the antidepressant the patient was seen by the client the crisis intervention in the emergency room and as well as by the consultation liaison psychiatry when he was on the medical floor. He does not appear the patient has had previous psychiatric admissions History of Suicide Attempts or Gestures Before the recent suicidal behavior it looks like the patient does not have a history of suicide attempts before that Substance Abuse History: The patient denied any history of abusing alcohol or illicit substances. He has quit smoking several years ago according to the notes from the medical floor Allergies: Coded Allergies: No Known Allergies (09/13/17) Home Med List: Amlodipine 5 mg daily aspirin 81 mg daily atorvastatin 40 mg daily Lexapro 10 mg daily gabapentin 200 mg 3 times daily and losartan 100 mg daily meloxicam 7.5 mg daily omeprazole 20 mg daily and Xarelto 15 mg twice daily - Include any medical condition(s) that may - impact the patient's recovery/remission Past Medical History: Colon cancer, deep vein thrombosis, pulmonary embolism, and stroke Past History Medical History Neurological: NONE (02/12/18), CVA EENT: NONE Cardiovascular: hypertension, hyperlipidemia Respiratory: NONE Gastrointestinal: pancreatitis (ex-smoker/ex-EtOH) Hepatic: NONE Renal: NONE Musculoskeletal: osteoarthritis, rotator cuff injury Psychiatric: depression (post CVA) Endocrine: NONE Blood Disorders: DVT (01/15/18: B/L LE; has IVC filt), PE (01/15/18: large B/L PE-Xarelto) Cancer(s): colon/rectal cancer 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 History of MRSA: No History of VRE: No History of CDIFF: No Tetanus Vaccine: 09/13/17 Surgical History Surgical History: rotator cuff repair, right shoulder Psychiatric Family/Social Hx Family History Psychiatric Illness: Unknown family history of psychiatric illness Substance Use: The patient was not interested in answering questions Suicides: Denied Social History Living Situation: Lives with Significant Relationships (family/friends): and brother Education: Unknown Vocation/Occupation: Currently unemployed/retired Legal: No legal entanglements Healthly Behaviors Screening Tobacco Screening Tobacco Use from ED Docu: Quit >30 days ago - If tobacco counseling indicated - the following topics are required. - #1 Recognizing dangerous situations. - #2 Coping Skills. - #3 Basic information about quitting. Status of Tobacco Cessation Counseling: Not Applicable Cessation Med Status Not Applicable Alcohol Screening - ETOH screen POS if BAL >=80 or Audit-C>= M4/F3 Audit-C Score from Diag Assess: 1 Blood Alcohol Level: Blood alcohol level less than 10 Alcohol Use Screening Results: Neg per Audit C &/or BAL - If ETOH counseling indicated - the following topics are required. - #1 Express concern about the patient's - drinking at unhealthy levels, include informing - of national norms for moderate drinking: - men <= 14 drinks/week, max 4 drinks/occasion - women <= 7 drinks/week, max 3 drinks/occasion - #2 Providing feedback, including linking alcohol to - negative physical effects (liver injury, hypertension) - negative emotional effects (relationship problems and - depression) - negative occupational consequences (reduced work - performance) - #3 Advising the patient to abstain from alcohol or - to drink below national norms for moderate drinking - (as listed above). Status of ETOH Use Counseling: N/A B/C NO ETOH Use Metabolic Screening - Screen if on a Neuroleptic Medication - Metabolic screening should include: - Blood Pressure, BMI, Glucose or Hgb A1c, & a - Lipid profile from within the past 365 days. Metabolic Screening ([X]) Not Applicable, patient not on a neuroleptic. Exam and Plan Mental Status Examination Ambulation Status: The patient uses a walker to mobilize Appearance: Patient looked disheveled Attitude towards examiner: Marginally cooperative Psychomotor activity: Reduce psychomotor activity Behavior: Withdrawn but no bizarre behaviors Quality of speech: Reduced quantity and rate of speech Affect: Blunted affect Mood: Depressed mood Suicidal Ideation: Denied thoughts of suicide Homicidal Ideation: Denied thoughts of violence and denied thoughts of homicide Hallucinations: Denied hallucinations Paranoid/Delusional Material: Denied feeling paranoid, there were no delusions Difficulties with thought organization: Seem to be struggling to put his thoughts together but there was no loose associations and no incoherence Insight: Impaired insight Judgment: Impaired judgment Orientation: He was alert and oriented to time place and person Cognition: Some difficulties with attention and concentration Memory Function: No apparent difficulties and short-term memory Estimate of intellectual functioning: Average Assets/Strengths Patient Identified Assets/Strengths: The patient has a supportive Impression/Plan Impression and Plan: A 67-year-old white male with multiple medical issues including colon cancer, stroke, deep vein thrombosis and pulmonary embolus was admitted against his will from the medical floor because of suspicion that he was suicidal, he denies that and feels that his admission to the psychiatric unit is just a waste of time - Include all active medical diagnosis that require tx DSM 5 Diagnosis(es): Major depressive disorder, severe Adjustment disorder with depressed mood Colon cancer Status post CVA Status post DVT and PE - Initial Tx Plan for Active Psych & Medical Conditions Treatment Plan: Inpatient psychiatric care with safety checks every 15 minutes Nursing assessments, vital signs and patient education and Increase Lexapro to 20 mg daily Social work to obtain biopsychosocial assessment, obtain collateral and set up aftercare plans Group therapy, activity therapy, and milieu therapy Psychiatrist to evaluate medications daily and evaluate mental status daily - Factors that would help patient function - in a less restrictive setting. Factors: The patient will most likely be discharged next Saturday or Pamela provided that there is no further thoughts of suicide and his hopelessness improves
[2018-02-26 12:17] VITALS: BP 102/53
--- NOTE | 2018-02-26 13:20 | History & Physical ---
General Information and HPI MD Statement: I have seen and personally examined CHARLINE SHAFER and documented this H&P. The patient is a 67 year old M who presented with a patient stated chief complaint of severe depression/suicidal ideation. 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 Subsequent to this he was found to have some GI bleeding and his Xarelto was discontinued. He was severely depressed and expressed suicidal ideation to his and staff. Psychiatry evaluated and recommended psych admission. He was seen by PT/OT/ST and had recommended only speech therapy as OP. Plan from oncology view was to place port-a-cath and initiate chemotherapy (prior to above events). It was felt we need to address the depression first before proceeding with chemotherapy. The patient has been on low dose chronic narcotics (for back pain). Also on anti -cholinergic medication. Allergies/Medications Allergies: Coded Allergies: No Known Allergies (09/13/17) Home Med list Aspirin (Ecotrin*) 81 MG TABLET. 81 MG PO DAILY HEART Atorvastatin Calcium 40 MG TABLET 40 MG PO 1700 hyperlipidemia Cyclobenzaprine HCl 10 MG TABLET 10 MG PO TID PRN PAIN SCALE 4-6 (MODERATE) Escitalopram Oxalate (Lexapro) 10 MG TABLET 10 MG PO DAILY pain Monitor for hyponatremia or QTC prolongation; hold for either condition. Gabapentin 100 MG CAPSULE 200 MG PO TID pain Lidocaine (Lidoderm) 5 % ADH..PATCH 1 PAT EXT DAILY pain Losartan Potassium 50 MG TABLET 50 MG PO DAILY HTN Omeprazole 20 MG CAPSULE.DR 40 MG PO DAILY AC gerd Polyethylene Glycol 3350 (Miralax) 17 GRAM/DOSE POWDER 17 GM PO DAILY constipation Sennosides/Docusate Sodium (Senna Plus Tablet) 8.6 MG-50 MG TABLET 2 TAB PO QPM PRN constipation Compliance With Home Meds: GOOD Past History Travel History Traveled to [place] past 21 day No Medical History Neurological: NONE (02/12/18), CVA EENT: NONE Cardiovascular: hypertension, hyperlipidemia Respiratory: pulmonary embolism Gastrointestinal: pancreatitis (ex-smoker/ex-EtOH), upper GI bleed Hepatic: NONE Renal: NONE Musculoskeletal: osteoarthritis, rotator cuff injury Psychiatric: depression (post CVA) Endocrine: NONE Blood Disorders: DVT (01/15/18: B/L LE; has IVC filt), PE (01/15/18: large B/L PE-Xarelto) Cancer(s): colon/rectal cancer 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 FH: colon cancer BROTHER FHx: congenital heart disease MOTHER, ; Cause: Old age. FATHER, ; Cause: Old age. Relation not specified for: colon cancer Psychosocial History Where do you live? Home Who Do You Live With? spouse Services at Home: None Primary Language: Spanish ETOH Use: PRIOR USE Illicit Drug Use: denies illicit drug use Living Will? no Power of Millinery Worker/HCP? no Functional Ability ADLs Unknown: dressing, eating, toileting, bathing. Ambulation: independent IADLs Unknown: shopping, housework, finances, food prep, telephone, transportation, medication admin. Employment History Employment Unemployed Review of Systems Review of Systems Constitutional: Denies: no symptoms. EENTM: Denies: no symptoms. Cardiovascular: Denies: no symptoms. Respiratory: Denies: no symptoms. GI: Reports: abdominal pain, constipation. Genitourinary: Denies: no symptoms. Musculoskeletal: Reports: back pain, joint pain. Skin: Denies: no symptoms. Neurological/Psychological: Reports: depressed, emotional problems. Hematologic/Endocrine: Denies: no symptoms. Exam & Diagnostic Data Last 24 Hrs of Vital Signs/I&O Vital Signs Date Time Temp Pulse Resp B/P B/P Pulse O2 O2 Flow FiO2 Mean Ox Delivery Rate 02/26 1217 112 102/53 02/26 1015 101 115/59 02/26 0850 97.1 98 114/56 02/25 2042 96.6 92 136/56 Intake & Output 02/26 1600 04 0800 02/26 0000 Intake Total Output Total Balance Patient 202 lb Weight Physical Exam General Appearance Alert, Oriented X3, Cooperative, Mild Distress (SOME ABD CRAMPS) Skin No Rashes, No Breakdown, No Significant Lesion HEENT Atraumatic, PERRLA, EOMI, Mucous Membr. moist/pink Neck Supple, No JVD, No thryomegaly, +2 Carotid Pulse wo Bruit, No LAD Cardiovascular Regular Rate, Normal S1, Normal S2, No Murmurs Lungs Clear to Auscultation, Normal Air Movement (DIMINISHED BREATH SOUNDS @ BAS ) Abdomen Normal Bowel Sounds, Soft, No Tenderness (SOFTLY DISTENDED) Neurological Exam Findings: Normal Gait (SOME RESIDUAL ), SOME RESIDUAL EXPRESSIVE APHASIA (MILD) Cranial Nerves II through XII: INTACT Extremities No Clubbing, No Cyanosis, No Edema, Normal Pulses, No Tenderness/ Swelling Vascular Normal Pulses, Pulses Symmetrical Last 24 Hrs of Labs/Marlon: SEE INPATIENT CHART Assessment/Plan Assessment: Impression/Plan: #Depression with Suicidal Ideation- as above, patient with overwhelming recent medical diagnoses, including stage IV colon cancer, DVT/PE, CVA, GI bleed- expressed suicidal thoughts to and staff. Followed by psychiatry on medical floor and recommended psych admit to evaluate and treat. Plan: Admit to [facility] for evaluation and Rx of depression/SI. Plan as per psychiatry. Will attempt to minimize opioids. #S/P CVA- neurological status has been improving. Right sided weakness resolved. Expressive aphasia has also improved significantly since I last saw him a week ago. Plan: Will continue to follow. May benefit from more speech therapy. ASA 81 mg restarted. Continue Atorvastatin. #Constipation- patient c/o lack of BM. Mostly related to recent colon resection, inactivity, anti-cholinergic meds, and opioids. Plan: Will attempt to minimize opioids. Bowel regimen prescribed. (Colace, Senna, MOM, Miralax, etc.). #DVT/PE- h/o these and prior IVC filter placement. Currently off Xarelto due to GI bleed. Plan: Will discuss with GI when it is safe to restart anti-coagulation with Xarelto. #S/P GI Bleeding- Anemia secondary to blood loss- has been stable, however is off Xarelto. Plan: Will monitor for recurrent bleeding and discuss with GI when it is safe to restart Xarelto. #Hyperlipidemia- on Atorvastatin. Plan: Continue Atorvastatin. #Chronic Pain- has been on Percocet for some time. Plan: Will try Tramadol and use Percocet for severe pain. #HTN- stable on Losartan. Plan: Continue Losartan. As Ranked By This Provider Problem List: 1. Depression 2. CVA (cerebral vascular accident) 3. Adenocarcinoma of colon metastatic to liver 4. Gastrointestinal bleeding 5. Pulmonary emboli Miscellaneous Miscellaneous Documentation Attending Case Discussed With: Ravi CORTES,Ashok Primary Care Physician: Evan Sadler MD. Patient sees these Specialists Dr. Fortune- Oncology Level of Patient Care: KRYSTAL Hirsch MD Review Statement Attending Statement Attending MD Statement: examined this patient, reviewed EMR data (avail), discussed with nursing, amended to note Attending Assessment/Plan: As above.
--- NOTE | 2018-02-26 13:55 | SOCIAL WORKER SOCIAL HX PSYCH ---
Social History Basic Assessment Insurance Authorization: Insurance #1: Insurance name: [employer] Phone number: Policy number: [id number] Group number: Authorization number: Curr Source of Income/Entitlements: SSDI, 's employment income Primary Care Physician: Patient's PCP: Evan Sadler MD PCP's Present Problem: A 67-year-old white male with multiple medical issues including colon cancer, stroke, deep vein thrombosis and pulmonary embolus was admitted against his will from the medical floor because of suspicion that he was suicidal, he denies that and feels that his admission to the psychiatric unit is just a waste of time. The patient reportedly presented to the emergency department on 2017 and a psych consultation was requested because it was determined that the patient was severely depressed and may have attempted to strangle himself using the sheets. It was reported that 3 staff members witnessed the patient with a sheet around his neck as well as trying to wrap a cord around his neck. The patient was observed by staff attempting to strangle self with a sheet and reportedly when asked why he was doing that he said "I do not want to do it anymore "I want to ". The patient was not very forthcoming about his past history. He reported that he was prescribed the antidepressant. The patient was seen by the crisis law examiner in the emergency room as well as the consultation liaison (psychiatry) when he was on the medical floor. He does not appear the patient has had previous psychiatric admissions. Before the recent suicidal behavior it looks like the patient does not have a history of suicide attempts before that as well. Primary Language? Ecuadorean Language(s) Spoken At Home: Ecuadorean Living Situation Rents or Owns Home? owns Feel Safe Where You Are Living Yes Feel Safe in Relationships? Yes Allergies - Coded Allergies: No Known Allergies (09/13/17) Current Medications - Scheduled Medications Aspirin (Ecotrin*) 81 MG TABLET.DR 81 MG PO DAILY HEART #60 TAB Prescribed by Geri Vallejo MD on 02/24/18 Atorvastatin Calcium 40 MG TABLET 40 MG PO 1700 hyperlipidemia #30 TAB Prescribed by Geri Vallejo MD on 02/24/18 Escitalopram Oxalate (Lexapro) 10 MG TABLET 10 MG PO DAILY pain #30 TAB Prescribed by Geri Vallejo MD on 02/25/18 Gabapentin 100 MG CAPSULE 200 MG PO TID pain #90 CAP Prescribed by Geri Vallejo MD on 02/24/18 Lidocaine (Lidoderm) 5 % ADH..PATCH 1 PAT EXT DAILY pain #30 PAT Prescribed by Geri Vallejo MD on 02/24/18 Losartan Potassium 50 MG TABLET 50 MG PO DAILY HTN #30 TAB Prescribed by Geri Vallejo MD on 02/24/18 Omeprazole 20 MG CAPSULE.DR 40 MG PO DAILY AC gerd #30 CAP Prescribed by Geri Vallejo MD on 02/24/18 Polyethylene Glycol 3350 (Miralax) 17 GRAM/DOSE POWDER 17 GM PO DAILY constipation #30 POW Prescribed by Geri Vallejo MD on 02/24/18 Scheduled PRN Medications Cyclobenzaprine HCl 10 MG TABLET 10 MG PO TID PRN PAIN SCALE 4-6 (MODERATE) # 90 TAB Prescribed by Geri Vallejo MD on 02/25/18 Sennosides/Docusate Sodium (Senna Plus Tablet) 8.6 MG-50 MG TABLET 2 TAB PO QPM PRN constipation #60 TAB Prescribed by Geri Vallejo MD on 02/25/18 Discontinued Medications Amlodipine Besylate 5 MG TABLET 1 TAB PO DAILY BP #90 (Reported) Discontinued reason: Per Doctor Decision Losartan Potassium 100 MG TABLET 1 TAB PO DAILY BP #90 (Reported) Discontinued reason: Per Doctor Decision Oxycodone HCl/Acetaminophen (Percocet 5-325 MG Tablet) 5 MG-325 MG TABLET 1 TAB PO Q4P PRN PAIN SCALE 7-10 (SEVERE) #10 TAB Discontinued reason: Med no longer needed Rivaroxaban (Xarelto) 15 MG TABLET 1 TAB PO BID pulmonary embolism #42 TAB Discontinued reason: Per Doctor Decision Past History Past Medical History Neurological: NONE (02/12/18), CVA EENT: NONE Cardiovascular: hypertension, hyperlipidemia Respiratory: NONE Gastrointestinal: pancreatitis (ex-smoker/ex-EtOH) Hepatic: NONE Renal: NONE Musculoskeletal: osteoarthritis, rotator cuff injury Psychiatric: depression (post CVA) Endocrine: NONE Blood Disorders: DVT (01/15/18: B/L LE; has IVC filt), PE (01/15/18: large B/L PE-Xarelto) Cancer(s): colon/rectal cancer 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 Primary Childhood Caretakers: father, mother Family Life During Childhood: Pt stated that his family life as a child was "fine". DCF Involvement? No Relationship w/Mother: Pt stated that his relationship with his mother was good. He stated that his mother in the . Relationship w/Father: Pt stated that his relationship with his father was fine. He stated that his father in the . Any Sibling(s)? Yes Sibling's Gender(s)/Age(s): male Sibling 1:, female Sibling 2: Relationship w/Sibling(s): Pt stated that his brother approximately four years ago. His sister currently lives in [place] as a result he doesn't have a lot of contact. Relationship w/Friends: Pt stated that he has a few good friends. Family Psych/Sub Abuse/Add Hx: Pt denied. Abuse/Trauma History Trauma History/Current Trauma: Denies History of Trauma/Abuse Treatment? No Abuse/Trauma Treatment: N/A Legal History Legal Guardian/Address/Phone: N/A Current Legal Status: none Pending Court Dates: None reported. Have you ever been arrested No Hx of Juvenile Legal Charges? No Hx of Adult Legal Charges? No Civil Proceedings: N/A Domestic Relations Court: N/A Child Protective Serv Involvmnt Denied. Corporate Executive Denied. Psychosocial History Primary Support System: Strengths/Capabilities: Motivated for treatment, supportive spouse. Weaknesses: Serious medical issues. Physical Limitations (Interventions): Right side deficits, dysarthria (Improving) Last Physical: May 2017 History of Seizures? No History of Blackouts? No ADL Limitations: None reported. [place]/Social/Peer Relations Pt stated that he has a few good friends. Meaningful Activities: Pt stated that he used to enjoy golf but added "not anymore". Childhood Mosque: no adventist stated Current Yazdanism Affiliation: no adventist stated Is Spirituality Important to You? Pt did not comment. Patient's Ethnicity: Yazmin Cultural/Ethnic Issues: None reported. Are There Developmental Issues? No If Yes, Explain: N/A Psychiatric Treatment History Psych Treatment Inpatient Treatment No Outpatient Treatment No Current Tube Sorter: No current psych. medical billing representative known. Treatment of Prior Episodes: Unknown Diagnosis: F32.9 Major depressive disorder, unspecified r/o Adjustment disorder, unspecified Risk Factors: age (under 24/over 65), chronic/serious med cond., SA/MH hospitalized, male Substance Use/Abuse History Drug Use/Abuse Substance Used/Abused No History Explain: N/A Explain: N/A Have You Ever Attended AA? No Do You Attend AA Currently? No Do You Have a Sponsor? 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 of Jobs in Last 5 Years: 1 Attendance: Normal Performance: Good Comments: Pt was self empoyed for 25 years History Have You Been in The ? No Current Mental Status Mental Status Orientation: Person, Place, Situation Affect: Depressed Speech: Mumbled, Soft Neuro-vegetative: Anhedonia, Energy Decreased, Sleep Disturbance Appearance Appearance- Dress/Hygiene: Pt was under his blanket with his back turned to clinician. Behaviors Thought Process: WNL Thought Content: WNL Memory: WNL Insight: Fair SI/HI Risk Assessment Past Suicidal Ideation/Attempts No Current Suicidal Ideation/Att Yes Past Homicidal Ideation/Att: No Current Homicidal Ideation/Attempts No Degree of Intent: Plan Danger To: Self Gravely Disabled: Poor Judgment Risk Factors: Access to lethal weapons, Age (under 24 or over 65), Chronic/ serious med cond, Male Lethality Ratin - Conclusion and Recommendations for treatment - and discharge planning
--- NOTE | 2018-02-26 15:17 | SOCIAL WORKER PROG NOTE PSYCH ---
Social Work Progress Note Progress Note This credit underwriter met with patient who is on a one-to-one. He became agitated upon this credit underwriter asking any questions or attempting to engage him in conversation. Patient insisted, "I'm safe", yelling this multiple times. Patient identified health concerns as the triggers for his depression, stating that he was told that he had four years to live when he was diagnosed with cancer about one month ago. Patient did not want to continue with this conversation and agreed to plan on meeting again tomorrow.
[2018-02-26 16:29] VITALS: BP 111/52
[2018-02-26 19:51] VITALS: BP 96/55
[2018-02-26 22:31] VITALS: BP 108/52
[2018-02-26 23:01] LABS: ABSOLUTE BASOPHIL COUNT 0 /CUMM (0.0-0.2); ABSOLUTE EOSINOPHIL COUNT 0.5 /CUMM (0.0-0.7); ABSOLUTE GRANULOCYTE CT 6.3 /CUMM (1.4-6.5); ABSOLUTE LYMPH COUNT 0.8 /CUMM (1.2-3.4); BASOPHIL % 0.5 % (0.0-2.0); EOSINOPHIL % 5.6 % (0-5); HEMATOCRIT 25.7 % (42-52); MEAN CORPUSCULAR HGB 25.5 PG (27.0-31.0); MEAN CORPUSCULAR VOLUME 79.7 FL (80.0-94.0); PLATELET COUNT 231 /CUMM (130-400); RBC DISTRIBUTION WIDTH 16.7 % (11.5-14.5); RED BLOOD CELL CT 3.23 /CUMM (4.70-6.10); WHITE BLOOD CELL COUNT 8.6 /CUMM (4.8-10.8)
[2018-02-26 23:31] VITALS: BP 134/60
[2018-02-27 01:42] VITALS: BP 144/68
--- NOTE | 2018-02-27 03:12 | Event Note ---
Event Note Event Note: Patient went to bathroom and felt lightheaded, he was supported by the sitter and walked to room, and made comfortable on bed, his BP at that time : 96/55, pulse 104. Improved to 108/52 and 96 without any treatment. His Hx of GI bleed, H and H was rechecked, it was at baseline. Patient moved his bowel earlier today , and no one knows if her had any maggie blood or melena. Repeat BP was even better and no further complaints.
[2018-02-27 08:16] VITALS: BP 111/59
--- NOTE | 2018-02-27 08:54 | CP SOUTH PROGRESS NOTE PSYCH ---
Psych (Inpt) Progress Note Progress Note Laboratory Tests 02/26 Sodium (137 - 145 mmol/L) 137 Potassium (3.5 - 5.1 mmol/L) 3.3 L Chloride (98 - 107 mmol/L) 97 L Carbon Dioxide (22 - 30 mmol/L) 29 Anion Gap (5 - 16) 11 BUN (9 - 20 mg/dL) 15 Creatinine (0.7 - 1.2 mg/dL) 0.9 Estimated GFR (>60 ml/min) > 60 BUN/Creatinine Ratio (7 - 25 %) 16.7 CBC w Diff NO MAN DIFF REQ WBC (4.8 - 10.8 /CUMM) 8.6 RBC (4.70 - 6.10 /CUMM) 3.23 L Hgb (14.0 - 18.0 G/DL) 8.2 L Hct (42 - 52 %) 25.7 L MCV (80.0 - 94.0 FL) 79.7 L MCH (27.0 - 31.0 PG) 25.5 L MCHC (33.0 - 37.0 G/DL) 32.0 L RDW (11.5 - 14.5 %) 16.7 H Plt Count (130 - 400 /CUMM) 231 MPV (7.4 - 10.4 FL) 8.0 Gran % (42.2 - 75.2 %) 73.0 Lymphocytes % (20.5 - 51.1 %) 9.6 L Monocytes % (1.7 - 9.3 %) 11.3 H Eosinophils % (0 - 5 %) 5.6 H Basophils % (0.0 - 2.0 %) 0.5 Absolute Granulocytes (1.4 - 6.5 /CUMM) 6.3 Absolute Lymphocytes (1.2 - 3.4 /CUMM) 0.8 L Absolute Monocytes (0.10 - 0.60 /CUMM) 1.0 H Absolute Eosinophils (0.0 - 0.7 /CUMM) 0.5 Absolute Basophils (0.0 - 0.2 /CUMM) 0 Vital Signs Date Time Temp Pulse Resp B/P B/P Pulse O2 O2 Flow FiO2 02/27 0816 88 111/59 02/27 0816 98.4 88 111/59 02/27 0142 90 144/68 02/26 2331 88 20 134/60 02/26 2231 96 108/52 02/26 1951 97.7 104 96/55 02/26 1629 104 111/52 Mental Status Examination The patient was still in bed at 10:15 AM, remains irritable, speaks with an angry tone but insisted "I am not angry" And cooperative cooperative, reduced psychomotor activity, withdrawn no bizarre behaviors, reduced quantity and rate of speech, constricted and irritable affect affect, depressed mood, denied thoughts of suicide, denied thoughts of violence and denied thoughts of homicide, The patient denied hallucinations, denied feeling paranoid, there were no delusions, no loose associations and no incoherence, impaired insight, impaired judgment, He he seemed to have difficulties with attention and concentration Assessment: 67-year-old White male with multiple medical issues including colon cancer, stroke, deep vein thrombosis and pulmonary embolus was admitted against his will from the medical floor because of suspicion that he was suicidal, he denies that and feels that his admission to the psychiatric unit is just a waste of time Diagnoses: 1) Major Depressive Disorder, severe 2) Adjustment disorder with depressed mood 3) Colon cancer 4) Status post CVA 5) Status post DVT 6) S/P PE Treatment Plan Update: Continue Lexapro to 20 mg daily
[2018-02-27 11:53] VITALS: BP 132/60
[2018-02-27 15:50] VITALS: BP 109/64
--- NOTE | 2018-02-27 18:10 | SOCIAL WORKER PROG NOTE PSYCH ---
Social Work Progress Note Progress Note This global technical writer attempted to meet with patient. He presented as agitated, head in his hands and providing no eye contact. Patient became increasingly more agitated as this global technical writer asked questions and tried to engaged conversation. Patient stated that questions were "stupid." He agreed to try to meet again tomorrow.
[2018-02-27 19:48] VITALS: BP 137/64
[2018-02-28 00:11] VITALS: BP 131/60
[2018-02-28 07:48] VITALS: BP 149/69
--- NOTE | 2018-02-28 08:12 | CP SOUTH PROGRESS NOTE PSYCH ---
Psych (Inpt) Progress Note Progress Note Laboratory Tests 02/28 1016 Chemistry Troponin I Pending Vital Signs Date Time Temp Pulse Resp B/P B/P Pulse O2 O2 Flow FiO2 Mean Ox Delivery Rate 02/28 1015 96.8 88 20 149/69 02/28 0748 96.8 88 149/69 02/28 0011 100 131/60 02/27 1948 98.6 90 137/64 02/27 1550 80 109/64 04 1153 92 132/60 Mental Status Examination (10:25 AM to 10:50 AM) The patient reported chest pain about 30 minutes earlier. EKG and Troponin requested He acknowledged that he had a period of disorientation in the musician instrumental hours, but he was alert and oriented to time, place, and person during the interview (the only thing that he missed was the exact date he thought it was March 06 instead of February 28) He started off being very irritable but then calmed down and seemed to be a little bit more engaged He is focused on discharge and I told him that it is looking like it is 90% chance is going to be Saturday, March 03, 2018 He has mild disarticulation problem because of previous CVA no bizarre behaviors, depressed mood but he denied feeling hopeless, denied wishing , denied thoughts of suicide, denied thoughts of violence and denied thoughts of homicide , The patient denied hallucinations, denied feeling paranoid, there were no delusions, no loose associations and no incoherence, impaired insight, impaired judgment, Some difficulties with attention and concentration, seems to have intact short- term memory Assessment: 67-year-old White male with multiple medical issues including colon cancer, stroke, deep vein thrombosis and pulmonary embolus was admitted against his will from the medical floor because of suspicion that he was suicidal, he denies that Today he started off very irritable than seem to be a little bit more reasonable as the interview went along, he is agreeable now to having the come in for a family meeting and discharge on Saturday Diagnoses: 1) Major Depressive Disorder, severe 2) Adjustment Disorder with depressed mood 3) Colon cancer 4) Status post CVA 5) Status post DVT 6) S/P PE Treatment Plan Update: EKG and troponin panel 2 Discontinue as needed Flexeril Discontinue lidocaine patch Increase that as needed dose for sleep to one full milligram of Xanax given that he was unable to sleep last night by his report Continue Lexapro to 20 mg daily continue inpatient psychiatric care We will very likely move with her discharge on Saturday, March 03, 2018
[2018-02-28 12:17] VITALS: BP 144/87
[2018-02-28 15:30] VITALS: BP 98/54
--- NOTE | 2018-02-28 17:09 | SOCIAL WORKER PROG NOTE PSYCH ---
Social Work Progress Note Progress Note This race and sports book writer met with patient. Patient presented with some agitation, however, less agitated than previous days. He even smiled and laughed, appropriately, at some times during this meeting. Patient expressed interest in discharging and was agreeable to planning for discharge next week. This race and sports book writer discussed case with Dr. Rodrigues and patient will be referred to [facility]. Patient was agreeable to this. Patient was also agreeable to a family meeting with his , Rowena Peoples. This race and sports book writer spoke with Rowena Peoples ([phone]) by phone and a family meeting has been scheduled for 03/03/18, at 11am.
[2018-02-28 19:53] VITALS: BP 103/70
[2018-03-01 07:40] VITALS: BP 138/69
--- NOTE | 2018-03-01 11:23 | CP SOUTH PROGRESS NOTE PSYCH ---
Psych (Inpt) Progress Note Progress Note Include the following elements, when applicable: Involvement in the active treatment of the patient with behavioral observations of the patient and the patient's response to the treatment. Review of the ongoing treatment process in the context of the treatment plan. Indication of how multi-disciplinary staff members are carrying out the treatment plan. Plans for future interventions and recommendations for revision of the treatment plan. Liaison with other physicians/providers. Progress Note: Pt very confused this morning. Feels that [facility] is a "[facility] house" and is frustrated by having to stay. Notes that he is being given too many medications. Sleep was very poor overnight as well. He noted that he feels as though, "this place is driving me crazy" and expressed concernt about "making it through the weekend," which he clarified to mean that, "Its getting to me but I'm not saying I'm going to hurt myself or anything like that." He denies SI or HI. He does not believe that this is a hospital. Denies AVHs. Current Medications Sig/Natalee Start time Last Medication Dose Route Stop Time Status Admin Alprazolam 1 MG AT BEDTIME NEED.. 02/28 1100 AC 03/01 PO 03/07 1042 0147 Alprazolam 0.25 MG Q4 HRS NEEDED PRN 02/27 1030 AC 02/27 PO 03/06 1029 2103 Aspirin Buffered 81 MG DAILY 02/26 1000 AC 03/01 PO 0909 Atorvastatin Calcium 40 MG 1700 02/26 1700 AC 02/28 PO 1630 Docusate Sodium 100 MG BID 02/26 1531 AC 03/01 PO 0908 Escitalopram Oxalate 20 MG DAILY 02/27 1000 AC 03/01 PO 0909 Losartan Potassium 50 MG DAILY 02/26 1000 AC 03/01 PO 0909 Magnesium Hydroxide 30 ML AT BEDTIME NEED.. 02/26 1545 AC PO Omeprazole 40 MG DAILY AC 02/26 0700 AC 03/01 PO 0635 Oxycodone/ 1 TAB Q6P PRN 02/26 1530 AC 02/28 Acetaminophen PO 1630 Polyethylene Glycol 17 GM DAILY 02/26 1000 AC 02/27 PO 0817 Senna 187 MG QPM PRN 02/27 2015 AC PO Tramadol HCl 50 MG Q8P PRN 02/26 1530 AC 02/26 PO 1750 Laboratory Tests 02/285 1016 2250 Chemistry Sodium (137 - 145 mmol/L) 137 Potassium (3.5 - 5.1 mmol/L) 3.3 L Chloride (98 - 107 mmol/L) 97 L Carbon Dioxide (22 - 30 mmol/L) 29 Anion Gap (5 - 16) 11 BUN (9 - 20 mg/dL) 15 Creatinine (0.7 - 1.2 mg/dL) 0.9 Estimated GFR (>60 ml/min) > 60 BUN/Creatinine Ratio (7 - 25 %) 16.7 Troponin I (<0.11 ng/ml) 0.04 0.04 Hematology CBC w Diff NO MAN DIFF REQ WBC (4.8 - 10.8 /CUMM) 8.6 RBC (4.70 - 6.10 /CUMM) 3.23 L Hgb (14.0 - 18.0 G/DL) 8.2 L Hct (42 - 52 %) 25.7 L MCV (80.0 - 94.0 FL) 79.7 L MCH (27.0 - 31.0 PG) 25.5 L MCHC (33.0 - 37.0 G/DL) 32.0 L RDW (11.5 - 14.5 %) 16.7 H Plt Count (130 - 400 /CUMM) 231 MPV (7.4 - 10.4 FL) 8.0 Gran % (42.2 - 75.2 %) 73.0 Lymphocytes % (20.5 - 51.1 %) 9.6 L Monocytes % (1.7 - 9.3 %) 11.3 H Eosinophils % (0 - 5 %) 5.6 H Basophils % (0.0 - 2.0 %) 0.5 Absolute Granulocytes (1.4 - 6.5 /CUMM) 6.3 Absolute Lymphocytes (1.2 - 3.4 /CUMM) 0.8 L Absolute Monocytes (0.10 - 0.60 /CUMM) 1.0 H Absolute Eosinophils (0.0 - 0.7 /CUMM) 0.5 Absolute Basophils (0.0 - 0.2 /CUMM) 0 Vital Signs Date Time Temp Pulse Resp B/P B/P Pulse O2 O2 Flow FiO2 Mean Ox Delivery Rate 03/01 0909 101 138/69 03/01 0740 97.0 101 138/69 02/28 1953 98.3 92 103/70 02/28 1530 98 98/54 02/28 1217 98 144/87 MSE General appearance: good hygiene and grooming; Attitude: barely cooperative; Eye contact: none Movement: no psychomotor agitation or slowing; Speech: nl fluency, nl rate/rhythm, nl volume, nl prosody, slightly mumbled; Mood: "not good" Affect: extremely irritable, flat, appropriate, constricted, non-labile, congruent; Thought process: tangiental at best Thought content: denied SI or HI, no paranoid ideation; Perception: denied hallucinations- auditory, visual, does not appear to be responding to internal stimuli; I/J: limited A/P: Pt with hx of MDD and SI now confused and very irritable. Concern for delirium, which he is at higher risk with opiate and BDZ administration. - Start risperidone 0.5mg BID - Start trazdone 50mg QHS - Otherwise continue current medication regimen -Encourage integration into the milieu
[2018-03-01 12:04] VITALS: BP 137/62
[2018-03-01 16:04] VITALS: BP 149/72
[2018-03-01 20:00] VITALS: BP 148/73
[2018-03-02 07:51] VITALS: BP 126/62
[2018-03-02 12:23] VITALS: BP 119/56
--- NOTE | 2018-03-02 12:37 | CP SOUTH PROGRESS NOTE PSYCH ---
Psych (Inpt) Progress Note Progress Note Include the following elements, when applicable: Involvement in the active treatment of the patient with behavioral observations of the patient and the patient's response to the treatment. Review of the ongoing treatment process in the context of the treatment plan. Indication of how multi-disciplinary staff members are carrying out the treatment plan. Plans for future interventions and recommendations for revision of the treatment plan. Liaison with other physicians/providers. Progress Note: Pt notes that he slept better overnight. Quite adamant that leaving tomorrow ( staff note family meeting scheduled but no express plan for discharge). Pt less confused today. Denies SI or HI. No longer thinks he is going to here at [facility]. Current Medications Sig/Natalee Start time Last Medication Dose Route Stop Time Status Admin Acetaminophen 650 MG .STK-MED ONE 03/02 0103 DC PO 03/02 0104 Acetaminophen 650 MG Q6P PRN 03/01 1145 AC 03/02 PO 0715 Alprazolam 1 MG AT BEDTIME NEED.. 02/28 1100 AC 03/01 PO 03/07 1042 0147 Alprazolam 0.25 MG Q4 HRS NEEDED PRN 02/27 1030 AC 02/27 PO 03/06 1029 2103 Aspirin Buffered 81 MG DAILY 02/26 1000 AC 03/02 PO 1022 Atorvastatin Calcium 40 MG 1700 02/26 1700 AC 02/28 PO 1630 Docusate Sodium 100 MG BID 02/26 1531 AC 03/02 PO 1022 Escitalopram Oxalate 20 MG DAILY 02/27 1000 AC 03/02 PO 1022 Losartan Potassium 50 MG DAILY 02/26 1000 AC 03/02 PO 1022 Magnesium Hydroxide 30 ML AT BEDTIME NEED.. 02/26 1545 AC PO Omeprazole 40 MG DAILY AC 02/26 0700 AC 03/02 PO 0715 Oxycodone/ 1 TAB Q6P PRN 02/26 1530 AC 02/28 Acetaminophen PO 1630 Polyethylene Glycol 17 GM DAILY 02/26 1000 AC 02/27 PO 0817 Risperidone 0.5 MG BID 03/01 1121 AC 03/02 PO 1022 Senna 187 MG QPM PRN 02/27 2015 AC PO Tramadol HCl 50 MG Q8P PRN 02/26 1530 AC 02/26 PO 1750 Trazodone HCl 50 MG AT BEDTIME 03/01 2200 AC PO Trazodone HCl 50 MG AT BEDTIME NEED.. 03/01 1130 AC PO Laboratory Tests 03/02 1016 Chemistry Sodium (137 - 145 mmol/L) 140 Potassium (3.5 - 5.1 mmol/L) 3.9 Chloride (98 - 107 mmol/L) 98 Carbon Dioxide (22 - 30 mmol/L) 28 Anion Gap (5 - 16) 14 Troponin I (<0.11 ng/ml) 0.04 0.04 Vital Signs Date Time Temp Pulse Resp B/P B/P Pulse O2 O2 Flow FiO2 Mean Ox Delivery Rate 03/02 1223 112 119/56 03/02 1022 97.9 96 20 126/62 03/02 0751 97.9 96 126/62 03/01 2000 96.9 96 148/73 03/01 1604 100 149/72 MSE General appearance: good hygiene and grooming; Attitude: barely cooperative; Eye contact: none Movement: no psychomotor agitation or slowing; Speech: nl fluency, nl rate/rhythm, nl volume, nl prosody, slightly mumbled; Mood: "I'm leaving tomorrow" Affect: extremely irritable, flat, appropriate, constricted, non-labile, congruent; Thought process: tangiental at best Thought content: denied SI or HI, no paranoid ideation; Perception: denied hallucinations- auditory, visual, does not appear to be responding to internal stimuli; I/J: limited A/P: Pt with hx of MDD and SI very irritable with less confusion today. - Continue current medication regimen - Encourage integration into the milieu
[2018-03-02 15:50] VITALS: BP 106/57
[2018-03-02 19:41] VITALS: BP 103/52
[2018-03-03 07:38] VITALS: BP 103/58
--- NOTE | 2018-03-03 08:19 | CP SOUTH PROGRESS NOTE PSYCH ---
Psych (Inpt) Progress Note Progress Note Vital Signs Date Time Temp Pulse B/P O2 Flow FiO2 03/03 0738 97.6 92 103/58 03/02 194 98.4 104 103/52 Mental Status Examination The patient seemed to be in better spirits, less irritable, and more easily engaged in converation He was alert and oriented to time, place, and person. he was calm and collected/no confusion or disorientation he was steady on his feet without the walker I spoke to his while he was listening, she reported that she feels that he is ready for discharge and did not have safety concern as far as his self-harm or violence no bizarre behaviors, he denied feeling hopeless, denied wishing , denied thoughts of suicide, denied thoughts of violence, and denied thoughts of homicide, The patient denied hallucinations, denied feeling paranoid, there were no delusions, no loose associations and no incoherence Assessment: A 67-year-old White male with multiple medical issues including colon cancer, stroke, deep vein thrombosis and pulmonary embolus was admitted against his will from the medical floor because of suspicion that he was suicidal, he denied that. Today, seemed significantly better than last week, did not show irritability and seemed to be in good spirits, no thoughts of suicide , reported that she felt he was ready for discharge Diagnoses: 1) Major Depressive Disorder, severe 2) Adjustment Disorder with depressed mood 3) Colon cancer 4) Status post CVA; 5) Status post DVT 6) S/P PE Treatment Plan Update: D/C Home today D/C Home today Treatment Plan Update: 3) Colon cancer 4) Status post CVA 5) Status post DVT 6) S/P PE Treatment Plan Update:
[2018-03-03] MEDS ORDERED: RISPERIDONE0.5 M1 PO (08:43)
[2018-03-03] MEDS ORDERED: LEXAPRO20 M1 PO (08:43)
[2018-03-03] MEDS ORDERED: PERCOCET 5-3251 EACH PO (08:43)
[2018-03-03] MEDS ORDERED: TRAZODONE HCL50 M1 PO (08:43)
[2018-03-03] MEDS ORDERED: TRAMADOL HCL50 M1 PO (08:43)
[2018-03-03 08:54] VITALS: BP 103/58
--- NOTE | 2018-03-03 09:00 | DISCHARGE SUMMARY REPORT-PSYCH ---
Visit Information Visit Dates/Diagnosis' Admission Date: 02/25/18 Discharge Date: 03/03/18 Reason for Admission: "I just rolled over on the sheet, I did not try to hurt myself." Psy Discharge Primary Diag: MDD Hospital Course Significant Lab Findings: Lab Anion Gap 14 03/02/18 0620 Carbon Dioxide 28 mmol/L 03/02/18 0620 Chloride 98 mmol/L 03/02/18 0620 Potassium 3.9 mmol/L 03/02/18 0620 Sodium 140 mmol/L 03/02/18 0620 Troponin I 0.04 ng/ml 02/28/182034 Hct 25.7 % L 02/26/18 2250 Hgb 8.2 G/DL L 02/26/18 2250 Course Complications: The patient did not have any complications while he was on the inpatient psychiatric unit. Consultations: Patient had a history and physical examination done while he was on the inpatient psychiatric unit. Please refer to the patient's electronic health record for the details of the H&P Allergies: Coded Allergies: No Known Allergies (09/13/17) Hospital Course/TX Response: February 26, 2018: Impression and Plan: A 67-year-old white male with multiple medical issues including colon cancer, stroke, deep vein thrombosis and pulmonary embolus was admitted against his will from the medical floor because of suspicion that he was suicidal, he denies that and feels that his admission to the psychiatric unit is just a waste of time DSM 5 Diagnosis(es): Major depressive disorder, severe Adjustment disorder with depressed mood Colon cancer Status post CVA Status post DVT and PE Treatment Plan: Inpatient psychiatric care with safety checks every 15 minutes Nursing assessments, vital signs and patient education and Increase Lexapro to 20 mg daily Social work to obtain biopsychosocial assessment, obtain collateral and set up aftercare plans Group therapy, activity therapy, and milieu therapy Psychiatrist to evaluate medications daily and evaluate mental status daily February 27, 2018: Continue Lexapro to 20 mg daily February 28, 2018: Treatment Plan Update: EKG and troponin panel 2 Discontinue as needed Flexeril Discontinue lidocaine patch Increase that as needed dose for sleep to one full milligram of Xanax given that he was unable to sleep last night by his report Continue Lexapro to 20 mg daily continue inpatient psychiatric care We will very likely move with her discharge on Saturday, March 03, 2018 March 01, 2018: Dr. Anna MD (covering for weekend) Pt with hx of MDD and SI now confused and very irritable. Concern for delirium, which he is at higher risk with opiate and BDZ administration. - Start risperidone 0.5mg BID - Start trazdone 50mg QHS - Otherwise continue current medication regimen -Encourage integration into the milieu March 02, 2018: No medication changes by Dr. Anna MD March 03, 2018: Vital Signs Date Time Temp Pulse B/P 03/03 0738 97.6 92 103/58 03/02 1941 98.4 104 103/52 Mental Status Examination The patient seemed to be in better spirits, less irritable, and more easily engaged in converation He was alert and oriented to time, place, and person. he was calm and collected/ no confusion or disorientation he was steady on his feet without the walker I spoke to his while he was listening, she reported that she feels that he is ready for discharge and did not have safety concern as far as his self-harm or violence no bizarre behaviors, he denied feeling hopeless, denied wishing , denied thoughts of suicide, denied thoughts of violence, and denied thoughts of homicide, patient denied hallucinations, denied feeling paranoid, there were no delusions, no loose associations and no incoherence Assessment: A 67-year-old White male with multiple medical issues including colon cancer, stroke, deep vein thrombosis and pulmonary embolus was admitted against his will from the medical floor because of suspicion that he was suicidal, he denied that. Today, seemed significantly better than last week, did not show irritability and seemed to be in good spirits, no thoughts of suicide , reported that she felt he was ready for discharge Diagnoses: 1) Major Depressive Disorder, severe 2) Adjustment Disorder with depressed mood 3) Colon cancer 4) Status post CVA; 5) Status post DVT 6) S/P PE Treatment Plan Update: D/C Home today Discharge HBIPS - Tobacco Use Treatment Offered Post DC Medications Offered: Not Applicable Post DC Tobacco Treatment Plan: Not Applicable - EtOH/Drug Use D/O Treatment Offered Post DC Medications Offered: NA-No EtOH/Drug Use D/O Post DC EtOH/SubAbuse [place] Plan: NA-No EtOH/Drug Use D/O Metabolic Screening - Screen if on a Neuroleptic Medication - Metabolic screening should include: - Blood Pressure, BMI, Glucose or Hgb A1c, & a - Lipid profile from within the past 365 days. Metabolic Screening Patient on a neuroleptic(s) . Enter below results for Hemoglobin A1C, and lipid panel if obtained during the last 365 days. BMI: 25.800 Blood Pressure: 103/58 Laboratory Results From [facility] (If applicable): Lab Cholesterol 145 MG/DL 02/12/18 0400 Cholesterol/HDL Ratio 3 % 02/12/18 0400 HDL Cholesterol 48 mg/dL 02/12/18 0400 Hemoglobin A1c 5.1 % 02/12/18 0400 LDL Cholesterol, Calc 73 mg/dL 02/12/18 0400 Triglycerides 123 mg/dL 02/12/18 0400 Discharge Instructions General Discharge Information Multiple Neuroleptics: ([X]) Not Applicable Discharge Diet Regular Discharge Activity As Tolerated DC Disposition: Home Referrals Ordered Referrals Provider Referral 03/06/18 For Groups: [[facility]] [facility] [address], [place] [phone] Intake appointment: , 03/06/18, at 1pm with Lesli Smiley LCSW Provider Referral 03/25/18 For Groups: [[facility]] [facility] [address], [place] [phone] Medication Appointment: Sunday, March 25, 2018, at 9am with Dr. Ricardo Prescriptions Stop taking the following medications: Lidocaine (Lidoderm) 5 % ADH..PATCH ON SKIN DAILY Qty = 30 Gabapentin (Gabapentin) 100 MG CAPSULE ORAL THREE TIMES DAILY Qty = 90 Cyclobenzaprine HCl (Cyclobenzaprine HCl) 10 MG TABLET ORAL THREE TIMES DAILY as needed for PAIN SCALE 4-6 (MODERATE) Qty = 90 Escitalopram Oxalate (Lexapro) 10 MG TABLET ORAL DAILY Qty = 30 Oxycodone HCl/Acetaminophen (Percocet 5-325 MG Tablet) 5 MG-325 MG TABLET ORAL EVERY 4 HOURS NEEDED as needed for PAIN SCALE 7-10 (SEVERE) Qty = 10 Continue taking these medications: Atorvastatin Calcium (Atorvastatin Calcium) 40 MG TABLET 40 Milligram ORAL 5 PM Qty = 30 Comments: Last Taken: 03/02/18 Time: 1600 Losartan Potassium (Losartan Potassium) 50 MG TABLET 50 Milligram ORAL DAILY Qty = 30 Comments: Last Taken: 03/03/18 Time: 0900 Aspirin (Ecotrin*) 81 MG TABLET. 81 Milligram ORAL DAILY Qty = 60 Comments: Last Taken: 03/03/18 Time: 0900 Polyethylene Glycol 3350 (Miralax) 17 GRAM/DOSE POWDER 17 Gram ORAL DAILY Qty = 30 Comments: Last Taken: 02/27/18 Time: 0800 Omeprazole (Omeprazole) 20 MG CAPSULE. 40 Milligram ORAL DAILY BEFORE BREAKFAST Qty = 30 Comments: Last Taken: 03/03/18 Time: 0600 Sennosides/Docusate Sodium (Senna Plus Tablet) 8.6 MG-50 MG TABLET 2 Tablet ORAL Every night as needed for constipation Qty = 60 Comments: NOT GIVEN IN THE HOSPITAL. Start taking the following new medications: Oxycodone HCl/Acetaminophen (Percocet 5-325 MG Tablet) 5 MG-325 MG TABLET 1 Tablet ORAL EVERY SIX HOURS NEEDED as needed for PAIN SCALE 7-10 ( SEVERE) Qty = 60 No Refills Comments: Last Taken: 02/28/18 Time: 1630 Tramadol HCl (Tramadol HCl) 50 MG TABLET 50 Milligram ORAL EVERY 8 HOURS NEEDED as needed for PAIN SCALE 4-6 ( MODERATE) Qty = 45 No Refills Comments: Last Taken: 02/26/18 Time: 1800 Escitalopram Oxalate (Lexapro) 20 MG TABLET 1 Tablet ORAL DAILY Qty = 30 No Refills Comments: Last Taken: 03/03/18 Time: 0900 Trazodone HCl (Trazodone HCl) 50 MG TABLET 50 Milligram ORAL AT BEDTIME as needed for SLEEP Qty = 30 No Refills Comments: DID NOT RECEIVE IN THE HOSPITAL. Risperidone (Risperidone) 0.5 MG TABLET 0.5 Milligram ORAL TWICE DAILY Qty = 30 No Refills Comments: Last Taken: 03/03/18 Time: 0900 Studies Pending at Discharge None Copies To: [facility]
--- NOTE | 2018-03-03 09:01 | Patient Discharge Instructions ---
Psych Discharge Inst General Discharge Information Reason for Admission: suspicion of self-harm Psy Discharge Primary Diag+ MDD Summary Tests/Major Procedures Lab Cholesterol 145 MG/DL 02/12/18 0400 Cholesterol/HDL Ratio 3 % 02/12/18 0400 HDL Cholesterol 48 mg/dL 02/12/18 0400 Hemoglobin A1c 5.1 % 02/12/18 0400 LDL Cholesterol, Calc 73 mg/dL 02/12/18 0400 Triglycerides 123 mg/dL 02/12/18 0400 Studies Pending at DC: None Patient Instructions Contact Information Your Psychiatrist on [facility] was Ashok Rodrigues MD * If you are experiencing an emergency related to this hospitalization, please call [phone] to contact the treating psychiatrist or the psychiatrist-on- call. * To Request a copy of your medical records, please contact the Medical Records Department at [phone]. * To request results of studies pending at the time of discharge, please call [phone]. * Continue your Medications until directed to stop by your Healthcare provider. General Medication Information Please continue to take your new medications and your continued home medications , unless otherwise indicated on your discharge medication list, or unless directed by your MD or [employer] [employer]TER MOLDER to stop them. Special Instructions Diet Regular Activity As Tolerated - Tobacco Use Treatment Offered Post DC Medications Offered: Not Applicable Post DC Tobacco Treatment Plan: Not Applicable - EtOH/Drug Use D/O Treatment Offered Post DC Medications Offered: NA-No EtOH/Drug Use D/O Post DC EtOH/SubAbuse [place] Plan: NA-No EtOH/Drug Use D/O Metabolic Screening Patient on a neuroleptic(s) . Enter below results for Hemoglobin A1C, and lipid panel if obtained during the last 365 days. BMI: 25.800 Blood Pressure: 103/58 Laboratory Results From [facility] (If applicable): Lab Cholesterol 145 MG/DL 02/12/18 0400 Cholesterol/HDL Ratio 3 % 02/12/18 0400 HDL Cholesterol 48 mg/dL 02/12/18 0400 Hemoglobin A1c 5.1 % 02/12/18 0400 LDL Cholesterol, Calc 73 mg/dL 02/12/18 0400 Triglycerides 123 mg/dL 02/12/18 0400 Advance Directives Does the Patient have Medical Advance Directives No/Refused further info Does Pt have Psychiatric Advance Directives? No/Refused further info Does Patient have a Designated Surrogate Decision Maker: No Information About Psychiatric Advance Directives Provided? Refused Discharge Plan Post Hospital Treatment Plan: OPS
--- NOTE | 2018-03-03 16:32 | SOCIAL WORKER PROG NOTE PSYCH ---
Social Work Progress Note Progress Note This keno writer met with patient. He accepted the outpatient appointments (intake and med appointments, see below) with [facility]PS. Patient stated that he was not interested in any other behavioral health services at this time due to the number of other medical apppointments that he and his will schedule. He described his mood as "great" and was eager to discharge and return home. He denied SI/HI/AH/VH. He identified a safety plan in which he would "tell my or my friends. I have a small group of really close friends." Patient was also informed that he would be provided with crisis numbers and warm lines. Patient and his met with this keno writer for a family meeting prior to discharge. Patient's did not have any concerns or safety concerns. She was agreeable to the patient discharging today. Discharge plans were reviewed ( see appointments below). She stated that she would schedule necessary medical appointments for the patients upon returning home. Patient and his were encouraged to speak with his psychiatrist or intake community mental health social worker should they change their mind and feel that additional treatment (in addition to the OPS intake and medication appointments) is needed. Patient and his were also informed of the crisis numbers and warm lines numbers which will be provided at discharge. [facility] appointments: - 03/06/18 at 1pm with Lesli Smiley - 03/25/[address] Ricardo Faxed Referral(s) Referred To: [facility] Transition of Care Documents sent: Health Summary Faxed to: [facility] Fax #: [phone] Faxed by: Sheryl Messer LCSW Date faxed: 03/03/18 Time Faxed: [phone]
--- NOTE | 2018-03-03 16:59 | SOCIAL WORKER PROG NOTE PSYCH ---
Social Work Progress Note Faxed Referral(s) Referred To: [facility] Transition of Care Documents sent: Transfer summary Faxed to: [facility] Fax #: [phone] Faxed by: Jeanette Mcallister LCSW Date faxed: 03/03/18 Time Faxed: [phone]
== END 2018-03-03 11:43 | DRG 881 ==
LOC: CP SOUTH 16:48
PROVIDERS: Internal Medicine
DX: F32.9 Major depressive disorder, single episode, unspecified (principal)
CPT/HCPCS: 36415; 82436